=== PATIENT | female | born 1960 | race Caucasian/White ===

== ENCOUNTER 2020-10-02 12:35 | Inpatient (IN) | payer BC, OTHER ==
--- NOTE | 2020-10-02 13:26 | XR ---
EXAMINATION TYPE: XR chest 2V DATE OF EXAM: 10/02/2020 COMPARISON: 08/26/2011 HISTORY: 60 year-old female shortness of breath TECHNIQUE: PA and lateral views FINDINGS: Heart upper limits of normal in size. Bilateral patchy airspace disease. No pleural effusion. IMPRESSION: Patchy bilateral airspace disease. Correlate for multifocal or COVID pneumonia or other etiologies.
--- NOTE | 2020-10-02 14:21 | ED ---
SOB HPI - General Source: patient, RN notes reviewed Mode of arrival: wheelchair Limitations: no limitations <Santosh Barker - Last Filed: 10/02/20 14:30> <Law Trinidad - Last Filed: 10/02/20 16:31> - General Chief Complaint: Shortness of Breath Stated Complaint: Covid+, SOB Time Seen by Provider: 10/02/20 14:11 - History of Present Illness Initial Comments: Patient is a 60-year-old female that presents to the emergency Department status post, Covid-positive 09/23/2020 complaining of increased shortness of breath and difficulty breathing. She noted that as of last night she became dyspneic, weak to the point where was Lynn wall. She was in moderate distress while sitting up in bed during exam and interview. She nodded yes and no to questions for the most part but answered and short words sentences for others. Patient does not use supplemental oxygen at home. She denied any chest pain headache nausea vomiting diarrhea constipation fever fatigue chills (Santosh Barker) - Related Data Home Medications Medication Instructions Recorded Confirmed No Known Home Medications 10/02/20 10/02/20 Allergies Allergy/AdvReac Type Severity Reaction Status Date / Time codeine Allergy Rash/Hives Verified 10/02/20 15:23 Sulfa (Sulfonamide Allergy Rash/Hives Verified 10/02/20 15:23 Antibiotics) Review of Systems ROS Other: All systems not noted in ROS Statement are negative. <Santosh Barker - Last Filed: 10/02/20 14:30> ROS Other: All systems not noted in ROS Statement are negative. <Law Trinidad - Last Filed: 10/02/20 16:31> ROS Statement: Those systems with pertinent positive or pertinent negative responses have been documented in the HPI. Past Medical History Past Medical History: No Reported History History of Any Multi-Drug Resistant Organisms: None Reported Past Surgical History: Orthopedic Surgery Past Psychological History: Unable to Obtain Smoking Status: Former smoker Past Alcohol Use History: None Reported Past Drug Use History: None Reported <Santosh Barker - Last Filed: 10/02/20 14:30> General Exam Limitations: no limitations General appearance: alert, in distress (Moderate), obese Head exam: Present: atraumatic, normocephalic, normal inspection Eye exam: Present: normal appearance, PERRL, EOMI. Absent: scleral icterus, conjunctival injection, periorbital swelling Neck exam: Present: normal inspection. Absent: tenderness, meningismus, lymphadenopathy Respiratory exam: Present: decreased breath sounds. Absent: respiratory distress, wheezes, rales, rhonchi, stridor Cardiovascular Exam: Present: regular rate, normal rhythm, normal heart sounds. Absent: systolic murmur, diastolic murmur, rubs, gallop, clicks GI/Abdominal exam: Present: soft, normal bowel sounds. Absent: distended, tenderness, guarding, rebound, rigid Extremities exam: Present: normal inspection, full ROM, normal capillary refill. Absent: tenderness, pedal edema, joint swelling, calf tenderness Neurological exam: Present: alert, oriented X3, CN II-XII intact Psychiatric exam: Present: normal affect, normal mood Skin exam: Present: warm, dry, intact, normal color. Absent: rash <Santosh Barker - Last Filed: 10/02/20 14:30> Course <Law Trinidad - Last Filed: 10/02/20 16:31> Vital Signs 10/02/20 10/02/20 10/02/20 12:59 15:24 15:49 Temperature 98.3 F Pulse Rate 83 112 H 115 H Respiratory 16 20 20 Rate Blood Pressure 104/69 96/69 112/60 O2 Sat by Pulse 86 L 92 L 99 Oximetry - Reevaluation(s) Reevaluation #1: 10/02/20 14:54 EKG obtained at 1408, showing SVT, no ST segment elevation, rate of 190, QRS duration is narrow at 84, QTC 458, EKG repeated after 2 doses of adenosine, persistent supraventricular tachycardia, rate of 184, QRS duration 84, QTC 466, this EKG was obtained at 1439. (Law Trinidad) Reevaluation #2: 10/02/20 1537 Repeat EKG showing atrial fibrillation with RVR, rate of 163, QRS duration 86, Q TC 258, no ST segment elevation. (Law Trinidad) Medical Decision Making - EKG Data -: EKG Interpreted by Il Rate: tachycardia <Santosh Barker - Last Filed: 10/02/20 14:30> - Lab Data Result diagrams: 10/02/20 14:48 10/02/20 14:48 <Law Trinidad - Last Filed: 10/02/20 16:31> - Medical Decision Making 60-year-old female with increased shortness of breath and respiratory distress times one day. Labs, EKG, chest x-ray, 6 L via nasal cannula, 15 L via nonrebreather (in case oxygen levels don't come up), activity therapy specialist ordered. Case discussed with and handed off to Dr. Trinidad (Santosh Barker) - Lab Data Lab Results 10/02/20 10/02/20 10/02/20 Range/Units 14:48 14:48 14:48 WBC 3.8 (3.8-10.6) k/uL RBC 5.22 (3.80-5.40) m/uL Hgb 15.3 (11.4-16.0) gm/dL Hct 42.9 (34.0-46.0) % MCV 82.1 (80.0-100.0) fL MCH 29.4 (25.0-35.0) pg MCHC 35.8 (31.0-37.0) g/dL RDW 13.3 (11.5-15.5) % Plt Count 174 (150-450) k/uL MPV 8.0 Neutrophils % 79 % Lymphocytes % 12 % Monocytes % 5 % Eosinophils % 0 % Basophils % 0 % Neutrophils # 3.0 (1.3-7.7) k/uL Lymphocytes # 0.5 L (1.0-4.8) k/uL Monocytes # 0.2 (0-1.0) k/uL Eosinophils # 0.0 (0-0.7) k/uL Basophils # 0.0 (0-0.2) k/uL PT 10.3 (9.0-12.0) sec INR 1.0 (<1.2) APTT 22.7 (22.0-30.0) sec D-Dimer 1.77 H (<0.60) mg/L FEU Sodium 132 L (137-145) mmol/L Potassium 4.0 (3.5-5.1) mmol/L Chloride 100 (98-107) mmol/L Carbon Dioxide 19 L (22-30) mmol/L Anion Gap 13 mmol/L BUN 25 H (7-17) mg/dL Creatinine 0.89 (0.52-1.04) mg/dL Est GFR (CKD-EPI)AfAm 81 (>60 ml/min/1.73 sqM) Est GFR (CKD-EPI)NonAf 70 (>60 ml/min/1.73 sqM) Glucose 131 H (74-99) mg/dL Plasma Lactic Acid Jelani (0.7-2.0) mmol/L Calcium 7.8 L (8.4-10.2) mg/dL Magnesium 2.0 (1.6-2.3) mg/dL Total Bilirubin 0.5 (0.2-1.3) mg/dL AST 122 H (14-36) U/L ALT 47 H (4-34) U/L Alkaline Phosphatase 63 (38-126) U/L Lactate Dehydrogenase 2894 H (313-618) U/L Troponin I (0.000-0.034) ng/mL C-Reactive Protein 68.2 H (<10.0) mg/L Total Protein 6.5 (6.3-8.2) g/dL Albumin 3.7 (3.5-5.0) g/dL 10/02/20 10/02/20 Range/Units 14:48 14:48 WBC (3.8-10.6) k/uL RBC (3.80-5.40) m/uL Hgb (11.4-16.0) gm/dL Hct (34.0-46.0) % MCV (80.0-100.0) fL MCH (25.0-35.0) pg MCHC (31.0-37.0) g/dL RDW (11.5-15.5) % Plt Count (150-450) k/uL MPV Neutrophils % % Lymphocytes % % Monocytes % % Eosinophils % % Basophils % % Neutrophils # (1.3-7.7) k/uL Lymphocytes # (1.0-4.8) k/uL Monocytes # (0-1.0) k/uL Eosinophils # (0-0.7) k/uL Basophils # (0-0.2) k/uL PT (9.0-12.0) sec INR (<1.2) APTT (22.0-30.0) sec D-Dimer (<0.60) mg/L FEU Sodium (137-145) mmol/L Potassium (3.5-5.1) mmol/L Chloride (98-107) mmol/L Carbon Dioxide (22-30) mmol/L Anion Gap mmol/L BUN (7-17) mg/dL Creatinine (0.52-1.04) mg/dL Est GFR (CKD-EPI)AfAm (>60 ml/min/1.73 sqM) Est GFR (CKD-EPI)NonAf (>60 ml/min/1.73 sqM) Glucose (74-99) mg/dL Plasma Lactic Acid Jelani 1.7 (0.7-2.0) mmol/L Calcium (8.4-10.2) mg/dL Magnesium (1.6-2.3) mg/dL Total Bilirubin (0.2-1.3) mg/dL AST (14-36) U/L ALT (4-34) U/L Alkaline Phosphatase (38-126) U/L Lactate Dehydrogenase (313-618) U/L Troponin I 0.026 (0.000-0.034) ng/mL C-Reactive Protein (<10.0) mg/L Total Protein (6.3-8.2) g/dL Albumin (3.5-5.0) g/dL - EKG Data EKG Comments: Ventricular rate 190 bpm, NV interval *milliseconds, QRS duration 84 ms, QT/QTC 258/458 ms, PareT axes */2/-77. Atrial flutter with variable AV block, marked ST abnormality, possible inferior some endocardial injury, abnormal ECG. No previous EKG available to compare study to. (Santosh Barker) Critical Care Time Critical Care Time: Yes Total Critical Care Time: 35 <Law Trinidad - Last Filed: 10/02/20 16:31> Disposition <Santosh Barker - Last Filed: 10/02/20 14:30> Is patient prescribed a controlled substance at d/c from ED?: No Decision to Admit Reason: Admit from EC Decision Date: 10/02/20 Decision Time: 16:31 <Law Trinidad - Last Filed: 10/02/20 16:31> Clinical Impression: Pneumonia due to COVID-19 virus, Hypoxia, SVT (supraventricular tachycardia), Atrial fibrillation with RVR Disposition: ADMITTED IP TO THIS HOSP Condition: Stable Referrals: Herberth Hurd MD [Primary Care Provider] - 1-2 days
[2020-10-02] MEDS ORDERED: DILTIAZEM DRIP BOLUS FROM BAG 1 MG SOLN IV ONE (14:49)
[2020-10-02] MEDS ORDERED: DEXAMETHASONE SOD PHOSPHATE 10 MG/ML 1 ML VIAL IV STA (14:55)
[2020-10-02] MEDS ORDERED: DILTIAZEM 125 MG in SODIUM CHLORIDE 0.9% 100 ML IV SCH (15:00)
[2020-10-02 15:23] LABS: Basophils % (A) 0 %; Eosinophils % (A) 0 %; HCT 42.9 % (34.0-46.0); HGB 15.3 gm/dL (11.4-16.0); Lymphocytes # (A) 0.5 k/uL (1.0-4.8); Lymphocytes % (A) 12 %; MCH 29.4 pg (25.0-35.0); MCHC 35.8 g/dL (31.0-37.0); MCV 82.1 fL (80.0-100.0); Monocytes # (A) 0.2 k/uL (0-1.0); Monocytes % (A) 5 %; Neutrophils % (A) 79 %; Platelet Count 174 k/uL (150-450); RBC 5.22 m/uL (3.80-5.40); RDW 13.3 % (11.5-15.5); WBC 3.8 k/uL (3.8-10.6)
[2020-10-02 15:35] LABS: Partial Thromboplastin Time 22.7 sec (22.0-30.0); Prothrombin Time 10.3 sec (9.0-12.0)
[2020-10-02 15:39] LABS: Albumin 3.7 g/dL (3.5-5.0); C Reactive Protein 68.2 mg/L (<10.0); Calcium 7.8 mg/dL (8.4-10.2); Total Bilirubin 0.5 mg/dL (0.2-1.3); Total Protein 6.5 g/dL (6.3-8.2)
[2020-10-02 15:50] LABS: D-Dimer 1.77 mg/L FEU (<0.60)
[2020-10-02] MEDS ORDERED: HEPARIN SODIUM 1,000 UN/ML (10ML VL) IV PRN (16:02)
[2020-10-02] MEDS ORDERED: HEPARIN SODIUM 1,000 UN/ML (10ML VL) IV ONE (16:02)
[2020-10-02] MEDS ORDERED: CALCIUM GLUCONATE 1 GM in SODIUM CHLORIDE 0.9% 100 ML IVPB ONE (16:03)
[2020-10-02] MEDS ORDERED: NALOXONE 0.4 MG/ML 1 ML VIAL IV PRN ×2 (16:21→18:31)
[2020-10-02] MEDS: HEPARIN SOD,PORK IN 0.45% NACL 25,000 UNIT in 0.45% NACL 1 250ML.BAG IV SCH (17:52)
[2020-10-02] MEDS: SODIUM CHLORIDE 0.9% 1,000 ML IV SCH (18:01)
[2020-10-02] MEDS ORDERED: ONDANSETRON 4 MG/2 ML VIAL IVP PRN (18:31)
--- NOTE | 2020-10-02 18:40 | P.HPIM ---
History of Present Illness H&P Date: 10/02/20 Chief Complaint: sob 60-year-old female that presents to the emergency Department with worsening shortness of breath, cough, fevers and chills, nausea and vomiting as well as diarrhea. No chest or abdominal pain. Patient was diagnosed with Covid- 09/23/2020, was discharged home but came back due to worsening symptoms. In the emergency department her 2 saturations were 85% on room air, heart rate was up in the 120s to 130s. Blood pressure on the lower side. EKG showed atrial fibrillation with rapid ventricular response. She was started on Cardizem drip as well as heparin drip. She was subsequently admitted for further management. Review of Systems Complete review of system performed, pertinent positives per HPI, otherwise negative Past Medical History Past Medical History: No Reported History History of Any Multi-Drug Resistant Organisms: None Reported Past Surgical History: Orthopedic Surgery Past Psychological History: Unable to Obtain Smoking Status: Former smoker Past Alcohol Use History: None Reported Past Drug Use History: None Reported Medications and Allergies Home Medications Medication Instructions Recorded Confirmed Type No Known Home Medications 10/02/20 10/02/20 History Allergies Allergy/AdvReac Type Severity Reaction Status Date / Time codeine Allergy Rash/Hives Verified 10/02/20 15:23 Sulfa (Sulfonamide Allergy Rash/Hives Verified 10/02/20 15:23 Antibiotics) Physical Exam Vitals: Vital Signs Temp Pulse Resp BP Pulse Ox 10/02/20 18:01 126 H 20 116/61 91 L 10/02/20 15:49 115 H 20 112/60 99 10/02/20 15:24 112 H 20 96/69 92 L 10/02/20 12:59 98.3 F 83 16 104/69 86 L Intake and Output 10/02/20 10/02/20 10/02/20 06:59 14:59 22:59 Other: Weight 128.367 kg Constitutional: No acute distress, conversant, pleasant Eyes:Anicteric sclerae, moist conjunctiva, no lid-lag, PERRLA, ENMT: Oropharynx clear, no erythema, exudates Neck: Supple, FROM, no masses, or JVD, No carotid bruits, No thyromegaly Lungs: Clear to auscultation, Clear to percussion, Normal respiratory effort, no accessory muscle use Cardiovascular: Irregularly irregular, tachycardic No murmurs, gallops, or rubs, No peripheral edema Abdominal: Soft, Nontender, no guarding, rebound or rigidity, Normoactive bowel sounds, No hepatomegaly, No splenomegaly, No palpable mass Skin: Normal temperature, tone, texture, turgor, no induration, No subcutaneous nodules, No rash, lesions, No ulcers Extremities: No digital cyanosis, No clubbing, Pedal pulses intact and symmetrical, Radial pulses intact and symmetrical, No calf tenderness Psychiatric: Alert and oriented to person, place and time, appropriate affect, intact judgement Neuro: Muscles Strength 5/5 in all 4 extremities, Sensation to light touch grossly present throughout, Cranial nerves II-XII grossly intact, no focal sensory deficits Results CBC & Chem 7: 10/02/20 14:48 10/02/20 14:48 Labs: Abnormal Lab Results - Last 24 Hours (Table) 10/02/20 10/02/20 10/02/20 Range/Units 14:48 14:48 14:48 Lymphocytes # 0.5 L (1.0-4.8) k/uL D-Dimer 1.77 H (<0.60) mg/L FEU Sodium 132 L (137-145) mmol/L Carbon Dioxide 19 L (22-30) mmol/L BUN 25 H (7-17) mg/dL Glucose 131 H (74-99) mg/dL Calcium 7.8 L (8.4-10.2) mg/dL AST 122 H (14-36) U/L ALT 47 H (4-34) U/L Lactate Dehydrogenase 2894 H (313-618) U/L C-Reactive Protein 68.2 H (<10.0) mg/L Assessment and Plan Plan: Acute hypoxemic respiratory failure secondary to Covid 19 pneumonia Start Decadron 6 mg IV daily Out of a window for remdisivir treatment Currently on 100 percent nonrebreather mask, continue to keep sats above 92%. Pulmonary consult Atrial fibrillation with rapid ventricular response Cardizem drip Add metoprolol 25 mg by mouth twice daily Cardiology consult Echo Hyponatremia Gentle IV fluid hydration Recheck in am Patient admitted to inpatient, expected length of stay more than 2 midnights
[2020-10-02] MEDS: METOPROLOL TARTRATE 25 MG TAB PO SCH ×2 (21:52→21:57)
--- NOTE | 2020-10-03 08:50 | XR ---
EXAMINATION TYPE: XR chest 1V portable DATE OF EXAM: 10/03/2020 COMPARISON: 10/02/2020 HISTORY: Shortness of breath TECHNIQUE: Single frontal view of the chest is obtained. FINDINGS: There are diffuse interstitial and partially consolidative opacities in both lungs with mi ld interval worsening since the prior study. The heart is mildly prominent. There is no large pleural effusion. There is no thorax. The osseous st ructures are intact. Impression: Diffuse lung opacification with moderate interval worsening in the interval.
[2020-10-03] MEDS ORDERED: HYDROcodone/APAP 5-325MG 1 EACH TAB PO PRN (08:55)
[2020-10-03] MEDS ORDERED: DILTIAZEM ORAL 30 MG TAB PO SCH (09:00)
[2020-10-03] MEDS ORDERED: TOCILIZUMAB 800 MG in SODIUM CHLORIDE 0.9% 60 ML IV ONE (09:02)
[2020-10-03] MEDS: FAMOTIDINE 20 MG TAB PO SCH (09:18)
[2020-10-03] MEDS: ASCORBIC ACID 500 MG TAB PO SCH (09:18)
[2020-10-03] MEDS: DEXAMETHASONE SOD PHOSPHATE 10 MG/ML 1 ML VIAL IV SCH (09:18)
[2020-10-03] MEDS: ZINC SULFATE 220 MG CAP PO SCH (09:18)
[2020-10-03] MEDS: METOPROLOL TARTRATE 25 MG TAB PO SCH ×2 (09:18→21:12)
[2020-10-03] MEDS: CHOLECALCIFEROL 25 MCG (1000 IU) TABLET PO SCH (09:22)
[2020-10-03 09:33] LABS: Albumin 3.3 g/dL (3.5-5.0)
[2020-10-03 09:35] LABS: D-Dimer 0.98 mg/L FEU (<0.60); Partial Thromboplastin Time 47.5 sec (22.0-30.0)
[2020-10-03 09:50] LABS: Basophils % (A) 0 %; Eosinophils % (A) 0 %; HGB 14.3 gm/dL (11.4-16.0); Lymphocytes # (A) 0.4 k/uL (1.0-4.8); Lymphocytes % (A) 9 %; MCHC 34.1 g/dL (31.0-37.0); MCV 85.1 fL (80.0-100.0); Mean Platelet Volume 7.9; Monocytes # (A) 0.2 k/uL (0-1.0); Monocytes % (A) 5 %; Neutrophils # (A) 3.2 k/uL (1.3-7.7); Neutrophils % (A) 83 %; Platelet Count 191 k/uL (150-450); RBC 4.94 m/uL (3.80-5.40); RDW 13.5 % (11.5-15.5); WBC 3.9 k/uL (3.8-10.6)
[2020-10-03 09:57] LABS: C Reactive Protein 76.8 mg/L (<10.0); Calcium 7.8 mg/dL (8.4-10.2); Magnesium 2.4 mg/dL (1.6-2.3); Phosphorus 3.1 mg/dL (2.5-4.5); Total Bilirubin 0.5 mg/dL (0.2-1.3)
--- NOTE | 2020-10-03 10:00 | ECHOF ---
Referral Reason:sob MEASUREMENTS -------- HEIGHT: 175.3 cm WEIGHT: 131.1 kg BP: IVSd: 1.4 cm (0.6 - 1.1) LVIDd: 4.0 cm (3.9 - 5.3) LVPWd: 1.4 cm (0.6 - 1.1) IVSs: 2.1 cm LVIDs: 2.6 cm LVPWs: 1.6 cm MV EXCURSION: 14.317 mm (> 18.000) MV EF SLOPE: 79 mm/s (70 - 150) EPSS: 0.5 cm MV E Harshad: 0.98 m/s MV DecT: 222 ms MV A Harshad: 0.84 m/s MV E/A Ratio: 1.16 RAP: 5.00 mmHg RVSP: 15.28 mmHg FINDINGS -------- This was a technically difficult study with suboptimal views. The left ventricular size is normal. There is moderate concentric left ventricular hypertrophy. O verall left ventricular systolic function is normal with, an EF between 55 - 60 %. The right ventricle is normal in size. The left atrial size is normal. The right atrial size is normal. xx ml of Lumason was utilized for enhancement of images. The aortic valve is trileaflet and appears structurally normal. The mitral valve is normal. There is trace mitral regurgitation. The tricuspid valve appears structurally normal. Trace tricuspid regurgitation present. Right nisha tricular systolic pressure is normal at < 35 mmHg. There is no pulmonic regurgitation present. The aortic root size is normal. IVC Not well visulized. There is no pericardial effusion. CONCLUSIONS -------- 1. The left ventricular size is normal. 2. There is moderate concentric left ventricular hypertrophy. 3. Overall left ventricular systolic function is normal with, an EF between 55 - 60 %. 4. There is trace mitral regurgitation. 5. Trace tricuspid regurgitation present. 6. There is no pericardial effusion. CYLINDER BLOCK MECHANIC: Jenny Stoddard RD
[2020-10-03] MEDS ORDERED: FUROSEMIDE 10 MG/ML 4 ML VIAL IV STA (10:17)
[2020-10-03 10:39] LABS: Potassium 4.6 mmol/L (3.5-5.1)
[2020-10-03 11:04] LABS: Glucose,Whole Blood 125 mg/dL (75-99)
--- NOTE | 2020-10-03 11:18 | P.CRDCN ---
History of Present Illness Consult date: 10/03/20 History of present illness: CHIEF COMPLAINT: A. fib with RVR HISTORY OF PRESENT ILLNESS: This is a 60-year-old female with a past medical history significant for former nicotine dependence. 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 We have been asked to see the patient in consultation for A. fib with RVR. Patient presented to the hospital with a chief complaint of shortness of breath. Patient was diagnosed with Covid on 09/23/2020. Patient was admitted to the hospital for further evaluation. Patient was found to be in SVT and received 2 doses of adenosine. Repeat EKG received afib with RVR. Patient was started on IV cardizem and IV heparin. Patient has since converted to sinus mechanism. IV Cardizem was discontinued this morning. Patient has been started on metoprolol 25 mg twice a day. Patient is currently on 15L NRB mask and also Airvo. Patient is going to be transferred to the ICU for further monitoring. DIAGNOSTICS: EKG reveals A. fib with RVR. Current telemetry reveals sinus mechanism. Chest xray patchy bilateral airspace disease. Laboratory data: WBC 3.9. Hemoglobin 14.3. Platelet count 191. Sodium 136. Potassium 4.6. BUN 26. Creatinine 0.88. Magnesium 2.4. Troponin 0.026. Current home cardiac medications include none Echocardiogram completed revealed ejection fraction 55-60%, trace mitral regurgitation, and trace tricuspid regurgitation REVIEW OF SYSTEMS: Thorough review of systems not completed secondary to limited evaluation/examination and due to Covid19 PHYSICAL EXAM: Thorough physical exam not completed secondary to limited evaluation/examination and due to Covid19 ASSESSMENT: Covid 19 Acute hypoxic respiratory failure Paroxysmal supraventricular tachycardia New-onset paroxysmal atrial fibrillation with RVR Former nicotine dependence PLAN: IV Cardizem has been discontinued Continue metoprolol 25 mg twice a day Patient does not require anticoagulation from a cardiac standpoint. May discontinue IV heparin from a cardiac standpoint. However, this was discussed with Dr. Neves who would like IV heparin to remain infusing at this time. We will defer anticoagulation to their service. Further recommendations pending patient course Nurse practitioner note has been reviewed by physician. Signing provider agrees with the documented findings, assessment, and plan of care. Past Medical History Past Medical History: No Reported History History of Any Multi-Drug Resistant Organisms: None Reported Past Surgical History: Orthopedic Surgery Past Psychological History: Unable to Obtain Smoking Status: Former smoker Past Alcohol Use History: None Reported Past Drug Use History: None Reported - Past Family History Father Family Medical History: Cancer, Hypertension Mother Family Medical History: Cancer Medications and Allergies Home Medications Medication Instructions Recorded Confirmed Type No Known Home Medications 10/02/20 10/02/20 History Allergies Allergy/AdvReac Type Severity Reaction Status Date / Time codeine Allergy Rash/Hives Verified 10/02/20 15:23 Sulfa (Sulfonamide Allergy Rash/Hives Verified 10/02/20 15:23 Antibiotics) Physical Exam Vitals: Vital Signs Temp Pulse Pulse Resp BP BP Pulse Ox 10/03/20 08:00 98.3 F 89 20 136/70 93 L 10/03/20 04:50 84 18 108/58 88 L 10/02/20 23:20 98.4 F 72 19 111/58 93 L 10/02/20 21:45 91 L 10/02/20 21:00 98.6 F 90 20 108/59 87 L 10/02/20 18:01 126 H 20 116/61 91 L 10/02/20 15:49 115 H 20 112/60 99 10/02/20 15:24 112 H 20 96/69 92 L 10/02/20 12:59 98.3 F 83 16 104/69 86 L Intake and Output 10/02/20 10/03/20 10/03/20 22:59 06:59 14:59 Intake Total 54.5 0 Balance 54.5 0 Intake: Intake, IV Titration 54.5 Amount Heparin Sod,Pork in 0.45% 54.5 NaCl 25,000 unit In 0.45 % NaCl 1 250ml.bag @ 7.79 UNITS/KG/HR 10 mls/hr IV .Q24H [facility] Rx#:[id number] Oral 0 Other: Voiding Method Bedside Commode Bedside Commode # Voids 2 Weight 128.367 kg 131.5 kg Results 10/03/20 07:23 10/03/20 08:27 Cardiac Enzymes 10/02/20 10/02/20 10/03/20 Range/Units 14:48 14:48 08:27 AST 122 H 114 H (14-36) U/L Lactate Dehydrogenase 2894 H 3596 H (313-618) U/L Troponin I 0.026 (0.000-0.034) ng/mL Coagulation 10/02/20 10/02/20 10/03/20 Range/Units 14:48 22:34 08:27 PT 10.3 (9.0-12.0) sec APTT 22.7 36.0 H 47.5 H (22.0-30.0) sec CBC 10/02/20 10/03/20 Range/Units 14:48 07:23 WBC 3.8 3.9 (3.8-10.6) k/uL RBC 5.22 4.94 (3.80-5.40) m/uL Hgb 15.3 14.3 (11.4-16.0) gm/dL Hct 42.9 42.0 (34.0-46.0) % Plt Count 174 191 (150-450) k/uL Comprehensive Metabolic Panel 10/02/20 10/03/20 Range/Units 14:48 08:27 Sodium 132 L 136 L (137-145) mmol/L Potassium 4.0 4.6 (3.5-5.1) mmol/L Chloride 100 104 (98-107) mmol/L Carbon Dioxide 19 L 25 (22-30) mmol/L BUN 25 H 26 H (7-17) mg/dL Creatinine 0.89 0.88 (0.52-1.04) mg/dL Glucose 131 H 135 H (74-99) mg/dL Calcium 7.8 L 7.8 L (8.4-10.2) mg/dL AST 122 H 114 H (14-36) U/L ALT 47 H 49 H (4-34) U/L Alkaline Phosphatase 63 68 (38-126) U/L Total Protein 6.5 6.0 L (6.3-8.2) g/dL Albumin 3.7 3.3 L (3.5-5.0) g/dL Current Medications Generic Name Dose Route Start Last Admin Trade Name Freq PRN Reason Stop Dose Admin Acetaminophen 650 mg 10/02/20 16:21 Acetaminophen Tab 325 Mg Tab PO Q6HR PRN Mild Pain or Fever > 100.5 Hydrocodone Bitart/Acetaminophen 1 each 10/03/20 08:55 10/03/20 09:19 Hydrocodone/Apap 5-325mg 1 Each Tab PO 1 each Q6HR PRN Administration Pain Ascorbic Acid 1,000 mg 04/03/21 09:00 10/03/20 09:18 Ascorbic Acid 500 Mg Tab PO 1,000 mg DAILY EILEEN Administration Cholecalciferol 100 mcg 10/03/20 09:00 10/03/20 09:22 Cholecalciferol 25 Mcg (1000 Iu) Tablet PO 100 mcg DAILY EILEEN Administration Dexamethasone Sodium Phosphate 6 mg 10/03/20 09:00 10/03/20 09:18 Dexamethasone Sod Phosphate 10 Mg/Ml 1 Ml Vial IV 6 mg DAILY EILEEN Administration Famotidine 40 mg 10/03/20 09:00 10/03/20 09:18 Famotidine 20 Mg Tab PO 40 mg DAILY EILEEN Administration Heparin Sodium (Porcine) 0 unit 10/02/20 16:02 Heparin Sodium 1,000 Un/Ml (10ml Vl) IV PER PROTOCOL PRN Low PTT Protocol Heparin Sodium/Sodium Chloride 250 mls @ 10 mls/hr 10/02/20 16:15 10/02/20 23:19 25,000 unit/ Sodium Chloride IV 9.79 units/kg/hr .Q24H EILEEN 12.567 mls/hr Titration Protocol 7.79 UNITS/KG/HR Sodium Chloride 1,000 mls @ 25 mls/hr 10/02/20 16:30 10/02/20 18:01 Saline 0.9% IV 50 mls/hr .Q24H EILEEN Administration Metoprolol Tartrate 25 mg 10/02/20 18:45 10/03/20 09:18 Metoprolol Tartrate 25 Mg Tab PO 25 mg BID EILEEN Administration Naloxone HCl 0.2 mg 10/02/20 16:21 Naloxone 0.4 Mg/Ml 1 Ml Vial IV Q2M PRN Opioid Reversal Ondansetron HCl 4 mg 10/02/20 18:31 Ondansetron 4 Mg/2 Ml Vial IVP Q8HR PRN Nausea And Vomiting Zinc Sulfate 220 mg 10/03/20 09:00 10/03/20 09:18 Zinc Sulfate 220 Mg Cap PO 220 mg DAILY EILEEN Administration Intake and Output 10/02/20 10/03/20 10/03/20 22:59 06:59 14:59 Intake Total 54.5 0 Balance 54.5 0 Intake: Intake, IV Titration 54.5 Amount Heparin Sod,Pork in 0.45% 54.5 NaCl 25,000 unit In 0.45 % NaCl 1 250ml.bag @ 7.79 UNITS/KG/HR 10 mls/hr IV .Q24H [facility] Rx#:[id number] Oral 0 Other: Voiding Method Bedside Commode Bedside Commode # Voids 2 Weight 128.367 kg 131.5 kg 10/03/20 07:23 10/03/20 08:27
--- NOTE | 2020-10-03 12:26 | US ---
EXAMINATION TYPE: US venous doppler duplex LE BI DATE OF EXAM: 10/03/2020 11:45 AM COMPARISON: NONE CLINICAL HISTORY: 60-year-old female pain, COVID. SIDE PERFORMED: Bilateral TECHNIQUE: The lower extremity deep venous system is examined utilizing real time linear array sonog justine with graded compression, doppler sonography and color-flow sonography. FINDINGS: VESSELS IMAGED: Common Femoral Vein Deep Femoral Vein Greater Saphenous Vein * Femoral Vein Popliteal Vein Small Saphenous Vein * Proximal Calf Veins (* superficial vessels) Right Leg: no evidence of DVT Left Leg: no evidence of DVT IMPRESSION: No evidence for DVT within the bilateral lower extremities imaged from the groin to the upper calves.
--- NOTE | 2020-10-03 13:12 | P.PN ---
Subjective Progress Note Date: 10/03/20 (delayed charting aptient seen at 0830) Principal diagnosis: Shortness of breath Patient is a 60-year-old female with no known past medical history who presented to the ER secondary to shortness of breath and cough. She was diagnosed with coated 19 on 09/23/20. In the ER she was satting 85% on room air and was found to be in A. fib with RVR and heart rates 120 to 130. Initial labs showed d- dimer of 1.77, lymphocytes 0.5, sodium 132, carbon dioxide 19, BUN 25, AST 122, ALT 47, LDH 2894, and CRP to exceed 8.2. She was admitted and was started on Decadron. She was outside of the window for Remdesivir. She was started on a Cardizem drip as well as metoprolol orally for her A. fib. She was also started on a heparin drip. She's given fluids for her hyponatremia. Pulmonary was consulted. She was requiring a nonrebreather on admission and overnight on 10/03 she was requiring maximal therapy through an air follow along with her nonrebreather to maintain low normal O2 sats. She converted to normal sinus rhythm and her Cardizem drip was stopped. Cardiology was consulted for her A. fib. She was subsequently transferred to the ICU. She had reported some leg pain and venous Dopplers were negative in bilateral lower extremities heparin drip was stopped and she had converted to normal sinus mechanism and she was subsequently started on prophylactic Lovenox. Echocardiogram showed ejection fraction 55-60% with moderate LVH. Patient seen and examined at bedside. She reports shortness of breath, headache, no nausea or vomiting, no diarrhea, extreme fatigue. General: Ill appearing, moderate distress appears at stated age Derm: warm, dry Head: atraumatic, normocephalic, symmetric Eyes: EOMI, no lid lag, anicteric sclera Mouth: no lip lesion, mucus membranes moist Cardiovascular: S1S2 reg, no murmur, positive posterior tibial pulse bilateral, Lungs: Diffuse wheezing, 3 word conversational dyspnea, + sternal retractions Abdominal: soft, nontender to palpation, no guarding, no appreciable organomegaly Ext: no gross muscle atrophy, no edema, no contractures Neuro: CN II-XI grossly intact, no focal neuro deficits Psych: Alert, oriented, appropriate affect COVID 19 pneumonia with acute hypoxic respiratory failure -Continue with Decadron -Zinc, vitamin C, vitamin D -Pulmonary recommendations: Case discussed with Dr. Holland who agrees with transferring patient to the ICU in consideration of Actemra - supportive care - scheduled and prn BD - Lovenox - Follow inflammatory markers -1 unit convalescent plasma Paroxysmal atrial fibrillation, currently in normal sinus rhythm -Trigger is likely pulmonary disease with her COVID -Continue with metoprolol -Cardiology recommendations appreciated -Echocardiogram with ejection fraction 55-60%, moderate LVH Transaminitis likely secondary to illness -Follow liver enzymes -If remains elevated after Covid improves consider cholesterol level and liver ultrasound to rule out fatty liver disease Hyponatremia secondary to dehydration -Improving -Continue with IV fluids Morbid obesity with BMI 42.8 -Structured outpatient weight loss DVT prophylaxis: Lovenox Discussed with: Patient, nursing, Dr. Holland Anticipated discharge: undetermined Anticipated discharge place: undetermined A total of 45 minutes was spent on the care of this complex patient more than 50% of the time was spent in counseling and care coordination. Objective - Vital Signs Vital signs: Vital Signs Temp 98.3 F 10/03/20 08:00 Pulse 89 10/03/20 08:00 Resp 20 10/03/20 08:00 BP 136/70 10/03/20 08:00 Pulse Ox 93 L 10/03/20 08:00 Intake & Output 10/02/20 10/03/20 10/03/20 18:59 06:59 18:59 Intake Total 54.5 0 Balance 54.5 0 Weight 128.367 kg 131.5 kg Intake: Intake, IV Titration 54.5 Amount Heparin Sod,Pork in 0.45% 54.5 NaCl 25,000 unit In 0.45 % NaCl 1 250ml.bag @ 7.79 UNITS/KG/HR 10 mls/hr IV .Q24H [facility] Rx#:[id number] Oral 0 Other: Voiding Method Bedside Commode # Voids 2 - Labs CBC & Chem 7: 10/03/20 07:23 10/03/20 08:27 Labs: Abnormal Lab Results - Last 24 Hours (Table) 10/02/20 10/02/20 10/02/20 Range/Units 14:48 14:48 14:48 Lymphocytes # 0.5 L (1.0-4.8) k/uL APTT (22.0-30.0) sec D-Dimer 1.77 H (<0.60) mg/L FEU Sodium 132 L (137-145) mmol/L Carbon Dioxide 19 L (22-30) mmol/L BUN 25 H (7-17) mg/dL Glucose 131 H (74-99) mg/dL POC Glucose (mg/dL) (75-99) mg/dL Calcium 7.8 L (8.4-10.2) mg/dL Magnesium (1.6-2.3) mg/dL AST 122 H (14-36) U/L ALT 47 H (4-34) U/L Lactate Dehydrogenase 2894 H (313-618) U/L C-Reactive Protein 68.2 H (<10.0) mg/L Total Protein (6.3-8.2) g/dL Albumin (3.5-5.0) g/dL 10/02/20 10/03/20 10/03/20 Range/Units 22:34 07:23 08:27 Lymphocytes # 0.4 L (1.0-4.8) k/uL APTT 36.0 H (22.0-30.0) sec D-Dimer (<0.60) mg/L FEU Sodium 136 L (137-145) mmol/L Carbon Dioxide (22-30) mmol/L BUN 26 H (7-17) mg/dL Glucose 135 H (74-99) mg/dL POC Glucose (mg/dL) (75-99) mg/dL Calcium 7.8 L (8.4-10.2) mg/dL Magnesium 2.4 H (1.6-2.3) mg/dL AST 114 H (14-36) U/L ALT 49 H (4-34) U/L Lactate Dehydrogenase 3596 H (313-618) U/L C-Reactive Protein 76.8 H (<10.0) mg/L Total Protein 6.0 L (6.3-8.2) g/dL Albumin 3.3 L (3.5-5.0) g/dL 10/03/20 10/03/20 Range/Units 08:27 11:01 Lymphocytes # (1.0-4.8) k/uL APTT 47.5 H (22.0-30.0) sec D-Dimer 0.98 H (<0.60) mg/L FEU Sodium (137-145) mmol/L Carbon Dioxide (22-30) mmol/L BUN (7-17) mg/dL Glucose (74-99) mg/dL POC Glucose (mg/dL) 125 H (75-99) mg/dL Calcium (8.4-10.2) mg/dL Magnesium (1.6-2.3) mg/dL AST (14-36) U/L ALT (4-34) U/L Lactate Dehydrogenase (313-618) U/L C-Reactive Protein (<10.0) mg/L Total Protein (6.3-8.2) g/dL Albumin (3.5-5.0) g/dL
[2020-10-03] MEDS: SODIUM CHLORIDE 0.9% 1,000 ML IV SCH (13:13)
--- NOTE | 2020-10-03 13:49 | P.CNPUL ---
History of Present Illness Consult date: 10/03/20 Reason for consult: pneumonia Chief complaint: Shortness of breath and cough. History of present illness: This is a 60-year-old female with no previous significant medical history, on 09/23/20, she was diagnosed with acute covid 19 infection. Patient took [id number] medications. And yesterday she presented to the ER and she was found in atrial fibrillation with RVR. And her chest x-ray showed diffuse interstitial pneumonitis. Patient was found to have elevated inflammatory markers with LDH of 2894, and C-reactive protein of 8.2. Considering the patient had over 1 week of symptoms, she was felt to be outside the window for REM. Her atrial fibrillation and RVR was treated with Cardizem and later metopr olol orally. She was also placed on heparin. Chest x-ray was quite concerning. Patient required placement on a nonrebreather mask. Later placed on high flow airvo with a non-rebreather mask, and her O2 saturations remained marginal around 88-93%. I saw this patient this morning, and I recommended immediate transfer to the ICU. Chest x-ray was reviewed and it is consistent with acute Covid 19 pneumonitis. Her d-dimer was 0.98.CBC was relatively normal. LDH is up to 3596. And C-reactive protein is up to 76.8 after evaluating the patient, I recommended convalescent plasma. I also recommended actemra. Review of Systems Constitutional: Weakness fatigue aches and pains, fever and chills. HEENT: Negative. Pulmonary: Cough and shortness of breath GI: Negative. Genitourinary: Negative. Musculoskeletal: Aches and pains Skin: Negative. Hematologic: Negative. Psychiatric: Negative. Neurologic: Negative. Endocrine: Negative. Past Medical History Past Medical History: No Reported History History of Any Multi-Drug Resistant Organisms: None Reported Past Surgical History: Orthopedic Surgery Past Psychological History: Unable to Obtain Smoking Status: Former smoker Past Alcohol Use History: None Reported Past Drug Use History: None Reported - Past Family History Father Family Medical History: Cancer, Hypertension Mother Family Medical History: Cancer Medications and Allergies Home Medications Medication Instructions Recorded Confirmed Type No Known Home Medications 10/02/20 10/02/20 History Allergies Allergy/AdvReac Type Severity Reaction Status Date / Time codeine Allergy Rash/Hives Verified 10/02/20 15:23 Sulfa (Sulfonamide Allergy Rash/Hives Verified 10/02/20 15:23 Antibiotics) Physical Exam Vitals: Vital Signs Temp Pulse Pulse Resp BP BP Pulse Ox 10/03/20 08:00 98.3 F 89 20 136/70 93 L 10/03/20 04:50 84 18 108/58 88 L 10/02/20 23:20 98.4 F 72 19 111/58 93 L 10/02/20 21:45 91 L 10/02/20 21:00 98.6 F 90 20 108/59 87 L 10/02/20 18:01 126 H 20 116/61 91 L 10/02/20 15:49 115 H 20 112/60 99 10/02/20 15:24 112 H 20 96/69 92 L Intake and Output 10/02/20 10/03/20 10/03/20 22:59 06:59 14:59 Intake Total 54.5 0 Balance 54.5 0 Intake: Intake, IV Titration 54.5 Amount Heparin Sod,Pork in 0.45% 54.5 NaCl 25,000 unit In 0.45 % NaCl 1 250ml.bag @ 7.79 UNITS/KG/HR 10 mls/hr IV .Q24H [facility] Rx#:[id number] Oral 0 Other: Voiding Method Bedside Commode Bedside Commode # Voids 2 Weight 128.367 kg 131.5 kg Physical Exam: Revealed 60-year-old female obese, in moderate respiratory distress. Patient is on high flow oxygen and nonrebreather mask, and O2 saturation is in the high 80s and low 90s. Head: Atraumatic, normocephalic. HEENT:[Neck is supple.] [No neck masses.] [No thyromegaly.] [No JVD.] Chest: [Symmetrical chest expansion, crackles at the bases bilaterally. Cardiac Exam: [Normal S1 and S2, no S3 gallop, no murmur.] Abdomen: [Soft, nontender, no megaly, no rebound, no guarding, normal bowel sounds.] Extremities: [No clubbing, no edema, no cyanosis.] Neurological Exam: [No focal neurologic deficit.] Alert and oriented 3. Psychiatric: Normal mood affect and normal mental status examination. Skin: No rashes. Musculoskeletal: No deformities and no limitation in range of motion. Results - Laboratory Findings CBC and BMP: 10/03/20 07:23 10/03/20 08:27 PT/INR, D-dimer PT 10.3 sec (9.0-12.0) 10/02/20 14:48 INR 1.0 (<1.2) 10/02/20 14:48 D-Dimer 0.98 mg/L FEU (<0.60) H 10/03/20 08:27 Abnormal lab findings: Abnormal Labs 10/02/20 10/02/20 10/02/20 14:48 14:48 14:48 Lymphocytes # 0.5 L APTT D-Dimer 1.77 H Sodium 132 L Carbon Dioxide 19 L BUN 25 H Glucose 131 H POC Glucose (mg/dL) Calcium 7.8 L Magnesium AST 122 H ALT 47 H Lactate Dehydrogenase 2894 H C-Reactive Protein 68.2 H Total Protein Albumin 10/02/20 10/03/20 10/03/20 22:34 07:23 08:27 Lymphocytes # 0.4 L APTT 36.0 H D-Dimer Sodium 136 L Carbon Dioxide BUN 26 H Glucose 135 H POC Glucose (mg/dL) Calcium 7.8 L Magnesium 2.4 H AST 114 H ALT 49 H Lactate Dehydrogenase 3596 H C-Reactive Protein 76.8 H Total Protein 6.0 L Albumin 3.3 L 10/03/20 10/03/20 08:27 11:01 Lymphocytes # APTT 47.5 H D-Dimer 0.98 H Sodium Carbon Dioxide BUN Glucose POC Glucose (mg/dL) 125 H Calcium Magnesium AST ALT Lactate Dehydrogenase C-Reactive Protein Total Protein Albumin - Diagnostic Findings Chest x-ray: image reviewed (As noted in HPI.) Assessment and Plan Assessment: Impression: Acute hypoxic respiratory failure secondary to acute covid at 19 pneumonitis. Paroxysmal atrial fibrillation Hypovolemic hyponatremia Morbid obesity with BMI of 42.8. Recommendation: Patient was seen and evaluated on the cardiac floor, and I recommended immediate transfer to ICU. Continue Decadron. Continue multivitamins including zinc and vitamin C and vitamin D. Continue supportive care measures. Continue Lovenox or heparin for now since the patient presented with A. fib RVR. Patient is out of the window for REM. Will recommend at least 1 unit of convalescent plasma Will recommend 800 mg of actemra GI and DVT prophylaxis. Will titrate oxygen accordingly. Monitor liver enzymes. Prognosis is definitely guarded at this point. If the patient deteriorates any further, then she will require intubation mechanical ventilation. Time with Patient: Greater than 30
[2020-10-03] MEDS: HEPARIN SOD,PORK IN 0.45% NACL 25,000 UNIT in 0.45% NACL 1 250ML.BAG IV SCH (19:11)
[2020-10-03 19:58] LABS: Glucose,Whole Blood 142 mg/dL (75-99)
[2020-10-03] MEDS ORDERED: ALBUTEROL NEBULIZED 2.5 MG/3 ML INHALATION PRN (20:48)
[2020-10-03] MEDS ORDERED: ALBUTEROL NEBULIZED 2.5 MG/3 ML INHALATION SCH (20:48)
[2020-10-03 23:05] LABS: Glucose,Whole Blood 143 mg/dL (75-99)
[2020-10-03] MEDS ORDERED: ALBUTEROL HFA INHALER INHALATION PRN (23:19)
[2020-10-04 00:06] LABS: Glucose,Whole Blood 133 mg/dL (75-99)
[2020-10-04] MEDS: ALBUTEROL HFA INHALER INHALATION SCH ×6 (00:32→21:45)
[2020-10-04 04:27] LABS: HCT 37.3 % (34.0-46.0); HGB 12.8 gm/dL (11.4-16.0); MCH 29.2 pg (25.0-35.0); MCHC 34.3 g/dL (31.0-37.0); MCV 84.9 fL (80.0-100.0); Mean Platelet Volume 7.2; Platelet Count 192 k/uL (150-450); RBC 4.39 m/uL (3.80-5.40); RDW 13.5 % (11.5-15.5); WBC 3.7 k/uL (3.8-10.6)
[2020-10-04 04:53] LABS: D-Dimer 0.73 mg/L FEU (<0.60); Partial Thromboplastin Time 52.2 sec (22.0-30.0)
[2020-10-04 05:36] LABS: Albumin 3.2 g/dL (3.5-5.0); Calcium 7.7 mg/dL (8.4-10.2); Potassium 4.3 mmol/L (3.5-5.1); Total Bilirubin 0.5 mg/dL (0.2-1.3); Total Protein 5.8 g/dL (6.3-8.2)
[2020-10-04 05:50] LABS: Glucose,Whole Blood 119 mg/dL (75-99)
[2020-10-04 06:12] LABS: C Reactive Protein 74.9 mg/L (<10.0)
--- NOTE | 2020-10-04 07:22 | XR ---
EXAMINATION TYPE: XR chest 1V portable DATE OF EXAM: 10/04/2020 COMPARISON: 10/03/2020 HISTORY: Covid pneumonia. TECHNIQUE: Single frontal view of the chest is obtained. FINDINGS: There is redemonstration of bilateral diffuse moderate opacities predominantly in the mid to lower lungs. There is interval mild confluence appears of the opacities, compared to the prior brionna dy. No pleural effusion, or pneumothorax seen. The cardiac silhouette size is within normal limits. The osseous structures are intact. IMPRESSION: Ongoing diffuse opacities as above.
[2020-10-04] MEDS: DEXAMETHASONE SOD PHOSPHATE 10 MG/ML 1 ML VIAL IV SCH (09:05)
[2020-10-04] MEDS: ZINC SULFATE 220 MG CAP PO SCH (09:05)
[2020-10-04] MEDS: METOPROLOL TARTRATE 25 MG TAB PO SCH ×2 (09:05→20:16)
[2020-10-04] MEDS: FAMOTIDINE 20 MG TAB PO SCH (09:05)
[2020-10-04] MEDS: CHOLECALCIFEROL 25 MCG (1000 IU) TABLET PO SCH (09:05)
[2020-10-04] MEDS: ASCORBIC ACID 500 MG TAB PO SCH (09:05)
--- NOTE | 2020-10-04 11:14 | P.PN ---
Subjective Progress Note Date: 10/04/20 Principal diagnosis: Shortness of breath Patient is a 60-year-old female with no known past medical history who presented to the ER secondary to shortness of breath and cough. She was diagnosed with COVID 19 on 09/23/20. In the ER she was satting 85% on room air and was found to be in A. fib with RVR and heart rates 120 to 130. Initial labs showed d-dimer of 1.77, lymphocytes 0.5, sodium 132, carbon dioxide 19, BUN 25, AST 122, ALT 47, LDH 2894, and CRP to exceed 8.2. She was admitted and was started on Decadron. She was outside of the window for Remdesivir. She was started on a Cardizem drip as well as metoprolol orally for her A. fib. She was also started on a heparin drip. She's given fluids for her hyponatremia. Pulmonary was consulted. She was requiring a nonrebreather on admission and overnight on 10/03 she was requiring maximal therapy through an air follow along with her nonrebreather to maintain low normal O2 sats. She converted to normal sinus rhythm and her Cardizem drip was stopped. Cardiology was consulted for her A. fib. She was subsequently transferred to the ICU. She had reported some leg pain and venous Dopplers were negative in bilateral lower extremities heparin drip was stopped and she had converted to normal sinus mechanism and she was subsequently started on prophylactic Lovenox. Echocardiogram showed ejection fraction 55-60% with moderate LVH. She was unable to tolerated AIRVO and was started on BiPap. Patient seen and examined at bedside. She reports shortness of breath, headache, no nausea or vomiting, no diarrhea, extreme fatigue. General: Ill appearing, moderate distress appears at stated age Derm: warm, dry Head: atraumatic, normocephalic, symmetric Eyes: EOMI, no lid lag, anicteric sclera Mouth: no lip lesion, mucus membranes moist Cardiovascular: S1S2 reg, no murmur, positive posterior tibial pulse bilateral, Lungs:Course bs bilateral, 3 word conversational dyspnea, sofya sternal retractions Abdominal: soft, nontender to palpation, no guarding, no appreciable organomegaly Ext: no gross muscle atrophy, no edema, no contractures Neuro: CN II-XI grossly intact, no focal neuro deficits Psych: Alert, oriented, appropriate affect COVID 19 pneumonia with acute hypoxic respiratory failure -Continue with Decadron -Zinc, vitamin C, vitamin D - Convolescent Plasma 10/03, Toci X 1 on 10/03 - supportive care - scheduled and prn BD - Lovenox - Follow inflammatory markers Paroxysmal atrial fibrillation, currently in normal sinus rhythm -Trigger is likely pulmonary disease with her COVID -Continue with metoprolol -Cardiology recommendations appreciated -Echocardiogram with ejection fraction 55-60%, moderate LVH Transaminitis likely secondary to illness -Follow liver enzymes -If remains elevated after Covid improves consider cholesterol level and liver ultrasound to rule out fatty liver disease Hyponatremia secondary to dehydration -Improving -Continue with IV fluids Morbid obesity with BMI 42.8 -Structured outpatient weight loss DVT prophylaxis: Lovenox Discussed with: Patient, nursing Anticipated discharge: undetermined Anticipated discharge place: undetermined A total of 35 minutes was spent on the care of this complex patient more than 50% of the time was spent in counseling and care coordination. Objective - Vital Signs Vital signs: Vital Signs Temp 99.2 F 10/03/20 20:00 Pulse 65 10/04/20 05:00 Resp 29 H 10/04/20 05:00 BP 122/75 10/04/20 05:00 Pulse Ox 89 L 10/04/20 05:00 Intake & Output 10/03/20 10/04/20 10/04/20 18:59 06:59 18:59 Intake Total 371 295 Output Total 100 700 Balance 271 -405 Weight 126.9 kg Intake: IV 60 220 0.9 60 220 Oral 0 75 Blood Product 311 Ffp Convalescent Plasma 311 Cpd Unit [id number] Output: Urine 100 700 Other: Voiding Method Bedpan - Labs CBC & Chem 7: 10/04/20 03:58 10/04/20 03:58 Labs: Abnormal Lab Results - Last 24 Hours (Table) 10/03/20 10/03/20 10/04/20 Range/Units 19:55 23:03 00:05 WBC (3.8-10.6) k/uL APTT (22.0-30.0) sec D-Dimer (<0.60) mg/L FEU Sodium (137-145) mmol/L BUN (7-17) mg/dL Glucose (74-99) mg/dL POC Glucose (mg/dL) 142 H 143 H 133 H (75-99) mg/dL Calcium (8.4-10.2) mg/dL AST (14-36) U/L ALT (4-34) U/L Lactate Dehydrogenase (313-618) U/L C-Reactive Protein (<10.0) mg/L Total Protein (6.3-8.2) g/dL Albumin (3.5-5.0) g/dL 10/04/20 10/04/20 10/04/20 Range/Units 03:58 03:58 03:58 WBC 3.7 L (3.8-10.6) k/uL APTT 52.2 H (22.0-30.0) sec D-Dimer 0.73 H (<0.60) mg/L FEU Sodium 136 L (137-145) mmol/L BUN 32 H (7-17) mg/dL Glucose 139 H (74-99) mg/dL POC Glucose (mg/dL) (75-99) mg/dL Calcium 7.7 L (8.4-10.2) mg/dL AST 90 H (14-36) U/L ALT 39 H (4-34) U/L Lactate Dehydrogenase 3606 H (313-618) U/L C-Reactive Protein 74.9 H (<10.0) mg/L Total Protein 5.8 L (6.3-8.2) g/dL Albumin 3.2 L (3.5-5.0) g/dL 10/04/20 Range/Units 05:48 WBC (3.8-10.6) k/uL APTT (22.0-30.0) sec D-Dimer (<0.60) mg/L FEU Sodium (137-145) mmol/L BUN (7-17) mg/dL Glucose (74-99) mg/dL POC Glucose (mg/dL) 119 H (75-99) mg/dL Calcium (8.4-10.2) mg/dL AST (14-36) U/L ALT (4-34) U/L Lactate Dehydrogenase (313-618) U/L C-Reactive Protein (<10.0) mg/L Total Protein (6.3-8.2) g/dL Albumin (3.5-5.0) g/dL Microbiology - Last 24 Hours (Table) 10/02/20 15:15 Blood Culture - Preliminary Blood No Growth after 24 hours 10/02/20 14:48 Blood Culture - Preliminary Blood No Growth after 24 hours
--- NOTE | 2020-10-04 11:40 | P.PN ---
Subjective Progress Note Date: 10/04/20 This is a 60-year-old female with a past medical history significant for former nicotine dependence. 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 We have been asked to see the patient in consultation for Ramona medel with RVR. Patient presented to the hospital with a chief complaint of shortness of breath. Patient was diagnosed with Covid on 09/23/2020. Patient was admitted to the hospital for further evaluation. Patient was found to be in SVT and received 2 doses of adenosine. Repeat EKG received afib with RVR. Patient was started on IV cardizem and IV heparin. Patient has since converted to sinus mechanism. IV Cardizem was discontinued this morning. Patient has been started on metoprolol 25 mg twice a day. Patient was initially on 15L NRB mask and also Airvo. She was transferred to ICU for further monitoring. 10/04/2020 The patient is maintaining sinus mechanism. She is currently on Lovenox for DVT prophylaxis. She was not tolerating Airvo and is currently on BiPAP. A cardiogram with Doppler study showed a normal LV systolic function with ejection fraction between 55-60% with trace MR and trace TR. Objective - Vital Signs Vital signs: Vital Signs Temp 99.2 F 10/03/20 20:00 Pulse 65 10/04/20 05:00 Resp 29 H 10/04/20 05:00 BP 122/75 10/04/20 05:00 Pulse Ox 89 L 10/04/20 05:00 Intake & Output 10/03/20 10/04/20 10/04/20 18:59 06:59 18:59 Intake Total 371 295 Output Total 100 700 Balance 271 -405 Weight 126.9 kg Intake: IV 60 220 0.9 60 220 Oral 0 75 Blood Product 311 Ffp Convalescent Plasma 311 Cpd Unit [id number] Output: Urine 100 700 Other: Voiding Method Bedpan - Exam Thorough physical exam not completed secondary to Covid19 infection - Labs CBC & Chem 7: 10/04/20 03:58 10/04/20 03:58 Labs: Abnormal Lab Results - Last 24 Hours (Table) 10/03/20 10/03/20 10/04/20 Range/Units 19:55 23:03 00:05 WBC (3.8-10.6) k/uL APTT (22.0-30.0) sec D-Dimer (<0.60) mg/L FEU Sodium (137-145) mmol/L BUN (7-17) mg/dL Glucose (74-99) mg/dL POC Glucose (mg/dL) 142 H 143 H 133 H (75-99) mg/dL Calcium (8.4-10.2) mg/dL AST (14-36) U/L ALT (4-34) U/L Lactate Dehydrogenase (313-618) U/L C-Reactive Protein (<10.0) mg/L Total Protein (6.3-8.2) g/dL Albumin (3.5-5.0) g/dL 10/04/20 10/04/20 10/04/20 Range/Units 03:58 03:58 03:58 WBC 3.7 L (3.8-10.6) k/uL APTT 52.2 H (22.0-30.0) sec D-Dimer 0.73 H (<0.60) mg/L FEU Sodium 136 L (137-145) mmol/L BUN 32 H (7-17) mg/dL Glucose 139 H (74-99) mg/dL POC Glucose (mg/dL) (75-99) mg/dL Calcium 7.7 L (8.4-10.2) mg/dL AST 90 H (14-36) U/L ALT 39 H (4-34) U/L Lactate Dehydrogenase 3606 H (313-618) U/L C-Reactive Protein 74.9 H (<10.0) mg/L Total Protein 5.8 L (6.3-8.2) g/dL Albumin 3.2 L (3.5-5.0) g/dL 10/04/20 Range/Units 05:48 WBC (3.8-10.6) k/uL APTT (22.0-30.0) sec D-Dimer (<0.60) mg/L FEU Sodium (137-145) mmol/L BUN (7-17) mg/dL Glucose (74-99) mg/dL POC Glucose (mg/dL) 119 H (75-99) mg/dL Calcium (8.4-10.2) mg/dL AST (14-36) U/L ALT (4-34) U/L Lactate Dehydrogenase (313-618) U/L C-Reactive Protein (<10.0) mg/L Total Protein (6.3-8.2) g/dL Albumin (3.5-5.0) g/dL Microbiology - Last 24 Hours (Table) 10/02/20 15:15 Blood Culture - Preliminary Blood No Growth after 24 hours 10/02/20 14:48 Blood Culture - Preliminary Blood No Growth after 24 hours Assessment and Plan Assessment: Covid 19 Acute hypoxic respiratory failure Paroxysmal supraventricular tachycardia New-onset paroxysmal atrial fibrillation with RVR Former nicotine dependence Plan: From defensive line coach perspective medications were reviewed with the same. Continue Lovenox for DVT prophylaxis. Paroxysmal atrial fibrillation was very limited a nd likely secondary to underlying infection. Patient likely will not require long-term anticoagulation. We will continue to follow the patient for further recommendations accordingly. The above dictated assessment and findings were discussed with signing physician. The impression and plan of care have been directed as dictated. Lis Mercedes, Nurse Practitioner, acting as scribe for signing physician.
--- NOTE | 2020-10-04 12:16 | P.PN ---
Subjective Progress Note Date: 10/04/20 Principal diagnosis: Acute hypoxic respiratory failure secondary to acute covid 19 pneumonitis. This is a 60-year-old female with no previous significant medical history, on 09/23/20, she was diagnosed with acute covid 19 infection. Patient took [id number] medications. And yesterday she presented to the ER and she was found in atrial fibrillation with RVR. And her chest x-ray showed diffuse interstitial pneumonitis. Patient was found to have elevated inflammatory mar kers with LDH of 2894, and C-reactive protein of 8.2. Considering the patient had over 1 week of symptoms, she was felt to be outside the window for REM. Her atrial fibrillation and RVR was treated with Cardizem and later metoprolol orally. She was also placed on heparin. Chest x-ray was quite concerning. Patient required placement on a nonrebreather mask. Later placed on high flow airvo with a non-rebreather mask, and her O2 saturations remained marginal around 88-93%. I saw this patient this morning, and I recommended immediate transfer to the ICU. Chest x-ray was reviewed and it is consistent with acute Covid 19 pneumonitis. Her d-dimer was 0.98.CBC was relatively normal. LDH is up to 3596. And C-reactive protein is up to 76.8 after evaluating the patient, I recommended convalescent plasma. I also recommended actemra. Patient was reevaluated today on 10/04/2020, patient remains in the ICU, she is presently on BiPAP with IPAP of 14 EPAP of 6, and FiO2 is 100%. We ordered actemra and convalescent plasma on this patient. And I believe she received both. Patient was out of the window for REM. Remains on the Covid 19 cocktail. CBC is relatively normal d-dimer 0.73 lites are normal her inflammatory markers are high with LDH of 09/05/2005 and C-reactive protein of 75. Clinically the patient is about the same, not much change from yesterday, she has intermittent cough, and shortness of breath with any activity. Her pulmonary status is marginal at best. Objective - Vital Signs Vital signs: Vital Signs Temp 98.2 F 10/04/20 08:00 Pulse 71 10/04/20 11:00 Resp 28 H 10/04/20 11:00 BP 139/81 10/04/20 11:00 Pulse Ox 89 L 10/04/20 11:00 Intake & Output 10/03/20 10/04/20 10/04/20 18:59 06:59 18:59 Intake Total 371 295 340 Output Total 100 700 Balance 271 -405 340 Weight 126.9 kg Intake: IV 60 220 40 0.9 60 220 40 Oral 0 75 300 Blood Product 311 Ffp Convalescent Plasma 311 Cpd Unit [id number] Output: Urine 100 700 Other: Voiding Method Bedpan - Exam Physical Exam: Revealed 60-year-old female obese, in mild respiratory distress, on BiPAP. Head: Atraumatic, normocephalic. HEENT:[Neck is supple.] [No neck masses.] [No thyromegaly.] [No JVD.] Chest: [Symmetrical chest expansion, crackles at the bases bilaterally. Cardiac Exam: [Normal S1 and S2, no S3 gallop, no murmur.] Abdomen: [Soft, nontender, no megaly, no rebound, no guarding, normal bowel sounds.] Extremities: [No clubbing, no edema, no cyanosis.] Neurological Exam: [No focal neurologic deficit.] Alert and oriented 3. Psychiatric: Normal mood affect and normal mental status examination. Skin: No rashes. Musculoskeletal: No deformities and no limitation in range of motion. - Labs CBC & Chem 7: 10/04/20 03:58 10/04/20 03:58 Labs: Abnormal Lab Results - Last 24 Hours (Table) 10/03/20 10/03/20 10/04/20 Range/Units 19:55 23:03 00:05 WBC (3.8-10.6) k/uL APTT (22.0-30.0) sec D-Dimer (<0.60) mg/L FEU Sodium (137-145) mmol/L BUN (7-17) mg/dL Glucose (74-99) mg/dL POC Glucose (mg/dL) 142 H 143 H 133 H (75-99) mg/dL Calcium (8.4-10.2) mg/dL AST (14-36) U/L ALT (4-34) U/L Lactate Dehydrogenase (313-618) U/L C-Reactive Protein (<10.0) mg/L Total Protein (6.3-8.2) g/dL Albumin (3.5-5.0) g/dL 10/04/20 10/04/20 10/04/20 Range/Units 03:58 03:58 03:58 WBC 3.7 L (3.8-10.6) k/uL APTT 52.2 H (22.0-30.0) sec D-Dimer 0.73 H (<0.60) mg/L FEU Sodium 136 L (137-145) mmol/L BUN 32 H (7-17) mg/dL Glucose 139 H (74-99) mg/dL POC Glucose (mg/dL) (75-99) mg/dL Calcium 7.7 L (8.4-10.2) mg/dL AST 90 H (14-36) U/L ALT 39 H (4-34) U/L Lactate Dehydrogenase 3606 H (313-618) U/L C-Reactive Protein 74.9 H (<10.0) mg/L Total Protein 5.8 L (6.3-8.2) g/dL Albumin 3.2 L (3.5-5.0) g/dL 10/04/20 Range/Units 05:48 WBC (3.8-10.6) k/uL APTT (22.0-30.0) sec D-Dimer (<0.60) mg/L FEU Sodium (137-145) mmol/L BUN (7-17) mg/dL Glucose (74-99) mg/dL POC Glucose (mg/dL) 119 H (75-99) mg/dL Calcium (8.4-10.2) mg/dL AST (14-36) U/L ALT (4-34) U/L Lactate Dehydrogenase (313-618) U/L C-Reactive Protein (<10.0) mg/L Total Protein (6.3-8.2) g/dL Albumin (3.5-5.0) g/dL Microbiology - Last 24 Hours (Table) 10/02/20 15:15 Blood Culture - Preliminary Blood No Growth after 24 hours 10/02/20 14:48 Blood Culture - Preliminary Blood No Growth after 24 hours Assessment and Plan Assessment: Impression: Acute hypoxic respiratory failure secondary to acute covid at 19 pneumonitis. Paroxysmal atrial fibrillation Hypovolemic hyponatremia Morbid obesity with BMI of 42.8. Recommendation: Continue BiPAP and titrate FiO2 accordingly. Continue Decadron. Continue multivitamins including zinc and vitamin C and vitamin D. Continue Lovenox or heparin for now since the patient presented with A. fib RVR. Patient is out of the window for REM. Received 1 unit of convalescent plasma Received 800 mg of actemra GI and DVT prophylaxis. Monitor liver enzymes. Prognosis is definitely guarded at this point. We'll continue to monitor in the ICU Time with Patient: Less than 30
[2020-10-04 12:26] LABS: Glucose,Whole Blood 114 mg/dL (75-99)
[2020-10-04] MEDS: SODIUM CHLORIDE 0.9% 1,000 ML IV SCH (14:44)
[2020-10-04] MEDS: ENOXAPARIN 40 MG/0.4 ML SYRINGE SQ SCH (15:22)
[2020-10-04] MEDS: LORATADINE 10 MG TAB PO SCH (15:22)
[2020-10-04] MEDS: FLUTICASONE 50MCG/SPRAY NASAL 16GM EA NOSTRIL SCH (15:23)
[2020-10-04 17:45] LABS: Glucose,Whole Blood 125 mg/dL (75-99)
[2020-10-04 23:36] LABS: Glucose,Whole Blood 122 mg/dL (75-99)
[2020-10-05] MEDS: ALBUTEROL HFA INHALER INHALATION SCH ×6 (01:04→19:22)
[2020-10-05 05:45] LABS: ALT 41 U/L (4-34); AST 79 U/L (14-36); African American GFR (CKD) >90 (>60 ml/min/1.73 sqM); Albumin 3.3 g/dL (3.5-5.0); Alkaline Phosphatase 98 U/L (38-126); Anion Gap 0 mmol/L; Blood Urea Nitrogen 32 mg/dL (7-17); C Reactive Protein 45.6 mg/L (<10.0); Calcium 7.8 mg/dL (8.4-10.2); Carbon Dioxide 33 mmol/L (22-30); Chloride 104 mmol/L (98-107); Creatine Kinase 999 U/L (30-135); Glucose 120 mg/dL (74-99); Non-African American GFR(CKD) 79 (>60 ml/min/1.73 sqM); Potassium 4.9 mmol/L (3.5-5.1); Sodium 137 mmol/L (137-145); Total Bilirubin 0.5 mg/dL (0.2-1.3)
[2020-10-05 06:00] LABS: HCT 37.9 % (34.0-46.0); HGB 12.9 gm/dL (11.4-16.0); MCH 29.1 pg (25.0-35.0); MCV 85.6 fL (80.0-100.0); Mean Platelet Volume 7.7; Platelet Count 260 k/uL (150-450); RBC 4.42 m/uL (3.80-5.40); RDW 13.7 % (11.5-15.5); WBC 5.3 k/uL (3.8-10.6)
[2020-10-05 07:11] LABS: Band Neutrophils % 3 %; Lymphocytes # (M) 0.37 k/uL (1.0-4.8); Monocytes # (M) 0.21 k/uL (0-1.0); Neutrophils % (M) 87 %; Nucleated Red Blood Cells 0 /100 WBC (0-0); Total Cells Counted 200
[2020-10-05 07:12] LABS: LDH 3977 U/L (313-618)
--- NOTE | 2020-10-05 07:40 | P.PN ---
Subjective Progress Note Date: 10/05/20 Principal diagnosis: Cardiac arrhythmia This is a 60-year-old gentleman who was admitted to the hospital with COVID-19 infection and we consulted to see the patient for paroxysmal supraventricular tachycardia and also brief episode of atrial fibrillation with RVR. The patient has been maintaining normal sinus mechanism. The patient has been hemodynamically stable. Currently he is on metoprolol. An echocardiogram was performed and showed normal left ventricular systolic function without any significant valvular abnormalities. At this point we'll continue the current co dical regimen and follow-up with the patient. Objective - Vital Signs Vital signs: Vital Signs Temp 97.9 F 10/05/20 04:00 Pulse 73 10/05/20 07:00 Resp 33 H 10/05/20 07:00 BP 122/69 10/05/20 07:00 Pulse Ox 92 L 10/05/20 07:00 Intake & Output 10/04/20 10/05/20 10/05/20 18:59 06:59 18:59 Intake Total 610 220 10 Output Total 1200 300 Balance -590 -80 10 Weight 126 kg Intake: IV 110 120 10 0.9 110 120 10 Oral 500 100 Output: Urine 1200 300 Other: Voiding Method Bedpan Bedpan # Voids 1 - Constitutional General appearance: Present: no acute distress - Labs CBC & Chem 7: 10/05/20 04:20 10/05/20 04:20 Labs: Abnormal Lab Results - Last 24 Hours (Table) 10/04/20 10/04/20 10/04/20 Range/Units 12:25 17:34 23:34 Lymphocytes # (Manual) (1.0-4.8) k/uL D-Dimer (<0.60) mg/L FEU Carbon Dioxide (22-30) mmol/L BUN (7-17) mg/dL Glucose (74-99) mg/dL POC Glucose (mg/dL) 114 H 125 H 122 H (75-99) mg/dL Calcium (8.4-10.2) mg/dL AST (14-36) U/L ALT (4-34) U/L Lactate Dehydrogenase (313-618) U/L Creatine Kinase (30-135) U/L C-Reactive Protein (<10.0) mg/L Total Protein (6.3-8.2) g/dL Albumin (3.5-5.0) g/dL 10/05/20 10/05/20 10/05/20 Range/Units 04:20 04:20 04:20 Lymphocytes # (Manual) 0.37 L (1.0-4.8) k/uL D-Dimer 3.65 H (<0.60) mg/L FEU Carbon Dioxide 33 H (22-30) mmol/L BUN 32 H (7-17) mg/dL Glucose 120 H (74-99) mg/dL POC Glucose (mg/dL) (75-99) mg/dL Calcium 7.8 L (8.4-10.2) mg/dL AST 79 H (14-36) U/L ALT 41 H (4-34) U/L Lactate Dehydrogenase 3977 H (313-618) U/L Creatine Kinase 999 H (30-135) U/L C-Reactive Protein 45.6 H (<10.0) mg/L Total Protein 6.0 L (6.3-8.2) g/dL Albumin 3.3 L (3.5-5.0) g/dL Microbiology - Last 24 Hours (Table) 10/02/20 15:15 Blood Culture - Preliminary Blood No Growth after 48 hours 10/02/20 14:48 Blood Culture - Preliminary Blood No Growth after 48 hours Assessment and Plan Assessment: Assessment #1 COVID-19 infection #2 acute hypoxic respiratory failure #3 paroxysmal atrial fibrillation with only 1 brief episode #4 multiple comorbid conditions Plan #1 continue the current dose of metoprolol #2 consider oral anticoagulation if the patient developed any more episode of atrial fibrillation #3 the echo was reviewed and showed normal LV function #4 follow-up with the patient
[2020-10-05] MEDS ORDERED: ENOXAPARIN 40 MG/0.4 ML SYRINGE SQ SCH (09:00)
[2020-10-05] MEDS: ZINC SULFATE 220 MG CAP PO SCH (09:53)
[2020-10-05] MEDS: FAMOTIDINE 20 MG TAB PO SCH ×2 (09:53→21:18)
[2020-10-05] MEDS: LORATADINE 10 MG TAB PO SCH (09:53)
[2020-10-05] MEDS: ENOXAPARIN 40 MG/0.4 ML SYRINGE SQ SCH (09:54)
[2020-10-05] MEDS: CHOLECALCIFEROL 25 MCG (1000 IU) TABLET PO SCH (09:54)
[2020-10-05] MEDS: ASCORBIC ACID 500 MG TAB PO SCH (09:54)
[2020-10-05] MEDS: METOPROLOL TARTRATE 25 MG TAB PO SCH ×2 (09:54→19:33)
[2020-10-05] MEDS: DEXAMETHASONE SOD PHOSPHATE 10 MG/ML 1 ML VIAL IV SCH (09:54)
[2020-10-05] MEDS: FLUTICASONE 50MCG/SPRAY NASAL 16GM EA NOSTRIL SCH (09:55)
--- NOTE | 2020-10-05 10:04 | XR ---
EXAMINATION TYPE: XR chest 1V portable DATE OF EXAM: 10/05/2020 COMPARISON: 10/04/2020 HISTORY: Shortness of breath TECHNIQUE: Single frontal view of the chest is obtained. FINDINGS: A diffuse bilateral areas of mixed alveolar and interstitial infiltrate. Biapical pleural thickening. No sizable effusion. Heart size stable. IMPRESSION: Diffuse bilateral infiltrates are stable.
[2020-10-05] MEDS: SODIUM CHLORIDE 0.9% 1,000 ML IV SCH (10:56)
[2020-10-05 12:03] LABS: Glucose,Whole Blood 106 mg/dL (75-99)
[2020-10-05 13:18] LABS: Ferritin 1414.5 ng/mL (10.0-291.0)
--- NOTE | 2020-10-05 13:58 | P.PN ---
Subjective Progress Note Date: 10/05/20 Principal diagnosis: Acute hypoxic respiratory failure secondary to acute COVID 19 pneumonitis This is a 60-year-old female with no previous significant medical history, on 09/23/20, she was diagnosed with acute covid 19 infection. Patient took [id number] medications. And yesterday she presented to the ER and she was found in atrial fibrillation with RVR. And her chest x-ray showed diffuse interstitial pneumonitis. Patient was found to have elevated inflammatory mar kers with LDH of 2894, and C-reactive protein of 8.2. Considering the patient had over 1 week of symptoms, she was felt to be outside the window for REM. Her atrial fibrillation and RVR was treated with Cardizem and later metoprolol orally. She was also placed on heparin. Chest x-ray was quite concerning. Patient required placement on a nonrebreather mask. Later placed on high flow airvo with a non-rebreather mask, and her O2 saturations remained marginal around 88-93%. I saw this patient this morning, and I recommended immediate transfer to the ICU. Chest x-ray was reviewed and it is consistent with acute Covid 19 pneumonitis. Her d-dimer was 0.98.CBC was relatively normal. LDH is up to 3596. And C-reactive protein is up to 76.8 after evaluating the patient, I recommended convalescent plasma. I also recommended actemra. Patient was reevaluated today on 10/04/2020, patient remains in the ICU, she is presently on BiPAP with IPAP of 14 EPAP of 6, and FiO2 is 100%. We ordered actemra and convalescent plasma on this patient. And I believe she received both. Patient was out of the window for REM. Remains on the Covid 19 cocktail. CBC is relatively normal d-dimer 0.73 lites are normal her inflammatory markers are high with LDH of 09/05/2005 and C-reactive protein of 75. Clinically the patient is about the same, not much change from yesterday, she has intermittent cough, and shortness of breath with any activity. Her pulmonary status is marginal at best. On 10/05/2020 and patient seen in follow-up in the intensive care unit. She remains on BiPAP support with pressures of 14/60 FiO2 of 100% with a pulse ox between 90-97%, afebrile, a bit hypertensive, with systolic between 160-180 and diastolic in 90-100. Patient is status post Tocilizumab 800 mg IV piggyback infusion on 10/03/2020 and she has received 1 unit of convalescent plasma on 10/03/2020. Continues on Decadron 6 mg daily, Lovenox 40 mg daily, Pepcid, IV fluids 0.9 normal saline infusing at 25 ML per hour. Today's labs have been reviewed, d-dimer 3.6, B1 is 32, creatinine 0.81, CO2 is 33, the rest of the electrolytes were unremarkable, ferritin level is 1414, AST is 79, which has improved, and ALT is 41 which is relatively stable, up slightly from 39, but overall improving, LDH remains significantly elevated at 3977, CRP is 45.6. Chest x-ray shows diffuse bilateral infiltrates. Objective - Vital Signs Vital signs: Vital Signs Temp 98.1 F 10/05/20 12:00 Pulse 86 10/05/20 13:00 Resp 28 H 10/05/20 13:00 BP 183/113 10/05/20 13:00 Pulse Ox 90 L 10/05/20 13:00 Intake & Output 10/04/20 10/05/20 10/05/20 18:59 06:59 18:59 Intake Total 610 220 60 Output Total 1200 300 200 Balance -590 -80 -140 Weight 126 kg Intake: IV 110 120 60 0.9 110 120 60 Oral 500 100 Output: Urine 1200 300 200 Other: Voiding Method Bedpan Bedpan Bedpan # Voids 1 - Exam GENERAL EXAM: Alert, very pleasant, 60-year-old white female, on BiPAP support, with pressures of 14 and 6 and FiO2 100% comfortable in no apparent distress. HEAD: Normocephalic/atraumatic. EYES: Normal reaction of pupils, equal size. Conjunctiva pink, sclera white. NOSE: Clear with pink turbinates. THROAT: No erythema or exudates. NECK: No masses, no JVD, no thyroid enlargement, no adenopathy. CHEST: No chest wall deformity. Symmetrical expansion. LUNGS: Equal air entry with diffuse crackles but no wheeze, rhonchi or dullness. CVS: Regular rate and rhythm, normal S1 and S2, no gallops, no murmurs, no rubs ABDOMEN: Soft, nontender. No hepatosplenomegaly, normal bowel sounds, no guarding or rigidity. EXTREMITIES: No clubbing, no edema, no cyanosis, 2+ pulses and upper and lower extremities. MUSCULOSKELETAL: Muscle strength and tone normal. SPINE: No scoliosis or deformity SKIN: No rashes CENTRAL NERVOUS SYSTEM: Alert and oriented -3. No focal deficits, tone is normal in all 4 extremities. PSYCHIATRIC: Alert and oriented -3. Appropriate affect. Intact judgment and insight. - Labs CBC & Chem 7: 10/05/20 04:10/05/20 04:20 Labs: Abnormal Lab Results - Last 24 Hours (Table) 10/04/20 10/04/20 10/05/20 Range/Units 17:34 23:34 04:20 Lymphocytes # (Manual) 0.37 L (1.0-4.8) k/uL D-Dimer (<0.60) mg/L FEU Carbon Dioxide (22-30) mmol/L BUN (7-17) mg/dL Glucose (74-99) mg/dL POC Glucose (mg/dL) 125 H 122 H (75-99) mg/dL Calcium (8.4-10.2) mg/dL Ferritin (10.0-291.0) ng/mL AST (14-36) U/L ALT (4-34) U/L Lactate Dehydrogenase (313-618) U/L Creatine Kinase (30-135) U/L C-Reactive Protein (<10.0) mg/L Total Protein (6.3-8.2) g/dL Albumin (3.5-5.0) g/dL 10/05/20 10/05/20 10/05/20 Range/Units 04:20 04:20 12:01 Lymphocytes # (Manual) (1.0-4.8) k/uL D-Dimer 3.65 H (<0.60) mg/L FEU Carbon Dioxide 33 H (22-30) mmol/L BUN 32 H (7-17) mg/dL Glucose 120 H (74-99) mg/dL POC Glucose (mg/dL) 106 H (75-99) mg/dL Calcium 7.8 L (8.4-10.2) mg/dL Ferritin 1414.5 H (10.0-291.0) ng/mL AST 79 H (14-36) U/L ALT 41 H (4-34) U/L Lactate Dehydrogenase 3977 H (313-618) U/L Creatine Kinase 999 H (30-135) U/L C-Reactive Protein 45.6 H (<10.0) mg/L Total Protein 6.0 L (6.3-8.2) g/dL Albumin 3.3 L (3.5-5.0) g/dL Microbiology - Last 24 Hours (Table) 10/02/20 15:15 Blood Culture - Preliminary Blood No Growth after 48 hours 10/02/20 14:48 Blood Culture - Preliminary Blood No Growth after 48 hours Assessment and Plan Plan: assessment: #1. Acute hypoxic respiratory failure secondary to acute COVID 19 related pneumonitis, status post Tocilizumab and 1 unit of convalescent plasma on 10/03/2020, admitted to the ICU on 10/03/2020, remains on high flow oxygen with 15 L per high flow and 100% nonrebreather mask #2. History of paroxysmal atrial fibrillation #3. Hypovolemic hyponatremia, improved with hydration #4. Increased d-dimer, related to acute COVID 19 #5. Increased transaminases related to acute viral pneumonia Plan: Continue with current dose of Decadron, we will increase to Lovenox to 60 mg twice daily, continue to follow d-dimer on a daily basis, continue following inflammatory markers, daily chest x-rays, continue monitoring oxygenation pattern, dyspnea. Patient will remain in the intensive care unit. If tolerates it provide nutritional support in the form of Ensure, we'll continue to follow. Follow clinical course in intensive care unit prognosis is guarded I performed a history & physical examination of the patient and discussed their management with my nurse practitioner, Ena Daly. I reviewed the nurse practitioner's note and agree with the documented findings and plan of care. Lung sounds are positive for diminished breath sounds. The findings and the impression was discussed with the patient. I attest to the documentation by the nurse practitioner. , Time with Patient: Greater than 30
[2020-10-05 17:41] LABS: Glucose,Whole Blood 119 mg/dL (75-99)
--- NOTE | 2020-10-05 20:46 | P.PN ---
Progress Note - Text Progress Note Date: 10/05/20 Presenting complaint Shortness of breath History of presenting complaint Patient is a 60-year-old female, follows with Dr. Herberth Hurd, with no known past medical history who presented to the ER secondary to shortness of breath and cough. She was diagnosed with COVID 19 on 09/23/20. In the ER she was saturating 85% on room air and was found to be in A. fib with RVR and heart rates 120 to 130. Initial labs showed d-dimer of 1.77, lymphocytes 0.5, sodium 132, carbon dioxide 19, BUN 25, AST 122, ALT 47, LDH 2894, and CRP to exceed 8.2. She was admitted and was started on Decadron. She was outside of the window for Remdesivir. She was started on a Cardizem drip as well as metoprolol orally for her A. fib. She was also started on a heparin drip. She's given fluids for her hyponatremia. Pulmonary was consulted. She was requiring a nonrebreather on admission and overnight on 10/03 she was requiring maximal therapy through an air follow along with her nonrebreather to maintain low normal O2 sats. She converted to normal sinus rhythm and her Cardizem drip was stopped. Cardiology was consulted for her A. fib. She was subsequently transferred to the ICU. She had reported some leg pain and venous Dopplers were negative in bilateral lower extremities heparin drip was stopped and she had converted to normal sinus mechanism and she was subsequently started on prophylactic Lovenox. Echocardiogram showed ejection fraction 55-60% with moderate LVH. She was unable to tolerated AIRVO and was started on BiPap. Today: ICU-on BiPAP with a setting of 14/6/100%. Awake. Tired. Telemetry shows sinus rhythm. Minimum oral intake. Review of systems: Was done for constitutional, cardiovascular, GI, pulmonary. relevant finding as above Active Medications Acetaminophen (Acetaminophen Tab 325 Mg Tab) 650 mg PO Q6HR PRN PRN Reason: Mild Pain or Fever > 100.5 Hydrocodone Bitart/Acetaminophen (Hydrocodone/Apap 5-325mg 1 Each Tab) 1 each PO Q6HR PRN PRN Reason: Pain Last Admin: 10/03/20 09:19 Dose: 1 each Documented by: Albuterol Sulfate (Albuterol Hfa Inhaler) 2 puff INHALATION RT-Q4H [facility] Last Admin: 10/05/20 19:22 Dose: 2 puff Documented by: Albuterol Sulfate (Albuterol Hfa Inhaler) 2 puff INHALATION RT-QID PRN PRN Reason: Shortness Of Breath Or Wheezing Ascorbic Acid (Ascorbic Acid 500 Mg Tab) 1,000 mg PO DAILY [facility] Last Admin: 10/05/20 09:54 Dose: 1,000 mg Documented by: Cholecalciferol (Cholecalciferol 25 Mcg (1000 Iu) Tablet) 100 mcg PO DAILY [facility] Last Admin: 10/05/20 09:54 Dose: 100 mcg Documented by: Dexamethasone Sodium Phosphate (Dexamethasone Sod Phosphate 10 Mg/Ml 1 Ml Vial) 6 mg IV DAILY [facility] Last Admin: 10/05/20 09:54 Dose: 6 mg Documented by: Enoxaparin Sodium (Enoxaparin 60 Mg/0.6 Ml Syringe) 60 mg SQ BID [facility] Last Admin: 10/05/20 19:33 Dose: 60 mg Documented by: Famotidine (Famotidine 20 Mg Tab) 40 mg PO DAILY [facility] Last Admin: 10/05/20 09:53 Dose: 40 mg Documented by: Fluticasone Propionate (Fluticasone 50mcg/[place] Nasal 16gm) 2 spray EA NOSTRIL DAILY [facility] Last Admin: 10/05/20 09:55 Dose: Not Given Documented by: Sodium Chloride (Saline 0.9%) 1,000 mls @ 25 mls/hr IV .Q24H [facility] Last Admin: 10/05/20 10:56 Dose: Not Given Documented by: Loratadine (Loratadine 10 Mg Tab) 10 mg PO DAILY [facility] Last Admin: 10/05/20 09:53 Dose: 10 mg Documented by: Metoprolol Tartrate (Metoprolol Tartrate 25 Mg Tab) 25 mg PO BID [facility] Last Admin: 10/05/20 19:33 Dose: 25 mg Documented by: Naloxone HCl (Naloxone 0.4 Mg/Ml 1 Ml Vial) 0.2 mg IV Q2M PRN PRN Reason: Opioid Reversal Ondansetron HCl (Ondansetron 4 Mg/2 Ml Vial) 4 mg IVP Q8HR PRN PRN Reason: Nausea And Vomiting Zinc Sulfate (Zinc Sulfate 220 Mg Cap) 220 mg PO DAILY [facility] Last Admin: 10/05/20 09:53 Dose: 220 mg Documented by: On examination: VITAL SIGNS: 97.7, 75, 34, 145/88, 92% on 100% BiPAP GENERAL APPEARANCE: Laying in bed with BiPAP, tired awake NECK: JVD not raised. Mass not palpable. RESPIRATORY: Respiratory effort increased. NEUROLOGICAL: Cranial nerves grossly intact. Moving all 4 limbs PSYCHIATRY: Alert and oriented x3. Mood and affect tired. Rest of the exam per pulmonary and nursing Investigations: October 05: WBC 5.3 hemoglobin 12.9 platelets 260 d-dimer 3.65 potassium 4.9 creatinine 0.81 CRP 45.6 Chest x-ray film personally reviewed by me-[October 05]: Bilateral infiltrates more so in the lower zone Lower extremity Doppler ultrasound: Negative for DVT 2-D echocardiogram: Concentric LVH, EF 55-60% Admission labs: D-dimer 1.77 CRP 68.2 Assessment and plan COVID 19 pneumonia with acute hypoxic respiratory failure, worsening -Continue with Decadron, Zinc, vitamin C, vitamin D, Lovenox [ Convolescent Plasma 10/03, Toci X 1 on 10/03 ] Paroxysmal atrial fibrillation, currently in normal sinus rhythm -Seen by cardiology. Continue with metoprolol Transaminitis likely secondary to illness -Follow liver enzymes. Order hepatic ultrasound Hyponatremia secondary decreased solute intake in addition to water. -Improving Morbid obesity with BMI 41 -Structured outpatient weight loss Patient remains critically ill. In the ICU. D-dimer is going up. In view of COVID 19 be a prothrombotic condition and the d-dimer having gone up about 3 and requiring more oxygen was changed to therapeutic dose of Lovenox. Follow-up in medical information officer
[2020-10-05] MEDS ORDERED: ENOXAPARIN 60 MG/0.6 ML SYRINGE SQ ONE (21:00)
[2020-10-05] MEDS ORDERED: ENOXAPARIN 60 MG/0.6 ML SYRINGE SQ SCH (21:00)
[2020-10-05 23:28] LABS: Glucose,Whole Blood 111 mg/dL (75-99)
[2020-10-06] MEDS: ALBUTEROL HFA INHALER INHALATION SCH ×6 (01:20→19:24)
[2020-10-06 04:42] LABS: Basophils # (A) 0.1 k/uL (0-0.2); Basophils % (A) 1 %; Eosinophils % (A) 0 %; HCT 39.6 % (34.0-46.0); HGB 13.2 gm/dL (11.4-16.0); Lymphocytes # (A) 0.4 k/uL (1.0-4.8); Lymphocytes % (A) 5 %; MCH 28.5 pg (25.0-35.0); MCHC 33.4 g/dL (31.0-37.0); MCV 85.3 fL (80.0-100.0); Mean Platelet Volume 7.2; Monocytes # (A) 0.3 k/uL (0-1.0); Monocytes % (A) 4 %; Neutrophils # (A) 6.5 k/uL (1.3-7.7); Neutrophils % (A) 88 %; Platelet Count 238 k/uL (150-450); RBC 4.64 m/uL (3.80-5.40); RDW 13.6 % (11.5-15.5); WBC 7.4 k/uL (3.8-10.6)
[2020-10-06 05:10] LABS: Albumin 3.4 g/dL (3.5-5.0); C Reactive Protein 25.1 mg/L (<10.0); Potassium 5.3 mmol/L (3.5-5.1); Total Bilirubin 0.5 mg/dL (0.2-1.3); Total Protein 6.1 g/dL (6.3-8.2)
[2020-10-06 05:53] LABS: Glucose,Whole Blood 109 mg/dL (75-99)
--- NOTE | 2020-10-06 08:24 | XR ---
EXAMINATION TYPE: XR chest 1V portable DATE OF EXAM: 10/06/2020 COMPARISON: 10/05/2020 HISTORY: Shortness of breath TECHNIQUE: Single frontal view of the chest is obtained. FINDINGS: A diffuse bilateral areas of mixed alveolar and interstitial infiltrate. Biapical pleural thickening. No sizable effusion. Heart size stable. IMPRESSION: Diffuse pleural-parenchymal changes are stable correlate for diffuse pneumonia. ARDS or Pulmonary edema not excluded
[2020-10-06] MEDS ORDERED: ENOXAPARIN 120 MG/0.8 ML SYRINGE SQ SCH (09:00)
--- NOTE | 2020-10-06 09:03 | P.PN ---
Subjective Progress Note Date: 10/06/20 Principal diagnosis: Cardiac arrhythmia This is a 60-year-old gentleman who was admitted to the hospital with COVID-19 infection and we consulted to see the patient for paroxysmal supraventricular tachycardia and also brief episode of atrial fibrillation with RVR. The patient was seen today. The patient has been maintaining normal sinus mechanism and also the patient has been stable hemodynamically. Currently she is on metoprolol. The echo showed normal LV function without significant valvular abnormalities. At this point I would continue the current medical regimen with increasing the dose of metoprolol to 50 mg by mouth twice a day for better heart rate and blood pressure control. Objective - Vital Signs Vital signs: Vital Signs Temp 98.7 F 10/06/20 04:00 Pulse 75 10/06/20 07:00 Resp 31 H 10/06/20 07:00 BP 153/89 10/06/20 07:00 Pulse Ox 96 10/06/20 07:00 Intake & Output 10/05/20 10/06/20 10/06/20 18:59 06:59 18:59 Intake Total 120 120 10 Output Total 600 550 Balance -480 -430 10 Weight 124 kg Intake: IV 120 120 10 0.9 120 120 10 Output: Urine 600 550 Other: Voiding Method Bedpan Bedpan - Labs CBC & Chem 7: 10/06/20 03:30 10/06/20 03:30 Labs: Abnormal Lab Results - Last 24 Hours (Table) 10/05/20 10/05/20 10/05/20 Range/Units 04:20 12:01 17:40 Lymphocytes # (1.0-4.8) k/uL D-Dimer (<0.60) mg/L FEU Potassium (3.5-5.1) mmol/L Carbon Dioxide (22-30) mmol/L BUN (7-17) mg/dL Glucose (74-99) mg/dL POC Glucose (mg/dL) 106 H 119 H (75-99) mg/dL Calcium (8.4-10.2) mg/dL Ferritin 1414.5 H (10.0-291.0) ng/mL AST (14-36) U/L ALT (4-34) U/L Alkaline Phosphatase (38-126) U/L Lactate Dehydrogenase (313-618) U/L Creatine Kinase (30-135) U/L C-Reactive Protein (<10.0) mg/L Total Protein (6.3-8.2) g/dL Albumin (3.5-5.0) g/dL 10/05/20 10/06/20 10/06/20 Range/Units 23:26 03:30 03:30 Lymphocytes # (1.0-4.8) k/uL D-Dimer 22.82 H (<0.60) mg/L FEU Potassium 5.3 H (3.5-5.1) mmol/L Carbon Dioxide 34 H (22-30) mmol/L BUN 32 H (7-17) mg/dL Glucose 106 H (74-99) mg/dL POC Glucose (mg/dL) 111 H (75-99) mg/dL Calcium 8.0 L (8.4-10.2) mg/dL Ferritin (10.0-291.0) ng/mL AST 85 H (14-36) U/L ALT 49 H (4-34) U/L Alkaline Phosphatase 157 H (38-126) U/L Lactate Dehydrogenase 4670 H (313-618) U/L Creatine Kinase 607 H (30-135) U/L C-Reactive Protein 25.1 H (<10.0) mg/L Total Protein 6.1 L (6.3-8.2) g/dL Albumin 3.4 L (3.5-5.0) g/dL 10/06/20 10/06/20 Range/Units 03:30 05:52 Lymphocytes # 0.4 L (1.0-4.8) k/uL D-Dimer (<0.60) mg/L FEU Potassium (3.5-5.1) mmol/L Carbon Dioxide (22-30) mmol/L BUN (7-17) mg/dL Glucose (74-99) mg/dL POC Glucose (mg/dL) 109 H (75-99) mg/dL Calcium (8.4-10.2) mg/dL Ferritin (10.0-291.0) ng/mL AST (14-36) U/L ALT (4-34) U/L Alkaline Phosphatase (38-126) U/L Lactate Dehydrogenase (313-618) U/L Creatine Kinase (30-135) U/L C-Reactive Protein (<10.0) mg/L Total Protein (6.3-8.2) g/dL Albumin (3.5-5.0) g/dL Microbiology - Last 24 Hours (Table) 10/02/20 15:15 Blood Culture - Preliminary Blood No Growth after 72 hours 10/02/20 14:48 Blood Culture - Preliminary Blood No Growth after 72 hours Assessment and Plan Assessment: Assessment #1 COVID-19 infection #2 acute hypoxic respiratory failure #3 paroxysmal atrial fibrillation with only 1 brief episode #4 multiple comorbid conditions Plan #1 increase the dose of metoprolol tartrate to 50 mg by mouth twice a day #2 consider oral anticoagulation if the patient developed any more episode of atrial fibrillation #3 the echo was reviewed and showed normal LV function #4 follow-up with the patient
[2020-10-06] MEDS: METOPROLOL TARTRATE 25 MG TAB PO SCH (09:10)
[2020-10-06] MEDS: DEXAMETHASONE SOD PHOSPHATE 10 MG/ML 1 ML VIAL IV SCH (09:10)
[2020-10-06] MEDS: LORATADINE 10 MG TAB PO SCH (09:11)
[2020-10-06] MEDS: CHOLECALCIFEROL 25 MCG (1000 IU) TABLET PO SCH (09:11)
[2020-10-06] MEDS: ZINC SULFATE 220 MG CAP PO SCH (09:11)
[2020-10-06] MEDS: FAMOTIDINE 20 MG TAB PO SCH ×2 (09:11→20:24)
[2020-10-06] MEDS: ASCORBIC ACID 500 MG TAB PO SCH (09:11)
--- NOTE | 2020-10-06 09:51 | US ---
EXAMINATION TYPE: US abdomen limited DATE OF EXAM: 10/06/2020 COMPARISON: NONE CLINICAL HISTORY: Elevated liver enzymes. EXAM MEASUREMENTS: Liver Length: 18.2 cm Gallbladder Wall: unable to define wall to measure CBD: 0.5 cm Right Kidney: unable to visualize in its entirety to measure Morbidly obese patient in ICU, sitting upright, breathing machine, unable to move for examiner. Sever e technical limitations, very limited exam. Pancreas: Obscured by bowel gas Liver: upper limits of normal in size, very limited visualization shows no obvious abnormality Gallbladder: VENECIA sign, unable to define wall to measure Evidence for sonographic [place]'s sign: no CBD: very limited visualization shows no obvious abnormality Right Kidney: limited views IMPRESSION: 1. Severely limited exam findings suggest most likely a collapsed gallbladder containing multiple gal lstones which could be confirmed with CAT scan. Common bile duct measures within normal limits.
[2020-10-06] MEDS: FLUTICASONE 50MCG/SPRAY NASAL 16GM EA NOSTRIL SCH (11:01)
[2020-10-06 11:42] LABS: Glucose,Whole Blood 110 mg/dL (75-99)
--- NOTE | 2020-10-06 11:48 | P.PN ---
Subjective Progress Note Date: 10/06/20 Principal diagnosis: Acute hypoxic respiratory failure secondary to acute COVID 19 pneumonitis This is a 60-year-old female with no previous significant medical history, on 09/23/20, she was diagnosed with acute covid 19 infection. Patient took foal-qtf-wbtigur medications. And yesterday she presented to the ER and she was found in atrial fibrillation with RVR. And her chest x-ray showed diffuse interstitial pneumonitis. Patient was found to have elevated inflammatory mar kers with LDH of 2894, and C-reactive protein of 8.2. Considering the patient had over 1 week of symptoms, she was felt to be outside the window for REM. Her atrial fibrillation and RVR was treated with Cardizem and later metoprolol orally. She was also placed on heparin. Chest x-ray was quite concerning. Patient required placement on a nonrebreather mask. Later placed on high flow airvo with a non-rebreather mask, and her O2 saturations remained marginal around 88-93%. I saw this patient this morning, and I recommended immediate transfer to the ICU. Chest x-ray was reviewed and it is consistent with acute Covid 19 pneumonitis. Her d-dimer was 0.98.CBC was relatively normal. LDH is up to 3596. And C-reactive protein is up to 76.8 after evaluating the patient, I recommended convalescent plasma. I also recommended actemra. Patient was reevaluated today on 10/04/2020, patient remains in the ICU, she is presently on BiPAP with IPAP of 14 EPAP of 6, and FiO2 is 100%. We ordered actemra and convalescent plasma on this patient. And I believe she received both. Patient was out of the window for REM. Remains on the Covid 19 cocktail. CBC is relatively normal d-dimer 0.73 lites are normal her inflammatory markers are high with LDH of 09/05/2005 and C-reactive protein of 75. Clinically the patient is about the same, not much change from yesterday, she has intermittent cough, and shortness of breath with any activity. Her pulmonary status is marginal at best. On 10/05/2020 and patient seen in follow-up in the intensive care unit. She remains on BiPAP support with pressures of 14/60 FiO2 of 100% with a pulse ox between 90-97%, afebrile, a bit hypertensive, with systolic between 160-180 and diastolic in 90-100. Patient is status post Tocilizumab 800 mg IV piggyback infusion on 10/03/2020 and she has received 1 unit of convalescent plasma on 10/03/2020. Continues on Decadron 6 mg daily, Lovenox 40 mg daily, Pepcid, IV fluids 0.9 normal saline infusing at 25 ML per hour. Today's labs have been reviewed, d-dimer 3.6, B1 is 32, creatinine 0.81, CO2 is 33, the rest of the electrolytes were unremarkable, ferritin level is 1414, AST is 79, which has improved, and ALT is 41 which is relatively stable, up slightly from 39, but overall improving, LDH remains significantly elevated at 3977, CRP is 45.6. Chest x-ray shows diffuse bilateral infiltrates. On 10/07/1999 patient seen in follow-up in the intensive care unit. She remains on BiPAP support on which she is most of the time, with pressures of 14/6, 100% FiO2. Pulse ox is 95%, low-grade fevers with a temp of 99.4 axillary this morning, hemodynamically patient remains stable, not on any drips, 0.9 normal saline at 20 ML per hour, today's d-dimer is up to 22.82, and the patient was started on therapeutic doses of Lovenox 120 mg twice daily, however we will switch the patient to 0.5 mg/kg dosing twice daily. Today's inflammatory markers are continue to trend up, LDH is up to 4670, and a CK is 607, and CRP is down some to 25.1. Abdominal ultrasound was completed in view of elevated liver enzymes and it was a severely limited exam suggesting mostly a collapsed gallbladder containing multiple gallstones, bile duct measures were within normal limits. Today's chest x-ray showed diffuse pleural parenchymal changes correlating with diffuse pneumonia. Hemodynamically patient has been stable, maintaining normal sinus rhythm, echocardiogram showed normal LV function without significant valvular abnormalities, cardiology is following and has been adjusting beta blockers for better heart rate and blood pressure control. Objective - Vital Signs Vital signs: Vital Signs Temp 99.4 F 10/06/20 08:00 Pulse 88 10/06/20 10:00 Resp 44 H 10/06/20 10:00 BP 155/91 10/06/20 10:00 Pulse Ox 95 10/06/20 10:00 Intake & Output 10/05/20 10/06/20 10/06/20 18:59 06:59 18:59 Intake Total 120 120 70 Output Total 600 550 Balance -480 -430 70 Weight 124 kg 124 kg Intake: IV 120 120 70 0.9 120 120 70 Output: Urine 600 550 Other: Voiding Method Bedpan Bedpan Bedpan # Voids 1 - Exam GENERAL EXAM: Alert, very pleasant, 60-year-old white female, on BiPAP support, with pressures of 14 and 6 and FiO2 100% comfortable in no apparent distress. HEAD: Normocephalic/atraumatic. EYES: Normal reaction of pupils, equal size. Conjunctiva pink, sclera white. NOSE: Clear with pink turbinates. THROAT: No erythema or exudates. NECK: No masses, no JVD, no thyroid enlargement, no adenopathy. CHEST: No chest wall deformity. Symmetrical expansion. LUNGS: Equal air entry with diffuse crackles but no wheeze, rhonchi or dullness. CVS: Regular rate and rhythm, normal S1 and S2, no gallops, no murmurs, no rubs ABDOMEN: Soft, nontender. No hepatosplenomegaly, normal bowel sounds, no guarding or rigidity. EXTREMITIES: No clubbing, no edema, no cyanosis, 2+ pulses and upper and lower extremities. MUSCULOSKELETAL: Muscle strength and tone normal. SPINE: No scoliosis or deformity SKIN: No rashes CENTRAL NERVOUS SYSTEM: Alert and oriented -3. No focal deficits, tone is normal in all 4 extremities. PSYCHIATRIC: Alert and oriented -3. Appropriate affect. Intact judgment and insight. - Labs CBC & Chem 7: 10/06/20 03:30 10/06/20 03:30 Labs: Abnormal Lab Results - Last 24 Hours (Table) 10/05/20 10/05/20 10/05/20 Range/Units 04:20 12:01 17:40 Lymphocytes # (1.0-4.8) k/uL D-Dimer (<0.60) mg/L FEU Potassium (3.5-5.1) mmol/L Carbon Dioxide (22-30) mmol/L BUN (7-17) mg/dL Glucose (74-99) mg/dL POC Glucose (mg/dL) 106 H 119 H (75-99) mg/dL Calcium (8.4-10.2) mg/dL Ferritin 1414.5 H (10.0-291.0) ng/mL AST (14-36) U/L ALT (4-34) U/L Alkaline Phosphatase (38-126) U/L Lactate Dehydrogenase (313-618) U/L Creatine Kinase (30-135) U/L C-Reactive Protein (<10.0) mg/L Total Protein (6.3-8.2) g/dL Albumin (3.5-5.0) g/dL 10/05/20 10/06/20 10/06/20 Range/Units 23:26 03:30 03:30 Lymphocytes # (1.0-4.8) k/uL D-Dimer 22.82 H (<0.60) mg/L FEU Potassium 5.3 H (3.5-5.1) mmol/L Carbon Dioxide 34 H (22-30) mmol/L BUN 32 H (7-17) mg/dL Glucose 106 H (74-99) mg/dL POC Glucose (mg/dL) 111 H (75-99) mg/dL Calcium 8.0 L (8.4-10.2) mg/dL Ferritin (10.0-291.0) ng/mL AST 85 H (14-36) U/L ALT 49 H (4-34) U/L Alkaline Phosphatase 157 H (38-126) U/L Lactate Dehydrogenase 4670 H (313-618) U/L Creatine Kinase 607 H (30-135) U/L C-Reactive Protein 25.1 H (<10.0) mg/L Total Protein 6.1 L (6.3-8.2) g/dL Albumin 3.4 L (3.5-5.0) g/dL 10/06/20 10/06/20 Range/Units 03:30 05:52 Lymphocytes # 0.4 L (1.0-4.8) k/uL D-Dimer (<0.60) mg/L FEU Potassium (3.5-5.1) mmol/L Carbon Dioxide (22-30) mmol/L BUN (7-17) mg/dL Glucose (74-99) mg/dL POC Glucose (mg/dL) 109 H (75-99) mg/dL Calcium (8.4-10.2) mg/dL Ferritin (10.0-291.0) ng/mL AST (14-36) U/L ALT (4-34) U/L Alkaline Phosphatase (38-126) U/L Lactate Dehydrogenase (313-618) U/L Creatine Kinase (30-135) U/L C-Reactive Protein (<10.0) mg/L Total Protein (6.3-8.2) g/dL Albumin (3.5-5.0) g/dL Microbiology - Last 24 Hours (Table) 10/02/20 15:15 Blood Culture - Preliminary Blood No Growth after 72 hours 10/02/20 14:48 Blood Culture - Preliminary Blood No Growth after 72 hours Assessment and Plan Plan: assessment: #1. Acute hypoxic respiratory failure secondary to acute COVID 19 related pneumonitis, status post Tocilizumab and 1 unit of convalescent plasma on 2020, admitted to the ICU on 10/03/2020, remains on high flow oxygen with 15 L per high flow and 100% nonrebreather mask #2. History of paroxysmal atrial fibrillation, currently in sinus rhythm #3. Hypovolemic hyponatremia, improved with hydration #4. Increased d-dimer, related to acute COVID 19 #5. Increased transaminases related to acute viral pneumonia. Ultrasound abdomen was completed showing multiple gallbladder stones, however total bilirubin level is normal at 0.5 #6. Increased d-dimer due to acute COVID 19 related infection Plan: Continue current medical treatment, steroids, continue vitamins. Weaning FiO2 to maintain O2 sats between 92-94%. Ultrasound abdomen has been noted, we will add amylase lipase to this morning's labs. We will cut down the Lovenox to 60 mg every 12 hours, unless there is a recurrence of A. fib or there is evidence of PE or DVT. We will obtain a follow-up inflammatory markers tomorrow, follow up CMP. Continue to closely monitor in the ICU. I performed a history & physical examination of the patient and discussed their management with my nurse practitioner, Ena Daly. I reviewed the nurse practitioner's note and agree with the documented findings and plan of care. Lung sounds are positive for diminished breath sounds. The findings and the impression was discussed with the patient. I attest to the documentation by the nurse practitioner. , Time with Patient: Greater than 30
[2020-10-06 13:20] LABS: Ferritin 1312.7 ng/mL (10.0-291.0)
[2020-10-06 13:23] LABS: Amylase 32 U/L (30-110); Lipase 90 U/L (23-300)
[2020-10-06] MEDS: SODIUM CHLORIDE 0.9% 1,000 ML IV SCH (13:38)
[2020-10-06 18:00] LABS: Glucose,Whole Blood 146 mg/dL (75-99)
--- NOTE | 2020-10-06 19:18 | P.PN ---
Progress Note - Text Progress Note Date: 10/06/20 Presenting complaint Shortness of breath History of presenting complaint Patient is a 60-year-old female, follows with Dr. Herberth Hurd, with no known past medical history who presented to the ER secondary to shortness of breath and cough. She was diagnosed with COVID 19 on 09/23/20. In the ER she was saturating 85% on room air and was found to be in A. fib with RVR and heart rates 120 to 130. Initial labs showed d-dimer of 1.77, lymphocytes 0.5, sodium 132, carbon dioxide 19, BUN 25, AST 122, ALT 47, LDH 2894, and CRP to exceed 8.2. She was admitted and was started on Decadron. She was outside of the window for Remdesivir. She was started on a Cardizem drip as well as metoprolol orally for her A. fib. She was also started on a heparin drip. She's given fluids for her hyponatremia. Pulmonary was consulted. She was requiring a nonrebreather on admission and overnight on 10/03 she was requiring maximal therapy through an air follow along with her nonrebreather to maintain low normal O2 sats. She converted to normal sinus rhythm and her Cardizem drip was stopped. Cardiology was consulted for her A. fib. She was subsequently transferred to the ICU. She had reported some leg pain and venous Dopplers were negative in bilateral lower extremities heparin drip was stopped and she had converted to normal sinus mechanism and she was subsequently started on prophylactic Lovenox. Echocardiogram showed ejection fraction 55-60% with moderate LVH. She was unable to tolerated AIRVO and was started on BiPap. Today: ICU-on BiPAP with a setting of 14/6/100%. Awake. Tired. Telemetry - sinus rhythm. Drinking ensure Review of systems: Was done for constitutional, cardiovascular, GI, pulmonary. relevant finding as above Active Medications Acetaminophen (Acetaminophen Tab 325 Mg Tab) 650 mg PO Q6HR PRN PRN Reason: Mild Pain or Fever > 100.5 Hydrocodone Bitart/Acetaminophen (Hydrocodone/Apap 5-325mg 1 Each Tab) 1 each PO Q6HR PRN PRN Reason: Pain Last Admin: 10/03/20 09:19 Dose: 1 each Documented by: Albuterol Sulfate (Albuterol Hfa Inhaler) 2 puff INHALATION RT-Q4H EILEEN Last Admin: 10/06/20 15:10 Dose: 2 puff Documented by: Albuterol Sulfate (Albuterol Hfa Inhaler) 2 puff INHALATION RT-QID PRN PRN Reason: Shortness Of Breath Or Wheezing Ascorbic Acid (Ascorbic Acid 500 Mg Tab) 1,000 mg PO DAILY [facility] Last Admin: 10/06/20 09:11 Dose: 1,000 mg Documented by: Cholecalciferol (Cholecalciferol 25 Mcg (1000 Iu) Tablet) 100 mcg PO DAILY [facility] Last Admin: 10/06/20 09:11 Dose: 100 mcg Documented by: Dexamethasone Sodium Phosphate (Dexamethasone Sod Phosphate 10 Mg/Ml 1 Ml Vial) 6 mg IV DAILY [facility] Last Admin: 10/06/20 09:10 Dose: 6 mg Documented by: Enoxaparin Sodium (Enoxaparin 60 Mg/0.6 Ml Syringe) 60 mg SQ Q12HR [facility] Famotidine (Famotidine 20 Mg Tab) 20 mg PO BID [facility] Last Admin: 10/06/20 09:11 Dose: 20 mg Documented by: Fluticasone Propionate (Fluticasone 50mcg/[place] Nasal 16gm) 2 spray EA NOSTRIL DAILY [facility] Last Admin: 10/06/20 11:01 Dose: Not Given Documented by: Sodium Chloride (Saline 0.9%) 1,000 mls @ 25 mls/hr IV .Q24H [facility] Last Admin: 10/06/20 13:38 Dose: Not Given Documented by: Loratadine (Loratadine 10 Mg Tab) 10 mg PO DAILY [facility] Last Admin: 10/06/20 09:11 Dose: 10 mg Documented by: Metoprolol Tartrate (Metoprolol Tartrate 50 Mg Tab) 50 mg PO BID [facility] Morphine Sulfate (Morphine Sulfate 2 Mg/Ml Syringe) 2 mg IVP Q4H PRN PRN Reason: anxiety Naloxone HCl (Naloxone 0.4 Mg/Ml 1 Ml Vial) 0.2 mg IV Q2M PRN PRN Reason: Opioid Reversal Ondansetron HCl (Ondansetron 4 Mg/2 Ml Vial) 4 mg IVP Q8HR PRN PRN Reason: Nausea And Vomiting Zinc Sulfate (Zinc Sulfate 220 Mg Cap) 220 mg PO DAILY [facility] Last Admin: 10/06/20 09:11 Dose: 220 mg Documented by: On examination: VITAL SIGNS: 97.9, 88, 31, 164/96, 94% on 100% BiPAP GENERAL APPEARANCE: Laying in bed with BiPAP, tired awake RESPIRATORY: Respiratory effort increased. Accessory muscles working NEUROLOGICAL: Cranial nerves grossly intact. Moving all 4 limbs PSYCHIATRY: Alert and oriented x3. Mood and affect tired. Rest of the exam per pulmonary and nursing Investigations: October 06: WBC 7.4 hemoglobin 13.2 platelets 238 d-dimer 22.8 potassium 5.3 creatinine 0.8 CRP 25.1 Abdominal ultrasound limited: Very limited exam. Possible gallstones. October 05: WBC 5.3 hemoglobin 12.9 platelets 260 d-dimer 3.65 potassium 4.9 creatinine 0.81 CRP 45.6 Chest x-ray film personally reviewed by me-[October 05]: Bilateral infiltrates more so in the lower zone Lower extremity Doppler ultrasound: Negative for DVT 2-D echocardiogram: Concentric LVH, EF 55-60% Admission labs: D-dimer 1.77 CRP 68.2 Assessment and plan: COVID 19 pneumonia with acute hypoxic respiratory failure, slow to respond -Continue with Decadron, Zinc, vitamin C, vitamin D, Lovenox [ Convolescent Plasma 10/03, Toci X 1 on 10/03 ] Paroxysmal atrial fibrillation, currently in normal sinus rhythm -Seen by cardiology. Continue with metoprolol Transaminitis likely secondary to illness -Follow liver enzymes. ultrasound: Poor quality. Gallstones, asymptomatic Hyponatremia secondary decreased solute intake in addition to water. -Corrected Morbid obesity with BMI 41 -Structured outpatient weight loss Patient remains critically ill.
[2020-10-06] MEDS: ENOXAPARIN 60 MG/0.6 ML SYRINGE SQ SCH (20:24)
[2020-10-06] MEDS ORDERED: METOPROLOL TARTRATE 50 MG TAB PO SCH (21:00)
[2020-10-07] MEDS: ALBUTEROL HFA INHALER INHALATION SCH ×6 (00:09→23:18)
[2020-10-07] MEDS: MORPHINE SULFATE 2 MG/ML SYRINGE IVP PRN ×4 (02:47→22:17)
[2020-10-07 05:59] LABS: Basophils # (A) 0.1 k/uL (0-0.2); Basophils % (A) 1 %; Eosinophils # (A) 0.1 k/uL (0-0.7); Eosinophils % (A) 1 %; HCT 40.2 % (34.0-46.0); Lymphocytes # (A) 0.6 k/uL (1.0-4.8); Lymphocytes % (A) 5 %; MCH 29.4 pg (25.0-35.0); MCHC 34.9 g/dL (31.0-37.0); MCV 84.2 fL (80.0-100.0); Mean Platelet Volume 7.3; Monocytes # (A) 0.4 k/uL (0-1.0); Monocytes % (A) 3 %; Neutrophils % (A) 90 %; Platelet Count 195 k/uL (150-450); RBC 4.77 m/uL (3.80-5.40); RDW 13.4 % (11.5-15.5); WBC 13.3 k/uL (3.8-10.6)
[2020-10-07 06:01] LABS: Glucose,Whole Blood 100 mg/dL (75-99)
[2020-10-07 06:18] LABS: ALT 64 U/L (4-34); AST 124 U/L (14-36); African American GFR (CKD) >90 (>60 ml/min/1.73 sqM); Albumin 3.4 g/dL (3.5-5.0); Alkaline Phosphatase 223 U/L (38-126); Anion Gap 4 mmol/L; Blood Urea Nitrogen 34 mg/dL (7-17); C Reactive Protein 17.1 mg/L (<10.0); Carbon Dioxide 31 mmol/L (22-30); Chloride 104 mmol/L (98-107); Creatine Kinase 557 U/L (30-135); Glucose 104 mg/dL (74-99); Non-African American GFR(CKD) 83 (>60 ml/min/1.73 sqM); Potassium 4.8 mmol/L (3.5-5.1); Sodium 139 mmol/L (137-145); Total Bilirubin 0.7 mg/dL (0.2-1.3)
[2020-10-07 06:48] LABS: LDH 6384 U/L (313-618)
--- NOTE | 2020-10-07 08:04 | XR ---
EXAMINATION TYPE: XR chest 1V portable DATE OF EXAM: 10/07/2020 COMPARISON: 10/06/2020 HISTORY: Shortness of breath TECHNIQUE: Single frontal view of the chest is obtained. FINDINGS: Diffuse bilateral areas of infiltrate with pleural effusion noted. Biapical pleural thicke karl. Heart size is stable. No pneumothorax. IMPRESSION: Diffuse bilateral infiltrates stable
--- NOTE | 2020-10-07 08:34 | P.PN ---
Subjective Progress Note Date: 10/07/20 Principal diagnosis: Cardiac arrhythmia This is a 60-year-old gentleman who was admitted to the hospital with COVID-19 infection and we consulted to see the patient for paroxysmal supraventricular tachycardia and also brief episode of atrial fibrillation with RVR. The patient was seen today October [id number]. She remains intubated on mechanical ventilation. Hemodynamically she is stable and as a matter of fact she is slightly hypertensive. I'm going to increase the dose of metoprolol to 75 mg by mouth twice a day. The echo showed normal left ventricular systolic function without significant valvular abnormalities. The patient has been maintaining normal sinus mechanism. Beside that the chest x-ray was reviewed and showed bilateral infiltrate. I'm going to obtain an NT proBNP just to help in stratifying the fluid status and the need for any diuretics at this point. Objective - Vital Signs Vital signs: Vital Signs Temp 99.5 F 10/07/20 04:00 Pulse 84 10/07/20 07:00 Resp 40 H 10/07/20 07:00 BP 156/101 10/07/20 07:00 Pulse Ox 87 L 10/07/20 07:00 Intake & Output 10/06/20 10/07/20 10/07/20 18:59 06:59 18:59 Intake Total 230 240 20 Output Total 0 500 0 Balance 230 -260 20 Weight 124 kg 124.3 kg Intake: IV 230 240 20 0.9 230 240 20 Output: Urine 0 500 0 Other: Voiding Method Bedpan Bedpan # Voids 0 - Labs CBC & Chem 7: 10/07/20 05:07 10/07/20 05:07 Labs: Abnormal Lab Results - Last 24 Hours (Table) 10/06/20 10/06/20 10/06/20 Range/Units 03:30 11:40 12:31 WBC (3.8-10.6) k/uL Neutrophils # (1.3-7.7) k/uL Lymphocytes # (1.0-4.8) k/uL D-Dimer (<0.60) mg/L FEU Carbon Dioxide (22-30) mmol/L BUN (7-17) mg/dL Glucose (74-99) mg/dL POC Glucose (mg/dL) 110 H (75-99) mg/dL Calcium (8.4-10.2) mg/dL Ferritin 1312.7 H (10.0-291.0) ng/mL AST (14-36) U/L ALT (4-34) U/L Alkaline Phosphatase (38-126) U/L Lactate Dehydrogenase (313-618) U/L Creatine Kinase (30-135) U/L C-Reactive Protein (<10.0) mg/L Total Protein (6.3-8.2) g/dL Albumin (3.5-5.0) g/dL Procalcitonin 0.10 H (0.02-0.09) ng/mL 10/06/20 10/07/20 10/07/20 Range/Units 17:58 05:07 05:07 WBC 13.3 H (3.8-10.6) k/uL Neutrophils # 12.0 H (1.3-7.7) k/uL Lymphocytes # 0.6 L (1.0-4.8) k/uL D-Dimer >34.10 H (<0.60) mg/L FEU Carbon Dioxide (22-30) mmol/L BUN (7-17) mg/dL Glucose (74-99) mg/dL POC Glucose (mg/dL) 146 H (75-99) mg/dL Calcium (8.4-10.2) mg/dL Ferritin (10.0-291.0) ng/mL AST (14-36) U/L ALT (4-34) U/L Alkaline Phosphatase (38-126) U/L Lactate Dehydrogenase (313-618) U/L Creatine Kinase (30-135) U/L C-Reactive Protein (<10.0) mg/L Total Protein (6.3-8.2) g/dL Albumin (3.5-5.0) g/dL Procalcitonin (0.02-0.09) ng/mL 10/07/20 10/07/20 Range/Units 05:07 06:00 WBC (3.8-10.6) k/uL Neutrophils # (1.3-7.7) k/uL Lymphocytes # (1.0-4.8) k/uL D-Dimer (<0.60) mg/L FEU Carbon Dioxide 31 H (22-30) mmol/L BUN 34 H (7-17) mg/dL Glucose 104 H (74-99) mg/dL POC Glucose (mg/dL) 100 H (75-99) mg/dL Calcium 8.0 L (8.4-10.2) mg/dL Ferritin (10.0-291.0) ng/mL AST 124 H (14-36) U/L ALT 64 H (4-34) U/L Alkaline Phosphatase 223 H (38-126) U/L Lactate Dehydrogenase 6384 H (313-618) U/L Creatine Kinase 557 H (30-135) U/L C-Reactive Protein 17.1 H (<10.0) mg/L Total Protein 6.0 L (6.3-8.2) g/dL Albumin 3.4 L (3.5-5.0) g/dL Procalcitonin (0.02-0.09) ng/mL Microbiology - Last 24 Hours (Table) 10/02/20 15:15 Blood Culture - Preliminary Blood No Growth after 96 hours 10/02/20 14:48 Blood Culture - Preliminary Blood No Growth after 96 hours Assessment and Plan Assessment: Assessment #1 COVID-19 infection #2 acute hypoxic respiratory failure #3 paroxysmal atrial fibrillation with only 1 brief episode #4 multiple comorbid conditions Plan #1 increase the dose of metoprolol tartrate to 75 mg by mouth twice a day #2 consider oral anticoagulation if the patient developed any more episode of atrial fibrillation #3 the echo was reviewed and showed normal LV function #4 the check NT proBNP
[2020-10-07 09:20] LABS: ABG Base Excess 6.3 mmol/L; ABG HCO3 30 mmol/L (21-25); ABG Oxygen Saturation 93.4 % (94-97); ABG PCO2 43 mmHg (35-45); ABG PH 7.46 (7.35-7.45); ABG PO2 66 mmHg (83-108); ABG TCO2 32 mmol/L (19-24); Allen Test Performed? Yes
[2020-10-07] MEDS: ASCORBIC ACID 500 MG TAB PO SCH (10:01)
[2020-10-07] MEDS: CHOLECALCIFEROL 25 MCG (1000 IU) TABLET PO SCH (10:02)
[2020-10-07] MEDS: ZINC SULFATE 220 MG CAP PO SCH (10:02)
[2020-10-07] MEDS: FLUTICASONE 50MCG/SPRAY NASAL 16GM EA NOSTRIL SCH (10:02)
[2020-10-07] MEDS: FAMOTIDINE 20 MG TAB PO SCH (10:04)
[2020-10-07] MEDS: DEXAMETHASONE SOD PHOSPHATE 10 MG/ML 1 ML VIAL IV SCH (10:58)
[2020-10-07] MEDS: FAMOTIDINE 20 MG/2 ML VIAL IV SCH ×2 (10:58→21:32)
[2020-10-07] MEDS: ENOXAPARIN 60 MG/0.6 ML SYRINGE SQ SCH ×2 (11:15→21:32)
[2020-10-07] MEDS: DEXMEDETOMIDINE/0.9% NACL(PMX) 400 MCG in EMPTY BAG 1 BAG IV SCH ×2 (11:15→15:36)
[2020-10-07 11:55] LABS: Glucose,Whole Blood 125 mg/dL (75-99)
--- NOTE | 2020-10-07 12:18 | P.PN ---
Subjective Progress Note Date: 10/07/20 Principal diagnosis: Hypoxemic respiratory failure. On 10/05/2020 and patient seen in follow-up in the intensive care unit. She remains on BiPAP support with pressures of 14/60 FiO2 of 100% with a pulse ox between 90-97%, afebrile, a bit hypertensive, with systolic between 160-180 and diastolic in 90-100. Patient is status post Tocilizumab 800 mg IV piggyback infusion on 10/03/2020 and she has received 1 unit of convalescent plasma on 10/03/2020. Continues on Decadron 6 mg daily, Lovenox 40 mg daily, Pepcid, IV fluids 0.9 normal saline infusing at 25 ML per hour. Today's labs have been reviewed, d-dimer 3.6, B1 is 32, creatinine 0.81, CO2 is 33, the rest of the electrolytes were unremarkable, ferritin level is 1414, AST is 79, which has improved, and ALT is 41 which is relatively stable, up slightly from 39, but overall improving, LDH remains significantly elevated at 3977, CRP is 45.6. Chest x-ray shows diffuse bilateral infiltrates. On 10/07/1999 patient seen in follow-up in the intensive care unit. She remains on BiPAP support on which she is most of the time, with pressures of 14/6, 100% FiO2. Pulse ox is 95%, low-grade fevers with a temp of 99.4 axillary this morning, hemodynamically patient remains stable, not on any drips, 0.9 normal saline at 20 ML per hour, today's d-dimer is up to 22.82, and the patient was started on therapeutic doses of Lovenox 120 mg twice daily, however we will switch the patient to 0.5 mg/kg dosing twice daily. Today's inflammatory markers are continue to trend up, LDH is up to 4670, and a CK is 607, and CRP is down some to 25.1. Abdominal ultrasound was completed in view of elevated liver enzymes and it was a severely limited exam suggesting mostly a collapsed gallbladder containing multiple gallstones, bile duct measures were within normal limits. Today's chest x-ray showed diffuse pleural parenchymal changes correlating with diffuse pneumonia. Hemodynamically patient has been stable, maintaining normal sinus rhythm, echocardiogram showed normal LV function without significant valvular abnormalities, cardiology is following and has been adjusting beta blockers for better heart rate and blood pressure control. Progress note dated 10/07/2020. 60-year-old female, who was diagnosis with acute coronavirus infection, on September 23. Unfortunately, she developed acute COVID 19 pneumonia. In his been in the intensive care unit for a number of days. Currently, she is on BiPAP with settings of IPAP 14 and EPAP 6, and 100%. She is on saline at 20 mL an hour. Her respiratory status has clearly declined, and we did offer her intubation and mechanical ventilation. Unfortunately, she did not want intubation or mechanical ventilation. We did discuss this with her and her family members. Today, white count was 13.3, he lobe and 14, hematocrit 40.2, and platelet count 195,000. D-dimer is 34.10. Arterial blood gas shows a pO2 of 66, pCO2 of 43, and a pH of 7.46. Sodium 139, potassium 4.8 chloride 104, and CO2 31. Anion gap is 4, BUN 34, and creatinine 0.78. LDH is 6384. CK was 557, C-reactive protein is 17.1. N-terminal proBNP was 2180. Chest x-ray, shows diffuse bilateral infiltrates, which appear a bit worse. Objective - Vital Signs Vital signs: Vital Signs Temp 98.7 F 10/07/20 12:00 Pulse 89 10/07/20 12:00 Resp 41 H 10/07/20 12:00 BP 161/103 10/07/20 12:00 Pulse Ox 87 L 10/07/20 12:00 Intake & Output 10/06/20 10/07/20 10/07/20 18:59 06:59 18:59 Intake Total 230 240 125.179 Output Total 0 500 180 Balance 230 -260 -54.821 Weight 124 kg 124.3 kg Intake: IV 230 240 120 0.9 230 240 120 Intake, IV Titration 5.179 Amount Dexmedetomidine/0.9% NaCl 5.179 (Pmx) 400 mcg In Empty Bag 1 bag @ Titrate IV . Q0M [facility] Rx#:[id number] Output: Urine 0 500 180 Other: Voiding Method Bedpan Bedpan # Voids 0 0 - Exam Significant tachypnea and dyspnea, with use of accessory muscles. Saturations in the mid 80s. HEENT examination is grossly unremarkable. BiPAP mask in place. Neck supple. Full range of motion. No adenopathy thyromegaly or neck vein distention. Cardiovascular examination reveals regular rhythm rate. S1-S2 normal. No S3 or S4. No discernible murmur noted. Heart rate 47 bpm. Lungs reveal coarse bilateral rhonchi and crackles. Breath sounds equal. No wheezes. Abdomen soft bowel sounds are heard. No masses or tenderness. Extremities are intact. No cyanosis clubbing or edema. Skin is without rash or lesion. Neurologic examination is brief but nonfocal. - Labs CBC & Chem 7: 10/07/20 05:07 10/07/20 05:07 Labs: Abnormal Lab Results - Last 24 Hours (Table) 10/06/20 10/06/20 10/06/20 Range/Units 03:30 12:31 17:58 WBC (3.8-10.6) k/uL Neutrophils # (1.3-7.7) k/uL Lymphocytes # (1.0-4.8) k/uL D-Dimer (<0.60) mg/L FEU ABG pH (7.35-7.45) ABG pO2 (83-108) mmHg ABG HCO3 (21-25) mmol/L ABG Total CO2 (19-24) mmol/L ABG O2 Saturation (94-97) % Carbon Dioxide (22-30) mmol/L BUN (7-17) mg/dL Glucose (74-99) mg/dL POC Glucose (mg/dL) 146 H (75-99) mg/dL Calcium (8.4-10.2) mg/dL Ferritin 1312.7 H (10.0-291.0) ng/mL AST (14-36) U/L ALT (4-34) U/L Alkaline Phosphatase (38-126) U/L Lactate Dehydrogenase (313-618) U/L Creatine Kinase (30-135) U/L C-Reactive Protein (<10.0) mg/L Total Protein (6.3-8.2) g/dL Albumin (3.5-5.0) g/dL Procalcitonin 0.10 H (0.02-0.09) ng/mL 10/07/20 10/07/20 10/07/20 Range/Units 05:07 05: 05:07 WBC 13.3 H (3.8-10.6) k/uL Neutrophils # 12.0 H (1.3-7.7) k/uL Lymphocytes # 0.6 L (1.0-4.8) k/uL D-Dimer >34.10 H (<0.60) mg/L FEU ABG pH (7.35-7.45) ABG pO2 (83-108) mmHg ABG HCO3 (21-25) mmol/L ABG Total CO2 (19-24) mmol/L ABG O2 Saturation (94-97) % Carbon Dioxide 31 H (22-30) mmol/L BUN 34 H (7-17) mg/dL Glucose 104 H (74-99) mg/dL POC Glucose (mg/dL) (75-99) mg/dL Calcium 8.0 L (8.4-10.2) mg/dL Ferritin (10.0-291.0) ng/mL AST 124 H (14-36) U/L ALT 64 H (4-34) U/L Alkaline Phosphatase 223 H (38-126) U/L Lactate Dehydrogenase 6384 H (313-618) U/L Creatine Kinase 557 H (30-135) U/L C-Reactive Protein 17.1 H (<10.0) mg/L Total Protein 6.0 L (6.3-8.2) g/dL Albumin 3.4 L (3.5-5.0) g/dL Procalcitonin (0.02-0.09) ng/mL 10/07/20 10/07/20 10/07/20 Range/Units 06:00 09:18 11:53 WBC (3.8-10.6) k/uL Neutrophils # (1.3-7.7) k/uL Lymphocytes # (1.0-4.8) k/uL D-Dimer (<0.60) mg/L FEU ABG pH 7.46 H (7.35-7.45) ABG pO2 66 L (83-108) mmHg ABG HCO3 30 H (21-25) mmol/L ABG Total CO2 32 H (19-24) mmol/L ABG O2 Saturation 93.4 L (94-97) % Carbon Dioxide (22-30) mmol/L BUN (7-17) mg/dL Glucose (74-99) mg/dL POC Glucose (mg/dL) 100 H 125 H (75-99) mg/dL Calcium (8.4-10.2) mg/dL Ferritin (10.0-291.0) ng/mL AST (14-36) U/L ALT (4-34) U/L Alkaline Phosphatase (38-126) U/L Lactate Dehydrogenase (313-618) U/L Creatine Kinase (30-135) U/L C-Reactive Protein (<10.0) mg/L Total Protein (6.3-8.2) g/dL Albumin (3.5-5.0) g/dL Procalcitonin (0.02-0.09) ng/mL Microbiology - Last 24 Hours (Table) 10/02/20 15:15 Blood Culture - Preliminary Blood No Growth after 96 hours 10/02/20 14:48 Blood Culture - Preliminary Blood No Growth after 96 hours Assessment and Plan Assessment: #1. Acute hypoxic respiratory failure secondary to acute COVID 19 related pneumonitis, status post Tocilizumab and 1 unit of convalescent plasma on 10/03/2020, admitted to the ICU on 10/03/2020, remains on high flow oxygen with 15 L per high flow and 100% nonrebreather mask #2. History of paroxysmal atrial fibrillation, currently in sinus rhythm #3. Hypovolemic hyponatremia, improved with hydration #4. Increased d-dimer, related to acute COVID 19 #5. Increased transaminases related to acute viral pneumonia. Ultrasound abdomen was completed showing multiple gallbladder stones, however total bilirubin level is normal at 0.5 #6. Increased d-dimer due to acute COVID 19 related infection Plan: Plan dated 10/07/2020. We are long discussion with the patient about CODE STATUS and intubation with mechanical ventilation. Surprisingly, she does not want to be intubated. The patient will be given some additional sedatives, to see if we can calm her down a bit. Despite including narcotics, and/or Ativan, and or dexmedetomidine. Additional recommendations and suggestions are forthcoming. Prognosis is poor. We will continue to follow the patient and make recommendations were appropriate. Time with Patient: Greater than 30
[2020-10-07] MEDS: LORATADINE 10 MG TAB PO SCH (15:10)
[2020-10-07] MEDS: METOPROLOL TARTRATE 25 MG TAB PO SCH (15:10)
[2020-10-07] MEDS: SODIUM CHLORIDE 0.9% 1,000 ML IV SCH (15:11)
--- NOTE | 2020-10-07 15:42 | P.PN ---
Progress Note - Text Progress Note Date: 10/07/20 Presenting complaint Shortness of breath History of presenting complaint Patient is a 60-year-old female, follows with Dr. Herberth Hurd, with no known past medical history who presented to the ER secondary to shortness of breath and cough. She was diagnosed with COVID 19 on 09/23/20. In the ER she was saturating 85% on room air and was found to be in A. fib with RVR and heart rates 120 to 130. Initial labs showed d-dimer of 1.77, lymphocytes 0.5, sodium 132, carbon dioxide 19, BUN 25, AST 122, ALT 47, LDH 2894, and CRP to exceed 8.2. She was admitted and was started on Decadron. She was outside of the window for Remdesivir. She was started on a Cardizem drip as well as metoprolol orally for her A. fib. She was also started on a heparin drip. She's given fluids for her hyponatremia. Pulmonary was consulted. She was requiring a nonrebreather on admission and overnight on 10/03 she was requiring maximal therapy through an air follow along with her nonrebreather to maintain low normal O2 sats. She converted to normal sinus rhythm and her Cardizem drip was stopped. Cardiology was consulted for her A. fib. She was subsequently transferred to the ICU. She had reported some leg pain and venous Dopplers were negative in bilateral lower extremities heparin drip was stopped and she had converted to normal sinus mechanism and she was subsequently started on prophylactic Lovenox. Echocardiogram showed ejection fraction 55-60% with moderate LVH. She was unable to tolerated AIRVO and was started on BiPap. Today: ICU-on BiPAP with a setting of 18/6/100%. Awake. Tired. Telemetry - sinus rhythm. Poor oral intake because of shortness of breath. CODE STATUS changed to DO NOT INTUBATE Review of systems: Was done for constitutional, cardiovascular, GI, pulmonary. relevant finding as above Active Medications Acetaminophen (Acetaminophen Tab 325 Mg Tab) 650 mg PO Q6HR PRN PRN Reason: Mild Pain or Fever > 100.5 Hydrocodone Bitart/Acetaminophen (Hydrocodone/Apap 5-325mg 1 Each Tab) 1 each PO Q6HR PRN PRN Reason: Pain Last Admin: 10/03/20 09:19 Dose: 1 each Documented by: Albuterol Sulfate (Albuterol Hfa Inhaler) 2 puff INHALATION RT-Q4H [facility] Last Admin: 10/07/20 11:36 Dose: 2 puff Documented by: Albuterol Sulfate (Albuterol Hfa Inhaler) 2 puff INHALATION RT-QID PRN PRN Reason: Shortness Of Breath Or Wheezing Ascorbic Acid (Ascorbic Acid 500 Mg Tab) 1,000 mg PO DAILY [facility] Last Admin: 10/07/20 10:01 Dose: Not Given Documented by: Cholecalciferol (Cholecalciferol 25 Mcg (1000 Iu) Tablet) 100 mcg PO DAILY [facility] Last Admin: 10/07/20 10:02 Dose: Not Given Documented by: Dexamethasone Sodium Phosphate (Dexamethasone Sod Phosphate 10 Mg/Ml 1 Ml Vial) 6 mg IV DAILY [facility] Last Admin: 10/07/20 10:58 Dose: 6 mg Documented by: Enoxaparin Sodium (Enoxaparin 60 Mg/0.6 Ml Syringe) 60 mg SQ Q12HR [facility] Last Admin: 10/07/20 11:15 Dose: 60 mg Documented by: Famotidine (Famotidine 20 Mg/2 Ml Vial) 20 mg IV BID [facility] Last Admin: 10/07/20 10:58 Dose: 20 mg Documented by: Fluticasone Propionate (Fluticasone 50mcg/[place] Nasal 16gm) 2 spray EA NOSTRIL DAILY [facility] Last Admin: 10/07/20 10:02 Dose: Not Given Documented by: Sodium Chloride (Saline 0.9%) 1,000 mls @ 25 mls/hr IV .Q24H [facility] Last Admin: 10/07/20 15:11 Dose: Not Given Documented by: Dexmedetomidine HCl 400 mcg/ (IV Solution) 100 mls @ 0 mls/hr IV .Q0M [facility]; Protocol Stop: 10/08/20 09:48 Last Admin: 10/07/20 15:36 Dose: 0.7 mcg/kg/hr, 21.753 mls/hr Documented by: Loratadine (Loratadine 10 Mg Tab) 10 mg PO DAILY [facility] Last Admin: 10/07/20 15:10 Dose: Not Given Documented by: Metoprolol Tartrate (Metoprolol Tartrate 25 Mg Tab) 75 mg PO BID [facility] Last Admin: 10/07/20 15:10 Dose: Not Given Documented by: Morphine Sulfate (Morphine Sulfate 2 Mg/Ml Syringe) 2 mg IVP Q4H PRN PRN Reason: anxiety Last Admin: 10/07/20 09:25 Dose: 2 mg Documented by: Naloxone HCl (Naloxone 0.4 Mg/Ml 1 Ml Vial) 0.2 mg IV Q2M PRN PRN Reason: Opioid Reversal Ondansetron HCl (Ondansetron 4 Mg/2 Ml Vial) 4 mg IVP Q8HR PRN PRN Reason: Nausea And Vomiting Zinc Sulfate (Zinc Sulfate 220 Mg Cap) 220 mg PO DAILY [facility] Last Admin: 10/07/20 10:02 Dose: Not Given Documented by: On examination: VITAL SIGNS: 98.7, 89, 41, 161/103, 87% on BiPAP 100% GENERAL APPEARANCE: Reclining in bed with BiPAP, tired awake RESPIRATORY: Respiratory effort increased. Accessory muscles working NEUROLOGICAL: Cranial nerves grossly intact. Moving all 4 limbs PSYCHIATRY: Alert and oriented x3. Mood and affect tired. Rest of the exam per pulmonary and nursing Investigations: October 07: WBC 13.3 hemoglobin 14 platelets 195 potassium 4.8 creatinine 0.78. ABG: E87.46, pCO2 43, pO2 66 CRP 17.1 October 06: WBC 7.4 hemoglobin 13.2 platelets 238 d-dimer 22.8 potassium 5.3 creatinine 0.8 CRP 25.1 Abdominal ultrasound limited: Very limited exam. Possible gallstones. October 05: WBC 5.3 hemoglobin 12.9 platelets 260 d-dimer 3.65 potassium 4.9 creatinine 0.81 CRP 45.6 Chest x-ray film personally reviewed by me-[October 05]: Bilateral infiltrates more so in the lower zone Lower extremity Doppler ultrasound: Negative for DVT 2-D echocardiogram: Concentric LVH, EF 55-60% Admission labs: D-dimer 1.77 CRP 68.2 Assessment and plan: COVID 19 pneumonia with acute hypoxic respiratory failure, slow to respond -Continue with Decadron, Zinc, vitamin C, vitamin D, Lovenox [ Convolescent Plasma 10/03, Toci X 1 on 10/03 ] Acute hypoxic respiratory failure secondary to COVID 19 pneumonia, slow to respond -Patient on 100% BiPAP Paroxysmal atrial fibrillation, currently in normal sinus rhythm -Seen by cardiology. Continue with metoprolol Transaminitis likely secondary to illness -Follow liver enzymes. ultrasound: Poor quality. Gallstones, asymptomatic Hyponatremia secondary decreased solute intake in addition to water. -Corrected Morbid obesity with BMI 41 -Structured outpatient weight loss Patient remains critically ill. Prognosis guarded. Follow-up with motel operator
[2020-10-07 17:47] LABS: Glucose,Whole Blood 145 mg/dL (75-99)
[2020-10-07] MEDS ORDERED: propofoL 100 ML IV ONE (21:22)
[2020-10-07 21:41] LABS: Ferritin 1607.3 ng/mL (10.0-291.0)
[2020-10-07] MEDS ORDERED: PROPOFOL 10 MG/ML 20 ML VIAL IV ONE (22:30)
[2020-10-07] MEDS ORDERED: SUCCINYLCHOLINE CHLORIDE VIAL 200 MG/10 ML VIAL IV ONE (22:30)
[2020-10-07 22:42] LABS: ABG Base Excess 2.4 mmol/L; ABG HCO3 28 mmol/L (21-25); ABG PCO2 51 mmHg (35-45); ABG PH 7.35 (7.35-7.45); ABG PO2 63 mmHg (83-108); ABG TCO2 30 mmol/L (19-24); Allen Test Performed? Yes
[2020-10-07] MEDS ORDERED: CISATRACURIUM 2 MG/ML 5 ML VIAL IV ONE (23:41)
--- NOTE | 2020-10-07 23:41 | XR ---
EXAMINATION TYPE: XR chest 1V portable DATE OF EXAM: 10/07/2020 COMPARISON: 10/07/2020 HISTORY: Check tube placement TECHNIQUE: Single view FINDINGS: There is endotracheal tube 8 cm from the satish. There is pulmonary interstitial edema. Hea rt size is fairly normal. There are chest leads. IMPRESSION: Moderate pulmonary edema is unchanged compared to exam this morning.
[2020-10-07] MEDS: CISATRACURIUM 200 MG in SODIUM CHLORIDE 0.9% 180 ML IV SCH (23:57)
[2020-10-08 01:11] LABS: ABG Base Excess -0.4 mmol/L; ABG HCO3 28 mmol/L (21-25); ABG PO2 110 mmHg (83-108); ABG TCO2 30 mmol/L (19-24)
[2020-10-08 01:13] LABS: ABG PH 7.18 (7.35-7.45)
[2020-10-08 01:14] LABS: ABG PCO2 75 mmHg (35-45); Allen Test Performed? no
[2020-10-08] MEDS: METOPROLOL TARTRATE 25 MG TAB PO SCH ×3 (01:17→13:37)
[2020-10-08] MEDS: ALBUTEROL HFA INHALER INHALATION SCH ×5 (03:25→21:23)
[2020-10-08 04:48] LABS: Glucose,Whole Blood 124 mg/dL (75-99)
[2020-10-08 05:18] LABS: Basophils # (A) 0.1 k/uL (0-0.2); Basophils % (A) 0 %; Eosinophils % (A) 0 %; HCT 40.5 % (34.0-46.0); HGB 13.8 gm/dL (11.4-16.0); Lymphocytes # (A) 0.5 k/uL (1.0-4.8); Lymphocytes % (A) 3 %; MCH 29.7 pg (25.0-35.0); MCHC 34.1 g/dL (31.0-37.0); MCV 87.1 fL (80.0-100.0); Mean Platelet Volume 8.1; Monocytes # (A) 0.2 k/uL (0-1.0); Monocytes % (A) 2 %; Neutrophils # (A) 14.7 k/uL (1.3-7.7); Neutrophils % (A) 94 %; Platelet Count 143 k/uL (150-450); RBC 4.66 m/uL (3.80-5.40); RDW 13.8 % (11.5-15.5); WBC 15.6 k/uL (3.8-10.6)
[2020-10-08 05:41] LABS: ABG Base Excess -0.6 mmol/L; ABG HCO3 27 mmol/L (21-25); ABG Oxygen Saturation 99.4 % (94-97); ABG PCO2 70 mmHg (35-45); ABG PO2 254 mmHg (83-108); ABG TCO2 30 mmol/L (19-24)
[2020-10-08 05:41] LABS: Albumin 3.2 g/dL (3.5-5.0); Calcium 7.3 mg/dL (8.4-10.2); Potassium 5.3 mmol/L (3.5-5.1); Total Bilirubin 0.6 mg/dL (0.2-1.3); Total Protein 5.9 g/dL (6.3-8.2)
[2020-10-08 05:53] LABS: Allen Test Performed? no
--- NOTE | 2020-10-08 09:00 | P.PN ---
Subjective Progress Note Date: 10/08/20 Principal diagnosis: Cardiac arrhythmia This is a 60-year-old gentleman who was admitted to the hospital with COVID-19 infection and we consulted to see the patient for paroxysmal supraventricular tachycardia and also brief episode of atrial fibrillation with RVR. The patient was seen today October [id number]. The patient continues to be intubated on mechanical ventilation be hemodynamically she is stable. She is on metoprolol and she has been maintaining normal sinus mechanism. From the cardiovascular standpoint of view, we'll continue the current medical regimen and will follow-up with the patient on when necessary case Objective - Vital Signs Vital signs: Vital Signs Temp 98.1 F 10/08/20 04:00 Pulse 92 10/08/20 07:00 Resp 30 H 10/08/20 07:00 BP 134/76 10/08/20 07:00 Pulse Ox 93 L 10/08/20 07:00 Intake & Output 10/07/20 10/08/20 10/08/20 18:59 06:59 18:59 Intake Total 630.671 6534.449 92.479 Output Total 382 700 Balance -75.705 1673.449 92.479 Weight 124.1 kg Intake: IV 240 2220 0.9 240 2220 Intake, IV Titration 66.295 153.449 92.479 Amount Dexmedetomidine/0.9% NaCl 66.295 (Pmx) 400 mcg In Empty Bag 1 bag @ Titrate IV . Q0M [facility] Rx#:[id number] propofoL 1,000 mg In 153.449 92.479 Empty Bag 1 bag @ Titrate IV .Q0M [facility] Rx#: [id number] Output: Urine 382 700 Other: Voiding Method Indwelling Catheter Indwelling Catheter # Voids 0 ABP, PAP, CO, CI - Last Documented Arterial Blood Pressure 128/62 - Labs CBC & Chem 7: 10/08/20 04:45 10/08/20 04:45 Labs: Abnormal Lab Results - Last 24 Hours (Table) 10/07/20 10/07/20 10/07/20 Range/Units 05:07 09:18 11:53 WBC (3.8-10.6) k/uL Plt Count (150-450) k/uL Neutrophils # (1.3-7.7) k/uL Lymphocytes # (1.0-4.8) k/uL ABG pH 7.46 H (7.35-7.45) ABG pCO2 (35-45) mmHg ABG pO2 66 L (83-108) mmHg ABG HCO3 30 H (21-25) mmol/L ABG Total CO2 32 H (19-24) mmol/L ABG O2 Saturation 93.4 L (94-97) % Potassium (3.5-5.1) mmol/L Chloride (98-107) mmol/L BUN (7-17) mg/dL Glucose (74-99) mg/dL POC Glucose (mg/dL) 125 H (75-99) mg/dL Calcium (8.4-10.2) mg/dL Ferritin 1607.3 H (10.0-291.0) ng/mL AST (14-36) U/L ALT (4-34) U/L Alkaline Phosphatase (38-126) U/L Total Protein (6.3-8.2) g/dL Albumin (3.5-5.0) g/dL 10/07/20 10/07/20 10/08/20 Range/Units 17:45 22:38 01:09 WBC (3.8-10.6) k/uL Plt Count (150-450) k/uL Neutrophils # (1.3-7.7) k/uL Lymphocytes # (1.0-4.8) k/uL ABG pH 7.18 L* (7.35-7.45) ABG pCO2 51 H 75 H* (35-45) mmHg ABG pO2 63 L 110 H (83-108) mmHg ABG HCO3 28 H 28 H (21-25) mmol/L ABG Total CO2 30 H 30 H (19-24) mmol/L ABG O2 Saturation 89.0 L (94-97) % Potassium (3.5-5.1) mmol/L Chloride (98-107) mmol/L BUN (7-17) mg/dL Glucose (74-99) mg/dL POC Glucose (mg/dL) 145 H (75-99) mg/dL Calcium (8.4-10.2) mg/dL Ferritin (10.0-291.0) ng/mL AST (14-36) U/L ALT (4-34) U/L Alkaline Phosphatase (38-126) U/L Total Protein (6.3-8.2) g/dL Albumin (3.5-5.0) g/dL 10/08/20 10/08/20 10/08/20 Range/Units 04:45 04:45 04:46 WBC 15.6 H (3.8-10.6) k/uL Plt Count 143 L (150-450) k/uL Neutrophils # 14.7 H (1.3-7.7) k/uL Lymphocytes # 0.5 L (1.0-4.8) k/uL ABG pH (7.35-7.45) ABG pCO2 (35-45) mmHg ABG pO2 (83-108) mmHg ABG HCO3 (21-25) mmol/L ABG Total CO2 (19-24) mmol/L ABG O2 Saturation (94-97) % Potassium 5.3 H (3.5-5.1) mmol/L Chloride 111 H (98-107) mmol/L BUN 48 H (7-17) mg/dL Glucose 132 H (74-99) mg/dL POC Glucose (mg/dL) 124 H (75-99) mg/dL Calcium 7.3 L (8.4-10.2) mg/dL Ferritin (10.0-291.0) ng/mL AST 124 H (14-36) U/L ALT 69 H (4-34) U/L Alkaline Phosphatase 206 H (38-126) U/L Total Protein 5.9 L (6.3-8.2) g/dL Albumin 3.2 L (3.5-5.0) g/dL 10/08/20 Range/Units 05:39 WBC (3.8-10.6) k/uL Plt Count (150-450) k/uL Neutrophils # (1.3-7.7) k/uL Lymphocytes # (1.0-4.8) k/uL ABG pH 7.20 L (7.35-7.45) ABG pCO2 70 H (35-45) mmHg ABG pO2 254 H (83-108) mmHg ABG HCO3 27 H (21-25) mmol/L ABG Total CO2 30 H (19-24) mmol/L ABG O2 Saturation 99.4 H (94-97) % Potassium (3.5-5.1) mmol/L Chloride (98-107) mmol/L BUN (7-17) mg/dL Glucose (74-99) mg/dL POC Glucose (mg/dL) (75-99) mg/dL Calcium (8.4-10.2) mg/dL Ferritin (10.0-291.0) ng/mL AST (14-36) U/L ALT (4-34) U/L Alkaline Phosphatase (38-126) U/L Total Protein (6.3-8.2) g/dL Albumin (3.5-5.0) g/dL Microbiology - Last 24 Hours (Table) 10/02/20 15:15 Blood Culture - Preliminary Blood No Growth after 120 hours 10/02/20 14:48 Blood Culture - Preliminary Blood No Growth after 120 hours Assessment and Plan Assessment: Assessment #1 COVID-19 infection #2 acute hypoxic respiratory failure #3 paroxysmal atrial fibrillation with only 1 brief episode #4 multiple comorbid conditions Plan #1 continue the current medical regimen including the current dose of metoprolol #2 we'll follow-up with the patient on when necessary
--- NOTE | 2020-10-08 09:21 | XR ---
EXAMINATION TYPE: XR chest 1V portable DATE OF EXAM: 10/08/2020 Comparison: 10/07/2020 Clinical History: 60-year-old female Tube placement Findings: The extreme apices are cut off and excluded from the [id number]. ET tube tip at the level of the m edial clavicular heads. NG tube courses below the diaphragm. Heart normal size. Diffuse groundglass o pacities persist but show some improvement from prior. Impression: Diffuse bilateral groundglass opacities persistent but show slight improvement from prior. The extrem e apices are cut off.
--- NOTE | 2020-10-08 09:53 | XR ---
EXAMINATION TYPE: XR chest 1V portable DATE OF EXAM: 10/08/2020 COMPARISON: 10/08/2020 HISTORY: SOB, Follow Up FINDINGS: Indwelling tubes and catheters are unchanged. Diffuse bilateral infiltrates unchanged. Stable appearance of the cardio-mediastinal structures at this time. Pleural effusion unchanged. IMPRESSION: 1. Diffuse bilateral infiltrates unchanged.Clinical correlation and follow up until resolution is re commended.
[2020-10-08] MEDS: CHLORHEXIDINE GLUCONATE 15 ML CUP MUCOUS MEM SCH ×2 (10:01→20:05)
[2020-10-08] MEDS: LORATADINE 10 MG TAB PO SCH (10:05)
[2020-10-08] MEDS: ASCORBIC ACID 500 MG TAB PO SCH (10:05)
[2020-10-08] MEDS: FAMOTIDINE 20 MG/2 ML VIAL IV SCH ×2 (10:05→20:06)
[2020-10-08] MEDS: CHOLECALCIFEROL 25 MCG (1000 IU) TABLET PO SCH (10:05)
[2020-10-08] MEDS: ZINC SULFATE 220 MG CAP PO SCH (10:05)
[2020-10-08] MEDS: DEXAMETHASONE SOD PHOSPHATE 10 MG/ML 1 ML VIAL IV SCH (10:22)
[2020-10-08] MEDS: ENOXAPARIN 60 MG/0.6 ML SYRINGE SQ SCH ×2 (10:38→20:47)
[2020-10-08] MEDS: FLUTICASONE 50MCG/SPRAY NASAL 16GM EA NOSTRIL SCH (10:38)
--- NOTE | 2020-10-08 10:50 | P.PN ---
Subjective Progress Note Date: 10/08/20 Principal diagnosis: Hypoxemic respiratory failure. On 10/05/2020 and patient seen in follow-up in the intensive care unit. She remains on BiPAP support with pressures of 14/60 FiO2 of 100% with a pulse ox between 90-97%, afebrile, a bit hypertensive, with systolic between 160-180 and diastolic in 90-100. Patient is status post Tocilizumab 800 mg IV piggyback infusion on 10/03/2020 and she has received 1 unit of convalescent plasma on 10/03/2020. Continues on Decadron 6 mg daily, Lovenox 40 mg daily, Pepcid, IV fluids 0.9 normal saline infusing at 25 ML per hour. Today's labs have been reviewed, d-dimer 3.6, B1 is 32, creatinine 0.81, CO2 is 33, the rest of the electrolytes were unremarkable, ferritin level is 1414, AST is 79, which has improved, and ALT is 41 which is relatively stable, up slightly from 39, but overall improving, LDH remains significantly elevated at 3977, CRP is 45.6. Chest x-ray shows diffuse bilateral infiltrates. On 10/07/1999 patient seen in follow-up in the intensive care unit. She remains on BiPAP support on which she is most of the time, with pressures of 14/6, 100% FiO2. Pulse ox is 95%, low-grade fevers with a temp of 99.4 axillary this morning, hemodynamically patient remains stable, not on any drips, 0.9 normal saline at 20 ML per hour, today's d-dimer is up to 22.82, and the patient was started on therapeutic doses of Lovenox 120 mg twice daily, however we will switch the patient to 0.5 mg/kg dosing twice daily. Today's inflammatory markers are continue to trend up, LDH is up to 4670, and a CK is 607, and CRP is down some to 25.1. Abdominal ultrasound was completed in view of elevated liver enzymes and it was a severely limited exam suggesting mostly a collapsed gallbladder containing multiple gallstones, bile duct measures were within normal limits. Today's chest x-ray showed diffuse pleural parenchymal changes correlating with diffuse pneumonia. Hemodynamically patient has been stable, maintaining normal sinus rhythm, echocardiogram showed normal LV function without significant valvular abnormalities, cardiology is following and has been adjusting beta blockers for better heart rate and blood pressure control. Progress note dated 10/07/2020. 60-year-old female, who was diagnosis with acute coronavirus infection, on September 23. Unfortunately, she developed acute COVID 19 pneumonia. In his been in the intensive care unit for a number of days. Currently, she is on BiPAP with settings of IPAP 14 and EPAP 6, and 100%. She is on saline at 20 mL an hour. Her respiratory status has clearly declined, and we did offer her intubation and mechanical ventilation. Unfortunately, she did not want intubation or mechanical ventilation. We did discuss this with her and her family members. Today, white count was 13.3, he lobe and 14, hematocrit 40.2, and platelet count 195,000. D-dimer is 34.10. Arterial blood gas shows a pO2 of 66, pCO2 of 43, and a pH of 7.46. Sodium 139, potassium 4.8 chloride 104, and CO2 31. Anion gap is 4, BUN 34, and creatinine 0.78. LDH is 6384. CK was 557, C-reactive protein is 17.1. N-terminal proBNP was 2180. Chest x-ray, shows diffuse bilateral infiltrates, which appear a bit worse. Progress note dated 10/08/2020. 60-year-old female, who is diagnosed with acute COVID 19 pneumonia. The patient tested positive and was diagnosed back on September 23. The patient's pneumonitis, has worsened in recent days, and the patient was on BiPAP for a number days, and 100%. Physician and nursing staff had ongoing discussions with the patient about the next step, which included intubation and mechanical ventilation, and the patient was adamant about not being placed on the mechanical ventilator. The patient's sister, apparently obtained a emergency guardianship from the court, and the patient who was initially a DO NOT INTUBATE, was then changed to a full code. As her respiratory status worsened, decision was made to go ahead and intubate the patient acting in her best interest. I did speak with the sports activities foul judge last night on the phone, and there is a hearing today at 3:00 PM. The information was given to me. A central line was placed today, as well as an arterial line, the patient remains on mechanical ventilator. We'll start tube feeds today. Her ventilator settings include a Lyme assist control mode, rate 30, tidal volume 400, FiO2 60%, PEEP 16. Arterial blood gases showed a PaO2 of 254, PaCO2 of 70, and a pH is 7.2. That blood gas was 100%, and a rate of 24. Repeat blood gases have been ordered. She's getting saline at 20 mL an hour, Nimbex at 2.4 mcg/kg/m, propofol at 40 mcg/kg/m, and she did receive some fluid resuscitation because of hypotension. 2 feedings will be started today. White count is 15.6, hemoglobin 13.8, hematocrit 40.5, and platelet count 143,000. Sodium 142, potassium 5.3, chloride 111, CO2 30, anion gap 1, BUN 48, and creatinine 0.92. Calcium is 7.3. Chest x-ray shows diffuse bilateral infiltrates. The central line is in good position. Objective - Vital Signs Vital signs: Vital Signs Temp 98.1 F 10/08/20 04:00 Pulse 96 10/08/20 09:00 Resp 30 H 10/08/20 09:00 BP 145/82 10/08/20 09:00 Pulse Ox 92 L 10/08/20 09:00 Intake & Output 10/07/20 10/08/20 10/08/20 18:59 06:59 18:59 Intake Total 036.178 0955.449 177.227 Output Total 382 700 90 Balance -75.705 1673.449 87.227 Weight 124.1 kg Intake: IV 240 2220 40 0.9 240 2220 40 Intake, IV Titration 66.295 153.449 137.227 Amount Dexmedetomidine/0.9% NaCl 66.295 (Pmx) 400 mcg In Empty Bag 1 bag @ Titrate IV . Q0M E[facility] Rx#:[id number] propofoL 1,000 mg In 153.449 137.227 Empty Bag 1 bag @ Titrate IV .Q0M EILEEN Rx#: [id number] Output: Urine 382 700 90 Other: Voiding Method Indwelling Catheter Indwelling Catheter # Voids 0 ABP, PAP, CO, CI - Last Documented Arterial Blood Pressure 117/60 - Exam The patient is currently intubated and sedated, mechanically ventilated. She is also chemically paralyzed. HEENT examination is grossly unremarkable. Oral endotracheal tube is noted. Neck supple. Full range of motion. No adenopathy thyromegaly or neck vein distention. A left internal jugular triple-lumen catheter is noted. Cardiovascular examination reveals regular rhythm rate. S1-S2 normal. No S3 or S4. No discernible murmur noted. Heart rate 96 bpm. Lungs reveal coarse bilateral rhonchi and crackles. Breath sounds equal. No wheezes. Abdomen soft bowel sounds are heard. No masses or tenderness. Extremities are intact. No cyanosis clubbing or edema. Skin is without rash or lesion. Neurologic examination could not be adequately assessed as the patient's currently sedated and paralyzed. - Labs CBC & Chem 7: 10/08/20 04:45 10/08/20 04:45 Labs: Abnormal Lab Results - Last 24 Hours (Table) 10/07/20 10/07/20 10/07/20 Range/Units 05:07 11:53 17:45 WBC (3.8-10.6) k/uL Plt Count (150-450) k/uL Neutrophils # (1.3-7.7) k/uL Lymphocytes # (1.0-4.8) k/uL ABG pH (7.35-7.45) ABG pCO2 (35-45) mmHg ABG pO2 (83-108) mmHg ABG HCO3 (21-25) mmol/L ABG Total CO2 (19-24) mmol/L ABG O2 Saturation (94-97) % Potassium (3.5-5.1) mmol/L Chloride (98-107) mmol/L BUN (7-17) mg/dL Glucose (74-99) mg/dL POC Glucose (mg/dL) 125 H 145 H (75-99) mg/dL Calcium (8.4-10.2) mg/dL Ferritin 1607.3 H (10.0-291.0) ng/mL AST (14-36) U/L ALT (4-34) U/L Alkaline Phosphatase (38-126) U/L Total Protein (6.3-8.2) g/dL Albumin (3.5-5.0) g/dL 10/07/20 10/08/20 10/08/20 Range/Units 22:38 01:09 04:45 WBC 15.6 H (3.8-10.6) k/uL Plt Count 143 L (150-450) k/uL Neutrophils # 14.7 H (1.3-7.7) k/uL Lymphocytes # 0.5 L (1.0-4.8) k/uL ABG pH 7.18 L* (7.35-7.45) ABG pCO2 51 H 75 H* (35-45) mmHg ABG pO2 63 L 110 H (83-108) mmHg ABG HCO3 28 H 28 H (21-25) mmol/L ABG Total CO2 30 H 30 H (19-24) mmol/L ABG O2 Saturation 89.0 L (94-97) % Potassium (3.5-5.1) mmol/L Chloride (98-107) mmol/L BUN (7-17) mg/dL Glucose (74-99) mg/dL POC Glucose (mg/dL) (75-99) mg/dL Calcium (8.4-10.2) mg/dL Ferritin (10.0-291.0) ng/mL AST (14-36) U/L ALT (4-34) U/L Alkaline Phosphatase (38-126) U/L Total Protein (6.3-8.2) g/dL Albumin (3.5-5.0) g/dL 10/08/20 10/08/20 10/08/20 Range/Units 04:45 04:46 05:39 WBC (3.8-10.6) k/uL Plt Count (150-450) k/uL Neutrophils # (1.3-7.7) k/uL Lymphocytes # (1.0-4.8) k/uL ABG pH 7.20 L (7.35-7.45) ABG pCO2 70 H (35-45) mmHg ABG pO2 254 H (83-108) mmHg ABG HCO3 27 H (21-25) mmol/L ABG Total CO2 30 H (19-24) mmol/L ABG O2 Saturation 99.4 H (94-97) % Potassium 5.3 H (3.5-5.1) mmol/L Chloride 111 H (98-107) mmol/L BUN 48 H (7-17) mg/dL Glucose 132 H (74-99) mg/dL POC Glucose (mg/dL) 124 H (75-99) mg/dL Calcium 7.3 L (8.4-10.2) mg/dL Ferritin (10.0-291.0) ng/mL AST 124 H (14-36) U/L ALT 69 H (4-34) U/L Alkaline Phosphatase 206 H (38-126) U/L Total Protein 5.9 L (6.3-8.2) g/dL Albumin 3.2 L (3.5-5.0) g/dL Microbiology - Last 24 Hours (Table) 10/02/20 15:15 Blood Culture - Preliminary Blood No Growth after 120 hours 10/02/20 14:48 Blood Culture - Preliminary Blood No Growth after 120 hours Assessment and Plan Assessment: #1. Acute hypoxic respiratory failure secondary to acute COVID 19 related pneumonitis, status post Tocilizumab and 1 unit of convalescent plasma on 10/03/2020, admitted to the ICU on 10/03/2020, remains on high flow oxygen with 15 L per high flow and 100% nonrebreather mask, intubated for worsening respiratory failure on 10/07/2020. #2. History of paroxysmal atrial fibrillation, currently in sinus rhythm #3. Hypovolemic hyponatremia, improved with hydration #4. Increased d-dimer, related to acute COVID 19 #5. Increased transaminases related to acute viral pneumonia. Ultrasound abdomen was completed showing multiple gallbladder stones, however total bilirubin level is normal at 0.5 Plan: Plan dated 10/07/2020. We are long discussion with the patient about CODE STATUS and intubation with mechanical ventilation. Surprisingly, she does not want to be intubated. The patient will be given some additional sedatives, to see if we can calm her down a bit. Despite including narcotics, and/or Ativan, and or dexmedetomidine. Additional recommendations and suggestions are forthcoming. Prognosis is poor. We will continue to follow the patient and make recommendations were appropriate. Plan dated 10/08/2020. The patient's sister, petitioned the court for a emergency guardianship, and it was granted, and the patient was made a full code by her sister. The patient was intubated for worsening respiratory failure. The patient was adamant about not going on mechanical ventilation. We had numerous talks with her, both physicians and nurses. Currently, she remains on the mechanical ventilator. A central line and an arterial line were placed. Medications are reviewed. X- rays and labs are reviewed. We will continue to follow make appropriate recommendations were needed. Tube feedings were started today. Time with Patient: Greater than 30
[2020-10-08 12:01] LABS: ABG Base Excess 0.8 mmol/L; ABG HCO3 28 mmol/L (21-25); ABG Oxygen Saturation 95.9 % (94-97); ABG PCO2 65 mmHg (35-45); ABG PH 7.25 (7.35-7.45); ABG PO2 92 mmHg (83-108); ABG TCO2 30 mmol/L (19-24)
[2020-10-08 12:03] LABS: Allen Test Performed? no
[2020-10-08 12:35] LABS: Glucose,Whole Blood 162 mg/dL (75-99)
--- NOTE | 2020-10-08 15:46 | PCN ---
PROCEDURE NOTE PROCEDURE: Left internal jugular triple-lumen catheter. OPERATORS: Dr. Park and Dr. Evans. PREOPERATIVE DIAGNOSIS: Administration of fluids and pressures pressors. POSTOPERATIVE DIAGNOSIS: Administration of fluids and pressures pressors. There was informed consent. There was universal timeout. TRIPLE LUMEN CATHETER PLACEMENT: Indication: Hemodynamic monitoring/Intravenous access. A time-out was completed verifying correct patient, procedure, site, positioning, and implant(s) or special equipment if applicable. The patient was placed in a dependent position appropriate for triple lumen catheter placement based on the vein to be cannulated. The patient's left neck was prepped and draped in sterile fashion. 1% Lidocaine was used to anesthetize the surrounding skin area. A triple lumen 9F Cordis catheter was introduced into the left internal jugular vein using Seldinger technique. The catheter was threaded smoothly over the guide wire and appropriate blood return was obtained. Each lumen of the catheter was evacuated of air and flushed with sterile saline. The catheter was then sutured in place to the skin and a sterile dressing applied. Perfusion to the extremity distal to the point of catheter insertion was checked and found to be adequate. The patient tolerated procedure well. There was good return from all 3 ports. The catheter was sutured in place. Sterile dressing was applied by the nurse. A chest x- ray was ordered. The tip of the catheter was seen in the right atrium. There was no immediate complication. MMODL / IJN: [id number] /
[2020-10-08] MEDS: ARTIFICIAL TEARS-HYPROMELLOSE DROPS 15 ML BTL BOTH EYES SCH ×3 (16:37→23:47)
[2020-10-08] MEDS: SODIUM CHLORIDE 0.9% 1,000 ML IV SCH (16:38)
[2020-10-08] MEDS: CISATRACURIUM 200 MG in SODIUM CHLORIDE 0.9% 180 ML IV SCH (18:53)
[2020-10-08] MEDS ORDERED: METOPROLOL TARTRATE 25 MG TAB PO SCH (21:00)
--- NOTE | 2020-10-08 21:11 | P.PN ---
Progress Note - Text Progress Note Date: 10/08/20 Presenting complaint Shortness of breath History of presenting complaint Patient is a 60-year-old female, follows with Dr. Herberth Hurd, with no known past medical history who presented to the ER secondary to shortness of breath and cough. She was diagnosed with COVID 19 on 09/23/20. In the ER she was saturating 85% on room air and was found to be in A. fib with RVR and heart rates 120 to 130. Initial labs showed d-dimer of 1.77, lymphocytes 0.5, sodium 132, carbon dioxide 19, BUN 25, AST 122, ALT 47, LDH 2894, and CRP to exceed 8.2. She was admitted and was started on Decadron. She was outside of the window for Remdesivir. She was started on a Cardizem drip as well as metoprolol orally for her A. fib. She was also started on a heparin drip. She's given fluids for her hyponatremia. Pulmonary was consulted. She was requiring a nonrebreather on admission and overnight on 10/03 she was requiring maximal therapy through an air follow along with her nonrebreather to maintain low normal O2 sats. She converted to normal sinus rhythm and her Cardizem drip was stopped. Cardiology was consulted for her A. fib. She was subsequently transferred to the ICU. She had reported some leg pain and venous Dopplers were negative in bilateral lower extremities heparin drip was stopped and she had converted to normal sinus mechanism and she was subsequently started on prophylactic Lovenox. Echocardiogram showed ejection fraction 55-60% with moderate LVH. She was unable to tolerated AIRVO and was started on BiPap. Patient opted to change her CODE STATUS to DO NOT INTUBATE Today: ICU-last night patient respiratory status declined. Patient's sister obtained an emergency guardianship through the court and after she discussed with Dr. Park he decided to intubate the patient. This morning patient is on propofol and Nimbex. But the FiO2 60 the pupil 16. I did get a call from the nurse and also from the high school social studies teacher for request for transfer to it was to [place] per sister and policy change clerk Dr. Park for ECMO. I did speak to the admitting office of the day policy change clerk , home with home I discussed the case at length. He said that the patient was not a candidate for transfer and can be managed here. I did give him Dr. Park's cell number for further conversation regarding his advice outpatient and managed here. Total time spent today in the case with about 75 minutes with about 45 minutes of discussion. Review of systems: Patient intubated Active Medications Acetaminophen (Acetaminophen Tab 325 Mg Tab) 650 mg PO Q6HR PRN PRN Reason: Mild Pain or Fever > 100.5 Albuterol Sulfate (Albuterol Hfa Inhaler) 2 puff INHALATION RT-Q4H [facility] Last Admin: 10/08/20 15:35 Dose: 2 puff Documented by: Albuterol Sulfate (Albuterol Hfa Inhaler) 2 puff INHALATION RT-QID PRN PRN Reason: Shortness Of Breath Or Wheezing Artificial Tears (Artificial Tears-Hypromellose Drops 15 Ml Btl) 2 drops BOTH EYES Q4H [facility] Last Admin: 10/08/20 20:07 Dose: 2 drops Documented by: Ascorbic Acid (Ascorbic Acid 500 Mg Tab) 1,000 mg PO DAILY [facility] Last Admin: 10/08/20 10:05 Dose: 1,000 mg Documented by: Chlorhexidine Gluconate (Chlorhexidine Gluconate 15 Ml Cup) 15 ml MUCOUS MEM BID [facility] Last Admin: 10/08/20 20:05 Dose: 15 ml Documented by: Cholecalciferol (Cholecalciferol 25 Mcg (1000 Iu) Tablet) 100 mcg PO DAILY [facility] Last Admin: 10/08/20 10:05 Dose: 100 mcg Documented by: Dexamethasone Sodium Phosphate (Dexamethasone Sod Phosphate 10 Mg/Ml 1 Ml Vial) 6 mg IV DAILY [facility] Last Admin: 10/08/20 10:22 Dose: 6 mg Documented by: Enoxaparin Sodium (Enoxaparin 60 Mg/0.6 Ml Syringe) 60 mg SQ Q12HR [facility] Last Admin: 10/08/20 20:47 Dose: 60 mg Documented by: Famotidine (Famotidine 20 Mg/2 Ml Vial) 20 mg IV BID [facility] Last Admin: 10/08/20 20:06 Dose: 20 mg Documented by: Sodium Chloride (Saline 0.9%) 1,000 mls @ 25 mls/hr IV .Q24H [facility] Last Admin: 10/08/20 16:38 Dose: 25 mls/hr Documented by: Propofol 1,000 mg/ IV Solution 100 mls @ 0 mls/hr IV .Q0M [facility]; Protocol Last Admin: 10/08/20 20:05 Dose: 40 mcg/kg/min, 29.832 mls/hr Documented by: Cisatracurium Besylate 200 mg/ (Sodium Chloride) 200 mls @ 14.916 mls/hr IV .[id number] [facility]; Protocol Last Admin: 10/08/20 18:53 Dose: 2 mcg/kg/min, 14.916 mls/hr Documented by: Metoprolol Tartrate (Metoprolol Tartrate 25 Mg Tab) 25 mg PO BID [facility] Last Admin: 10/08/20 20:05 Dose: 25 mg Documented by: Morphine Sulfate (Morphine Sulfate 2 Mg/Ml Syringe) 2 mg IVP Q4H PRN PRN Reason: anxiety Last Admin: 10/07/20 22:17 Dose: 2 mg Documented by: Naloxone HCl (Naloxone 0.4 Mg/Ml 1 Ml Vial) 0.2 mg IV Q2M PRN PRN Reason: Opioid Reversal Ondansetron HCl (Ondansetron 4 Mg/2 Ml Vial) 4 mg IVP Q8HR PRN PRN Reason: Nausea And Vomiting Zinc Sulfate (Zinc Sulfate 220 Mg Cap) 220 mg PO DAILY [facility] Last Admin: 10/08/20 10:05 Dose: 220 mg Documented by: On examination: VITAL SIGNS: 99.1, 98, 30, 140/77, 93% on the ventilator GENERAL APPEARANCE: Sedated, intubated RESPIRATORY: Respiratory effort increased. Accessory muscles working Rest of the exam per pulmonary and nursing Investigations: October 08: WBC 15.6 hemoglobin 13.8 which is 143. ABG pH 7.25 pCO2 65 pO2 92. Potassium 5.3 creatinine 0.9 to October 07: WBC 13.3 hemoglobin 14 platelets 195 potassium 4.8 creatinine 0.78. ABG: E87.46, pCO2 43, pO2 66 CRP 17.1 October 06: WBC 7.4 hemoglobin 13.2 platelets 238 d-dimer 22.8 potassium 5.3 creatinine 0.8 CRP 25.1 Abdominal ultrasound limited: Very limited exam. Possible gallstones. October 05: WBC 5.3 hemoglobin 12.9 platelets 260 d-dimer 3.65 potassium 4.9 creatinine 0.81 CRP 45.6 Chest x-ray film personally reviewed by me-[October 05]: Bilateral infiltrates more so in the lower zone Lower extremity Doppler ultrasound: Negative for DVT 2-D echocardiogram: Concentric LVH, EF 55-60% Admission labs: D-dimer 1.77 CRP 68.2 Assessment and plan: COVID 19 pneumonia with acute hypoxic respiratory failure, worsening -Continue with Decadron, Zinc, vitamin C, vitamin D, Lovenox [ Convolescent Plasma 10/03, Toci X 1 on 10/03 ] Acute hypoxic respiratory failure secondary to COVID 19 pneumonia, worsening overnight. Patient wishes were to DO NOT INTUBATE. Patient's sister opted emergency temporary guardianship from Court overnight and after discussion with Dr. Park patient is intubated/ventilator dependent Paroxysmal atrial fibrillation, currently in normal sinus rhythm -Seen by cardiology. Continue with metoprolol Transaminitis likely secondary to illness -Follow liver enzymes. ultrasound: Poor quality. Gallstones, asymptomatic Hyponatremia secondary decreased solute intake in addition to water. -Corrected Morbid obesity with BMI 41 -Structured outpatient weight loss Patient had a court hearing at 3:00 for guardianship. Continue current medication. Plan. I did discuss with Dr. Park this afternoon. I wanted to the represent the patient at 3 PM at the hearing but Dr. Park is already going to be there, so he decided not to do the same . Continue current medication treatment plan
[2020-10-09] MEDS: ALBUTEROL HFA INHALER INHALATION SCH ×6 (01:25→20:21)
[2020-10-09] MEDS ORDERED: METOPROLOL TARTRATE 5 MG/5 ML VIAL IVP STA (02:28)
[2020-10-09] MEDS ORDERED: AMIODARONE 360 MG in DEXTROSE 5% IN WATER 200 ML IV ONE ×2 (02:30)
[2020-10-09] MEDS ORDERED: METOPROLOL TARTRATE 5 MG/5 ML VIAL IVP ONE (02:32)
[2020-10-09] MEDS: CISATRACURIUM 200 MG in SODIUM CHLORIDE 0.9% 180 ML IV SCH (03:18)
[2020-10-09] MEDS: ARTIFICIAL TEARS-HYPROMELLOSE DROPS 15 ML BTL BOTH EYES SCH ×5 (03:19→20:57)
[2020-10-09 05:21] LABS: ABG Base Excess 5.9 mmol/L; ABG HCO3 32 mmol/L (21-25); ABG Oxygen Saturation 94.3 % (94-97); ABG PCO2 67 mmHg (35-45); ABG PH 7.29 (7.35-7.45); ABG PO2 75 mmHg (83-108); ABG TCO2 35 mmol/L (19-24); Allen Test Performed? Yes
[2020-10-09 06:50] LABS: C Reactive Protein 17.6 mg/L (<10.0); Calcium 7.7 mg/dL (8.4-10.2); Potassium 5.3 mmol/L (3.5-5.1)
[2020-10-09 07:02] LABS: Basophils # (A) 0.1 k/uL (0-0.2); Basophils % (A) 1 %; Eosinophils # (A) 0.1 k/uL (0-0.7); Eosinophils % (A) 1 %; HCT 38.8 % (34.0-46.0); HGB 12.8 gm/dL (11.4-16.0); Lymphocytes # (A) 0.4 k/uL (1.0-4.8); Lymphocytes % (A) 3 %; MCH 28.9 pg (25.0-35.0); MCHC 32.9 g/dL (31.0-37.0); MCV 87.8 fL (80.0-100.0); Monocytes # (A) 0.2 k/uL (0-1.0); Monocytes % (A) 2 %; Neutrophils % (A) 94 %; Platelet Count 127 k/uL (150-450); RBC 4.42 m/uL (3.80-5.40); RDW 14.4 % (11.5-15.5); WBC 12.9 k/uL (3.8-10.6)
--- NOTE | 2020-10-09 08:55 | XR ---
EXAMINATION TYPE: XR chest 1V portable DATE OF EXAM: 10/09/2020 COMPARISON: 10/08/2020 HISTORY: Shortness of breath TECHNIQUE: Single frontal view of the chest is obtained. FINDINGS: ET tube, NG tube, central line stable. Diffuse interstitial infiltrate stable. Right basil ar consolidation and small effusion noted. Heart size unchanged. Atherosclerotic change aorta. Biapic al pleural thickening. No pneumothorax. IMPRESSION: Stable chest x-ray demonstrating diffuse interstitial infiltrates with right basilar con solidation and small effusion.
--- NOTE | 2020-10-09 09:00 | P.PN ---
Subjective Progress Note Date: 10/09/20 Principal diagnosis: Cardiac arrhythmia This is a 60-year-old gentleman who was admitted to the hospital with COVID-19 infection and we consulted to see the patient for paroxysmal supraventricular tachycardia and also brief episode of atrial fibrillation with RVR. The patient was seen today 10/09/2020. She did have an episode of tachycardia consistent with atrial flutter/atrial fibrillation with RVR and subsequently converted to normal sinus mechanism which she was started on amiodarone IV. Yesterday we decrease the dose of metoprolol on her. We are going to increase t he dose again to 50 mg by mouth twice a day and also switch her to amiodarone by mouth once the drip is over. Also she will be started on heparin IV for anticoagulation. Objective - Vital Signs Vital signs: Vital Signs Temp 99.0 F 10/09/20 04:00 Pulse 75 10/09/20 07:00 Resp 30 H 10/09/20 07:00 BP 109/68 10/09/20 07:00 Pulse Ox 89 L 10/09/20 07:00 Intake & Output 10/08/20 10/09/20 10/09/20 18:59 06:59 18:59 Intake Total 727.227 665.543 20 Output Total 580 1060 60 Balance 147.227 -394.457 -40 Weight 124.1 kg 123.5 kg Intake: IV 220 240 20 0.9 220 240 20 Intake, IV Titration 437.227 425.543 Amount Cisatracurium 200 mg In 200 125.543 Sodium Chloride 0.9% 180 ml @ 2 MCG/KG/MIN 14.916 mls/hr IV .[id number] [facility] Rx #:[id number] propofoL 1,000 mg In 237.227 300 Empty Bag 1 bag @ Titrate IV .Q0M E[facility] Rx#: [id number] Tube Feeding 40 Other 30 Output: Urine 580 1060 60 Other: Voiding Method Indwelling Catheter Indwelling Catheter ABP, PAP, CO, CI - Last Documented Arterial Blood Pressure 131/55 - Labs CBC & Chem 7: 10/09/20 05:50 10/09/20 05:50 Labs: Abnormal Lab Results - Last 24 Hours (Table) 10/08/20 10/08/20 10/09/20 Range/Units 11:55 12:33 05:15 WBC (3.8-10.6) k/uL Plt Count (150-450) k/uL Neutrophils # (1.3-7.7) k/uL Lymphocytes # (1.0-4.8) k/uL D-Dimer (<0.60) mg/L FEU ABG pH 7.25 L 7.29 L (7.35-7.45) ABG pCO2 65 H 67 H (35-45) mmHg ABG pO2 75 L (83-108) mmHg ABG HCO3 28 H 32 H (21-25) mmol/L ABG Total CO2 30 H 35 H (19-24) mmol/L Potassium (3.5-5.1) mmol/L Carbon Dioxide (22-30) mmol/L BUN (7-17) mg/dL Glucose (74-99) mg/dL POC Glucose (mg/dL) 162 H (75-99) mg/dL Calcium (8.4-10.2) mg/dL Lactate Dehydrogenase (313-618) U/L C-Reactive Protein (<10.0) mg/L 10/09/20 10/09/20 10/09/20 Range/Units 05:50 05:50 05:50 WBC 12.9 H (3.8-10.6) k/uL Plt Count 127 L (150-450) k/uL Neutrophils # 12.0 H (1.3-7.7) k/uL Lymphocytes # 0.4 L (1.0-4.8) k/uL D-Dimer 23.24 H (<0.60) mg/L FEU ABG pH (7.35-7.45) ABG pCO2 (35-45) mmHg ABG pO2 (83-108) mmHg ABG HCO3 (21-25) mmol/L ABG Total CO2 (19-24) mmol/L Potassium 5.3 H (3.5-5.1) mmol/L Carbon Dioxide 33 H (22-30) mmol/L BUN 49 H (7-17) mg/dL Glucose 149 H (74-99) mg/dL POC Glucose (mg/dL) (75-99) mg/dL Calcium 7.7 L (8.4-10.2) mg/dL Lactate Dehydrogenase 5465 H (313-618) U/L C-Reactive Protein 17.6 H (<10.0) mg/L Microbiology - Last 24 Hours (Table) 10/07/20 11:53 Gram Stain - Preliminary Sputum Sputum Culture - Preliminary 10/02/20 15:15 Blood Culture - Final Blood No Growth after 144 hours 10/02/20 14:48 Blood Culture - Final Blood No Growth after 144 hours Assessment and Plan Assessment: Assessment #1 COVID-19 infection #2 acute hypoxic respiratory failure #3 paroxysmal atrial fibrillation with only 1 brief episode #4 multiple comorbid conditions Plan #1 increase the dose of metoprolol #2 continue amiodarone IV and switch to amiodarone by mouth #3 start the patient on heparin IV #4 follow-up with the patient
[2020-10-09] MEDS ORDERED: HEPARIN SODIUM 1,000 UN/ML (10ML VL) IV ONE (09:09)
[2020-10-09] MEDS: FAMOTIDINE 20 MG/2 ML VIAL IV SCH ×2 (09:17→20:33)
[2020-10-09] MEDS: DEXAMETHASONE SOD PHOSPHATE 10 MG/ML 1 ML VIAL IV SCH (09:20)
[2020-10-09] MEDS: CHLORHEXIDINE GLUCONATE 15 ML CUP MUCOUS MEM SCH ×2 (09:20→20:32)
[2020-10-09] MEDS: CHOLECALCIFEROL 25 MCG (1000 IU) TABLET PO SCH (09:20)
[2020-10-09] MEDS: ASCORBIC ACID 500 MG TAB PO SCH (09:20)
[2020-10-09] MEDS: ZINC SULFATE 220 MG CAP PO SCH (09:22)
[2020-10-09] MEDS: METOPROLOL TARTRATE 50 MG TAB PO SCH ×2 (09:24→20:33)
[2020-10-09] MEDS: HEPARIN SOD,PORK IN 0.45% NACL 25,000 UNIT in 0.45% NACL 1 250ML.BAG IV SCH (09:51)
[2020-10-09 10:40] LABS: INR 1.1 (<1.2); Prothrombin Time 11.8 sec (9.0-12.0)
[2020-10-09 10:42] LABS: Partial Thromboplastin Time 20.8 sec (22.0-30.0)
[2020-10-09] MEDS: AMIODARONE 450 MG in DEXTROSE 5% IN WATER 250 ML IV SCH ×2 (10:58)
--- NOTE | 2020-10-09 11:17 | P.PN ---
Subjective Progress Note Date: 10/09/20 Principal diagnosis: Hypoxemic respiratory failure. On 10/05/2020 and patient seen in follow-up in the intensive care unit. She remains on BiPAP support with pressures of 14/60 FiO2 of 100% with a pulse ox between 90-97%, afebrile, a bit hypertensive, with systolic between 160-180 and diastolic in 90-100. Patient is status post Tocilizumab 800 mg IV piggyback infusion on 10/03/2020 and she has received 1 unit of convalescent plasma on 10/03/2020. Continues on Decadron 6 mg daily, Lovenox 40 mg daily, Pepcid, IV fluids 0.9 normal saline infusing at 25 ML per hour. Today's labs have been reviewed, d-dimer 3.6, B1 is 32, creatinine 0.81, CO2 is 33, the rest of the electrolytes were unremarkable, ferritin level is 1414, AST is 79, which has improved, and ALT is 41 which is relatively stable, up slightly from 39, but overall improving, LDH remains significantly elevated at 3977, CRP is 45.6. Chest x-ray shows diffuse bilateral infiltrates. On 10/07/1999 patient seen in follow-up in the intensive care unit. She remains on BiPAP support on which she is most of the time, with pressures of 14/6, 100% FiO2. Pulse ox is 95%, low-grade fevers with a temp of 99.4 axillary this morning, hemodynamically patient remains stable, not on any drips, 0.9 normal saline at 20 ML per hour, today's d-dimer is up to 22.82, and the patient was started on therapeutic doses of Lovenox 120 mg twice daily, however we will switch the patient to 0.5 mg/kg dosing twice daily. Today's inflammatory markers are continue to trend up, LDH is up to 4670, and a CK is 607, and CRP is down some to 25.1. Abdominal ultrasound was completed in view of elevated liver enzymes and it was a severely limited exam suggesting mostly a collapsed gallbladder containing multiple gallstones, bile duct measures were within normal limits. Today's chest x-ray showed diffuse pleural parenchymal changes correlating with diffuse pneumonia. Hemodynamically patient has been stable, maintaining normal sinus rhythm, echocardiogram showed normal LV function without significant valvular abnormalities, cardiology is following and has been adjusting beta blockers for better heart rate and blood pressure control. Progress note dated 10/07/2020. 60-year-old female, who was diagnosis with acute coronavirus infection, on September 23. Unfortunately, she developed acute COVID 19 pneumonia. In his been in the intensive care unit for a number of days. Currently, she is on BiPAP with settings of IPAP 14 and EPAP 6, and 100%. She is on saline at 20 mL an hour. Her respiratory status has clearly declined, and we did offer her intubation and mechanical ventilation. Unfortunately, she did not want intubation or mechanical ventilation. We did discuss this with her and her family members. Today, white count was 13.3, he lobe and 14, hematocrit 40.2, and platelet count 195,000. D-dimer is 34.10. Arterial blood gas shows a pO2 of 66, pCO2 of 43, and a pH of 7.46. Sodium 139, potassium 4.8 chloride 104, and CO2 31. Anion gap is 4, BUN 34, and creatinine 0.78. LDH is 6384. CK was 557, C-reactive protein is 17.1. N-terminal proBNP was 2180. Chest x-ray, shows diffuse bilateral infiltrates, which appear a bit worse. Progress note dated 10/08/2020. 60-year-old female, who is diagnosed with acute COVID 19 pneumonia. The patient tested positive and was diagnosed back on September 23. The patient's pneumonitis, has worsened in recent days, and the patient was on BiPAP for a number days, and 100%. Physician and nursing staff had ongoing discussions with the patient about the next step, which included intubation and mechanical ventilation, and the patient was adamant about not being placed on the mechanical ventilator. The patient's sister, apparently obtained a emergency guardianship from the court, and the patient who was initially a DO NOT INTUBATE, was then changed to a full code. As her respiratory status worsened, decision was made to go ahead and intubate the patient acting in her best interest. I did speak with the election judge last night on the phone, and there is a hearing today at 3:00 PM. The information was given to me. A central line was placed today, as well as an arterial line, the patient remains on mechanical ventilator. We'll start tube feeds today. Her ventilator settings include a Lyme assist control mode, rate 30, tidal volume 400, FiO2 60%, PEEP 16. Arterial blood gases showed a PaO2 of 254, PaCO2 of 70, and a pH is 7.2. That blood gas was 100%, and a rate of 24. Repeat blood gases have been ordered. She's getting saline at 20 mL an hour, Nimbex at 2.4 mcg/kg/m, propofol at 40 mcg/kg/m, and she did receive some fluid resuscitation because of hypotension. 2 feedings will be started today. White count is 15.6, hemoglobin 13.8, hematocrit 40.5, and platelet count 143,000. Sodium 142, potassium 5.3, chloride 111, CO2 30, anion gap 1, BUN 48, and creatinine 0.92. Calcium is 7.3. Chest x-ray shows diffuse bilateral infiltrates. The central line is in good position. Progress note dated 10/09/2020. 60-year-old female, with a diagnosis of acute COVID 19 pneumonia. The patient tested positive over was diagnosed back on September 23 and unfortunately, the patient's oxygenation has worsened, and she was recently intubated and placed on the mechanical ventilator. Initially, and throughout her hospitalization before intubation, the patient was adamant about not going on the mechanical ventilator. Nonetheless, she is on it now, and settings include volume assist control mode, rate 30, tidal volume 400, FiO2 60%, and PEEP 16. Blood gases show pO2 of 75, pCO2 67, and a pH of 7.29. The patient's on saline at KVO, Nimbex at 0.4 mcg/kg/m, propofol at 40 mcg/kg/m and vital high protein at 20, with a goal of 40 mL an hour. Unfortunately, last night, she developed atrial fibrillation with RVR, and hypotension. Cardiology was called. They increased her metoprolol, and place her on an amiodarone drip at 1 g/m. The beta peterson was subsequently increased, and she'll be started on oral amiodarone today, at 200 mg twice a day. Finally, she was placed on a heparin drip. White count 12.9, hemoglobin 12.8, hematocrit 38.8, platelet count 127,000. D-dimer is 23.24. Sodium 143, potassium 5.3, chlorides 107, CO2 33, anion gap 3, BUN 49, and creatinine 0.87. LDH was 5465, and C-reactive protein was 17.6. Chest x-r ay shows diffuse bilateral infiltrates. Objective - Vital Signs Vital signs: Vital Signs Temp 99.0 F 10/09/20 04:00 Pulse 75 10/09/20 07:00 Resp 30 H 10/09/20 07:00 BP 109/68 10/09/20 07:00 Pulse Ox 89 L 10/09/20 07:00 Intake & Output 10/08/20 10/09/20 10/09/20 18:59 06:59 18:59 Intake Total 727.227 665.543 120 Output Total 580 1060 60 Balance 147.227 -394.457 60 Weight 124.1 kg 123.5 kg Intake: IV 220 240 20 0.9 220 240 20 Intake, IV Titration 437.227 425.543 100 Amount Cisatracurium 200 mg In 200 125.543 Sodium Chloride 0.9% 180 ml @ 2 MCG/KG/MIN 14.916 mls/hr IV .[id number] [facility] Rx #:[id number] propofoL 1,000 mg In 237.227 300 100 Empty Bag 1 bag @ Titrate IV .Q0M [facility] Rx#: [id number] Tube Feeding 40 Other 30 Output: Urine 580 1060 60 Other: Voiding Method Indwelling Catheter Indwelling Catheter ABP, PAP, CO, CI - Last Documented Arterial Blood Pressure 131/55 - Exam The patient is currently intubated and sedated, mechanically ventilated. She is also chemically paralyzed. HEENT examination is grossly unremarkable. Oral endotracheal tube is noted. Neck supple. Full range of motion. No adenopathy thyromegaly or neck vein distention. A left internal jugular triple-lumen catheter is noted. Cardiovascular examination reveals an irregular rhythm and rate. S1-S2 normal. No S3 or S4. No discernible murmur noted. Heart rate 75 bpm. Lungs reveal coarse bilateral rhonchi and crackles. Breath sounds equal. No wheezes. Breath sounds are bit worse today. Abdomen soft bowel sounds are heard. No masses or tenderness. Extremities are intact. No cyanosis clubbing or edema. Skin is without rash or lesion. Neurologic examination could not be adequately assessed as the patient's currently sedated and paralyzed. - Labs CBC & Chem 7: 10/09/20 05:50 10/09/20 05:50 Labs: Abnormal Lab Results - Last 24 Hours (Table) 10/08/20 10/08/20 10/09/20 Range/Units 11:55 12:33 05:15 WBC (3.8-10.6) k/uL Plt Count (150-450) k/uL Neutrophils # (1.3-7.7) k/uL Lymphocytes # (1.0-4.8) k/uL APTT (22.0-30.0) sec D-Dimer (<0.60) mg/L FEU ABG pH 7.25 L 7.29 L (7.35-7.45) ABG pCO2 65 H 67 H (35-45) mmHg ABG pO2 75 L (83-108) mmHg ABG HCO3 28 H 32 H (21-25) mmol/L ABG Total CO2 30 H 35 H (19-24) mmol/L Potassium (3.5-5.1) mmol/L Carbon Dioxide (22-30) mmol/L BUN (7-17) mg/dL Glucose (74-99) mg/dL POC Glucose (mg/dL) 162 H (75-99) mg/dL Calcium (8.4-10.2) mg/dL Lactate Dehydrogenase (313-618) U/L C-Reactive Protein (<10.0) mg/L 10/09/20 10/09/20 10/09/20 Range/Units 05:50 05:50 05:50 WBC 12.9 H (3.8-10.6) k/uL Plt Count 127 L (150-450) k/uL Neutrophils # 12.0 H (1.3-7.7) k/uL Lymphocytes # 0.4 L (1.0-4.8) k/uL APTT (22.0-30.0) sec D-Dimer 23.24 H (<0.60) mg/L FEU ABG pH (7.35-7.45) ABG pCO2 (35-45) mmHg ABG pO2 (83-108) mmHg ABG HCO3 (21-25) mmol/L ABG Total CO2 (19-24) mmol/L Potassium 5.3 H (3.5-5.1) mmol/L Carbon Dioxide 33 H (22-30) mmol/L BUN 49 H (7-17) mg/dL Glucose 149 H (74-99) mg/dL POC Glucose (mg/dL) (75-99) mg/dL Calcium 7.7 L (8.4-10.2) mg/dL Lactate Dehydrogenase 5465 H (313-618) U/L C-Reactive Protein 17.6 H (<10.0) mg/L 10/09/20 Range/Units 09:46 WBC (3.8-10.6) k/uL Plt Count (150-450) k/uL Neutrophils # (1.3-7.7) k/uL Lymphocytes # (1.0-4.8) k/uL APTT 20.8 L (22.0-30.0) sec D-Dimer (<0.60) mg/L FEU ABG pH (7.35-7.45) ABG pCO2 (35-45) mmHg ABG pO2 (83-108) mmHg ABG HCO3 (21-25) mmol/L ABG Total CO2 (19-24) mmol/L Potassium (3.5-5.1) mmol/L Carbon Dioxide (22-30) mmol/L BUN (7-17) mg/dL Glucose (74-99) mg/dL POC Glucose (mg/dL) (75-99) mg/dL Calcium (8.4-10.2) mg/dL Lactate Dehydrogenase (313-618) U/L C-Reactive Protein (<10.0) mg/L Microbiology - Last 24 Hours (Table) 10/07/20 11:53 Gram Stain - Preliminary Sputum Sputum Culture - Preliminary 10/02/20 15:15 Blood Culture - Final Blood No Growth after 144 hours 10/02/20 14:48 Blood Culture - Final Blood No Growth after 144 hours Assessment and Plan Assessment: #1. Acute hypoxic respiratory failure secondary to acute COVID 19 related pneumonitis, status post Tocilizumab and 1 unit of convalescent plasma on 10/03/2020, admitted to the ICU on 10/03/2020, remains on high flow oxygen with 15 L per high flow and 100% nonrebreather mask, intubated for worsening respiratory failure on 10/07/2020. #2. History of paroxysmal atrial fibrillation, currently in sinus rhythm #3. Hypovolemic hyponatremia, improved with hydration #4. Increased d-dimer, related to acute COVID 19 #5. Increased transaminases related to acute viral pneumonia. Ultrasound abdomen was completed showing multiple gallbladder stones, however total bilirubin level is normal at 0.5 #6. Recurrent atrial fibrillation with RVR, status post metoprolol, IV amiodarone, IV heparin, and now oral amiodarone. Plan: Plan dated 10/07/2020. We are long discussion with the patient about CODE STATUS and intubation with mechanical ventilation. Surprisingly, she does not want to be intubated. The patient will be given some additional sedatives, to see if we can calm her down a bit. Despite including narcotics, and/or Ativan, and or dexmedetomidine. Additional recommendations and suggestions are forthcoming. Prognosis is poor. We will continue to follow the patient and make recommendations were appropriate. Plan dated 10/08/2020. The patient's sister, petitioned the court for a emergency guardianship, and it was granted, and the patient was made a full code by her sister. The patient was intubated for worsening respiratory failure. The patient was adamant about not going on mechanical ventilation. We had numerous talks with her, both physicians and nurses. Currently, she remains on the mechanical ventilator. A central line and an arterial line were placed. Medications are reviewed. X- rays and labs are reviewed. We will continue to follow make appropriate recommendations were needed. Tube feedings were started today. Plan dated 10/09/2020. The patient was intubated on October 07, for worsening hypoxemic respiratory failure. Last night, she developed atrial fibrillation, with RVR, and hypotension. She received increasing doses of beta peterson, IV amiodarone, IV heparin, and oral amiodarone. Currently, she remains on chemical paralysis with Nimbex, and sedation with propofol. Tube feeds will be increase to goal of 40 mL an hour. Blood gases are reasonable and 60% FiO2 and 16 of PEEP. Prognosis remains poor. Additional recommendations and suggestions are forthcoming. We'll continue to follow and make recommendations were appropriate. Labs, x- rays, and medications are all reviewed. Time with Patient: Greater than 30
[2020-10-09 11:41] LABS: Glucose,Whole Blood 147 mg/dL (75-99)
[2020-10-09 15:17] LABS: Ferritin 1460.2 ng/mL (10.0-291.0)
[2020-10-09] MEDS: SODIUM CHLORIDE 0.9% 1,000 ML IV SCH (16:19)
[2020-10-09] MEDS: HEPARIN SODIUM 1,000 UN/ML (10ML VL) IV PRN (17:35)
--- NOTE | 2020-10-09 18:13 | P.PN ---
Progress Note - Text Progress Note Date: 10/09/20 Presenting complaint Shortness of breath History of presenting complaint Patient is a 60-year-old female, follows with Dr. Herberth Hurd, with no known past medical history who presented to the ER secondary to shortness of breath and cough. She was diagnosed with COVID 19 on 09/23/20. In the ER she was saturating 85% on room air and was found to be in A. fib with RVR and heart rates 120 to 130. Initial labs showed d-dimer of 1.77, lymphocytes 0.5, sodium 132, carbon dioxide 19, BUN 25, AST 122, ALT 47, LDH 2894, and CRP to exceed 8.2. She was admitted and was started on Decadron. She was outside of the window for Remdesivir. She was started on a Cardizem drip as well as metoprolol orally for her A. fib. She was also started on a heparin drip. She's given fluids for her hyponatremia. Pulmonary was consulted. She was requiring a nonrebreather on admission and overnight on 10/03 she was requiring maximal therapy through an air follow along with her nonrebreather to maintain low normal O2 sats. She converted to normal sinus rhythm and her Cardizem drip was stopped. Cardiology was consulted for her A. fib. She was subsequently transferred to the ICU. She had reported some leg pain and venous Dopplers were negative in bilateral lower extremities heparin drip was stopped and she had converted to normal sinus mechanism and she was subsequently started on prophylactic Lovenox. Echocardiogram showed ejection fraction 55-60% with moderate LVH. She was unable to tolerated AIRVO and was started on BiPap. Patient opted to change her CODE STATUS to DO NOT INTUBATE October 08 patient respiratory status declined. Patient's sister obtained an emergency guardianship through the court and after she discussed with Dr. Park he decided to intubate the patient. This morning patient is on propofol and Nimbex. But the FiO2 60 the pupil 16. I did get a call from the nurse and also from the social work professor for request for transfer to it was to [place] per sister and customer marketing manager Dr. Park for ECMO. I did speak to the admitting office of the day customer marketing manager , home with home I discussed the case at length. He said that the patient was not a candidate for transfer and can be managed here. I did give him Dr. Park's cell number for further conversation regarding his advice outpatient and managed here. October 09: ICU: On the ventilator. FiO2 60 and a PEEP of 16. This included propofol IV amiodarone nitroprusside. 2 feeding at 40 mL an hour. I don't to aim patient went into A. fib with rapid ventricular rate. Was given IV beta peterson and IV amiodarone. Patient swished over to sinus rhythm. Patient on IV heparin Review of systems: Patient intubated Active Medications Acetaminophen (Acetaminophen Tab 325 Mg Tab) 650 mg PO Q6HR PRN PRN Reason: Mild Pain or Fever > 100.5 Albuterol Sulfate (Albuterol Hfa Inhaler) 2 puff INHALATION RT-Q4H [facility] Last Admin: 10/09/20 15:53 Dose: 2 puff Documented by: Albuterol Sulfate (Albuterol Hfa Inhaler) 2 puff INHALATION RT-QID PRN PRN Reason: Shortness Of Breath Or Wheezing Artificial Tears (Artificial Tears-Hypromellose Drops 15 Ml Btl) 2 drops BOTH EYES Q4H [facility] Last Admin: 10/09/20 16:18 Dose: 2 drops Documented by: Ascorbic Acid (Ascorbic Acid 500 Mg Tab) 1,000 mg PO DAILY [facility] Last Admin: 10/09/20 09:20 Dose: 1,000 mg Documented by: Chlorhexidine Gluconate (Chlorhexidine Gluconate 15 Ml Cup) 15 ml MUCOUS MEM BID [facility] Last Admin: 10/09/20 09:20 Dose: 15 ml Documented by: Cholecalciferol (Cholecalciferol 25 Mcg (1000 Iu) Tablet) 100 mcg PO DAILY [facility] Last Admin: 10/09/20 09:20 Dose: 100 mcg Documented by: Dexamethasone Sodium Phosphate (Dexamethasone Sod Phosphate 10 Mg/Ml 1 Ml Vial) 6 mg IV DAILY [facility] Last Admin: 10/09/20 09:20 Dose: 6 mg Documented by: Famotidine (Famotidine 20 Mg/2 Ml Vial) 20 mg IV BID [facility] Last Admin: 10/09/20 09:17 Dose: 20 mg Documented by: Heparin Sodium (Porcine) (Heparin Sodium 1,000 Un/Ml (10ml Vl)) 0 unit IV PER PROTOCOL PRN; Protocol PRN Reason: Low PTT Last Admin: 10/09/20 17:35 Dose: 4,000 unit Documented by: Sodium Chloride (Saline 0.9%) 1,000 mls @ 25 mls/hr IV .Q24H [facility] Last Admin: 10/09/20 16:19 Dose: 25 mls/hr Documented by: Propofol 1,000 mg/ IV Solution 100 mls @ 0 mls/hr IV .Q0M [facility]; Protocol Last Admin: 10/09/20 13:32 Dose: 40 mcg/kg/min, 29.832 mls/hr Documented by: Cisatracurium Besylate 200 mg/ (Sodium Chloride) 200 mls @ 14.916 mls/hr IV .[id number] [facility]; Protocol Last Admin: 10/09/20 03:18 Dose: 2 mcg/kg/min, 14.916 mls/hr Documented by: Amiodarone HCl 450 mg/ (Dextrose/Water) 250 mls @ 16.667 mls/hr IV .Q15H [facility]; Protocol Stop: 10/10/20 02:29 Last Admin: 10/09/20 10:58 Dose: 0.5 mg/min, 16.667 mls/hr Documented by: Heparin Sodium/Sodium Chloride (25,000 unit/ Sodium Chloride) 250 mls @ 10 mls/hr IV .Q24H [facility]; Protocol Last Titration: 10/09/20 17:27 Dose: 11.097 units/kg/hr, 13.705 mls/hr Documented by: Metoprolol Tartrate (Metoprolol Tartrate 50 Mg Tab) 50 mg PO BID [facility] Last Admin: 10/09/20 09:24 Dose: 50 mg Documented by: Morphine Sulfate (Morphine Sulfate 2 Mg/Ml Syringe) 2 mg IVP Q4H PRN PRN Reason: anxiety Last Admin: 10/07/20 22:17 Dose: 2 mg Documented by: Naloxone HCl (Naloxone 0.4 Mg/Ml 1 Ml Vial) 0.2 mg IV Q2M PRN PRN Reason: Opioid Reversal Ondansetron HCl (Ondansetron 4 Mg/2 Ml Vial) 4 mg IVP Q8HR PRN PRN Reason: Nausea And Vomiting Zinc Sulfate (Zinc Sulfate 220 Mg Cap) 220 mg PO DAILY [facility] Last Admin: 10/09/20 09:22 Dose: 220 mg Documented by: On examination: VITAL SIGNS: 100.8, 77, 30, 129 x 66, 132 x 61, 92% on ventilator GENERAL APPEARANCE: Sedated, intubated RESPIRATORY: Respiratory effort increased. Accessory muscles working Rest of the exam per pulmonary and nursing Investigations: October 09: WBC 12.9 hemoglobin 12.8 platelets 127 d-dimer 23.2 potassium 5.3 creatinine 0.87 CRP 17.6 pro-calcitonin 0.14 October 08: WBC 15.6 hemoglobin 13.8 which is 143. ABG pH 7.25 pCO2 65 pO2 92. Potassium 5.3 creatinine 0.9 to October 07: WBC 13.3 hemoglobin 14 platelets 195 potassium 4.8 creatinine 0.78. ABG: E87.46, pCO2 43, pO2 66 CRP 17.1 October 06: WBC 7.4 hemoglobin 13.2 platelets 238 d-dimer 22.8 potassium 5.3 creatinine 0.8 CRP 25.1 Abdominal ultrasound limited: Very limited exam. Possible gallstones. October 05: WBC 5.3 hemoglobin 12.9 platelets 260 d-dimer 3.65 potassium 4.9 creatinine 0.81 CRP 45.6 Chest x-ray film personally reviewed by me-[October 05]: Bilateral infiltrates more so in the lower zone Lower extremity Doppler ultrasound: Negative for DVT 2-D echocardiogram: Concentric LVH, EF 55-60% Admission labs: D-dimer 1.77 CRP 68.2 Assessment and plan: COVID 19 pneumonia with acute hypoxic respiratory failure,-not improving -Continue with Decadron, Zinc, vitamin C, vitamin D, Lovenox [ Convolescent Plasma 10/03, Toci X 1 on 10/03 ] Acute hypoxic respiratory failure secondary to COVID 19 pneumonia,-not improving. Patient on ventilator support Paroxysmal atrial fibrillation, with episode of rapid ventricular rate this morning. -Seen by cardiology. Continue with metoprolol. On IV amiodarone Transaminitis likely secondary to illness -Follow liver enzymes. ultrasound: Poor quality. Gallstones, asymptomatic Hyponatremia secondary decreased solute intake in addition to water. -Corrected Morbid obesity with BMI 41 -Structured outpatient weight loss Legal guardian: Krista patient's sister Confirmed by Judge Rashid Prognosis guarded. Continue current medication treatment plan.
[2020-10-09] MEDS: AMIODARONE 200 MG TAB PO SCH (20:32)
[2020-10-09 23:37] LABS: Glucose,Whole Blood 154 mg/dL (75-99)
[2020-10-10] MEDS ORDERED: DEXTROSE 5% IN WATER 100 ML with AMIODARONE 150 MG IV ONE (00:49)
[2020-10-10] MEDS: AMIODARONE 450 MG in DEXTROSE 5% IN WATER 250 ML IV SCH ×6 (00:50→13:11)
[2020-10-10] MEDS: ARTIFICIAL TEARS-HYPROMELLOSE DROPS 15 ML BTL BOTH EYES SCH ×7 (01:04→23:29)
[2020-10-10] MEDS ORDERED: AMIODARONE 360 MG in DEXTROSE 5% IN WATER 200 ML IV ONE ×2 (01:59)
[2020-10-10] MEDS: ALBUTEROL HFA INHALER INHALATION SCH ×6 (02:16→20:30)
[2020-10-10 05:06] LABS: Glucose,Whole Blood 165 mg/dL (75-99)
[2020-10-10 05:45] LABS: D-Dimer 10.9 mg/L FEU (<0.60); INR 1.1 (<1.2); Prothrombin Time 11.6 sec (9.0-12.0)
[2020-10-10 05:53] LABS: Potassium 5.2 mmol/L (3.5-5.1)
[2020-10-10] MEDS: CISATRACURIUM 200 MG in SODIUM CHLORIDE 0.9% 180 ML IV SCH ×2 (05:58→14:15)
[2020-10-10 06:02] LABS: ABG Base Excess 9.7 mmol/L; ABG HCO3 36 mmol/L (21-25); ABG Oxygen Saturation 94.5 % (94-97); ABG PCO2 67 mmHg (35-45); ABG PH 7.34 (7.35-7.45); ABG PO2 74 mmHg (83-108); ABG TCO2 38 mmol/L (19-24); Allen Test Performed? Yes
[2020-10-10 06:06] LABS: HCT 39.6 % (34.0-46.0); HGB 12.6 gm/dL (11.4-16.0); Hypochromasia Slight; MCHC 31.7 g/dL (31.0-37.0); MCV 88.5 fL (80.0-100.0); Mean Platelet Volume 8.4; Platelet Count 166 k/uL (150-450); RBC 4.48 m/uL (3.80-5.40); RDW 14.6 % (11.5-15.5); WBC 16.3 k/uL (3.8-10.6)
[2020-10-10 06:11] LABS: C Reactive Protein 11.7 mg/L (<10.0); Calcium 8.2 mg/dL (8.4-10.2)
--- NOTE | 2020-10-10 06:43 | P.PN ---
Subjective Progress Note Date: 10/10/20 Principal diagnosis: Cardiac arrhythmia This is a 60-year-old gentleman who was admitted to the hospital with COVID-19 infection and we consulted to see the patient for paroxysmal supraventricular tachycardia and also brief episode of atrial fibrillation with RVR. The patient was seen today October 102020. She did have an episode of atrial fibrillation with RVR yesterday and subsequently converted to sinus rhythm. I'm going to increase the dose of metoprolol 200 mg by mouth twice a day and continue amiodarone by mouth. Currently she is on heparin drip. Will consider switching the patient to oral anticoagulation in the next 12-24 hours. Objective - Vital Signs Vital signs: Vital Signs Temp 100.8 F H 10/10/20 04:00 Pulse 94 10/10/20 06:00 Resp 30 H 10/10/20 06:00 BP 137/80 10/10/20 06:00 Pulse Ox 92 L 10/10/20 06:00 Intake & Output 10/09/20 10/09/20 10/10/20 06:59 18:59 06:59 Intake Total 665.543 976 955.107 Output Total 1060 800 715 Balance -394.457 176 240.107 Weight 123.5 kg 123.5 kg 124 kg Intake: IV 240 240 240 0.9 240 240 240 Intake, IV Titration 425.543 376 525.107 Amount Cisatracurium 200 mg In 125.543 200 Sodium Chloride 0.9% 180 ml @ 2 MCG/KG/MIN 14.916 mls/hr IV .[id number] [facility] Rx #:[id number] Heparin Sod,Pork in 0.45% 76 NaCl 25,000 unit In 0.45 % NaCl 1 250ml.bag @ 8. 097 UNITS/KG/HR 10 mls/hr IV .Q24H [facility] Rx#: [id number] propofoL 1,000 mg In 300 300 325.107 Empty Bag 1 bag @ Titrate IV .Q0M [facility] Rx#: [id number] Tube Feeding 300 160 Other 60 30 Output: Urine 1060 800 715 Other: Voiding Method Indwelling Catheter Indwelling Catheter Indwelling Catheter ABP, PAP, CO, CI - Last Documented Arterial Blood Pressure 119/55 - Labs CBC & Chem 7: 10/10/20 04:55 10/10/20 04:55 Labs: Abnormal Lab Results - Last 24 Hours (Table) 10/09/20 10/09/20 10/09/20 Range/Units 05:50 05:50 05:50 WBC 12.9 H (3.8-10.6) k/uL Plt Count 127 L (150-450) k/uL Neutrophils # 12.0 H (1.3-7.7) k/uL Lymphocytes # 0.4 L (1.0-4.8) k/uL APTT (22.0-30.0) sec D-Dimer 23.24 H (<0.60) mg/L FEU ABG pH (7.35-7.45) ABG pCO2 (35-45) mmHg ABG pO2 (83-108) mmHg ABG HCO3 (21-25) mmol/L ABG Total CO2 (19-24) mmol/L Potassium 5.3 H (3.5-5.1) mmol/L Carbon Dioxide 33 H (22-30) mmol/L BUN 49 H (7-17) mg/dL Glucose 149 H (74-99) mg/dL POC Glucose (mg/dL) (75-99) mg/dL Calcium 7.7 L (8.4-10.2) mg/dL Ferritin 1460.2 H (10.0-291.0) ng/mL Lactate Dehydrogenase 5465 H (313-618) U/L C-Reactive Protein 17.6 H (<10.0) mg/L Procalcitonin (0.02-0.09) ng/mL 10/09/20 10/09/20 10/09/20 Range/Units 05:50 09:46 11:38 WBC (3.8-10.6) k/uL Plt Count (150-450) k/uL Neutrophils # (1.3-7.7) k/uL Lymphocytes # (1.0-4.8) k/uL APTT 20.8 L (22.0-30.0) sec D-Dimer (<0.60) mg/L FEU ABG pH (7.35-7.45) ABG pCO2 (35-45) mmHg ABG pO2 (83-108) mmHg ABG HCO3 (21-25) mmol/L ABG Total CO2 (19-24) mmol/L Potassium (3.5-5.1) mmol/L Carbon Dioxide (22-30) mmol/L BUN (7-17) mg/dL Glucose (74-99) mg/dL POC Glucose (mg/dL) 147 H (75-99) mg/dL Calcium (8.4-10.2) mg/dL Ferritin (10.0-291.0) ng/mL Lactate Dehydrogenase (313-618) U/L C-Reactive Protein (<10.0) mg/L Procalcitonin 0.14 H (0.02-0.09) ng/mL 10/09/20 10/09/20 10/10/20 Range/Units 23:25 23:26 04:54 WBC (3.8-10.6) k/uL Plt Count (150-450) k/uL Neutrophils # (1.3-7.7) k/uL Lymphocytes # (1.0-4.8) k/uL APTT 46.9 H (22.0-30.0) sec D-Dimer (<0.60) mg/L FEU ABG pH (7.35-7.45) ABG pCO2 (35-45) mmHg ABG pO2 (83-108) mmHg ABG HCO3 (21-25) mmol/L ABG Total CO2 (19-24) mmol/L Potassium (3.5-5.1) mmol/L Carbon Dioxide (22-30) mmol/L BUN (7-17) mg/dL Glucose (74-99) mg/dL POC Glucose (mg/dL) 154 H 165 H (75-99) mg/dL Calcium (8.4-10.2) mg/dL Ferritin (10.0-291.0) ng/mL Lactate Dehydrogenase (313-618) U/L C-Reactive Protein (<10.0) mg/L Procalcitonin (0.02-0.09) ng/mL 10/10/20 10/10/20 10/10/20 Range/Units 04:55 04:55 04:55 WBC 16.3 H (3.8-10.6) k/uL Plt Count (150-450) k/uL Neutrophils # (1.3-7.7) k/uL Lymphocytes # (1.0-4.8) k/uL APTT (22.0-30.0) sec D-Dimer 10.90 H (<0.60) mg/L FEU ABG pH (7.35-7.45) ABG pCO2 (35-45) mmHg ABG pO2 (83-108) mmHg ABG HCO3 (21-25) mmol/L ABG Total CO2 (19-24) mmol/L Potassium 5.2 H (3.5-5.1) mmol/L Carbon Dioxide 36 H (22-30) mmol/L BUN 51 H (7-17) mg/dL Glucose 136 H (74-99) mg/dL POC Glucose (mg/dL) (75-99) mg/dL Calcium 8.2 L (8.4-10.2) mg/dL Ferritin (10.0-291.0) ng/mL Lactate Dehydrogenase (313-618) U/L C-Reactive Protein 11.7 H (<10.0) mg/L Procalcitonin (0.02-0.09) ng/mL 10/10/20 Range/Units 05:50 WBC (3.8-10.6) k/uL Plt Count (150-450) k/uL Neutrophils # (1.3-7.7) k/uL Lymphocytes # (1.0-4.8) k/uL APTT (22.0-30.0) sec D-Dimer (<0.60) mg/L FEU ABG pH 7.34 L (7.35-7.45) ABG pCO2 67 H (35-45) mmHg ABG pO2 74 L (83-108) mmHg ABG HCO3 36 H (21-25) mmol/L ABG Total CO2 38 H (19-24) mmol/L Potassium (3.5-5.1) mmol/L Carbon Dioxide (22-30) mmol/L BUN (7-17) mg/dL Glucose (74-99) mg/dL POC Glucose (mg/dL) (75-99) mg/dL Calcium (8.4-10.2) mg/dL Ferritin (10.0-291.0) ng/mL Lactate Dehydrogenase (313-618) U/L C-Reactive Protein (<10.0) mg/L Procalcitonin (0.02-0.09) ng/mL Assessment and Plan Assessment: Assessment #1 COVID-19 infection #2 acute hypoxic respiratory failure #3 paroxysmal atrial fibrillation with only 1 brief episode #4 multiple comorbid conditions Plan #1 increase the dose of metoprolol #2 continue amiodarone with the current dose #3 switch the patient to oral anticoagulation in the next 12-24 hour #4 follow-up with the patient
[2020-10-10] MEDS: HEPARIN SOD,PORK IN 0.45% NACL 25,000 UNIT in 0.45% NACL 1 250ML.BAG IV SCH ×2 (07:03→22:57)
[2020-10-10] MEDS: HEPARIN SODIUM 1,000 UN/ML (10ML VL) IV PRN (07:13)
[2020-10-10] MEDS: CHLORHEXIDINE GLUCONATE 15 ML CUP MUCOUS MEM SCH ×2 (08:28→21:11)
[2020-10-10] MEDS: AMIODARONE 200 MG TAB PO SCH ×2 (08:28→21:12)
[2020-10-10] MEDS: CHOLECALCIFEROL 25 MCG (1000 IU) TABLET PO SCH (08:28)
[2020-10-10] MEDS: ASCORBIC ACID 500 MG TAB PO SCH (08:28)
[2020-10-10] MEDS: DEXAMETHASONE SOD PHOSPHATE 10 MG/ML 1 ML VIAL IV SCH (08:28)
[2020-10-10] MEDS: ZINC SULFATE 220 MG CAP PO SCH (08:29)
[2020-10-10] MEDS: FAMOTIDINE 20 MG/2 ML VIAL IV SCH ×2 (08:29→21:11)
[2020-10-10] MEDS: METOPROLOL TARTRATE 50 MG TAB PO SCH ×2 (08:29→21:12)
[2020-10-10 09:59] LABS: Band Neutrophils % 9 %; Eosinophils # (M) 0.65 k/uL (0-0.7); Lymphocytes # (M) 0.49 k/uL (1.0-4.8); Metamyelocytes # (M) 0.33 k/uL (0); Metamyelocytes % 2 %; Monocytes # (M) 0.65 k/uL (0-1.0); Myelocytes # (M) 0.16 k/uL (0); Myelocytes % 1 %; Neutrophils % (M) 79 %; Nucleated Red Blood Cells 0 /100 WBC (0-0); Total Cells Counted 200
--- NOTE | 2020-10-10 10:45 | XR ---
EXAMINATION TYPE: XR chest 1V portable DATE OF EXAM: 10/10/2020 COMPARISON: 10/09/2020 INDICATION: Tube placement TECHNIQUE: Single frontal view of the chest is obtained. FINDINGS: The heart size is normal. The pulmonary vasculature is normal. Bibasilar infiltrates are present. Groundglass opacity is present. Mild more focal infiltrate is at t he right lung base Endotracheal tube tip above the satish. Nasogastric tube transverses the thorax. Left central venous catheter is present with the tip in superior vena cava region. IMPRESSION: 1. Diffuse bilateral infiltrates are nonspecific. Correlate for atypical pneumonia. 2. Lines and catheters discussed above
[2020-10-10] MEDS ORDERED: propofoL 100 ML IV ONE (11:33)
[2020-10-10 11:34] LABS: Glucose,Whole Blood 144 mg/dL (75-99)
--- NOTE | 2020-10-10 11:45 | P.PN ---
Subjective Progress Note Date: 10/10/20 Principal diagnosis: Hypoxemic respiratory failure. On 10/05/2020 and patient seen in follow-up in the intensive care unit. She remains on BiPAP support with pressures of 14/60 FiO2 of 100% with a pulse ox between 90-97%, afebrile, a bit hypertensive, with systolic between 160-180 and diastolic in 90-100. Patient is status post Tocilizumab 800 mg IV piggyback infusion on 10/03/2020 and she has received 1 unit of convalescent plasma on 10/03/2020. Continues on Decadron 6 mg daily, Lovenox 40 mg daily, Pepcid, IV fluids 0.9 normal saline infusing at 25 ML per hour. Today's labs have been reviewed, d-dimer 3.6, B1 is 32, creatinine 0.81, CO2 is 33, the rest of the electrolytes were unremarkable, ferritin level is 1414, AST is 79, which has improved, and ALT is 41 which is relatively stable, up slightly from 39, but overall improving, LDH remains significantly elevated at 3977, CRP is 45.6. Chest x-ray shows diffuse bilateral infiltrates. On 10/07/1999 patient seen in follow-up in the intensive care unit. She remains on BiPAP support on which she is most of the time, with pressures of 14/6, 100% FiO2. Pulse ox is 95%, low-grade fevers with a temp of 99.4 axillary this morning, hemodynamically patient remains stable, not on any drips, 0.9 normal saline at 20 ML per hour, today's d-dimer is up to 22.82, and the patient was started on therapeutic doses of Lovenox 120 mg twice daily, however we will switch the patient to 0.5 mg/kg dosing twice daily. Today's inflammatory markers are continue to trend up, LDH is up to 4670, and a CK is 607, and CRP is down some to 25.1. Abdominal ultrasound was completed in view of elevated liver enzymes and it was a severely limited exam suggesting mostly a collapsed gallbladder containing multiple gallstones, bile duct measures were within normal limits. Today's chest x-ray showed diffuse pleural parenchymal changes correlating with diffuse pneumonia. Hemodynamically patient has been stable, maintaining normal sinus rhythm, echocardiogram showed normal LV function without significant valvular abnormalities, cardiology is following and has been adjusting beta blockers for better heart rate and blood pressure control. Progress note dated 10/07/2020. 60-year-old female, who was diagnosis with acute coronavirus infection, on September 23. Unfortunately, she developed acute COVID 19 pneumonia. In his been in the intensive care unit for a number of days. Currently, she is on BiPAP with settings of IPAP 14 and EPAP 6, and 100%. She is on saline at 20 mL an hour. Her respiratory status has clearly declined, and we did offer her intubation and mechanical ventilation. Unfortunately, she did not want intubation or mechanical ventilation. We did discuss this with her and her family members. Today, white count was 13.3, he lobe and 14, hematocrit 40.2, and platelet count 195,000. D-dimer is 34.10. Arterial blood gas shows a pO2 of 66, pCO2 of 43, and a pH of 7.46. Sodium 139, potassium 4.8 chloride 104, and CO2 31. Anion gap is 4, BUN 34, and creatinine 0.78. LDH is 6384. CK was 557, C-reactive protein is 17.1. N-terminal proBNP was 2180. Chest x-ray, shows diffuse bilateral infiltrates, which appear a bit worse. Progress note dated 10/08/2020. 60-year-old female, who is diagnosed with acute COVID 19 pneumonia. The patient tested positive and was diagnosed back on September 23. The patient's pneumonitis, has worsened in recent days, and the patient was on BiPAP for a number days, and 100%. Physician and nursing staff had ongoing discussions with the patient about the next step, which included intubation and mechanical ventilation, and the patient was adamant about not being placed on the mechanical ventilator. The patient's sister, apparently obtained a emergency guardianship from the court, and the patient who was initially a DO NOT INTUBATE, was then changed to a full code. As her respiratory status worsened, decision was made to go ahead and intubate the patient acting in her best interest. I did speak with the paraprofessional education assistant last night on the phone, and there is a hearing today at 3:00 PM. The information was given to me. A central line was placed today, as well as an arterial line, the patient remains on mechanical ventilator. We'll start tube feeds today. Her ventilator settings include a Lyme assist control mode, rate 30, tidal volume 400, FiO2 60%, PEEP 16. Arterial blood gases showed a PaO2 of 254, PaCO2 of 70, and a pH is 7.2. That blood gas was 100%, and a rate of 24. Repeat blood gases have been ordered. She's getting saline at 20 mL an hour, Nimbex at 2.4 mcg/kg/m, propofol at 40 mcg/kg/m, and she did receive some fluid resuscitation because of hypotension. 2 feedings will be started today. White count is 15.6, hemoglobin 13.8, hematocrit 40.5, and platelet count 143,000. Sodium 142, potassium 5.3, chloride 111, CO2 30, anion gap 1, BUN 48, and creatinine 0.92. Calcium is 7.3. Chest x-ray shows diffuse bilateral infiltrates. The central line is in good position. Progress note dated 10/09/2020. 60-year-old female, with a diagnosis of acute COVID 19 pneumonia. The patient tested positive over was diagnosed back on September 23 and unfortunately, the patient's oxygenation has worsened, and she was recently intubated and placed on the mechanical ventilator. Initially, and throughout her hospitalization before intubation, the patient was adamant about not going on the mechanical ventilator. Nonetheless, she is on it now, and settings include volume assist control mode, rate 30, tidal volume 400, FiO2 60%, and PEEP 16. Blood gases show pO2 of 75, pCO2 67, and a pH of 7.29. The patient's on saline at KVO, Nimbex at 0.4 mcg/kg/m, propofol at 40 mcg/kg/m and vital high protein at 20, with a goal of 40 mL an hour. Unfortunately, last night, she developed atrial fibrillation with RVR, and hypotension. Cardiology was called. They increased her metoprolol, and place her on an amiodarone drip at 1 g/m. The beta peterson was subsequently increased, and she'll be started on oral amiodarone today, at 200 mg twice a day. Finally, she was placed on a heparin drip. White count 12.9, hemoglobin 12.8, hematocrit 38.8, platelet count 127,000. D-dimer is 23.24. Sodium 143, potassium 5.3, chlorides 107, CO2 33, anion gap 3, BUN 49, and creatinine 0.87. LDH was 5465, and C-reactive protein was 17.6. Chest x-r ay shows diffuse bilateral infiltrates. Progress note dated 10/10/2020. 60-year-old female again seen in room 262. She is a diagnosis of hypoxemic respiratory failure secondary to COVID 19 pneumonia. The patient was intubated for respiratory failure on October 07. Initially, the patient did not want intubation and mechanical ventilation, and that was documented by number physicians and nurses for the first part of this past week. Anyway, she remains on volume assist control mode, rate of 30, tidal volume 400, FiO2 60%, and PEEP of 16. Blood gases show pO2 74, pCO2 of 67, a pH is 7.3. She remains on heparin, the weight based protocol, for the atrial fibrillation, saline at KVO, Nimbex at 1 mcg/kg/m, propofol at 45 mcg/kg/m, and vital high protein at 40 mL an hour, which is goal. White count 16.3, hemoglobin 12.6, hematocrit 39.6, and platelet count 166,000. D-dimer was 10.9. Sodium 142, potassium 5.2, chlorides 106, CO2 36, BUN 51, creatinine 0.95. LDH is 6124, and C-reactive protein is 11.7. Chest x-ray shows diffuse bilateral infiltrates, which are nonspecific. Chest x-ray my opinion is stable. Objective - Vital Signs Vital signs: Vital Signs Temp 98.9 F 10/10/20 08:00 Pulse 63 10/10/20 10:00 Resp 29 H 10/10/20 10:00 BP 117/73 10/10/20 08:00 Pulse Ox 92 L 10/10/20 10:00 Intake & Output 10/09/20 10/10/20 10/10/20 18:59 06:59 18:59 Intake Total 976 1509.107 267.798 Output Total 800 715 125 Balance 176 794.107 142.798 Weight 123.5 kg 124 kg Intake: IV 240 240 46 0.9 240 240 40 Pressure Bags 6 Intake, IV Titration 376 699.107 71.798 Amount Cisatracurium 200 mg In 200 Sodium Chloride 0.9% 180 ml @ 2 MCG/KG/MIN 14.916 mls/hr IV .[id number] [facility] Rx #:[id number] Heparin Sod,Pork in 0.45% 76 174 2.056 NaCl 25,000 unit In 0.45 % NaCl 1 250ml.bag @ 8. 097 UNITS/KG/HR 10 mls/hr IV .Q24H [facility] Rx#: [id number] propofoL 1,000 mg In 300 325.107 69.742 Empty Bag 1 bag @ Titrate IV .Q0M [facility] Rx#: [id number] Tube Feeding 300 480 120 Other 60 90 30 Output: Urine 800 715 125 Other: Voiding Method Indwelling Catheter Indwelling Catheter Indwelling Catheter ABP, PAP, CO, CI - Last Documented Arterial Blood Pressure 93/46 - Exam The patient is currently intubated and sedated, mechanically ventilated. She is also chemically paralyzed. HEENT examination is grossly unremarkable. Oral endotracheal tube is noted. Neck supple. Full range of motion. No adenopathy thyromegaly or neck vein distention. A left internal jugular triple-lumen catheter is noted. Cardiovascular examination reveals an irregular rhythm and rate. S1-S2 normal. No S3 or S4. No discernible murmur noted. Heart rate 63 bpm. Lungs reveal coarse bilateral rhonchi and crackles. Breath sounds equal. No wheezes. Breath sounds are bit worse today. Exam is essentially unchanged. Abdomen soft bowel sounds are heard. No masses or tenderness. Extremities are intact. No cyanosis clubbing or edema. Skin is without rash or lesion. Neurologic examination could not be adequately assessed as the patient's currently sedated and paralyzed. - Labs CBC & Chem 7: 10/10/20 04:55 10/10/20 04:55 Labs: Abnormal Lab Results - Last 24 Hours (Table) 10/09/20 10/09/20 10/09/20 Range/Units 05:50 05:50 11:38 WBC (3.8-10.6) k/uL Neutrophils # (Manual) (1.3-7.7) k/uL Lymphocytes # (Manual) (1.0-4.8) k/uL Metamyelocytes # (Man) (0) k/uL Myelocytes # (Manual) (0) k/uL APTT (22.0-30.0) sec D-Dimer (<0.60) mg/L FEU ABG pH (7.35-7.45) ABG pCO2 (35-45) mmHg ABG pO2 (83-108) mmHg ABG HCO3 (21-25) mmol/L ABG Total CO2 (19-24) mmol/L Potassium (3.5-5.1) mmol/L Carbon Dioxide (22-30) mmol/L BUN (7-17) mg/dL Glucose (74-99) mg/dL POC Glucose (mg/dL) 147 H (75-99) mg/dL Calcium (8.4-10.2) mg/dL Ferritin 1460.2 H (10.0-291.0) ng/mL Lactate Dehydrogenase (313-618) U/L C-Reactive Protein (<10.0) mg/L Procalcitonin 0.14 H (0.02-0.09) ng/mL 10/09/20 10/09/20 10/10/20 Range/Units 23:25 23:26 04:54 WBC (3.8-10.6) k/uL Neutrophils # (Manual) (1.3-7.7) k/uL Lymphocytes # (Manual) (1.0-4.8) k/uL Metamyelocytes # (Man) (0) k/uL Myelocytes # (Manual) (0) k/uL APTT 46.9 H (22.0-30.0) sec D-Dimer (<0.60) mg/L FEU ABG pH (7.35-7.45) ABG pCO2 (35-45) mmHg ABG pO2 (83-108) mmHg ABG HCO3 (21-25) mmol/L ABG Total CO2 (19-24) mmol/L Potassium (3.5-5.1) mmol/L Carbon Dioxide (22-30) mmol/L BUN (7-17) mg/dL Glucose (74-99) mg/dL POC Glucose (mg/dL) 154 H 165 H (75-99) mg/dL Calcium (8.4-10.2) mg/dL Ferritin (10.0-291.0) ng/mL Lactate Dehydrogenase (313-618) U/L C-Reactive Protein (<10.0) mg/L Procalcitonin (0.02-0.09) ng/mL 10/10/20 10/10/20 10/10/20 Range/Units 04:55 04:55 04:55 WBC 16.3 H (3.8-10.6) k/uL Neutrophils # (Manual) 14.30 H (1.3-7.7) k/uL Lymphocytes # (Manual) 0.49 L (1.0-4.8) k/uL Metamyelocytes # (Man) 0.33 H (0) k/uL Myelocytes # (Manual) 0.16 H (0) k/uL APTT (22.0-30.0) sec D-Dimer 10.90 H (<0.60) mg/L FEU ABG pH (7.35-7.45) ABG pCO2 (35-45) mmHg ABG pO2 (83-108) mmHg ABG HCO3 (21-25) mmol/L ABG Total CO2 (19-24) mmol/L Potassium 5.2 H (3.5-5.1) mmol/L Carbon Dioxide 36 H (22-30) mmol/L BUN 51 H (7-17) mg/dL Glucose 136 H (74-99) mg/dL POC Glucose (mg/dL) (75-99) mg/dL Calcium 8.2 L (8.4-10.2) mg/dL Ferritin (10.0-291.0) ng/mL Lactate Dehydrogenase 6124 H (313-618) U/L C-Reactive Protein 11.7 H (<10.0) mg/L Procalcitonin (0.02-0.09) ng/mL 10/10/20 10/10/20 10/10/20 Range/Units 05:50 06:30 11:32 WBC (3.8-10.6) k/uL Neutrophils # (Manual) (1.3-7.7) k/uL Lymphocytes # (Manual) (1.0-4.8) k/uL Metamyelocytes # (Man) (0) k/uL Myelocytes # (Manual) (0) k/uL APTT 42.4 H (22.0-30.0) sec D-Dimer (<0.60) mg/L FEU ABG pH 7.34 L (7.35-7.45) ABG pCO2 67 H (35-45) mmHg ABG pO2 74 L (83-108) mmHg ABG HCO3 36 H (21-25) mmol/L ABG Total CO2 38 H (19-24) mmol/L Potassium (3.5-5.1) mmol/L Carbon Dioxide (22-30) mmol/L BUN (7-17) mg/dL Glucose (74-99) mg/dL POC Glucose (mg/dL) 144 H (75-99) mg/dL Calcium (8.4-10.2) mg/dL Ferritin (10.0-291.0) ng/mL Lactate Dehydrogenase (313-618) U/L C-Reactive Protein (<10.0) mg/L Procalcitonin (0.02-0.09) ng/mL Microbiology - Last 24 Hours (Table) 10/07/20 11:53 Gram Stain - Final Sputum Sputum Culture - Final Assessment and Plan Assessment: #1. Acute hypoxic respiratory failure secondary to acute COVID 19 related pneumonitis, status post Tocilizumab and 1 unit of convalescent plasma on 10/03/2020, admitted to the ICU on 10/03/2020, remains on high flow oxygen with 15 L per high flow and 100% nonrebreather mask, intubated for worsening respiratory failure on 10/07/2020. #2. History of paroxysmal atrial fibrillation, currently in sinus rhythm #3. Hypovolemic hyponatremia, improved with hydration #4. Increased d-dimer, related to acute COVID 19 #5. Increased transaminases related to acute viral pneumonia. Ultrasound abdomen was completed showing multiple gallbladder stones, however total bilirubin level is normal at 0.5 #6. Recurrent atrial fibrillation with RVR, status post metoprolol, IV amiodarone, IV heparin, and now oral amiodarone. Plan: Plan dated 10/07/2020. We are long discussion with the patient about CODE STATUS and intubation with mechanical ventilation. Surprisingly, she does not want to be intubated. The patient will be given some additional sedatives, to see if we can calm her down a bit. Despite including narcotics, and/or Ativan, and or dexmedetomidine. Additional recommendations and suggestions are forthcoming. Prognosis is poor. We will continue to follow the patient and make recommendations were urszula newell. Plan dated 10/08/2020. The patient's sister, petitioned the court for a emergency guardianship, and it was granted, and the patient was made a full code by her sister. The patient was intubated for worsening respiratory failure. The patient was adamant about not going on mechanical ventilation. We had numerous talks with her, both physicians and nurses. Currently, she remains on the mechanical ventilator. A central line and an arterial line were placed. Medications are reviewed. X- rays and labs are reviewed. We will continue to follow make appropriate recommendations were needed. Tube feedings were started today. Plan dated 10/09/2020. The patient was intubated on October 07, for worsening hypoxemic respiratory failure. Last night, she developed atrial fibrillation, with RVR, and hypotension. She received increasing doses of beta peterson, IV amiodarone, IV heparin, and oral amiodarone. Currently, she remains on chemical paralysis with Nimbex, and sedation with propofol. Tube feeds will be increase to goal of 40 mL an hour. Blood gases are reasonable and 60% FiO2 and 16 of PEEP. Prognosis remains poor. Additional recommendations and suggestions are forthcoming. We'll continue to follow and make recommendations were appropriate. Labs, x- rays, and medications are all reviewed. Plan dated 10/10/2020. The patient was intubated for worsening hypoxemic respiratory failure on October 07. She also has developed atrial fibrillation with RVR. For that she is on IV heparin she also had hypotension with that episode of atrial fibrillation. The patient is currently on beta blockers, and oral amiodarone. The patient's prognosis remains very guarded. She is getting nutrition at goal. Blood gases are reviewed. We will continue to follow along and make recommendations were appropriate. Labs, x-rays, and medications are reviewed. We will attempt to get the patient off of Nimbex today. Time with Patient: Greater than 30
[2020-10-10 12:22] LABS: Ferritin 2680.2 ng/mL (10.0-291.0)
[2020-10-10] MEDS: SODIUM CHLORIDE 0.9% 1,000 ML IV SCH (15:12)
[2020-10-10 17:08] LABS: Glucose,Whole Blood 142 mg/dL (75-99)
--- NOTE | 2020-10-10 21:31 | P.DS ---
Providers Date of admission: 10/02/20 16:21 Expected date of discharge: 10/10/20 Attending physician: Red Mcneil Consults: 10/02/20 16:23 Consult Physician Routine Consulting Provider: Brsisa Holland Consult Reason/Comments: COVID PNA hypoxia Do you want consulting provider notified?: Yes Consult Physician Urgent Consulting Provider: Jorge Milton Consult Reason/Comments: COVID PNA, A-fib new onset Do you want consulting provider notified?: Yes Primary care physician: Herberth Hurd [facility] Course: Presenting complaint Shortness of breath History of presenting complaint Patient is a 60-year-old female, follows with Dr. Herberth Hurd, with no known past medical history who presented to the ER secondary to shortness of breath and cough. She was diagnosed with COVID 19 on 09/23/20. In the ER she was saturating 85% on room air and was found to be in A. fib with RVR and heart rates 120 to 130. Initial labs showed d-dimer of 1.77, lymphocytes 0.5, sodium 132, carbon dioxide 19, BUN 25, AST 122, ALT 47, LDH 2894, and CRP to exceed 8.2. She was admitted and was started on Decadron. She was outside of the window for Remdesivir. She was started on a Cardizem drip as well as metoprolol orally for her A. fib. She was also started on a heparin drip. She's given fluids for her hyponatremia. Pulmonary was consulted. She was requiring a nonrebreather on admission and overnight on 10/03 she was requiring maximal therapy through an air follow along with her nonrebreather to maintain low normal O2 sats. She converted to normal sinus rhythm and her Cardizem drip was stopped. Cardiology was consulted for her A. fib. She was subsequently transferred to the ICU. She had reported some leg pain and venous Dopplers were negative in bilateral lower extremities heparin drip was stopped and she had converted to normal sinus mechanism and she was subsequently started on prophylactic Lovenox. Echocardiogram showed ejection fraction 55-60% with moderate LVH. She was unable to tolerated AIRVO and was started on BiPap. Patient opted to change her CODE STATUS to DO NOT INTUBATE (October 08 patient respiratory status declined. Patient's sister obtained an nithin rgency guardianship through the court and after she discussed with Dr. Park he decided to intubate the patient. This morning patient is on propofol and Nimbex. But the FiO2 60 the PEEP 16. I did get a call from the nurse and also from the social services assistant for request for transfer to it was to [place] per sister and cartoon artist Dr. Park for ECMO. I did speak to the admitting office of the day cartoon artist , home with home I discussed the case at length. He said that the patient was not a candidate for transfer and can be managed here. I did give him Dr. Park's cell number for further conversation regarding his advice for management here.) Patient's again had an episode of paroxysmal atrial fibrillation Today ICU: On the ventilator. Drips: propofol Nimbex, IV heparin 2 feeding at 40 mL an hour. Patient had that episode of paroxysmal atrial fibrillation. Review of systems: Patient intubated Active Medications Acetaminophen (Acetaminophen Tab 325 Mg Tab) 650 mg PO Q6HR PRN PRN Reason: Mild Pain or Fever > 100.5 Albuterol Sulfate (Albuterol Hfa Inhaler) 2 puff INHALATION RT-Q4H [facility] Last Admin: 10/10/20 20:30 Dose: 2 puff Documented by: Albuterol Sulfate (Albuterol Hfa Inhaler) 2 puff INHALATION RT-QID PRN PRN Reason: Shortness Of Breath Or Wheezing Amiodarone HCl (Amiodarone 200 Mg Tab) 200 mg PO BID [facility] Last Admin: 10/10/20 21:12 Dose: 200 mg Documented by: Artificial Tears (Artificial Tears-Hypromellose Drops 15 Ml Btl) 2 drops BOTH EYES Q4H [facility] Last Admin: 10/10/20 21:12 Dose: 2 drops Documented by: Ascorbic Acid (Ascorbic Acid 500 Mg Tab) 1,000 mg PO DAILY [facility] Last Admin: 10/10/20 08:28 Dose: 1,000 mg Documented by: Chlorhexidine Gluconate (Chlorhexidine Gluconate 15 Ml Cup) 15 ml MUCOUS MEM BID [facility] Last Admin: 10/10/20 21:11 Dose: 15 ml Documented by: Cholecalciferol (Cholecalciferol 25 Mcg (1000 Iu) Tablet) 100 mcg PO DAILY [facility] Last Admin: 10/10/20 08:28 Dose: 100 mcg Documented by: Dexamethasone Sodium Phosphate (Dexamethasone Sod Phosphate 10 Mg/Ml 1 Ml Vial) 6 mg IV DAILY [facility] Last Admin: 10/10/20 08:28 Dose: 6 mg Documented by: Famotidine (Famotidine 20 Mg/2 Ml Vial) 20 mg IV BID [facility] Last Admin: 10/10/20 21:11 Dose: 20 mg Documented by: Heparin Sodium (Porcine) (Heparin Sodium 1,000 Un/Ml (10ml Vl)) 0 unit IV PER PROTOCOL PRN; Protocol PRN Reason: Low PTT Last Admin: 10/10/20 07:13 Dose: 3,100 unit Documented by: Sodium Chloride (Saline 0.9%) 1,000 mls @ 25 mls/hr IV .Q24H [facility] Last Admin: 10/10/20 15:12 Dose: 25 mls/hr Documented by: Propofol 1,000 mg/ IV Solution 100 mls @ 0 mls/hr IV .Q0M [facility]; Protocol Last Admin: 10/10/20 18:26 Dose: 45 mcg/kg/min, 33.48 mls/hr Documented by: Cisatracurium Besylate 200 mg/ (Sodium Chloride) 200 mls @ 14.916 mls/hr IV .[id number] [facility]; Protocol Last Admin: 10/10/20 14:15 Dose: 1 mcg/kg/min, 7.458 mls/hr Documented by: Heparin Sodium/Sodium Chloride (25,000 unit/ Sodium Chloride) 250 mls @ 10 mls /hr IV .Q24H [facility]; Protocol Last Titration: 10/10/20 07:12 Dose: 13.097 units/kg/hr, 16.175 mls/hr Documented by: Metoprolol Tartrate (Metoprolol Tartrate 50 Mg Tab) 100 mg PO BID [facility] Last Admin: 10/10/20 21:12 Dose: 100 mg Documented by: Morphine Sulfate (Morphine Sulfate 2 Mg/Ml Syringe) 2 mg IVP Q4H PRN PRN Reason: anxiety Last Admin: 10/07/20 22:17 Dose: 2 mg Documented by: Naloxone HCl (Naloxone 0.4 Mg/Ml 1 Ml Vial) 0.2 mg IV Q2M PRN PRN Reason: Opioid Reversal Ondansetron HCl (Ondansetron 4 Mg/2 Ml Vial) 4 mg IVP Q8HR PRN PRN Reason: Nausea And Vomiting Zinc Sulfate (Zinc Sulfate 220 Mg Cap) 220 mg PO DAILY [facility] Last Admin: 10/10/20 08:29 Dose: 220 mg Documented by: On examination: VITAL SIGNS: 98.7, 72, 30, 1 42 x 57, 94% on the ventilator. FiO2 of 60 GENERAL APPEARANCE: Sedated, intubated RESPIRATORY: Respiratory effort increased. Accessory muscles working Rest of the exam per pulmonary and nursing Investigations: October 10: WBC 16.3 hemoglobin 12.6 d-dimer 10.9 potassium 5.2 creatinine 0.95 CRP 11.7 October 09: WBC 12.9 hemoglobin 12.8 platelets 127 d-dimer 23.2 potassium 5.3 creatinine 0.87 CRP 17.6 pro-calcitonin 0.14 October 08: WBC 15.6 hemoglobin 13.8 which is 143. ABG pH 7.25 pCO2 65 pO2 92. Potassium 5.3 creatinine 0.9 to October 07: WBC 13.3 hemoglobin 14 platelets 195 potassium 4.8 creatinine 0.78. ABG: E87.46, pCO2 43, pO2 66 CRP 17.1 October 06: WBC 7.4 hemoglobin 13.2 platelets 238 d-dimer 22.8 potassium 5.3 creatinine 0.8 CRP 25.1 Abdominal ultrasound limited: Very limited exam. Possible gallstones. October 05: WBC 5.3 hemoglobin 12.9 platelets 260 d-dimer 3.65 potassium 4.9 creatinine 0.81 CRP 45.6 Chest x-ray film personally reviewed by me-[October 05]: Bilateral infiltrates more so in the lower zone Lower extremity Doppler ultrasound: Negative for DVT 2-D echocardiogram: Concentric LVH, EF 55-60% Admission labs: D-dimer 1.77 CRP 68.2 Assessment and plan: COVID 19 pneumonia with acute hypoxic respiratory failure,-not improving -Continue with Decadron, Zinc, vitamin C, vitamin D, on IV heparin [ Convolescent Plasma 10/03, Toci X 1 on 10/03 ] Acute hypoxic respiratory failure secondary to COVID 19 pneumonia,-not improving. Patient on ventilator support Paroxysmal atrial fibrillation, repeated episodes of rapid ventricular rate -Seen by cardiology. Continue with metoprolol. On IV amiodarone-changed to by mouth. IV heparin Transaminitis likely secondary to illness -Follow liver enzymes. ultrasound: Poor quality. Gallstones, asymptomatic Hyponatremia secondary decreased solute intake in addition to water. -Corrected Morbid obesity with BMI 41 -Structured outpatient weight loss Legal guardian: Krista patient's sister Confirmed by Judge Rashid Prognosis guarded. Continue current medication treatment plan. Patient Condition at Discharge: Stable Plan - Discharge Summary Discharge Rx Participant: No New Discharge Prescriptions: No Action No Known Home Medications Discharge Medication List No Known Home Medications 10/02/20 [History] Follow up Appointment(s)/Referral(s): Herberth Hurd MD [Primary Care Provider] - 1-2 days
[2020-10-11] MEDS: ALBUTEROL HFA INHALER INHALATION SCH ×6 (01:15→22:03)
[2020-10-11] MEDS: ARTIFICIAL TEARS-HYPROMELLOSE DROPS 15 ML BTL BOTH EYES SCH ×5 (04:30→20:17)
[2020-10-11 05:24] LABS: HCT 35.1 % (34.0-46.0); HGB 11.1 gm/dL (11.4-16.0); Hypochromasia Slight; MCH 28.3 pg (25.0-35.0); MCHC 31.5 g/dL (31.0-37.0); Mean Platelet Volume 8.4; Platelet Count 184 k/uL (150-450); RDW 14.9 % (11.5-15.5); WBC 20.2 k/uL (3.8-10.6)
[2020-10-11 05:48] LABS: D-Dimer 6.31 mg/L FEU (<0.60); Partial Thromboplastin Time 54.2 sec (22.0-30.0)
[2020-10-11 06:16] LABS: ABG HCO3 36 mmol/L (21-25); ABG Oxygen Saturation 93.1 % (94-97); ABG PCO2 65 mmHg (35-45); ABG PH 7.35 (7.35-7.45); ABG PO2 67 mmHg (83-108); ABG TCO2 38 mmol/L (19-24); Allen Test Performed? Yes
[2020-10-11 06:24] LABS: C Reactive Protein 10.5 mg/L (<10.0); Calcium 7.8 mg/dL (8.4-10.2)
[2020-10-11] MEDS: CISATRACURIUM 200 MG in SODIUM CHLORIDE 0.9% 180 ML IV SCH ×2 (07:54→11:39)
[2020-10-11] MEDS: ZINC SULFATE 220 MG CAP PO SCH (08:05)
[2020-10-11] MEDS: CHOLECALCIFEROL 25 MCG (1000 IU) TABLET PO SCH (08:05)
[2020-10-11] MEDS: ASCORBIC ACID 500 MG TAB PO SCH (08:05)
[2020-10-11] MEDS: METOPROLOL TARTRATE 50 MG TAB PO SCH ×2 (08:05→17:37)
[2020-10-11] MEDS: CHLORHEXIDINE GLUCONATE 15 ML CUP MUCOUS MEM SCH ×2 (08:05→20:16)
[2020-10-11] MEDS: APIXABAN 5 MG TAB PO SCH ×2 (08:05→20:16)
[2020-10-11] MEDS: AMIODARONE 200 MG TAB PO SCH ×2 (08:06→20:16)
[2020-10-11 08:16] LABS: Band Neutrophils % 9 %; Lymphocytes # (M) 1.41 k/uL (1.0-4.8); Metamyelocytes # (M) 1.01 k/uL (0); Metamyelocytes % 5 %; Monocytes # (M) 0.81 k/uL (0-1.0); Myelocytes # (M) 0.81 k/uL (0); Myelocytes % 4 %; Neutrophils % (M) 71 %; Nucleated Red Blood Cells 0 /100 WBC (0-0); Total Cells Counted 200
[2020-10-11] MEDS: FAMOTIDINE 20 MG/2 ML VIAL IV SCH ×2 (09:43→20:16)
[2020-10-11] MEDS: DEXAMETHASONE SOD PHOSPHATE 10 MG/ML 1 ML VIAL IV SCH (09:43)
--- NOTE | 2020-10-11 10:25 | P.PN ---
Subjective Progress Note Date: 10/11/20 Principal diagnosis: Cardiac arrhythmia This is a 60-year-old gentleman who was admitted to the hospital with COVID-19 infection and we consulted to see the patient for paroxysmal supraventricular tachycardia and also brief episode of atrial fibrillation with RVR. The patient was seen today October 112020. She still not doing well from a respiratory standpoint of view. She has been maintaining normal sinus mechanism on the current dose of metoprolol as well as amiodarone. I am going to add oral anticoagulation to the current medical regimen and follow-up with the patient. Objective - Vital Signs Vital signs: Vital Signs Temp 100.8 F H 10/11/20 04:00 Pulse 73 10/11/20 05:00 Resp 30 H 10/11/20 05:00 BP 137/67 10/11/20 05:00 Pulse Ox 94 L 10/11/20 05:00 Intake & Output 10/10/20 10/11/20 10/11/20 18:59 06:59 18:59 Intake Total 1135.239 7882.268 428.244 Output Total 774 793 275 Balance 343.798 596.268 153.244 Weight 124.9 kg Intake: IV 306 312 104 0.9 240 240 80 Pressure Bags 66 72 24 Intake, IV Titration 271.798 547.268 134.244 Amount Cisatracurium 200 mg In 134.244 Sodium Chloride 0.9% 180 ml @ 2 MCG/KG/MIN 14.916 mls/hr IV .[id number] [facility] Rx #:[id number] Heparin Sod,Pork in 0.45% 2.056 247.944 NaCl 25,000 unit In 0.45 % NaCl 1 250ml.bag @ 8. 097 UNITS/KG/HR 10 mls/hr IV .Q24H [facility] Rx#: [id number] propofoL 1,000 mg In 269.742 299.324 Empty Bag 1 bag @ Titrate IV .Q0M [facility] Rx#: [id number] Tube Feeding 480 440 160 Other 60 90 30 Output: Urine 774 793 275 Other: Voiding Method Indwelling Catheter Indwelling Catheter ABP, PAP, CO, CI - Last Documented Arterial Blood Pressure 129/51 - Labs CBC & Chem 7: 10/11/20 05:10 10/11/20 05:10 Labs: Abnormal Lab Results - Last 24 Hours (Table) 10/10/20 10/10/20 10/10/20 Range/Units 04:55 04:55 11:32 WBC (3.8-10.6) k/uL Hgb (11.4-16.0) gm/dL Neutrophils # (Manual) (1.3-7.7) k/uL Metamyelocytes # (Man) (0) k/uL Myelocytes # (Manual) (0) k/uL APTT (22.0-30.0) sec D-Dimer (<0.60) mg/L FEU ABG pCO2 (35-45) mmHg ABG pO2 (83-108) mmHg ABG HCO3 (21-25) mmol/L ABG Total CO2 (19-24) mmol/L ABG O2 Saturation (94-97) % Carbon Dioxide (22-30) mmol/L BUN (7-17) mg/dL Glucose (74-99) mg/dL POC Glucose (mg/dL) 144 H (75-99) mg/dL Calcium (8.4-10.2) mg/dL Ferritin 2680.2 H (10.0-291.0) ng/mL Lactate Dehydrogenase (313-618) U/L C-Reactive Protein (<10.0) mg/L Procalcitonin 0.14 H (0.02-0.09) ng/mL 10/10/20 10/10/20 10/11/20 Range/Units 12:00 17:07 05:10 WBC 20.2 H (3.8-10.6) k/uL Hgb 11.1 L (11.4-16.0) gm/dL Neutrophils # (Manual) 16.10 H (1.3-7.7) k/uL Metamyelocytes # (Man) 1.01 H (0) k/uL Myelocytes # (Manual) 0.81 H (0) k/uL APTT 63.6 H (22.0-30.0) sec D-Dimer (<0.60) mg/L FEU ABG pCO2 (35-45) mmHg ABG pO2 (83-108) mmHg ABG HCO3 (21-25) mmol/L ABG Total CO2 (19-24) mmol/L ABG O2 Saturation (94-97) % Carbon Dioxide (22-30) mmol/L BUN (7-17) mg/dL Glucose (74-99) mg/dL POC Glucose (mg/dL) 142 H (75-99) mg/dL Calcium (8.4-10.2) mg/dL Ferritin (10.0-291.0) ng/mL Lactate Dehydrogenase (313-618) U/L C-Reactive Protein (<10.0) mg/L Procalcitonin (0.02-0.09) ng/mL 10/11/20 10/11/20 10/11/20 Range/Units 05:10 05:10 06:10 WBC (3.8-10.6) k/uL Hgb (11.4-16.0) gm/dL Neutrophils # (Manual) (1.3-7.7) k/uL Metamyelocytes # (Man) (0) k/uL Myelocytes # (Manual) (0) k/uL APTT 54.2 H (22.0-30.0) sec D-Dimer 6.31 H (<0.60) mg/L FEU ABG pCO2 65 H (35-45) mmHg ABG pO2 67 L (83-108) mmHg ABG HCO3 36 H (21-25) mmol/L ABG Total CO2 38 H (19-24) mmol/L ABG O2 Saturation 93.1 L (94-97) % Carbon Dioxide 36 H (22-30) mmol/L BUN 54 H (7-17) mg/dL Glucose 122 H (74-99) mg/dL POC Glucose (mg/dL) (75-99) mg/dL Calcium 7.8 L (8.4-10.2) mg/dL Ferritin (10.0-291.0) ng/mL Lactate Dehydrogenase 4769 H (313-618) U/L C-Reactive Protein 10.5 H (<10.0) mg/L Procalcitonin (0.02-0.09) ng/mL Microbiology - Last 24 Hours (Table) 10/07/20 11:53 Gram Stain - Final Sputum Sputum Culture - Final Assessment and Plan Assessment: Assessment #1 COVID-19 infection #2 acute hypoxic respiratory failure #3 paroxysmal atrial fibrillation with only 1 brief episode #4 multiple comorbid conditions Plan #1 continue the current medical regimen including the current dose of metoprolol and amiodarone #2 DC heparin IV and start the patient on oral anticoagulation
--- NOTE | 2020-10-11 10:52 | XR ---
EXAMINATION TYPE: XR chest 1V portable DATE OF EXAM: 10/11/2020 COMPARISON: 10/10/2020 INDICATION: Tube placement TECHNIQUE: Single frontal view of the chest is obtained. FINDINGS: The heart size is normal. The pulmonary vasculature is normal. There is a endotracheal tube present with the tip above satish. Nasogastric transverse thorax. Left central venous catheter with tip in distal superior vena cava region. Diffuse increased infiltrate is present throughout the bilateral lung vivar. Findings are similar to comparison. IMPRESSION: 1. Stable diffuse increased lung markings can be compatible with atypical pneumonia. 2. Lines and catheters discussed above.
--- NOTE | 2020-10-11 12:44 | P.PN ---
Subjective Progress Note Date: 10/11/20 Principal diagnosis: Hypoxemic respiratory failure. On 10/05/2020 and patient seen in follow-up in the intensive care unit. She remains on BiPAP support with pressures of 14/60 FiO2 of 100% with a pulse ox between 90-97%, afebrile, a bit hypertensive, with systolic between 160-180 and diastolic in 90-100. Patient is status post Tocilizumab 800 mg IV piggyback infusion on 10/03/2020 and she has received 1 unit of convalescent plasma on 10/03/2020. Continues on Decadron 6 mg daily, Lovenox 40 mg daily, Pepcid, IV fluids 0.9 normal saline infusing at 25 ML per hour. Today's labs have been reviewed, d-dimer 3.6, B1 is 32, creatinine 0.81, CO2 is 33, the rest of the electrolytes were unremarkable, ferritin level is 1414, AST is 79, which has improved, and ALT is 41 which is relatively stable, up slightly from 39, but overall improving, LDH remains significantly elevated at 3977, CRP is 45.6. Chest x-ray shows diffuse bilateral infiltrates. On 10/07/1999 patient seen in follow-up in the intensive care unit. She remains on BiPAP support on which she is most of the time, with pressures of 14/6, 100% FiO2. Pulse ox is 95%, low-grade fevers with a temp of 99.4 axillary this morning, hemodynamically patient remains stable, not on any drips, 0.9 normal saline at 20 ML per hour, today's d-dimer is up to 22.82, and the patient was started on therapeutic doses of Lovenox 120 mg twice daily, however we will switch the patient to 0.5 mg/kg dosing twice daily. Today's inflammatory markers are continue to trend up, LDH is up to 4670, and a CK is 607, and CRP is down some to 25.1. Abdominal ultrasound was completed in view of elevated liver enzymes and it was a severely limited exam suggesting mostly a collapsed gallbladder containing multiple gallstones, bile duct measures were within normal limits. Today's chest x-ray showed diffuse pleural parenchymal changes correlating with diffuse pneumonia. Hemodynamically patient has been stable, maintaining normal sinus rhythm, echocardiogram showed normal LV function without significant valvular abnormalities, cardiology is following and has been adjusting beta blockers for better heart rate and blood pressure control. Progress note dated 10/07/2020. 60-year-old female, who was diagnosis with acute coronavirus infection, on September 23. Unfortunately, she developed acute COVID 19 pneumonia. In his been in the intensive care unit for a number of days. Currently, she is on BiPAP with settings of IPAP 14 and EPAP 6, and 100%. She is on saline at 20 mL an hour. Her respiratory status has clearly declined, and we did offer her intubation and mechanical ventilation. Unfortunately, she did not want intubation or mechanical ventilation. We did discuss this with her and her family members. Today, white count was 13.3, he lobe and 14, hematocrit 40.2, and platelet count 195,000. D-dimer is 34.10. Arterial blood gas shows a pO2 of 66, pCO2 of 43, and a pH of 7.46. Sodium 139, potassium 4.8 chloride 104, and CO2 31. Anion gap is 4, BUN 34, and creatinine 0.78. LDH is 6384. CK was 557, C-reactive protein is 17.1. N-terminal proBNP was 2180. Chest x-ray, shows diffuse bilateral infiltrates, which appear a bit worse. Progress note dated 10/08/2020. 60-year-old female, who is diagnosed with acute COVID 19 pneumonia. The patient tested positive and was diagnosed back on September 23. The patient's pneumonitis, has worsened in recent days, and the patient was on BiPAP for a number days, and 100%. Physician and nursing staff had ongoing discussions with the patient about the next step, which included intubation and mechanical ventilation, and the patient was adamant about not being placed on the mechanical ventilator. The patient's sister, apparently obtained a emergency guardianship from the court, and the patient who was initially a DO NOT INTUBATE, was then changed to a full code. As her respiratory status worsened, decision was made to go ahead and intubate the patient acting in her best interest. I did speak with the quality assurance auditor last night on the phone, and there is a hearing today at 3:00 PM. The information was given to me. A central line was placed today, as well as an arterial line, the patient remains on mechanical ventilator. We'll start tube feeds today. Her ventilator settings include a Lyme assist control mode, rate 30, tidal volume 400, FiO2 60%, PEEP 16. Arterial blood gases showed a PaO2 of 254, PaCO2 of 70, and a pH is 7.2. That blood gas was 100%, and a rate of 24. Repeat blood gases have been ordered. She's getting saline at 20 mL an hour, Nimbex at 2.4 mcg/kg/m, propofol at 40 mcg/kg/m, and she did receive some fluid resuscitation because of hypotension. 2 feedings will be started today. White count is 15.6, hemoglobin 13.8, hematocrit 40.5, and platelet count 143,000. Sodium 142, potassium 5.3, chloride 111, CO2 30, anion gap 1, BUN 48, and creatinine 0.92. Calcium is 7.3. Chest x-ray shows diffuse bilateral infiltrates. The central line is in good position. Progress note dated 10/09/2020. 60-year-old female, with a diagnosis of acute COVID 19 pneumonia. The patient tested positive over was diagnosed back on September 23 and unfortunately, the patient's oxygenation has worsened, and she was recently intubated and placed on the mechanical ventilator. Initially, and throughout her hospitalization before intubation, the patient was adamant about not going on the mechanical ventilator. Nonetheless, she is on it now, and settings include volume assist control mode, rate 30, tidal volume 400, FiO2 60%, and PEEP 16. Blood gases show pO2 of 75, pCO2 67, and a pH of 7.29. The patient's on saline at KVO, Nimbex at 0.4 mcg/kg/m, propofol at 40 mcg/kg/m and vital high protein at 20, with a goal of 40 mL an hour. Unfortunately, last night, she developed atrial fibrillation with RVR, and hypotension. Cardiology was called. They increased her metoprolol, and place her on an amiodarone drip at 1 g/m. The beta peterson was subsequently increased, and she'll be started on oral amiodarone today, at 200 mg twice a day. Finally, she was placed on a heparin drip. White count 12.9, hemoglobin 12.8, hematocrit 38.8, platelet count 127,000. D-dimer is 23.24. Sodium 143, potassium 5.3, chlorides 107, CO2 33, anion gap 3, BUN 49, and creatinine 0.87. LDH was 5465, and C-reactive protein was 17.6. Chest x-r ay shows diffuse bilateral infiltrates. Progress note dated 10/10/2020. 60-year-old female again seen in room 262. She is a diagnosis of hypoxemic respiratory failure secondary to COVID 19 pneumonia. The patient was intubated for respiratory failure on October 07. Initially, the patient did not want intubation and mechanical ventilation, and that was documented by number physicians and nurses for the first part of this past week. Anyway, she remains on volume assist control mode, rate of 30, tidal volume 400, FiO2 60%, and PEEP of 16. Blood gases show pO2 74, pCO2 of 67, a pH is 7.3. She remains on heparin, the weight based protocol, for the atrial fibrillation, saline at KVO, Nimbex at 1 mcg/kg/m, propofol at 45 mcg/kg/m, and vital high protein at 40 mL an hour, which is goal. White count 16.3, hemoglobin 12.6, hematocrit 39.6, and platelet count 166,000. D-dimer was 10.9. Sodium 142, potassium 5.2, chlorides 106, CO2 36, BUN 51, creatinine 0.95. LDH is 6124, and C-reactive protein is 11.7. Chest x-ray shows diffuse bilateral infiltrates, which are nonspecific. Chest x-ray my opinion is stable. Progress note dated 10/11/2020. 60-year-old female, again seen in room 262. The patient has a history of hypoxemic respiratory failure, secondary to COVID 19 pneumonia. The patient was intubated and mechanically ventilated on October 07, for respiratory failure. The patient actually did not want intubation mechanical ventilation, but her sister, obtained emergency guardianship, and insisted that the patient be intubated. Nonetheless, she remains on the mechanical ventilator, assist control mode, rate 30, tidal volume 400, FiO2 60%, and PEEP of 16. Arterial blood gases show pO2 of 67, pCO2 65, treated pH is 7.35. The patient is on saline at 20 mL an hour, propofol at 45 mcg/kg/m, heparin has been discontinued, Eliquis has been started, vital high protein at 40 mL an hour, which is goal. She will be proned today. White count 20.2, hemoglobin 11.1, hematocrit 35.1, platelet count 4000. PTT is 54.2, and d-dimer is 6.31. Sodium 143, potassium 5, chlorides 107, CO2 36, BUN 54, creatinine 0.98. LDH is 4769. C-reactive protein 10.5. Chest x- ray shows bilateral diffuse patchy infiltrates, and the x-ray my opinion is essentially unchanged. Objective - Vital Signs Vital signs: Vital Signs Temp 100.8 F H 10/11/20 04:00 Pulse 73 10/11/20 05:00 Resp 30 H 10/11/20 05:00 BP 137/67 10/11/20 05:00 Pulse Ox 94 L 10/11/20 05:00 Intake & Output 10/10/20 10/11/20 10/11/20 18:59 06:59 18:59 Intake Total 2492.674 4708.268 520.244 Output Total 774 793 425 Balance 343.798 596.268 95.244 Weight 124.9 kg Intake: IV 306 312 156 0.9 240 240 120 Pressure Bags 66 72 36 Intake, IV Titration 271.798 547.268 134.244 Amount Cisatracurium 200 mg In 134.244 Sodium Chloride 0.9% 180 ml @ 2 MCG/KG/MIN 14.916 mls/hr IV .[id number] [facility] Rx #:[id number] Heparin Sod,Pork in 0.45% 2.056 247.944 NaCl 25,000 unit In 0.45 % NaCl 1 250ml.bag @ 8. 097 UNITS/KG/HR 10 mls/hr IV .Q24H [facility] Rx#: [id number] propofoL 1,000 mg In 269.742 299.324 Empty Bag 1 bag @ Titrate IV .Q0M [facility] Rx#: [id number] Tube Feeding 480 440 200 Other 60 90 30 Output: Urine 774 793 425 Other: Voiding Method Indwelling Catheter Indwelling Catheter ABP, PAP, CO, CI - Last Documented Arterial Blood Pressure 129/51 - Exam The patient is currently intubated and sedated, mechanically ventilated. Nimbex has been discontinued. HEENT examination is grossly unremarkable. Oral endotracheal tube is noted. Neck supple. Full range of motion. No adenopathy thyromegaly or neck vein distention. A left internal jugular triple-lumen catheter is noted. Cardiovascular examination reveals an irregular rhythm and rate. S1-S2 normal. No S3 or S4. No discernible murmur noted. Heart rate 73 bpm. Lungs reveal coarse bilateral rhonchi and crackles. Breath sounds equal. No wheezes. Breath sounds are bit worse today. Exam is essentially unchanged. Abdomen soft bowel sounds are heard. No masses or tenderness. Extremities are intact. No cyanosis clubbing or edema. Skin is without rash or lesion. Neurologic examination could not be adequately assessed as the patient's currently sedated. - Labs CBC & Chem 7: 10/11/20 05:10 10/11/20 05:10 Labs: Abnormal Lab Results - Last 24 Hours (Table) 10/10/20 10/10/20 10/11/20 Range/Units 12:00 17:07 05:10 WBC 20.2 H (3.8-10.6) k/uL Hgb 11.1 L (11.4-16.0) gm/dL Neutrophils # (Manual) 16.10 H (1.3-7.7) k/uL Metamyelocytes # (Man) 1.01 H (0) k/uL Myelocytes # (Manual) 0.81 H (0) k/uL APTT 63.6 H (22.0-30.0) sec D-Dimer (<0.60) mg/L FEU ABG pCO2 (35-45) mmHg ABG pO2 (83-108) mmHg ABG HCO3 (21-25) mmol/L ABG Total CO2 (19-24) mmol/L ABG O2 Saturation (94-97) % Carbon Dioxide (22-30) mmol/L BUN (7-17) mg/dL Glucose (74-99) mg/dL POC Glucose (mg/dL) 142 H (75-99) mg/dL Calcium (8.4-10.2) mg/dL Lactate Dehydrogenase (313-618) U/L C-Reactive Protein (<10.0) mg/L 10/11/20 10/11/20 10/11/20 Range/Units 05:10 05:10 06:10 WBC (3.8-10.6) k/uL Hgb (11.4-16.0) gm/dL Neutrophils # (Manual) (1.3-7.7) k/uL Metamyelocytes # (Man) (0) k/uL Myelocytes # (Manual) (0) k/uL APTT 54.2 H (22.0-30.0) sec D-Dimer 6.31 H (<0.60) mg/L FEU ABG pCO2 65 H (35-45) mmHg ABG pO2 67 L (83-108) mmHg ABG HCO3 36 H (21-25) mmol/L ABG Total CO2 38 H (19-24) mmol/L ABG O2 Saturation 93.1 L (94-97) % Carbon Dioxide 36 H (22-30) mmol/L BUN 54 H (7-17) mg/dL Glucose 122 H (74-99) mg/dL POC Glucose (mg/dL) (75-99) mg/dL Calcium 7.8 L (8.4-10.2) mg/dL Lactate Dehydrogenase 4769 H (313-618) U/L C-Reactive Protein 10.5 H (<10.0) mg/L Microbiology - Last 24 Hours (Table) 10/07/20 11:53 Gram Stain - Final Sputum Sputum Culture - Final Assessment and Plan Assessment: #1. Acute hypoxic respiratory failure secondary to acute COVID 19 related pneumonitis, status post Tocilizumab and 1 unit of convalescent plasma on 10/03/2020, admitted to the ICU on 10/03/2020, remains on high flow oxygen with 15 L per high flow and 100% nonrebreather mask, intubated for worsening respiratory failure on 10/07/2020. #2. History of paroxysmal atrial fibrillation, currently in sinus rhythm #3. Hypovolemic hyponatremia, improved with hydration #4. Increased d-dimer, related to acute COVID 19 #5. Increased transaminases related to acute viral pneumonia. Ultrasound abdomen was completed showing multiple gallbladder stones, however total bilirubin level is normal at 0.5 #6. Recurrent atrial fibrillation with RVR, status post metoprolol, IV amiodarone, IV heparin, and now oral amiodarone. Plan: Plan dated 10/07/2020. We are long discussion with the patient about CODE STATUS and intubation with mechanical ventilation. Surprisingly, she does not want to be intubated. The patient will be given some additional sedatives, to see if we can calm her down a bit. Despite including narcotics, and/or Ativan, and or dexmedetomidine. Additional recommendations and suggestions are forthcoming. Prognosis is poor. We will continue to follow the patient and make recommendations were appropriate. Plan dated 10/08/2020. The patient's sister, petitioned the court for a emergency guardianship, and it was granted, and the patient was made a full code by her sister. The patient was intubated for worsening respiratory failure. The patient was adamant about not going on mechanical ventilation. We had numerous talks with her, both physicians and nurses. Currently, she remains on the mechanical ventilator. A central line and an arterial line were placed. Medications are reviewed. X- rays and labs are reviewed. We will continue to follow make appropriate rec ommendations were needed. Tube feedings were started today. Plan dated 10/09/2020. The patient was intubated on October 07, for worsening hypoxemic respiratory failure. Last night, she developed atrial fibrillation, with RVR, and hypotension. She received increasing doses of beta peterson, IV amiodarone, IV heparin, and oral amiodarone. Currently, she remains on chemical paralysis with Nimbex, and sedation with propofol. Tube feeds will be increase to goal of 40 mL an hour. Blood gases are reasonable and 60% FiO2 and 16 of PEEP. Prognosis remains poor. Additional recommendations and suggestions are forthcoming. We'll continue to follow and make recommendations were appropriate. Labs, x- rays, and medications are all reviewed. Plan dated 10/10/2020. The patient was intubated for worsening hypoxemic respiratory failure on October 07. She also has developed atrial fibrillation with RVR. For that she is on IV heparin she also had hypotension with that episode of atrial fibrillation. The patient is currently on beta blockers, and oral amiodarone. The patient's prognosis remains very guarded. She is getting nutrition at goal. Blood gases are reviewed. We will continue to follow along and make recommendations were appropriate. Labs, x-rays, and medications are reviewed. We will attempt to get the patient off of Nimbex today. Plan dated 10/11/2020. The Nimbex was discontinued yesterday. The patient remains on propofol, and heparin has been discontinued as well. The patient is now on a factor X a inhibitor. She remains on nutrition with high protein, at goal. Arterial blood gases are borderline. I spoke to the nurse about attempting to prone her today. If we do, should be for 16 hours. Labs, x-rays, and medications are reviewed. Prognosis is guarded. We will continue to follow make recommendations were appropriate. Time with Patient: Greater than 30
[2020-10-11] MEDS: SODIUM CHLORIDE 0.9% 1,000 ML IV SCH (14:16)
--- NOTE | 2020-10-11 17:19 | P.PN ---
Progress Note - Text Progress Note Date: 10/10/20 Presenting complaint Shortness of breath History of presenting complaint Patient is a 60-year-old female, follows with Dr. Herberth Hurd, with no known past medical history who presented to the ER secondary to shortness of breath and cough. She was diagnosed with COVID 19 on 09/23/20. In the ER she was saturating 85% on room air and was found to be in A. fib with RVR and heart rates 120 to 130. Initial labs showed d-dimer of 1.77, lymphocytes 0.5, sodium 132, carbon dioxide 19, BUN 25, AST 122, ALT 47, LDH 2894, and CRP to exceed 8.2. She was admitted and was started on Decadron. She was outside of the window for Remdesivir. She was started on a Cardizem drip as well as metoprolol orally for her A. fib. She was also started on a heparin drip. She's given fluids for her hyponatremia. Pulmonary was consulted. She was requiring a nonrebreather on admission and overnight on 10/03 she was requiring maximal therapy through an air follow along with her nonrebreather to maintain low normal O2 sats. She converted to normal sinus rhythm and her Cardizem drip was stopped. Cardiology was consulted for her A. fib. She was subsequently transferred to the ICU. She had reported some leg pain and venous Dopplers were negative in bilateral lower extremities heparin drip was stopped and she had converted to normal sinus mechanism and she was subsequently started on prophylactic Lovenox. Echocardiogram showed ejection fraction 55-60% with moderate LVH. She was unable to tolerated AIRVO and was started on BiPap. Patient opted to change her CODE STATUS to DO NOT INTUBATE (October 08 patient respiratory status declined. Patient's sister obtained an emergency guardianship through the court and after she discussed with Dr. Park he decided to intubate the patient. This morning patient is on propofol and Nimbex. But the FiO2 60 the PEEP 16. I did get a call from the nurse and also from the oncology social work for request for transfer to it was to [place] per sister and aerobics instructor Dr. Park for ECMO. I did speak to the admitting office of the day aerobics instructor , home with home I discussed the case at length. He said that the patient was not a candidate for transfer and can be managed here. I did give him Dr. Park's cell number for further conversation regarding his advice for management here.) Patient's again had an episode of paroxysmal atrial fibrillation Today ICU: On the ventilator. Drips: propofol Nimbex, IV heparin 2 feeding at 40 mL an hour. Patient had that episode of paroxysmal atrial fibrillation. Review of systems: Patient intubated Active Medications Acetaminophen (Acetaminophen Tab 325 Mg Tab) 650 mg PO Q6HR PRN PRN Reason: Mild Pain or Fever > 100.5 Albuterol Sulfate (Albuterol Hfa Inhaler) 2 puff INHALATION RT-Q4H [facility] Last Admin: 10/10/20 20:30 Dose: 2 puff Documented by: Albuterol Sulfate (Albuterol Hfa Inhaler) 2 puff INHALATION RT-QID PRN PRN Reason: Shortness Of Breath Or Wheezing Amiodarone HCl (Amiodarone 200 Mg Tab) 200 mg PO BID [facility] Last Admin: 10/10/20 21:12 Dose: 200 mg Documented by: Artificial Tears (Artificial Tears-Hypromellose Drops 15 Ml Btl) 2 drops BOTH EYES Q4H [facility] Last Admin: 10/10/20 21:12 Dose: 2 drops Documented by: Ascorbic Acid (Ascorbic Acid 500 Mg Tab) 1,000 mg PO DAILY [facility] Last Admin: 10/10/20 08:28 Dose: 1,000 mg Documented by: Chlorhexidine Gluconate (Chlorhexidine Gluconate 15 Ml Cup) 15 ml MUCOUS MEM BID [facility] Last Admin: 10/10/20 21:11 Dose: 15 ml Documented by: Cholecalciferol (Cholecalciferol 25 Mcg (1000 Iu) Tablet) 100 mcg PO DAILY [facility] Last Admin: 10/10/20 08:28 Dose: 100 mcg Documented by: Dexamethasone Sodium Phosphate (Dexamethasone Sod Phosphate 10 Mg/Ml 1 Ml Vial) 6 mg IV DAILY [facility] Last Admin: 10/10/20 08:28 Dose: 6 mg Documented by: Famotidine (Famotidine 20 Mg/2 Ml Vial) 20 mg IV BID [facility] Last Admin: 10/10/20 21:11 Dose: 20 mg Documented by: Heparin Sodium (Porcine) (Heparin Sodium 1,000 Un/Ml (10ml Vl)) 0 unit IV PER PROTOCOL PRN; Protocol PRN Reason: Low PTT Last Admin: 10/10/20 07:13 Dose: 3,100 unit Documented by: Sodium Chloride (Saline 0.9%) 1,000 mls @ 25 mls/hr IV .Q24H [facility] Last Admin: 10/10/20 15:12 Dose: 25 mls/hr Documented by: Propofol 1,000 mg/ IV Solution 100 mls @ 0 mls/hr IV .Q0M [facility]; Protocol Last Admin: 10/10/20 18:26 Dose: 45 mcg/kg/min, 33.48 mls/hr Documented by: Cisatracurium Besylate 200 mg/ (Sodium Chloride) 200 mls @ 14.916 mls/hr IV .[id number] [facility]; Protocol Last Admin: 10/10/20 14:15 Dose: 1 mcg/kg/min, 7.458 mls/hr Documented by: Heparin Sodium/Sodium Chloride (25,000 unit/ Sodium Chloride) 250 mls @ 10 mls/hr IV .Q24H [facility]; Protocol Last Titration: 10/10/20 07:12 Dose: 13.097 units/kg/hr, 16.175 mls/hr Documented by: Metoprolol Tartrate (Metoprolol Tartrate 50 Mg Tab) 100 mg PO BID [facility] Last Admin: 10/10/20 21:12 Dose: 100 mg Documented by: Morphine Sulfate (Morphine Sulfate 2 Mg/Ml Syringe) 2 mg IVP Q4H PRN PRN Reason: anxiety Last Admin: 10/07/20 22:17 Dose: 2 mg Documented by: Naloxone HCl (Naloxone 0.4 Mg/Ml 1 Ml Vial) 0.2 mg IV Q2M PRN PRN Reason: Opioid Reversal Ondansetron HCl (Ondansetron 4 Mg/2 Ml Vial) 4 mg IVP Q8HR PRN PRN Reason: Nausea And Vomiting Zinc Sulfate (Zinc Sulfate 220 Mg Cap) 220 mg PO DAILY [facility] Last Admin: 10/10/20 08:29 Dose: 220 mg Documented by: On examination: VITAL SIGNS: 98.7, 72, 30, 1 42 x 57, 94% on the ventilator. FiO2 of 60 GENERAL APPEARANCE: Sedated, intubated RESPIRATORY: Respiratory effort increased. Accessory muscles working Rest of the exam per pulmonary and nursing Investigations: October 10: WBC 16.3 hemoglobin 12.6 d-dimer 10.9 potassium 5.2 creatinine 0.95 CRP 11.7 October 09: WBC 12.9 hemoglobin 12.8 platelets 127 d-dimer 23.2 potassium 5.3 creatinine 0.87 CRP 17.6 pro-calcitonin 0.14 October 08: WBC 15.6 hemoglobin 13.8 which is 143. ABG pH 7.25 pCO2 65 pO2 92. Potassium 5.3 creatinine 0.9 to October 07: WBC 13.3 hemoglobin 14 platelets 195 potassium 4.8 creatinine 0.78. ABG: E87.46, pCO2 43, pO2 66 CRP 17.1 October 06: WBC 7.4 hemoglobin 13.2 platelets 238 d-dimer 22.8 potassium 5.3 creatinine 0.8 CRP 25.1 Abdominal ultrasound limited: Very limited exam. Possible gallstones. October 05: WBC 5.3 hemoglobin 12.9 platelets 260 d-dimer 3.65 potassium 4.9 creatinine 0.81 CRP 45.6 Chest x-ray film personally reviewed by me-[October 05]: Bilateral infiltrates more so in the lower zone Lower extremity Doppler ultrasound: Negative for DVT 2-D echocardiogram: Concentric LVH, EF 55-60% Admission labs: D-dimer 1.77 CRP 68.2 Assessment and plan: COVID 19 pneumonia with acute hypoxic respiratory failure,-not improving -Continue with Decadron, Zinc, vitamin C, vitamin D, on IV heparin [ Convolescent Plasma 10/03, Toci X 1 on 10/03 ] Acute hypoxic respiratory failure secondary to COVID 19 pneumonia,-not improving. Patient on ventilator support Paroxysmal atrial fibrillation, repeated episodes of rapid ventricular rate -Seen by cardiology. Continue with metoprolol. On IV amiodarone-changed to by mouth. IV heparin Transaminitis likely secondary to illness -Follow liver enzymes. ultrasound: Poor quality. Gallstones, asymptomatic Hyponatremia secondary decreased solute intake in addition to water. -Corrected Morbid obesity with BMI 41 -Structured outpatient weight loss Legal guardian: Krista patient's sister Confirmed by Judge Rashid Prognosis guarded. Continue current medication treatment plan.
--- NOTE | 2020-10-11 17:24 | P.PN ---
Progress Note - Text Progress Note Date: 10/11/20 Presenting complaint Shortness of breath History of presenting complaint Patient is a 60-year-old female, follows with Dr. Herberth Hurd, with no known past medical history who presented to the ER secondary to shortness of breath and cough. She was diagnosed with COVID 19 on 09/23/20. In the ER she was saturating 85% on room air and was found to be in A. fib with RVR and heart rates 120 to 130. Initial labs showed d-dimer of 1.77, lymphocytes 0.5, sodium 132, carbon dioxide 19, BUN 25, AST 122, ALT 47, LDH 2894, and CRP to exceed 8.2. She was admitted and was started on Decadron. She was outside of the window for Remdesivir. She was started on a Cardizem drip as well as metoprolol orally for her A. fib. She was also started on a heparin drip. She's given fluids for her hyponatremia. Pulmonary was consulted. She was requiring a nonrebreather on admission and overnight on 10/03 she was requiring maximal therapy through an air follow along with her nonrebreather to maintain low normal O2 sats. She converted to normal sinus rhythm and her Cardizem drip was stopped. Cardiology was consulted for her A. fib. She was subsequently transferred to the ICU. She had reported some leg pain and venous Dopplers were negative in bilateral lower extremities heparin drip was stopped and she had converted to normal sinus mechanism and she was subsequently started on prophylactic Lovenox. Echocardiogram showed ejection fraction 55-60% with moderate LVH. She was unable to tolerated AIRVO and was started on BiPap. Patient opted to change her CODE STATUS to DO NOT INTUBATE (October 08 patient respiratory status declined. Patient's sister obtained an emergency guardianship through the court and after she discussed with Dr. Park he decided to intubate the patient. This morning patient is on propofol and Nimbex. But the FiO2 60 the PEEP 16. I did get a call from the nurse and also from the aids social worker for request for transfer to it was to [place] per sister and chemist inorganic Dr. Park for ECMO. I did speak to the admitting office of the day chemist [employer] , home with home I discussed the case at length. He said that the patient was not a candidate for transfer and can be managed here. I did give him Dr. Park's cell number for further conversation regarding his advice for management here.) Patient's again had an episode of paroxysmal atrial fibrillation Today ICU: On the ventilator 60/16. Drips: Filibertoritiki Brianbex, started on eliquis 2 feeding held earlier this patient has been made prone-remains in sinus rhythm Review of systems: Patient intubated Active Medications Acetaminophen (Acetaminophen Tab 325 Mg Tab) 650 mg PO Q6HR PRN PRN Reason: Mild Pain or Fever > 100.5 Albuterol Sulfate (Albuterol Hfa Inhaler) 2 puff INHALATION RT-Q4H [facility] Last Admin: 10/11/20 16:20 Dose: 2 puff Documented by: Albuterol Sulfate (Albuterol Hfa Inhaler) 2 puff INHALATION RT-QID PRN PRN Reason: Shortness Of Breath Or Wheezing Amiodarone HCl (Amiodarone 200 Mg Tab) 200 mg PO BID [facility] Last Admin: 10/11/20 08:06 Dose: 200 mg Documented by: Apixaban (Apixaban 5 Mg Tab) 5 mg PO BID [facility] Last Admin: 10/11/20 08:05 Dose: 5 mg Documented by: Artificial Tears (Artificial Tears-Hypromellose Drops 15 Ml Btl) 2 drops BOTH E YES Q4H [facility] Last Admin: 10/11/20 15:48 Dose: 2 drops Documented by: Ascorbic Acid (Ascorbic Acid 500 Mg Tab) 1,000 mg PO DAILY [facility] Last Admin: 10/11/20 08:05 Dose: 1,000 mg Documented by: Chlorhexidine Gluconate (Chlorhexidine Gluconate 15 Ml Cup) 15 ml MUCOUS MEM BID [facility] Last Admin: 10/11/20 08:05 Dose: 15 ml Documented by: Cholecalciferol (Cholecalciferol 25 Mcg (1000 Iu) Tablet) 100 mcg PO DAILY [facility] Last Admin: 10/11/20 08:05 Dose: 100 mcg Documented by: Dexamethasone Sodium Phosphate (Dexamethasone Sod Phosphate 10 Mg/Ml 1 Ml Vial) 6 mg IV DAILY [facility] Last Admin: 10/11/20 09:43 Dose: 6 mg Documented by: Famotidine (Famotidine 20 Mg/2 Ml Vial) 20 mg IV BID [facility] Last Admin: 10/11/20 09:43 Dose: 20 mg Documented by: Sodium Chloride (Saline 0.9%) 1,000 mls @ 25 mls/hr IV .Q24H [facility] Last Admin: 10/11/20 14:16 Dose: 25 mls/hr Documented by: Propofol 1,000 mg/ IV Solution 100 mls @ 0 mls/hr IV .Q0M [facility]; Protocol Last Admin: 10/11/20 14:18 Dose: 45 mcg/kg/min, 33.48 mls/hr Documented by: Cisatracurium Besylate 200 mg/ (Sodium Chloride) 200 mls @ 14.916 mls/hr IV .[id number] [facility]; Protocol Last Titration: 10/11/20 13:53 Dose: 1 mcg/kg/min, 7.458 mls/hr Documented by: Metoprolol Tartrate (Metoprolol Tartrate 50 Mg Tab) 100 mg PO BID [facility] Last Admin: 10/11/20 08:05 Dose: 100 mg Documented by: Morphine Sulfate (Morphine Sulfate 2 Mg/Ml Syringe) 2 mg IVP Q4H PRN PRN Reason: anxiety Last Admin: 10/07/20 22:17 Dose: 2 mg Documented by: Naloxone HCl (Naloxone 0.4 Mg/Ml 1 Ml Vial) 0.2 mg IV Q2M PRN PRN Reason: Opioid Reversal Ondansetron HCl (Ondansetron 4 Mg/2 Ml Vial) 4 mg IVP Q8HR PRN PRN Reason: Nausea And Vomiting Zinc Sulfate (Zinc Sulfate 220 Mg Cap) 220 mg PO DAILY [facility] Last Admin: 10/11/20 08:05 Dose: 220 mg Documented by: On examination: VITAL SIGNS: 100.2, 71, 30, 144/63, 96% on the ventilator GENERAL APPEARANCE: Sedated, intubated , prone RESPIRATORY: Respiratory effort increased. Accessory muscles working Rest of the exam per pulmonary and nursing Investigations: October 11: WBC 20.2 hemoglobin 11.1 d-dimer 6.31 potassium 5 creatinine 0.98 CRP 10.5 October 10: WBC 16.3 hemoglobin 12.6 d-dimer 10.9 potassium 5.2 creatinine 0.95 CRP 11.7 October 09: WBC 12.9 hemoglobin 12.8 platelets 127 d-dimer 23.2 potassium 5.3 creatinine 0.87 CRP 17.6 pro-calcitonin 0.14 October 08: WBC 15.6 hemoglobin 13.8 which is 143. ABG pH 7.25 pCO2 65 pO2 92. Potassium 5.3 creatinine 0.9 to October 07: WBC 13.3 hemoglobin 14 platelets 195 potassium 4.8 creatinine 0.78. ABG: E87.46, pCO2 43, pO2 66 CRP 17.1 October 06: WBC 7.4 hemoglobin 13.2 platelets 238 d-dimer 22.8 potassium 5.3 creatinine 0.8 CRP 25.1 Abdominal ultrasound limited: Very limited exam. Possible gallstones. October 05: WBC 5.3 hemoglobin 12.9 platelets 260 d-dimer 3.65 potassium 4.9 creatinine 0.81 CRP 45.6 Chest x-ray film personally reviewed by me-[October 05]: Bilateral infiltrates more so in the lower zone Lower extremity Doppler ultrasound: Negative for DVT 2-D echocardiogram: Concentric LVH, EF 55-60% Admission labs: D-dimer 1.77 CRP 68.2 Assessment and plan: COVID 19 pneumonia with acute hypoxic respiratory failure,-not improving -Continue with Decadron, Zinc, vitamin C, vitamin D, IV heparin changed to eliquis [ Convolescent Plasma 10/03, Toci X 1 on 10/03 ] Acute hypoxic respiratory failure secondary to COVID 19 pneumonia,-not improving. Remains on ventilator support Paroxysmal atrial fibrillation, repeated episodes of rapid ventricular rate- currently sinus rhythm -Seen by cardiology. Continue with metoprolol. On IV amiodarone-changed to by mouth. IV heparin-changed to eliquis Transaminitis likely secondary to illness -Follow liver enzymes. ultrasound: Poor quality. -Gallstones, asymptomatic Hyponatremia secondary decreased solute intake in addition to water. -Corrected -Morbid obesity with BMI 41 outpatient weight loss -Legal guardian: Krista patient's sister Confirmed by Judge Rashid Prognosis guarded. Remains critically ill. Follow-up in [facility]
[2020-10-11] MEDS: DILTIAZEM 125 MG in SODIUM CHLORIDE 0.9% 100 ML IV SCH (21:57)
[2020-10-12] MEDS: ALBUTEROL HFA INHALER INHALATION SCH ×7 (01:20→23:49)
[2020-10-12] MEDS: ARTIFICIAL TEARS-HYPROMELLOSE DROPS 15 ML BTL BOTH EYES SCH ×6 (02:11→20:30)
[2020-10-12 04:57] LABS: Basophils # (A) 0.2 k/uL (0-0.2); Basophils % (A) 1 %; Eosinophils # (A) 0.1 k/uL (0-0.7); Eosinophils % (A) 1 %; HCT 36.5 % (34.0-46.0); HGB 12.3 gm/dL (11.4-16.0); Lymphocytes % (A) 4 %; MCH 29.7 pg (25.0-35.0); MCHC 33.7 g/dL (31.0-37.0); Monocytes # (A) 0.5 k/uL (0-1.0); Monocytes % (A) 2 %; Neutrophils # (A) 21.8 k/uL (1.3-7.7); Neutrophils % (A) 92 %; Platelet Count 188 k/uL (150-450); RBC 4.15 m/uL (3.80-5.40); RDW 14.6 % (11.5-15.5); WBC 23.8 k/uL (3.8-10.6)
[2020-10-12 05:15] LABS: C Reactive Protein 9.4 mg/L (<10.0); Potassium 5.8 mmol/L (3.5-5.1)
[2020-10-12] MEDS: DILTIAZEM 125 MG in SODIUM CHLORIDE 0.9% 100 ML IV SCH ×2 (05:46→15:41)
[2020-10-12 06:28] LABS: ABG Base Excess 7.2 mmol/L; ABG HCO3 33 mmol/L (21-25); ABG Oxygen Saturation 98.4 % (94-97); ABG PCO2 63 mmHg (35-45); ABG PH 7.33 (7.35-7.45); ABG PO2 122 mmHg (83-108); ABG TCO2 35 mmol/L (19-24); Allen Test Performed? Yes
[2020-10-12] MEDS ORDERED: DEXTROSE 5% IN WATER 100 ML with AMIODARONE 150 MG IV ONE (06:38)
--- NOTE | 2020-10-12 06:39 | P.PN ---
Subjective Progress Note Date: 10/12/20 On today's evaluation of 10/12/2020 seeing this patient for a follow-up. Is a 60-year-old male patient with COVID 19 pneumonia. Pneumonia and secondary hypoxic respiratory failure. The patient was intubated and placed on a mechanical ventilator. The patient was admitted to the ICU on 10/03/2020 and the patient was extubated on 10/07/2020. Initially the patient was on high flow oxygen which she failed and subsequently his condition progressed and the patient has to be intubated and placed on a mechanical ventilator. The patient has already received 2 units of convalescent plasma, the patient has received Tocilizumab and the patient is currently on steroids. On today's evaluation, the patient is sedated with propofol at 45 mcg/kg per minute and the patient is calm and comfortable successful mechanical ventilator. Propofol is running at 45 mics respiratory per minute. The patient was paralyzed earlier with Nimbex and this was discontinued and he had to be placed back and the patient is currently back on nimbex 1 mcg/kg per minute.. The patient is also intubated on a mechanical ventilator within assist-control at the rate of 30, FiO2 of 60%, PEEP 16 with a tidal volume of 400. Blood gases were noted. The ABG from this morning showed a pH of 7.32 with a pCO2 of 62 and pO2 of 122. The chest x-ray from today is unchanged and the patient has bilateral pulmonary infiltrates more so on the right lower lobe. ET tube is in a good location. As for the blood work, the patient has a white cell count of 23 with a hemoglobin of 12 and a d- dimer of 8.66, BUN is a 50 with a creatinine of 0.9, LDH level is 4302 and a CRP level is at 9.4. The patient is hemodynamically stable on no pressors. Patient was being performed earlier and currently is in a supine body position. The chest x-ray from today showing diffuse breath and pulmonary infiltrates and ET tube is in a good location. The patient is on a enteral feeding with vital high protein at the rate of 40 mL an hour. The neck fluid balance over the past 24 hours is -226 mL and there are no signs of any significant fluid overload. Producing adequate amount of urine output. The cardiac rhythm is A. fib/flutter and the patient is currently on Eliquis. The peak airway pressure is 34 anesthetic pressures around 33. Objective - Vital Signs Vital signs: Vital Signs Temp 98.1 F 10/12/20 00:00 Pulse 149 H 10/12/20 02:00 Resp 30 H 10/12/20 02:00 BP 143/63 10/11/20 13:00 Pulse Ox 98 10/12/20 02:00 Intake & Output 10/11/20 10/11/20 10/12/20 06:59 18:59 06:59 Intake Total 1389.268 920.372 428.424 Output Total 793 1175 400 Balance 596.268 -254.628 28.424 Weight 124.9 kg Intake: IV 312 338 130 0.9 240 260 100 Pressure Bags 72 78 30 Intake, IV Titration 547.268 352.372 298.424 Amount Cisatracurium 200 mg In 167.556 Sodium Chloride 0.9% 180 ml @ 2 MCG/KG/MIN 14.916 mls/hr IV .[id number] [facility] Rx #:[id number] Diltiazem 125 mg In 96.75 Sodium Chloride 0.9% 100 ml @ 5 MG/HR 5 mls/hr IV .Q24H [facility] Rx#:[id number] Heparin Sod,Pork in 0.45% 247.944 NaCl 25,000 unit In 0.45 % NaCl 1 250ml.bag @ 8. 097 UNITS/KG/HR 10 mls/hr IV .Q24H [facility] Rx#: [id number] propofoL 1,000 mg In 299.324 184.816 201.674 Empty Bag 1 bag @ Titrate IV .Q0M [facility] Rx#: [id number] Tube Feeding 440 200 Other 90 30 Output: Urine 793 1175 400 Other: Voiding Method Indwelling Catheter Indwelling Catheter Indwelling Catheter ABP, PAP, CO, CI - Last Documented Arterial Blood Pressure 109/71 - Exam The patient is currently intubated and sedated, mechanically ventilated. Nimbex and propofol are still running for sedation and paralysis HEENT examination is grossly unremarkable. Oral endotracheal tube is noted. Neck supple. Full range of motion. No adenopathy thyromegaly or neck vein distention. A left internal jugular triple-lumen catheter is noted. Cardiovascular examination reveals an irregular rhythm and rate. Irregular S1- S2 and consistent with atrial fibrillation/flutter. No S3 or S4. No discernible murmur noted. Lungs reveal coarse bilateral rhonchi and crackles. Breath sounds equal. No wheezes. Breath sounds are bit worse today. Exam is essentially unchanged. Abdomen soft bowel sounds are heard. No masses or tenderness. Extremities are intact. No cyanosis clubbing or edema. Skin is without rash or lesion. Neurologic examination could not be adequately assessed as the patient's currently sedated. - Labs CBC & Chem 7: 10/12/20 04:40 10/12/20 04:40 Labs: Abnormal Lab Results - Last 24 Hours (Table) 10/11/20 10/11/20 10/12/20 Range/Units 05:10 05:10 04:40 WBC (3.8-10.6) k/uL Neutrophils # (1.3-7.7) k/uL Neutrophils # (Manual) 16.10 H (1.3-7.7) k/uL Metamyelocytes # (Man) 1.01 H (0) k/uL Myelocytes # (Manual) 0.81 H (0) k/uL D-Dimer (<0.60) mg/L FEU Potassium 5.8 H (3.5-5.1) mmol/L Carbon Dioxide 36 H 36 H (22-30) mmol/L BUN 54 H 50 H (7-17) mg/dL Glucose 122 H 123 H (74-99) mg/dL Calcium 7.8 L 8.0 L (8.4-10.2) mg/dL Lactate Dehydrogenase 4769 H (313-618) U/L C-Reactive Protein 10.5 H (<10.0) mg/L 10/12/20 10/12/20 Range/Units 04:40 04:40 WBC 23.8 H (3.8-10.6) k/uL Neutrophils # 21.8 H (1.3-7.7) k/uL Neutrophils # (Manual) (1.3-7.7) k/uL Metamyelocytes # (Man) (0) k/uL Myelocytes # (Manual) (0) k/uL D-Dimer 8.66 H (<0.60) mg/L FEU Potassium (3.5-5.1) mmol/L Carbon Dioxide (22-30) mmol/L BUN (7-17) mg/dL Glucose (74-99) mg/dL Calcium (8.4-10.2) mg/dL Lactate Dehydrogenase (313-618) U/L C-Reactive Protein (<10.0) mg/L Assessment and Plan Plan: #1. Acute hypoxic respiratory failure secondary to acute COVID 19 related pneumonitis, status post Tocilizumab and 1 unit of convalescent plasma on 10/03/2020, admitted to the ICU on 10/03/2020, intubated for worsening respiratory failure on 10/07/2020. The patient remains on Decadron 6 mg IV every 24 hours. The patient is sedated and currently she is off paralytics and the patient's inflammatory markers are quite elevated. The patient is on Eliquis for anticoagulation especially with her underlying atrial fibrillation/flutter. #2 History of paroxysmal atrial fibrillation, currently in sinus rhythm , currently on oral amiodarone and metoprolol. The patient is having runs of A. fib flutter intermittently during the day and this morning she is in A. fib flutter. The patient is on a combination of amiodarone and metoprolol for rate control. Cardizem was also started at the rate of 50 mg an hour for rate control. #3. Hypovolemic hyponatremia, improved with hydration #4. Increased d-dimer, related to acute COVID 19 #5. Increased transaminases related to acute viral pneumonia. Ultrasound abdomen was completed showing multiple gallbladder stones, however total bilirubin level is normal at 0.5 Plan: Continue ventilator support Wean down the FiO2 down to 50% and work down the FiO2 to maintain saturation above 90% Keep sedation with propofol Nimbex for paralysis and give the patient paralytic holiday today later on once the condition is more stable Continue Decadron 6 mg IV every 24 hours Continue Eliquis for anticoagulation Continue enteral feeding for nutritional support Monitor inflammatory markers, d-dimer was elevated LDH is also elevated Cardiac rhythm is currently A. fib/flutter and the patient is on amiodarone and metoprolol combination, and the patient is on a Cardizem drip at 15 mg an hour for rate control mode given another dose of amiodarone 150 mg IV We'll continue to follow. Condition is critical Physical care evaluation that was on a more than 30 minutes Time with Patient: Greater than 30
[2020-10-12] MEDS: CISATRACURIUM 200 MG in SODIUM CHLORIDE 0.9% 180 ML IV SCH ×2 (06:45→15:42)
[2020-10-12] MEDS: ASCORBIC ACID 500 MG TAB PO SCH (07:47)
[2020-10-12] MEDS: AMIODARONE 200 MG TAB PO SCH (07:48)
[2020-10-12] MEDS: ZINC SULFATE 220 MG CAP PO SCH (07:48)
[2020-10-12] MEDS: METOPROLOL TARTRATE 50 MG TAB PO SCH ×2 (07:48→17:29)
[2020-10-12] MEDS: APIXABAN 5 MG TAB PO SCH ×2 (07:48→19:30)
[2020-10-12] MEDS: CHLORHEXIDINE GLUCONATE 15 ML CUP MUCOUS MEM SCH ×2 (07:48→19:30)
[2020-10-12] MEDS: FAMOTIDINE 20 MG/2 ML VIAL IV SCH ×2 (07:48→19:30)
[2020-10-12] MEDS: DEXAMETHASONE SOD PHOSPHATE 10 MG/ML 1 ML VIAL IV SCH (07:48)
[2020-10-12] MEDS ORDERED: AMIODARONE 360 MG in DEXTROSE 5% IN WATER 200 ML IV ONE ×2 (07:59)
--- NOTE | 2020-10-12 09:08 | XR ---
EXAMINATION TYPE: XR chest 1V portable DATE OF EXAM: 10/12/2020 COMPARISON: 10/11/2020 HISTORY: Tube placement TECHNIQUE: Single frontal view of the chest is obtained. FINDINGS: ET and NG tube stable. Central line stable. Diffuse bilateral predominantly interstitial i nfiltrate stable. Apical pleural thickening. Atherosclerotic change aorta. Calcific tendinosis of the right shoulder. Heart size normal. No sizable pleural effusion. No pneumothorax. IMPRESSION: 1. Stable diffuse interstitial infiltrates
[2020-10-12] MEDS: NOREPINEPHRINE 4 MG in SODIUM CHLORIDE 0.9% 250 ML IV SCH (09:21)
[2020-10-12 09:48] LABS: Ferritin 1237.9 ng/mL (10.0-291.0)
--- NOTE | 2020-10-12 10:51 | P.PN ---
Subjective This is a 60-year-old female we are following secondary to an episode of A. fib with RVR. She was maintaining sinus mechanism until early this morning when she went into A. fib with RVR. Heart rates are in the 140-160 range. Blood pressure 109/54. She has been initiated on Cardizem drip as well as an amiodarone bolus per pulmonary care team. Laboratory data reviewed, WBC 23.8, hemoglobin 12.3, platelets 188, sodium 143, potassium 5.8, creatinine 0.97. Currently maintained on amiodarone 200 mg twice a day, Eliquis 5 mg twice a day, Cardizem 15 mg per hour and metoprolol 100 mg twice a day. 24 hour urine output 1820 mL's. GENERAL: No acute distress, maintained on mechanical ventilation ASSESSMENT Paroxysmal atrial fibrillation/typical atrial flutter COVID 19 Acute hypoxic respiratory failure PLAN Change amiodarone to IV infusion. Decrease cardizem to 10 mg/hr due to hypotension. Continue lopressor as ordered. Continue eliquis for thromboembolic protection. Nurse Practitioner note has been reviewed, I agree with a documented findings and plan of care. Patient was seen and examined. Objective - Vital Signs Vital signs: Vital Signs Temp 100.4 F H 10/12/20 04:00 Pulse 144 H 10/12/20 07:00 Resp 29 H 10/12/20 07:00 BP 143/63 10/11/20 13:00 Pulse Ox 98 10/12/20 07:00 Intake & Output 10/11/20 10/12/20 10/12/20 18:59 06:59 18:59 Intake Total 920.372 850.216 102.29 Output Total 1175 645 35 Balance -254.628 205.216 67.29 Intake: IV 338 286 26 0.9 260 220 20 Pressure Bags 78 66 6 Intake, IV Titration 352.372 524.216 36.29 Amount Cisatracurium 200 mg In 167.556 125.792 Sodium Chloride 0.9% 180 ml @ 2 MCG/KG/MIN 14.916 mls/hr IV .[id number] [facility] Rx #:[id number] Diltiazem 125 mg In 96.75 33.5 Sodium Chloride 0.9% 100 ml @ Titrate IV .Q24H [facility] Rx#:[id number] propofoL 1,000 mg In 184.816 301.674 2.79 Empty Bag 1 bag @ Titrate IV .Q0M [facility] Rx#: [id number] Tube Feeding 200 40 40 Other 30 Output: Urine 1175 645 35 Other: Voiding Method Indwelling Catheter Indwelling Catheter ABP, PAP, CO, CI - Last Documented Arterial Blood Pressure 109/54 - Labs CBC & Chem 7: 10/12/20 04:40 10/12/20 04:40 Labs: Abnormal Lab Results - Last 24 Hours (Table) 10/12/20 10/12/20 10/12/20 Range/Units 04:40 04:40 04:40 WBC 23.8 H (3.8-10.6) k/uL Neutrophils # 21.8 H (1.3-7.7) k/uL D-Dimer 8.66 H (<0.60) mg/L FEU ABG pH (7.35-7.45) ABG pCO2 (35-45) mmHg ABG pO2 (83-108) mmHg ABG HCO3 (21-25) mmol/L ABG Total CO2 (19-24) mmol/L ABG O2 Saturation (94-97) % Potassium 5.8 H (3.5-5.1) mmol/L Carbon Dioxide 36 H (22-30) mmol/L BUN 50 H (7-17) mg/dL Glucose 123 H (74-99) mg/dL Calcium 8.0 L (8.4-10.2) mg/dL Ferritin 1237.9 H (10.0-291.0) ng/mL Lactate Dehydrogenase 4302 H (313-618) U/L 10/12/20 Range/Units 06:20 WBC (3.8-10.6) k/uL Neutrophils # (1.3-7.7) k/uL D-Dimer (<0.60) mg/L FEU ABG pH 7.33 L (7.35-7.45) ABG pCO2 63 H (35-45) mmHg ABG pO2 122 H (83-108) mmHg ABG HCO3 33 H (21-25) mmol/L ABG Total CO2 35 H (19-24) mmol/L ABG O2 Saturation 98.4 H (94-97) % Potassium (3.5-5.1) mmol/L Carbon Dioxide (22-30) mmol/L BUN (7-17) mg/dL Glucose (74-99) mg/dL Calcium (8.4-10.2) mg/dL Ferritin (10.0-291.0) ng/mL Lactate Dehydrogenase (313-618) U/L
[2020-10-12] MEDS: CHOLECALCIFEROL 25 MCG (1000 IU) TABLET PO SCH (13:08)
[2020-10-12] MEDS: SODIUM CHLORIDE 0.9% 1,000 ML IV SCH (13:09)
[2020-10-12] MEDS: ACETAMINOPHEN TAB 325 MG TAB PO PRN (13:16)
[2020-10-12] MEDS: AMIODARONE 450 MG in DEXTROSE 5% IN WATER 250 ML IV SCH ×2 (15:41)
[2020-10-12] MEDS ORDERED: CEFEPIME 2 GM in SODIUM CHLORIDE 0.9% 50 ML IVPB SCH (16:45)
[2020-10-12] MEDS: CEFEPIME 2 GM in SODIUM CHLORIDE 0.9% 100 ML IVPB SCH (17:33)
[2020-10-12] MEDS ORDERED: SODIUM POLYSTYRENE SULFONATE 15 GM/60 ML BOTTLE PO STA (21:37)
--- NOTE | 2020-10-12 21:39 | P.PN ---
Progress Note - Text Progress Note Date: 10/12/20 Presenting complaint Shortness of breath History of presenting complaint Patient is a 60-year-old female, follows with Dr. Herberth Hurd, with no known past medical history who presented to the ER secondary to shortness of breath and cough. She was diagnosed with COVID 19 on 09/23/20. In the ER she was saturating 85% on room air and was found to be in A. fib with RVR and heart rates 120 to 130. Initial labs showed d-dimer of 1.77, lymphocytes 0.5, sodium 132, carbon dioxide 19, BUN 25, AST 122, ALT 47, LDH 2894, and CRP to exceed 8.2. She was admitted and was started on Decadron. She was outside of the window for Remdesivir. She was started on a Cardizem drip as well as metoprolol orally for her A. fib. She was also started on a heparin drip. She's given fluids for her hyponatremia. Pulmonary was consulted. She was requiring a nonrebreather on admission and overnight on 10/03 she was requiring maximal therapy through an air follow along with her nonrebreather to maintain low normal O2 sats. She converted to normal sinus rhythm and her Cardizem drip was stopped. Cardiology was consulted for her A. fib. She was subsequently transferred to the ICU. She had reported some leg pain and venous Dopplers were negative in bilateral lower extremities heparin drip was stopped and she had converted to normal sinus mechanism and she was subsequently started on prophylactic Lovenox. Echocardiogram showed ejection fraction 55-60% with moderate LVH. She was unable to tolerated AIRVO and was started on BiPap. Patient opted to change her CODE STATUS to DO NOT INTUBATE (October 08 patient respiratory status declined. Patient's sister obtained an emergency guardianship through the court and after she discussed with Dr. Park he decided to intubate the patient. This morning patient is on propofol and Nimbex. But the FiO2 60 the PEEP 16. I did get a call from the nurse and also from the director of social media marketing for request for transfer to it was to [place] per sister and sand cutter Dr. Park for ECMO. I did speak to the admitting office of the day sand cutter , home with home I discussed the case at length. He said that the patient was not a candidate for transfer and can be managed here. I did give him Dr. Park's cell number for further conversation regarding his advice for management here.) Patient's again had an episode of paroxysmal atrial fibrillation Today ICU: woman back in 2 atrial fibrillation last night and has remained in same. Started on Cardizem drip at 10 mg an hour. IV amiodarone at 1 mg an hour. Remains on levo fed. IV to prevent. Nimbex is being taken off. 2 feeding present. On the ventilator with FiO2 40 and a PEEP of 16. Review of systems: Patient intubated Active Medications Acetaminophen (Acetaminophen Tab 325 Mg Tab) 650 mg PO Q6HR PRN PRN Reason: Mild Pain or Fever > 100.5 Last Admin: 10/12/20 13:16 Dose: 650 mg Documented by: Albuterol Sulfate (Albuterol Hfa Inhaler) 2 puff INHALATION RT-Q4H [facility] Last Admin: 10/12/20 19:39 Dose: 2 puff Documented by: Albuterol Sulfate (Albuterol Hfa Inhaler) 2 puff INHALATION RT-QID PRN PRN Reason: Shortness Of Breath Or Wheezing Apixaban (Apixaban 5 Mg Tab) 5 mg PO BID [facility] Last Admin: 10/12/20 19:30 Dose: 5 mg Documented by: Artificial Tears (Artificial Tears-Hypromellose Drops 15 Ml Btl) 2 drops BOTH EYES Q4H [facility] Last Admin: 10/12/20 20:30 Dose: 2 drops Documented by: Ascorbic Acid (Ascorbic Acid 500 Mg Tab) 1,000 mg PO DAILY [facility] Last Admin: 10/12/20 07:47 Dose: 1,000 mg Documented by: Chlorhexidine Gluconate (Chlorhexidine Gluconate 15 Ml Cup) 15 ml MUCOUS MEM BID [facility] Last Admin: 10/12/20 19:30 Dose: 15 ml Documented by: Cholecalciferol (Cholecalciferol 25 Mcg (1000 Iu) Tablet) 100 mcg PO DAILY [facility] Last Admin: 10/12/20 13:08 Dose: 100 mcg Documented by: Dexamethasone Sodium Phosphate (Dexamethasone Sod Phosphate 10 Mg/Ml 1 Ml Vial) 6 mg IV DAILY [facility] Last Admin: 10/12/20 07:48 Dose: 6 mg Documented by: Famotidine (Famotidine 20 Mg/2 Ml Vial) 20 mg IV BID [facility] Last Admin: 10/12/20 19:30 Dose: 20 mg Documented by: Sodium Chloride (Saline 0.9%) 1,000 mls @ 25 mls/hr IV .Q24H [facility] Last Admin: 10/12/20 13:09 Dose: 25 mls/hr Documented by: Propofol 1,000 mg/ IV Solution 100 mls @ 0 mls/hr IV .Q0M [facility]; Protocol Last Admin: 10/12/20 18:30 Dose: 50 mcg/kg/min, 37.47 mls/hr Documented by: Cisatracurium Besylate 200 mg/ (Sodium Chloride) 200 mls @ 14.916 mls/hr IV .[id number] [facility]EN; Protocol Last Admin: 10/12/20 15:42 Dose: 1 mcg/kg/min, 7.458 mls/hr Documented by: Diltiazem HCl 125 mg/ Sodium (Chloride) 125 mls @ 0 mls/hr IV .Q24H [facility] Last Admin: 10/12/20 15:41 Dose: 10 mg/hr, 10 mls/hr Documented by: Amiodarone HCl 450 mg/ (Dextrose/Water) 250 mls @ 16.667 mls/hr IV .Q15H [facility]; Protocol Stop: 10/13/20 07:58 Last Admin: 10/12/20 15:41 Dose: 0.5 mg/min, 16.667 mls/hr Documented by: Norepinephrine Bitartrate 4 mg (/ Sodium Chloride) 254 mls @ 23.793 mls/hr IV .[id number] [facility]; Protocol Last Titration: 10/12/20 18:56 Dose: 0.06 mcg/kg/min, 28.552 mls/hr Documented by: Cefepime HCl 2 gm/ Sodium (Chloride) 100 mls @ 25 mls/hr IVPB Q8HR [facility] Last Admin: 10/12/20 17:33 Dose: 25 mls/hr Documented by: Metoprolol Tartrate (Metoprolol Tartrate 50 Mg Tab) 100 mg PO BID [facility] Last Admin: 10/12/20 17:29 Dose: 100 mg Documented by: Morphine Sulfate (Morphine Sulfate 2 Mg/Ml Syringe) 2 mg IVP Q4H PRN PRN Reason: anxiety Last Admin: 10/07/20 22:17 Dose: 2 mg Documented by: Naloxone HCl (Naloxone 0.4 Mg/Ml 1 Ml Vial) 0.2 mg IV Q2M PRN PRN Reason: Opioid Reversal Ondansetron HCl (Ondansetron 4 Mg/2 Ml Vial) 4 mg IVP Q8HR PRN PRN Reason: Nausea And Vomiting Zinc Sulfate (Zinc Sulfate 220 Mg Cap) 220 mg PO DAILY [facility] Last Admin: 10/12/20 07:48 Dose: 220 mg Documented by: On examination: VITAL SIGNS: 101.5, 138, 30, 111/60, 87% on 4040% GENERAL APPEARANCE: Sedated, intubated , RESPIRATORY: Respiratory effort increased. Accessory muscles working Rest of the exam per pulmonary and nursing Investigations: October 12: WBC 23.8 hemoglobin 12.3 d-dimer 8.66 potassium 5.8 creatinine 0.97 CRP 9.4 LDH 10/03/2001 October 11: WBC 20.2 hemoglobin 11.1 d-dimer 6.31 potassium 5 creatinine 0.98 CRP 10.5 October 10: WBC 16.3 hemoglobin 12.6 d-dimer 10.9 potassium 5.2 creatinine 0.95 CRP 11.7 October 09: WBC 12.9 hemoglobin 12.8 platelets 127 d-dimer 23.2 potassium 5.3 creatinine 0.87 CRP 17.6 pro-calcitonin 0.14 October 08: WBC 15.6 hemoglobin 13.8 which is 143. ABG pH 7.25 pCO2 65 pO2 92. Potassium 5.3 creatinine 0.9 to October 07: WBC 13.3 hemoglobin 14 platelets 195 potassium 4.8 creatinine 0.78. ABG: E87.46, pCO2 43, pO2 66 CRP 17.1 October 06: WBC 7.4 hemoglobin 13.2 platelets 238 d-dimer 22.8 potassium 5.3 creatinine 0.8 CRP 25.1 Abdominal ultrasound limited: Very limited exam. Possible gallstones. October 05: WBC 5.3 hemoglobin 12.9 platelets 260 d-dimer 3.65 potassium 4.9 creatinine 0.81 CRP 45.6 Chest x-ray film personally reviewed by me-[October 05]: Bilateral infiltrates more so in the lower zone Lower extremity Doppler ultrasound: Negative for DVT 2-D echocardiogram: Concentric LVH, EF 55-60% Admission labs: D-dimer 1.77 CRP 68.2 Assessment and plan: COVID 19 pneumonia with acute hypoxic respiratory failure,-not improving -Continue with Decadron, Zinc, vitamin C, vitamin D, IV heparin changed to eliquis [ Convolescent Plasma 10/03, Toci X 1 on 10/03 ] Patient now febrile. Septic. Suspect secondary bacterial infection Start cefepime Acute hypoxic respiratory failure secondary to COVID 19 pneumonia,-not improving. Remains on ventilator support Paroxysmal atrial fibrillation, repeated episodes of rapid ventricular rate- currently sinus rhythm. Back into atrial fibrillation-rate uncontrolled -Seen by cardiology. Continue with metoprolol. On IV amiodarone-changed to by mouth. IV heparin-changed to eliquis Transaminitis likely secondary to illness -Follow liver enzymes. ultrasound: Poor quality. -Gallstones, asymptomatic Hyponatremia secondary decreased solute intake in addition to water. -Corrected -Morbid obesity with BMI 41 outpatient weight loss -Hyperkalemia -Legal guardian: Krista patient's sister Prognosis guarded. Remains critically ill.
[2020-10-13] MEDS: CEFEPIME 2 GM in SODIUM CHLORIDE 0.9% 100 ML IVPB SCH ×3 (00:30→20:18)
[2020-10-13] MEDS: NOREPINEPHRINE 4 MG in SODIUM CHLORIDE 0.9% 250 ML IV SCH ×3 (01:21→16:27)
[2020-10-13] MEDS: ALBUTEROL HFA INHALER INHALATION SCH ×6 (04:04→23:57)
[2020-10-13] MEDS: DILTIAZEM 125 MG in SODIUM CHLORIDE 0.9% 100 ML IV SCH ×3 (04:26→16:26)
[2020-10-13] MEDS: ACETAMINOPHEN TAB 325 MG TAB PO PRN ×2 (04:34→14:18)
[2020-10-13] MEDS: ARTIFICIAL TEARS-HYPROMELLOSE DROPS 15 ML BTL BOTH EYES SCH ×6 (05:02→20:18)
[2020-10-13 05:03] LABS: ABG Base Excess 7.2 mmol/L; ABG HCO3 33 mmol/L (21-25); ABG Oxygen Saturation 93.4 % (94-97); ABG PCO2 61 mmHg (35-45); ABG PH 7.34 (7.35-7.45); ABG PO2 71 mmHg (83-108); ABG TCO2 35 mmol/L (19-24)
[2020-10-13 05:27] LABS: C Reactive Protein 9.7 mg/L (<10.0)
--- NOTE | 2020-10-13 06:34 | P.PN ---
Subjective Progress Note Date: 10/13/20 On today's evaluation of 10/12/2020 seeing this patient for a follow-up. Is a 60-year-old male patient with COVID 19 pneumonia. Pneumonia and secondary hypoxic respiratory failure. The patient was intubated and placed on a mechanical ventilator. The patient was admitted to the ICU on 10/03/2020 and the patient was extubated on 10/07/2020. Initially the patient was on high flow oxygen which she failed and subsequently his condition progressed and the patient has to be intubated and placed on a mechanical ventilator. The patient has already received 2 units of convalescent plasma, the patient has received Tocilizumab and the patient is currently on steroids. On today's evaluation, the patient is sedated with propofol at 45 mcg/kg per minute and the patient is calm and comfortable successful mechanical ventilator. Propofol is running at 45 mics respiratory per minute. The patient was paralyzed earlier with Nimbex and this was discontinued and he had to be placed back and the patient is currently back on nimbex 1 mcg/kg per minute.. The patient is also intubated on a mechanical ventilator within assist-control at the rate of 30, FiO2 of 60%, PEEP 16 with a tidal volume of 400. Blood gases were noted. The ABG from this morning showed a pH of 7.32 with a pCO2 of 62 and pO2 of 122. The chest x-ray from today is unchanged and the patient has bilateral pulmonary infiltrates more so on the right lower lobe. ET tube is in a good location. As for the blood work, the patient has a white cell count of 23 with a hemoglobin of 12 and a d- dimer of 8.66, BUN is a 50 with a creatinine of 0.9, LDH level is 4302 and a CRP level is at 9.4. The patient is hemodynamically stable on no pressors. Patient was being performed earlier and currently is in a supine body position. The chest x-ray from today showing diffuse breath and pulmonary infiltrates and ET tube is in a good location. The patient is on a enteral feeding with vital high protein at the rate of 40 mL an hour. The neck fluid balance over the past 24 hours is -226 mL and there are no signs of any significant fluid overload. Producing adequate amount of urine output. The cardiac rhythm is A. fib/flutter and the patient is currently on Eliquis. The peak airway pressure is 34 anesthetic pressures around 33. On 10/12/2020 on seeing the patient for a follow-up. The patient remains in intensive care unit. This is a 60-year-old female patient with Covid interrelated pneumonia with hypoxic respiratory failure. The patient has been on a mechanical ventilator since 10/07/2020. The patient currently is on propofol which is running at 60 mcg/kg per minute and the patient is also on paralytics which is running in the form of Nimbex at 1 mcg/kg per minute. Attempts to wean off the Nimbex failed and the patient had to be paralyzed again. Meanwhile, the patient remains on a mechanical ventilator, assist control rate of 30 with an FiO2 of 40% and a PEEP of 16 and a tidal volume of 400. The blood gases from today shows a pH of 7.33 with a pCO2 of 61 and pO2 of 71. The peak airway pressures are 33 and a plateau airway pressure is 31. The chest x-ray from today show an stable bilateral pulmonary infiltrates, with right midlung and left lower lobe pulmonary infiltration and the chest x-ray findings are essentially stable since yesterday without any significant interval change. Her potassium level was at 5.7 and his morning and based on that the patient was given a dose of Kayexalate 30 Repeat potassium is pending for now. Meanwhile, the patient remains hemodynamically stable. The patient is on levo fed, at 0.06 mcg/kg per minute. This should be gradually weaned off today. The patient is on enteral feeding for nutritional support and the patient is on vital high protein at 40 mL an hour. The patient remains in episodes of atrial fibrillation/flutter and this morning is she is on Cardizem at 10 mg an hour and the patient was loaded again with amiodarone and maintained on a infusion of amiodarone at 0.5 she'll be switched back to oral amiodarone today. She remains on Eliquis 5 mg by mouth twice a day. Empiric antibiotic coverage with IV cefepime. She remains on Decadron 6 mg IV every 24 hours. IV fluids with normal saline at the rate of 25 mL an hour. The fluid balance over the past 24 hours has been -49 mL. Objective - Vital Signs Vital signs: Vital Signs Temp 101.1 F H 04/13/21 04:00 Pulse 131 H 10/13/20 05:00 Resp 30 H 10/13/20 05:00 BP 100/71 10/12/20 18:00 Pulse Ox 92 L 10/13/20 05:00 Intake & Output 10/12/20 10/12/20 10/13/20 06:59 18:59 06:59 Intake Total 614.552 1355.869 832.003 Output Total 486 640 1227 Balance 205.216 722.869 -192.997 Weight 124.9 kg 130 kg Intake: IV 286 288 253 0.9 220 240 220 Pressure Bags 66 48 33 Intake, IV Titration 524.216 499.869 359.003 Amount Cisatracurium 200 mg In 125.792 66.749 Sodium Chloride 0.9% 180 ml @ 2 MCG/KG/MIN 14.916 mls/hr IV .[id number] [facility] Rx #:[id number] Diltiazem 125 mg In 96.75 110.333 125 Sodium Chloride 0.9% 100 ml @ Titrate IV .Q24H [facility] Rx#:[id number] Norepinephrine 4 mg In 119.997 134.003 Sodium Chloride 0.9% 250 ml @ 0.05 MCG/KG/MIN 23. 793 mls/hr IV .[id number] [facility] Rx#:[id number] propofoL 1,000 mg In 301.674 202.79 100 Empty Bag 1 bag @ Titrate IV .Q0M [facility] Rx#: [id number] Tube Feeding 40 640 220 Other 90 Output: Urine 645 795 725 Stool 300 Other: Voiding Method Indwelling Catheter Indwelling Catheter Indwelling Catheter ABP, PAP, CO, CI - Last Documented Arterial Blood Pressure 123/67 - Exam The patient is currently intubated and sedated, mechanically ventilated. Nimbex and propofol are still running for sedation and paralysis HEENT examination is grossly unremarkable. Oral endotracheal tube is noted. Neck supple. Full range of motion. No adenopathy thyromegaly or neck vein distention. A left internal jugular triple-lumen catheter is noted. Cardiovascular examination reveals an irregular rhythm and rate. Irregular S1- S2 and consistent with atrial fibrillation/flutter. No S3 or S4. No discernible murmur noted. Lungs reveal coarse bilateral rhonchi and crackles. Breath sounds equal. No wheezes. Breath sounds are bit worse today. Exam is essentially unchanged. Abdomen soft bowel sounds are heard. No masses or tenderness. Extremities are intact. No cyanosis clubbing or edema. Skin is without rash or lesion. Neurologic examination could not be adequately assessed as the patient's currently sedated. - Labs CBC & Chem 7: 10/12/20 04:40 10/12/20 15:24 Labs: Abnormal Lab Results - Last 24 Hours (Table) 10/12/20 10/12/20 10/12/20 Range/Units 04:40 06:20 15:24 D-Dimer (<0.60) mg/L FEU ABG pH 7.33 L (7.35-7.45) ABG pCO2 63 H (35-45) mmHg ABG pO2 122 H (83-108) mmHg ABG HCO3 33 H (21-25) mmol/L ABG Total CO2 35 H (19-24) mmol/L ABG O2 Saturation 98.4 H (94-97) % Potassium 5.7 H (3.5-5.1) mmol/L Ferritin 1237.9 H (10.0-291.0) ng/mL Lactate Dehydrogenase 4302 H (313-618) U/L 10/13/20 10/13/20 Range/Units 04:00 04:55 D-Dimer 9.81 H (<0.60) mg/L FEU ABG pH 7.34 L (7.35-7.45) ABG pCO2 61 H (35-45) mmHg ABG pO2 71 L (83-108) mmHg ABG HCO3 33 H (21-25) mmol/L ABG Total CO2 35 H (19-24) mmol/L ABG O2 Saturation 93.4 L (94-97) % Potassium (3.5-5.1) mmol/L Ferritin (10.0-291.0) ng/mL Lactate Dehydrogenase (313-618) U/L Microbiology - Last 24 Hours (Table) 10/12/20 15:24 Urine Culture - Preliminary Urine,Catheterized Assessment and Plan Plan: #1. Acute hypoxic respiratory failure secondary to acute COVID 19 related pneumonitis, status post Tocilizumab and 1 unit of convalescent plasma on 0 10/03/2020, admitted to the ICU on 10/03/2020, intubated for worsening respiratory failure on 10/07/2020. The patient remains on Decadron 6 mg IV every 24 hours. The patient is sedated and currently she is on paralytics and the patient's inflammatory markers are quite elevated. The patient is on E liquis for anticoagulation especially with her underlying atrial fibrillation/flutter. I do not see any major change in her chest x-ray findings today. The patient remains on a mechanical ventilator. She is on a PEEP of 16 with an FiO2 of 40% and blood gases is showing some marginal oxygenation. #2 History of paroxysmal atrial fibrillation, currently in sinus rhythm , currently on oral amiodarone and metoprolol. The patient is having runs of A. fib flutter intermittently during the day and this morning she is in A. fib flutter. The patient is currently on a Cardizem drip at 10 mg an hour and amiodarone drip at 0.5 mg per minute. The patient is also on Eliquis for anticoagulation. The patient is also on metoprolol at a dose of 100 mg by mouth twice a day. #3. Hypotension, requiring a low-dose norepinephrine infusion for blood pressure control currently running at 0.05 Law respiratory events. The patient has a normal ejection fraction of 55-60%. #4. Increased d-dimer, related to acute COVID 19, d-dimer from today's at 9.8 #5. Increased transaminases related to acute viral pneumonia. Ultrasound abdomen was completed showing multiple gallbladder stones, however total bilirubin level is normal at 0.5 #6 mild leukocytosis, and the patient remains on IV cefepime for broad-spectrum antibiotic coverage. #7 enteral feeding for nutritional support Plan: Continue ventilator support Wean down the PEEP down to 14 Keep sedation with propofol Give the patient another paralytic holiday today e Continue Decadron 6 mg IV every 24 hours Continue Eliquis for anticoagulation Continue enteral feeding for nutritional support Monitor inflammatory markers, d-dimer was elevated LDH is also elevated Cardiac rhythm is currently A. fib/flutter and the patient is on amiodarone and metoprolol combination, and the patient is on a Cardizem drip at 10 mg an hour and amiodarone at 0.5 mg per minute. The patient can be switched back to oral amiodarone. The patient is still on metoprolol 100 mg by mouth twice a day. Heart rate is still poorly controlled for now and rn wound care on the case in this regard. The patient is on anticoagulation with Eliquis. Continue enteral feeding for nutritional support We'll give the patient dose of Lasix 40 mg IV push Wean off norepinephrine infusion and discontinue as the patient is maintaining adequate blood pressure We'll continue to follow. Condition is critical Physical care evaluation that was on a more than 30 minutes Time with Patient: Greater than 30
[2020-10-13 06:50] LABS: Calcium 7.5 mg/dL (8.4-10.2); Potassium 5.2 mmol/L (3.5-5.1)
[2020-10-13] MEDS: AMIODARONE 450 MG in DEXTROSE 5% IN WATER 250 ML IV SCH ×8 (07:09→20:17)
[2020-10-13] MEDS: CISATRACURIUM 200 MG in SODIUM CHLORIDE 0.9% 180 ML IV SCH ×2 (07:12→15:16)
[2020-10-13 07:22] LABS: HCT 38.1 % (34.0-46.0); HGB 11.8 gm/dL (11.4-16.0); Hypochromasia Slight; MCV 90.4 fL (80.0-100.0); Mean Platelet Volume 9.1; Platelet Count 215 k/uL (150-450); RBC 4.22 m/uL (3.80-5.40); RDW 15.2 % (11.5-15.5); WBC 31.1 k/uL (3.8-10.6)
[2020-10-13] MEDS: CHLORHEXIDINE GLUCONATE 15 ML CUP MUCOUS MEM SCH ×2 (08:11→20:18)
[2020-10-13] MEDS: APIXABAN 5 MG TAB PO SCH ×2 (08:11→20:18)
[2020-10-13] MEDS: CHOLECALCIFEROL 25 MCG (1000 IU) TABLET PO SCH (08:11)
[2020-10-13] MEDS: DEXAMETHASONE SOD PHOSPHATE 10 MG/ML 1 ML VIAL IV SCH (08:11)
[2020-10-13] MEDS: ASCORBIC ACID 500 MG TAB PO SCH (08:11)
[2020-10-13] MEDS: FAMOTIDINE 20 MG/2 ML VIAL IV SCH ×2 (08:11→20:18)
[2020-10-13] MEDS: METOPROLOL TARTRATE 50 MG TAB PO SCH ×3 (08:12→21:49)
[2020-10-13] MEDS: ZINC SULFATE 220 MG CAP PO SCH (08:12)
--- NOTE | 2020-10-13 08:43 | PN ---
PROGRESS NOTE Mrs. Olmedo is a 60-year-old female who presented with respiratory failure related to COVID-19 infection requiring mechanical ventilation. She had episode of atrial fibrillation and continued to have rapid ventricular response. She continued to be on the IV Cardizem and IV amiodarone. She continues to have episodes of fever. Her left ventricular systolic function was normal by echocardiography. Her urine output is stable. She has no prior documented history of malignant arrhythmia. She has been anticoagulated. She has no ventricular ectopic activity. She continued to be on the IV amiodarone, Eliquis 5 mg twice a day, IV Cardizem 10 mg an hour in addition to metoprolol tartrate 100 mg twice a day. PHYSICAL EXAMINATION: Temperature 101.1. Heart rate still in the 120s to 130s. Blood pressure 123/60. No physical examination was done because of the infection. LAB DATA: Lab data revealed BUN and creatinine 62 and 1.17. Her LDH is 4023. Her C-reactive protein is 9.7. A pH 7.34, pCO2 of 61, pO2 of 71 on FiO2 of 40%. IMPRESSION: 1. Respiratory failure with COVID-19 pneumonia requiring mechanical ventilation. 2. Paroxysmal fibrillation with persistent episode of atrial fibrillation. 3. Worsening renal function. 4. Febrile episode related to infection. RECOMMENDATION: I will continue on the IV amiodarone as well as the IV Cardizem. I will increase the dose of beta peterson. Continue to monitor her ventricular response and depending on her progress, further recommendation will be made. MMODL / IJN: [id number] /
--- NOTE | 2020-10-13 08:53 | XR ---
EXAMINATION TYPE: XR chest 1V portable DATE OF EXAM: 10/13/2020 COMPARISON: 10/12/2020 HISTORY: Shortness of breath TECHNIQUE: Single frontal view of the chest is obtained. FINDINGS: ET tube, NG tube, central line stable. Diffuse bilateral infiltrates predominantly interst itial stable. No sizable pleural effusion. Heart size normal. Biapical pleural thickening. No pneumot horax. Apical pleural thickening and atherosclerotic change aorta. IMPRESSION: Stable predominantly interstitial diffuse infiltrates correlate for interstitial pneumon ia.
[2020-10-13 11:31] LABS: Band Neutrophils % 3 %; Lymphocytes # (M) 1.56 k/uL (1.0-4.8); Metamyelocytes # (M) 0.62 k/uL (0); Metamyelocytes % 2 %; Monocytes # (M) 0.93 k/uL (0-1.0); Myelocytes # (M) 0.62 k/uL (0); Myelocytes % 2 %; Neutrophils % (M) 87 %; Nucleated Red Blood Cells 0 /100 WBC (0-0); Total Cells Counted 200
[2020-10-13 11:34] LABS: Polychromasia Present; Toxic Granulation Present
[2020-10-13 11:36] LABS: Anisocytosis (M) Present; Poikilocytosis (M) Present
[2020-10-13] MEDS: MORPHINE SULFATE 2 MG/ML SYRINGE IVP PRN (11:38)
[2020-10-13] MEDS: SODIUM CHLORIDE 0.9% 1,000 ML IV SCH (13:16)
[2020-10-13] MEDS ORDERED: DILTIAZEM DRIP BOLUS FROM BAG 1 MG SOLN IV ONE (15:45)
[2020-10-13] MEDS: SODIUM CHLORIDE 0.9% 500 ML 500 ML IV SCH (17:34)
--- NOTE | 2020-10-13 20:19 | P.PN ---
Progress Note - Text Progress Note Date: 10/13/20 Presenting complaint Shortness of breath History of presenting complaint Patient is a 60-year-old female, follows with Dr. Herberth Hurd, with no known past medical history who presented to the ER secondary to shortness of breath and cough. She was diagnosed with COVID 19 on 09/23/20. In the ER she was saturating 85% on room air and was found to be in A. fib with RVR and heart rates 120 to 130. Initial labs showed d-dimer of 1.77, lymphocytes 0.5, sodium 132, carbon dioxide 19, BUN 25, AST 122, ALT 47, LDH 2894, and CRP to exceed 8.2. She was admitted and was started on Decadron. She was outside of the window for Remdesivir. She was started on a Cardizem drip as well as metoprolol orally for her A. fib. She was also started on a heparin drip. She's given fluids for her hyponatremia. Pulmonary was consulted. She was requiring a nonrebreather on admission and overnight on 10/03 she was requiring maximal therapy through an air follow along with her nonrebreather to maintain low normal O2 sats. She converted to normal sinus rhythm and her Cardizem drip was stopped. Cardiology was consulted for her A. fib. She was subsequently transferred to the ICU. She had reported some leg pain and venous Dopplers were negative in bilateral lower extremities heparin drip was stopped and she had converted to normal sinus mechanism and she was subsequently started on prophylactic Lovenox. Echocardiogram showed ejection fraction 55-60% with moderate LVH. She was unable to tolerated AIRVO and was started on BiPap. Patient opted to change her CODE STATUS to DO NOT INTUBATE (October 08 patient respiratory status declined. Patient's sister obtained an emergency guardianship through the court and after she discussed with Dr. Park he decided to intubate the patient. This morning patient is on propofol and Nimbex. But the FiO2 60 the PEEP 16. I did get a call from the nurse and also from the social sciences research scientist for request for transfer to it was to [place] per sister and interchange agent Dr. Park for ECMO. I did speak to the admitting office of the day interchange agent , home with home I discussed the case at length. He said that the patient was not a candidate for transfer and can be managed here. I did give him Dr. Park's cell number for further conversation regarding his advice for management here.) Patient's again had an episode of paroxysmal atrial fibrillation Today ICU: Remains in atrial flutter with a rate around 140s. Ventilator FiO2 40 and a PEEP of 14. Lives include IV amiodarone at 0.5, Cardizem and 10 mg, IV propofol, Nimbex. 2 feeding at 40 mL an hour. Review of systems: Patient intubated Active Medications Acetaminophen (Acetaminophen Tab 325 Mg Tab) 650 mg PO Q6HR PRN PRN Reason: Mild Pain or Fever > 100.5 Last Admin: 10/13/20 14:18 Dose: 650 mg Documented by: Albuterol Sulfate (Albuterol Hfa Inhaler) 2 puff INHALATION RT-Q4H [facility] Last Admin: 10/13/20 16:57 Dose: 2 puff Documented by: Albuterol Sulfate (Albuterol Hfa Inhaler) 2 puff INHALATION RT-QID PRN PRN Reason: Shortness Of Breath Or Wheezing Apixaban (Apixaban 5 Mg Tab) 5 mg PO BID [facility] Last Admin: 10/13/20 08:11 Dose: 5 mg Documented by: Artificial Tears (Artificial Tears-Hypromellose Drops 15 Ml Btl) 2 drops BOTH EYES Q4H [facility] Last Admin: 10/13/20 16:26 Dose: 2 drops Documented by: Ascorbic Acid (Ascorbic Acid 500 Mg Tab) 1,000 mg PO DAILY [facility] Last Admin: 10/13/20 08:11 Dose: 1,000 mg Documented by: Chlorhexidine Gluconate (Chlorhexidine Gluconate 15 Ml Cup) 15 ml MUCOUS MEM BID [facility] Last Admin: 10/13/20 08:11 Dose: 15 ml Documented by: Cholecalciferol (Cholecalciferol 25 Mcg (1000 Iu) Tablet) 100 mcg PO DAILY [facility] Last Admin: 10/13/20 08:11 Dose: 100 mcg Documented by: Dexamethasone Sodium Phosphate (Dexamethasone Sod Phosphate 10 Mg/Ml 1 Ml Vial) 6 mg IV DAILY [facility] Last Admin: 10/13/20 08:11 Dose: 6 mg Documented by: Famotidine (Famotidine 20 Mg/2 Ml Vial) 20 mg IV BID [facility] Last Admin: 10/13/20 08:11 Dose: 20 mg Documented by: Propofol 1,000 mg/ IV Solution 100 mls @ 0 mls/hr IV .Q0M [facility]; Protocol Last Admin: 10/13/20 16:25 Dose: 50 mcg/kg/min, 39 mls/hr Documented by: Cisatracurium Besylate 200 mg/ (Sodium Chloride) 200 mls @ 14.916 mls/hr IV .[id number] [facility]; Protocol Last Admin: 10/13/20 15:16 Dose: Not Given Documented by: Norepinephrine Bitartrate 4 mg (/ Sodium Chloride) 254 mls @ 23.793 mls/hr IV .[id number] [facility]; Protocol Last Admin: 10/13/20 16:27 Dose: Not Given Documented by: Amiodarone HCl 450 mg/ (Dextrose/Water) 250 mls @ 16.667 mls/hr IV .Q15H [facility]; Protocol Last Admin: 10/13/20 11:36 Dose: Not Given Documented by: Cefepime HCl 2 gm/ Sodium (Chloride) 100 mls @ 25 mls/hr IVPB Q12HR [facility] Diltiazem HCl 125 mg/ Sodium (Chloride) 125 mls @ 15 mls/hr IV .[id number] [facility] Last Admin: 10/13/20 16:26 Dose: 15 mg/hr, 15 mls/hr Documented by: Sodium Chloride (Saline 0.9%) 500 mls @ 20 mls/hr IV .Q24H [facility] Last Admin: 10/13/20 17:34 Dose: Not Given Documented by: Metoprolol Tartrate (Metoprolol Tartrate 50 Mg Tab) 100 mg PO TID [facility] Last Admin: 10/13/20 10:54 Dose: 100 mg Documented by: Morphine Sulfate (Morphine Sulfate 2 Mg/Ml Syringe) 2 mg IVP Q4H PRN PRN Reason: anxiety Last Admin: 10/13/20 11:38 Dose: 2 mg Documented by: Naloxone HCl (Naloxone 0.4 Mg/Ml 1 Ml Vial) 0.2 mg IV Q2M PRN PRN Reason: Opioid Reversal Ondansetron HCl (Ondansetron 4 Mg/2 Ml Vial) 4 mg IVP Q8HR PRN PRN Reason: Nausea And Vomiting Zinc Sulfate (Zinc Sulfate 220 Mg Cap) 220 mg PO DAILY [facility] Last Admin: 10/13/20 08:12 Dose: 220 mg Documented by: On examination: VITAL SIGNS: 100.7, 141, 30, 130/64, 90% GENERAL APPEARANCE: Sedated, intubated , RESPIRATORY: Respiratory effort increased. Accessory muscles working Rest of the exam per pulmonary and nursing Investigations: October 13: WBC 31.1 hemoglobin 11.8 platelets 215 potassium 5.2 creatinine 1.17 LDH 4023 d-dimer 9.81 CRP 9.7 October 12: WBC 23.8 hemoglobin 12.3 d-dimer 8.66 potassium 5.8 creatinine 0.97 CRP 9.4 LDH 10/03/2001 October 11: WBC 20.2 hemoglobin 11.1 d-dimer 6.31 potassium 5 creatinine 0.98 CRP 10.5 October 10: WBC 16.3 hemoglobin 12.6 d-dimer 10.9 potassium 5.2 creatinine 0.95 CRP 11.7 October 09: WBC 12.9 hemoglobin 12.8 platelets 127 d-dimer 23.2 potassium 5.3 creatinine 0.87 CRP 17.6 pro-calcitonin 0.14 October 08: WBC 15.6 hemoglobin 13.8 which is 143. ABG pH 7.25 pCO2 65 pO2 92. Potassium 5.3 creatinine 0.9 to October 07: WBC 13.3 hemoglobin 14 platelets 195 potassium 4.8 creatinine 0.78. ABG: E87.46, pCO2 43, pO2 66 CRP 17.1 October 06: WBC 7.4 hemoglobin 13.2 platelets 238 d-dimer 22.8 potassium 5.3 creatinine 0.8 CRP 25.1 Abdominal ultrasound limited: Very limited exam. Possible gallstones. October 05: WBC 5.3 hemoglobin 12.9 platelets 260 d-dimer 3.65 potassium 4.9 creatinine 0.81 CRP 45.6 Chest x-ray film personally reviewed by me-[October 05]: Bilateral infiltrates more so in the lower zone Lower extremity Doppler ultrasound: Negative for DVT 2-D echocardiogram: Concentric LVH, EF 55-60% Admission labs: D-dimer 1.77 CRP 68.2 Assessment and plan: COVID 19 pneumonia with acute hypoxic respiratory failure,-not improving -Continue with Decadron, Zinc, vitamin C, vitamin D, IV heparin changed to eliquis [ Convolescent Plasma 10/03, Toci X 1 on 10/03 ] febrile. Septic. Suspect secondary bacterial infection-slow to respond IV cefepime Acute hypoxic respiratory failure secondary to COVID 19 pneumonia,-not improving. Remains on ventilator support Paroxysmal atrial fibrillation, repeated episodes of rapid ventricular rate- currently sinus rhythm. Back into atrial fibrillation-rate uncontrolled eliquis. Currently IV Cardizem and IV amiodarone Transaminitis likely secondary to illness -Follow liver enzymes. ultrasound: Poor quality. -Gallstones, asymptomatic Hyponatremia secondary decreased solute intake in addition to water. -Corrected -Morbid obesity with BMI 41 outpatient weight loss -Hyperkalemia -Legal guardian: Krista patient's sister Remains on multiple drips. As above. Prognosis remains guarded. Critical
[2020-10-14] MEDS: DILTIAZEM 125 MG in SODIUM CHLORIDE 0.9% 100 ML IV SCH ×4 (00:48→23:58)
[2020-10-14] MEDS: NOREPINEPHRINE 4 MG in SODIUM CHLORIDE 0.9% 250 ML IV SCH ×2 (03:54→12:15)
[2020-10-14] MEDS: ARTIFICIAL TEARS-HYPROMELLOSE DROPS 15 ML BTL BOTH EYES SCH ×6 (03:54→20:03)
[2020-10-14 04:26] LABS: Basophils # (A) 0.1 k/uL (0-0.2); Basophils % (A) 0 %; Eosinophils % (A) 0 %; HCT 33.9 % (34.0-46.0); HGB 10.6 gm/dL (11.4-16.0); Lymphocytes # (A) 1.4 k/uL (1.0-4.8); Lymphocytes % (A) 5 %; MCH 27.9 pg (25.0-35.0); MCHC 31.2 g/dL (31.0-37.0); MCV 89.3 fL (80.0-100.0); Mean Platelet Volume 8.6; Monocytes # (A) 0.7 k/uL (0-1.0); Monocytes % (A) 3 %; Neutrophils # (A) 24.1 k/uL (1.3-7.7); Neutrophils % (A) 91 %; Platelet Count 178 k/uL (150-450); RDW 15.7 % (11.5-15.5); WBC 26.5 k/uL (3.8-10.6)
[2020-10-14] MEDS: CISATRACURIUM 200 MG in SODIUM CHLORIDE 0.9% 180 ML IV SCH ×2 (04:32→16:50)
[2020-10-14] MEDS: ALBUTEROL HFA INHALER INHALATION SCH ×6 (04:42→23:19)
[2020-10-14 04:45] LABS: Albumin 2.9 g/dL (3.5-5.0); C Reactive Protein 7.7 mg/L (<10.0); Calcium 7.5 mg/dL (8.4-10.2); Potassium 4.5 mmol/L (3.5-5.1); Total Bilirubin 0.5 mg/dL (0.2-1.3); Total Protein 5.3 g/dL (6.3-8.2)
[2020-10-14 04:59] LABS: ABG Base Excess 8.2 mmol/L; ABG HCO3 33 mmol/L (21-25); ABG Oxygen Saturation 89.2 % (94-97); ABG PCO2 57 mmHg (35-45); ABG PH 7.38 (7.35-7.45); ABG TCO2 35 mmol/L (19-24); Allen Test Performed? Yes
[2020-10-14 05:05] LABS: ABG PO2 57 mmHg (83-108)
[2020-10-14] MEDS: METOPROLOL TARTRATE 50 MG TAB PO SCH ×3 (07:52→20:02)
[2020-10-14] MEDS: APIXABAN 5 MG TAB PO SCH ×2 (07:53→20:03)
[2020-10-14] MEDS: CHOLECALCIFEROL 25 MCG (1000 IU) TABLET PO SCH (07:53)
[2020-10-14] MEDS: ASCORBIC ACID 500 MG TAB PO SCH (07:53)
[2020-10-14] MEDS: ZINC SULFATE 220 MG CAP PO SCH (07:53)
[2020-10-14] MEDS: FAMOTIDINE 20 MG/2 ML VIAL IV SCH ×2 (07:54→20:02)
[2020-10-14] MEDS: DEXAMETHASONE SOD PHOSPHATE 10 MG/ML 1 ML VIAL IV SCH (07:54)
[2020-10-14] MEDS: CHLORHEXIDINE GLUCONATE 15 ML CUP MUCOUS MEM SCH ×2 (07:54→20:02)
[2020-10-14] MEDS: CEFEPIME 2 GM in SODIUM CHLORIDE 0.9% 100 ML IVPB SCH ×2 (07:54→20:03)
--- NOTE | 2020-10-14 08:58 | PN ---
PROGRESS NOTE Mrs. Olmedo is a 60-year-old female who presented with respiratory failure, who had evidence of COVID-19 pneumonia, remains intubated and sedated. She had atrial fibrillation with rapid ventricular response. The left ventricular systolic function is normal. She continues to have episodes of rapid ventricular response, although better than yesterday. She continues to be febrile. There is no evidence of ventricular ectopic activity. She continues to be on IV amiodarone, IV Cardizem at 15 mg an hour in addition to metoprolol tartrate 100 mg 3 times a day. There is no evidence of ventricular tachycardia. Her rate earlier according to the nursing staff was down in the 90s. She is continued on Eliquis 5 mg twice a day in addition to the Cardizem, amiodarone and the beta peterson. PHYSICAL EXAMINATION: Blood pressure running in the 100s. Temperature of a 100. Her heart rate was in the 90s earlier. No physical examination was done. IMPRESSION: 1. Respiratory failure with COVID-19 pneumonia. 2. Atrial fibrillation with persistent episode of rapid ventricular response. 3. Persistent fever related to the infectious process recommendation. LAB DATA: Her lab data today shows white blood cell of 26.5. Her pH 7.38, pCO2 of 57 and pO2 of 57. I discussed her case with Dr. Shields. The likelihood of having successful spiritism of sinus mechanism BRISSA guided cardioversion is low in view of her overall status, especially with her infectious process and her respiratory status. Since her rate was under better control earlier, we will continue present therapy and follow her symptoms and depending on that, further recommendation will be made. The plan was discussed with Dr. Shields .The prognosis remains quite poor. MMODL / IJN: [id number] [facility]
[2020-10-14] MEDS ORDERED: FUROSEMIDE 10 MG/ML 4 ML VIAL IV STA (09:12)
--- NOTE | 2020-10-14 09:12 | P.PN ---
Subjective Progress Note Date: 10/14/20 On today's evaluation of 10/12/2020 seeing this patient for a follow-up. Is a 60-year-old male patient with COVID 19 pneumonia. Pneumonia and secondary hypoxic respiratory failure. The patient was intubated and placed on a mechanical ventilator. The patient was admitted to the ICU on 10/03/2020 and the patient was extubated on 10/07/2020. Initially the patient was on high flow oxygen which she failed and subsequently his condition progressed and the patient has to be intubated and placed on a mechanical ventilator. The patient has already received 2 units of convalescent plasma, the patient has received Tocilizumab and the patient is currently on steroids. On today's evaluation, the patient is sedated with propofol at 45 mcg/kg per minute and the patient is calm and comfortable successful mechanical ventilator. Propofol is running at 45 mics respiratory per minute. The patient was paralyzed earlier with Nimbex and this was discontinued and he had to be placed back and the patient is currently back on nimbex 1 mcg/kg per minute.. The patient is also intubated on a mechanical ventilator within assist-control at the rate of 30, FiO2 of 60%, PEEP 16 with a tidal volume of 400. Blood gases were noted. The ABG from this morning showed a pH of 7.32 with a pCO2 of 62 and pO2 of 122. The chest x-ray from today is unchanged and the patient has bilateral pulmonary infiltrates more so on the right lower lobe. ET tube is in a good location. As for the blood work, the patient has a white cell count of 23 with a hemoglobin of 12 and a d- dimer of 8.66, BUN is a 50 with a creatinine of 0.9, LDH level is 4302 and a CRP level is at 9.4. The patient is hemodynamically stable on no pressors. Patient was being performed earlier and currently is in a supine body position. The chest x-ray from today showing diffuse breath and pulmonary infiltrates and ET tube is in a good location. The patient is on a enteral feeding with vital high protein at the rate of 40 mL an hour. The neck fluid balance over the past 24 hours is -226 mL and there are no signs of any significant fluid overload. Producing adequate amount of urine output. The cardiac rhythm is A. fib/flutter and the patient is currently on Eliquis. The peak airway pressure is 34 anesthetic pressures around 33. On 10/13/2020 on seeing the patient for a follow-up. The patient remains in intensive care unit. This is a 60-year-old female patient with Covid interrelated pneumonia with hypoxic respiratory failure. The patient has been on a mechanical ventilator since 10/07/2020. The patient currently is on propofol which is running at 60 mcg/kg per minute and the patient is also on paralytics which is running in the form of Nimbex at 1 mcg/kg per minute. Attempts to wean off the Nimbex failed and the patient had to be paralyzed again. Meanwhile, the patient remains on a mechanical ventilator, assist control rate of 30 with an FiO2 of 40% and a PEEP of 16 and a tidal volume of 400. The blood gases from today shows a pH of 7.33 with a pCO2 of 61 and pO2 of 71. The peak airway pressures are 33 and a plateau airway pressure is 31. The chest x-ray from today show an stable bilateral pulmonary infiltrates, with right midlung and left lower lobe pulmonary infiltration and the chest x-ray findings are essentially stable since yesterday without any significant interval change. Her potassium level was at 5.7 and his morning and based on that the patient was given a dose of Kayexalate 30 Repeat potassium is pending for now. Meanwhile, the patient remains hemodynamically stable. The patient is on levo fed, at 0.06 mcg/kg per minute. This should be gradually weaned off today. The patient is on enteral feeding for nutritional support and the patient is on vital high protein at 40 mL an hour. The patient remains in episodes of atrial fibrillation/flutter and this morning is she is on Cardizem at 10 mg an hour and the patient was loaded again with amiodarone and maintained on a infusion of amiodarone at 0.5 she'll be switched back to oral amiodarone today. She remains on Eliquis 5 mg by mouth twice a day. Empiric antibiotic coverage with IV cefepime. She remains on Decadron 6 mg IV every 24 hours. IV fluids with normal saline at the rate of 25 mL an hour. The fluid balance over the past 24 hours has been -49 mL. 10/14/2020, I'm seeing the patient for a follow-up. The patient was intubated and she has been on a mechanical ventilator since 10/07/2020. I'm seeing her today in follow-up. She remains on propofol at 45 mcg/kg per minute and the patient is currently on Nimbex at 1 mcg/kg per minute. She is well sedated and paralyzed. Paralytic Cardizem being given to her daily basis. She failed yesterday and the same of discharge today. She had a mechanical ventilator assist control mode at the rate of 30 with an FiO2 of 40% and a PEEP of 12 with tidal volume of 400. Blood gases from today shows a pH of 7.3388 with a pCO2 of 57 and pO2 of 57. As for the chest x-ray, I do not see any interval change in the patient has diffuse bilateral pulmonary infiltrates. Peak airway pressure is 31 with a static pressure of 26. IV fluids with normal saline at the rate of 25 mL an hour. She is still having issues with atrial fibrillation. She is currently on a combination of Cardizem drip at the rate of 15 mg an hour and amiodarone at 0.5 mg per minute and metoprolol at a dose of 100 mg by mouth 3 times a day. Earlier this morning, the patient was still tachycardic and the patient was being considered for digoxin. Nevertheless, her heart rate currentl y is down at 9365 per minute. Earlier this morning it was in the 130s up to 160 range. Otherwise, the patient is on no pressors since yesterday, the patient's electrolytes today show improvement in her potassium down to 4.7 being given Kayexalate. BUN 65 with a creatinine of 1.1. The LDH level is 3378 which is still elevated although lower compared to yesterday and his CRP level is at 7.7. Serum bicarb is 34.. Calcitonin levels of 0.17 and the patient is currently on empiric antibiotic coverage with cefepime. Urine culture was showing gram- negative bacillus and the final culture are still pending for now. We will cefepime gram-negative bacilli fluid: Balance balance is positive of 1 L over the past 24 hours. Objective - Vital Signs Vital signs: Vital Signs Temp 98.9 F 10/14/20 08:00 Pulse 111 H 10/14/20 08:00 Resp 30 H 10/14/20 08:00 BP 108/56 10/13/20 21:00 Pulse Ox 87 L 10/14/20 08:00 Intake & Output 10/13/20 10/14/20 10/14/20 18:59 06:59 18:59 Intake Total 5303.669 0678.754 298.75 Output Total 1125 690 50 Balance 518.143 523.754 248.75 Weight 129 kg Intake: IV 276 299 23 0.9 240 260 20 Pressure Bags 36 39 3 Intake, IV Titration 837.143 384.754 205.75 Amount Amiodarone 450 mg In 73.335 Dextrose 5% in Water 250 ml @ 0.5 MG/MIN 16.667 mls/hr IV .Q15H [facility] Rx#: [id number] Cefepime 2 gm In Sodium 100 Chloride 0.9% 100 ml @ 25 mls/hr IVPB Q8HR [facility] Rx# :[id number] Cisatracurium 200 mg In 115.599 159.104 Sodium Chloride 0.9% 180 ml @ 2 MCG/KG/MIN 14.916 mls/hr IV .[id number] [facility] Rx #:[id number] Diltiazem 125 mg In 125 105.75 Sodium Chloride 0.9% 100 ml @ 15 MG/HR 15 mls/hr IV .Q8H20M [facility] Rx#: [id number] Diltiazem 125 mg In 111.500 Sodium Chloride 0.9% 100 ml @ Titrate IV .Q24H [facility] Rx#:[id number] Norepinephrine 4 mg In 189.871 Sodium Chloride 0.9% 250 ml @ 0.05 MCG/KG/MIN 23. 793 mls/hr IV .[id number] [facility] Rx#:[id number] propofoL 1,000 mg In 346.838 100.65 Empty Bag 1 bag @ Titrate IV .Q0M [facility] Rx#: [id number] Tube Feeding 440 440 40 Other 90 90 30 Output: Urine 1125 690 50 Other: Voiding Method Indwelling Catheter Indwelling Catheter ABP, PAP, CO, CI - Last Documented Arterial Blood Pressure 115/54 - Exam The patient is currently intubated and sedated, mechanically ventilated. Nimbex and propofol are still running for sedation and paralysis HEENT examination is grossly unremarkable. Oral endotracheal tube is noted. Neck supple. Full range of motion. No adenopathy thyromegaly or neck vein distention. A left internal jugular triple-lumen catheter is noted. Cardiovascular examination reveals an irregular rhythm and rate. Irregular S1- S2 and consistent with atrial fibrillation/flutter. No S3 or S4. No discernible murmur noted. The rate is under better control with atrial fibrillation for now. Lungs reveal coarse bilateral rhonchi and crackles. Breath sounds equal. No wheezes. Breath sounds are bit worse today. Exam is essentially unchanged. Abdomen soft bowel sounds are heard. No masses or tenderness. Extremities are intact. No cyanosis clubbing or edema. Skin is without rash or lesion. Neurologic examination could not be adequately assessed as the patient's currently sedated. - Labs CBC & Chem 7: 10/14/20 03:40 10/14/20 03:40 Labs: Abnormal Lab Results - Last 24 Hours (Table) 10/13/20 10/13/20 10/13/20 Range/Units 04:00 04:00 06:00 WBC (3.8-10.6) k/uL Hgb (11.4-16.0) gm/dL Hct (34.0-46.0) % RDW (11.5-15.5) % Neutrophils # (1.3-7.7) k/uL Neutrophils # (Manual) 27.90 H (1.3-7.7) k/uL Metamyelocytes # (Man) 0.62 H (0) k/uL Myelocytes # (Manual) 0.62 H (0) k/uL D-Dimer (<0.60) mg/L FEU ABG pCO2 (35-45) mmHg ABG pO2 (83-108) mmHg ABG HCO3 (21-25) mmol/L ABG Total CO2 (19-24) mmol/L ABG O2 Saturation (94-97) % Carbon Dioxide (22-30) mmol/L BUN (7-17) mg/dL Creatinine (0.52-1.04) mg/dL Glucose (74-99) mg/dL Calcium (8.4-10.2) mg/dL Ferritin 956.0 H (10.0-291.0) ng/mL AST (14-36) U/L ALT (4-34) U/L Lactate Dehydrogenase (313-618) U/L Total Protein (6.3-8.2) g/dL Albumin (3.5-5.0) g/dL Procalcitonin 0.17 H (0.02-0.09) ng/mL 10/14/20 10/14/20 10/14/20 Range/Units 03:40 03:40 03:40 WBC 26.5 H (3.8-10.6) k/uL Hgb 10.6 L (11.4-16.0) gm/dL Hct 33.9 L (34.0-46.0) % RDW 15.7 H (11.5-15.5) % Neutrophils # 24.1 H (1.3-7.7) k/uL Neutrophils # (Manual) (1.3-7.7) k/uL Metamyelocytes # (Man) (0) k/uL Myelocytes # (Manual) (0) k/uL D-Dimer 9.63 H (<0.60) mg/L FEU ABG pCO2 (35-45) mmHg ABG pO2 (83-108) mmHg ABG HCO3 (21-25) mmol/L ABG Total CO2 (19-24) mmol/L ABG O2 Saturation (94-97) % Carbon Dioxide 34 H (22-30) mmol/L BUN 65 H (7-17) mg/dL Creatinine 1.12 H (0.52-1.04) mg/dL Glucose 138 H (74-99) mg/dL Calcium 7.5 L (8.4-10.2) mg/dL Ferritin (10.0-291.0) ng/mL AST 51 H (14-36) U/L ALT 167 H (4-34) U/L Lactate Dehydrogenase 3378 H (313-618) U/L Total Protein 5.3 L (6.3-8.2) g/dL Albumin 2.9 L (3.5-5.0) g/dL Procalcitonin (0.02-0.09) ng/mL 10/14/20 Range/Units 04:55 WBC (3.8-10.6) k/uL Hgb (11.4-16.0) gm/dL Hct (34.0-46.0) % RDW (11.5-15.5) % Neutrophils # (1.3-7.7) k/uL Neutrophils # (Manual) (1.3-7.7) k/uL Metamyelocytes # (Man) (0) k/uL Myelocytes # (Manual) (0) k/uL D-Dimer (<0.60) mg/L FEU ABG pCO2 57 H (35-45) mmHg ABG pO2 57 L* (83-108) mmHg ABG HCO3 33 H (21-25) mmol/L ABG Total CO2 35 H (19-24) mmol/L ABG O2 Saturation 89.2 L (94-97) % Carbon Dioxide (22-30) mmol/L BUN (7-17) mg/dL Creatinine (0.52-1.04) mg/dL Glucose (74-99) mg/dL Calcium (8.4-10.2) mg/dL Ferritin (10.0-291.0) ng/mL AST (14-36) U/L ALT (4-34) U/L Lactate Dehydrogenase (313-618) U/L Total Protein (6.3-8.2) g/dL Albumin (3.5-5.0) g/dL Procalcitonin (0.02-0.09) ng/mL Microbiology - Last 24 Hours (Table) 10/13/20 12:47 Gram Stain - Preliminary Sputum Sputum Culture - Preliminary 10/12/20 15:24 Urine Culture - Preliminary Urine,Catheterized Gram Neg Bacilli 10/12/20 15:24 Blood Culture - Preliminary Blood No Growth after 24 hours Assessment and Plan Plan: #1. Acute hypoxic respiratory failure secondary to acute COVID 19 related pneumonitis, status post Tocilizumab and 1 unit of convalescent plasma on 10/03/2020, admitted to the ICU on 10/03/2020, intubated for worsening respiratory failure on 10/07/2020. The patient remains on Decadron 6 mg IV every 24 hours. The patient is sedated and currently she is on paralytics and the patient's inflammatory markers are quite elevated. The patient is on Eliquis for anticoagulation especially with her underlying atrial fibr illation/flutter. I do not see any major change in her chest x-ray findings today. The patient remains on a mechanical ventilator. She is on a PEEP of 16 with an FiO2 of 40% and blood gases is showing some marginal oxygenation. I would say the condition is essentially the same as yesterday. Her PEEP is at 14 which we dropped and I do not see any further room for weaning #2 History of paroxysmal atrial fibrillation, currently on a Cardizem drip at 15 mg an hour and amiodarone drip at 0.5 mg per minute. The patient is also on Eliquis for anticoagulation. The patient is also on metoprolol at a dose of 100 mg by mouth twice a day. #3. Hypotension, she is currently off norepinephrine . The patient has a normal ejection fraction of 55-60%. #4. Increased d-dimer, related to acute COVID 19, d-dimer from today's at 9.6 #5. Increased transaminases related to acute viral pneumonia. Ultrasound abdomen was completed showing multiple gallbladder stones, however total bilirubin level is normal at 0.5 #6 mild leukocytosis, and the patient remains on IV cefepime for broad-spectrum antibiotic coverage. The white cell count is 26 and the patient has gram- negative bacillus in the urine. Procal IS BEING REPEATED AND THE PATIENT IS CURRENTLY ON IV CEFEPIME. #7 enteral feeding for nutritional support Plan: Continue ventilator support Wean down the PEEP down to 14 Keep sedation with propofol Give the patient another paralytic holiday today Continue Decadron 6 mg IV every 24 hours Continue Eliquis for anticoagulation Continue enteral feeding for nutritional support Monitor inflammatory markers, d-dimer was elevated LDH is also elevated Cardiac rhythm is currently A. fib/flutter and the patient is on amiodarone and metoprolol combination, and the patient is on a Cardizem drip at 15 mg an hour and amiodarone at 0.5 mg per minute. The patient is still on metoprolol 100 mg by mouth TID. The patient is on anticoagulation with Eliquis. Continue enteral feeding for nutritional support Peter another dose of Lasix 40 mg IV We'll continue to follow. Condition is critical Physical care evaluation that was on a more than 30 minutes
--- NOTE | 2020-10-14 09:44 | XR ---
EXAMINATION TYPE: XR chest 1V portable DATE OF EXAM: 10/14/2020 COMPARISON: Chest x-ray 10/13/2020 HISTORY: Covid pneumonia, intubated TECHNIQUE: Single frontal view of the chest is obtained. FINDINGS: There are overlying leads. Endotracheal tube, NG tube, left-sided central venous catheter are stable and overlying appropriate positions. There are overlying artifacts. No evident pneumothora x or sizable effusion. Diffuse bilateral airspace disease, prominent interstitium again noted. Cardia c mediastinal silhouette is stable. Aorta is dense. IMPRESSION: Findings consistent with Covid pneumonia. Correlate for ARDS, edema.
[2020-10-14] MEDS: AMIODARONE 450 MG in DEXTROSE 5% IN WATER 250 ML IV SCH ×4 (10:47→23:59)
[2020-10-14 12:56] LABS: Ferritin 712.3 ng/mL (10.0-291.0)
[2020-10-14] MEDS: SODIUM CHLORIDE 0.9% 500 ML 500 ML IV SCH (16:50)
--- NOTE | 2020-10-14 18:45 | P.PN ---
Progress Note - Text Progress Note Date: 10/14/20 Presenting complaint Shortness of breath History of presenting complaint Patient is a 60-year-old female, follows with Dr. Herberth Hurd, with no known past medical history who presented to the ER secondary to shortness of breath and cough. She was diagnosed with COVID 19 on 09/23/20. In the ER she was saturating 85% on room air and was found to be in A. fib with RVR and heart rates 120 to 130. Initial labs showed d-dimer of 1.77, lymphocytes 0.5, sodium 132, carbon dioxide 19, BUN 25, AST 122, ALT 47, LDH 2894, and CRP to exceed 8.2. She was admitted and was started on Decadron. She was outside of the window for Remdesivir. She was started on a Cardizem drip as well as metoprolol orally for her A. fib. She was also started on a heparin drip. She's given fluids for her hyponatremia. Pulmonary was consulted. She was requiring a nonrebreather on admission and overnight on 10/03 she was requiring maximal therapy through an air follow along with her nonrebreather to maintain low normal O2 sats. She converted to normal sinus rhythm and her Cardizem drip was stopped. Cardiology was consulted for her A. fib. She was subsequently transferred to the ICU. She had reported some leg pain and venous Dopplers were negative in bilateral lower extremities heparin drip was stopped and she had converted to normal sinus mechanism and she was subsequently started on prophylactic Lovenox. Echocardiogram showed ejection fraction 55-60% with moderate LVH. She was unable to tolerated AIRVO and was started on BiPap. Patient opted to change her CODE STATUS to DO NOT INTUBATE (October 08 patient respiratory status declined. Patient's sister obtained an emergency guardianship through the court and after she discussed with Dr. Park he decided to intubate the patient. This morning patient is on propofol and Nimbex. But the FiO2 60 the PEEP 16. I did get a call from the nurse and also from the social work instructor for request for transfer to it was to [place] per sister and dog food shredder operator Dr. Park for ECMO. I did speak to the admitting office of the day dog food shredder operator , home with home I discussed the case at length. He said that the patient was not a candidate for transfer and can be managed here. I did give him Dr. Park's cell number for further conversation regarding his advice for management here.) Patient's again had an episode of paroxysmal atrial fibrillation Today ICU: Remains in atrial flutter uncontrolled rate. Drips include IV amiodarone, IV propofol, IV Cardizem at 15 mg,. [address] Ventilator FiO2 61 PEEP of 12. Review of systems: Patient intubated Active Medications Acetaminophen (Acetaminophen Tab 325 Mg Tab) 650 mg PO Q6HR PRN PRN Reason: Mild Pain or Fever > 100.5 Last Admin: 10/13/20 14:18 Dose: 650 mg Documented by: Albuterol Sulfate (Albuterol Hfa Inhaler) 2 puff INHALATION RT-Q4H [facility] Last Admin: 10/14/20 15:37 Dose: 2 puff Documented by: Albuterol Sulfate (Albuterol Hfa Inhaler) 2 puff INHALATION RT-QID PRN PRN Reason: Shortness Of Breath Or Wheezing Apixaban (Apixaban 5 Mg Tab) 5 mg PO BID [facility] Last Admin: 10/14/20 07:53 Dose: 5 mg Documented by: Artificial Tears (Artificial Tears-Hypromellose Drops 15 Ml Btl) 2 drops BOTH EYES Q4H [facility] Last Admin: 10/14/20 17:19 Dose: 2 drops Documented by: Ascorbic Acid (Ascorbic Acid 500 Mg Tab) 1,000 mg PO DAILY [facility] Last Admin: 10/14/20 07:53 Dose: 1,000 mg Documented by: Chlorhexidine Gluconate (Chlorhexidine Gluconate 15 Ml Cup) 15 ml MUCOUS MEM BID [facility] Last Admin: 10/14/20 07:54 Dose: 15 ml Documented by: Cholecalciferol (Cholecalciferol 25 Mcg (1000 Iu) Tablet) 100 mcg PO DAILY [facility] Last Admin: 10/14/20 07:53 Dose: 100 mcg Documented by: Dexamethasone Sodium Phosphate (Dexamethasone Sod Phosphate 10 Mg/Ml 1 Ml Vial) 6 mg IV DAILY [facility] Last Admin: 10/14/20 07:54 Dose: 6 mg Documented by: Famotidine (Famotidine 20 Mg/2 Ml Vial) 20 mg IV BID [facility] Last Admin: 10/14/20 07:54 Dose: 20 mg Documented by: Propofol 1,000 mg/ IV Solution 100 mls @ 0 mls/hr IV .Q0M [facility]; Protocol Last Admin: 10/14/20 18:23 Dose: 50 mcg/kg/min, 39 mls/hr Documented by: Cisatracurium Besylate 200 mg/ (Sodium Chloride) 200 mls @ 14.916 mls/hr IV .[id number] [facility]; Protocol Last Admin: 10/14/20 16:50 Dose: Not Given Documented by: Norepinephrine Bitartrate 4 mg (/ Sodium Chloride) 254 mls @ 23.793 mls/hr IV .[id number] [facility]; Protocol Last Admin: 10/14/20 12:15 Dose: Not Given Documented by: Amiodarone HCl 450 mg/ (Dextrose/Water) 250 mls @ 16.667 mls/hr IV .Q15H [facility]; Protocol Last Admin: 10/14/20 10:47 Dose: 0.5 mg/min, 16.667 mls/hr Documented by: Cefepime HCl 2 gm/ Sodium (Chloride) 100 mls @ 25 mls/hr IVPB Q12HR [facility] Last Admin: 10/14/20 07:54 Dose: 25 mls/hr Documented by: Diltiazem HCl 125 mg/ Sodium (Chloride) 125 mls @ 15 mls/hr IV .Q8H20M [facility] Last Admin: 10/14/20 15:08 Dose: 15 mg/hr, 15 mls/hr Documented by: Sodium Chloride (Saline 0.9%) 500 mls @ 20 mls/hr IV .Q24H [facility] Last Admin: 10/14/20 16:50 Dose: Not Given Documented by: Metoprolol Tartrate (Metoprolol Tartrate 50 Mg Tab) 100 mg PO TID [facility] Last Admin: 10/14/20 17:17 Dose: 100 mg Documented by: Morphine Sulfate (Morphine Sulfate 2 Mg/Ml Syringe) 2 mg IVP Q4H PRN PRN Reason: anxiety Last Admin: 10/13/20 11:38 Dose: 2 mg Documented by: Naloxone HCl (Naloxone 0.4 Mg/Ml 1 Ml Vial) 0.2 mg IV Q2M PRN PRN Reason: Opioid Reversal Ondansetron HCl (Ondansetron 4 Mg/2 Ml Vial) 4 mg IVP Q8HR PRN PRN Reason: Nausea And Vomiting Zinc Sulfate (Zinc Sulfate 220 Mg Cap) 220 mg PO DAILY [facility] Last Admin: 10/14/20 07:53 Dose: 220 mg Documented by: On examination: VITAL SIGNS: 99.2, 12, 30, 103/54, 96% on the ventilator GENERAL APPEARANCE: Sedated, intubated , RESPIRATORY: Respiratory effort increased. Accessory muscles working Rest of the exam per pulmonary and nursing Investigations: October 14: WBC 26.5 hemoglobin 10.6 platelets 178 d-dimer 9.63 ABG with a pH of 7.38 pCO2 57 pO2 of 57 potassium 4.5 bun 65 creatinine 1.12 LDH 3 mL 78 pro- calcitonin 0.17 October 06: WBC 7.4 hemoglobin 13.2 platelets 238 d-dimer 22.8 potassium 5.3 creatinine 0.8 CRP 25.1 Abdominal ultrasound limited: Very limited exam. Possible gallstones. October 05: WBC 5.3 hemoglobin 12.9 platelets 260 d-dimer 3.65 potassium 4.9 creatinine 0.81 CRP 45.6 Chest x-ray film personally reviewed by me-[October 05]: Bilateral infiltrates more so in the lower zone Lower extremity Doppler ultrasound: Negative for DVT 2-D echocardiogram: Concentric LVH, EF 55-60% Admission labs: D-dimer 1.77 CRP 68.2 Assessment and plan: COVID 19 pneumonia with acute hypoxic respiratory failure,-not improving -Continue with Decadron, Zinc, vitamin C, vitamin D, IV heparin changed to eliquis [ Convolescent Plasma 10/03, Toci X 1 on 10/03 ] Septic. Suspect secondary bacterial infection-slow to respond IV cefepime Acute hypoxic respiratory failure secondary to COVID 19 pneumonia,-not improving. Remains on ventilator support, FiO2 60% Paroxysmal atrial fibrillation, repeated episodes of rapid ventricular rate- currently sinus rhythm. Back into atrial fibrillation-rate uncontrolled eliquis. Currently IV Cardizem and IV amiodarone Transaminitis likely secondary to illness -Follow liver enzymes. ultrasound: Poor quality. -Gallstones, asymptomatic Hyponatremia secondary decreased solute intake in addition to water. -Corrected -Morbid obesity with BMI 41 outpatient weight loss -Hyperkalemia Corrected -Legal guardian: Krista patient's sister Ramona fib remains uncontrolled. Prognosis guarded. Critical
[2020-10-14] MEDS: ACETAMINOPHEN TAB 325 MG TAB PO PRN (20:49)
[2020-10-15] MEDS: NOREPINEPHRINE 4 MG in SODIUM CHLORIDE 0.9% 250 ML IV SCH (01:29)
[2020-10-15] MEDS: ALBUTEROL HFA INHALER INHALATION SCH ×5 (03:18→19:47)
[2020-10-15] MEDS: ARTIFICIAL TEARS-HYPROMELLOSE DROPS 15 ML BTL BOTH EYES SCH ×6 (04:26→20:27)
[2020-10-15 04:49] LABS: ABG Base Excess 8.6 mmol/L; ABG HCO3 33 mmol/L (21-25); ABG Oxygen Saturation 95.7 % (94-97); ABG PCO2 53 mmHg (35-45); ABG PH 7.41 (7.35-7.45); ABG PO2 77 mmHg (83-108); ABG TCO2 35 mmol/L (19-24)
[2020-10-15 05:39] LABS: Anisocytosis Slight; Basophils # (A) 0.1 k/uL (0-0.2); Basophils % (A) 0 %; Eosinophils % (A) 0 %; HGB 10.7 gm/dL (11.4-16.0); Lymphocytes % (A) 4 %; MCH 28.8 pg (25.0-35.0); MCHC 32.3 g/dL (31.0-37.0); MCV 89.2 fL (80.0-100.0); Mean Platelet Volume 8.3; Monocytes # (A) 0.6 k/uL (0-1.0); Monocytes % (A) 3 %; Neutrophils % (A) 92 %; Platelet Count 197 k/uL (150-450); RDW 16.1 % (11.5-15.5); WBC 21.8 k/uL (3.8-10.6)
[2020-10-15 05:55] LABS: Calcium 7.8 mg/dL (8.4-10.2); Magnesium 2.6 mg/dL (1.6-2.3); Potassium 4.3 mmol/L (3.5-5.1); Total Bilirubin 0.5 mg/dL (0.2-1.3); Total Protein 5.4 g/dL (6.3-8.2)
[2020-10-15 05:56] LABS: Allen Test Performed? no
[2020-10-15] MEDS: CISATRACURIUM 200 MG in SODIUM CHLORIDE 0.9% 180 ML IV SCH (06:09)
[2020-10-15] MEDS: DILTIAZEM 125 MG in SODIUM CHLORIDE 0.9% 100 ML IV SCH ×2 (08:20→15:49)
--- NOTE | 2020-10-15 08:21 | XR ---
EXAMINATION TYPE: XR chest 1V portable DATE OF EXAM: 10/15/2020 COMPARISON: Chest x-ray 10/14/2020 HISTORY: Intubated TECHNIQUE: Single frontal view of the chest is obtained. FINDINGS: Endotracheal tube and orogastric tube, left-sided central venous catheter are all again no hank overlying appropriate positions, there are overlying artifacts, patient is rotated. There is no e vident pneumothorax or pleural effusion. Bilateral airspace disease is present, there may be some imp rovement in aeration at the lung bases. Cardiac mediastinal silhouette is stable. IMPRESSION: Some improvement in aeration is suspected.
--- NOTE | 2020-10-15 08:22 | P.PN ---
Subjective Progress Note Date: 10/15/20 On today's evaluation of 10/12/2020 seeing this patient for a follow-up. Is a 60-year-old male patient with COVID 19 pneumonia. Pneumonia and secondary hypoxic respiratory failure. The patient was intubated and placed on a mechanical ventilator. The patient was admitted to the ICU on 10/03/2020 and the patient was extubated on 10/07/2020. Initially the patient was on high flow oxygen which she failed and subsequently his condition progressed and the patient has to be intubated and placed on a mechanical ventilator. The patient has already received 2 units of convalescent plasma, the patient has received Tocilizumab and the patient is currently on steroids. On today's evaluation, the patient is sedated with propofol at 45 mcg/kg per minute and the patient is calm and comfortable successful mechanical ventilator. Propofol is running at 45 mics respiratory per minute. The patient was paralyzed earlier with Nimbex and this was discontinued and he had to be placed back and the patient is currently back on nimbex 1 mcg/kg per minute.. The patient is also intubated on a mechanical ventilator within assist-control at the rate of 30, FiO2 of 60%, PEEP 16 with a tidal volume of 400. Blood gases were noted. The ABG from this morning showed a pH of 7.32 with a pCO2 of 62 and pO2 of 122. The chest x-ray from today is unchanged and the patient has bilateral pulmonary infiltrates more so on the right lower lobe. ET tube is in a good location. As for the blood work, the patient has a white cell count of 23 with a hemoglobin of 12 and a d- dimer of 8.66, BUN is a 50 with a creatinine of 0.9, LDH level is 4302 and a CRP level is at 9.4. The patient is hemodynamically stable on no pressors. Patient was being performed earlier and currently is in a supine body position. The chest x-ray from today showing diffuse breath and pulmonary infiltrates and ET tube is in a good location. The patient is on a enteral feeding with vital high protein at the rate of 40 mL an hour. The neck fluid balance over the past 24 hours is -226 mL and there are no signs of any significant fluid overload. Producing adequate amount of urine output. The cardiac rhythm is A. fib/flutter and the patient is currently on Eliquis. The peak airway pressure is 34 anesthetic pressures around 33. On 10/13/2020 on seeing the patient for a follow-up. The patient remains in intensive care unit. This is a 60-year-old female patient with Covid interrelated pneumonia with hypoxic respiratory failure. The patient has been on a mechanical ventilator since 10/07/2020. The patient currently is on propofol which is running at 60 mcg/kg per minute and the patient is also on paralytics which is running in the form of Nimbex at 1 mcg/kg per minute. Attempts to wean off the Nimbex failed and the patient had to be paralyzed again. Meanwhile, the patient remains on a mechanical ventilator, assist control rate of 30 with an FiO2 of 40% and a PEEP of 16 and a tidal volume of 400. The blood gases from today shows a pH of 7.33 with a pCO2 of 61 and pO2 of 71. The peak airway pressures are 33 and a plateau airway pressure is 31. The chest x-ray from today show an stable bilateral pulmonary infiltrates, with right midlung and left lower lobe pulmonary infiltration and the chest x-ray findings are essentially stable since yesterday without any significant interval change. Her potassium level was at 5.7 and his morning and based on that the patient was given a dose of Kayexalate 30 Repeat potassium is pending for now. Meanwhile, the patient remains hemodynamically stable. The patient is on levo fed, at 0.06 mcg/kg per minute. This should be gradually weaned off today. The patient is on enteral feeding for nutritional support and the patient is on vital high protein at 40 mL an hour. The patient remains in episodes of atrial fibrillation/flutter and this morning is she is on Cardizem at 10 mg an hour and the patient was loaded again with amiodarone and maintained on a infusion of amiodarone at 0.5 she'll be switched back to oral amiodarone today. She remains on Eliquis 5 mg by mouth twice a day. Empiric antibiotic coverage with IV cefepime. She remains on Decadron 6 mg IV every 24 hours. IV fluids with normal saline at the rate of 25 mL an hour. The fluid balance over the past 24 hours has been -49 mL. 10/14/2020, I'm seeing the patient for a follow-up. The patient was intubated and she has been on a mechanical ventilator since 10/07/2020. I'm seeing her today in follow-up. She remains on propofol at 45 mcg/kg per minute and the patient is currently on Nimbex at 1 mcg/kg per minute. She is well sedated and paralyzed. Paralytic Cardizem being given to her daily basis. She failed yesterday and the same of discharge today. She had a mechanical ventilator assist control mode at the rate of 30 with an FiO2 of 40% and a PEEP of 12 with tidal volume of 400. Blood gases from today shows a pH of 7.3388 with a pCO2 of 57 and pO2 of 57. As for the chest x-ray, I do not see any interval change in the patient has diffuse bilateral pulmonary infiltrates. Peak airway pressure is 31 with a static pressure of 26. IV fluids with normal saline at the rate of 25 mL an hour. She is still having issues with atrial fibrillation. She is currently on a combination of Cardizem drip at the rate of 15 mg an hour and amiodarone at 0.5 mg per minute and metoprolol at a dose of 100 mg by mouth 3 times a day. Earlier this morning, the patient was still tachycardic and the patient was being considered for digoxin. Nevertheless, her heart rate currentl y is down at 9365 per minute. Earlier this morning it was in the 130s up to 160 range. Otherwise, the patient is on no pressors since yesterday, the patient's electrolytes today show improvement in her potassium down to 4.7 being given Kayexalate. BUN 65 with a creatinine of 1.1. The LDH level is 3378 which is still elevated although lower compared to yesterday and his CRP level is at 7.7. Serum bicarb is 34.. Calcitonin levels of 0.17 and the patient is currently on empiric antibiotic coverage with cefepime. Urine culture was showing gram- negative bacillus and the final culture are still pending for now. We will cefepime gram-negative bacilli fluid: Balance balance is positive of 1 L over the past 24 hours. 2020, the patient is being seen for a follow-up. He remains intubated on a mechanical ventilator. Currently on propofol running at 50 mcg/kg per minute and the patient wishes currently off Nimbex and the patient was taken off the paralytics yesterday. Meanwhile, the patient remains on a mechanical ventilator on assist control mode and she is on assist-control at the rate of 30 with an FiO2 of 50% and a PEEP currently is at 12 with a tidal volume of 400. The peak and static pressures are lower with a levels of 28 and 19 respectively. The blood gases from today shows a pH of 7.41 with a pCO2 of 53 and pO2 of 77 and the patient's agitation is improved. The chest x-ray from today showing diffuse bilateral pulmonary infiltrates, unchanged with orotracheal tube being in a good location. The patient is being treated with Decadron 6 mg IV every 24 hours. She remains on Eliquis 5 mg by mouth twice a day. She has a d-dimer of 8.7 from today, slightly lower and the rest of the inflammatory markers are still pending for now. Meanwhile, hemodynamically, the patient is stable and she is on no pressors. Her atrial fibrillation/flutter is under much better control. She is currently in a flutter rhythm. Amiodarone is running at 0.5 mg per minute and the patient is also on metoprolol 100 mg by mouth 3 times a day and Cardizem at 15 mg an hour. The plan is to continue these per cardiology. The patient is also on empiric antibiotic coverage with IV cefepime. The pro calcitonin level was 0.17. The patient is afebrile. No respiratory secretions. Cultures of been all negative. I'm inclined to continue the antibiotics as the patient has E. coli in her urine off for 10/12. Objective - Vital Signs Vital signs: Vital Signs Temp 98.8 F 10/15/20 04:00 Pulse 104 H 10/15/20 07:00 Resp 30 H 10/15/20 07:00 BP 108/56 10/13/20 21:00 Pulse Ox 94 L 10/15/20 07:00 Intake & Output 10/14/20 10/15/20 10/15/20 18:59 06:59 18:59 Intake Total 2609.379 0253.004 23 Output Total 1910 1400 50 Balance -325.829 -28.996 -27 Weight 129 kg 126 kg Intake: IV 253 376 23 0.9 220 240 20 Cefepime 2 gm In Sodium 100 Chloride 0.9% 100 ml @ 25 mls/hr IVPB Q12HR [facility] Rx #:[id number] Pressure Bags 33 36 3 Intake, IV Titration 801.171 745.004 Amount Amiodarone 450 mg In 241.672 220.004 Dextrose 5% in Water 250 ml @ 0.5 MG/MIN 16.667 mls/hr IV .Q15H [facility] Rx#: [id number] Cefepime 2 gm In Sodium 100 Chloride 0.9% 100 ml @ 25 mls/hr IVPB Q8HR [facility] Rx# :[id number] Cisatracurium 200 mg In 44.499 Sodium Chloride 0.9% 180 ml @ 2 MCG/KG/MIN 14.916 mls/hr IV .[id number] [facility] Rx #:[id number] Diltiazem 125 mg In 215.00 125 Sodium Chloride 0.9% 100 ml @ 15 MG/HR 15 mls/hr IV .Q8H20M [facility] Rx#: [id number] propofoL 1,000 mg In 200 400 Empty Bag 1 bag @ Titrate IV .Q0M [facility] Rx#: [id number] Tube Feeding 440 200 Other 90 50 Output: Urine 1910 1400 50 Other: Voiding Method Indwelling Catheter Indwelling Catheter ABP, PAP, CO, CI - Last Documented Arterial Blood Pressure 127/59 - Exam The patient is currently intubated and sedated, mechanically ventilated. propofol are still running for sedation and off paralysis Head exam was generally normal. There was no scleral icterus or corneal arcus. Mucous membranes were moist. HEENT examination is grossly unremarkable. Oral endotracheal tube is noted. Neck supple. Full range of motion. No adenopathy thyromegaly or neck vein distention. A left internal jugular triple-lumen catheter is noted. Cardiovascular examination reveals an irregular rhythm and rate. Irregular S1- S2 and consistent with atrial fibrillation/flutter. No S3 or S4. No discernible murmur noted. The rate is under better control with atrial fibrillation for now. Lungs reveal coarse bilateral rhonchi and crackles. Breath sounds equal. No wheezes. Breath sounds are bit worse today. Exam is essentially unchanged. Abdomen soft bowel sounds are heard. No masses or tenderness. Extremities are intact. No cyanosis clubbing or edema. Skin is without rash or lesion. Neurologic examination is nonfocal. The patient is to be given a sedation holiday and her mental status needs to be assessed. - Labs CBC & Chem 7: 10/15/20 05:00 10/15/20 05:00 Labs: Abnormal Lab Results - Last 24 Hours (Table) 10/14/20 10/14/20 10/15/20 Range/Units 03:40 03:40 04:47 WBC (3.8-10.6) k/uL RBC (3.80-5.40) m/uL Hgb (11.4-16.0) gm/dL Hct (34.0-46.0) % RDW (11.5-15.5) % Neutrophils # (1.3-7.7) k/uL D-Dimer (<0.60) mg/L FEU ABG pCO2 53 H (35-45) mmHg ABG pO2 77 L (83-108) mmHg ABG HCO3 33 H (21-25) mmol/L ABG Total CO2 35 H (19-24) mmol/L Carbon Dioxide (22-30) mmol/L BUN (7-17) mg/dL Creatinine (0.52-1.04) mg/dL Glucose (74-99) mg/dL Calcium (8.4-10.2) mg/dL Magnesium (1.6-2.3) mg/dL Ferritin 712.3 H (10.0-291.0) ng/mL AST (14-36) U/L ALT (4-34) U/L Total Protein (6.3-8.2) g/dL Albumin (3.5-5.0) g/dL Procalcitonin 0.17 H (0.02-0.09) ng/mL 10/15/20 10/15/20 10/15/20 Range/Units 05:00 05:00 05:00 WBC 21.8 H (3.8-10.6) k/uL RBC 3.70 L (3.80-5.40) m/uL Hgb 10.7 L (11.4-16.0) gm/dL Hct 33.0 L (34.0-46.0) % RDW 16.1 H (11.5-15.5) % Neutrophils # 20.0 H (1.3-7.7) k/uL D-Dimer 8.70 H (<0.60) mg/L FEU ABG pCO2 (35-45) mmHg ABG pO2 (83-108) mmHg ABG HCO3 (21-25) mmol/L ABG Total CO2 (19-24) mmol/L Carbon Dioxide 33 H (22-30) mmol/L BUN 66 H (7-17) mg/dL Creatinine 1.05 H (0.52-1.04) mg/dL Glucose 128 H (74-99) mg/dL Calcium 7.8 L (8.4-10.2) mg/dL Magnesium 2.6 H (1.6-2.3) mg/dL Ferritin (10.0-291.0) ng/mL AST 46 H (14-36) U/L ALT 141 H (4-34) U/L Total Protein 5.4 L (6.3-8.2) g/dL Albumin 3.0 L (3.5-5.0) g/dL Procalcitonin (0.02-0.09) ng/mL Microbiology - Last 24 Hours (Table) 10/12/20 15:24 Urine Culture - Final Urine,Catheterized Escherichia coli 10/12/20 15:24 Blood Culture - Preliminary Blood No Growth after 48 hours Assessment and Plan Plan: #1. ARDS/Acute hypoxic respiratory failure secondary to acute COVID 19 related pneumonitis, status post Tocilizumab and 1 unit of convalescent plasma on 10/03/2020, admitted to the ICU on 10/03/2020, intubated for worsening respiratory failure on 10/07/2020. The patient remains on Decadron 6 mg IV every 24 hours. The patient is on Eliquis for anticoagulation especially with her underlying atrial fibrillation/flutter. I do not see any major change in her chest x-ray findings today. The patient remains on a mechanical ventilator. There is a drop in the peak and static or pressure. Currently is on a PEEP of 12 and FiO2 of 50% Chest x-ray is showing stable bilateral pulmonary infiltrates. #2 History of paroxysmal atrial fibrillation, currently on a Cardizem drip at 15 mg an hour and amiodarone drip at 0.5 mg per minute. The patient is also on Eliquis for anticoagulation. The patient is also on metoprolol at a dose of 100 mg by mouth twice a day. #3. Hypotension, she is currently off norepinephrine . The patient has a normal ejection fraction of 55-60%. #4. Increased d-dimer, related to acute COVID 19, d-dimer from today's at 9.6 #5. Increased transaminases related to acute viral pneumonia. Ultrasound abdomen was completed showing multiple gallbladder stones, however total bilirubin level is normal at 0.5 #6 mild leukocytosis, and the patient remains on IV cefepime for broad-spectrum antibiotic coverage. Note that the patient's leukocytosis improving. The patient was found to have E. coli in the urine or patient is on cefepime. Progesterone was minimally elevated at 0.17. We are going to continue to follow 5 day course of cefepime. Note that the patient has already received Actemra #7 enteral feeding for nutritional support #8 E. coli in the urine/UTI. Plan: Continue ventilator support Wean down the PEEP down to 12, Fio2 50% Keep sedation with propofol give the patient a sedation holiday and the patient is currently off paralytics Continue Decadron 6 mg IV every 24 hours Continue Eliquis for anticoagulation Continue enteral feeding for nutritional support, at oral Colace for bowel motility and bowel movements Monitor inflammatory markers, d-dimer was elevated LDH is also elevated Cardiac rhythm is currently A. fib/flutter and the patient is on amiodarone and metoprolol combination, and the patient is on a Cardizem drip at 15 mg an hour and amiodarone at 0.5 mg per minute. The patient is still on metoprolol 100 mg by mouth TID. The patient is on anticoagulation with Eliquis. Lasix 40 mg IV and the patient will be placed on standing order of Lasix 40 mg every 12 hours Treated total of 5 day course of IV cefepime regarding E. coli in the urine We'll continue to follow. Condition is critical Physical care evaluation that was on a more than 30 minutes Time with Patient: Greater than 30
[2020-10-15] MEDS: CHLORHEXIDINE GLUCONATE 15 ML CUP MUCOUS MEM SCH ×2 (08:37→20:13)
[2020-10-15] MEDS: ASCORBIC ACID 500 MG TAB PO SCH (08:37)
[2020-10-15] MEDS: CHOLECALCIFEROL 25 MCG (1000 IU) TABLET PO SCH (08:37)
[2020-10-15] MEDS: ZINC SULFATE 220 MG CAP PO SCH (08:38)
[2020-10-15] MEDS: FAMOTIDINE 20 MG/2 ML VIAL IV SCH ×2 (08:38→20:14)
[2020-10-15] MEDS: FUROSEMIDE 10 MG/ML 4 ML VIAL IV SCH ×2 (08:38→20:13)
[2020-10-15] MEDS: APIXABAN 5 MG TAB PO SCH ×2 (08:38→20:14)
[2020-10-15] MEDS: METOPROLOL TARTRATE 50 MG TAB PO SCH ×3 (08:38→20:14)
[2020-10-15] MEDS: CEFEPIME 2 GM in SODIUM CHLORIDE 0.9% 100 ML IVPB SCH ×2 (08:39→20:14)
[2020-10-15] MEDS: DOCUSATE ORAL SOLN 100 MG/10 ML CUP PO SCH ×3 (08:43→21:58)
[2020-10-15] MEDS: dexAMETHasone 2 MG TAB PO SCH (08:45)
--- NOTE | 2020-10-15 09:06 | PN ---
PROGRESS NOTE Mrs. Olmedo is a 60-year-old female who presented with respiratory failure related to COVID-19 pneumonia. She remains intubated and sedated. She is in atrial fibrillation-atrial flutter, but her ventricular response is under much under much better control. She has no evidence of ventricular tachycardia. Her urine output is stable. She continues to be on Cardizem to 15 mg an hour IV, amiodarone drip, metoprolol tartrate 100 mg 3 times a day, and Eliquis 5 mg twice a day. Her respiratory status remains unstable. She is not ready for weaning. PHYSICAL EXAMINATION: Blood pressure is running in the 120s with the heart rate in the 90s. Her temperature is 98.8. No physical examination was done. IMPRESSION: 1. Respiratory failure with COVID-19 pneumonia. Remains intubated. 2. Atrial fibrillation-atrial flutter with improved ventricular rate, anticoagulated. 3. Fever, improved. RECOMMENDATION: From the cardiac standpoint, will continue present therapy. I will continue IV amiodarone for now and depending on her ventricular response and her overall status, further adjustments will be done. MMODL / IJN: [id number] /
[2020-10-15 10:01] LABS: Ferritin 712.4 ng/mL (10.0-291.0)
[2020-10-15] MEDS: AMIODARONE 450 MG in DEXTROSE 5% IN WATER 250 ML IV SCH ×2 (14:23)
[2020-10-15] MEDS: ACETAMINOPHEN TAB 325 MG TAB PO PRN ×2 (16:50→23:40)
[2020-10-15 18:35] LABS: ABG Base Excess 7.7 mmol/L; ABG HCO3 32 mmol/L (21-25); ABG Oxygen Saturation 88.6 % (94-97); ABG PCO2 48 mmHg (35-45); ABG PH 7.43 (7.35-7.45); ABG TCO2 33 mmol/L (19-24)
[2020-10-15 18:37] LABS: ABG PO2 54 mmHg (83-108); Allen Test Performed? no
--- NOTE | 2020-10-15 18:38 | P.PN ---
Progress Note - Text Progress Note Date: 10/15/20 Presenting complaint Shortness of breath History of presenting complaint Patient is a 60-year-old female, follows with Dr. Herberth Hurd, with no known past medical history who presented to the ER secondary to shortness of breath and cough. She was diagnosed with COVID 19 on 09/23/20. In the ER she was saturating 85% on room air and was found to be in A. fib with RVR and heart rates 120 to 130. Initial labs showed d-dimer of 1.77, lymphocytes 0.5, sodium 132, carbon dioxide 19, BUN 25, AST 122, ALT 47, LDH 2894, and CRP to exceed 8.2. She was admitted and was started on Decadron. She was outside of the window for Remdesivir. She was started on a Cardizem drip as well as metoprolol orally for her A. fib. She was also started on a heparin drip. She's given fluids for her hyponatremia. Pulmonary was consulted. She was requiring a nonrebreather on admission and overnight on 10/03 she was requiring maximal therapy through an air follow along with her nonrebreather to maintain low normal O2 sats. She converted to normal sinus rhythm and her Cardizem drip was stopped. Cardiology was consulted for her A. fib. She was subsequently transferred to the ICU. She had reported some leg pain and venous Dopplers were negative in bilateral lower extremities heparin drip was stopped and she had converted to normal sinus mechanism and she was subsequently started on prophylactic Lovenox. Echocardiogram showed ejection fraction 55-60% with moderate LVH. She was unable to tolerated AIRVO and was started on BiPap. Patient opted to change her CODE STATUS to DO NOT INTUBATE (October 08 patient respiratory status declined. Patient's sister obtained an emergency guardianship through the court and after she discussed with Dr. Park he decided to intubate the patient. This morning patient is on propofol and Nimbex. But the FiO2 60 the PEEP 16. I did get a call from the nurse and also from the social services aide for request for transfer to it was to [place] per sister and fire alarm operator Dr. Park for ECMO. I did speak to the admitting office of the day fire alarm operator , home with home I discussed the case at length. He said that the patient was not a candidate for transfer and can be managed here. I did give him Dr. Park's cell number for further conversation regarding his advice for management here.) Patient's again had an episode of paroxysmal atrial fibrillation Today ICU: Ventilator: FiO2 50 and a PEEP of 10. Remains in atrial flutter heart rate uncontrolled. Lives include propofol, Cardizem and 15, tube feeding. Febrile Review of systems: Patient intubated Active Medications Acetaminophen (Acetaminophen Tab 325 Mg Tab) 650 mg PO Q6HR PRN PRN Reason: Mild Pain or Fever > 100.5 Last Admin: 10/15/20 16:50 Dose: 650 mg Documented by: Albuterol Sulfate (Albuterol Hfa Inhaler) 2 puff INHALATION RT-Q4H [facility] Last Admin: 10/15/20 16:32 Dose: 2 puff Documented by: Albuterol Sulfate (Albuterol Hfa Inhaler) 2 puff INHALATION RT-QID PRN PRN Reason: Shortness Of Breath Or Wheezing Apixaban (Apixaban 5 Mg Tab) 5 mg PO BID [facility] Last Admin: 10/15/20 08:38 Dose: 5 mg Documented by: Artificial Tears (Artificial Tears-Hypromellose Drops 15 Ml Btl) 2 drops BOTH EYES Q4H [facility] Last Admin: 10/15/20 15:44 Dose: 2 drops Documented by: Ascorbic Acid (Ascorbic Acid 500 Mg Tab) 1,000 mg PO DAILY [facility] Last Admin: 10/15/20 08:37 Dose: 1,000 mg Documented by: Chlorhexidine Gluconate (Chlorhexidine Gluconate 15 Ml Cup) 15 ml MUCOUS MEM BID [facility] Last Admin: 10/15/20 08:37 Dose: 15 ml Documented by: Cholecalciferol (Cholecalciferol 25 Mcg (1000 Iu) Tablet) 100 mcg PO DAILY [facility] Last Admin: 10/15/20 08:37 Dose: 100 mcg Documented by: Dexamethasone (Dexamethasone 2 Mg Tab) 6 mg PO DAILY [facility] Last Admin: 10/15/20 08:45 Dose: 6 mg Documented by: Docusate Sodium (Docusate Oral Soln 100 Mg/10 Ml Cup) 100 mg PO BID [facility] Last Admin: 10/15/20 08:43 Dose: 100 mg Documented by: Famotidine (Famotidine 20 Mg/2 Ml Vial) 20 mg IV BID [facility] Last Admin: 10/15/20 08:38 Dose: 20 mg Documented by: Furosemide (Furosemide 10 Mg/Ml 4 Ml Vial) 40 mg IV Q12HR [facility] Last Admin: 10/15/20 08:38 Dose: 40 mg Documented by: Propofol 1,000 mg/ IV Solution 100 mls @ 0 mls/hr IV .Q0M [facility]; Protocol Last Admin: 10/15/20 12:04 Dose: 30 mcg/kg/min, 22.68 mls/hr Documented by: Amiodarone HCl 450 mg/ (Dextrose/Water) 250 mls @ 16.667 mls/hr IV .Q15H [facility]; Protocol Last Admin: 10/15/20 14:23 Dose: 0.5 mg/min, 16.667 mls/hr Documented by: Cefepime HCl 2 gm/ Sodium (Chloride) 100 mls @ 25 mls/hr IVPB Q12HR [facility] Last Admin: 10/15/20 08:39 Dose: 25 mls/hr Documented by: Diltiazem HCl 125 mg/ Sodium (Chloride) 125 mls @ 15 mls/hr IV .Q8H20M [facility] Last Admin: 10/15/20 15:49 Dose: 15 mg/hr, 15 mls/hr Documented by: Sodium Chloride (Saline 0.9%) 500 mls @ 20 mls/hr IV .Q24H [facility] Last Admin: 10/14/20 16:50 Dose: Not Given Documented by: Metoprolol Tartrate (Metoprolol Tartrate 50 Mg Tab) 100 mg PO TID [facility] Last Admin: 10/15/20 15:44 Dose: 100 mg Documented by: Morphine Sulfate (Morphine Sulfate 2 Mg/Ml Syringe) 2 mg IVP Q4H PRN PRN Reason: anxiety Last Admin: 10/13/20 11:38 Dose: 2 mg Documented by: Zinc Sulfate (Zinc Sulfate 220 Mg Cap) 220 mg PO DAILY [facility] Last Admin: 10/15/20 08:38 Dose: 220 mg Documented by: On examination: VITAL SIGNS: 100.6, 103, 30, 130/65, 91% on the ventilator GENERAL APPEARANCE: Sedated, intubated , RESPIRATORY: Respiratory effort increased. Accessory muscles working Rest of the exam per pulmonary and nursing Investigations: October 15: WBC 21.8 hemoglobin 10.7 platelets 197 d-dimer 8.7 potassium 4.3 creatinine 1.05. Chest x-ray: Bilateral infiltrates October 14: WBC 26.5 hemoglobin 10.6 platelets 178 d-dimer 9.63 ABG with a pH of 7.38 pCO2 57 pO2 of 57 potassium 4.5 bun 65 creatinine 1.12 LDH 3 mL 78 pro- calcitonin 0.17 October 06: WBC 7.4 hemoglobin 13.2 platelets 238 d-dimer 22.8 potassium 5.3 creatinine 0.8 CRP 25.1 Abdominal ultrasound limited: Very limited exam. Possible gallstones. October 05: WBC 5.3 hemoglobin 12.9 platelets 260 d-dimer 3.65 potassium 4.9 creatinine 0.81 CRP 45.6 Chest x-ray film personally reviewed by me-[October 05]: Bilateral infiltrates more so in the lower zone Lower extremity Doppler ultrasound: Negative for DVT 2-D echocardiogram: Concentric LVH, EF 55-60% Admission labs: D-dimer 1.77 CRP 68.2 Sputum: Corynebacterium stratum Urine culture: E. coli Assessment and plan: COVID 19 pneumonia with acute hypoxic respiratory failure,-not improving -Continue with Decadron, Zinc, vitamin C, vitamin D, IV heparin changed to eliquis [ Convolescent Plasma 10/03, Toci X 1 on 10/03 ] Septic. Suspect secondary bacterial not improving IV cefepime Acute hypoxic respiratory failure secondary to COVID 19 pneumonia,-not improving. Remains on ventilator support, FiO2 50 % Paroxysmal atrial fibrillation, repeated episodes of rapid ventricular rate- currently sinus rhythm. Back into atrial fibrillation-rate uncontrolled eliquis. Currently IV Cardizem and IV amiodarone Transaminitis likely secondary to illness -Follow liver enzymes. ultrasound: Poor quality. -Gallstones, asymptomatic Hyponatremia secondary decreased solute intake in addition to water. -Corrected -Morbid obesity with BMI 41 outpatient weight loss -Hyperkalemia Corrected -Acute UTI with cystitis from E. coli On IV cefepime -Legal guardian: Krista patient's sister Remains A. fib uncontrolled. Febrile. IV cefepime. Prognosis not good
[2020-10-15] MEDS: SODIUM CHLORIDE 0.9% 500 ML 500 ML IV SCH (19:35)
[2020-10-16] MEDS: DILTIAZEM 125 MG in SODIUM CHLORIDE 0.9% 100 ML IV SCH ×3 (01:05→16:45)
[2020-10-16] MEDS: ALBUTEROL HFA INHALER INHALATION SCH ×7 (01:37→23:56)
[2020-10-16] MEDS: ARTIFICIAL TEARS-HYPROMELLOSE DROPS 15 ML BTL BOTH EYES SCH ×6 (01:45→20:21)
[2020-10-16 05:11] LABS: Anisocytosis Slight; Basophils % (A) 0 %; Eosinophils % (A) 0 %; HCT 32.5 % (34.0-46.0); HGB 11.2 gm/dL (11.4-16.0); Lymphocytes # (A) 0.6 k/uL (1.0-4.8); Lymphocytes % (A) 3 %; MCH 30.4 pg (25.0-35.0); MCHC 34.6 g/dL (31.0-37.0); MCV 87.9 fL (80.0-100.0); Monocytes # (A) 0.5 k/uL (0-1.0); Monocytes % (A) 2 %; Neutrophils # (A) 20.4 k/uL (1.3-7.7); Neutrophils % (A) 94 %; Platelet Count 180 k/uL (150-450); RDW 16.4 % (11.5-15.5); WBC 21.6 k/uL (3.8-10.6)
[2020-10-16 05:18] LABS: ABG Base Excess 7.2 mmol/L; ABG HCO3 32 mmol/L (21-25); ABG PCO2 51 mmHg (35-45); ABG PH 7.41 (7.35-7.45); ABG PO2 69 mmHg (83-108); ABG TCO2 34 mmol/L (19-24); Allen Test Performed? Yes
[2020-10-16 05:19] LABS: Albumin 2.9 g/dL (3.5-5.0); Calcium 8.1 mg/dL (8.4-10.2); Magnesium 2.2 mg/dL (1.6-2.3); Phosphorus 4.3 mg/dL (2.5-4.5); Potassium 4.4 mmol/L (3.5-5.1); Total Bilirubin 0.6 mg/dL (0.2-1.3); Total Protein 5.3 g/dL (6.3-8.2)
[2020-10-16] MEDS: ACETAMINOPHEN TAB 325 MG TAB PO PRN ×3 (05:22→20:21)
[2020-10-16] MEDS: NOREPINEPHRINE 4 MG in SODIUM CHLORIDE 0.9% 250 ML IV SCH ×2 (07:00→23:05)
[2020-10-16] MEDS: METOPROLOL TARTRATE 50 MG TAB PO SCH ×3 (07:42→19:38)
--- NOTE | 2020-10-16 08:00 | XR ---
EXAMINATION TYPE: XR chest 1V portable DATE OF EXAM: 10/16/2020 COMPARISON: 10/16/2019 HISTORY: Shortness of breath TECHNIQUE: Single frontal view of the chest is obtained. FINDINGS: ET, NG tube, and central line stable. Diffuse interstitial alveolar infiltrate stable. Sma ll bilateral pleural effusions. Heart size stable. Atherosclerotic change aorta. No pneumothorax. IMPRESSION: Diffuse airspace disease stable.
[2020-10-16] MEDS: FAMOTIDINE 20 MG/2 ML VIAL IV SCH ×2 (08:06→20:19)
[2020-10-16] MEDS: FUROSEMIDE 10 MG/ML 4 ML VIAL IV SCH ×2 (08:07→19:39)
[2020-10-16] MEDS: CEFEPIME 2 GM in SODIUM CHLORIDE 0.9% 100 ML IVPB SCH ×2 (08:07→20:19)
[2020-10-16] MEDS: ASCORBIC ACID 500 MG TAB PO SCH (09:09)
[2020-10-16] MEDS: ZINC SULFATE 220 MG CAP PO SCH (09:09)
[2020-10-16] MEDS: CHLORHEXIDINE GLUCONATE 15 ML CUP MUCOUS MEM SCH ×2 (09:09→19:39)
[2020-10-16] MEDS: APIXABAN 5 MG TAB PO SCH ×2 (09:09→19:39)
[2020-10-16] MEDS: CHOLECALCIFEROL 25 MCG (1000 IU) TABLET PO SCH (09:09)
[2020-10-16] MEDS: dexAMETHasone 2 MG TAB PO SCH (09:09)
[2020-10-16] MEDS: DOCUSATE ORAL SOLN 100 MG/10 ML CUP PO SCH ×2 (09:10→19:39)
--- NOTE | 2020-10-16 09:51 | P.PN ---
Subjective Progress Note Date: 10/16/20 On today's evaluation of 10/12/2020 seeing this patient for a follow-up. Is a 60-year-old male patient with COVID 19 pneumonia. Pneumonia and secondary hypoxic respiratory failure. The patient was intubated and placed on a mechanical ventilator. The patient was admitted to the ICU on 10/03/2020 and the patient was extubated on 10/07/2020. Initially the patient was on high flow oxygen which she failed and subsequently his condition progressed and the patient has to be intubated and placed on a mechanical ventilator. The patient has already received 2 units of convalescent plasma, the patient has received Tocilizumab and the patient is currently on steroids. On today's evaluation, the patient is sedated with propofol at 45 mcg/kg per minute and the patient is calm and comfortable successful mechanical ventilator. Propofol is running at 45 mics respiratory per minute. The patient was paralyzed earlier with Nimbex and this was discontinued and he had to be placed back and the patient is currently back on nimbex 1 mcg/kg per minute.. The patient is also intubated on a mechanical ventilator within assist-control at the rate of 30, FiO2 of 60%, PEEP 16 with a tidal volume of 400. Blood gases were noted. The ABG from this morning showed a pH of 7.32 with a pCO2 of 62 and pO2 of 122. The chest x-ray from today is unchanged and the patient has bilateral pulmonary infiltrates more so on the right lower lobe. ET tube is in a good location. As for the blood work, the patient has a white cell count of 23 with a hemoglobin of 12 and a d- dimer of 8.66, BUN is a 50 with a creatinine of 0.9, LDH level is 4302 and a CRP level is at 9.4. The patient is hemodynamically stable on no pressors. Patient was being performed earlier and currently is in a supine body position. The chest x-ray from today showing diffuse breath and pulmonary infiltrates and ET tube is in a good location. The patient is on a enteral feeding with vital high protein at the rate of 40 mL an hour. The neck fluid balance over the past 24 hours is -226 mL and there are no signs of any significant fluid overload. Producing adequate amount of urine output. The cardiac rhythm is A. fib/flutter and the patient is currently on Eliquis. The peak airway pressure is 34 anesthetic pressures around 33. On 10/13/2020 on seeing the patient for a follow-up. The patient remains in intensive care unit. This is a 60-year-old female patient with Covid interrelated pneumonia with hypoxic respiratory failure. The patient has been on a mechanical ventilator since 10/07/2020. The patient currently is on propofol which is running at 60 mcg/kg per minute and the patient is also on paralytics which is running in the form of Nimbex at 1 mcg/kg per minute. Attempts to wean off the Nimbex failed and the patient had to be paralyzed again. Meanwhile, the patient remains on a mechanical ventilator, assist control rate of 30 with an FiO2 of 40% and a PEEP of 16 and a tidal volume of 400. The blood gases from today shows a pH of 7.33 with a pCO2 of 61 and pO2 of 71. The peak airway pressures are 33 and a plateau airway pressure is 31. The chest x-ray from today show an stable bilateral pulmonary infiltrates, with right midlung and left lower lobe pulmonary infiltration and the chest x-ray findings are essentially stable since yesterday without any significant interval change. Her potassium level was at 5.7 and his morning and based on that the patient was given a dose of Kayexalate 30 Repeat potassium is pending for now. Meanwhile, the patient remains hemodynamically stable. The patient is on levo fed, at 0.06 mcg/kg per minute. This should be gradually weaned off today. The patient is on enteral feeding for nutritional support and the patient is on vital high protein at 40 mL an hour. The patient remains in episodes of atrial fibrillation/flutter and this morning is she is on Cardizem at 10 mg an hour and the patient was loaded again with amiodarone and maintained on a infusion of amiodarone at 0.5 she'll be switched back to oral amiodarone today. She remains on Eliquis 5 mg by mouth twice a day. Empiric antibiotic coverage with IV cefepime. She remains on Decadron 6 mg IV every 24 hours. IV fluids with normal saline at the rate of 25 mL an hour. The fluid balance over the past 24 hours has been -49 mL. 10/14/2020, I'm seeing the patient for a follow-up. The patient was intubated and she has been on a mechanical ventilator since 10/07/2020. I'm seeing her today in follow-up. She remains on propofol at 45 mcg/kg per minute and the patient is currently on Nimbex at 1 mcg/kg per minute. She is well sedated and paralyzed. Paralytic Cardizem being given to her daily basis. She failed yesterday and the same of discharge today. She had a mechanical ventilator assist control mode at the rate of 30 with an FiO2 of 40% and a PEEP of 12 with tidal volume of 400. Blood gases from today shows a pH of 7.3388 with a pCO2 of 57 and pO2 of 57. As for the chest x-ray, I do not see any interval change in the patient has diffuse bilateral pulmonary infiltrates. Peak airway pressure is 31 with a static pressure of 26. IV fluids with normal saline at the rate of 25 mL an hour. She is still having issues with atrial fibrillation. She is currently on a combination of Cardizem drip at the rate of 15 mg an hour and amiodarone at 0.5 mg per minute and metoprolol at a dose of 100 mg by mouth 3 times a day. Earlier this morning, the patient was still tachycardic and the patient was being considered for digoxin. Nevertheless, her heart rate currentl y is down at 9365 per minute. Earlier this morning it was in the 130s up to 160 range. Otherwise, the patient is on no pressors since yesterday, the patient's electrolytes today show improvement in her potassium down to 4.7 being given Kayexalate. BUN 65 with a creatinine of 1.1. The LDH level is 3378 which is still elevated although lower compared to yesterday and his CRP level is at 7.7. Serum bicarb is 34.. Calcitonin levels of 0.17 and the patient is currently on empiric antibiotic coverage with cefepime. Urine culture was showing gram- negative bacillus and the final culture are still pending for now. We will cefepime gram-negative bacilli fluid: Balance balance is positive of 1 L over the past 24 hours. 2020, the patient is being seen for a follow-up. He remains intubated on a mechanical ventilator. Currently on propofol running at 50 mcg/kg per minute and the patient wishes currently off Nimbex and the patient was taken off the paralytics yesterday. Meanwhile, the patient remains on a mechanical ventilator on assist control mode and she is on assist-control at the rate of 30 with an FiO2 of 50% and a PEEP currently is at 12 with a tidal volume of 400. The peak and static pressures are lower with a levels of 28 and 19 respectively. The blood gases from today shows a pH of 7.41 with a pCO2 of 53 and pO2 of 77 and the patient's agitation is improved. The chest x-ray from today showing diffuse bilateral pulmonary infiltrates, unchanged with orotracheal tube being in a good location. The patient is being treated with Decadron 6 mg IV every 24 hours. She remains on Eliquis 5 mg by mouth twice a day. She has a d-dimer of 8.7 from today, slightly lower and the rest of the inflammatory markers are still pending for now. Meanwhile, hemodynamically, the patient is stable and she is on no pressors. Her atrial fibrillation/flutter is under much better control. She is currently in a flutter rhythm. Amiodarone is running at 0.5 mg per minute and the patient is also on metoprolol 100 mg by mouth 3 times a day and Cardizem at 15 mg an hour. The plan is to continue these per cardiology. The patient is also on empiric antibiotic coverage with IV cefepime. The pro calcitonin level was 0.17. The patient is afebrile. No respiratory secretions. Cultures of been all negative. I'm inclined to continue the antibiotics as the patient has E. coli in her urine off for 10/12. 10/16/2020, the patient remains on a mechanical ventilator. Unfortunately, she is not doing any much progress. She was taken off the Nimbex and she is still on her lipase for now. She is also on propofol running at 50 mcg/kg per minute. Unfortunately, she was having issues with oxygen desaturation yesterday. I had to make some ventilator changes and currently she is an assist-control mode at a rate of 30 with a FiO2 of 70% and a PEEP of 10 and a tidal volume of 400. The blood gases from this morning showed a pH of 7.4 with a pCO2 of 50 and pO2 of 89. Chest x-ray is unchanged with diffuse bilateral pulmonary infiltrates. She remains on Decadron 6 mg by mouth. She remains also and a A. fib flutter rhythm and after being controlled for a while, the patient went back to become tachycardic again despite being on a combination of metoprolol 100 mg 3 times a day, Cardizem drip and then amiodarone drip. She still has a coagulation with Eliquis. Discussed with cardiology. Not a candidate for cardioversion. IV antibiotics is emphatic and the patient's Prograf level is low at 0.17. She is afebrile. She is on enteral feeding for nutritional support and she is currently on vital high protein at the rate of 40 mL an hour. She has E. coli in the urine. She also had abnormal inflammatory markers with an LDH of 08/11/2001, CRP of 19, and a d-dimer level of 8.4. Around 7:00 this morning, the patient was becoming hypotensive and she was started on low-dose norepinephrine which is running at 5 g per minute. Her net fluid balance is - 2.6 L over the past 24 hours and the patient is receiving Lasix 40 mg IV push every 12 hours. She is also having some diarrhea and she has a fecal management system in place. Stool for C. diff will be checked before the injury. Note that the patient is receiving IV cefepime that was initially emphatic and later on antibiotic was kept on board because of E. coli in the urine. She also has c orynebacterium in the sputum, a colonizer. Objective - Vital Signs Vital signs: Vital Signs Temp 99.7 F H 10/16/20 08:00 Pulse 125 H 10/16/20 09:00 Resp 35 H 10/16/20 09:00 BP 90/52 10/16/20 07:00 Pulse Ox 91 L 10/16/20 09:00 Intake & Output 10/15/20 10/16/20 10/16/20 18:59 06:59 18:59 Intake Total 6438.275 7551 280.054 Output Total 2755 2180 325 Balance -1271.745 -1109 -44.946 Weight 126 kg Intake: IV 276 276 69 0.9 240 240 60 Pressure Bags 36 36 9 Intake, IV Titration 677.255 225 166.054 Amount Amiodarone 450 mg In 240.005 Dextrose 5% in Water 250 ml @ 0.5 MG/MIN 16.667 mls/hr IV .Q15H EILE[facility] Rx#: [id number] Diltiazem 125 mg In 237.25 125 112 Sodium Chloride 0.9% 100 ml @ 15 MG/HR 15 mls/hr IV .Q8H20M EILEEN Rx#: [id number] propofoL 1,000 mg In 200.000 100 54.054 Empty Bag 1 bag @ Titrate IV .Q0M EILEEN Rx#: [id number] Tube Feeding 440 480 40 Other 90 90 5 Output: Urine 2455 2180 325 Stool 300 Other: Voiding Method Indwelling Catheter Indwelling Catheter # Bowel Movements 1 ABP, PAP, CO, CI - Last Documented Arterial Blood Pressure 103/56 - Exam The patient is currently intubated and sedated, mechanically ventilated. Head exam was generally normal. There was no scleral icterus or corneal arcus. Mucous membranes were moist. HEENT examination is grossly unremarkable. Oral endotracheal tube is noted. Neck supple. Full range of motion. No adenopathy thyromegaly or neck vein dis tention. A left internal jugular triple-lumen catheter is noted. Cardiovascular examination reveals an irregular rhythm and rate. Irregular S1- S2 and consistent with atrial fibrillation/flutter. No S3 or S4. No discernible murmur noted. The rate is under better control with atrial fibrillation for now. Lungs reveal coarse bilateral rhonchi and crackles. Breath sounds equal. No wheezes. Breath sounds are bit worse today. Exam is essentially unchanged. Abdomen soft bowel sounds are heard. No masses or tenderness. Extremities are intact. No cyanosis clubbing or edema. Skin is without rash or lesion. Neurologic examination is nonfocal. Unable to do a complete sedation holiday as the patient becomes quite asynchronous and she develops abdominal breathing and a synchrony with the mechanical ventilator once she goes down to 30 mics of from before. Overall examination remains nonfocal. - Labs CBC & Chem 7: 10/16/20 04:15 10/16/20 04:15 Labs: Abnormal Lab Results - Last 24 Hours (Table) 10/15/20 10/15/20 10/15/20 Range/Units 05:00 05:00 09:05 WBC (3.8-10.6) k/uL RBC (3.80-5.40) m/uL Hgb (11.4-16.0) gm/dL Hct (34.0-46.0) % RDW (11.5-15.5) % Neutrophils # (1.3-7.7) k/uL Lymphocytes # (1.0-4.8) k/uL D-Dimer 8.36 H (<0.60) mg/L FEU ABG pCO2 (35-45) mmHg ABG pO2 (83-108) mmHg ABG HCO3 (21-25) mmol/L ABG Total CO2 (19-24) mmol/L ABG O2 Saturation (94-97) % Carbon Dioxide (22-30) mmol/L BUN (7-17) mg/dL Glucose (74-99) mg/dL Calcium (8.4-10.2) mg/dL Ferritin 712.4 H (10.0-291.0) ng/mL AST (14-36) U/L ALT (4-34) U/L Lactate Dehydrogenase 1161 H (120-246) U/L C-Reactive Protein (<10.0) mg/L Total Protein (6.3-8.2) g/dL Albumin (3.5-5.0) g/dL Triglycerides 300.0 H (0.0-149.0) mg/dL 10/15/20 10/16/20 10/16/20 Range/Units 18:33 04:15 04:15 WBC 21.6 H (3.8-10.6) k/uL RBC 3.70 L (3.80-5.40) m/uL Hgb 11.2 L (11.4-16.0) gm/dL Hct 32.5 L (34.0-46.0) % RDW 16.4 H (11.5-15.5) % Neutrophils # 20.4 H (1.3-7.7) k/uL Lymphocytes # 0.6 L (1.0-4.8) k/uL D-Dimer (<0.60) mg/L FEU ABG pCO2 48 H (35-45) mmHg ABG pO2 54 L* (83-108) mmHg ABG HCO3 32 H (21-25) mmol/L ABG Total CO2 33 H (19-24) mmol/L ABG O2 Saturation 88.6 L (94-97) % Carbon Dioxide 32 H (22-30) mmol/L BUN 66 H (7-17) mg/dL Glucose 125 H (74-99) mg/dL Calcium 8.1 L (8.4-10.2) mg/dL Ferritin (10.0-291.0) ng/mL AST 47 H (14-36) U/L ALT 119 H (4-34) U/L Lactate Dehydrogenase 2902 H (120-246) U/L C-Reactive Protein 19.0 H (<10.0) mg/L Total Protein 5.3 L (6.3-8.2) g/dL Albumin 2.9 L (3.5-5.0) g/dL Triglycerides (0.0-149.0) mg/dL 10/16/20 10/16/20 Range/Units 04:15 05:13 WBC (3.8-10.6) k/uL RBC (3.80-5.40) m/uL Hgb (11.4-16.0) gm/dL Hct (34.0-46.0) % RDW (11.5-15.5) % Neutrophils # (1.3-7.7) k/uL Lymphocytes # (1.0-4.8) k/uL D-Dimer 8.42 H (<0.60) mg/L FEU ABG pCO2 51 H (35-45) mmHg ABG pO2 69 L (83-108) mmHg ABG HCO3 32 H (21-25) mmol/L ABG Total CO2 34 H (19-24) mmol/L ABG O2 Saturation (94-97) % Carbon Dioxide (22-30) mmol/L BUN (7-17) mg/dL Glucose (74-99) mg/dL Calcium (8.4-10.2) mg/dL Ferritin (10.0-291.0) ng/mL AST (14-36) U/L ALT (4-34) U/L Lactate Dehydrogenase (120-246) U/L C-Reactive Protein (<10.0) mg/L Total Protein (6.3-8.2) g/dL Albumin (3.5-5.0) g/dL Triglycerides (0.0-149.0) mg/dL Microbiology - Last 24 Hours (Table) 10/12/20 15:24 Blood Culture - Preliminary Blood No Growth after 72 hours 10/13/20 12:47 Gram Stain - Final Sputum Sputum Culture - Final Corynebacterium striatum Assessment and Plan Plan: #1. ARDS/Acute hypoxic respiratory failure secondary to acute COVID 19 related pneumonitis, status post Tocilizumab and 1 unit of convalescent plasma on 08/2020, admitted to the ICU on 10/03/2020, intubated for worsening respiratory failure on 10/07/2020. The patient remains on Decadron 6 mg po every 24 hours. The patient is on Eliquis for anticoagulation especially with her underlying atrial fibrillation/flutter. Chest x-ray findings are stable. She is currently on a PEEP of 10 with an FiO2 of 70%. Blood gases was noted. Chest x-ray was no hank. There were pressures remain elevated although somewhat improved over the past few days. #2 History of paroxysmal atrial fibrillation, currently on a Cardizem drip at 15 mg an hour and amiodarone drip at 0.5 mg per minute. The patient is also on Eliquis for anticoagulation. The patient is also on metoprolol at a dose of 100 mg by mouth twice a day. #3. Hypotension, she is currently off norepinephrine . The patient has a normal ejection fraction of 55-60%. Note that the patient is also being diuresis with Lasix 40 mg every 12 hours and she is currently in a negative fluid balance. #4. Increased d-dimer, related to acute COVID 19, d-dimer from today's at 9.6 #5. Increased transaminases related to acute viral pneumonia. Ultrasound abdomen was completed showing multiple gallbladder stones, however total bilirubin level is normal at 0.5 #6 mild leukocytosis, and the patient remains on IV cefepime for broad-spectrum antibiotic coverage. Note that the patient's leukocytosis improving. The patient was found to have E. coli in the urine or patient is on cefepime. Pro-c alcitonin level was minimally elevated at 0.17. We are going to continue to follow 5 day course of cefepime. Note that the patient has already received Actemra #7 enteral feeding for nutritional support #8 E. coli in the urine/UTI. #9 diarrhea, consider C. diff colitis. Plan: Continue ventilator support PEEP down to 10, Fio2 70% Keep sedation with propofol give the patient a sedation holiday Continue Decadron 6 mg po every 24 hours Continue Eliquis for anticoagulation Continue enteral feeding for nutritional support, at oral Colace for bowel motility and bowel movements Monitor inflammatory markers, d-dimer was elevated LDH is also elevated Cardiac rhythm is currently A. fib/flutter and the patient is on amiodarone and metoprolol combination, and the patient is on a Cardizem drip at 15 mg an hour and amiodarone at 0.5 mg per minute. The patient is still on metoprolol 100 mg by mouth TID. The patient is on anticoagulation with Eliquis. Lasix 40 mg every 12 hours Levo fed for hemodynamic support and blood pressure support currently running at 5 mg per minute Treated total of 5 day course of IV cefepime regarding E. coli in the urine Stool for C. diff We'll continue to follow. Condition is critical Physical care evaluation that was on a more than 30 minutes Time with Patient: Greater than 30
--- NOTE | 2020-10-16 10:16 | PN ---
PROGRESS NOTE Mrs. Olmedo is a 60-year-old female who presented with respiratory failure related to COVID-19 pneumonia. She remains intubated. She has had more difficulty with her breathing status during the night and her ( ) response is fast at this morning. She is more hypotensive. She is requiring adjustment in her ventilation and oxygen supply. She continues to be on IV amiodarone and IV Cardizem in addition to metoprolol tartrate. She is afebrile again this morning. Her heart rate is up to 140s. Her temperature is up to 100.6. Blood pressure is running in the 70s to 90s. No physical examination was performed. Her hemoglobin is 11.2, white blood cell 21.6, BUN and creatinine 66 and 1.02, potassium 4.4. Her C-reactive protein is up to 19. Her LDH is 2903, which has gone up. IMPRESSION: 1. Respiratory failure with COVID-19 pneumonia. No evidence of improvement in her respiratory status. 2. Atrial fibrillation with rapid ventricular response, appears to be worse with the worsening of her pulmonary status. 3. Hypotension worsening with the tachycardia. 4. Abnormal liver function tests and worsening related to the infectious process. RECOMMENDATION: Unfortunately, prognosis is quite guarded at this time. She will be evaluated by Dr. Shields regarding her pulmonary status. At this time I will continue present therapy. She will be restarted on norepinephrine. The likelihood of restoring sinus mechanism by cardioversion and maintaining sinus mechanism is quite low because of her severe lung status. Will await the input of Dr. Shields. MMODL / IJN: [id number] /
[2020-10-16 10:44] LABS: ABG Base Excess 7.5 mmol/L; ABG HCO3 31 mmol/L (21-25); ABG Oxygen Saturation 90.2 % (94-97); ABG PCO2 43 mmHg (35-45); ABG PH 7.47 (7.35-7.45); ABG TCO2 33 mmol/L (19-24)
[2020-10-16 10:46] LABS: ABG PO2 55 mmHg (83-108); Allen Test Performed? no
--- NOTE | 2020-10-16 15:34 | CDI ---
Documentation Clarification Form Date: 10/15/2020 04:11:00 PM From: Jolene Galindo RN, CCDS Admit Date: 10/02/2020 04:21:00 PM Patient Name: Noy Olmedo Visit Number: [id number] Discharge Date: ATTENTION: The Clinical Documentation Specialists (CDI) and [facility] Coding Staff appreciate your assistance in clarifying documentation. Please respond to the clarification below the line at the bottom and electronically sign. The CDI & [facility] Coding staff will review the response and follow-up if needed. Please note: Queries are made part of the Legal Health Record. If you have any questions, please contact the author of this message via ITS. Dr. Red Michelle. Suspect secondary bacterial infection in documented in the progress starting on 10/12. Please provide further specificity to clarify if you are treating sepsis and the type of bacterial infection 10/15 progress notes: Acute UTI with cystitis from E. colii History/Risk Factors: COVID19, Pneumonia, Atrial Fibrillation, Clinical Indicators: [id number] present to ED on 10/02 with complaint of increasing shortness of breath with known history of Covid-19 diagnosed on 09/25 per scanned lab report. 10/13 WBC: increased to 31.1 she has E.coli in the urine. She also has corynebacteriium in the sputum, a colonizer per pulmonary progress notes on 10/16/20. She is intubated, sedated, mechanically ventilated. Nursing reports diarrhea and stool specimen is pending. 10.12 Blood cultures: pending, no growth after 72 hours 10/13 at 08:00 vital signs: 101/62 165 30 100.6 91 % Mechanical ventilation FIO2 40 Treatment: ICU/Telemetry monitoring Monitor VS per protocol Maxipime 2 GM IVPB Q 12HR Levophed IV @ 9.601 MLS/HR In your professional opinion, please further clarify Septic, and is it one of the following conditions: [ ] Severe Sepsis with organ failure (specify cause and organism [ ] Septic Shock (specify cause and organism) [ ] Other, please specify [ ] Unable to determine SIRS Criteria: 2 or more of the following may indicate SIRS -Temperature < 96.8F (36C) or > 101.0F (38.3C) -Heart Rate > 90 bpm -Respiratory Rate > 20 breaths/min or PaCO2 < 32 mmHg -White Blood Cell Count > 12,000 or < 4,000 cells/mm3 or > 10% bands __ Septic shock from COVID 19, and UTI from E. coli (Template Last Reviewed: August 2020) MTDD
[2020-10-16 16:29] LABS: Ferritin 771.1 ng/mL (10.0-291.0)
[2020-10-16] MEDS: AMIODARONE 450 MG in DEXTROSE 5% IN WATER 250 ML IV SCH ×2 (16:45)
--- NOTE | 2020-10-16 19:14 | P.PN ---
Progress Note - Text Progress Note Date: 10/16/20 Presenting complaint Shortness of breath History of presenting complaint Patient is a 60-year-old female, follows with Dr. Herberth Hurd, with no known past medical history who presented to the ER secondary to shortness of breath and cough. She was diagnosed with COVID 19 on 09/23/20. In the ER she was saturating 85% on room air and was found to be in A. fib with RVR and heart rates 120 to 130. Initial labs showed d-dimer of 1.77, lymphocytes 0.5, sodium 132, carbon dioxide 19, BUN 25, AST 122, ALT 47, LDH 2894, and CRP to exceed 8.2. She was admitted and was started on Decadron. She was outside of the window for Remdesivir. She was started on a Cardizem drip as well as metoprolol orally for her A. fib. She was also started on a heparin drip. She's given fluids for her hyponatremia. Pulmonary was consulted. She was requiring a nonrebreather on admission and overnight on 10/03 she was requiring maximal therapy through an air follow along with her nonrebreather to maintain low normal O2 sats. She converted to normal sinus rhythm and her Cardizem drip was stopped. Cardiology was consulted for her A. fib. She was subsequently transferred to the ICU. She had reported some leg pain and venous Dopplers were negative in bilateral lower extremities heparin drip was stopped and she had converted to normal sinus mechanism and she was subsequently started on prophylactic Lovenox. Echocardiogram showed ejection fraction 55-60% with moderate LVH. She was unable to tolerated AIRVO and was started on BiPap. Patient opted to change her CODE STATUS to DO NOT INTUBATE (October 08 patient respiratory status declined. Patient's sister obtained an emergency guardianship through the court and after she discussed with Dr. Park he decided to intubate the patient. This morning patient is on propofol and Nimbex. But the FiO2 60 the PEEP 16. I did get a call from the nurse and also from the social economist for request for transfer to it was to [place] per sister and switchgear repairer Dr. Park for ECMO. I did speak to the admitting office of the day switchgear repairer , home with home I discussed the case at length. He said that the patient was not a candidate for transfer and can be managed here. I did give him Dr. Park's cell number for further conversation regarding his advice for management here.) Patient's again had an episode of paroxysmal atrial fibrillation Today ICU: Ventilator: FiO2 50 and a PEEP of 10. 2 feeding at 40 mL. Remains in atrial fibrillation flutter uncontrolled. Drips include propofol, Cardizem drip, IV amiodarone drip. Patient started having liquid stools last night. Has a fecal management system in place Review of systems: Patient intubated Active Medications Acetaminophen (Acetaminophen Tab 325 Mg Tab) 650 mg PO Q6HR PRN PRN Reason: Mild Pain or Fever > 100.5 Last Admin: 10/16/20 13:14 Dose: 650 mg Documented by: Albuterol Sulfate (Albuterol Hfa Inhaler) 2 puff INHALATION RT-Q4H [facility] Last Admin: 10/16/20 17:18 Dose: 2 puff Documented by: Albuterol Sulfate (Albuterol Hfa Inhaler) 2 puff INHALATION RT-QID PRN PRN Reason: Shortness Of Breath Or Wheezing Apixaban (Apixaban 5 Mg Tab) 5 mg PO BID [facility] Last Admin: 10/16/20 09:09 Dose: 5 mg Documented by: Artificial Tears (Artificial Tears-Hypromellose Drops 15 Ml Btl) 2 drops BOTH EYES Q4H [facility] Last Admin: 10/16/20 16:19 Dose: 2 drops Documented by: Ascorbic Acid (Ascorbic Acid 500 Mg Tab) 1,000 mg PO DAILY [facility] Last Admin: 10/16/20 09:09 Dose: 1,000 mg Documented by: Chlorhexidine Gluconate (Chlorhexidine Gluconate 15 Ml Cup) 15 ml MUCOUS MEM BID [facility] Last Admin: 10/16/20 09:09 Dose: 15 ml Documented by: Cholecalciferol (Cholecalciferol 25 Mcg (1000 Iu) Tablet) 100 mcg PO DAILY [facility] Last Admin: 10/16/20 09:09 Dose: 100 mcg Documented by: Dexamethasone (Dexamethasone 2 Mg Tab) 6 mg PO DAILY [facility] Last Admin: 10/16/20 09:09 Dose: 6 mg Documented by: Docusate Sodium (Docusate Oral Soln 100 Mg/10 Ml Cup) 100 mg PO BID [facility] Last Admin: 10/16/20 09:10 Dose: Not Given Documented by: Famotidine (Famotidine 20 Mg/2 Ml Vial) 20 mg IV BID [facility] Last Admin: 10/16/20 08:06 Dose: 20 mg Documented by: Furosemide (Furosemide 10 Mg/Ml 4 Ml Vial) 40 mg IV Q12HR [facility] Last Admin: 10/16/20 08:07 Dose: 40 mg Documented by: Propofol 1,000 mg/ IV Solution 100 mls @ 0 mls/hr IV .Q0M [facility]; Protocol Last Admin: 10/16/20 18:19 Dose: 50 mcg/kg/min, 37.8 mls/hr Documented by: Amiodarone HCl 450 mg/ (Dextrose/Water) 250 mls @ 16.667 mls/hr IV .Q15H [facility]; Protocol Last Admin: 10/16/20 16:45 Dose: 0.5 mg/min, 16.667 mls/hr Documented by: Cefepime HCl 2 gm/ Sodium (Chloride) 100 mls @ 25 mls/hr IVPB Q12HR [facility] Last Admin: 10/16/20 08:07 Dose: 25 mls/hr Documented by: Diltiazem HCl 125 mg/ Sodium (Chloride) 125 mls @ 15 mls/hr IV .Q8H20M [facility] Last Admin: 10/16/20 16:45 Dose: 15 mg/hr, 15 mls/hr Documented by: Sodium Chloride (Saline 0.9%) 500 mls @ 20 mls/hr IV .Q24H [facility] Last Admin: 10/15/20 19:35 Dose: Not Given Documented by: Norepinephrine Bitartrate 4 mg (/ Sodium Chloride) 254 mls @ 24.003 mls/hr IV .[id number] [facility]; Protocol Last Titration: 10/16/20 17:01 Dose: 0.05 mcg/kg/min, 24.003 mls/hr Documented by: Metoprolol Tartrate (Metoprolol Tartrate 50 Mg Tab) 100 mg PO TID [facility] Last Admin: 10/16/20 15:08 Dose: 100 mg Documented by: Morphine Sulfate (Morphine Sulfate 2 Mg/Ml Syringe) 2 mg IVP Q4H PRN PRN Reason: anxiety Last Admin: 10/13/20 11:38 Dose: 2 mg Documented by: Zinc Sulfate (Zinc Sulfate 220 Mg Cap) 220 mg PO DAILY [facility] Last Admin: 10/16/20 09:09 Dose: 220 mg Documented by: On examination: VITAL SIGNS: 105, 35, 106/64, 93% in the ventilator at 50% GENERAL APPEARANCE: Sedated, intubated , RESPIRATORY: Respiratory effort increased. Accessory muscles working Rest of the exam per pulmonary and nursing Investigations: October 16: WBC 21.6 hemoglobin 11.2 platelets 480 potassium 4.4 creatinine 1.02 d-dimer 8.4 to CRP 19 alk phos 53 LDH 08/11/2001 October 15: WBC 21.8 hemoglobin 10.7 platelets 197 d-dimer 8.7 potassium 4.3 creatinine 1.05. Chest x-ray: Bilateral infiltrates October 14: WBC 26.5 hemoglobin 10.6 platelets 178 d-dimer 9.63 ABG with a pH of 7.38 pCO2 57 pO2 of 57 potassium 4.5 bun 65 creatinine 1.12 LDH 3 mL 78 pro-calc itonin 0.17 October 06: WBC 7.4 hemoglobin 13.2 platelets 238 d-dimer 22.8 potassium 5.3 creatinine 0.8 CRP 25.1 Abdominal ultrasound limited: Very limited exam. Possible gallstones. October 05: WBC 5.3 hemoglobin 12.9 platelets 260 d-dimer 3.65 potassium 4.9 creatinine 0.81 CRP 45.6 Chest x-ray film personally reviewed by me-[October 05]: Bilateral infiltrates more so in the lower zone Lower extremity Doppler ultrasound: Negative for DVT 2-D echocardiogram: Concentric LVH, EF 55-60% Admission labs: D-dimer 1.77 CRP 68.2 Sputum: Corynebacterium stratum Urine culture: E. coli Assessment and plan: COVID 19 pneumonia with acute hypoxic respiratory failure,-not improving -Continue with Decadron, Zinc, vitamin C, vitamin D, IV heparin changed to eliquis [ Convolescent Plasma 10/03, Toci X 1 on 10/03 ] Septic. Suspect secondary bacterial not improving IV cefepime -Septic and cardiogenic shock Acute hypoxic respiratory failure secondary to COVID 19 pneumonia,-not improving. Remains on ventilator support, FiO2 50 % Paroxysmal atrial fibrillation, repeated episodes of rapid ventricular rate- currently sinus rhythm. Back into atrial fibrillation-rate remains uncontrolled eliquis. Currently IV Cardizem and IV amiodarone Transaminitis likely secondary to illness -Follow liver enzymes. ultrasound: Poor quality. -Gallstones, asymptomatic Hyponatremia secondary decreased solute intake in addition to water. -Corrected -Morbid obesity with BMI 41 outpatient weight loss -Hyperkalemia Corrected -Acute UTI with cystitis from E. coli On IV cefepime -Legal guardian: Krista patient's sister Patient's prognosis remains poor. Patient remains on supportive drip. Remains A. fib uncontrolled. Febrile. IV cefepime. Prognosis not good
[2020-10-16] MEDS: SODIUM CHLORIDE 0.9% 500 ML 500 ML IV SCH (19:38)
[2020-10-17] MEDS: ARTIFICIAL TEARS-HYPROMELLOSE DROPS 15 ML BTL BOTH EYES SCH ×7 (01:16→23:32)
[2020-10-17] MEDS: VANCOMYCIN ORAL SOLUTION 250 MG/5 ML BOTTLE PO SCH ×5 (01:16→23:51)
[2020-10-17] MEDS: DILTIAZEM 125 MG in SODIUM CHLORIDE 0.9% 100 ML IV SCH ×5 (01:17→23:32)
[2020-10-17] MEDS: ALBUTEROL HFA INHALER INHALATION SCH ×5 (03:56→19:30)
[2020-10-17 04:35] LABS: Anisocytosis Slight; Basophils % (A) 0 %; Eosinophils # (A) 0.1 k/uL (0-0.7); Eosinophils % (A) 0 %; HGB 11.9 gm/dL (11.4-16.0); Lymphocytes # (A) 0.8 k/uL (1.0-4.8); Lymphocytes % (A) 3 %; MCH 28.5 pg (25.0-35.0); MCHC 32.1 g/dL (31.0-37.0); MCV 88.7 fL (80.0-100.0); Mean Platelet Volume 8.3; Monocytes # (A) 0.9 k/uL (0-1.0); Monocytes % (A) 3 %; Neutrophils # (A) 27.4 k/uL (1.3-7.7); Neutrophils % (A) 93 %; Platelet Count 242 k/uL (150-450); RBC 4.17 m/uL (3.80-5.40); RDW 16.8 % (11.5-15.5); WBC 29.4 k/uL (3.8-10.6)
[2020-10-17 04:53] LABS: Albumin 2.9 g/dL (3.5-5.0); C Reactive Protein 4.2 mg/dL (<1.0); Magnesium 2.1 mg/dL (1.6-2.3); Phosphorus 4.1 mg/dL (2.5-4.5); Potassium 4.4 mmol/L (3.5-5.1); Total Bilirubin 0.6 mg/dL (0.2-1.3); Total Protein 5.5 g/dL (6.3-8.2)
[2020-10-17 05:10] LABS: ABG Base Excess 3.9 mmol/L; ABG HCO3 28 mmol/L (21-25); ABG Oxygen Saturation 92.2 % (94-97); ABG PCO2 43 mmHg (35-45); ABG PH 7.43 (7.35-7.45); ABG PO2 63 mmHg (83-108); ABG TCO2 30 mmol/L (19-24)
[2020-10-17] MEDS: ACETAMINOPHEN TAB 325 MG TAB PO PRN (05:31)
[2020-10-17 05:38] LABS: Allen Test Performed? no
[2020-10-17] MEDS: NOREPINEPHRINE 4 MG in SODIUM CHLORIDE 0.9% 250 ML IV SCH ×2 (06:20→12:30)
[2020-10-17] MEDS: AMIODARONE 450 MG in DEXTROSE 5% IN WATER 250 ML IV SCH ×6 (06:20→23:32)
[2020-10-17] MEDS: METOPROLOL TARTRATE 50 MG TAB PO SCH ×4 (06:26→21:14)
--- NOTE | 2020-10-17 08:35 | P.PN ---
Subjective Progress Note Date: 10/17/20 On today's evaluation of 10/12/2020 seeing this patient for a follow-up. Is a 60-year-old male patient with COVID 19 pneumonia. Pneumonia and secondary hypoxic respiratory failure. The patient was intubated and placed on a mechanical ventilator. The patient was admitted to the ICU on 10/03/2020 and the patient was extubated on 10/07/2020. Initially the patient was on high flow oxygen which she failed and subsequently his condition progressed and the patient has to be intubated and placed on a mechanical ventilator. The patient has already received 2 units of convalescent plasma, the patient has received Tocilizumab and the patient is currently on steroids. On today's evaluation, the patient is sedated with propofol at 45 mcg/kg per minute and the patient is calm and comfortable successful mechanical ventilator. Propofol is running at 45 mics respiratory per minute. The patient was paralyzed earlier with Nimbex and this was discontinued and he had to be placed back and the patient is currently back on nimbex 1 mcg/kg per minute.. The patient is also intubated on a mechanical ventilator within assist-control at the rate of 30, FiO2 of 60%, PEEP 16 with a tidal volume of 400. Blood gases were noted. The ABG from this morning showed a pH of 7.32 with a pCO2 of 62 and pO2 of 122. The chest x-ray from today is unchanged and the patient has bilateral pulmonary infiltrates more so on the right lower lobe. ET tube is in a good location. As for the blood work, the patient has a white cell count of 23 with a hemoglobin of 12 and a d- dimer of 8.66, BUN is a 50 with a creatinine of 0.9, LDH level is 4302 and a CRP level is at 9.4. The patient is hemodynamically stable on no pressors. Patient was being performed earlier and currently is in a supine body position. The chest x-ray from today showing diffuse breath and pulmonary infiltrates and ET tube is in a good location. The patient is on a enteral feeding with vital high protein at the rate of 40 mL an hour. The neck fluid balance over the past 24 hours is -226 mL and there are no signs of any significant fluid overload. Producing adequate amount of urine output. The cardiac rhythm is A. fib/flutter and the patient is currently on Eliquis. The peak airway pressure is 34 anesthetic pressures around 33. On 10/13/2020 on seeing the patient for a follow-up. The patient remains in intensive care unit. This is a 60-year-old female patient with Covid interrelated pneumonia with hypoxic respiratory failure. The patient has been on a mechanical ventilator since 10/07/2020. The patient currently is on propofol which is running at 60 mcg/kg per minute and the patient is also on paralytics which is running in the form of Nimbex at 1 mcg/kg per minute. Attempts to wean off the Nimbex failed and the patient had to be paralyzed again. Meanwhile, the patient remains on a mechanical ventilator, assist control rate of 30 with an FiO2 of 40% and a PEEP of 16 and a tidal volume of 400. The blood gases from today shows a pH of 7.33 with a pCO2 of 61 and pO2 of 71. The peak airway pressures are 33 and a plateau airway pressure is 31. The chest x-ray from today show an stable bilateral pulmonary infiltrates, with right midlung and left lower lobe pulmonary infiltration and the chest x-ray findings are essentially stable since yesterday without any significant interval change. Her potassium level was at 5.7 and his morning and based on that the patient was given a dose of Kayexalate 30 Repeat potassium is pending for now. Meanwhile, the patient remains hemodynamically stable. The patient is on levo fed, at 0.06 mcg/kg per minute. This should be gradually weaned off today. The patient is on enteral feeding for nutritional support and the patient is on vital high protein at 40 mL an hour. The patient remains in episodes of atrial fibrillation/flutter and this morning is she is on Cardizem at 10 mg an hour and the patient was loaded again with amiodarone and maintained on a infusion of amiodarone at 0.5 she'll be switched back to oral amiodarone today. She remains on Eliquis 5 mg by mouth twice a day. Empiric antibiotic coverage with IV cefepime. She remains on Decadron 6 mg IV every 24 hours. IV fluids with normal saline at the rate of 25 mL an hour. The fluid balance over the past 24 hours has been -49 mL. 10/14/2020, I'm seeing the patient for a follow-up. The patient was intubated and she has been on a mechanical ventilator since 10/07/2020. I'm seeing her today in follow-up. She remains on propofol at 45 mcg/kg per minute and the patient is currently on Nimbex at 1 mcg/kg per minute. She is well sedated and paralyzed. Paralytic Cardizem being given to her daily basis. She failed yesterday and the same of discharge today. She had a mechanical ventilator assist control mode at the rate of 30 with an FiO2 of 40% and a PEEP of 12 with tidal volume of 400. Blood gases from today shows a pH of 7.3388 with a pCO2 of 57 and pO2 of 57. As for the chest x-ray, I do not see any interval change in the patient has diffuse bilateral pulmonary infiltrates. Peak airway pressure is 31 with a static pressure of 26. IV fluids with normal saline at the rate of 25 mL an hour. She is still having issues with atrial fibrillation. She is currently on a combination of Cardizem drip at the rate of 15 mg an hour and amiodarone at 0.5 mg per minute and metoprolol at a dose of 100 mg by mouth 3 times a day. Earlier this morning, the patient was still tachycardic and the patient was being considered for digoxin. Nevertheless, her heart rate currentl y is down at 9365 per minute. Earlier this morning it was in the 130s up to 160 range. Otherwise, the patient is on no pressors since yesterday, the patient's electrolytes today show improvement in her potassium down to 4.7 being given Kayexalate. BUN 65 with a creatinine of 1.1. The LDH level is 3378 which is still elevated although lower compared to yesterday and his CRP level is at 7.7. Serum bicarb is 34.. Calcitonin levels of 0.17 and the patient is currently on empiric antibiotic coverage with cefepime. Urine culture was showing gram- negative bacillus and the final culture are still pending for now. We will cefepime gram-negative bacilli fluid: Balance balance is positive of 1 L over the past 24 hours. 2020, the patient is being seen for a follow-up. He remains intubated on a mechanical ventilator. Currently on propofol running at 50 mcg/kg per minute and the patient wishes currently off Nimbex and the patient was taken off the paralytics yesterday. Meanwhile, the patient remains on a mechanical ventilator on assist control mode and she is on assist-control at the rate of 30 with an FiO2 of 50% and a PEEP currently is at 12 with a tidal volume of 400. The peak and static pressures are lower with a levels of 28 and 19 respectively. The blood gases from today shows a pH of 7.41 with a pCO2 of 53 and pO2 of 77 and the patient's agitation is improved. The chest x-ray from today showing diffuse bilateral pulmonary infiltrates, unchanged with orotracheal tube being in a good location. The patient is being treated with Decadron 6 mg IV every 24 hours. She remains on Eliquis 5 mg by mouth twice a day. She has a d-dimer of 8.7 from today, slightly lower and the rest of the inflammatory markers are still pending for now. Meanwhile, hemodynamically, the patient is stable and she is on no pressors. Her atrial fibrillation/flutter is under much better control. She is currently in a flutter rhythm. Amiodarone is running at 0.5 mg per minute and the patient is also on metoprolol 100 mg by mouth 3 times a day and Cardizem at 15 mg an hour. The plan is to continue these per cardiology. The patient is also on empiric antibiotic coverage with IV cefepime. The pro calcitonin level was 0.17. The patient is afebrile. No respiratory secretions. Cultures of been all negative. I'm inclined to continue the antibiotics as the patient has E. coli in her urine off for 10/12. 10/16/2020, the patient remains on a mechanical ventilator. Unfortunately, she is not doing any much progress. She was taken off the Nimbex and she is still on her lipase for now. She is also on propofol running at 50 mcg/kg per minute. Unfortunately, she was having issues with oxygen desaturation yesterday. I had to make some ventilator changes and currently she is an assist-control mode at a rate of 30 with a FiO2 of 70% and a PEEP of 10 and a tidal volume of 400. The blood gases from this morning showed a pH of 7.4 with a pCO2 of 50 and pO2 of 89. Chest x-ray is unchanged with diffuse bilateral pulmonary infiltrates. She remains on Decadron 6 mg by mouth. She remains also and a A. fib flutter rhythm and after being controlled for a while, the patient went back to become tachycardic again despite being on a combination of metoprolol 100 mg 3 times a day, Cardizem drip and then amiodarone drip. She still has a coagulation with Eliquis. Discussed with cardiology. Not a candidate for cardioversion. IV antibiotics is emphatic and the patient's Prograf level is low at 0.17. She is afebrile. She is on enteral feeding for nutritional support and she is currently on vital high protein at the rate of 40 mL an hour. She has E. coli in the urine. She also had abnormal inflammatory markers with an LDH of 08/11/2001, CRP of 19, and a d-dimer level of 8.4. Around 7:00 this morning, the patient was becoming hypotensive and she was started on low-dose norepinephrine which is running at 5 g per minute. Her net fluid balance is - 2.6 L over the past 24 hours and the patient is receiving Lasix 40 mg IV push every 12 hours. She is also having some diarrhea and she has a fecal management system in place. Stool for C. diff will be checked before the injury. Note that the patient is receiving IV cefepime that was initially emphatic and later on antibiotic was kept on board because of E. coli in the urine. She also has c orynebacterium in the sputum, a colonizer. 17 2020, the patient is being seen for a follow-up. She is on propofol and she remains off Nimbex. Propofol is running at 50 mcg/kg per minute. She is also on assist control mode of ventilation on a rate of 24, tidal volume of 450, FiO2 of 50% and a PEEP of 10. Peak airway pressure is 31. Static pressure is 28. Blood gases showed a pH of 7.43 with a pCO2 of 43 and pO2 of 63. She is breathing comfortably on a mechanical ventilator. The chest x-ray from today is showing some limited infiltration in lung bases left more than right. Orotrache al tube is in a good location. Comparing chest x-rays, she has marked improvement in the infiltration is noted on the right compared to the earlier chest x-ray from yesterday. Left side remains essentially unchanged. She is off paralytics. She remains in atrial fibrillation. Rate has been fluctuating. After being tachycardic for it some time, she improved and currently she is back having some ongoing tachycardia. Her heart rate Cardizem 150. The patient remains on amiodarone drip at 0.5 mg per minute that she is also on Cardizem drip at 15 mg an hour. The patient is also on Eliquis for long-term and coagulation regarding the ongoing atrial fibrillation. She remains on metoprolol 100 mg by mouth 3 times a day for rate control. Note that the patient had become also hypotensive and the patient was started on norepinephrine infusion at the low-dose of 0.02 mics per kilogram per minute is being gradually weaned off. She is receiving enteral feeding for nutritional support with vital high protein at the rate of 40 mL an hour. For that overall fluid balance over the past 24 hours has been -2.1 L. The patient remains on Lasix 40 mg of push every 12 hours. She was having liquidy stool/bowel movements and the patient was further testing and she checked positive for C. diff and the patient was started on oral vancomycin. Note that her antibiotic coverage was with IV cefepime and this was essentially an empiric antibiotic coverage. Was found to have gram-negative UTI with Ecoli and the plan was to continue the antibiotics for a total of 5 days. The pro calcitonin level from 10/14/2020 WAS 0.17. FOR THE CORYNEBACTERIUM, IN THE SPUTUM, THIS IS LIKELY A COLONIZER. Objective - Vital Signs Vital signs: Vital Signs Temp 101.7 F H 10/17/20 04:00 Pulse 111 H 10/17/20 07:00 Resp 37 H 10/17/20 07:00 BP 85/64 10/17/20 07:00 Pulse Ox 92 L 10/17/20 07:00 Intake & Output 10/16/20 10/17/20 10/17/20 18:59 06:59 18:59 Intake Total 4095.061 3568.663 Output Total 1925 1855 Balance -691.564 -308.337 Weight 126 kg 128.8 kg Intake: IV 276 299 0.9 Normal Saline @ KVO 240 260 0.9 Normal Saline 36 39 Pressure Bags Intake, IV Titration 656.436 771.663 Amount Diltiazem 125 mg In 235 177.5 Sodium Chloride 0.9% 100 ml @ 15 MG/HR 15 mls/hr IV .[id number] EILEEN Rx#: [id number] Norepinephrine 4 mg In 167.382 294.163 Sodium Chloride 0.9% 250 ml @ 0.05 MCG/KG/MIN 24. 003 mls/hr IV .[id number] EILEEN Rx#:[id number] propofoL 1,000 mg In 254.054 300 Empty Bag 1 bag @ Titrate IV .Q0M EILEEN Rx#: [id number] Tube Feeding 296 416 Other 5 60 Output: Urine 1925 1855 Other: Voiding Method Indwelling Catheter Indwelling Catheter ABP, PAP, CO, CI - Last Documented Arterial Blood Pressure 106/63 - Exam The patient is currently intubated and sedated, mechanically ventilated. The patient is currently on propofol. No paralytics for now. Head exam was generally normal. There was no scleral icterus or corneal arcus. Mucous membranes were moist. HEENT examination is grossly unremarkable. Oral endotracheal tube is noted. Neck supple. Full range of motion. No adenopathy thyromegaly or neck vein distention. A left internal jugular triple-lumen catheter is noted. Cardiovascular examination reveals an irregular rhythm and rate. Irregular S1- S2 and consistent with atrial fibrillation/flutter. No S3 or S4. No discernible murmur noted. The rate is under better control with atrial fibrillation for now. Lungs reveal coarse bilateral rhonchi and crackles. Breath sounds equal. No wheezes. Breath sounds are bit worse today. Exam is essentially unchanged. Abdomen soft bowel sounds are heard. No masses or tenderness. Extremities are intact. No cyanosis clubbing or edema. Skin is without rash or lesion. Neurologic examination is nonfocal. Unable to do a complete sedation holiday as the patient becomes quite asynchronous and she develops abdominal breathing and a synchrony with the mechanical ventilator once she goes down to 30 mics of from before. Overall examination remains nonfocal. - Labs CBC & Chem 7: 10/17/20 04:05 10/17/20 04:05 Labs: Abnormal Lab Results - Last 24 Hours (Table) 10/16/20 10/16/20 10/16/20 Range/Units 04:15 10:37 10:40 WBC (3.8-10.6) k/uL RDW (11.5-15.5) % Neutrophils # (1.3-7.7) k/uL Lymphocytes # (1.0-4.8) k/uL D-Dimer (<0.60) mg/L FEU ABG pH 7.47 H (7.35-7.45) ABG pO2 55 L* (83-108) mmHg ABG HCO3 31 H (21-25) mmol/L ABG Total CO2 33 H (19-24) mmol/L ABG O2 Saturation 90.2 L (94-97) % BUN (7-17) mg/dL Glucose (74-99) mg/dL Calcium (8.4-10.2) mg/dL Ferritin 771.1 H (10.0-291.0) ng/mL AST (14-36) U/L ALT (4-34) U/L C-Reactive Protein (<1.0) mg/dL Total Protein (6.3-8.2) g/dL Albumin (3.5-5.0) g/dL C. difficile (EIA) Intrp Positive A (Negative) 10/17/20 10/17/20 10/17/20 Range/Units 04:05 04:05 04:05 WBC 29.4 H (3.8-10.6) k/uL RDW 16.8 H (11.5-15.5) % Neutrophils # 27.4 H (1.3-7.7) k/uL Lymphocytes # 0.8 L (1.0-4.8) k/uL D-Dimer 6.12 H (<0.60) mg/L FEU ABG pH (7.35-7.45) ABG pO2 (83-108) mmHg ABG HCO3 (21-25) mmol/L ABG Total CO2 (19-24) mmol/L ABG O2 Saturation (94-97) % BUN 63 H (7-17) mg/dL Glucose 137 H (74-99) mg/dL Calcium 8.0 L (8.4-10.2) mg/dL Ferritin (10.0-291.0) ng/mL AST 38 H (14-36) U/L ALT 97 H (4-34) U/L C-Reactive Protein 4.2 H (<1.0) mg/dL Total Protein 5.5 L (6.3-8.2) g/dL Albumin 2.9 L (3.5-5.0) g/dL C. difficile (EIA) Intrp (Negative) 10/17/20 Range/Units 05:08 WBC (3.8-10.6) k/uL RDW (11.5-15.5) % Neutrophils # (1.3-7.7) k/uL Lymphocytes # (1.0-4.8) k/uL D-Dimer (<0.60) mg/L FEU ABG pH (7.35-7.45) ABG pO2 63 L (83-108) mmHg ABG HCO3 28 H (21-25) mmol/L ABG Total CO2 30 H (19-24) mmol/L ABG O2 Saturation 92.2 L (94-97) % BUN (7-17) mg/dL Glucose (74-99) mg/dL Calcium (8.4-10.2) mg/dL Ferritin (10.0-291.0) ng/mL AST (14-36) U/L ALT (4-34) U/L C-Reactive Protein (<1.0) mg/dL Total Protein (6.3-8.2) g/dL Albumin (3.5-5.0) g/dL C. difficile (EIA) Intrp (Negative) Microbiology - Last 24 Hours (Table) 10/12/20 15:24 Blood Culture - Preliminary Blood No Growth after 96 hours Assessment and Plan Plan: #1. ARDS/Acute hypoxic respiratory failure secondary to acute COVID 19 related pneumonitis, status post Tocilizumab and 1 unit of convalescent plasma on 10/03/2020, admitted to the ICU on 10/03/2020, intubated for worsening respiratory failure on 10/07/2020. The patient remains on Decadron 6 mg po every 24 hours. The patient is on Eliquis for anticoagulation especially with her underlying atrial fibrillation/flutter. Chest x-ray findings are improving and the patient has significant improvement in the right lung infiltration of today's chest x-ray.. She is currently on a PEEP of 10 with an FiO2 of 0%. Blood gases was noted. Chest x-ray was noted. There is improvement in his peak and static pressures over the past 24-48 hours. #2 History of paroxysmal atrial fibrillation, currently on a Cardizem drip at 15 mg an hour and amiodarone drip at 0.5 mg per minute. The patient is also on Eliquis for anticoagulation. The patient is also on metoprolol at a dose of 100 mg by mouth twice a day. #3. Hypotension, she is currently off norepinephrine . The patient has a normal ejection fraction of 55-60%. Note that the patient is also being diuresis with Lasix 40 mg every 12 hours and she is currently in a negative fluid balance. Meanwhile, the patient remains in a negative fluid balance with IV Lasix 40 mg every 12 hours. #4. Increased d-dimer, related to acute COVID 19, d-dimer from today's at 6.1 #5. Increased transaminases related to acute viral pneumonia. Ultrasound abdomen was completed showing multiple gallbladder stones, however total bilirubin level is normal at 0.5 #6 mild leukocytosis , currently elevated at 21.4, and the patient remains on IV cefepime for broad-spectrum antibiotic coverage. Note that the patient's leukocytosis improving. The patient was found to have E. coli in the urine or patient is on cefepime. Pro-calcitonin level was minimally elevated at 0.17. We are going to continue to follow 5 day course of cefepime. Note that the patient has already received Actemra. The patient was furthermore diagnosed having C. diff colitis which probably is contributing to her elevated white cell count. #7 enteral feeding for nutritional support #8 E. coli in the urine/UTI. #9 diarrhea, C. diff colitis. Plan: Continue ventilator support PEEP down to 10, Fio2 50% She has been on a mechanical ventilator for 10 days. I'm going to have a discussion with the family and consider the possibility of a tracheostomy tube insertion for prolonged ventilator support. I'm going to discuss this with the guardian. My understanding that the patient herself did not want any form of aggressive measurements. Her legal guardian has proceeded with all this interventions. Keep sedation with propofol give the patient a sedation holiday Continue Decadron 6 mg po every 24 hours Continue Eliquis for anticoagulation Continue enteral feeding for nutritional support Monitor inflammatory markers, d-dimer was elevated LDH is also elevated Cardiac rhythm is currently A. fib/flutter and the patient is on amiodarone and metoprolol combination, and the patient is on a Cardizem drip at 15 mg an hour and amiodarone at 0.5 mg per minute. The patient is still on metoprolol 100 mg by mouth TID. The patient is on anticoagulation with Eliquis. Lasix 40 mg every 12 hours Levofed for hemodynamic support and blood pressure support currently running at 2 mg per minute Treated total of 5 day course of IV cefepime regarding E. coli in the urine Oral vancomycin for C. diff colitis We'll continue to follow. Condition is critical Physical care evaluation that was on a more than 30 minutes Time with Patient: Greater than 30
[2020-10-17] MEDS: ZINC SULFATE 220 MG CAP PO SCH (08:44)
[2020-10-17] MEDS: ASCORBIC ACID 500 MG TAB PO SCH (08:44)
[2020-10-17] MEDS: CEFEPIME 2 GM in SODIUM CHLORIDE 0.9% 100 ML IVPB SCH ×2 (08:44→20:13)
[2020-10-17] MEDS: CHLORHEXIDINE GLUCONATE 15 ML CUP MUCOUS MEM SCH ×2 (08:44→20:15)
[2020-10-17] MEDS: FUROSEMIDE 10 MG/ML 4 ML VIAL IV SCH ×2 (08:45→20:16)
[2020-10-17] MEDS: dexAMETHasone 2 MG TAB PO SCH (08:45)
[2020-10-17] MEDS: APIXABAN 5 MG TAB PO SCH ×2 (08:45→20:15)
[2020-10-17] MEDS: FAMOTIDINE 20 MG/2 ML VIAL IV SCH ×2 (08:45→20:16)
[2020-10-17] MEDS: CHOLECALCIFEROL 25 MCG (1000 IU) TABLET PO SCH (08:46)
--- NOTE | 2020-10-17 09:42 | XR ---
EXAMINATION TYPE: XR chest 1V portable DATE OF EXAM: 10/17/2020 CLINICAL HISTORY: Difficulty breathing and covid progress study. TECHNIQUE: Single AP portable semiupright view of the chest is obtained. COMPARISON: Chest x-ray from one day earlier and older studies FINDINGS: Stable endotracheal and orogastric tubes. Stable left-sided central venous catheter. Cardiac silhouette size stable and within normal limits. Bilateral reticulonodular multifocal and con fluent opacities are redemonstrated. Some improved aeration in the right lung noted from one day negro ier. Osseous structures are intact. IMPRESSION: Bilateral reticulonodular multifocal and confluent opacities consistent with covid-19 inf ection redemonstrated. Some improvement in right lung findings noted from one day earlier.
--- NOTE | 2020-10-17 10:53 | PN ---
PROGRESS NOTE Patient is a 60-year-old female who has COVID-19 pneumonia with respiratory failure, requiring mechanical ventilation. She continues to be in atrial fibrillation with episodes of rapid ventricular response. Her heart rate got worse when she became febrile again. Her blood pressure is under better control. Her norepinephrine is almost off. She has no ventricular ectopic activity. She continues on IV amiodarone, IV Cardizem at 15 mg as well as metoprolol tartrate 10 mg 3 times a day. Her heart rate still running up to the 140s to 160. PHYSICAL EXAMINATION: Blood pressure 106/60. She had a temperature of a 101.7 earlier. No physical examination was performed. IMPRESSION: 1. Respiratory failure related to COVID-19 pneumonia. The patient remains intubated. She continues to be anticoagulated. 2. Atrial fibrillation persistent with episode of rapid ventricular response. Her ventricular response is faster whenever she is afebrile. 3. Hypertension, improved. 4. Diarrhea with C difficile colitis. RECOMMENDATION: I will increase the dose of her Cardizem to 20 mg an hour drip. Continue on the IV amiodarone and metoprolol at this time. She continues to be on diuretics and anticoagulation. We will continue to follow her renal function. Depending on her progress, further recommendations will be made. MMODL / IJN: [id number] /
[2020-10-17 11:40] LABS: Ferritin 994.7 ng/mL (10.0-291.0)
--- NOTE | 2020-10-17 15:28 | P.GSCN ---
History of Present Illness Consult date: 10/17/20 History of present illness: Consult for Trach and Peg: HPI: Patient currently on ventilatory support. Has fecal bag and ling. ROS: CONSTITUTIONAL: Morbidly obese HEENT: Thick neck ABDOMEN: Protuberant. ASSESSMENT: 1. Vent dependent respiratory failure PLAN: 1. Trach and PEG advised. Past Medical History Past Medical History: No Reported History History of Any Multi-Drug Resistant Organisms: None Reported Past Surgical History: Orthopedic Surgery Past Psychological History: Unable to Obtain Smoking Status: Former smoker Past Alcohol Use History: None Reported Past Drug Use History: None Reported - Past Family History Father Family Medical History: Cancer, Hypertension Mother Family Medical History: Cancer Medications and Allergies Home Medications Medication Instructions Recorded Confirmed Type No Known Home Medications 10/02/20 10/02/20 History Allergies Allergy/AdvReac Type Severity Reaction Status Date / Time codeine Allergy Rash/Hives Verified 10/02/20 15:23 Sulfa (Sulfonamide Allergy Rash/Hives Verified 10/02/20 15:23 Antibiotics) Penicillins AdvReac Unknown Verified 10/12/20 23:38 Surgical - Exam Vital Signs Temp Pulse Resp BP Pulse Ox 98.3 F 83 16 104/69 86 L 10/02/20 12:59 10/02/20 12:59 10/02/20 12:59 10/02/20 12:59 10/02/20 12:59 Results - Labs 10/17/20 04:05 10/17/20 04:05 Abnormal Lab Results - Last 24 Hours (Table) 10/16/20 10/16/20 10/17/20 Range/Units 04:15 10:40 04:05 WBC (3.8-10.6) k/uL RDW (11.5-15.5) % Neutrophils # (1.3-7.7) k/uL Lymphocytes # (1.0-4.8) k/uL D-Dimer (<0.60) mg/L FEU ABG pO2 (83-108) mmHg ABG HCO3 (21-25) mmol/L ABG Total CO2 (19-24) mmol/L ABG O2 Saturation (94-97) % BUN 63 H (7-17) mg/dL Glucose 137 H (74-99) mg/dL Calcium 8.0 L (8.4-10.2) mg/dL Ferritin 771.1 H 994.7 H (10.0-291.0) ng/mL AST 38 H (14-36) U/L ALT 97 H (4-34) U/L C-Reactive Protein 4.2 H (<1.0) mg/dL Total Protein 5.5 L (6.3-8.2) g/dL Albumin 2.9 L (3.5-5.0) g/dL C. difficile (EIA) Intrp Positive A (Negative) 10/17/20 10/17/20 10/17/20 Range/Units 04:05 04:05 05:08 WBC 29.4 H (3.8-10.6) k/uL RDW 16.8 H (11.5-15.5) % Neutrophils # 27.4 H (1.3-7.7) k/uL Lymphocytes # 0.8 L (1.0-4.8) k/uL D-Dimer 6.12 H (<0.60) mg/L FEU ABG pO2 63 L (83-108) mmHg ABG HCO3 28 H (21-25) mmol/L ABG Total CO2 30 H (19-24) mmol/L ABG O2 Saturation 92.2 L (94-97) % BUN (7-17) mg/dL Glucose (74-99) mg/dL Calcium (8.4-10.2) mg/dL Ferritin (10.0-291.0) ng/mL AST (14-36) U/L ALT (4-34) U/L C-Reactive Protein (<1.0) mg/dL Total Protein (6.3-8.2) g/dL Albumin (3.5-5.0) g/dL C. difficile (EIA) Intrp (Negative) Microbiology - Last 24 Hours (Table) 10/12/20 15:24 Blood Culture - Preliminary Blood No Growth after 96 hours Diabetes panel 10/16/20 10/17/20 Range/Units 21:25 04:05 Sodium 141 (137-145) mmol/L Potassium 4.5 4.4 (3.5-5.1) mmol/L Chloride 106 (98-107) mmol/L Carbon Dioxide 30 (22-30) mmol/L BUN 63 H (7-17) mg/dL Creatinine 1.03 (0.52-1.04) mg/dL Glucose 137 H (74-99) mg/dL Calcium 8.0 L (8.4-10.2) mg/dL AST 38 H (14-36) U/L ALT 97 H (4-34) U/L Alkaline Phosphatase 70 (38-126) U/L Total Protein 5.5 L (6.3-8.2) g/dL Albumin 2.9 L (3.5-5.0) g/dL Calcium panel 10/17/20 Range/Units 04:05 Calcium 8.0 L (8.4-10.2) mg/dL Phosphorus 4.1 (2.5-4.5) mg/dL Albumin 2.9 L (3.5-5.0) g/dL Pituitary panel 10/16/20 10/17/20 Range/Units 21:25 04:05 Sodium 141 (137-145) mmol/L Potassium 4.5 4.4 (3.5-5.1) mmol/L Chloride 106 (98-107) mmol/L Carbon Dioxide 30 (22-30) mmol/L BUN 63 H (7-17) mg/dL Creatinine 1.03 (0.52-1.04) mg/dL Glucose 137 H (74-99) mg/dL Calcium 8.0 L (8.4-10.2) mg/dL Adrenal panel 10/16/20 10/17/20 Range/Units 21:25 04:05 Sodium 141 (137-145) mmol/L Potassium 4.5 4.4 (3.5-5.1) mmol/L Chloride 106 (98-107) mmol/L Carbon Dioxide 30 (22-30) mmol/L BUN 63 H (7-17) mg/dL Creatinine 1.03 (0.52-1.04) mg/dL Glucose 137 H (74-99) mg/dL Calcium 8.0 L (8.4-10.2) mg/dL Total Bilirubin 0.6 (0.2-1.3) mg/dL AST 38 H (14-36) U/L ALT 97 H (4-34) U/L Alkaline Phosphatase 70 (38-126) U/L Total Protein 5.5 L (6.3-8.2) g/dL Albumin 2.9 L (3.5-5.0) g/dL
[2020-10-17] MEDS: SODIUM CHLORIDE 0.9% 500 ML 500 ML IV SCH (16:09)
--- NOTE | 2020-10-17 17:40 | P.PN ---
Progress Note - Text Progress Note Date: 10/17/20 Presenting complaint Shortness of breath History of presenting complaint Patient is a 60-year-old female, follows with Dr. Herberth Hurd, with no known past medical history who presented to the ER secondary to shortness of breath and cough. She was diagnosed with COVID 19 on 09/23/20. In the ER she was saturating 85% on room air and was found to be in A. fib with RVR and heart rates 120 to 130. Initial labs showed d-dimer of 1.77, lymphocytes 0.5, sodium 132, carbon dioxide 19, BUN 25, AST 122, ALT 47, LDH 2894, and CRP to exceed 8.2. She was admitted and was started on Decadron. She was outside of the window for Remdesivir. She was started on a Cardizem drip as well as metoprolol orally for her A. fib. She was also started on a heparin drip. She's given fluids for her hyponatremia. Pulmonary was consulted. She was requiring a nonrebreather on admission and overnight on 10/03 she was requiring maximal therapy through an air follow along with her nonrebreather to maintain low normal O2 sats. She converted to normal sinus rhythm and her Cardizem drip was stopped. Cardiology was consulted for her A. fib. She was subsequently transferred to the ICU. She had reported some leg pain and venous Dopplers were negative in bilateral lower extremities heparin drip was stopped and she had converted to normal sinus mechanism and she was subsequently started on prophylactic Lovenox. Echocardiogram showed ejection fraction 55-60% with moderate LVH. She was unable to tolerated AIRVO and was started on BiPap. Patient opted to change her CODE STATUS to DO NOT INTUBATE (October 08 patient respiratory status declined. Patient's sister obtained an emergency guardianship through the court and after she discussed with Dr. Park he decided to intubate the patient. This morning patient is on propofol and Nimbex. But the FiO2 60 the PEEP 16. I did get a call from the nurse and also from the delinquency prevention social worker for request for transfer to it was to [place] per sister and cook ship Dr. Park for ECMO. I did speak to the admitting office of the day cook ship , home with home I discussed the case at length. He said that the patient was not a candidate for transfer and can be managed here. I did give him Dr. Park's cell number for further conversation regarding his advice for management here.) Patient's again had an episode of paroxysmal atrial fibrillation . Started with loose stools. C. difficile positive. Today ICU: Ventilator: FiO2 50 and a PEEP of 10. Drips include amiodarone, Cardizem. Remains in atrial flutter uncontrolled. Sedation holiday this afternoon. No spontaneous movement in the 2 hours. FMS remains in place Review of systems: Patient intubated Active Medications Acetaminophen (Acetaminophen Tab 325 Mg Tab) 650 mg PO Q6HR PRN PRN Reason: Mild Pain or Fever > 100.5 Last Admin: 10/17/20 05:31 Dose: 650 mg Documented by: Albuterol Sulfate (Albuterol Hfa Inhaler) 2 puff INHALATION RT-Q4H [facility] Last Admin: 10/17/20 15:28 Dose: 2 puff Documented by: Albuterol Sulfate (Albuterol Hfa Inhaler) 2 puff INHALATION RT-QID PRN PRN Reason: Shortness Of Breath Or Wheezing Apixaban (Apixaban 5 Mg Tab) 5 mg PO BID [facility] Last Admin: 10/17/20 08:45 Dose: 5 mg Documented by: Artificial Tears (Artificial Tears-Hypromellose Drops 15 Ml Btl) 2 drops BOTH EYES Q4H [facility] Last Admin: 10/17/20 16:09 Dose: Not Given Documented by: Ascorbic Acid (Ascorbic Acid 500 Mg Tab) 1,000 mg PO DAILY [facility] Last Admin: 10/17/20 08:44 Dose: 1,000 mg Documented by: Chlorhexidine Gluconate (Chlorhexidine Gluconate 15 Ml Cup) 15 ml MUCOUS MEM BID [facility] Last Admin: 10/17/20 08:44 Dose: 15 ml Documented by: Cholecalciferol (Cholecalciferol 25 Mcg (1000 Iu) Tablet) 100 mcg PO DAILY [facility] Last Admin: 10/17/20 08:46 Dose: 100 mcg Documented by: Dexamethasone (Dexamethasone 2 Mg Tab) 6 mg PO DAILY [facility] Last Admin: 10/17/20 08:45 Dose: 6 mg Documented by: Famotidine (Famotidine 20 Mg/2 Ml Vial) 20 mg IV BID [facility] Last Admin: 10/17/20 08:45 Dose: 20 mg Documented by: Furosemide (Furosemide 10 Mg/Ml 4 Ml Vial) 40 mg IV Q12HR [facility] Last Admin: 10/17/20 08:45 Dose: 40 mg Documented by: Propofol 1,000 mg/ IV Solution 100 mls @ 0 mls/hr IV .Q0M [facility]; Protocol Last Titration: 10/17/20 14:00 Dose: Infused Documented by: Amiodarone HCl 450 mg/ (Dextrose/Water) 250 mls @ 16.667 mls/hr IV .Q15H [facility]; Protocol Last Admin: 10/17/20 10:42 Dose: 0.5 mg/min, 16.667 mls/hr Documented by: Cefepime HCl 2 gm/ Sodium (Chloride) 100 mls @ 25 mls/hr IVPB Q12HR [facility] Last Admin: 10/17/20 08:44 Dose: 25 mls/hr Documented by: Diltiazem HCl 125 mg/ Sodium (Chloride) 125 mls @ 20 mls/hr IV .Q6H15M [facility] Last Admin: 10/17/20 17:07 Dose: 20 mg/hr, 20 mls/hr Documented by: Sodium Chloride (Saline 0.9%) 500 mls @ 20 mls/hr IV .Q24H [facility] Last Admin: 10/17/20 16:09 Dose: 20 mls/hr Documented by: Norepinephrine Bitartrate 4 mg (/ Sodium Chloride) 254 mls @ 24.003 mls/hr IV .[id number] [facility]; Protocol Last Titration: 10/17/20 15:00 Dose: 0 mcg/kg/min, 0 mls/hr Documented by: Metoprolol Tartrate (Metoprolol Tartrate 50 Mg Tab) 100 mg PO TID [facility] Last Admin: 10/17/20 16:10 Dose: 100 mg Documented by: Morphine Sulfate (Morphine Sulfate 2 Mg/Ml Syringe) 2 mg IVP Q4H PRN PRN Reason: anxiety Last Admin: 10/13/20 11:38 Dose: 2 mg Documented by: Vancomycin HCl (Vancomycin Oral Solution 250 Mg/5 Ml Bottle) 250 mg PO Q6HR [facility] Last Admin: 10/17/20 11:36 Dose: 250 mg Documented by: Zinc Sulfate (Zinc Sulfate 220 Mg Cap) 220 mg PO DAILY [facility] Last Admin: 10/17/20 08:44 Dose: 220 mg Documented by: On examination: VITAL SIGNS: 98.1, 116, 26, 118/91, 93% on the ventilator GENERAL APPEARANCE: Sedated, intubated , RESPIRATORY: Respiratory effort increased. Accessory muscles working Rest of the exam per pulmonary and nursing Investigations: October 17: WBC 29.4 hemoglobin 11.9 platelets 242 d-dimer 6.12 potassium 4.4 creatinine 1.03 CRP 4.2 C. diff positive October 16: WBC 21.6 hemoglobin 11.2 platelets 480 potassium 4.4 creatinine 1.02 d-dimer 8.4 to CRP 19 alk phos 53 LDH 08/11/2001 October 15: WBC 21.8 hemoglobin 10.7 platelets 197 d-dimer 8.7 potassium 4.3 creatinine 1.05. Chest x-ray: Bilateral infiltrates October 14: WBC 26.5 hemoglobin 10.6 platelets 178 d-dimer 9.63 ABG with a pH of 7.38 pCO2 57 pO2 of 57 potassium 4.5 bun 65 creatinine 1.12 LDH 3 mL 78 pro- calcitonin 0.17 October 06: WBC 7.4 hemoglobin 13.2 platelets 238 d-dimer 22.8 potassium 5.3 creatinine 0.8 CRP 25.1 Abdominal ultrasound limited: Very limited exam. Possible gallstones. October 05: WBC 5.3 hemoglobin 12.9 platelets 260 d-dimer 3.65 potassium 4.9 creatinine 0.81 CRP 45.6 Chest x-ray film personally reviewed by me-[October 05]: Bilateral infiltrates more so in the lower zone Lower extremity Doppler ultrasound: Negative for DVT 2-D echocardiogram: Concentric LVH, EF 55-60% Admission labs: D-dimer 1.77 CRP 68.2 Sputum: Corynebacterium stratum Urine culture: E. coli Assessment and plan: COVID 19 pneumonia with acute hypoxic respiratory failure,-not improving -Continue with Decadron, Zinc, vitamin C, vitamin D, IV heparin changed to eliquis [ Convolescent Plasma 10/03, Toci X 1 on 10/03 ] Septic. Suspect secondary bacterial not improving IV cefepime -Septic and cardiogenic shock Acute hypoxic respiratory failure secondary to COVID 19 pneumonia,-not improving. Remains on ventilator support, FiO2 50 % Paroxysmal atrial fibrillation, repeated episodes of rapid ventricular rate- currently sinus rhythm. Back into atrial fibrillation-rate remains uncontrolled eliquis. Currently IV Cardizem and IV amiodarone Transaminitis likely secondary to illness -Follow liver enzymes. ultrasound: Poor quality. -Gallstones, asymptomatic Hyponatremia secondary decreased solute intake in addition to water. -Corrected -Morbid obesity with BMI 41 outpatient weight loss -Hyperkalemia Corrected -Acute UTI with cystitis from E. coli On IV cefepime -Legal guardian: Krista patient's sister -Acute C. diff colitis Started on oral vancomycin Patient's prognosis remains poor. Follow-up with cook ship Remains A. fib uncontrolled. Febrile. IV cefepime. Prognosis not good
[2020-10-18] MEDS: METOPROLOL TARTRATE 50 MG TAB PO SCH ×3 (01:14→22:10)
[2020-10-18] MEDS: ALBUTEROL HFA INHALER INHALATION SCH ×5 (03:42→19:32)
[2020-10-18] MEDS: NOREPINEPHRINE 4 MG in SODIUM CHLORIDE 0.9% 250 ML IV SCH ×2 (03:50→12:25)
[2020-10-18] MEDS: ARTIFICIAL TEARS-HYPROMELLOSE DROPS 15 ML BTL BOTH EYES SCH ×5 (05:03→19:50)
[2020-10-18 05:29] LABS: ABG Base Excess 1.8 mmol/L; ABG HCO3 27 mmol/L (21-25); ABG Oxygen Saturation 95.4 % (94-97); ABG PCO2 47 mmHg (35-45); ABG PH 7.37 (7.35-7.45); ABG PO2 80 mmHg (83-108); ABG TCO2 29 mmol/L (19-24); Allen Test Performed? Yes
--- NOTE | 2020-10-18 06:02 | XR ---
EXAMINATION TYPE: XR chest 1V portable DATE OF EXAM: 10/18/2020 CLINICAL HISTORY: Difficulty breathing progress study. TECHNIQUE: Single AP portable semiupright view of the chest is obtained. COMPARISON: Chest x-ray from one day earlier and older studies FINDINGS: Stable endotracheal and orogastric tubes. Stable left-sided central venous catheter. Cardiac silhouette size stable and within normal limits. Bilateral multifocal and confluent reticulon odular opacities are redemonstrated. Osseous structures are intact. IMPRESSION: Bilateral multifocal and confluent reticulonodular opacities consistent with covid-19 in fection redemonstrated. No significant change from one day earlier.
[2020-10-18] MEDS: VANCOMYCIN ORAL SOLUTION 250 MG/5 ML BOTTLE PO SCH ×3 (06:18→17:38)
[2020-10-18 08:01] LABS: Anisocytosis Slight; Basophils % (A) 0 %; Eosinophils % (A) 0 %; HCT 37.3 % (34.0-46.0); HGB 11.9 gm/dL (11.4-16.0); Lymphocytes # (A) 0.5 k/uL (1.0-4.8); Lymphocytes % (A) 2 %; MCH 28.4 pg (25.0-35.0); MCHC 31.8 g/dL (31.0-37.0); MCV 89.2 fL (80.0-100.0); Mean Platelet Volume 8.7; Monocytes # (A) 0.9 k/uL (0-1.0); Monocytes % (A) 3 %; Neutrophils # (A) 29.8 k/uL (1.3-7.7); Neutrophils % (A) 95 %; Platelet Count 275 k/uL (150-450); RBC 4.18 m/uL (3.80-5.40); RDW 17.1 % (11.5-15.5)
[2020-10-18 08:02] LABS: Albumin 2.9 g/dL (3.5-5.0); C Reactive Protein 4.5 mg/dL (<1.0); Calcium 7.6 mg/dL (8.4-10.2); Total Bilirubin 0.6 mg/dL (0.2-1.3); Total Protein 5.5 g/dL (6.3-8.2)
[2020-10-18] MEDS: ZINC SULFATE 220 MG CAP PO SCH (08:05)
[2020-10-18] MEDS: ASCORBIC ACID 500 MG TAB PO SCH (08:05)
[2020-10-18] MEDS: CHOLECALCIFEROL 25 MCG (1000 IU) TABLET PO SCH (08:05)
[2020-10-18] MEDS: FAMOTIDINE 20 MG/2 ML VIAL IV SCH ×2 (08:05→22:10)
[2020-10-18] MEDS: dexAMETHasone 2 MG TAB PO SCH (08:05)
[2020-10-18] MEDS: APIXABAN 5 MG TAB PO SCH ×2 (08:05→22:10)
[2020-10-18] MEDS: CHLORHEXIDINE GLUCONATE 15 ML CUP MUCOUS MEM SCH ×2 (08:06→22:10)
[2020-10-18] MEDS: FUROSEMIDE 10 MG/ML 4 ML VIAL IV SCH ×2 (08:06→10:27)
[2020-10-18] MEDS: DILTIAZEM 125 MG in SODIUM CHLORIDE 0.9% 100 ML IV SCH ×3 (08:06→22:11)
[2020-10-18] MEDS: CEFEPIME 2 GM in SODIUM CHLORIDE 0.9% 100 ML IVPB SCH (08:06)
[2020-10-18 08:07] LABS: WBC 31.3 k/uL (3.8-10.6)
--- NOTE | 2020-10-18 08:55 | P.PN ---
Subjective Progress Note Date: 10/18/20 On today's evaluation of 10/12/2020 seeing this patient for a follow-up. Is a 60-year-old male patient with COVID 19 pneumonia. Pneumonia and secondary hypoxic respiratory failure. The patient was intubated and placed on a mechanical ventilator. The patient was admitted to the ICU on 10/03/2020 and the patient was extubated on 10/07/2020. Initially the patient was on high flow oxygen which she failed and subsequently his condition progressed and the patient has to be intubated and placed on a mechanical ventilator. The patient has already received 2 units of convalescent plasma, the patient has received Tocilizumab and the patient is currently on steroids. On today's evaluation, the patient is sedated with propofol at 45 mcg/kg per minute and the patient is calm and comfortable successful mechanical ventilator. Propofol is running at 45 mics respiratory per minute. The patient was paralyzed earlier with Nimbex and this was discontinued and he had to be placed back and the patient is currently back on nimbex 1 mcg/kg per minute.. The patient is also intubated on a mechanical ventilator within assist-control at the rate of 30, FiO2 of 60%, PEEP 16 with a tidal volume of 400. Blood gases were noted. The ABG from this morning showed a pH of 7.32 with a pCO2 of 62 and pO2 of 122. The chest x-ray from today is unchanged and the patient has bilateral pulmonary infiltrates more so on the right lower lobe. ET tube is in a good location. As for the blood work, the patient has a white cell count of 23 with a hemoglobin of 12 and a d- dimer of 8.66, BUN is a 50 with a creatinine of 0.9, LDH level is 4302 and a CRP level is at 9.4. The patient is hemodynamically stable on no pressors. Patient was being performed earlier and currently is in a supine body position. The chest x-ray from today showing diffuse breath and pulmonary infiltrates and ET tube is in a good location. The patient is on a enteral feeding with vital high protein at the rate of 40 mL an hour. The neck fluid balance over the past 24 hours is -226 mL and there are no signs of any significant fluid overload. Producing adequate amount of urine output. The cardiac rhythm is A. fib/flutter and the patient is currently on Eliquis. The peak airway pressure is 34 anesthetic pressures around 33. On 10/13/2020 on seeing the patient for a follow-up. The patient remains in intensive care unit. This is a 60-year-old female patient with Covid interrelated pneumonia with hypoxic respiratory failure. The patient has been on a mechanical ventilator since 10/07/2020. The patient currently is on propofol which is running at 60 mcg/kg per minute and the patient is also on paralytics which is running in the form of Nimbex at 1 mcg/kg per minute. Attempts to wean off the Nimbex failed and the patient had to be paralyzed again. Meanwhile, the patient remains on a mechanical ventilator, assist control rate of 30 with an FiO2 of 40% and a PEEP of 16 and a tidal volume of 400. The blood gases from today shows a pH of 7.33 with a pCO2 of 61 and pO2 of 71. The peak airway pressures are 33 and a plateau airway pressure is 31. The chest x-ray from today show an stable bilateral pulmonary infiltrates, with right midlung and left lower lobe pulmonary infiltration and the chest x-ray findings are essentially stable since yesterday without any significant interval change. Her potassium level was at 5.7 and his morning and based on that the patient was given a dose of Kayexalate 30 Repeat potassium is pending for now. Meanwhile, the patient remains hemodynamically stable. The patient is on levo fed, at 0.06 mcg/kg per minute. This should be gradually weaned off today. The patient is on enteral feeding for nutritional support and the patient is on vital high protein at 40 mL an hour. The patient remains in episodes of atrial fibrillation/flutter and this morning is she is on Cardizem at 10 mg an hour and the patient was loaded again with amiodarone and maintained on a infusion of amiodarone at 0.5 she'll be switched back to oral amiodarone today. She remains on Eliquis 5 mg by mouth twice a day. Empiric antibiotic coverage with IV cefepime. She remains on Decadron 6 mg IV every 24 hours. IV fluids with normal saline at the rate of 25 mL an hour. The fluid balance over the past 24 hours has been -49 mL. 10/14/2020, I'm seeing the patient for a follow-up. The patient was intubated and she has been on a mechanical ventilator since 10/07/2020. I'm seeing her today in follow-up. She remains on propofol at 45 mcg/kg per minute and the patient is currently on Nimbex at 1 mcg/kg per minute. She is well sedated and paralyzed. Paralytic Cardizem being given to her daily basis. She failed yesterday and the same of discharge today. She had a mechanical ventilator assist control mode at the rate of 30 with an FiO2 of 40% and a PEEP of 12 with tidal volume of 400. Blood gases from today shows a pH of 7.3388 with a pCO2 of 57 and pO2 of 57. As for the chest x-ray, I do not see any interval change in the patient has diffuse bilateral pulmonary infiltrates. Peak airway pressure is 31 with a static pressure of 26. IV fluids with normal saline at the rate of 25 mL an hour. She is still having issues with atrial fibrillation. She is currently on a combination of Cardizem drip at the rate of 15 mg an hour and amiodarone at 0.5 mg per minute and metoprolol at a dose of 100 mg by mouth 3 times a day. Earlier this morning, the patient was still tachycardic and the patient was being considered for digoxin. Nevertheless, her heart rate currentl y is down at 9365 per minute. Earlier this morning it was in the 130s up to 160 range. Otherwise, the patient is on no pressors since yesterday, the patient's electrolytes today show improvement in her potassium down to 4.7 being given Kayexalate. BUN 65 with a creatinine of 1.1. The LDH level is 3378 which is still elevated although lower compared to yesterday and his CRP level is at 7.7. Serum bicarb is 34.. Calcitonin levels of 0.17 and the patient is currently on empiric antibiotic coverage with cefepime. Urine culture was showing gram- negative bacillus and the final culture are still pending for now. We will cefepime gram-negative bacilli fluid: Balance balance is positive of 1 L over the past 24 hours. 2020, the patient is being seen for a follow-up. He remains intubated on a mechanical ventilator. Currently on propofol running at 50 mcg/kg per minute and the patient wishes currently off Nimbex and the patient was taken off the paralytics yesterday. Meanwhile, the patient remains on a mechanical ventilator on assist control mode and she is on assist-control at the rate of 30 with an FiO2 of 50% and a PEEP currently is at 12 with a tidal volume of 400. The peak and static pressures are lower with a levels of 28 and 19 respectively. The blood gases from today shows a pH of 7.41 with a pCO2 of 53 and pO2 of 77 and the patient's agitation is improved. The chest x-ray from today showing diffuse bilateral pulmonary infiltrates, unchanged with orotracheal tube being in a good location. The patient is being treated with Decadron 6 mg IV every 24 hours. She remains on Eliquis 5 mg by mouth twice a day. She has a d-dimer of 8.7 from today, slightly lower and the rest of the inflammatory markers are still pending for now. Meanwhile, hemodynamically, the patient is stable and she is on no pressors. Her atrial fibrillation/flutter is under much better control. She is currently in a flutter rhythm. Amiodarone is running at 0.5 mg per minute and the patient is also on metoprolol 100 mg by mouth 3 times a day and Cardizem at 15 mg an hour. The plan is to continue these per cardiology. The patient is also on empiric antibiotic coverage with IV cefepime. The pro calcitonin level was 0.17. The patient is afebrile. No respiratory secretions. Cultures of been all negative. I'm inclined to continue the antibiotics as the patient has E. coli in her urine off for 10/12. 10/16/2020, the patient remains on a mechanical ventilator. Unfortunately, she is not doing any much progress. She was taken off the Nimbex and she is still on her lipase for now. She is also on propofol running at 50 mcg/kg per minute. Unfortunately, she was having issues with oxygen desaturation yesterday. I had to make some ventilator changes and currently she is an assist-control mode at a rate of 30 with a FiO2 of 70% and a PEEP of 10 and a tidal volume of 400. The blood gases from this morning showed a pH of 7.4 with a pCO2 of 50 and pO2 of 89. Chest x-ray is unchanged with diffuse bilateral pulmonary infiltrates. She remains on Decadron 6 mg by mouth. She remains also and a A. fib flutter rhythm and after being controlled for a while, the patient went back to become tachycardic again despite being on a combination of metoprolol 100 mg 3 times a day, Cardizem drip and then amiodarone drip. She still has a coagulation with Eliquis. Discussed with cardiology. Not a candidate for cardioversion. IV antibiotics is emphatic and the patient's Prograf level is low at 0.17. She is afebrile. She is on enteral feeding for nutritional support and she is currently on vital high protein at the rate of 40 mL an hour. She has E. coli in the urine. She also had abnormal inflammatory markers with an LDH of 08/11/2001, CRP of 19, and a d-dimer level of 8.4. Around 7:00 this morning, the patient was becoming hypotensive and she was started on low-dose norepinephrine which is running at 5 g per minute. Her net fluid balance is - 2.6 L over the past 24 hours and the patient is receiving Lasix 40 mg IV push every 12 hours. She is also having some diarrhea and she has a fecal management system in place. Stool for C. diff will be checked before the injury. Note that the patient is receiving IV cefepime that was initially emphatic and later on antibiotic was kept on board because of E. coli in the urine. She also has c orynebacterium in the sputum, a colonizer. 17 2020, the patient is being seen for a follow-up. She is on propofol and she remains off Nimbex. Propofol is running at 50 mcg/kg per minute. She is also on assist control mode of ventilation on a rate of 24, tidal volume of 450, FiO2 of 50% and a PEEP of 10. Peak airway pressure is 31. Static pressure is 28. Blood gases showed a pH of 7.43 with a pCO2 of 43 and pO2 of 63. She is breathing comfortably on a mechanical ventilator. The chest x-ray from today is showing some limited infiltration in lung bases left more than right. Orotrache al tube is in a good location. Comparing chest x-rays, she has marked improvement in the infiltration is noted on the right compared to the earlier chest x-ray from yesterday. Left side remains essentially unchanged. She is off paralytics. She remains in atrial fibrillation. Rate has been fluctuating. After being tachycardic for it some time, she improved and currently she is back having some ongoing tachycardia. Her heart rate Cardizem 150. The patient remains on amiodarone drip at 0.5 mg per minute that she is also on Cardizem drip at 15 mg an hour. The patient is also on Eliquis for long-term and coagulation regarding the ongoing atrial fibrillation. She remains on metoprolol 100 mg by mouth 3 times a day for rate control. Note that the patient had become also hypotensive and the patient was started on norepinephrine infusion at the low-dose of 0.02 mics per kilogram per minute is being gradually weaned off. She is receiving enteral feeding for nutritional support with vital high protein at the rate of 40 mL an hour. For that overall fluid balance over the past 24 hours has been -2.1 L. The patient remains on Lasix 40 mg of push every 12 hours. She was having liquidy stool/bowel movements and the patient was further testing and she checked positive for C. diff and the patient was started on oral vancomycin. Note that her antibiotic coverage was with IV cefepime and this was essentially an empiric antibiotic coverage. Was found to have gram-negative UTI with Ecoli and the plan was to continue the antibiotics for a total of 5 days. The pro calcitonin level from 10/14/2020 WAS 0.17. FOR THE CORYNEBACTERIUM, IN THE SPUTUM, THIS IS LIKELY A COLONIZER. 10/18/2020, the patient has been off sedation since yesterday at 2 PM. Neurologically, she is still not awake. She may have some reflexes with deep painful stimulation such as grimacing. She is not withdrawing. Note that the patient has taken significant amount of sedation during her hospitalization and this may be a residual drug effect. She is on mechanical ventilator. On today's evaluation, she is on assist-control at the rate of 44 with a tidal volume of 450 and FiO2 of 50% with a PEEP of 10. Peak and static pressures are 26 and 24 respectively. Blood gases showed a pH of 7.37 with a pCO2 of 47 and pO2 of 80. Chest x-ray from today showing bilateral multifocal areas of reticular another opacities and infiltrates consistent with COVID-19 related pneumonia/ARDS. The patient is not having any significant orotracheal secretions. I had a lengthy discussion with the family and I discussed the case with her sister and the daughter and the [id number] and we have made decis ions to proceed with a PEG and trach and the surgeon was going through the procedure will be up to the discretion of the family. The patient meanwhile is an atrial fibrillation. The rate is controlled at the rate of 116 and the patient is currently on anticoagulation withEliquis 5 mg by mouth twice a day. In terms of rate control she is still on Cardizem drip at 20 mg an hour and she is also on amiodarone at 0.5 mg per minute. She is also on Lopressor 100 mg by mouth 3 times a day. Cardiology rounded on the patient and he wanted to keep the same medications for now. The patient is also being diuresis with IV Lasix patient is receiving 40 mg IV every 12 hours. Once that is improving and the patient continues to be a negative fluid balance.Fluid balance was -5 94 mL over the past 24 hours. Meanwhile, the BUN is at 72 and the creatinine is at 1.1. Her inflammatory markers regarding COVID-19 showed a LDH level of 2440 on the d- dimer currently is at 4.96. CRP is at 4.5. She is receiving enteral feeding for nutritional support in the form of vital high protein at the rate of 32 mL an hour. She was having liquidy stool and this turned out to be consistent with C. diff colitis. She is currently on oral vancomycin. The diarrhea has slowed down since yesterday. No fever. The white cell count is currently elevated at 31. She is on IV cefepime regarding E. coli in her urine. She remains on a low dose of norepinephrine infusion at 0.02 micrograms per kilogram per minute. Objective - Vital Signs Vital signs: Vital Signs Temp 100.5 F H 10/18/20 08:00 Pulse 114 H 10/18/20 08:00 Resp 25 H 10/18/20 08:00 BP 117/72 10/18/20 08:00 Pulse Ox 93 L 10/18/20 08:00 Intake & Output 10/17/20 10/18/20 10/18/20 18:59 06:59 18:59 Intake Total 6820.070 1948.027 236.549 Output Total 2295 1125 135 Balance -740.534 146.027 101.549 Weight 127.3 kg Intake: IV 353 398 48 0.9 Normal Saline @ KVO 220 240 40 0.9 Normal Saline 33 58 8 Pressure Bags Cefepime 2 gm In Sodium 100 100 Chloride 0.9% 100 ml @ 25 mls/hr IVPB Q12HR [facility] Rx #:[id number] Intake, IV Titration 759.466 393.027 94.549 Amount Amiodarone 450 mg In 250 213.893 Dextrose 5% in Water 250 ml @ 0.5 MG/MIN 16.667 mls/hr IV .Q15H [facility] Rx#: [id number] Diltiazem 125 mg In 223.167 174.333 75.667 Sodium Chloride 0.9% 100 ml @ 20 MG/HR 20 mls/hr IV .[id number] [facility] Rx#: [id number] Norepinephrine 4 mg In 86.299 4.801 18.882 Sodium Chloride 0.9% 250 ml @ 0.05 MCG/KG/MIN 24. 003 mls/hr IV .[id number] [facility] Rx#:[id number] propofoL 1,000 mg In 200 Empty Bag 1 bag @ Titrate IV .Q0M [facility] Rx#: [id number] Tube Feeding 352 360 64 Other 90 120 30 Output: Urine 1295 1125 135 Stool 1000 Other: Voiding Method Indwelling Catheter Indwelling Catheter ABP, PAP, CO, CI - Last Documented Arterial Blood Pressure 111/60 - Exam The patient is currently intubated and sedated, mechanically ventilated. The patient is currently off propofol. off paralytics for now. Head exam was generally normal. There was no scleral icterus or corneal arcus. Mucous membranes were moist. HEENT examination is grossly unremarkable. Oral endotracheal tube is noted. Neck supple. Full range of motion. No adenopathy thyromegaly or neck vein distention. A left internal jugular triple-lumen catheter is noted. Cardiovascular examination reveals an irregular rhythm and rate. Irregular S1- S2 and consistent with atrial fibrillation/flutter. No S3 or S4. No discernible murmur noted. The rate is under better control with atrial fibrillation for now. Lungs reveal coarse bilateral rhonchi and crackles. Breath sounds equal. No wheezes. Breath sounds are bit worse today. Exam is essentially unchanged. Abdomen soft bowel sounds are heard. No masses or tenderness. Extremities are intact. No cyanosis clubbing or edema. Skin is without rash or lesion. Neurologic examination is nonfocal. The patient is riding the ventilator. Pupils are equal and reactive to light. Reflexes in terms of blinking gag have been improving. Overall examination remains nonfocal. - Labs CBC & Chem 7: 10/18/20 06:50 10/18/20 06:50 Labs: Abnormal Lab Results - Last 24 Hours (Table) 10/17/20 10/18/20 10/18/20 Range/Units 04:05 05:24 06:50 WBC (3.8-10.6) k/uL RDW (11.5-15.5) % Neutrophils # (1.3-7.7) k/uL Lymphocytes # (1.0-4.8) k/uL D-Dimer (<0.60) mg/L FEU ABG pCO2 47 H (35-45) mmHg ABG pO2 80 L (83-108) mmHg ABG HCO3 27 H (21-25) mmol/L ABG Total CO2 29 H (19-24) mmol/L Chloride 109 H (98-107) mmol/L BUN 72 H (7-17) mg/dL Creatinine 1.10 H (0.52-1.04) mg/dL Glucose 153 H (74-99) mg/dL Calcium 7.6 L (8.4-10.2) mg/dL Ferritin 994.7 H (10.0-291.0) ng/mL ALT 85 H (4-34) U/L Lactate Dehydrogenase 2440 H (313-618) U/L C-Reactive Protein 4.5 H (<1.0) mg/dL Total Protein 5.5 L (6.3-8.2) g/dL Albumin 2.9 L (3.5-5.0) g/dL 10/18/20 10/18/20 Range/Units 06:50 06:50 WBC 31.3 H (3.8-10.6) k/uL RDW 17.1 H (11.5-15.5) % Neutrophils # 29.8 H (1.3-7.7) k/uL Lymphocytes # 0.5 L (1.0-4.8) k/uL D-Dimer 4.96 H (<0.60) mg/L FEU ABG pCO2 (35-45) mmHg ABG pO2 (83-108) mmHg ABG HCO3 (21-25) mmol/L ABG Total CO2 (19-24) mmol/L Chloride (98-107) mmol/L BUN (7-17) mg/dL Creatinine (0.52-1.04) mg/dL Glucose (74-99) mg/dL Calcium (8.4-10.2) mg/dL Ferritin (10.0-291.0) ng/mL ALT (4-34) U/L Lactate Dehydrogenase (313-618) U/L C-Reactive Protein (<1.0) mg/dL Total Protein (6.3-8.2) g/dL Albumin (3.5-5.0) g/dL Microbiology - Last 24 Hours (Table) 10/12/20 15:24 Blood Culture - Preliminary Blood No Growth after 120 hours Assessment and Plan Plan: #1. ARDS/Acute hypoxic respiratory failure secondary to acute COVID 19 related pneumonitis, status post Tocilizumab and 1 unit of convalescent plasma on 10/03/2020, admitted to the ICU on 10/03/2020, intubated for worsening respiratory failure on 10/07/2020. The patient remains on Decadron 6 mg po every 24 hours. Inflammatory markers remain unchanged and elevated in terms of the LDH. The chest x-ray findings are unchanged. There has been some improvement in the patient's oxygenation and the PEEP has been weaned down to 10 with an FiO2 of 50%. Plan is to proceed with a PEG and trach and I had a discussion with the family and they're agreeable to that. Meanwhile, the patient is off sedation. Her mental status being monitored. She's been off sedation for almost 24 hours for now. There is improvement in his peak and static pressures over the past 24-48 hours. #2 History of paroxysmal atrial fibrillation, currently on a Cardizem drip at 15 mg an hour and amiodarone drip at 0.5 mg per minute. The patient is also on Eliquis for anticoagulation. The patient is also on metoprolol at a dose of 100 mg by mouth twice a day. #3. Hypotension. The patient has a normal ejection fraction of 55-60%. Note that the patient is also being diuresis with Lasix 40 mg every 12 hours and she is currently in a negative fluid balance. Meanwhile, the patient remains in a negative fluid balance with IV Lasix 40 mg every 12 hours. The patient has been negative fluid balance and the patient is requiring low dose norepinephrine infusion for hemodynamic support. #4. Increased d-dimer, related to acute COVID 19, d-dimer from today's at 4.9 #5. Increased transaminases related to acute viral pneumonia. Ultrasound abdomen was completed showing multiple gallbladder stones, however total bilirubin level is normal at 0.5 #6 mild leukocytosis , currently elevated at 31 , most likely related to C. diff colitis and the patient is currently on oral vancomycin. The patient is c ompleting five-day course of IV cefepime regarding E. coli in the urine. #7 enteral feeding for nutritional support #8 E. coli in the urine/UTI. #9 diarrhea, C. diff colitis. Plan: Continue ventilator support PEEP down to 10, Fio2 50% and no other vent changes for today, Discussed the case with the family and we are headed to undergo a tracheostomy tube insertion and effective insertion early next week Keep sedation with propofol give the patient a sedation holiday , off sedation for the past 24 hours, monitor mental status and monitor neurologic recovery Continue Decadron 6 mg po every 24 hours Continue Eliquis for anticoagulation Continue enteral feeding for nutritional support Monitor inflammatory markers, d-dimer was elevated LDH is also elevated Cardiac rhythm is currently A. fib/flutter and the patient is on amiodarone and metoprolol combination, and the patient is on a Cardizem drip at 15 mg an hour and amiodarone at 0.5 mg per minute. The patient is still on metoprolol 100 mg by mouth TID. The patient is on anticoagulation with Eliquis Stop the IV cefepime Drop the Lasix dose to 40 mg every 24 hours Norepinephrine for blood pressure support currently running at 2 mg per minute Oral vancomycin for C. diff colitis We'll continue to follow. Condition is critical Physical care evaluation that was on a more than 30 minutes Time with Patient: Greater than 30
--- NOTE | 2020-10-18 09:47 | PN ---
PROGRESS NOTE Mrs. Olmedo is a 60-year-old female who presented with respiratory failure related to COVID-19 infection pneumonia. She had atrial fibrillation and atrial flutter with episode of rapid ventricular response. She remains intubated. She continues to be in atrial flutter with episodes of rapid ventricular response, although when she is afebrile, her ventricular response is under better control. There is no ventricular ectopic activity. Her blood pressure has been relatively stable. Urine output is good. She continues to be on IV amiodarone, IV Cardizem 20 mg an hour, in addition to metoprolol tartrate 100 mg 3 times a day. She is afebrile this morning. She had evidence of C difficile infection. PHYSICAL EXAMINATION: Blood pressure 111/60 with a heart rate in the 110s, temperature 100.5. No examination was done. IMPRESSION: 1. Respiratory failure with COVID-19 pneumonia. 2. Atrial fibrillation, atrial flutter with episode of rapid ventricular response during febrile episodes in spite of high dose of negative chronotropic drugs. 3. Diarrhea with C difficile colitis. 4. Prolonged intubation. Being evaluated for PEG tube and tracheostomy. RECOMMENDATION: From the cardiac standpoint will continue on supportive care at this time with the present therapy. Her renal function and showed a BUN of 72 and a creatinine of 1.1, potassium is 4.0. She continues to have significant leukocytosis. MMODL / IJN: [id number] /
[2020-10-18] MEDS: ACETAMINOPHEN TAB 325 MG TAB PO PRN (13:03)
--- NOTE | 2020-10-18 16:23 | P.PN ---
Subjective Progress Note Date: 10/18/20 Patient has COVID pneumonia on full ventilatory support. She is on Eliquis for new afib. She also has CDiff and E.coli UTI. HEENT: Full ventilatory support ABDOMEN: Protuberant ASSESSMENT: 1. COVID pneumonia PLAN: 1. Trach and PEG per advisement. 2. Patient elevated risk with Eliquis blood thinner including CDiff, COVID, and E.coli UTI with new afib. Objective - Vital Signs Vital signs: Vital Signs Temp 99.6 F 10/18/20 15:00 Pulse 135 H 10/18/20 15:00 Resp 25 H 10/18/20 15:00 BP 119/74 10/18/20 15:00 Pulse Ox 94 L 10/18/20 15:00 Intake & Output 10/17/20 10/18/20 10/18/20 18:59 06:59 18:59 Intake Total 2728.752 0681.027 762.910 Output Total 2295 1125 850 Balance -740.534 146.027 -87.090 Weight 127.3 kg Intake: IV 353 398 309 0.9 Normal Saline @ KVO 220 240 180 0.9 Normal Saline 33 58 29 Pressure Bags Cefepime 2 gm In Sodium 100 100 100 Chloride 0.9% 100 ml @ 25 mls/hr IVPB Q12HR [facility] Rx #:[id number] Intake, IV Titration 759.466 393.027 105.910 Amount Amiodarone 450 mg In 250 213.893 Dextrose 5% in Water 250 ml @ 0.5 MG/MIN 16.667 mls/hr IV .Q15H [facility] Rx#: [id number] Diltiazem 125 mg In 223.167 174.333 75.667 Sodium Chloride 0.9% 100 ml @ 20 MG/HR 20 mls/hr IV .Q6H15M [facility] Rx#: [id number] Norepinephrine 4 mg In 86.299 4.801 30.243 Sodium Chloride 0.9% 250 ml @ 0.05 MCG/KG/MIN 24. 003 mls/hr IV .[id number] [facility] Rx#:[id number] propofoL 1,000 mg In 200 Empty Bag 1 bag @ Titrate IV .Q0M [facility] Rx#: [id number] Tube Feeding 352 360 288 Other 90 120 60 Output: Urine 1295 1125 850 Stool 1000 Other: Voiding Method Indwelling Catheter Indwelling Catheter Indwelling Catheter ABP, PAP, CO, CI - Last Documented Arterial Blood Pressure 115/59 - Labs CBC & Chem 7: 10/18/20 06:50 10/18/20 06:50 Labs: Abnormal Lab Results - Last 24 Hours (Table) 10/18/20 10/18/20 10/18/20 Range/Units 05:24 06:50 06:50 WBC 31.3 H (3.8-10.6) k/uL RDW 17.1 H (11.5-15.5) % Neutrophils # 29.8 H (1.3-7.7) k/uL Lymphocytes # 0.5 L (1.0-4.8) k/uL D-Dimer (<0.60) mg/L FEU ABG pCO2 47 H (35-45) mmHg ABG pO2 80 L (83-108) mmHg ABG HCO3 27 H (21-25) mmol/L ABG Total CO2 29 H (19-24) mmol/L Chloride 109 H (98-107) mmol/L BUN 72 H (7-17) mg/dL Creatinine 1.10 H (0.52-1.04) mg/dL Glucose 153 H (74-99) mg/dL Calcium 7.6 L (8.4-10.2) mg/dL ALT 85 H (4-34) U/L Lactate Dehydrogenase 2440 H (313-618) U/L C-Reactive Protein 4.5 H (<1.0) mg/dL Total Protein 5.5 L (6.3-8.2) g/dL Albumin 2.9 L (3.5-5.0) g/dL 10/18/20 Range/Units 06:50 WBC (3.8-10.6) k/uL RDW (11.5-15.5) % Neutrophils # (1.3-7.7) k/uL Lymphocytes # (1.0-4.8) k/uL D-Dimer 4.96 H (<0.60) mg/L FEU ABG pCO2 (35-45) mmHg ABG pO2 (83-108) mmHg ABG HCO3 (21-25) mmol/L ABG Total CO2 (19-24) mmol/L Chloride (98-107) mmol/L BUN (7-17) mg/dL Creatinine (0.52-1.04) mg/dL Glucose (74-99) mg/dL Calcium (8.4-10.2) mg/dL ALT (4-34) U/L Lactate Dehydrogenase (313-618) U/L C-Reactive Protein (<1.0) mg/dL Total Protein (6.3-8.2) g/dL Albumin (3.5-5.0) g/dL Microbiology - Last 24 Hours (Table) 10/12/20 15:24 Blood Culture - Preliminary Blood No Growth after 120 hours
[2020-10-18] MEDS: AMIODARONE 450 MG in DEXTROSE 5% IN WATER 250 ML IV SCH ×2 (17:40)
[2020-10-18] MEDS: SODIUM CHLORIDE 0.9% 500 ML 500 ML IV SCH (17:59)
--- NOTE | 2020-10-18 20:18 | P.PN ---
Progress Note - Text Progress Note Date: 10/18/20 Presenting complaint Shortness of breath History of presenting complaint Patient is a 60-year-old female, follows with Dr. Herberth Hurd, with no known past medical history who presented to the ER secondary to shortness of breath and cough. She was diagnosed with COVID 19 on 09/23/20. In the ER she was saturating 85% on room air and was found to be in A. fib with RVR and heart rates 120 to 130. Initial labs showed d-dimer of 1.77, lymphocytes 0.5, sodium 132, carbon dioxide 19, BUN 25, AST 122, ALT 47, LDH 2894, and CRP to exceed 8.2. She was admitted and was started on Decadron. She was outside of the window for Remdesivir. She was started on a Cardizem drip as well as metoprolol orally for her A. fib. She was also started on a heparin drip. She's given fluids for her hyponatremia. Pulmonary was consulted. She was requiring a nonrebreather on admission and overnight on 10/03 she was requiring maximal therapy through an air follow along with her nonrebreather to maintain low normal O2 sats. She converted to normal sinus rhythm and her Cardizem drip was stopped. Cardiology was consulted for her A. fib. She was subsequently transferred to the ICU. She had reported some leg pain and venous Dopplers were negative in bilateral lower extremities heparin drip was stopped and she had converted to normal sinus mechanism and she was subsequently started on prophylactic Lovenox. Echocardiogram showed ejection fraction 55-60% with moderate LVH. She was unable to tolerated AIRVO and was started on BiPap. Patient opted to change her CODE STATUS to DO NOT INTUBATE (October 08 patient respiratory status declined. Patient's sister obtained an emergency guardianship through the court and after she discussed with Dr. Park he decided to intubate the patient. This morning patient is on propofol and Nimbex. But the FiO2 60 the PEEP 16. I did get a call from the nurse and also from the school social worker for request for transfer to it was to [place] per sister and education general manager Dr. Park for ECMO. I did speak to the admitting office of the day education general manager , home with home I discussed the case at length. He said that the patient was not a candidate for transfer and can be managed here. I did give him Dr. Park's cell number for further conversation regarding his advice for management here.) Patient's again had an episode of paroxysmal atrial fibrillation . Started with loose stools- C. difficile positive. Oral vancomycin admitted Today ICU: Ventilator: FiO2 50 and PEEP of 10. Drips include IV amiodarone and Cardizem. Remains in atrial flutter fibrillation of the rate of 130s. 2 feeding at 32 mL an hour. Patient has an ET tube and OG tube. Review of systems: Patient intubated Active Medications Acetaminophen (Acetaminophen Tab 325 Mg Tab) 650 mg PO Q6HR PRN PRN Reason: Mild Pain or Fever > 100.5 Last Admin: 10/18/20 13:03 Dose: 650 mg Documented by: Albuterol Sulfate (Albuterol Hfa Inhaler) 2 puff INHALATION RT-Q4H [facility] Last Admin: 10/18/20 19:32 Dose: 2 puff Documented by: Albuterol Sulfate (Albuterol Hfa Inhaler) 2 puff INHALATION RT-QID PRN PRN Reason: Shortness Of Breath Or Wheezing Apixaban (Apixaban 5 Mg Tab) 5 mg PO BID [facility] Last Admin: 10/18/20 08:05 Dose: 5 mg Documented by: Artificial Tears (Artificial Tears-Hypromellose Drops 15 Ml Btl) 2 drops BOTH EYES Q4H [facility] Last Admin: 10/18/20 19:50 Dose: 2 drops Documented by: Ascorbic Acid (Ascorbic Acid 500 Mg Tab) 1,000 mg PO DAILY [facility] Last Admin: 10/18/20 08:05 Dose: 1,000 mg Documented by: Chlorhexidine Gluconate (Chlorhexidine Gluconate 15 Ml Cup) 15 ml MUCOUS MEM BID [facility] Last Admin: 10/18/20 08:06 Dose: 15 ml Documented by: Cholecalciferol (Cholecalciferol 25 Mcg (1000 Iu) Tablet) 100 mcg PO DAILY [facility] Last Admin: 10/18/20 08:05 Dose: 100 mcg Documented by: Dexamethasone (Dexamethasone 2 Mg Tab) 6 mg PO DAILY [facility] Last Admin: 10/18/20 08:05 Dose: 6 mg Documented by: Famotidine (Famotidine 20 Mg/2 Ml Vial) 20 mg IV BID [facility] Last Admin: 10/18/20 08:05 Dose: 20 mg Documented by: Furosemide (Furosemide 10 Mg/Ml 4 Ml Vial) 40 mg IV DAILY [facility] Last Admin: 10/18/20 10:27 Dose: Not Given Documented by: Amiodarone HCl 450 mg/ (Dextrose/Water) 250 mls @ 16.667 mls/hr IV .Q15H [facility]; Protocol Last Admin: 10/18/20 17:40 Dose: 0.5 mg/min, 16.667 mls/hr Documented by: Diltiazem HCl 125 mg/ Sodium (Chloride) 125 mls @ 20 mls/hr IV .Q6H15M [facility] Last Admin: 10/18/20 16:50 Dose: 20 mg/hr, 20 mls/hr Documented by: Sodium Chloride (Saline 0.9%) 500 mls @ 20 mls/hr IV .Q24H [facility] Last Admin: 10/18/20 17:59 Dose: Not Given Documented by: Norepinephrine Bitartrate 4 mg (/ Sodium Chloride) 254 mls @ 24.003 mls/hr IV .[id number] [facility]; Protocol Last Admin: 10/18/20 12:25 Dose: Not Given Documented by: Metoprolol Tartrate (Metoprolol Tartrate 50 Mg Tab) 100 mg PO TID [facility] Last Admin: 10/18/20 17:37 Dose: 100 mg Documented by: Vancomycin HCl (Vancomycin Oral Solution 250 Mg/5 Ml Bottle) 250 mg PO Q6HR [facility] Last Admin: 10/18/20 17:38 Dose: 250 mg Documented by: Zinc Sulfate (Zinc Sulfate 220 Mg Cap) 220 mg PO DAILY [facility] Last Admin: 10/18/20 08:05 Dose: 220 mg Documented by: On examination: VITAL SIGNS: 100.7, 168, 25, 124/74, 94% on the ventilator GENERAL APPEARANCE: Sedated, intubated , RESPIRATORY: Respiratory effort increased. Accessory muscles working Rest of the exam per pulmonary and nursing Investigations: October 18: WBC 31.3 hemoglobin 11.9 d-dimer 4.96 potassium 4 creatinine 1110 LDH 2440 CRP 4.5 October 17: WBC 29.4 hemoglobin 11.9 platelets 242 d-dimer 6.12 potassium 4.4 creatinine 1.03 CRP 4.2 C. diff positive October 16: WBC 21.6 hemoglobin 11.2 platelets 480 potassium 4.4 creatinine 1.02 d-dimer 8.4 to CRP 19 alk phos 53 LDH 08/11/2001 Eloisa 15: WBC 21.8 hemoglobin 10.7 platelets 197 d-dimer 8.7 potassium 4.3 creatinine 1.05. Chest x-ray: Bilateral infiltrates October 14: WBC 26.5 hemoglobin 10.6 platelets 178 d-dimer 9.63 ABG with a pH of 7.38 pCO2 57 pO2 of 57 potassium 4.5 bun 65 creatinine 1.12 LDH 3 mL 78 pro- calcitonin 0.17 October 06: WBC 7.4 hemoglobin 13.2 platelets 238 d-dimer 22.8 potassium 5.3 creatinine 0.8 CRP 25.1 Abdominal ultrasound limited: Very limited exam. Possible gallstones. October 05: WBC 5.3 hemoglobin 12.9 platelets 260 d-dimer 3.65 potassium 4.9 creatinine 0.81 CRP 45.6 Chest x-ray film personally reviewed by me-[October 05]: Bilateral infiltrates more so in the lower zone Lower extremity Doppler ultrasound: Negative for DVT 2-D echocardiogram: Concentric LVH, EF 55-60% Admission labs: D-dimer 1.77 CRP 68.2 Sputum: Corynebacterium stratum Urine culture: E. coli Assessment and plan: COVID 19 pneumonia with acute hypoxic respiratory failure,-not improving -Continue with Decadron, Zinc, vitamin C, vitamin D, IV heparin changed to eliquis [ Convolescent Plasma 10/03, Toci X 1 on 10/03 ] Septic. Suspect secondary bacterial not improving IV cefepime -Septic and cardiogenic shock Acute hypoxic respiratory failure secondary to COVID 19 pneumonia,-not improving. Remains on ventilator support, FiO2 50 % Paroxysmal atrial fibrillation, repeated episodes of rapid ventricular rate- currently sinus rhythm. Back into atrial fibrillation-rate remains uncontrolled eliquis. Currently IV Cardizem and IV amiodarone Transaminitis likely secondary to illness -Follow liver enzymes. ultrasound: Poor quality. -Gallstones, asymptomatic Hyponatremia secondary decreased solute intake in addition to water. -Corrected -Morbid obesity with BMI 41 outpatient weight loss -Hyperkalemia Corrected -Acute UTI with cystitis from E. coli On IV cefepime -Legal guardian: Krista patient's sister -Acute C. diff colitis Started on oral vancomycin Prognosis remains guarded. Continue current medication treatment plan. Dr. Shields spoke with patient's family. Placement of tracheostomy and PEG tube ne xt week
[2020-10-19] MEDS: NOREPINEPHRINE 4 MG in SODIUM CHLORIDE 0.9% 250 ML IV SCH ×2 (01:52→11:53)
[2020-10-19] MEDS: ALBUTEROL HFA INHALER INHALATION SCH ×6 (01:59→19:41)
[2020-10-19] MEDS: ARTIFICIAL TEARS-HYPROMELLOSE DROPS 15 ML BTL BOTH EYES SCH ×5 (04:11→17:22)
[2020-10-19 04:36] LABS: Anisocytosis Slight; Basophils % (A) 0 %; Eosinophils # (A) 0.1 k/uL (0-0.7); Eosinophils % (A) 0 %; HCT 35.9 % (34.0-46.0); HGB 11.2 gm/dL (11.4-16.0); Lymphocytes # (A) 0.5 k/uL (1.0-4.8); Lymphocytes % (A) 2 %; MCH 28.2 pg (25.0-35.0); MCHC 31.4 g/dL (31.0-37.0); MCV 89.7 fL (80.0-100.0); Mean Platelet Volume 8.1; Monocytes # (A) 0.9 k/uL (0-1.0); Monocytes % (A) 4 %; Neutrophils # (A) 25.3 k/uL (1.3-7.7); Neutrophils % (A) 94 %; Platelet Count 310 k/uL (150-450); RDW 16.9 % (11.5-15.5)
[2020-10-19 04:54] LABS: Albumin 2.9 g/dL (3.5-5.0); C Reactive Protein 3.6 mg/dL (<1.0); Calcium 7.8 mg/dL (8.4-10.2); Total Bilirubin 0.6 mg/dL (0.2-1.3); Total Protein 5.4 g/dL (6.3-8.2)
[2020-10-19 05:14] LABS: ABG Base Excess 2.6 mmol/L; ABG HCO3 28 mmol/L (21-25); ABG Oxygen Saturation 97.6 % (94-97); ABG PCO2 45 mmHg (35-45); ABG PO2 89 mmHg (83-108); ABG TCO2 29 mmol/L (19-24); Allen Test Performed? Yes
[2020-10-19] MEDS: VANCOMYCIN ORAL SOLUTION 250 MG/5 ML BOTTLE PO SCH ×4 (05:50→18:38)
[2020-10-19] MEDS: DILTIAZEM 125 MG in SODIUM CHLORIDE 0.9% 100 ML IV SCH ×3 (06:32→19:50)
[2020-10-19] MEDS: ASCORBIC ACID 500 MG TAB PO SCH (08:06)
[2020-10-19] MEDS: METOPROLOL TARTRATE 50 MG TAB PO SCH ×3 (08:06→23:15)
[2020-10-19] MEDS: CHLORHEXIDINE GLUCONATE 15 ML CUP MUCOUS MEM SCH ×2 (08:07→23:16)
[2020-10-19] MEDS: dexAMETHasone 2 MG TAB PO SCH (08:07)
[2020-10-19] MEDS: CHOLECALCIFEROL 25 MCG (1000 IU) TABLET PO SCH (08:07)
[2020-10-19] MEDS: ZINC SULFATE 220 MG CAP PO SCH (08:07)
[2020-10-19] MEDS: FAMOTIDINE 20 MG/2 ML VIAL IV SCH ×2 (08:07→23:16)
[2020-10-19] MEDS: FUROSEMIDE 10 MG/ML 4 ML VIAL IV SCH (08:07)
--- NOTE | 2020-10-19 08:27 | XR ---
EXAMINATION TYPE: XR chest 1V portable DATE OF EXAM: 10/19/2020 COMPARISON: Chest x-ray 10/18/2020 HISTORY: Covid pneumonia, intubated TECHNIQUE: Single frontal view of the chest is obtained. FINDINGS: Endotracheal tube, NG tube, left central venous catheter are stable and overlying appropri ate positions. Bilateral airspace disease is again seen. No evident pneumothorax or pleural effusion, cardiac mediastinal silhouette is stable. IMPRESSION: Findings consistent with patient's history of Covid pneumonia.
[2020-10-19] MEDS: APIXABAN 5 MG TAB PO SCH (09:44)
--- NOTE | 2020-10-19 10:46 | P.PN ---
Subjective This is a 60-year-old female with significant past medical history for former nicotine dependce, who presents with history failure related to COVID-19 infection pneumonia. She was diagnosed with COVID 09/23/2020. She does not follow with a filling operator. We are following secondary to atrial fibrillation and atrial flutter with episodes of RVR. She was found to be in SVT and received 2 doses of adenosine, repeat EKG revealed A fib with RVR. She has been initiated on Cardizem drip, Amiodarone drip, heparin drip. She converted to sinus mechanism, Cardizem was discontinued and patient started on PO metoprolol. She started to have episodes of tachycardia consistent with atrial flutter and atrial fibrillation with RVR. She was re-initiated on Cardizem drip, Amiodarone drip, heparin drip. She continues to be in atrial flutter. She has been having episodes of rapid ventricular response when she is febrile. Her blood pressure has been stable. She was weaned off sedation 10/17/20. C. diff positive. Laboratory data reviewed, WBC 27, hemoglobin 11.2, platelets 310, sodium 143, potassium 4.0, creatinine 1.16 (1.10 yesterday). Currently maintained on amiodarone 0.5mg/min, Eliquis 5 mg twice a day, Cardizem 20 mg per hour, Levo 0.02mcg/kg/hr is being weaned off and metoprolol 100 mg three times a day. 24 hour urine output 3140 mL's. Echocardiogram 10/03/20: EF 55-60%, trace MR, trace TR. GENERAL: No acute distress, maintained on mechanical ventilation AC FiO2 50, PEEP 10. Patient has ET and OG tube BP 94/54 HR 83, Temp 98.9 F, SpO2 96% ASSESSMENT Paroxysmal atrial fibrillation/typical atrial flutter COVID 19 Acute hypoxic respiratory failure Acute Kidney Injury PLAN Continue amiodarone drip Continue cardizem drip Continue lopressor as ordered. Continue eliquis for thromboembolic protection. Plan is for patient to undergo Trach and PEG tube placement Nurse Practitioner note has been reviewed, I agree with a documented findings and plan of care. Patient was seen and examined. Objective - Vital Signs Vital signs: Vital Signs Temp 98.9 F 10/19/20 08:00 Pulse 83 10/19/20 10:00 Resp 24 10/19/20 10:00 BP 105/64 10/19/20 10:00 Pulse Ox 96 10/19/20 10:00 Intake & Output 10/18/20 10/19/20 10/19/20 18:59 06:59 18:59 Intake Total 0622.245 7908 476.972 Output Total 1080 2060 595 Balance 307.910 -1031 -118.028 Weight 126.7 kg Intake: IV 401 275 54 0.9 Normal Saline @ KVO 260 220 40 0.9 Normal Saline 41 55 14 Pressure Bags Cefepime 2 gm In Sodium 100 Chloride 0.9% 100 ml @ 25 mls/hr IVPB Q12HR [facility] Rx #:[id number] Intake, IV Titration 480.910 232 172.972 Amount Amiodarone 450 mg In 250 Dextrose 5% in Water 250 ml @ 0.5 MG/MIN 16.667 mls/hr IV .Q15H [facility] Rx#: [id number] Diltiazem 125 mg In 200.667 232 Sodium Chloride 0.9% 100 ml @ 20 MG/HR 20 mls/hr IV .Q6H15M [facility] Rx#: [id number] Norepinephrine 4 mg In 30.243 0 112.972 Sodium Chloride 0.9% 250 ml @ 0.05 MCG/KG/MIN 24. 003 mls/hr IV .[id number] [facility] Rx#:[id number] Sodium Chloride 0.9% 500 60 ml 500 ml @ 20 mls/hr IV .Q24H [facility] Rx#:[id number] Tube Feeding 416 352 160 Other 90 170 90 Output: Urine 1080 1060 595 Stool 1000 Other: Voiding Method Indwelling Catheter Indwelling Catheter Indwelling Catheter ABP, PAP, CO, CI - Last Documented Arterial Blood Pressure 94/54 - Labs CBC & Chem 7: 10/19/20 04:15 10/19/20 04:15 Labs: Abnormal Lab Results - Last 24 Hours (Table) 10/19/20 10/19/20 10/19/20 Range/Units 04:15 04:15 04:15 WBC 27.0 H (3.8-10.6) k/uL Hgb 11.2 L (11.4-16.0) gm/dL RDW 16.9 H (11.5-15.5) % Neutrophils # 25.3 H (1.3-7.7) k/uL Lymphocytes # 0.5 L (1.0-4.8) k/uL D-Dimer 3.66 H (<0.60) mg/L FEU ABG HCO3 (21-25) mmol/L ABG Total CO2 (19-24) mmol/L ABG O2 Saturation (94-97) % Chloride 112 H (98-107) mmol/L BUN 84 H (7-17) mg/dL Creatinine 1.16 H (0.52-1.04) mg/dL Glucose 170 H (74-99) mg/dL Calcium 7.8 L (8.4-10.2) mg/dL AST 65 H (14-36) U/L ALT 144 H (4-34) U/L Lactate Dehydrogenase 2199 H (313-618) U/L C-Reactive Protein 3.6 H (<1.0) mg/dL Total Protein 5.4 L (6.3-8.2) g/dL Albumin 2.9 L (3.5-5.0) g/dL 10/19/20 Range/Units 05:07 WBC (3.8-10.6) k/uL Hgb (11.4-16.0) gm/dL RDW (11.5-15.5) % Neutrophils # (1.3-7.7) k/uL Lymphocytes # (1.0-4.8) k/uL D-Dimer (<0.60) mg/L FEU ABG HCO3 28 H (21-25) mmol/L ABG Total CO2 29 H (19-24) mmol/L ABG O2 Saturation 97.6 H (94-97) % Chloride (98-107) mmol/L BUN (7-17) mg/dL Creatinine (0.52-1.04) mg/dL Glucose (74-99) mg/dL Calcium (8.4-10.2) mg/dL AST (14-36) U/L ALT (4-34) U/L Lactate Dehydrogenase (313-618) U/L C-Reactive Protein (<1.0) mg/dL Total Protein (6.3-8.2) g/dL Albumin (3.5-5.0) g/dL Microbiology - Last 24 Hours (Table) 10/12/20 15:24 Blood Culture - Final Blood No Growth after 144 hours
[2020-10-19 11:10] LABS: Ferritin 1664.8 ng/mL (10.0-291.0)
--- NOTE | 2020-10-19 11:15 | P.PN ---
<Mora Monk - Last Filed: 10/19/20 11:06> Subjective Progress Note Date: 10/19/20 CHIEF COMPLAINT: Respiratory failure HISTORY OF PRESENT ILLNESS: Patient remains in the ICU and intubated. She is admitted to the hospital with an acute hypoxic respiratory failure secondary to acute COVID-19 pneumonia and evidence of ARDS. Patient also had new onset of atrial fibrillation with rapid ventricular response and had been placed on Eliquis. She is followed by cardiology. She's also on amiodarone and Cardizem drip. Afebrile WBC 27 hemoglobin 11.2 platelets 310 albumin 2.9 PHYSICAL EXAM: VITAL SIGNS: Reviewed. GENERAL: Well-developed in no acute distress. HEENT: No sclera icterus. Moist buccal mucosa. Head is atraumatic, normocephalic. ABDOMEN: Soft. Nondistended. Nontender. NEUROLOGIC: Patient is intubated ASSESSMENT: 1. Acute hypoxic respiratory failure secondary to COVID-19 pneumonia with prolo nged need for mechanical ventilation 2. Moderate protein calorie malnutrition 3. Paroxysmal atrial fibrillation 4. C. diff colitis PLAN: -Patient scheduled for tracheostomy and PEG tube placement tomorrow, 10/20/[address] Villa -Keep Eliquis on hold -Hold tube feedings after midnight -Continue ICU management -Continue supportive Physician Demurrage Worker note has been reviewed by physician. Signing provider agrees with the documented findings, assessment, and plan of care. Objective - Vital Signs Vital signs: Vital Signs Temp 98.9 F 10/19/20 08:00 Pulse 83 10/19/20 10:00 Resp 24 10/19/20 10:00 BP 105/64 10/19/20 10:00 Pulse Ox 96 10/19/20 10:00 Intake & Output 10/18/20 10/19/20 10/19/20 18:59 06:59 18:59 Intake Total 1511.697 0402 476.972 Output Total 1080 2060 595 Balance 307.910 -1031 -118.028 Weight 126.7 kg Intake: IV 401 275 54 0.9 Normal Saline @ KVO 260 220 40 0.9 Normal Saline 41 55 14 Pressure Bags Cefepime 2 gm In Sodium 100 Chloride 0.9% 100 ml @ 25 mls/hr IVPB Q12HR [facility] Rx #:[id number] Intake, IV Titration 480.910 232 172.972 Amount Amiodarone 450 mg In 250 Dextrose 5% in Water 250 ml @ 0.5 MG/MIN 16.667 mls/hr IV .Q15H [facility] Rx#: [id number] Diltiazem 125 mg In 200.667 232 Sodium Chloride 0.9% 100 ml @ 20 MG/HR 20 mls/hr IV .Q6H15M [facility] Rx#: [id number] Norepinephrine 4 mg In 30.243 0 112.972 Sodium Chloride 0.9% 250 ml @ 0.05 MCG/KG/MIN 24. 003 mls/hr IV .[id number] [facility] Rx#:[id number] Sodium Chloride 0.9% 500 60 ml 500 ml @ 20 mls/hr IV .Q24H [facility] Rx#:[id number] Tube Feeding 416 352 160 Other 90 170 90 Output: Urine 1080 1060 595 Stool 1000 Other: Voiding Method Indwelling Catheter Indwelling Catheter Indwelling Catheter ABP, PAP, CO, CI - Last Documented Arterial Blood Pressure 94/54 - Labs CBC & Chem 7: 10/19/20 04:15 10/19/20 04:15 Labs: Abnormal Lab Results - Last 24 Hours (Table) 10/19/20 10/19/20 10/19/20 Range/Units 04:15 04:15 04:15 WBC 27.0 H (3.8-10.6) k/uL Hgb 11.2 L (11.4-16.0) gm/dL RDW 16.9 H (11.5-15.5) % Neutrophils # 25.3 H (1.3-7.7) k/uL Lymphocytes # 0.5 L (1.0-4.8) k/uL D-Dimer 3.66 H (<0.60) mg/L FEU ABG HCO3 (21-25) mmol/L ABG Total CO2 (19-24) mmol/L ABG O2 Saturation (94-97) % Chloride 112 H (98-107) mmol/L BUN 84 H (7-17) mg/dL Creatinine 1.16 H (0.52-1.04) mg/dL Glucose 170 H (74-99) mg/dL Calcium 7.8 L (8.4-10.2) mg/dL AST 65 H (14-36) U/L ALT 144 H (4-34) U/L Lactate Dehydrogenase 2199 H (313-618) U/L C-Reactive Protein 3.6 H (<1.0) mg/dL Total Protein 5.4 L (6.3-8.2) g/dL Albumin 2.9 L (3.5-5.0) g/dL 10/19/20 Range/Units 05:07 WBC (3.8-10.6) k/uL Hgb (11.4-16.0) gm/dL RDW (11.5-15.5) % Neutrophils # (1.3-7.7) k/uL Lymphocytes # (1.0-4.8) k/uL D-Dimer (<0.60) mg/L FEU ABG HCO3 28 H (21-25) mmol/L ABG Total CO2 29 H (19-24) mmol/L ABG O2 Saturation 97.6 H (94-97) % Chloride (98-107) mmol/L BUN (7-17) mg/dL Creatinine (0.52-1.04) mg/dL Glucose (74-99) mg/dL Calcium (8.4-10.2) mg/dL AST (14-36) U/L ALT (4-34) U/L Lactate Dehydrogenase (313-618) U/L C-Reactive Protein (<1.0) mg/dL Total Protein (6.3-8.2) g/dL Albumin (3.5-5.0) g/dL Microbiology - Last 24 Hours (Table) 10/12/20 15:24 Blood Culture - Final Blood No Growth after 144 hours <Jamal Villa - Last Filed: 10/19/20 16:55> Subjective As above. Consult for tracheostomy and PEG tube placement. Patient with C. diff colitis undergoing appropriate antibiotic therapy. Tentatively plan trach eostomy and PEG tube placement tomorrow. Risks reviewed with the patient's sister by phone. Risks were noted to include but not limited to bleeding, infection, catheter misplacement, respiratory failure, pneumothorax, bowel injury, and . She understands and wishes to proceed. Also discussed our plans with her family member who is a surgical box spring frame builder in [place]. Objective - Vital Signs Vital signs: Vital Signs Temp 99.5 F 10/19/20 12:00 Pulse 88 10/19/20 15:00 Resp 24 10/19/20 15:00 BP 90/59 10/19/20 15:00 Pulse Ox 96 10/19/20 15:00 Intake & Output 10/18/20 10/19/20 10/19/20 18:59 06:59 18:59 Intake Total 8715.195 6462 1188.639 Output Total 1080 2060 1245 Balance 307.910 -1031 -56.361 Weight 126.7 kg 126.7 kg Intake: IV 401 275 72 0.9 Normal Saline @ KVO 260 220 40 0.9 Normal Saline 41 55 32 Pressure Bags Cefepime 2 gm In Sodium 100 Chloride 0.9% 100 ml @ 25 mls/hr IVPB Q12HR [facility] Rx #:[id number] Intake, IV Titration 480.910 232 644.639 Amount Amiodarone 450 mg In 250 250 Dextrose 5% in Water 250 ml @ 0.5 MG/MIN 16.667 mls/hr IV .Q15H [facility] Rx#: [id number] Diltiazem 125 mg In 200.667 232 121.667 Sodium Chloride 0.9% 100 ml @ 20 MG/HR 20 mls/hr IV .Q6H15M [facility] Rx#: [id number] Norepinephrine 4 mg In 30.243 0 112.972 Sodium Chloride 0.9% 250 ml @ 0.05 MCG/KG/MIN 24. 003 mls/hr IV .[id number] [facility] Rx#:[id number] Sodium Chloride 0.9% 500 160 ml 500 ml @ 20 mls/hr IV .Q24H [facility] Rx#:[id number] Tube Feeding 416 352 352 Other 90 170 120 Output: Urine 1080 1060 1245 Stool 1000 Other: Voiding Method Indwelling Catheter Indwelling Catheter Indwelling Catheter ABP, PAP, CO, CI - Last Documented Arterial Blood Pressure 102/55 - Labs CBC & Chem 7: 10/19/20 04:15 10/19/20 04:15 Labs: Abnormal Lab Results - Last 24 Hours (Table) 10/19/20 10/19/20 10/19/20 Range/Units 04:15 04:15 04:15 WBC 27.0 H (3.8-10.6) k/uL Hgb 11.2 L (11.4-16.0) gm/dL RDW 16.9 H (11.5-15.5) % Neutrophils # 25.3 H (1.3-7.7) k/uL Lymphocytes # 0.5 L (1.0-4.8) k/uL D-Dimer 3.66 H (<0.60) mg/L FEU ABG HCO3 (21-25) mmol/L ABG Total CO2 (19-24) mmol/L ABG O2 Saturation (94-97) % Chloride 112 H (98-107) mmol/L BUN 84 H (7-17) mg/dL Creatinine 1.16 H (0.52-1.04) mg/dL Glucose 170 H (74-99) mg/dL Calcium 7.8 L (8.4-10.2) mg/dL Ferritin 1664.8 H (10.0-291.0) ng/mL AST 65 H (14-36) U/L ALT 144 H (4-34) U/L Lactate Dehydrogenase 2199 H (313-618) U/L C-Reactive Protein 3.6 H (<1.0) mg/dL Total Protein 5.4 L (6.3-8.2) g/dL Albumin 2.9 L (3.5-5.0) g/dL 10/19/20 Range/Units 05:07 WBC (3.8-10.6) k/uL Hgb (11.4-16.0) gm/dL RDW (11.5-15.5) % Neutrophils # (1.3-7.7) k/uL Lymphocytes # (1.0-4.8) k/uL D-Dimer (<0.60) mg/L FEU ABG HCO3 28 H (21-25) mmol/L ABG Total CO2 29 H (19-24) mmol/L ABG O2 Saturation 97.6 H (94-97) % Chloride (98-107) mmol/L BUN (7-17) mg/dL Creatinine (0.52-1.04) mg/dL Glucose (74-99) mg/dL Calcium (8.4-10.2) mg/dL Ferritin (10.0-291.0) ng/mL AST (14-36) U/L ALT (4-34) U/L Lactate Dehydrogenase (313-618) U/L C-Reactive Protein (<1.0) mg/dL Total Protein (6.3-8.2) g/dL Albumin (3.5-5.0) g/dL Microbiology - Last 24 Hours (Table) 10/12/20 15:24 Blood Culture - Final Blood No Growth after 144 hours
--- NOTE | 2020-10-19 11:26 | P.PN ---
Subjective Progress Note Date: 10/19/20 Principal diagnosis: Acute hypoxic respiratory failure secondary to acute COVID 19 pneumonitis This is a 60-year-old female with no previous significant medical history, on 09/23/20, she was diagnosed with acute covid 19 infection. Patient took hovp-kvo-mvmbdua medications. And yesterday she presented to the ER and she was found in atrial fibrillation with RVR. And her chest x-ray showed diffuse interstitial pneumonitis. Patient was found to have elevated inflammatory mar kers with LDH of 2894, and C-reactive protein of 8.2. Considering the patient had over 1 week of symptoms, she was felt to be outside the window for REM. Her atrial fibrillation and RVR was treated with Cardizem and later metoprolol orally. She was also placed on heparin. Chest x-ray was quite concerning. Patient required placement on a nonrebreather mask. Later placed on high flow airvo with a non-rebreather mask, and her O2 saturations remained marginal around 88-93%. I saw this patient this morning, and I recommended immediate transfer to the ICU. Chest x-ray was reviewed and it is consistent with acute Covid 19 pneumonitis. Her d-dimer was 0.98.CBC was relatively normal. LDH is up to 3596. And C-reactive protein is up to 76.8 after evaluating the patient, I recommended convalescent plasma. I also recommended actemra. Patient was reevaluated today on 10/04/2020, patient remains in the ICU, she is presently on BiPAP with IPAP of 14 EPAP of 6, and FiO2 is 100%. We ordered actemra and convalescent plasma on this patient. And I believe she received both. Patient was out of the window for REM. Remains on the Covid 19 cocktail. CBC is relatively normal d-dimer 0.73 lites are normal her inflammatory markers are high with LDH of 09/05/2005 and C-reactive protein of 75. Clinically the patient is about the same, not much change from yesterday, she has intermittent cough, and shortness of breath with any activity. Her pulmonary status is marginal at best. On 10/05/2020 and patient seen in follow-up in the intensive care unit. She remains on BiPAP support with pressures of 14/60 FiO2 of 100% with a pulse ox between 90-97%, afebrile, a bit hypertensive, with systolic between 160-180 and diastolic in 90-100. Patient is status post Tocilizumab 800 mg IV piggyback infusion on 10/03/2020 and she has received 1 unit of convalescent plasma on 10/03/2020. Continues on Decadron 6 mg daily, Lovenox 40 mg daily, Pepcid, IV fluids 0.9 normal saline infusing at 25 ML per hour. Today's labs have been reviewed, d-dimer 3.6, B1 is 32, creatinine 0.81, CO2 is 33, the rest of the electrolytes were unremarkable, ferritin level is 1414, AST is 79, which has improved, and ALT is 41 which is relatively stable, up slightly from 39, but overall improving, LDH remains significantly elevated at 3977, CRP is 45.6. Chest x-ray shows diffuse bilateral infiltrates. On 10/07/1999 patient seen in follow-up in the intensive care unit. She remains on BiPAP support on which she is most of the time, with pressures of 14/6, 100% FiO2. Pulse ox is 95%, low-grade fevers with a temp of 99.4 axillary this morning, hemodynamically patient remains stable, not on any drips, 0.9 normal saline at 20 ML per hour, today's d-dimer is up to 22.82, and the patient was started on therapeutic doses of Lovenox 120 mg twice daily, however we will switch the patient to 0.5 mg/kg dosing twice daily. Today's inflammatory markers are continue to trend up, LDH is up to 4670, and a CK is 607, and CRP is down some to 25.1. Abdominal ultrasound was completed in view of elevated liver enzymes and it was a severely limited exam suggesting mostly a collapsed gallbladder containing multiple gallstones, bile duct measures were within normal limits. Today's chest x-ray showed diffuse pleural parenchymal changes correlating with diffuse pneumonia. Hemodynamically patient has been stable, maintaining normal sinus rhythm, echocardiogram showed normal LV function without significant valvular abnormalities, cardiology is following and has been adjusting beta blockers for better heart rate and blood pressure control. On today's evaluation of 10/12/2020 seeing this patient for a follow-up. Is a 60-year-old male patient with COVID 19 pneumonia. Pneumonia and secondary hypoxic respiratory failure. The patient was intubated and placed on a mechanical ventilator. The patient was admitted to the ICU on 10/03/2020 and the patient was extubated on 10/07/2020. Initially the patient was on high flow oxygen which she failed and subsequently his condition progressed and the patient has to be intubated and placed on a mechanical ventilator. The patient has already received 2 units of convalescent plasma, the patient has received Tocilizumab and the patient is currently on steroids. On today's evaluation, the patient is sedated with propofol at 45 mcg/kg per minute and the patient is calm and comfortable successful mechanical ventilator. Propofol is running at 45 mics respiratory per minute. The patient was paralyzed earlier with Nimbex and this was discontinued and he had to be placed back and the patient is currently back on nimbex 1 mcg/kg per minute.. The patient is also intubated on a mechanical ventilator within assist-control at the rate of 30, FiO2 of 60%, PEEP 16 with a tidal volume of 400. Blood gases were noted. The ABG from this morning showed a pH of 7.32 with a pCO2 of 62 and pO2 of 122. The chest x-ray from today is unchanged and the patient has bilateral pulmonary infiltrates more so on the right lower lobe. ET tube is in a good location. As for the blood work, the patient has a white cell count of 23 with a hemoglobin of 12 and a d-dimer of 8.66, BUN is a 50 with a creatinine of 0.9, LDH level is 4302 and a CRP level is at 9.4. The patient is hemodynamically stable on no pressors. Patient was being performed earlier and currently is in a supine body position. The chest x-ray from today showing diffuse breath and pulmonary infiltrates and ET tube is in a good location. The patient is on a enteral feeding with vital high protein at the rate of 40 mL an hour. The neck fluid balance over the past 24 hours is -226 mL and there are no signs of any significant fluid overload. Producing adequate amount of urine output. The cardiac rhythm is A. fib/flutter and the patient is currently on Eliquis. The peak airway pressure is 34 anesthetic pressures around 33. On 10/13/2020 on seeing the patient for a follow-up. The patient remains in intensive care unit. This is a 60-year-old female patient with Covid interrelated pneumonia with hypoxic respiratory failure. The patient has been on a mechanical ventilator since 10/07/2020. The patient currently is on propofol which is running at 60 mcg/kg per minute and the patient is also on paralytics which is running in the form of Nimbex at 1 mcg/kg per minute. Attempts to wean off the Nimbex failed and the patient had to be paralyzed again. Meanwhile, the patient remains on a mechanical ventilator, assist control rate of 30 with an FiO2 of 40% and a PEEP of 16 and a tidal volume of 400. The blood gases from today shows a pH of 7.33 with a pCO2 of 61 and pO2 of 71. The peak airway pressures are 33 and a plateau airway pressure is 31. The chest x-ray from today show an stable bilateral pulmonary infiltrates, with right midlung and left lower lobe pulmonary infiltration and the chest x-ray findings are essentially stable since yesterday without any significant interval change. Her potassium level was at 5.7 and his morning and based on that the patient was given a dose of Kayexalate 30 Repeat potassium is pending for now. Meanwhile, the patient remains hemodynamically stable. The patient is on levo fed, at 0.06 mcg/kg per minute. This should be gradually weaned off today. The patient is on enteral feeding for nutritional support and the patient is on vital high protein at 40 mL an hour. The patient remains in episodes of atrial fibrillation/flutter and this morning is she is on Cardizem at 10 mg an hour and the patient was loaded again with amiodarone and maintained on a infusion of amiodarone at 0.5 she'll be switched back to oral amiodarone today. She remains on Eliquis 5 mg by mouth twice a day. Empiric antibiotic coverage with IV cefepime. She remains on Decadron 6 mg IV every 24 hours. IV fluids with normal saline at the rate of 25 mL an hour. The fluid balance over the past 24 hours has been -49 mL. 10/14/2020, I'm seeing the patient for a follow-up. The patient was intubated and she has been on a mechanical ventilator since 10/07/2020. I'm seeing her today in follow-up. She remains on propofol at 45 mcg/kg per minute and the patient is currently on Nimbex at 1 mcg/kg per minute. She is well sedated and paralyzed. Paralytic Cardizem being given to her daily basis. She failed yesterday and the same of discharge today. She had a mechanical ventilator assist control mode at the rate of 30 with an FiO2 of 40% and a PEEP of 12 with tidal volume of 400. Blood gases from today shows a pH of 7.3388 with a pCO2 of 57 and pO2 of 57. As for the chest x-ray, I do not see any interval change in the patient has diffuse bilateral pulmonary infiltrates. Peak airway pressure is 31 with a static pressure of 26. IV fluids with normal saline at the rate of 25 mL an hour. She is still having issues with atrial fibrillation. She is currently on a combination of Cardizem drip at the rate of 15 mg an hour and amiodarone at 0.5 mg per minute and metoprolol at a dose of 100 mg by mouth 3 times a day. Earlier this morning, the patient was still tachycardic and the patient was being considered for digoxin. Nevertheless, her heart rate currently is down at 9365 per minute. Earlier this morning it was in the 130s up to 160 range. Otherwise, the patient is on no pressors since yesterday, the patient's electrolytes today show improvement in her potassium down to 4.7 being given Kayexalate. BUN 65 with a creatinine of 1.1. The LDH level is 3378 which is still elevated although lower compared to yesterday and his CRP level is at 7.7. Serum bicarb is 34.. Calcitonin levels of 0.17 and the patient is currently on empiric antibiotic coverage with cefepime. Urine culture was showing gram-negative bacillus and the final culture are still pending for now. We will cefepime gram-negative bacilli fluid: Balance balance is positive of 1 L over the past 24 hours. 2020, the patient is being seen for a follow-up. He remains intubated on a mechanical ventilator. Currently on propofol running at 50 mcg/kg per minute and the patient wishes currently off Nimbex and the patient was taken off the paralytics yesterday. Meanwhile, the patient remains on a mechanical ventilator on assist control mode and she is on assist-control at the rate of 30 with an FiO2 of 50% and a PEEP currently is at 12 with a tidal volume of 400. The peak and static pressures are lower with a levels of 28 and 19 respectively. The blood gases from today shows a pH of 7.41 with a pCO2 of 53 and pO2 of 77 and t he patient's agitation is improved. The chest x-ray from today showing diffuse bilateral pulmonary infiltrates, unchanged with orotracheal tube being in a good location. The patient is being treated with Decadron 6 mg IV every 24 hours. She remains on Eliquis 5 mg by mouth twice a day. She has a d-dimer of 8.7 from today, slightly lower and the rest of the inflammatory markers are still pending for now. Meanwhile, hemodynamically, the patient is stable and she is on no pressors. Her atrial fibrillation/flutter is under much better control. She is currently in a flutter rhythm. Amiodarone is running at 0.5 mg per minute and the patient is also on metoprolol 100 mg by mouth 3 times a day and Cardizem at 15 mg an hour. The plan is to continue these per cardiology. The patient is also on empiric antibiotic coverage with IV cefepime. The pro calcitonin level was 0.17. The patient is afebrile. No respiratory secretions. Cultures of been all negative. I'm inclined to continue the antibiotics as the patient has E. coli in her urine off for 10/12. 10/16/2020, the patient remains on a mechanical ventilator. Unfortunately, she is not doing any much progress. She was taken off the Nimbex and she is still on her lipase for now. She is also on propofol running at 50 mcg/kg per minute. Unfortunately, she was having issues with oxygen desaturation yesterday. I had to make some ventilator changes and currently she is an assist-control mode at a rate of 30 with a FiO2 of 70% and a PEEP of 10 and a tidal volume of 400. The blood gases from this morning showed a pH of 7.4 with a pCO2 of 50 and pO2 of 89. Chest x-ray is unchanged with diffuse bilateral pulmonary infiltrates. She remains on Decadron 6 mg by mouth. She remains also and a A. fib flutter rhythm and after being controlled for a while, the patient went back to become tachycardic again despite being on a combination of metoprolol 100 mg 3 times a day, Cardizem drip and then amiodarone drip. She still has a coagulation with Eliquis. Discussed with cardiology. Not a candidate for cardioversion. IV antibiotics is emphatic and the patient's Prograf level is low at 0.17. She is afebrile. She is on enteral feeding for nutritional support and she is currently on vital high protein at the rate of 40 mL an hour. She has E. coli in the urine. She also had abnormal inflammatory markers with an LDH of 08/11/2001, CRP of 19, and a d-dimer level of 8.4. Around 7:00 this morning, the patient was becoming hypotensive and she was started on low-dose norepinephrine which is running at 5 g per minute. Her net fluid balance is - 2.6 L over the past 24 hours and the patient is receiving Lasix 40 mg IV push every 12 hours. She is also having some diarrhea and she has a fecal management system in place. Stool for C. diff will be checked before the injury. Note that the patient is receiving IV cefepime that was initially emphatic and later on antibiotic was kept on board because of E. coli in the urine. She also has corynebacterium in the sputum, a colonizer. 10/17/2020, the patient is being seen for a follow-up. She is on propofol and she remains off Nimbex. Propofol is running at 50 mcg/kg per minute. She is also on assist control mode of ventilation on a rate of 24, tidal volume of 450, FiO2 of 50% and a PEEP of 10. Peak airway pressure is 31. Static pressure is 2 8. Blood gases showed a pH of 7.43 with a pCO2 of 43 and pO2 of 63. She is breathing comfortably on a mechanical ventilator. The chest x-ray from today is showing some limited infiltration in lung bases left more than right. Orotracheal tube is in a good location. Comparing chest x-rays, she has marked improvement in the infiltration is noted on the right compared to the earlier chest x-ray from yesterday. Left side remains essentially unchanged. She is off paralytics. She remains in atrial fibrillation. Rate has been fluctuating. After being tachycardic for it some time, she improved and currently she is back having some ongoing tachycardia. Her heart rate Cardizem 150. The patient remains on amiodarone drip at 0.5 mg per minute that she is also on Cardizem drip at 15 mg an hour. The patient is also on Eliquis for long-term and coagulation regarding the ongoing atrial fibrillation. She remains on metoprolol 100 mg by mouth 3 times a day for rate control. Note that the p atient had become also hypotensive and the patient was started on norepinephrine infusion at the low-dose of 0.02 mics per kilogram per minute is being gradually weaned off. She is receiving enteral feeding for nutritional support with vital high protein at the rate of 40 mL an hour. For that overall fluid balance over the past 24 hours has been -2.1 L. The patient remains on Lasix 40 mg of push every 12 hours. She was having liquidy stool/bowel movements and the patient was further testing and she checked positive for C. diff and the patient was started on oral vancomycin. Note that her antibiotic coverage was with IV cefepime and this was essentially an empiric antibiotic coverage. Was found to have gram-negative UTI with Ecoli and the plan was to continue the antibiotics for a total of 5 days. The pro calcitonin level from 10/14/2020 WAS 0.17. FOR THE CORYNEBACTERIUM, IN THE SPUTUM, THIS IS LIKELY A COLONIZER. 10/18/2020, the patient has been off sedation since yesterday at 2 PM. Neurologically, she is still not awake. She may have some reflexes with deep painful stimulation such as grimacing. She is not withdrawing. Note that the patient has taken significant amount of sedation during her hospitalization and this may be a residual drug effect. She is on mechanical ventilator. On today's evaluation, she is on assist-control at the rate of 44 with a tidal vo lume of 450 and FiO2 of 50% with a PEEP of 10. Peak and static pressures are 26 and 24 respectively. Blood gases showed a pH of 7.37 with a pCO2 of 47 and pO2 of 80. Chest x-ray from today showing bilateral multifocal areas of reticular another opacities and infiltrates consistent with COVID-19 related pneumonia/ARDS. The patient is not having any significant orotracheal secretions. I had a lengthy discussion with the family and I discussed the case with her sister and the daughter and the [id number] and we have made decisions to proceed with a PEG and trach and the surgeon was going through the procedure will be up to the discretion of the family. The patient meanwhile is an atrial fibrillation. The rate is controlled at the rate of 116 and the patient is currently on anticoagulation withEliquis 5 mg by mouth twice a day. In terms of rate control she is still on Cardizem drip at 20 mg an hour and she is also on amiodarone at 0.5 mg per minute. She is also on Lopressor 100 mg by mouth 3 times a day. Cardiology rounded on the patient and he wanted to keep the same medications for now. The patient is also being diuresis with IV Lasix patient is receiving 40 mg IV every 12 hours. Once that is improving and the patient continues to be a negative fluid balance.Fluid balance was -5 94 mL over the past 24 hours. Meanwhile, the BUN is at 72 and the creatinine is at 1.1. Her inflammatory markers regarding COVID-19 showed a LDH level of 2440 on the d- dimer currently is at 4.96. CRP is at 4.5. She is receiving enteral feeding for nutritional support in the form of vital high protein at the rate of 32 mL an hour. She was having liquidy stool and this turned out to be consistent with C. diff colitis. She is currently on oral vancomycin. The diarrhea has slowed down since yesterday. No fever. The white cell count is currently elevated at 31. She is on IV cefepime regarding E. coli in her urine. She remains on a low dose of norepinephrine infusion at 0.02 micrograms per kilogram per minute. On 10/19/2020 patient seen in follow-up in the intensive care unit, patient has been off sedation for the last 2 days, and she remains unresponsive, and patient does not move extremities, at times she does withdraw to deep painful stimuli, has not open eyes to voice. She remains on mechanical ventilator support with assist control mode of ventilation, with a rate of 24, tidal volume is 450, FiO2 of 50%, and PEEP of 10. She is intubated with a #8 endotracheal tube, 2 6 at the lip, peak airway pressures 27, her static pressure is 22. Currently she is on amiodarone at 0.5 mg per minute, and she remains in atrial fibrillation with a heart rate which is better controlled at 83-98 BPM, blood pressure stable at 105/64, and patient is not requiring any vasopressor support. 0.9 normal saline is at a rate of 20 ML per hour, Cardizem drip is currently running at 20 mg per hour, patient was started on Eliquis for anticoagulation which is currently on hold for tracheostomy and PEG tube placement. Apparently the family got back to nursing staff and they are requesting Dr. Villa for surgical consultation for trach PEG tube placement, and they did consent to trach and PEG placement. Today's chest x-ray shows findings consistent with patient's history of COVID 19 pneumonia bilateral airspace disease no evident pneumothorax or pleural effusion. In terms of therapy patient remains on Decadron 6 mg daily, and patient is on 1 dose of Lasix, patient is in -723 mL net fluid balance over the last 24 hours, she is receiving nutritional support, she is tolerating it well, she was found to have C. diff colitis, she is still having liquidy diarrhea, and she is on oral vancomycin. Today's labs show improvement in the white blood cell count down to 27 on the hemoglobin is 11.2, d-dimer is 3.6, blood gases as mentioned above, sodium is 143, potassium is 4.0, chloride is 112, BUN of 84, creatinine is 1.16, ferritin level is 1664, LDH is trending down, 2199, and CRP is 3.6 Objective - Vital Signs Vital signs: Vital Signs Temp 98.9 F 10/19/20 08:00 Pulse 83 10/19/20 10:00 Resp 24 10/19/20 10:00 BP 105/64 10/19/20 10:00 Pulse Ox 96 10/19/20 10:00 Intake & Output 10/18/20 10/19/20 10/19/20 18:59 06:59 18:59 Intake Total 6160.418 8020 476.972 Output Total 1080 2060 595 Balance 307.910 -1031 -118.028 Weight 126.7 kg Intake: IV 401 275 54 0.9 Normal Saline @ KVO 260 220 40 0.9 Normal Saline 41 55 14 Pressure Bags Cefepime 2 gm In Sodium 100 Chloride 0.9% 100 ml @ 25 mls/hr IVPB Q12HR [facility] Rx #:[id number] Intake, IV Titration 480.910 232 172.972 Amount Amiodarone 450 mg In 250 Dextrose 5% in Water 250 ml @ 0.5 MG/MIN 16.667 mls/hr IV .Q15H [facility] Rx#: [id number] Diltiazem 125 mg In 200.667 232 Sodium Chloride 0.9% 100 ml @ 20 MG/HR 20 mls/hr IV .[id number] [facility] Rx#: [id number] Norepinephrine 4 mg In 30.243 0 112.972 Sodium Chloride 0.9% 250 ml @ 0.05 MCG/KG/MIN 24. 003 mls/hr IV .[id number] [facility] Rx#:[id number] Sodium Chloride 0.9% 500 60 ml 500 ml @ 20 mls/hr IV .Q24H [facility] Rx#:[id number] Tube Feeding 416 352 160 Other 90 170 90 Output: Urine 1080 1060 595 Stool 1000 Other: Voiding Method Indwelling Catheter Indwelling Catheter Indwelling Catheter ABP, PAP, CO, CI - Last Documented Arterial Blood Pressure 94/54 - Exam GENERAL EXAM: Sedated, intubated, 60-year-old morbidly obese white female, on assist control mode of ventilation with FiO2 of 50% and PEEP of 5 HEAD: Normocephalic/atraumatic. EYES: Normal reaction of pupils, equal size. Conjunctiva pink, sclera white. NOSE: Clear with pink turbinates. THROAT: No erythema or exudates. NECK: No masses, no JVD, no thyroid enlargement, no adenopathy. CHEST: No chest wall deformity. Symmetrical expansion. LUNGS: Equal air entry with diffuse crackles but no wheeze, rhonchi or dullness. CVS: Irregular rate and rhythm, normal S1 and S2, no gallops, no murmurs, no rubs ABDOMEN: Soft, nontender. No hepatosplenomegaly, normal bowel sounds, no guarding or rigidity. EXTREMITIES: No clubbing, no edema, no cyanosis, 2+ pulses and upper and lower extremities. MUSCULOSKELETAL: Muscle strength and tone normal. SPINE: No scoliosis or deformity SKIN: No rashes CENTRAL NERVOUS SYSTEM: Sedated, intubated No focal deficits, tone is normal in all 4 extremities. - Labs CBC & Chem 7: 10/19/20 04:15 10/19/20 04:15 Labs: Abnormal Lab Results - Last 24 Hours (Table) 10/19/20 10/19/20 10/19/20 Range/Units 04:15 04:15 04:15 WBC 27.0 H (3.8-10.6) k/uL Hgb 11.2 L (11.4-16.0) gm/dL RDW 16.9 H (11.5-15.5) % Neutrophils # 25.3 H (1.3-7.7) k/uL Lymphocytes # 0.5 L (1.0-4.8) k/uL D-Dimer 3.66 H (<0.60) mg/L FEU ABG HCO3 (21-25) mmol/L ABG Total CO2 (19-24) mmol/L ABG O2 Saturation (94-97) % Chloride 112 H (98-107) mmol/L BUN 84 H (7-17) mg/dL Creatinine 1.16 H (0.52-1.04) mg/dL Glucose 170 H (74-99) mg/dL Calcium 7.8 L (8.4-10.2) mg/dL AST 65 H (14-36) U/L ALT 144 H (4-34) U/L Lactate Dehydrogenase 2199 H (313-618) U/L C-Reactive Protein 3.6 H (<1.0) mg/dL Total Protein 5.4 L (6.3-8.2) g/dL Albumin 2.9 L (3.5-5.0) g/dL 10/19/20 Range/Units 05:07 WBC (3.8-10.6) k/uL Hgb (11.4-16.0) gm/dL RDW (11.5-15.5) % Neutrophils # (1.3-7.7) k/uL Lymphocytes # (1.0-4.8) k/uL D-Dimer (<0.60) mg/L FEU ABG HCO3 28 H (21-25) mmol/L ABG Total CO2 29 H (19-24) mmol/L ABG O2 Saturation 97.6 H (94-97) % Chloride (98-107) mmol/L BUN (7-17) mg/dL Creatinine (0.52-1.04) mg/dL Glucose (74-99) mg/dL Calcium (8.4-10.2) mg/dL AST (14-36) U/L ALT (4-34) U/L Lactate Dehydrogenase (313-618) U/L C-Reactive Protein (<1.0) mg/dL Total Protein (6.3-8.2) g/dL Albumin (3.5-5.0) g/dL Microbiology - Last 24 Hours (Table) 10/12/20 15:24 Blood Culture - Final Blood No Growth after 144 hours Assessment and Plan Plan: assessment: #1. Acute hypoxic respiratory failure secondary to acute COVID 19 related pneumonitis, status post Tocilizumab and 1 unit of convalescent plasma on 10/03/2020, admitted to the ICU on 10/03/2020, and intubated on 10/07/2020. Patient has had prolonged ventilator support and the plan is to proceed with tracheostomy and PEG tube placement, and the family has agreed to that. Patient has remained off sedation for the last 2 days, and her mentation remains quite altered, she is unresponsive to deep painful stimuli #2. Episodes of A. fib with RVR, and patient is a combination of amiodarone drip at 0.5 mg/m, in addition to Cardizem drip at 15-20 mg per hour, and patient was started on Eliquis for anticoagulation which is currently on hold for possibility of tracheostomy and PEG tube placement #3. Increased d-dimer related to acute COVID-19, improving #4. Acute C. diff colitis, and patient does have evidence of E. coli urinary tract infection and patient has completed a course of cefepime which is currently discontinued #5. Sputum culture positive for Corynebacterium stratum likely a colonizer #6. Leukocytosis likely related to acute C. diff colitis, which is improving and patient is currently on oral vancomycin #7. History of paroxysmal atrial fibrillation #8. Increased transaminases related to acute viral pneumonia. Ultrasound abdomen was completed showing multiple gallbladder stones, however total bilirubin level is normal at 0.5 Plan: Continue current ventilator settings Keep off sedation to assess mental status Today's chest x-ray and lab work has been reviewed Continue oral vancomycin for C. diff colitis Continue once daily dose of Lasix Family has agreed to tracheostomy and PEG tube placement, but requested Dr. Villa Off Eliquis for possibility of tracheostomy and PEG tube insertion in the next 24 hours Continue current dose Decadron, Rate control medications per cardiology Continue nutritional support and place on hold per surgery when the procedure of trach and PEG are scheduled We'll follow closely in the intensive care unit I performed a history & physical examination of the patient and discussed their management with my nurse practitioner, Ena Daly. I reviewed the nurse practitioner's note and agree with the documented findings and plan of care. Lung sounds are positive for diminished breath sounds. The findings and the impression was discussed with the patient. I attest to the documentation by the nurse practitioner. , Time with Patient: Greater than 30
[2020-10-19] MEDS: AMIODARONE 450 MG in DEXTROSE 5% IN WATER 250 ML IV SCH ×2 (12:37)
[2020-10-19] MEDS: SODIUM CHLORIDE 0.9% 500 ML 500 ML IV SCH (18:38)
--- NOTE | 2020-10-19 21:01 | P.PN ---
Progress Note - Text Progress Note Date: 10/19/20 Presenting complaint Shortness of breath History of presenting complaint Patient is a 60-year-old female, follows with Dr. Herberth Hurd, with no known past medical history who presented to the ER secondary to shortness of breath and cough. She was diagnosed with COVID 19 on 09/23/20. In the ER she was saturating 85% on room air and was found to be in A. fib with RVR and heart rates 120 to 130. Initial labs showed d-dimer of 1.77, lymphocytes 0.5, sodium 132, carbon dioxide 19, BUN 25, AST 122, ALT 47, LDH 2894, and CRP to exceed 8.2. She was admitted and was started on Decadron. She was outside of the window for Remdesivir. She was started on a Cardizem drip as well as metoprolol orally for her A. fib. She was also started on a heparin drip. She's given fluids for her hyponatremia. Pulmonary was consulted. She was requiring a nonrebreather on admission and overnight on 10/03 she was requiring maximal therapy through an air follow along with her nonrebreather to maintain low normal O2 sats. She converted to normal sinus rhythm and her Cardizem drip was stopped. Cardiology was consulted for her A. fib. She was subsequently transferred to the ICU. She had reported some leg pain and venous Dopplers were negative in bilateral lower extremities heparin drip was stopped and she had converted to normal sinus mechanism and she was subsequently started on prophylactic Lovenox. Echocardiogram showed ejection fraction 55-60% with moderate LVH. She was unable to tolerated AIRVO and was started on BiPap. Patient opted to change her CODE STATUS to DO NOT INTUBATE (October 08 patient respiratory status declined. Patient's sister obtained an emergency guardianship through the court and after she discussed with Dr. Park he decided to intubate the patient. This morning patient is on propofol and Nimbex. But the FiO2 60 the PEEP 16. I did get a call from the nurse and also from the hospital social worker for request for transfer to it was to [place] per sister and tank charger Dr. Park for ECMO. I did speak to the admitting office of the day tank charger , home with home I discussed the case at length. He said that the patient was not a candidate for transfer and can be managed here. I did give him Dr. Park's cell number for further conversation regarding his advice for management here.) Patient's again had an episode of paroxysmal atrial fibrillation . Started with loose stools- C. difficile positive. Oral vancomycin admitted Today ICU: . FiO2 50 and a PEEP of 10. Telemetry atrial flutter rate controlled. Drips include IV amiodarone. Offsetting this for last 2 days. Minimal response. Nurse informed be that patient's sister was the DPO and the doctor both 1 to proceed with a PEG tube of the tracheostomy tube. 2 feeding currently at 42 mL an hour. Review of systems: Patient intubated Active Medications Acetaminophen (Acetaminophen Tab 325 Mg Tab) 650 mg PO Q6HR PRN PRN Reason: Mild Pain or Fever > 100.5 Last Admin: 10/18/20 13:03 Dose: 650 mg Documented by: Albuterol Sulfate (Albuterol Hfa Inhaler) 2 puff INHALATION RT-Q4H [facility] Last Admin: 10/19/20 19:41 Dose: 2 puff Documented by: Albuterol Sulfate (Albuterol Hfa Inhaler) 2 puff INHALATION RT-QID PRN PRN Reason: Shortness Of Breath Or Wheezing Ascorbic Acid (Ascorbic Acid 500 Mg Tab) 1,000 mg PO DAILY [facility] Last Admin: 10/19/20 08:06 Dose: 1,000 mg Documented by: Chlorhexidine Gluconate (Chlorhexidine Gluconate 15 Ml Cup) 15 ml MUCOUS MEM BID [facility] Last Admin: 10/19/20 08:07 Dose: 15 ml Documented by: Cholecalciferol (Cholecalciferol 25 Mcg (1000 Iu) Tablet) 100 mcg PO DAILY [facility] Last Admin: 10/19/20 08:07 Dose: 100 mcg Documented by: Dexamethasone (Dexamethasone 2 Mg Tab) 6 mg PO DAILY [facility] Last Admin: 10/19/20 08:07 Dose: 6 mg Documented by: Famotidine (Famotidine 20 Mg/2 Ml Vial) 20 mg IV BID [facility] Last Admin: 10/19/20 08:07 Dose: 20 mg Documented by: Furosemide (Furosemide 10 Mg/Ml 4 Ml Vial) 40 mg IV DAILY [facility] Last Admin: 10/19/20 08:07 Dose: 40 mg Documented by: Amiodarone HCl 450 mg/ (Dextrose/Water) 250 mls @ 16.667 mls/hr IV .Q15H [facility]; Protocol Last Admin: 10/19/20 12:37 Dose: 0.5 mg/min, 16.667 mls/hr Documented by: Diltiazem HCl 125 mg/ Sodium (Chloride) 125 mls @ 20 mls/hr IV .Q6H15M [facility] Last Admin: 10/19/20 19:50 Dose: 20 mg/hr, 20 mls/hr Documented by: Sodium Chloride (Saline 0.9%) 500 mls @ 20 mls/hr IV .Q24H [facility] Last Admin: 10/19/20 18:38 Dose: 20 mls/hr Documented by: Norepinephrine Bitartrate 4 mg (/ Sodium Chloride) 254 mls @ 24.003 mls/hr IV .[id number] [facility]; Protocol Last Admin: 10/19/20 11:53 Dose: Not Given Documented by: Metoprolol Tartrate (Metoprolol Tartrate 50 Mg Tab) 100 mg PO TID [facility] Last Admin: 10/19/20 17:22 Dose: Not Given Documented by: Vancomycin HCl (Vancomycin Oral Solution 250 Mg/5 Ml Bottle) 250 mg PO Q6HR [facility] Last Admin: 10/19/20 18:38 Dose: 250 mg Documented by: Zinc Sulfate (Zinc Sulfate 220 Mg Cap) 220 mg PO DAILY [facility] Last Admin: 10/19/20 08:07 Dose: 220 mg Documented by: On examination: VITAL SIGNS: 99.7, 86, 24, 93/6 33, 94% on the ventilator GENERAL APPEARANCE: Sedated, intubated , RESPIRATORY: Respiratory effort increased. Accessory muscles working Rest of the exam per pulmonary and nursing Investigations: October 18: WBC 31.3 hemoglobin 11.9 d-dimer 4.96 potassium 4 creatinine 1110 LDH 2440 CRP 4.5 October 17: WBC 29.4 hemoglobin 11.9 platelets 242 d-dimer 6.12 potassium 4.4 creatinine 1.03 CRP 4.2 C. diff positive October 16: WBC 21.6 hemoglobin 11.2 platelets 480 potassium 4.4 creatinine 1.02 d-dimer 8.4 to CRP 19 alk phos 53 LDH 08/11/2001 October 15: WBC 21.8 hemoglobin 10.7 platelets 197 d-dimer 8.7 potassium 4.3 creatinine 1.05. Chest x-ray: Bilateral infiltrates October 14: WBC 26.5 hemoglobin 10.6 platelets 178 d-dimer 9.63 ABG with a pH of 7.38 pCO2 57 pO2 of 57 potassium 4.5 bun 65 creatinine 1.12 LDH 3 mL 78 pro- calcitonin 0.17 October 06: WBC 7.4 hemoglobin 13.2 platelets 238 d-dimer 22.8 potassium 5.3 creatinine 0.8 CRP 25.1 Abdominal ultrasound limited: Very limited exam. Possible gallstones. October 05: WBC 5.3 hemoglobin 12.9 platelets 260 d-dimer 3.65 potassium 4.9 creatinine 0.81 CRP 45.6 Chest x-ray film personally reviewed by me-[October 05]: Bilateral infiltrates more so in the lower zone Lower extremity Doppler ultrasound: Negative for DVT 2-D echocardiogram: Concentric LVH, EF 55-60% Admission labs: D-dimer 1.77 CRP 68.2 Sputum: Corynebacterium stratum Urine culture: E. coli Assessment and plan: COVID 19 pneumonia with acute hypoxic respiratory failure,-not improving -Continue with Decadron, Zinc, vitamin C, vitamin D, IV heparin changed to eliquis [ Convolescent Plasma 10/03, Toci X 1 on 10/03 ] Septic. Suspect secondary bacterial not improving IV cefepime -Septic and cardiogenic shock Acute hypoxic respiratory failure secondary to COVID 19 pneumonia,-not improving. Remains on ventilator support, FiO2 50 % Paroxysmal atrial fibrillation, repeated episodes of rapid ventricular rate- currently sinus rhythm. Back into atrial fibrillation-rate remains uncontrolled eliquis. Currently IV Cardizem and IV amiodarone Transaminitis likely secondary to illness -Follow liver enzymes. ultrasound: Poor quality. -Gallstones, asymptomatic Hyponatremia secondary decreased solute intake in addition to water. -Corrected -Morbid obesity with BMI 41 outpatient weight loss -Hyperkalemia Corrected -Acute UTI with cystitis from E. coli On IV cefepime -Legal guardian: Krista patient's sister -Acute C. diff colitis Started on oral vancomycin We'll consult neurology in view of poor neurological response following being off sedation for 48 hours. order EEG.
[2020-10-20] MEDS: VANCOMYCIN ORAL SOLUTION 250 MG/5 ML BOTTLE PO SCH ×4 (00:30→18:06)
[2020-10-20] MEDS: ALBUTEROL HFA INHALER INHALATION SCH ×7 (00:32→23:46)
[2020-10-20] MEDS: DILTIAZEM 125 MG in SODIUM CHLORIDE 0.9% 100 ML IV SCH ×5 (03:05→21:00)
[2020-10-20] MEDS: NOREPINEPHRINE 4 MG in SODIUM CHLORIDE 0.9% 250 ML IV SCH ×2 (03:07→08:46)
[2020-10-20] MEDS: AMIODARONE 450 MG in DEXTROSE 5% IN WATER 250 ML IV SCH ×4 (04:10→18:04)
[2020-10-20 04:55] LABS: Anisocytosis Slight; Basophils % (A) 0 %; Eosinophils % (A) 0 %; HCT 33.3 % (34.0-46.0); HGB 11.2 gm/dL (11.4-16.0); Lymphocytes # (A) 0.5 k/uL (1.0-4.8); Lymphocytes % (A) 2 %; MCH 29.5 pg (25.0-35.0); MCHC 33.5 g/dL (31.0-37.0); MCV 87.9 fL (80.0-100.0); Mean Platelet Volume 8.2; Monocytes % (A) 5 %; Neutrophils # (A) 21.1 k/uL (1.3-7.7); Neutrophils % (A) 92 %; Platelet Count 281 k/uL (150-450); RBC 3.79 m/uL (3.80-5.40); RDW 16.9 % (11.5-15.5); WBC 22.8 k/uL (3.8-10.6)
[2020-10-20 05:27] LABS: Calcium 7.8 mg/dL (8.4-10.2)
[2020-10-20 05:57] LABS: ABG Base Excess 4.4 mmol/L; ABG HCO3 27 mmol/L (21-25); ABG Oxygen Saturation 97.8 % (94-97); ABG PCO2 35 mmHg (35-45); ABG PH 7.51 (7.35-7.45); ABG PO2 90 mmHg (83-108); ABG TCO2 29 mmol/L (19-24)
[2020-10-20 06:00] LABS: Allen Test Performed? no
--- NOTE | 2020-10-20 07:55 | XR ---
EXAMINATION TYPE: XR chest 1V portable DATE OF EXAM: 10/20/2020 COMPARISON: Chest x-ray 10/19/2020 HISTORY: Intubated TECHNIQUE: Single frontal view of the chest is obtained. FINDINGS: Endotracheal tube, orogastric tube, left-sided central venous catheter are stable and over lying appropriate positions. Bilateral airspace disease is again noted. No evident pneumothorax or pl eural effusion. Cardiac mediastinal silhouette is stable. Aorta is dense. IMPRESSION: No evident interval change. Correlate for pneumonia, edema, ARDS
[2020-10-20] MEDS: FAMOTIDINE 20 MG/2 ML VIAL IV SCH ×2 (08:00→21:55)
[2020-10-20] MEDS: ASCORBIC ACID 500 MG TAB PO SCH (08:01)
[2020-10-20] MEDS: METOPROLOL TARTRATE 50 MG TAB PO SCH ×3 (08:01→22:32)
[2020-10-20] MEDS: ZINC SULFATE 220 MG CAP PO SCH (08:01)
[2020-10-20] MEDS: CHLORHEXIDINE GLUCONATE 15 ML CUP MUCOUS MEM SCH ×2 (08:01→21:55)
[2020-10-20] MEDS: dexAMETHasone 2 MG TAB PO SCH (08:01)
[2020-10-20] MEDS: CHOLECALCIFEROL 25 MCG (1000 IU) TABLET PO SCH (08:01)
[2020-10-20] MEDS: FUROSEMIDE 10 MG/ML 4 ML VIAL IV SCH (08:01)
--- NOTE | 2020-10-20 12:16 | P.PN ---
Subjective This is a 60-year-old female with significant past medical history for former nicotine dependce, who presents with history failure related to COVID-19 infection pneumonia. She was diagnosed with COVID 09/23/2020. She does not follow with a retirement actuary. We are following secondary to atrial fibrillation and atrial flutter with episodes of RVR. She was found to be in SVT and received 2 doses of adenosine, repeat EKG revealed A fib with RVR. She has been initiated on Cardizem drip, Amiodarone drip, heparin drip. She converted to sinus mechanism, Cardizem was discontinued and patient started on PO metoprolol. She started to have episodes of tachycardia consistent with atrial flutter and atrial fibrillation with RVR. She was re-initiated on Cardizem drip, Amiodarone drip, heparin drip. She was having episodes of rapid ventricular response when she is febrile. She was weaned off sedation 10/17/20. C. diff positive. Echocardiogram 10/03/20: EF 55-60%, trace MR, trace TR. 10/20/20: Patient remains intubated. She continues to be in atrial flutter, rate is controlled. Laboratory data reviewed, WBC 22.8, hemoglobin 11.2, platelets 281, sodium 146, potassium 4.0, creatinine 1.01 (1.16 yesterday). Currently maintained on amiodarone 0.5mg/min, Cardizem 20 mg per hour and metoprolol 100 mg three times a day. 24 hour urine output 2595 mL's. GENERAL: No acute distress, maintained on mechanical ventilation AC FiO2 50%, PEEP 10. Patient has ET and OG tube Telemetry tracings indicate atrial flutter HR currently in the 80s. BP 103/57 HR 82, Tmax 99.7 SpO2 96% ASSESSMENT Paroxysmal atrial fibrillation/typical atrial flutter - currently on eliquis COVID 19 Acute hypoxic respiratory failure Acute Kidney Injury- improving PLAN Patient is scheduled for tracheostomy and PEG tube placement today Eliquis is on hold for procedure- restart per surgery recommendations We will continue amiodarone drip, cardizem drip Continue lopressor as ordered. Further recommendations based on clinical fourse. Nurse Practitioner note has been reviewed, I agree with a documented findings and plan of care. Patient was seen and examined. Objective - Vital Signs Vital signs: Vital Signs Temp 98.6 F 10/20/20 08:00 Pulse 82 10/20/20 09:00 Resp 19 10/20/20 09:00 BP 107/72 10/20/20 09:00 Pulse Ox 96 10/20/20 09:00 Intake & Output 10/19/20 10/20/20 10/20/20 18:59 06:59 18:59 Intake Total 1580.639 891 218 Output Total 1405 1190 250 Balance 175.639 -299 -32 Weight 126.7 kg 125 kg Intake: IV 81 256 6 0.9 Normal Saline @ KVO 40 220 0.9 Normal Saline 41 36 6 Pressure Bags Intake, IV Titration 829.639 395 182 Amount Amiodarone 450 mg In 250 250 Dextrose 5% in Water 250 ml @ 0.5 MG/MIN 16.667 mls/hr IV .Q15H [facility] Rx#: [id number] Diltiazem 125 mg In 246.667 125 122 Sodium Chloride 0.9% 100 ml @ 20 MG/HR 20 mls/hr IV .Q6H15M [facility] Rx#: [id number] Norepinephrine 4 mg In 112.972 Sodium Chloride 0.9% 250 ml @ 0.05 MCG/KG/MIN 24. 003 mls/hr IV .[id number] [facility] Rx#:[id number] Sodium Chloride 0.9% 500 220 20 60 ml 500 ml @ 20 mls/hr IV .Q24H [facility] Rx#:[id number] Tube Feeding 520 210 Other 150 30 30 Output: Urine 1405 1190 250 Other: Voiding Method Indwelling Catheter Indwelling Catheter Indwelling Catheter ABP, PAP, CO, CI - Last Documented Arterial Blood Pressure 103/57 - Labs CBC & Chem 7: 10/20/20 04:40 10/20/20 04:40 Labs: Abnormal Lab Results - Last 24 Hours (Table) 10/19/20 10/20/20 10/20/20 Range/Units 04:15 04:40 04:40 WBC 22.8 H (3.8-10.6) k/uL RBC 3.79 L (3.80-5.40) m/uL Hgb 11.2 L (11.4-16.0) gm/dL Hct 33.3 L (34.0-46.0) % RDW 16.9 H (11.5-15.5) % Neutrophils # 21.1 H (1.3-7.7) k/uL Lymphocytes # 0.5 L (1.0-4.8) k/uL D-Dimer 2.93 H (<0.60) mg/L FEU ABG pH (7.35-7.45) ABG HCO3 (21-25) mmol/L ABG Total CO2 (19-24) mmol/L ABG O2 Saturation (94-97) % Sodium (137-145) mmol/L Chloride (98-107) mmol/L BUN (7-17) mg/dL Glucose (74-99) mg/dL Calcium (8.4-10.2) mg/dL Ferritin 1664.8 H (10.0-291.0) ng/mL Lactate Dehydrogenase (313-618) U/L C-Reactive Protein (<1.0) mg/dL 10/20/20 10/20/20 Range/Units 04:40 05:51 WBC (3.8-10.6) k/uL RBC (3.80-5.40) m/uL Hgb (11.4-16.0) gm/dL Hct (34.0-46.0) % RDW (11.5-15.5) % Neutrophils # (1.3-7.7) k/uL Lymphocytes # (1.0-4.8) k/uL D-Dimer (<0.60) mg/L FEU ABG pH 7.51 H (7.35-7.45) ABG HCO3 27 H (21-25) mmol/L ABG Total CO2 29 H (19-24) mmol/L ABG O2 Saturation 97.8 H (94-97) % Sodium 146 H (137-145) mmol/L Chloride 113 H (98-107) mmol/L BUN 83 H (7-17) mg/dL Glucose 150 H (74-99) mg/dL Calcium 7.8 L (8.4-10.2) mg/dL Ferritin (10.0-291.0) ng/mL Lactate Dehydrogenase 1974 H (313-618) U/L C-Reactive Protein 3.0 H (<1.0) mg/dL
--- NOTE | 2020-10-20 12:47 | P.PN ---
Subjective Progress Note Date: 10/20/20 Principal diagnosis: Acute hypoxic respiratory failure secondary to acute COVID 19 pneumonitis This is a 60-year-old female with no previous significant medical history, on 09/23/20, she was diagnosed with acute covid 19 infection. Patient took qnbl-rhs-njrnewp medications. And yesterday she presented to the ER and she was found in atrial fibrillation with RVR. And her chest x-ray showed diffuse interstitial pneumonitis. Patient was found to have elevated inflammatory mar kers with LDH of 2894, and C-reactive protein of 8.2. Considering the patient had over 1 week of symptoms, she was felt to be outside the window for REM. Her atrial fibrillation and RVR was treated with Cardizem and later metoprolol orally. She was also placed on heparin. Chest x-ray was quite concerning. Patient required placement on a nonrebreather mask. Later placed on high flow airvo with a non-rebreather mask, and her O2 saturations remained marginal around 88-93%. I saw this patient this morning, and I recommended immediate transfer to the ICU. Chest x-ray was reviewed and it is consistent with acute Covid 19 pneumonitis. Her d-dimer was 0.98.CBC was relatively normal. LDH is up to 3596. And C-reactive protein is up to 76.8 after evaluating the patient, I recommended convalescent plasma. I also recommended actemra. Patient was reevaluated today on 10/04/2020, patient remains in the ICU, she is presently on BiPAP with IPAP of 14 EPAP of 6, and FiO2 is 100%. We ordered actemra and convalescent plasma on this patient. And I believe she received both. Patient was out of the window for REM. Remains on the Covid 19 cocktail. CBC is relatively normal d-dimer 0.73 lites are normal her inflammatory markers are high with LDH of 09/05/2005 and C-reactive protein of 75. Clinically the patient is about the same, not much change from yesterday, she has intermittent cough, and shortness of breath with any activity. Her pulmonary status is marginal at best. On 10/05/2020 and patient seen in follow-up in the intensive care unit. She remains on BiPAP support with pressures of 14/60 FiO2 of 100% with a pulse ox between 90-97%, afebrile, a bit hypertensive, with systolic between 160-180 and diastolic in 90-100. Patient is status post Tocilizumab 800 mg IV piggyback infusion on 10/03/2020 and she has received 1 unit of convalescent plasma on 10/03/2020. Continues on Decadron 6 mg daily, Lovenox 40 mg daily, Pepcid, IV fluids 0.9 normal saline infusing at 25 ML per hour. Today's labs have been reviewed, d-dimer 3.6, B1 is 32, creatinine 0.81, CO2 is 33, the rest of the electrolytes were unremarkable, ferritin level is 1414, AST is 79, which has improved, and ALT is 41 which is relatively stable, up slightly from 39, but overall improving, LDH remains significantly elevated at 3977, CRP is 45.6. Chest x-ray shows diffuse bilateral infiltrates. On 10/07/1999 patient seen in follow-up in the intensive care unit. She remains on BiPAP support on which she is most of the time, with pressures of 14/6, 100% FiO2. Pulse ox is 95%, low-grade fevers with a temp of 99.4 axillary this morning, hemodynamically patient remains stable, not on any drips, 0.9 normal saline at 20 ML per hour, today's d-dimer is up to 22.82, and the patient was started on therapeutic doses of Lovenox 120 mg twice daily, however we will switch the patient to 0.5 mg/kg dosing twice daily. Today's inflammatory markers are continue to trend up, LDH is up to 4670, and a CK is 607, and CRP is down some to 25.1. Abdominal ultrasound was completed in view of elevated liver enzymes and it was a severely limited exam suggesting mostly a collapsed gallbladder containing multiple gallstones, bile duct measures were within normal limits. Today's chest x-ray showed diffuse pleural parenchymal changes correlating with diffuse pneumonia. Hemodynamically patient has been stable, maintaining normal sinus rhythm, echocardiogram showed normal LV function without significant valvular abnormalities, cardiology is following and has been adjusting beta blockers for better heart rate and blood pressure control. On today's evaluation of 10/12/2020 seeing this patient for a follow-up. Is a 60-year-old male patient with COVID 19 pneumonia. Pneumonia and secondary hypoxic respiratory failure. The patient was intubated and placed on a mechanical ventilator. The patient was admitted to the ICU on 10/03/2020 and the patient was extubated on 10/07/2020. Initially the patient was on high flow oxygen which she failed and subsequently his condition progressed and the patient has to be intubated and placed on a mechanical ventilator. The patient has already received 2 units of convalescent plasma, the patient has received Tocilizumab and the patient is currently on steroids. On today's evaluation, the patient is sedated with propofol at 45 mcg/kg per minute and the patient is calm and comfortable successful mechanical ventilator. Propofol is running at 45 mics respiratory per minute. The patient was paralyzed earlier with Nimbex and this was discontinued and he had to be placed back and the patient is currently back on nimbex 1 mcg/kg per minute.. The patient is also intubated on a mechanical ventilator within assist-control at the rate of 30, FiO2 of 60%, PEEP 16 with a tidal volume of 400. Blood gases were noted. The ABG from this morning showed a pH of 7.32 with a pCO2 of 62 and pO2 of 122. The chest x-ray from today is unchanged and the patient has bilateral pulmonary infiltrates more so on the right lower lobe. ET tube is in a good location. As for the blood work, the patient has a white cell count of 23 with a hemoglobin of 12 and a d-dimer of 8.66, BUN is a 50 with a creatinine of 0.9, LDH level is 4302 and a CRP level is at 9.4. The patient is hemodynamically stable on no pressors. Patient was being performed earlier and currently is in a supine body position. The chest x-ray from today showing diffuse breath and pulmonary infiltrates and ET tube is in a good location. The patient is on a enteral feeding with vital high protein at the rate of 40 mL an hour. The neck fluid balance over the past 24 hours is -226 mL and there are no signs of any significant fluid overload. Producing adequate amount of urine output. The cardiac rhythm is A. fib/flutter and the patient is currently on Eliquis. The peak airway pressure is 34 anesthetic pressures around 33. On 10/13/2020 on seeing the patient for a follow-up. The patient remains in intensive care unit. This is a 60-year-old female patient with Covid interrelated pneumonia with hypoxic respiratory failure. The patient has been on a mechanical ventilator since 10/07/2020. The patient currently is on propofol which is running at 60 mcg/kg per minute and the patient is also on paralytics which is running in the form of Nimbex at 1 mcg/kg per minute. Attempts to wean off the Nimbex failed and the patient had to be paralyzed again. Meanwhile, the patient remains on a mechanical ventilator, assist control rate of 30 with an FiO2 of 40% and a PEEP of 16 and a tidal volume of 400. The blood gases from today shows a pH of 7.33 with a pCO2 of 61 and pO2 of 71. The peak airway pressures are 33 and a plateau airway pressure is 31. The chest x-ray from today show an stable bilateral pulmonary infiltrates, with right midlung and left lower lobe pulmonary infiltration and the chest x-ray findings are essentially stable since yesterday without any significant interval change. Her potassium level was at 5.7 and his morning and based on that the patient was given a dose of Kayexalate 30 Repeat potassium is pending for now. Meanwhile, the patient remains hemodynamically stable. The patient is on levo fed, at 0.06 mcg/kg per minute. This should be gradually weaned off today. The patient is on enteral feeding for nutritional support and the patient is on vital high protein at 40 mL an hour. The patient remains in episodes of atrial fibrillation/flutter and this morning is she is on Cardizem at 10 mg an hour and the patient was loaded again with amiodarone and maintained on a infusion of amiodarone at 0.5 she'll be switched back to oral amiodarone today. She remains on Eliquis 5 mg by mouth twice a day. Empiric antibiotic coverage with IV cefepime. She remains on Decadron 6 mg IV every 24 hours. IV fluids with normal saline at the rate of 25 mL an hour. The fluid balance over the past 24 hours has been -49 mL. 10/14/2020, I'm seeing the patient for a follow-up. The patient was intubated and she has been on a mechanical ventilator since 10/07/2020. I'm seeing her today in follow-up. She remains on propofol at 45 mcg/kg per minute and the patient is currently on Nimbex at 1 mcg/kg per minute. She is well sedated and paralyzed. Paralytic Cardizem being given to her daily basis. She failed yesterday and the same of discharge today. She had a mechanical ventilator assist control mode at the rate of 30 with an FiO2 of 40% and a PEEP of 12 with tidal volume of 400. Blood gases from today shows a pH of 7.3388 with a pCO2 of 57 and pO2 of 57. As for the chest x-ray, I do not see any interval change in the patient has diffuse bilateral pulmonary infiltrates. Peak airway pressure is 31 with a static pressure of 26. IV fluids with normal saline at the rate of 25 mL an hour. She is still having issues with atrial fibrillation. She is currently on a combination of Cardizem drip at the rate of 15 mg an hour and amiodarone at 0.5 mg per minute and metoprolol at a dose of 100 mg by mouth 3 times a day. Earlier this morning, the patient was still tachycardic and the patient was being considered for digoxin. Nevertheless, her heart rate currently is down at 9365 per minute. Earlier this morning it was in the 130s up to 160 range. Otherwise, the patient is on no pressors since yesterday, the patient's electrolytes today show improvement in her potassium down to 4.7 being given Kayexalate. BUN 65 with a creatinine of 1.1. The LDH level is 3378 which is still elevated although lower compared to yesterday and his CRP level is at 7.7. Serum bicarb is 34.. Calcitonin levels of 0.17 and the patient is currently on empiric antibiotic coverage with cefepime. Urine culture was showing gram-negative bacillus and the final culture are still pending for now. We will cefepime gram-negative bacilli fluid: Balance balance is positive of 1 L over the past 24 hours. 2020, the patient is being seen for a follow-up. He remains intubated on a mechanical ventilator. Currently on propofol running at 50 mcg/kg per minute and the patient wishes currently off Nimbex and the patient was taken off the paralytics yesterday. Meanwhile, the patient remains on a mechanical ventilator on assist control mode and she is on assist-control at the rate of 30 with an FiO2 of 50% and a PEEP currently is at 12 with a tidal volume of 400. The peak and static pressures are lower with a levels of 28 and 19 respectively. The blood gases from today shows a pH of 7.41 with a pCO2 of 53 and pO2 of 77 and t he patient's agitation is improved. The chest x-ray from today showing diffuse bilateral pulmonary infiltrates, unchanged with orotracheal tube being in a good location. The patient is being treated with Decadron 6 mg IV every 24 hours. She remains on Eliquis 5 mg by mouth twice a day. She has a d-dimer of 8.7 from today, slightly lower and the rest of the inflammatory markers are still pending for now. Meanwhile, hemodynamically, the patient is stable and she is on no pressors. Her atrial fibrillation/flutter is under much better control. She is currently in a flutter rhythm. Amiodarone is running at 0.5 mg per minute and the patient is also on metoprolol 100 mg by mouth 3 times a day and Cardizem at 15 mg an hour. The plan is to continue these per cardiology. The patient is also on empiric antibiotic coverage with IV cefepime. The pro calcitonin level was 0.17. The patient is afebrile. No respiratory secretions. Cultures of been all negative. I'm inclined to continue the antibiotics as the patient has E. coli in her urine off for 10/12. 10/16/2020, the patient remains on a mechanical ventilator. Unfortunately, she is not doing any much progress. She was taken off the Nimbex and she is still on her lipase for now. She is also on propofol running at 50 mcg/kg per minute. Unfortunately, she was having issues with oxygen desaturation yesterday. I had to make some ventilator changes and currently she is an assist-control mode at a rate of 30 with a FiO2 of 70% and a PEEP of 10 and a tidal volume of 400. The blood gases from this morning showed a pH of 7.4 with a pCO2 of 50 and pO2 of 89. Chest x-ray is unchanged with diffuse bilateral pulmonary infiltrates. She remains on Decadron 6 mg by mouth. She remains also and a A. fib flutter rhythm and after being controlled for a while, the patient went back to become tachycardic again despite being on a combination of metoprolol 100 mg 3 times a day, Cardizem drip and then amiodarone drip. She still has a coagulation with Eliquis. Discussed with cardiology. Not a candidate for cardioversion. IV antibiotics is emphatic and the patient's Prograf level is low at 0.17. She is afebrile. She is on enteral feeding for nutritional support and she is currently on vital high protein at the rate of 40 mL an hour. She has E. coli in the urine. She also had abnormal inflammatory markers with an LDH of 08/11/2001, CRP of 19, and a d-dimer level of 8.4. Around 7:00 this morning, the patient was becoming hypotensive and she was started on low-dose norepinephrine which is running at 5 g per minute. Her net fluid balance is - 2.6 L over the past 24 hours and the patient is receiving Lasix 40 mg IV push every 12 hours. She is also having some diarrhea and she has a fecal management system in place. Stool for C. diff will be checked before the injury. Note that the patient is receiving IV cefepime that was initially emphatic and later on antibiotic was kept on board because of E. coli in the urine. She also has corynebacterium in the sputum, a colonizer. 10/17/2020, the patient is being seen for a follow-up. She is on propofol and she remains off Nimbex. Propofol is running at 50 mcg/kg per minute. She is also on assist control mode of ventilation on a rate of 24, tidal volume of 450, FiO2 of 50% and a PEEP of 10. Peak airway pressure is 31. Static pressure is 2 8. Blood gases showed a pH of 7.43 with a pCO2 of 43 and pO2 of 63. She is breathing comfortably on a mechanical ventilator. The chest x-ray from today is showing some limited infiltration in lung bases left more than right. Orotracheal tube is in a good location. Comparing chest x-rays, she has marked improvement in the infiltration is noted on the right compared to the earlier chest x-ray from yesterday. Left side remains essentially unchanged. She is off paralytics. She remains in atrial fibrillation. Rate has been fluctuating. After being tachycardic for it some time, she improved and currently she is back having some ongoing tachycardia. Her heart rate Cardizem 150. The patient remains on amiodarone drip at 0.5 mg per minute that she is also on Cardizem drip at 15 mg an hour. The patient is also on Eliquis for long-term and coagulation regarding the ongoing atrial fibrillation. She remains on metoprolol 100 mg by mouth 3 times a day for rate control. Note that the p atient had become also hypotensive and the patient was started on norepinephrine infusion at the low-dose of 0.02 mics per kilogram per minute is being gradually weaned off. She is receiving enteral feeding for nutritional support with vital high protein at the rate of 40 mL an hour. For that overall fluid balance over the past 24 hours has been -2.1 L. The patient remains on Lasix 40 mg of push every 12 hours. She was having liquidy stool/bowel movements and the patient was further testing and she checked positive for C. diff and the patient was started on oral vancomycin. Note that her antibiotic coverage was with IV cefepime and this was essentially an empiric antibiotic coverage. Was found to have gram-negative UTI with Ecoli and the plan was to continue the antibiotics for a total of 5 days. The pro calcitonin level from 10/14/2020 WAS 0.17. FOR THE CORYNEBACTERIUM, IN THE SPUTUM, THIS IS LIKELY A COLONIZER. 10/18/2020, the patient has been off sedation since yesterday at 2 PM. Neurologically, she is still not awake. She may have some reflexes with deep painful stimulation such as grimacing. She is not withdrawing. Note that the patient has taken significant amount of sedation during her hospitalization and this may be a residual drug effect. She is on mechanical ventilator. On today's evaluation, she is on assist-control at the rate of 44 with a tidal vo lume of 450 and FiO2 of 50% with a PEEP of 10. Peak and static pressures are 26 and 24 respectively. Blood gases showed a pH of 7.37 with a pCO2 of 47 and pO2 of 80. Chest x-ray from today showing bilateral multifocal areas of reticular another opacities and infiltrates consistent with COVID-19 related pneumonia/ARDS. The patient is not having any significant orotracheal secretions. I had a lengthy discussion with the family and I discussed the case with her sister and the daughter and the [id number] and we have made decisions to proceed with a PEG and trach and the surgeon was going through the procedure will be up to the discretion of the family. The patient meanwhile is an atrial fibrillation. The rate is controlled at the rate of 116 and the patient is currently on anticoagulation withEliquis 5 mg by mouth twice a day. In terms of rate control she is still on Cardizem drip at 20 mg an hour and she is also on amiodarone at 0.5 mg per minute. She is also on Lopressor 100 mg by mouth 3 times a day. Cardiology rounded on the patient and he wanted to keep the same medications for now. The patient is also being diuresis with IV Lasix patient is receiving 40 mg IV every 12 hours. Once that is improving and the patient continues to be a negative fluid balance.Fluid balance was -5 94 mL over the past 24 hours. Meanwhile, the BUN is at 72 and the creatinine is at 1.1. Her inflammatory markers regarding COVID-19 showed a LDH level of 2440 on the d- dimer currently is at 4.96. CRP is at 4.5. She is receiving enteral feeding for nutritional support in the form of vital high protein at the rate of 32 mL an hour. She was having liquidy stool and this turned out to be consistent with C. diff colitis. She is currently on oral vancomycin. The diarrhea has slowed down since yesterday. No fever. The white cell count is currently elevated at 31. She is on IV cefepime regarding E. coli in her urine. She remains on a low dose of norepinephrine infusion at 0.02 micrograms per kilogram per minute. On 10/19/2020 patient seen in follow-up in the intensive care unit, patient has been off sedation for the last 2 days, and she remains unresponsive, and patient does not move extremities, at times she does withdraw to deep painful stimuli, has not open eyes to voice. She remains on mechanical ventilator support with assist control mode of ventilation, with a rate of 24, tidal volume is 450, FiO2 of 50%, and PEEP of 10. She is intubated with a #8 endotracheal tube, 2 6 at the lip, peak airway pressures 27, her static pressure is 22. Currently she is on amiodarone at 0.5 mg per minute, and she remains in atrial fibrillation with a heart rate which is better controlled at 83-98 BPM, blood pressure stable at 105/64, and patient is not requiring any vasopressor support. 0.9 normal saline is at a rate of 20 ML per hour, Cardizem drip is currently running at 20 mg per hour, patient was started on Eliquis for anticoagulation which is currently on hold for tracheostomy and PEG tube placement. Apparently the family got back to nursing staff and they are requesting Dr. Villa for surgical consultation for trach PEG tube placement, and they did consent to trach and PEG placement. Today's chest x-ray shows findings consistent with patient's history of COVID 19 pneumonia bilateral airspace disease no evident pneumothorax or pleural effusion. In terms of therapy patient remains on Decadron 6 mg daily, and patient is on 1 dose of Lasix, patient is in -723 mL net fluid balance over the last 24 hours, she is receiving nutritional support, she is tolerating it well, she was found to have C. diff colitis, she is still having liquidy diarrhea, and she is on oral vancomycin. Today's labs show improvement in the white blood cell count down to 27 on the hemoglobin is 11.2, d-dimer is 3.6, blood gases as mentioned above, sodium is 143, potassium is 4.0, chloride is 112, BUN of 84, creatinine is 1.16, ferritin level is 1664, LDH is trending down, 2199, and CRP is 3.6 On 10/20/2020 patient seen in follow-up in the intensive care unit, she remains intubated and sedated on mechanical ventilator, she has been off sedation since 10/17/2020 and her level of consciousness is still quite sedated, and patient has not open eyes to voice, and has not withdrawing from pain followed any meaningful commands, Tristan settings are assist control mode of ventilation with a rate of 24, tidal volumes 450, FiO2 of 50% and PEEP of 10, despite his bl ood gases show pO2 of 90, pCO2 35 and pH of 7.51, crit drips include amiodarone as 0.5 mg per hour, Nimbex has been off Coumadin to prevent has been off since 10/17/2020. No other drips at this time except for maintenance IV fluids at point and a saline at a rate of 20 ML per hour. Patient remains in A. fib/atrial flutter with a rate of 81 BPM. Her Eliquis has been placed on hold as the patient is scheduled for tracheostomy and PEG tube placement today with Dr. Mcmahon. Requiring any vasopressor support, she is receiving oral vancomycin for C. diff colitis, she continues on Decadron 6 mg daily, she is also on Cardizem at 20 mg per hour, she is on daily dose of IV Lasix 40 mg daily, and sh e is in negative fluid balance of 123 mL. Her chest x-ray today shows no evident interval change with bilateral airspace disease related to COVID 19 pneumonia. Today's labs have been reviewed, white blood cell count is down to 22.8, improving, hemoglobin 11.2, d-dimer is improving and is down to 2.93, blood gases as mentioned above, sodium is 146, potassium is 4.0, renal profile shows BUN of 83 and creatinine of 1.01, LDH is improving and is down to 1974, and CRP is 3. Woods catheter is in place and patient is producing urine output in the order of 100-175 ML per hour, fecal management system is in place, patient is still having liquidy diarrhea. Objective - Vital Signs Vital signs: Vital Signs Temp 99.0 F 10/20/20 12:00 Pulse 95 10/20/20 12:00 Resp 32 H 10/20/20 12:00 BP 104/70 10/20/20 12:00 Pulse Ox 96 10/20/20 12:00 Intake & Output 10/19/20 10/20/20 10/20/20 18:59 06:59 18:59 Intake Total 1580.639 891 307 Output Total 1405 1190 725 Balance 175.639 299 -418 Weight 126.7 kg 125 kg Intake: IV 81 256 15 0.9 Normal Saline @ KVO 40 220 0.9 Normal Saline 41 36 15 Pressure Bags Intake, IV Titration 829.639 395 242 Amount Amiodarone 450 mg In 250 250 Dextrose 5% in Water 250 ml @ 0.5 MG/MIN 16.667 mls/hr IV .Q15H [facility] Rx#: [id number] Diltiazem 125 mg In 246.667 125 122 Sodium Chloride 0.9% 100 ml @ 20 MG/HR 20 mls/hr IV .Q6H15M [facility] Rx#: [id number] Norepinephrine 4 mg In 112.972 Sodium Chloride 0.9% 250 ml @ 0.05 MCG/KG/MIN 24. 003 mls/hr IV .[id number] [facility] Rx#:[id number] Sodium Chloride 0.9% 500 220 20 120 ml 500 ml @ 20 mls/hr IV .Q24H [facility] Rx#:[id number] Tube Feeding 520 210 Other 150 30 50 Output: Urine 1405 1190 725 Other: Voiding Method Indwelling Catheter Indwelling Catheter Indwelling Catheter ABP, PAP, CO, CI - Last Documented Arterial Blood Pressure 98/48 - Exam GENERAL EXAM: Unresponsive, comatose, intubated, 60-year-old morbidly obese white female, on assist control mode of ventilation with FiO2 of 50% and PEEP of 5 HEAD: Normocephalic/atraumatic. EYES: Normal reaction of pupils, equal size. Conjunctiva pink, sclera white. NOSE: Clear with pink turbinates. THROAT: No erythema or exudates. NECK: No masses, no JVD, no thyroid enlargement, no adenopathy. CHEST: No chest wall deformity. Symmetrical expansion. LUNGS: Equal air entry with diffuse crackles but no wheeze, rhonchi or dullness. CVS: Irregular rate and rhythm, normal S1 and S2, no gallops, no murmurs, no rubs ABDOMEN: Soft, nontender. No hepatosplenomegaly, normal bowel sounds, no guarding or rigidity. EXTREMITIES: No clubbing, no edema, no cyanosis, 2+ pulses and upper and lower extremities. MUSCULOSKELETAL: Muscle strength and tone normal. SPINE: No scoliosis or deformity SKIN: No rashes CENTRAL NERVOUS SYSTEM: Sedated, intubated No focal deficits, tone is normal in all 4 extremities. - Labs CBC & Chem 7: 10/20/20 04:40 10/20/20 04:40 Labs: Abnormal Lab Results - Last 24 Hours (Table) 10/20/20 10/20/20 10/20/20 Range/Units 04:40 04:40 04:40 WBC 22.8 H (3.8-10.6) k/uL RBC 3.79 L (3.80-5.40) m/uL Hgb 11.2 L (11.4-16.0) gm/dL Hct 33.3 L (34.0-46.0) % RDW 16.9 H (11.5-15.5) % Neutrophils # 21.1 H (1.3-7.7) k/uL Lymphocytes # 0.5 L (1.0-4.8) k/uL D-Dimer 2.93 H (<0.60) mg/L FEU ABG pH (7.35-7.45) ABG HCO3 (21-25) mmol/L ABG Total CO2 (19-24) mmol/L ABG O2 Saturation (94-97) % Sodium 146 H (137-145) mmol/L Chloride 113 H (98-107) mmol/L BUN 83 H (7-17) mg/dL Glucose 150 H (74-99) mg/dL Calcium 7.8 L (8.4-10.2) mg/dL Lactate Dehydrogenase 1974 H (313-618) U/L C-Reactive Protein 3.0 H (<1.0) mg/dL 10/20/20 Range/Units 05:51 WBC (3.8-10.6) k/uL RBC (3.80-5.40) m/uL Hgb (11.4-16.0) gm/dL Hct (34.0-46.0) % RDW (11.5-15.5) % Neutrophils # (1.3-7.7) k/uL Lymphocytes # (1.0-4.8) k/uL D-Dimer (<0.60) mg/L FEU ABG pH 7.51 H (7.35-7.45) ABG HCO3 27 H (21-25) mmol/L ABG Total CO2 29 H (19-24) mmol/L ABG O2 Saturation 97.8 H (94-97) % Sodium (137-145) mmol/L Chloride (98-107) mmol/L BUN (7-17) mg/dL Glucose (74-99) mg/dL Calcium (8.4-10.2) mg/dL Lactate Dehydrogenase (313-618) U/L C-Reactive Protein (<1.0) mg/dL Assessment and Plan Plan: assessment: #1. Acute hypoxic respiratory failure secondary to acute COVID 19 related pneumonitis, status post Tocilizumab and 1 unit of convalescent plasma on 10/03/2020, admitted to the ICU on 10/03/2020, and intubated on 10/07/2020. Patient has had prolonged ventilator support and the plan is to proceed with tracheostomy and PEG tube placement, and the family has agreed to that. Patient has remained off sedation for the last 3 days, and her mentation remains quite altered, she is unresponsive to deep painful stimuli #2. Episodes of A. fib with RVR, and patient is a combination of amiodarone drip at 0.5 mg/m, in addition to Cardizem drip at 15-20 mg per hour, and patient was started on Eliquis for anticoagulation which is currently on hold for possibility of tracheostomy and PEG tube placement #3. Increased d-dimer related to acute COVID-19, improving #4. Acute C. diff colitis, and patient does have evidence of E. coli urinary tract infection and patient has completed a course of cefepime which is currently discontinued #5. Sputum culture positive for Corynebacterium stratum likely a colonizer #6. Leukocytosis likely related to acute C. diff colitis, which is improving and patient is currently on oral vancomycin #7. History of paroxysmal atrial fibrillation #8. Increased transaminases related to acute viral pneumonia. Ultrasound abdomen was completed showing multiple gallbladder stones, however total bilirubin level is normal at 0.5 Plan: No ventilator setting changes Today's chest x-ray and lab work has been reviewed Continue oral vancomycin for C. diff colitis Continue once daily dose of Lasix Tracheostomy and PEG tube placement today Off Eliquis for possibility of tracheostomy and PEG tube insertion in the next 24 hours Continue current dose Decadron, Rate control medications per cardiology I performed a history & physical examination of the patient and discussed their management with my nurse practitioner, Ena Daly. I reviewed the nurse practitioner's note and agree with the documented findings and plan of care. Lung sounds are positive for diminished breath sounds. The findings and the impression was discussed with the patient. I attest to the documentation by the nurse practitioner. , Time with Patient: Greater than 30
--- NOTE | 2020-10-20 14:37 | EEG ---
ELECTROENCEPHALOGRAM REPORT DATE OF SERVICE: 10/20/2020 PREAMBLE: This is a 60-year-old female who has been on the ventilator with no purposeful movement or response. She is off sedation for a couple days and now is not waking up. This EEG is performed to evaluate for encephalopathy. EEG FINDINGS: This is a 21 channel routine EEG recording in a patient utilizing 10/20 international system with referential and bipolar montages. The background consists of poorly developed and regulated, diffuse moderate amplitude 2-3 hertz delta activity seen in bihemispheric region. Intermittent myogenic activity was seen. There is very frequent myogenic activity seen in the right temporal region, which sometimes becomes bitemporal and sometimes generalizes, which appears more myogenic and artifactual. This was noted only in T4-lead in transverse montage. No epileptiform activity was seen. IMPRESSION: This is a moderate to severely abnormal EEG due to diffuse slowing of background activity in delta and some theta range. This is suggestive of generalized cerebral dysfunction as can be seen with encephalopathy of toxic, metabolic or anoxic causes. No obvious epileptiform activity was seen. MMODL / IJN: [id number] / MTDD
[2020-10-20] MEDS ORDERED: METOPROLOL TARTRATE 5 MG/5 ML VIAL IVP ONE (15:10)
[2020-10-20] MEDS ORDERED: ONDANSETRON 4 MG/2 ML VIAL ONE (15:10)
[2020-10-20] MEDS ORDERED: PHENYLEPHRINE-0.9% NACL SYG 1,000 MCG/10 ML SYRINGE ONE (15:10)
[2020-10-20] MEDS ORDERED: ROCURONIUM 10 MG/ML (5 ML VIAL) IV ONE (15:10)
[2020-10-20] MEDS ORDERED: PROPOFOL 10 MG/ML 20 ML VIAL IV ONE (15:10)
[2020-10-20] MEDS ORDERED: LACTATED RINGERS 1,000 ML IV ONE (15:20)
[2020-10-20] MEDS ORDERED: BUPIVACAINE (PF) 0.25% 30 ML VIAL SQ ONE (15:49)
[2020-10-20] MEDS ORDERED: SODIUM CHLORIDE 0.9% 100 ML with ceFAZolin 1,000 MG IV ONE ×2 (15:52)
--- NOTE | 2020-10-20 16:54 | P.OP ---
Date of Procedure: 10/20/20 Procedure(s) Performed: PREOPERATIVE DIAGNOSIS: Respiratory failure, malnutrition POSTOPERATIVE DIAGNOSIS: Same PROCEDURE: Tracheostomy, EGD with PEG tube placement SURGEON: Daisy EBL: Minimal ANESTHESIA: General COMPLICATIONS: None OPERATIVE PROCEDURE: Patient was placed in the operative table in the supine position. A shoulder roll was utilized. The neck was prepped and draped in usual sterile fashion. The skin was infiltrated with local anesthesia. A small cervical incision was created using the scalpel. Dissection through the subcutaneous fat and platysma layer took place using electrocautery. The underlying strap muscles were divided in the midline. The thyroid isthmus was divided using electrocautery as well. No bleeding was seen. The trachea was easily identified at this time. The endotracheal tube was advanced and the balloon was reinflated. The patient was preoxygenated with 100% FiO2. The FiO2 was then brought down to room air. Once the end title oxygen level was less than 35 a vertical tracheostomy was created using the electrocautery. This went through the second and third tracheal ring. The patient was again preoxygenated with 100% FiO2. The straightener gun parts was utilized. Carefully the endotracheal tube was withdrawn just proximal to our tracheostomy. The 8-[place] Shiley nonfenestrated tracheostomy catheter was advanced under direct visualization into the trachea. This was then connected to the ventilator. Positive end tidal CO2 was confirmed. The tracheal ties were utilized. The trach was sutured to the skin superiorly using 2 separate 0 silk sutures. The skin was closed using 3-0 Vicryl sutures. A dressing was applied. The patient was kept in the supine position on the operating room table. The Olympus gastroscope was inserted into the oropharynx and passed under direct visualization to the region of the duodenum. No obstruction was seen. The pylorus was widely patent. The stomach was carefully inspected. The stomach was fully insufflated with air. The abdominal wall was inspected. The light was seen shining through the abdominal wall in the left upper quadrant. This site was chosen for PEG tube placement. The area was prepped in the usual sterile fashion. To localize this location a spinal needle was used with negative pressure and a syringe and advanced into the region of the antrum. Air was seen once the needle entered the stomach. I then marked 3 areas around this location for our stay sutures. 3 stay sutures were then placed using the PEG catheter kit in a triangular shape around the anticipated site of PEG placement. Once these were secured a Seldinger needle was advanced into the stomach centrally. The wire was advanced in the needle was withdrawn. The dilator was then utilized after a skin incision was made there. We gradually dilated up to 20-[place]. The 16-[place] PEG tube catheter was then advanced into the stomach under direct visualization. The split sheath was gradually withdrawn as the tube was advanced. Once the tube was in the stomach this was filled with 5 mL of saline. The split sheath was fully withdrawn at that point. The bolster was tightened down appropriately. Sterile dressings were applied. DISPOSITION: Stable to ICU
[2020-10-20] MEDS: SODIUM CHLORIDE 0.9% 500 ML 500 ML IV SCH (18:05)
--- NOTE | 2020-10-20 21:12 | P.CNNES ---
History of Present Illness Consult date: 10/20/20 Requesting physician: Red Mcneil Reason for Consult: Evaluate neurological status History of Present Illness: Patient is a 60-year-old female came to the hospital on 10/02/2020 for pneumonia due to COVID-19 virus, hypoxia, SVT, atrial fibrillation with rapid ventricular rate. Chest x-ray revealed diffuse interstitial pneumonitis. Patient was found to have elevated inflammatory markers. Patient had become positive for COVID-19 on 09/23/2020. Patient has continued to be severely encephalopathic. Patient has undergone trach and PEG today. Patient has been off sedation since 10/17/2020. Patient is not waking up. Patient is not following commands. Neurology consulted for neurological evaluation. Patient's chest x-ray from yesterday showed no evident interval change. Correlate for pneumonia, edema, ARDS. Bilateral airspace disease is again noted. No pneumothorax. 2-D echo from 10/03/2020 shows normal left-ventricular size. Moderate concentric LVH. EF is 55-60%. Trace MR. Trace TR. Bilateral leg ultrasound was negative for DVT. Patient's blood test from this morning showed WBC 22.8, hemoglobin 11.2, platelets 281. PT/INR is normal. ABG shows pH 7.51, pCO2 35, pO2 90. Oxygen saturation 97.8%. Sodium 146 potassium 4.0, BUN is 83, creatinine 1.01. Hepatic panel shows mildly elevated AST 65, ALT 144. Patient is now positive for C. difficile as well. Review of Systems ROS unobtainable: due to endotracheal tube, due to mental status Past Medical History Past Medical History: No Reported History History of Any Multi-Drug Resistant Organisms: None Reported Past Surgical History: Orthopedic Surgery Past Psychological History: Unable to Obtain Smoking Status: Former smoker Past Alcohol Use History: None Reported Past Drug Use History: None Reported - Past Family History Father Family Medical History: Cancer, Hypertension Mother Family Medical History: Cancer Medications and Allergies Home Medications Medication Instructions Recorded Confirmed Type No Known Home Medications 10/02/20 10/02/20 History Allergies Allergy/AdvReac Type Severity Reaction Status Date / Time codeine Allergy Rash/Hives Verified 10/02/20 15:23 Sulfa (Sulfonamide Allergy Rash/Hives Verified 10/02/20 15:23 Antibiotics) Penicillins AdvReac Unknown Verified 10/12/20 23:38 Physical Examination - Vital Signs Vital Signs: Vital Signs Temp Pulse Resp BP Pulse Ox 10/20/20 19:00 78 28 H 107/67 97 10/20/20 18:45 82 28 H 96 10/20/20 18:30 83 30 H 96 10/20/20 18:15 92 24 100 10/20/20 18:00 86 28 H 100/61 96 10/20/20 17:45 87 24 94 L 10/20/20 17:30 86 24 95 10/20/20 17:15 86 24 100/61 95 10/20/20 17:00 98.2 F 76 24 98/62 96 10/20/20 15:00 80 29 H 88/60 96 10/20/20 14:00 79 27 H 91/64 96 10/20/20 13:00 78 28 H 100/66 97 10/20/20 12:00 99.0 F 95 32 H 104/70 96 10/20/20 11:00 81 28 H 100/72 96 10/20/20 10:00 81 30 H 104/72 95 10/20/20 09:00 82 28 H 107/72 96 10/20/20 08:00 98.6 F 103 H 28 H 101/73 94 L 10/20/20 07:00 98 24 109/69 96 10/20/20 06:00 101 H 26 H 104/71 96 10/20/20 05:00 98 25 H 112/74 95 10/20/20 04:00 98.4 F 98 24 112/70 95 10/20/20 03:00 85 25 H 103/73 95 10/20/20 02:00 93 25 H 101/69 95 10/20/20 01:00 84 26 H 97/71 96 10/20/20 00:00 99.0 F 92 25 H 99/72 96 10/19/20 23:00 93 26 H 107/69 95 10/19/20 22:00 91 26 H 98/65 96 10/19/20 21:00 86 25 H 101/68 96 10/19/20 20:00 99.3 F 96 26 H 102/66 95 Intake and Output 10/20/20 10/20/20 10/20/20 06:59 14:59 22:59 Intake Total 601 353 888.671 Output Total 850 895 295 Balance -249 -542 593.671 Intake: IV 184 21 562 0.9 Normal Saline @ KVO 160 0.9 Normal Saline 24 21 12 Pressure Bags Intake, IV Titration 375 282 311.671 Amount Amiodarone 450 mg In 250 231.671 Dextrose 5% in Water 250 ml @ 0.5 MG/MIN 16.667 mls/hr IV .Q15H EILEEN Rx#: [id number] Diltiazem 125 mg In 125 122 Sodium Chloride 0.9% 100 ml @ 20 MG/HR 20 mls/hr IV .Q6H15M EILEEN Rx#: [id number] Sodium Chloride 0.9% 500 160 80 ml 500 ml @ 20 mls/hr IV .Q24H EILEEN Rx#:[id number] Tube Feeding 42 0 Other 50 15 Output: Urine 850 895 290 Estimated Blood Loss 5 Other: Voiding Method Indwelling Catheter Indwelling Catheter Indwelling Catheter Weight 125 kg ABP, PAP, CO, CI - Last 8 Hours Arterial Blood Pressure 104/55 Arterial Blood Pressure 110/54 Arterial Blood Pressure 118/56 Arterial Blood Pressure 122/59 Arterial Blood Pressure 118/58 Arterial Blood Pressure 119/58 Arterial Blood Pressure 116/58 Arterial Blood Pressure 125/63 Arterial Blood Pressure 96/62 Arterial Blood Pressure 100/52 Arterial Blood Pressure 90/49 Arterial Blood Pressure 89/50 Arterial Blood Pressure 98/48 on examination patient is a late middle aged female, who is severely encephalopathic. Patient has undergone tracheostomy and back placement today. No obvious bleeding. No obvious seizure activity noted. Patient has positive corneal reflex. Patient has positive oculocephalics. Pupils are round and reacting. Face appears symmetric. Tongue cannot be checked. Hearing cannot be checked. Patient is not responding to calling her name. No response to deep painful stimuli. Patient has moderate peripheral edema. Tone is equal in the arms and legs. Reflexes are absent and plantars are flat. No clonus. Sensory, cerebellar functions, motor could not be checked. Abdomen is soft. No obvious bruit. No rash. Results - Laboratory Findings CBC and BMP: 10/20/20 04:40 10/20/20 04:40 Abnormal Lab Findings: Abnormal Labs 10/02/20 10/02/20 10/02/20 14:48 14:48 14:48 WBC RBC Hgb Hct RDW Plt Count Neutrophils # Neutrophils # (Manual) Lymphocytes # 0.5 L Lymphocytes # (Manual) Metamyelocytes # (Man) Myelocytes # (Manual) APTT D-Dimer 1.77 H ABG pH ABG pCO2 ABG pO2 ABG HCO3 ABG Total CO2 ABG O2 Saturation Sodium 132 L Potassium Chloride Carbon Dioxide 19 L BUN 25 H Creatinine Glucose 131 H POC Glucose (mg/dL) Calcium 7.8 L Magnesium Ferritin AST 122 H ALT 47 H Alkaline Phosphatase Lactate Dehydrogenase 2894 H Creatine Kinase C-Reactive Protein 68.2 H Total Protein Albumin Triglycerides Procalcitonin C. difficile (EIA) Intrp 10/02/20 10/03/20 10/03/20 22:34 07:23 08:27 WBC RBC Hgb Hct RDW Plt Count Neutrophils # Neutrophils # (Manual) Lymphocytes # 0.4 L Lymphocytes # (Manual) Metamyelocytes # (Man) Myelocytes # (Manual) APTT 36.0 H D-Dimer ABG pH ABG pCO2 ABG pO2 ABG HCO3 ABG Total CO2 ABG O2 Saturation Sodium 136 L Potassium Chloride Carbon Dioxide BUN 26 H Creatinine Glucose 135 H POC Glucose (mg/dL) Calcium 7.8 L Magnesium 2.4 H Ferritin AST 114 H ALT 49 H Alkaline Phosphatase Lactate Dehydrogenase 3596 H Creatine Kinase C-Reactive Protein 76.8 H Total Protein 6.0 L Albumin 3.3 L Triglycerides Procalcitonin C. difficile (EIA) Intrp 10/03/20 10/03/20 10/03/20 08:27 11:01 19:55 WBC RBC Hgb Hct RDW Plt Count Neutrophils # Neutrophils # (Manual) Lymphocytes # Lymphocytes # (Manual) Metamyelocytes # (Man) Myelocytes # (Manual) APTT 47.5 H D-Dimer 0.98 H ABG pH ABG pCO2 ABG pO2 ABG HCO3 ABG Total CO2 ABG O2 Saturation Sodium Potassium Chloride Carbon Dioxide BUN Creatinine Glucose POC Glucose (mg/dL) 125 H 142 H Calcium Magnesium Ferritin AST ALT Alkaline Phosphatase Lactate Dehydrogenase Creatine Kinase C-Reactive Protein Total Protein Albumin Triglycerides Procalcitonin C. difficile (EIA) Intrp 10/03/20 10/04/20 10/04/20 23:03 00:05 03:58 WBC RBC Hgb Hct RDW Plt Count Neutrophils # Neutrophils # (Manual) Lymphocytes # Lymphocytes # (Manual) Metamyelocytes # (Man) Myelocytes # (Manual) APTT 52.2 H D-Dimer 0.73 H ABG pH ABG pCO2 ABG pO2 ABG HCO3 ABG Total CO2 ABG O2 Saturation Sodium Potassium Chloride Carbon Dioxide BUN Creatinine Glucose POC Glucose (mg/dL) 143 H 133 H Calcium Magnesium Ferritin AST ALT Alkaline Phosphatase Lactate Dehydrogenase Creatine Kinase C-Reactive Protein Total Protein Albumin Triglycerides Procalcitonin C. difficile (EIA) Intrp 10/04/20 10/04/20 10/04/20 03:58 03:58 05:48 WBC 3.7 L RBC Hgb Hct RDW Plt Count Neutrophils # Neutrophils # (Manual) Lymphocytes # Lymphocytes # (Manual) Metamyelocytes # (Man) Myelocytes # (Manual) APTT D-Dimer ABG pH ABG pCO2 ABG pO2 ABG HCO3 ABG Total CO2 ABG O2 Saturation Sodium 136 L Potassium Chloride Carbon Dioxide BUN 32 H Creatinine Glucose 139 H POC Glucose (mg/dL) 119 H Calcium 7.7 L Magnesium Ferritin AST 90 H ALT 39 H Alkaline Phosphatase Lactate Dehydrogenase 3606 H Creatine Kinase C-Reactive Protein 74.9 H Total Protein 5.8 L Albumin 3.2 L Triglycerides Procalcitonin C. difficile (EIA) Intrp 10/04/20 10/04/20 10/04/20 12:25 17:34 23:34 WBC RBC Hgb Hct RDW Plt Count Neutrophils # Neutrophils # (Manual) Lymphocytes # Lymphocytes # (Manual) Metamyelocytes # (Man) Myelocytes # (Manual) APTT D-Dimer ABG pH ABG pCO2 ABG pO2 ABG HCO3 ABG Total CO2 ABG O2 Saturation Sodium Potassium Chloride Carbon Dioxide BUN Creatinine Glucose POC Glucose (mg/dL) 114 H 125 H 122 H Calcium Magnesium Ferritin AST ALT Alkaline Phosphatase Lactate Dehydrogenase Creatine Kinase C-Reactive Protein Total Protein Albumin Triglycerides Procalcitonin C. difficile (EIA) Intrp 10/05/20 10/05/20 10/05/20 04:20 04:20 04:20 WBC RBC Hgb Hct RDW Plt Count Neutrophils # Neutrophils # (Manual) Lymphocytes # Lymphocytes # (Manual) 0.37 L Metamyelocytes # (Man) Myelocytes # (Manual) APTT D-Dimer 3.65 H ABG pH ABG pCO2 ABG pO2 ABG HCO3 ABG Total CO2 ABG O2 Saturation Sodium Potassium Chloride Carbon Dioxide 33 H BUN 32 H Creatinine Glucose 120 H POC Glucose (mg/dL) Calcium 7.8 L Magnesium Ferritin 1414.5 H AST 79 H ALT 41 H Alkaline Phosphatase Lactate Dehydrogenase 3977 H Creatine Kinase 999 H C-Reactive Protein 45.6 H Total Protein 6.0 L Albumin 3.3 L Triglycerides Procalcitonin C. difficile (EIA) Intrp 10/05/20 10/05/20 10/05/20 12:01 17:40 23:26 WBC RBC Hgb Hct RDW Plt Count Neutrophils # Neutrophils # (Manual) Lymphocytes # Lymphocytes # (Manual) Metamyelocytes # (Man) Myelocytes # (Manual) APTT D-Dimer ABG pH ABG pCO2 ABG pO2 ABG HCO3 ABG Total CO2 ABG O2 Saturation Sodium Potassium Chloride Carbon Dioxide BUN Creatinine Glucose POC Glucose (mg/dL) 106 H 119 H 111 H Calcium Magnesium Ferritin AST ALT Alkaline Phosphatase Lactate Dehydrogenase Creatine Kinase C-Reactive Protein Total Protein Albumin Triglycerides Procalcitonin C. difficile (EIA) Intrp 10/06/20 10/06/20 10/06/20 03:30 03:30 03:30 WBC RBC Hgb Hct RDW Plt Count Neutrophils # Neutrophils # (Manual) Lymphocytes # 0.4 L Lymphocytes # (Manual) Metamyelocytes # (Man) Myelocytes # (Manual) APTT D-Dimer 22.82 H ABG pH ABG pCO2 ABG pO2 ABG HCO3 ABG Total CO2 ABG O2 Saturation Sodium Potassium 5.3 H Chloride Carbon Dioxide 34 H BUN 32 H Creatinine Glucose 106 H POC Glucose (mg/dL) Calcium 8.0 L Magnesium Ferritin 1312.7 H AST 85 H ALT 49 H Alkaline Phosphatase 157 H Lactate Dehydrogenase 4670 H Creatine Kinase 607 H C-Reactive Protein 25.1 H Total Protein 6.1 L Albumin 3.4 L Triglycerides Procalcitonin C. difficile (EIA) Intrp 10/06/20 10/06/20 10/06/20 05:52 11:40 12:31 WBC RBC Hgb Hct RDW Plt Count Neutrophils # Neutrophils # (Manual) Lymphocytes # Lymphocytes # (Manual) Metamyelocytes # (Man) Myelocytes # (Manual) APTT D-Dimer ABG pH ABG pCO2 ABG pO2 ABG HCO3 ABG Total CO2 ABG O2 Saturation Sodium Potassium Chloride Carbon Dioxide BUN Creatinine Glucose POC Glucose (mg/dL) 109 H 110 H Calcium Magnesium Ferritin AST ALT Alkaline Phosphatase Lactate Dehydrogenase Creatine Kinase C-Reactive Protein Total Protein Albumin Triglycerides Procalcitonin 0.10 H C. difficile (EIA) Intrp 10/06/20 10/07/20 10/07/20 17:58 05:07 05:07 WBC 13.3 H RBC Hgb Hct RDW Plt Count Neutrophils # 12.0 H Neutrophils # (Manual) Lymphocytes # 0.6 L Lymphocytes # (Manual) Metamyelocytes # (Man) Myelocytes # (Manual) APTT D-Dimer >34.10 H ABG pH ABG pCO2 ABG pO2 ABG HCO3 ABG Total CO2 ABG O2 Saturation Sodium Potassium Chloride Carbon Dioxide BUN Creatinine Glucose POC Glucose (mg/dL) 146 H Calcium Magnesium Ferritin AST ALT Alkaline Phosphatase Lactate Dehydrogenase Creatine Kinase C-Reactive Protein Total Protein Albumin Triglycerides Procalcitonin C. difficile (EIA) Intrp 10/07/20 10/07/20 10/07/20 05:07 06:00 09:18 WBC RBC Hgb Hct RDW Plt Count Neutrophils # Neutrophils # (Manual) Lymphocytes # Lymphocytes # (Manual) Metamyelocytes # (Man) Myelocytes # (Manual) APTT D-Dimer ABG pH 7.46 H ABG pCO2 ABG pO2 66 L ABG HCO3 30 H ABG Total CO2 32 H ABG O2 Saturation 93.4 L Sodium Potassium Chloride Carbon Dioxide 31 H BUN 34 H Creatinine Glucose 104 H POC Glucose (mg/dL) 100 H Calcium 8.0 L Magnesium Ferritin 1607.3 H AST 124 H ALT 64 H Alkaline Phosphatase 223 H Lactate Dehydrogenase 6384 H Creatine Kinase 557 H C-Reactive Protein 17.1 H Total Protein 6.0 L Albumin 3.4 L Triglycerides Procalcitonin C. difficile (EIA) Intrp 10/07/20 10/07/20 10/07/20 11:53 17:45 22:38 WBC RBC Hgb Hct RDW Plt Count Neutrophils # Neutrophils # (Manual) Lymphocytes # Lymphocytes # (Manual) Metamyelocytes # (Man) Myelocytes # (Manual) APTT D-Dimer ABG pH ABG pCO2 51 H ABG pO2 63 L ABG HCO3 28 H ABG Total CO2 30 H ABG O2 Saturation 89.0 L Sodium Potassium Chloride Carbon Dioxide BUN Creatinine Glucose POC Glucose (mg/dL) 125 H 145 H Calcium Magnesium Ferritin AST ALT Alkaline Phosphatase Lactate Dehydrogenase Creatine Kinase C-Reactive Protein Total Protein Albumin Triglycerides Procalcitonin C. difficile (EIA) Intrp 10/08/20 10/08/20 10/08/20 01:09 04:45 04:45 WBC 15.6 H RBC Hgb Hct RDW Plt Count 143 L Neutrophils # 14.7 H Neutrophils # (Manual) Lymphocytes # 0.5 L Lymphocytes # (Manual) Metamyelocytes # (Man) Myelocytes # (Manual) APTT D-Dimer ABG pH 7.18 L* ABG pCO2 75 H* ABG pO2 110 H ABG HCO3 28 H ABG Total CO2 30 H ABG O2 Saturation Sodium Potassium 5.3 H Chloride 111 H Carbon Dioxide BUN 48 H Creatinine Glucose 132 H POC Glucose (mg/dL) Calcium 7.3 L Magnesium Ferritin AST 124 H ALT 69 H Alkaline Phosphatase 206 H Lactate Dehydrogenase Creatine Kinase C-Reactive Protein Total Protein 5.9 L Albumin 3.2 L Triglycerides Procalcitonin C. difficile (EIA) Intr 10/08/20 10/08/20 10/08/20 04:46 05:39 11:55 WBC RBC Hgb Hct RDW Plt Count Neutrophils # Neutrophils # (Manual) Lymphocytes # Lymphocytes # (Manual) Metamyelocytes # (Man) Myelocytes # (Manual) APTT D-Dimer ABG pH 7.20 L 7.25 L ABG pCO2 70 H 65 H ABG pO2 254 H ABG HCO3 27 H 28 H ABG Total CO2 30 H 30 H ABG O2 Saturation 99.4 H Sodium Potassium Chloride Carbon Dioxide BUN Creatinine Glucose POC Glucose (mg/dL) 124 H Calcium Magnesium Ferritin AST ALT Alkaline Phosphatase Lactate Dehydrogenase Creatine Kinase C-Reactive Protein Total Protein Albumin Triglycerides Procalcitonin C. difficile (EIA) [facility] 10/08/20 10/09/20 10/09/20 12:33 05:15 05:50 WBC 12.9 H RBC Hgb Hct RDW Plt Count 127 L Neutrophils # 12.0 H Neutrophils # (Manual) Lymphocytes # 0.4 L Lymphocytes # (Manual) Metamyelocytes # (Man) Myelocytes # (Manual) APTT D-Dimer ABG pH 7.29 L ABG pCO2 67 H ABG pO2 75 L ABG HCO3 32 H ABG Total CO2 35 H ABG O2 Saturation Sodium Potassium Chloride Carbon Dioxide BUN Creatinine Glucose POC Glucose (mg/dL) 162 H Calcium Magnesium Ferritin AST ALT Alkaline Phosphatase Lactate Dehydrogenase Creatine Kinase C-Reactive Protein Total Protein Albumin Triglycerides Procalcitonin C. difficile (EIA) Intrp 10/09/20 10/09/20 10/09/20 05:50 05:50 05:50 WBC RBC Hgb Hct RDW Plt Count Neutrophils # Neutrophils # (Manual) Lymphocytes # Lymphocytes # (Manual) Metamyelocytes # (Man) Myelocytes # (Manual) APTT D-Dimer 23.24 H ABG pH ABG pCO2 ABG pO2 ABG HCO3 ABG Total CO2 ABG O2 Saturation Sodium Potassium 5.3 H Chloride Carbon Dioxide 33 H BUN 49 H Creatinine Glucose 149 H POC Glucose (mg/dL) Calcium 7.7 L Magnesium Ferritin 1460.2 H AST ALT Alkaline Phosphatase Lactate Dehydrogenase 5465 H Creatine Kinase C-Reactive Protein 17.6 H Total Protein Albumin Triglycerides Procalcitonin 0.14 H C. difficile (EIA) Intrp 10/09/20 10/09/20 10/09/20 09:46 11:38 23:25 WBC RBC Hgb Hct RDW Plt Count Neutrophils # Neutrophils # (Manual) Lymphocytes # Lymphocytes # (Manual) Metamyelocytes # (Man) Myelocytes # (Manual) APTT 20.8 L 46.9 H D-Dimer ABG pH ABG pCO2 ABG pO2 ABG HCO3 ABG Total CO2 ABG O2 Saturation Sodium Potassium Chloride Carbon Dioxide BUN Creatinine Glucose POC Glucose (mg/dL) 147 H Calcium Magnesium Ferritin AST ALT Alkaline Phosphatase Lactate Dehydrogenase Creatine Kinase C-Reactive Protein Total Protein Albumin Triglycerides Procalcitonin C. difficile (EIA) Intr 10/09/20 10/10/20 10/10/20 23:26 04:54 04:55 WBC 16.3 H RBC Hgb Hct RDW Plt Count Neutrophils # Neutrophils # (Manual) 14.30 H Lymphocytes # Lymphocytes # (Manual) 0.49 L Metamyelocytes # (Man) 0.33 H Myelocytes # (Manual) 0.16 H APTT D-Dimer ABG pH ABG pCO2 ABG pO2 ABG HCO3 ABG Total CO2 ABG O2 Saturation Sodium Potassium Chloride Carbon Dioxide BUN Creatinine Glucose POC Glucose (mg/dL) 154 H 165 H Calcium Magnesium Ferritin AST ALT Alkaline Phosphatase Lactate Dehydrogenase Creatine Kinase C-Reactive Protein Total Protein Albumin Triglycerides Procalcitonin C. difficile (EIA) Intr 10/10/20 10/10/20 10/10/20 04:55 04:55 04:55 WBC RBC Hgb Hct RDW Plt Count Neutrophils # Neutrophils # (Manual) Lymphocytes # Lymphocytes # (Manual) Metamyelocytes # (Man) Myelocytes # (Manual) APTT D-Dimer 10.90 H ABG pH ABG pCO2 ABG pO2 ABG HCO3 ABG Total CO2 ABG O2 Saturation Sodium Potassium 5.2 H Chloride Carbon Dioxide 36 H BUN 51 H Creatinine Glucose 136 H POC Glucose (mg/dL) Calcium 8.2 L Magnesium Ferritin 2680.2 H AST ALT Alkaline Phosphatase Lactate Dehydrogenase 6124 H Creatine Kinase C-Reactive Protein 11.7 H Total Protein Albumin Triglycerides Procalcitonin 0.14 H C. difficile (EIA) Intrp 10/10/20 10/10/20 10/10/20 05:50 06:30 11:32 WBC RBC Hgb Hct RDW Plt Count Neutrophils # Neutrophils # (Manual) Lymphocytes # Lymphocytes # (Manual) Metamyelocytes # (Man) Myelocytes # (Manual) APTT 42.4 H D-Dimer ABG pH 7.34 L ABG pCO2 67 H ABG pO2 74 L ABG HCO3 36 H ABG Total CO2 38 H ABG O2 Saturation Sodium Potassium Chloride Carbon Dioxide BUN Creatinine Glucose POC Glucose (mg/dL) 144 H Calcium Magnesium Ferritin AST ALT Alkaline Phosphatase Lactate Dehydrogenase Creatine Kinase C-Reactive Protein Total Protein Albumin Triglycerides Procalcitonin C. difficile (EIA) Intrp 10/10/20 10/10/20 10/11/20 12:00 17:07 05:10 WBC 20.2 H RBC Hgb 11.1 L Hct RDW Plt Count Neutrophils # Neutrophils # (Manual) 16.10 H Lymphocytes # Lymphocytes # (Manual) Metamyelocytes # (Man) 1.01 H Myelocytes # (Manual) 0.81 H APTT 63.6 H D-Dimer ABG pH ABG pCO2 ABG pO2 ABG HCO3 ABG Total CO2 ABG O2 Saturation Sodium Potassium Chloride Carbon Dioxide BUN Creatinine Glucose POC Glucose (mg/dL) 142 H Calcium Magnesium Ferritin AST ALT Alkaline Phosphatase Lactate Dehydrogenase Creatine Kinase C-Reactive Protein Total Protein Albumin Triglycerides Procalcitonin C. difficile (EIA) Intrp 10/11/20 10/11/20 10/11/20 05:10 05:10 06:10 WBC RBC Hgb Hct RDW Plt Count Neutrophils # Neutrophils # (Manual) Lymphocytes # Lymphocytes # (Manual) Metamyelocytes # (Man) Myelocytes # (Manual) APTT 54.2 H D-Dimer 6.31 H ABG pH ABG pCO2 65 H ABG pO2 67 L ABG HCO3 36 H ABG Total CO2 38 H ABG O2 Saturation 93.1 L Sodium Potassium Chloride Carbon Dioxide 36 H BUN 54 H Creatinine Glucose 122 H POC Glucose (mg/dL) Calcium 7.8 L Magnesium Ferritin AST ALT Alkaline Phosphatase Lactate Dehydrogenase 4769 H Creatine Kinase C-Reactive Protein 10.5 H Total Protein Albumin Triglycerides Procalcitonin C. difficile (EIA) Intrp 10/12/20 10/12/20 10/12/20 04:40 04:40 04:40 WBC 23.8 H RBC Hgb Hct RDW Plt Count Neutrophils # 21.8 H Neutrophils # (Manual) Lymphocytes # Lymphocytes # (Manual) Metamyelocytes # (Man) Myelocytes # (Manual) APTT D-Dimer 8.66 H ABG pH ABG pCO2 ABG pO2 ABG HCO3 ABG Total CO2 ABG O2 Saturation Sodium Potassium 5.8 H Chloride Carbon Dioxide 36 H BUN 50 H Creatinine Glucose 123 H POC Glucose (mg/dL) Calcium 8.0 L Magnesium Ferritin 1237.9 H AST ALT Alkaline Phosphatase Lactate Dehydrogenase 4302 H Creatine Kinase C-Reactive Protein Total Protein Albumin Triglycerides Procalcitonin C. difficile (EIA) Intrp 10/12/20 10/12/20 10/13/20 06:20 15:24 04:00 WBC RBC Hgb Hct RDW Plt Count Neutrophils # Neutrophils # (Manual) Lymphocytes # Lymphocytes # (Manual) Metamyelocytes # (Man) Myelocytes # (Manual) APTT D-Dimer ABG pH 7.33 L ABG pCO2 63 H ABG pO2 122 H ABG HCO3 33 H ABG Total CO2 35 H ABG O2 Saturation 98.4 H Sodium Potassium 5.7 H Chloride Carbon Dioxide BUN Creatinine Glucose POC Glucose (mg/dL) Calcium Magnesium Ferritin AST ALT Alkaline Phosphatase Lactate Dehydrogenase 4023 H Creatine Kinase C-Reactive Protein Total Protein Albumin Triglycerides Procalcitonin C. difficile (EIA) Intrp 10/13/20 10/13/20 10/13/20 04:00 04:00 04:00 WBC 31.1 H RBC Hgb Hct RDW Plt Count Neutrophils # Neutrophils # (Manual) 27.90 H Lymphocytes # Lymphocytes # (Manual) Metamyelocytes # (Man) 0.62 H Myelocytes # (Manual) 0.62 H APTT D-Dimer 9.81 H ABG pH ABG pCO2 ABG pO2 ABG HCO3 ABG Total CO2 ABG O2 Saturation Sodium Potassium Chloride Carbon Dioxide BUN Creatinine Glucose POC Glucose (mg/dL) Calcium Magnesium Ferritin AST ALT Alkaline Phosphatase Lactate Dehydrogenase Creatine Kinase C-Reactive Protein Total Protein Albumin Triglycerides Procalcitonin 0.17 H C. difficile (EIA) Intrp 10/13/20 10/13/20 10/14/20 04:55 06:00 03:40 WBC RBC Hgb Hct RDW Plt Count Neutrophils # Neutrophils # (Manual) Lymphocytes # Lymphocytes # (Manual) Metamyelocytes # (Man) Myelocytes # (Manual) APTT D-Dimer ABG pH 7.34 L ABG pCO2 61 H ABG pO2 71 L ABG HCO3 33 H ABG Total CO2 35 H ABG O2 Saturation 93.4 L Sodium Potassium 5.2 H Chloride Carbon Dioxide 33 H 34 H BUN 62 H 65 H Creatinine 1.17 H 1.12 H Glucose 146 H 138 H POC Glucose (mg/dL) Calcium 7.5 L 7.5 L Magnesium Ferritin 956.0 H 712.3 H AST 51 H ALT 167 H Alkaline Phosphatase Lactate Dehydrogenase 4023 H 3378 H Creatine Kinase C-Reactive Protein Total Protein 5.3 L Albumin 2.9 L Triglycerides Procalcitonin C. difficile (EIA) Intrp 10/14/20 10/14/20 10/14/20 03:40 03:40 03:40 WBC 26.5 H RBC Hgb 10.6 L Hct 33.9 L RDW 15.7 H Plt Count Neutrophils # 24.1 H Neutrophils # (Manual) Lymphocytes # Lymphocytes # (Manual) Metamyelocytes # (Man) Myelocytes # (Manual) APTT D-Dimer 9.63 H ABG pH ABG pCO2 ABG pO2 ABG HCO3 ABG Total CO2 ABG O2 Saturation Sodium Potassium Chloride Carbon Dioxide BUN Creatinine Glucose POC Glucose (mg/dL) Calcium Magnesium Ferritin AST ALT Alkaline Phosphatase Lactate Dehydrogenase Creatine Kinase C-Reactive Protein Total Protein Albumin Triglycerides Procalcitonin 0.17 H C. difficile (EIA) Intrp 10/14/20 10/15/20 10/15/20 04:55 04:47 05:00 WBC 21.8 H RBC 3.70 L Hgb 10.7 L Hct 33.0 L RDW 16.1 H Plt Count Neutrophils # 20.0 H Neutrophils # (Manual) Lymphocytes # Lymphocytes # (Manual) Metamyelocytes # (Man) Myelocytes # (Manual) APTT D-Dimer ABG pH ABG pCO2 57 H 53 H ABG pO2 57 L* 77 L ABG HCO3 33 H 33 H ABG Total CO2 35 H 35 H ABG O2 Saturation 89.2 L Sodium Potassium Chloride Carbon Dioxide BUN Creatinine Glucose POC Glucose (mg/dL) Calcium Magnesium Ferritin AST ALT Alkaline Phosphatase Lactate Dehydrogenase Creatine Kinase C-Reactive Protein Total Protein Albumin Triglycerides Procalcitonin C. difficile (EIA) Intrp 10/15/20 10/15/20 10/15/20 05:00 05:00 05:00 WBC RBC Hgb Hct RDW Plt Count Neutrophils # Neutrophils # (Manual) Lymphocytes # Lymphocytes # (Manual) Metamyelocytes # (Man) Myelocytes # (Manual) APTT D-Dimer 8.70 H ABG pH ABG pCO2 ABG pO2 ABG HCO3 ABG Total CO2 ABG O2 Saturation Sodium Potassium Chloride Carbon Dioxide 33 H BUN 66 H Creatinine 1.05 H Glucose 128 H POC Glucose (mg/dL) Calcium 7.8 L Magnesium 2.6 H Ferritin 712.4 H AST 46 H ALT 141 H Alkaline Phosphatase Lactate Dehydrogenase 1161 H Creatine Kinase C-Reactive Protein Total Protein 5.4 L Albumin 3.0 L Triglycerides 300.0 H Procalcitonin C. difficile (EIA) Intrp 10/15/20 10/15/20 10/16/20 09:05 18:33 04:15 WBC RBC Hgb Hct RDW Plt Count Neutrophils # Neutrophils # (Manual) Lymphocytes # Lymphocytes # (Manual) Metamyelocytes # (Man) Myelocytes # (Manual) APTT D-Dimer 8.36 H ABG pH ABG pCO2 48 H ABG pO2 54 L* ABG HCO3 32 H ABG Total CO2 33 H ABG O2 Saturation 88.6 L Sodium Potassium Chloride Carbon Dioxide 32 H BUN 66 H Creatinine Glucose 125 H POC Glucose (mg/dL) Calcium 8.1 L Magnesium Ferritin 771.1 H AST 47 H ALT 119 H Alkaline Phosphatase Lactate Dehydrogenase 2902 H Creatine Kinase C-Reactive Protein 19.0 H Total Protein 5.3 L Albumin 2.9 L Triglycerides Procalcitonin C. difficile (EIA) Intrp 10/16/20 10/16/20 10/16/20 04:15 04:15 05:13 WBC 21.6 H RBC 3.70 L Hgb 11.2 L Hct 32.5 L RDW 16.4 H Plt Count Neutrophils # 20.4 H Neutrophils # (Manual) Lymphocytes # 0.6 L Lymphocytes # (Manual) Metamyelocytes # (Man) Myelocytes # (Manual) APTT D-Dimer 8.42 H ABG pH ABG pCO2 51 H ABG pO2 69 L ABG HCO3 32 H ABG Total CO2 34 H ABG O2 Saturation Sodium Potassium Chloride Carbon Dioxide BUN Creatinine Glucose POC Glucose (mg/dL) Calcium Magnesium Ferritin AST ALT Alkaline Phosphatase Lactate Dehydrogenase Creatine Kinase C-Reactive Protein Total Protein Albumin Triglycerides Procalcitonin C. difficile (EIA) Intrp 10/16/20 10/16/20 10/17/20 10:37 10:40 04:05 WBC RBC Hgb Hct RDW Plt Count Neutrophils # Neutrophils # (Manual) Lymphocytes # Lymphocytes # (Manual) Metamyelocytes # (Man) Myelocytes # (Manual) APTT D-Dimer ABG pH 7.47 H ABG pCO2 ABG pO2 55 L* ABG HCO3 31 H ABG Total CO2 33 H ABG O2 Saturation 90.2 L Sodium Potassium Chloride Carbon Dioxide BUN 63 H Creatinine Glucose 137 H POC Glucose (mg/dL) Calcium 8.0 L Magnesium Ferritin 994.7 H AST 38 H ALT 97 H Alkaline Phosphatase Lactate Dehydrogenase Creatine Kinase C-Reactive Protein 4.2 H Total Protein 5.5 L Albumin 2.9 L Triglycerides Procalcitonin C. difficile (EIA) Intrp Positive A 10/17/20 10/17/20 10/17/20 04:05 04:05 05:08 WBC 29.4 H RBC Hgb Hct RDW 16.8 H Plt Count Neutrophils # 27.4 H Neutrophils # (Manual) Lymphocytes # 0.8 L Lymphocytes # (Manual) Metamyelocytes # (Man) Myelocytes # (Manual) APTT D-Dimer 6.12 H ABG pH ABG pCO2 ABG pO2 63 L ABG HCO3 28 H ABG Total CO2 30 H ABG O2 Saturation 92.2 L Sodium Potassium Chloride Carbon Dioxide BUN Creatinine Glucose POC Glucose (mg/dL) Calcium Magnesium Ferritin AST ALT Alkaline Phosphatase Lactate Dehydrogenase Creatine Kinase C-Reactive Protein Total Protein Albumin Triglycerides Procalcitonin C. difficile (EIA) Intrp 10/18/20 10/18/2010/18/21 05:24 06:50 06:50 WBC 31.3 H RBC Hgb Hct RDW 17.1 H Plt Count Neutrophils # 29.8 H Neutrophils # (Manual) Lymphocytes # 0.5 L Lymphocytes # (Manual) Metamyelocytes # (Man) Myelocytes # (Manual) APTT D-Dimer ABG pH ABG pCO2 47 H ABG pO2 80 L ABG HCO3 27 H ABG Total CO2 29 H ABG O2 Saturation Sodium Potassium Chloride 109 H Carbon Dioxide BUN 72 H Creatinine 1.10 H Glucose 153 H POC Glucose (mg/dL) Calcium 7.6 L Magnesium Ferritin AST ALT 85 H Alkaline Phosphatase Lactate Dehydrogenase 2440 H Creatine Kinase C-Reactive Protein 4.5 H Total Protein 5.5 L Albumin 2.9 L Triglycerides Procalcitonin C. difficile (EIA) Intrp 10/18/20 10/19/20 10/19/20 06:50 04:15 04:15 WBC 27.0 H RBC Hgb 11.2 L Hct RDW 16.9 H Plt Count Neutrophils # 25.3 H Neutrophils # (Manual) Lymphocytes # 0.5 L Lymphocytes # (Manual) Metamyelocytes # (Man) Myelocytes # (Manual) APTT D-Dimer 4.96 H 3.66 H ABG pH ABG pCO2 ABG pO2 ABG HCO3 ABG Total CO2 ABG O2 Saturation Sodium Potassium Chloride Carbon Dioxide BUN Creatinine Glucose POC Glucose (mg/dL) Calcium Magnesium Ferritin AST ALT Alkaline Phosphatase Lactate Dehydrogenase Creatine Kinase C-Reactive Protein Total Protein Albumin Triglycerides Procalcitonin C. difficile (EIA) Intrp 10/19/20 10/19/20 10/20/20 04:15 05:07 04:40 WBC 22.8 H RBC 3.79 L Hgb 11.2 L Hct 33.3 L RDW 16.9 H Plt Count Neutrophils # 21.1 H Neutrophils # (Manual) Lymphocytes # 0.5 L Lymphocytes # (Manual) Metamyelocytes # (Man) Myelocytes # (Manual) APTT D-Dimer ABG pH ABG pCO2 ABG pO2 ABG HCO3 28 H ABG Total CO2 29 H ABG O2 Saturation 97.6 H Sodium Potassium Chloride 112 H Carbon Dioxide BUN 84 H Creatinine 1.16 H Glucose 170 H POC Glucose (mg/dL) Calcium 7.8 L Magnesium Ferritin 1664.8 H AST 65 H ALT 144 H Alkaline Phosphatase Lactate Dehydrogenase 2199 H Creatine Kinase C-Reactive Protein 3.6 H Total Protein 5.4 L Albumin 2.9 L Triglycerides Procalcitonin C. difficile (EIA) Intrp 10/20/20 10/20/20 10/20/20 04:40 04:40 05:51 WBC RBC Hgb Hct RDW Plt Count Neutrophils # Neutrophils # (Manual) Lymphocytes # Lymphocytes # (Manual) Metamyelocytes # (Man) Myelocytes # (Manual) APTT D-Dimer 2.93 H ABG pH 7.51 H ABG pCO2 ABG pO2 ABG HCO3 27 H ABG Total CO2 29 H ABG O2 Saturation 97.8 H Sodium 146 H Potassium Chloride 113 H Carbon Dioxide BUN 83 H Creatinine Glucose 150 H POC Glucose (mg/dL) Calcium 7.8 L Magnesium Ferritin AST ALT Alkaline Phosphatase Lactate Dehydrogenase 1974 H Creatine Kinase C-Reactive Protein 3.0 H Total Protein Albumin Triglycerides Procalcitonin C. difficile (EIA) Intrp Assessment and Plan Assessment: * Altered mental status, likely due to toxic metabolic encephalopathy. Etiology probably multifactorial. * Acute Covid 19 related pneumonia. * Ventilatory dependent respiratory failure, requiring tracheostomy and PEG placement today. * Mild hypernatremia * Elevated BUN with normal creatinine * Elevated LFTs. Plan: * Patient underwent EEG today, which was moderate to severely abnormal due to diffuse slowing of background activity in delta and some theta range. This is suggestive of generalized cerebral dysfunction as can be seen with encephalopathy of toxic, metabolic or anoxic causes. No obvious epileptiform activity was seen. * Treatment of other medical conditions as per IM and critical care. * We will check ammonia and TSH. * Supportive care. * Neurology will follow peripherally.
--- NOTE | 2020-10-20 22:16 | P.PN ---
Subjective This is a 67-year-old patient who follows with Dr. watkins . Patient was last seen in the ER about 5 days ago. She then had an having respiratory symptoms including cough for about 2 or 3 weeks prior to that. On this presentation is patient is altered sense. She was last seen normal at home on Monday. EMS was called out and they found the patient to be hypoxic with 46%. Patient was ventilated with a bag valve and pulse oxygenation improved. He was placed on a nonrebreather and brought here. Here patient's problem of BiPAP. And is some what delirious. Not able to give any history. Patient chronic stable medical conditions include diabetes, hypertension, hyperlipidemia, history of breast cancer with right mastectomy. No family members currently present. Admitted with acute severe bilateral COVID 19 pneumonia, acute severe hypoxic respiratory failure, acute metabolic encephalopathy, with delirium. Patient placed on oxygen. Decadron. Lovenox. Consultation to neurology, pulmonary. Lumbar puncture/CSF unremarkable. Patient was placed on BiPAP. Progression of respiratory status patient intubated on October 16. Run of [place] lizy with rapid ventricular rate-sinus rhythm. pt remains in icu intubated with altered mental status pending tracheostomy and PEG tube placement today, surgery team are following review of systems: n/a Active Medications Generic Name Dose Route Start Last Admin Trade Name Freq PRN Reason Stop Dose Admin Acetaminophen 650 mg 10/02/20 16:21 10/18/20 13:03 Acetaminophen Tab 325 Mg Tab PO 650 mg Q6HR PRN Administration Mild Pain or Fever > 100.5 Albuterol Sulfate 2 puff 10/03/20 23:18 10/20/20 20:57 Albuterol Hfa Inhaler INHALATION 2 puff RT-Q4H EILEEN Administration Albuterol Sulfate 2 puff 10/03/20 23:19 Albuterol Hfa Inhaler INHALATION RT-QID PRN Shortness Of Breath Or Wheezing Ascorbic Acid 1,000 mg 10/03/20 09:00 10/20/20 08:01 Ascorbic Acid 500 Mg Tab PO 1,000 mg DAILY EILEEN Administration Chlorhexidine Gluconate 15 ml 10/08/20 09:00 10/20/20 21:55 Chlorhexidine Gluconate 15 Ml Cup MUCOUS MEM 15 ml BID EILEEN Administration Cholecalciferol 100 mcg 10/03/20 09:00 10/20/20 08:01 Cholecalciferol 25 Mcg (1000 Iu) Tablet PO 100 mcg DAILY EILEEN Administration Dexamethasone 6 mg 10/15/20 09:00 10/20/20 08:01 Dexamethasone 2 Mg Tab PO 6 mg DAILY EILEEN Administration Famotidine 20 mg 10/07/20 10:15 10/20/20 21:55 Famotidine 20 Mg/2 Ml Vial IV 20 mg BID EILEEN Administration Furosemide 40 mg 10/18/20 09:00 10/20/20 08:01 Furosemide 10 Mg/Ml 4 Ml Vial IV 40 mg DAILY EILEEN Administration Amiodarone HCl 450 mg/ 250 mls @ 16.667 mls/hr 10/13/20 11:15 10/20/20 18:04 Dextrose/Water IV 0.5 mg/min .Q15H EILEEN 16.667 mls/hr Administration Protocol 0.5 MG/MIN Diltiazem HCl 125 mg/ Sodium 125 mls @ 20 mls/hr 10/13/20 15:45 10/20/20 15:35 Chloride IV Not Given .Q6H15M EILEEN 20 MG/HR Sodium Chloride 500 mls @ 20 mls/hr 10/13/20 17:00 10/20/20 18:05 Saline 0.9% IV 20 mls/hr .Q24H EILEEN Administration Metoprolol Tartrate 100 mg 10/13/20 09:00 10/20/20 16:00 Metoprolol Tartrate 50 Mg Tab PO Not Given TID EILEEN Vancomycin HCl 250 mg 10/17/20 00:00 10/20/20 18:06 Vancomycin Oral Solution 250 Mg/5 Ml Bottle PO 250 mg Q6HR EILEEN Administration Zinc Sulfate 220 mg 10/03/20 09:00 10/20/20 08:01 Zinc Sulfate 220 Mg Cap PO 220 mg DAILY EILEEN Administration Objective - Vital Signs Vital signs: Vital Signs Temp 99.0 F 10/20/20 12:00 Pulse 95 10/20/20 12:00 Resp 32 H 10/20/20 12:00 BP 104/70 10/20/20 12:00 Pulse Ox 96 10/20/20 12:00 Intake & Output 10/19/20 10/20/20 10/20/20 18:59 06:59 18:59 Intake Total 1580.639 891 307 Output Total 1405 1190 725 Balance 985.639 -299 -418 Weight 126.7 kg 125 kg Intake: IV 81 256 15 0.9 Normal Saline @ KVO 40 220 0.9 Normal Saline 41 36 15 Pressure Bags Intake, IV Titration 829.639 395 242 Amount Amiodarone 450 mg In 250 250 Dextrose 5% in Water 250 ml @ 0.5 MG/MIN 16.667 mls/hr IV .Q15H EILEEN Rx#: [id number] Diltiazem 125 mg In 246.667 125 122 Sodium Chloride 0.9% 100 ml @ 20 MG/HR 20 mls/hr IV .Q6H15M EILEEN Rx#: [id number] Norepinephrine 4 mg In 112.972 Sodium Chloride 0.9% 250 ml @ 0.05 MCG/KG/MIN 24. 003 mls/hr IV .[id number] EILEEN Rx#:[id number] Sodium Chloride 0.9% 500 220 20 120 ml 500 ml @ 20 mls/hr IV .Q24H EILEEN Rx#:[id number] Tube Feeding 520 210 Other 150 30 50 Output: Urine 1405 1190 725 Other: Voiding Method Indwelling Catheter Indwelling Catheter Indwelling Catheter ABP, PAP, CO, CI - Last Documented Arterial Blood Pressure 98/48 - Exam -GENERAL: The patient is altered mental status, AAOx0. obese. HEENT: Pupils are round and equally reacting to light. EOMI. No scleral icterus. No conjunctival pallor. Normocephalic, atraumatic. No pharyngeal erythema. No thyromegaly. CARDIOVASCULAR: S1 and S2 present. No murmurs, rubs, or gallops. PULMONARY: Chest is clear to auscultation, no wheezing or crackles ABDOMEN: Soft, nontender, nondistended, normoactive bowel sounds. No palpable organomegaly. MUSCULOSKELETAL: No joint swelling or deformity. EXTREMITIES: No cyanosis, clubbing, or pedal edema. NEUROLOGICAL: Gross neurological examination did not reveal any focal deficits. SKIN: No rashes. no petechiae. - Labs CBC & Chem 7: 10/20/20 04:40 10/20/20 04:40 Labs: Abnormal Lab Results - Last 24 Hours (Table) 10/20/20 10/20/20 10/20/20 Range/Units 04:40 04:40 04:40 WBC 22.8 H (3.8-10.6) k/uL RBC 3.79 L (3.80-5.40) m/uL Hgb 11.2 L (11.4-16.0) gm/dL Hct 33.3 L (34.0-46.0) % RDW 16.9 H (11.5-15.5) % Neutrophils # 21.1 H (1.3-7.7) k/uL Lymphocytes # 0.5 L (1.0-4.8) k/uL D-Dimer 2.93 H (<0.60) mg/L FEU ABG pH (7.35-7.45) ABG HCO3 (21-25) mmol/L ABG Total CO2 (19-24) mmol/L ABG O2 Saturation (94-97) % Sodium 146 H (137-145) mmol/L Chloride 113 H (98-107) mmol/L BUN 83 H (7-17) mg/dL Glucose 150 H (74-99) mg/dL Calcium 7.8 L (8.4-10.2) mg/dL Lactate Dehydrogenase 1974 H (313-618) U/L C-Reactive Protein 3.0 H (<1.0) mg/dL 10/20/20 Range/Units 05:51 WBC (3.8-10.6) k/uL RBC (3.80-5.40) m/uL Hgb (11.4-16.0) gm/dL Hct (34.0-46.0) % RDW (11.5-15.5) % Neutrophils # (1.3-7.7) k/uL Lymphocytes # (1.0-4.8) k/uL D-Dimer (<0.60) mg/L FEU ABG pH 7.51 H (7.35-7.45) ABG HCO3 27 H (21-25) mmol/L ABG Total CO2 29 H (19-24) mmol/L ABG O2 Saturation 97.8 H (94-97) % Sodium (137-145) mmol/L Chloride (98-107) mmol/L BUN (7-17) mg/dL Glucose (74-99) mg/dL Calcium (8.4-10.2) mg/dL Lactate Dehydrogenase (313-618) U/L C-Reactive Protein (<1.0) mg/dL Assessment and Plan Assessment: -COVID 19 pneumonia with acute hypoxic respiratory failure, going for tracheostomy and PEG tube placement -Paroxysmal atrial fibrillation, with RVR -AMS secondary to covid infection and metabolic encephalopathy -Transaminitis likely secondary to covid and hypotension -Gallstones, asymptomatic -Morbid obesity with BMI 41 -Acute UTI with cystitis from E. coli -Legal guardian: Krista patient's sister -Acute C. diff colitis Plan: This is a pleasant 67 years old female who presents with Covid pneumonia and hypoxia. Continue with Decadron, Zinc, vitamin C, vitamin D, and eliquis. oral vancomycin. Neurology and Pulmonary/critical care team on the case and follow-up with a recommendation. DVT and GI prophylaxis
[2020-10-21] MEDS: VANCOMYCIN ORAL SOLUTION 250 MG/5 ML BOTTLE PO SCH ×5 (00:06→23:27)
[2020-10-21] MEDS: DILTIAZEM 125 MG in SODIUM CHLORIDE 0.9% 100 ML IV SCH (03:06)
[2020-10-21] MEDS: ALBUTEROL HFA INHALER INHALATION SCH ×6 (03:49→23:12)
[2020-10-21 04:08] LABS: Anisocytosis Slight; Basophils % (A) 0 %; Eosinophils # (A) 0.1 k/uL (0-0.7); Eosinophils % (A) 0 %; HCT 30.9 % (34.0-46.0); HGB 10.4 gm/dL (11.4-16.0); Lymphocytes # (A) 0.5 k/uL (1.0-4.8); Lymphocytes % (A) 2 %; MCH 29.8 pg (25.0-35.0); MCHC 33.7 g/dL (31.0-37.0); MCV 88.6 fL (80.0-100.0); Mean Platelet Volume 8.3; Monocytes # (A) 0.7 k/uL (0-1.0); Monocytes % (A) 3 %; Neutrophils # (A) 18.7 k/uL (1.3-7.7); Neutrophils % (A) 93 %; Platelet Count 292 k/uL (150-450); RBC 3.49 m/uL (3.80-5.40); RDW 17.1 % (11.5-15.5)
[2020-10-21 04:30] LABS: C Reactive Protein 2.8 mg/dL (<1.0); Calcium 7.6 mg/dL (8.4-10.2); Potassium 4.2 mmol/L (3.5-5.1)
[2020-10-21 05:30] LABS: ABG Base Excess 2.7 mmol/L; ABG HCO3 27 mmol/L (21-25); ABG Oxygen Saturation 98.4 % (94-97); ABG PCO2 38 mmHg (35-45); ABG PH 7.45 (7.35-7.45); ABG PO2 113 mmHg (83-108); ABG TCO2 28 mmol/L (19-24); Allen Test Performed? Yes
[2020-10-21] MEDS: CHOLECALCIFEROL 25 MCG (1000 IU) TABLET PO SCH (08:02)
[2020-10-21] MEDS: dexAMETHasone 2 MG TAB PO SCH (08:02)
[2020-10-21] MEDS: METOPROLOL TARTRATE 50 MG TAB PO SCH ×3 (08:02→21:01)
[2020-10-21] MEDS: FAMOTIDINE 20 MG/2 ML VIAL IV SCH ×2 (08:02→20:41)
[2020-10-21] MEDS: ZINC SULFATE 220 MG CAP PO SCH (08:02)
[2020-10-21] MEDS: ASCORBIC ACID 500 MG TAB PO SCH (08:02)
[2020-10-21] MEDS: CHLORHEXIDINE GLUCONATE 15 ML CUP MUCOUS MEM SCH ×2 (08:03→20:41)
--- NOTE | 2020-10-21 08:10 | P.PN ---
Progress Note - Text This is a 60-year-old female with significant past medical history for former nicotine dependce, who presents with history failure related to COVID-19 infection pneumonia. She was diagnosed with COVID 09/23/2020. 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 We are following secondary to atrial fibrillation and atrial flutter with episodes of RVR. She was found to be in SVT and received 2 doses of adenosine, repeat EKG revealed A fib with RVR. She has been initiated on Cardizem drip, Amiodarone drip, heparin drip. She converted to sinus mechanism, Cardizem was discontinued and patient started on PO metoprolol. She started to have episodes of tachycardia consistent with atrial flutter and atrial fibrillation with RVR. She was re-initiated on Cardizem drip, Amiodarone drip, heparin drip. She was having episodes of rapid ventricular response when she is febrile. She was weaned off sedation 10/17/20. C. diff positive. Echocardiogram 10/03/20: EF 55-60%, trace MR, trace TR. 10/20/20: Patient remains intubated. She continues to be in atrial flutter, rate is controlled. Laboratory data reviewed, WBC 22.8, hemoglobin 11.2, platelets 281, sodium 146, potassium 4.0, creatinine 1.01 (1.16 yesterday). Currently maintained on amiodarone 0.5mg/min, Cardizem 20 mg per hour and metoprolol 100 mg three times a day. 24 hour urine output 2595 mL's. 10/21 Patient seen and examined. Patient went for trach and PEG yesterday. No issues per nursing. One of Metoprolol doses were not given yesterday. HR's controlled on oral Metoprolol and Cardizem drip at 20. GENERAL: No acute distress, maintained on mechanical ventilation AC FiO2 50%, PEEP 10. Patient has ET and OG tube Telemetry tracings indicate atrial flutter HR currently in the 80s. BP 103/57 HR 82, Tmax 99.7 SpO2 96% ASSESSMENT Paroxysmal atrial fibrillation/typical atrial flutter COVID 19 Acute hypoxic respiratory failure Acute Kidney Injury- improving PLAN Tani is on hold for procedure- restart when OK with surgery We will transition amiodarone drip to oral, and cardizem drip to oral Continue lopressor as ordered. Further recommendations based on clinical course.
[2020-10-21] MEDS: DILTIAZEM ORAL 60 MG TAB PO SCH ×4 (08:54→21:01)
[2020-10-21] MEDS: AMIODARONE 200 MG TAB PO SCH ×2 (08:54→20:41)
--- NOTE | 2020-10-21 10:02 | XR ---
EXAMINATION TYPE: XR chest 1V portable DATE OF EXAM: 10/21/2020 COMPARISON: Chest x-ray 10/20/2020 HISTORY: Tracheostomy tube placement TECHNIQUE: Single frontal view of the chest is obtained. FINDINGS: There is been interval removal of endotracheal tube and orogastric tube, placement of trac heostomy tube which is overlying the tracheal air column. Left-sided central venous catheter shows th e distal tip over the cavoatrial junction level. There is no evident pneumothorax or pleural effusion . Bilateral airspace disease persists. Cardiac mediastinal silhouette shows a similar appearance. Aor ta is dense. IMPRESSION: Correlate for pneumonia.
[2020-10-21] MEDS: DEXTROSE 5% IN WATER 1,000 ML IV SCH ×2 (11:56→23:27)
--- NOTE | 2020-10-21 12:29 | P.PN ---
<Mora Monk - Last Filed: 10/21/20 12:20> Subjective Progress Note Date: 10/21/20 CHIEF COMPLAINT: Respiratory failure HISTORY OF PRESENT ILLNESS: Patient remains in the ICU and intubated. She is admitted to the hospital with an acute hypoxic respiratory failure secondary to acute COVID-19 pneumonia and evidence of ARDS. Patient is status post tracheostomy and PEG tube placement. She only had 5 residual of gastric contents from PEG tube today. Patient is followed by cardiology in regards to her atrial fibrillation. They are planning on restarting the Eliquis tonight. Afebrile. WBC 20 hemoglobin 10.4 sodium 140 and creatinine 1.03 PHYSICAL EXAM: VITAL SIGNS: Reviewed. GENERAL: Well-developed in no acute distress. HEENT: No sclera icterus. Moist buccal mucosa. Head is atraumatic, normocephalic. Tracheostomy site clean dry and intact ABDOMEN: Soft. Nondistended. Nontender. PEG tube site clean dry and intact NEUROLOGIC: Patient is intubated ASSESSMENT: 1. Acute hypoxic respiratory failure secondary to COVID-19 pneumonia with prolonged need for mechanical ventilation. Status post tracheostomy placement 2. Moderate protein calorie malnutrition status post PEG tube placement 3. Paroxysmal atrial fibrillation 4. C. diff colitis 5. Toxic Metabolic encephalopathy PLAN: -Continue ICU management -Continue supportive care -Okay to restart Eliquis tonight from surgical standpoint -Okay to start tube feedings per dietitian recommendation Physician Oven Roaster note has been reviewed by physician. Signing provider agrees with the documented findings, assessment, and plan of care. Objective - Vital Signs Vital signs: Vital Signs Temp 98.8 F 10/21/20 12:00 Pulse 76 10/21/20 12:00 Resp 28 H 10/21/20 12:00 BP 100/64 10/21/20 12:00 Pulse Ox 96 10/21/20 12:00 Intake & Output 10/20/20 10/21/20 10/21/20 18:59 06:59 18:59 Intake Total 1218.671 514.667 335 Output Total 1190 950 480 Balance 28.671 -435.333 -145 Weight 127.1 kg Intake: IV 580 256 35 0.9 Normal Saline @ KVO 220 20 0.9 Normal Saline 30 36 15 Pressure Bags Intake, IV Titration 573.671 258.667 230 Amount Amiodarone 450 mg In 231.671 Dextrose 5% in Water 250 ml @ 0.5 MG/MIN 16.667 mls/hr IV .Q15H EILEEN Rx#: [id number] Dextrose 5% in Water 1, 150 000 ml @ 75 mls/hr IV . [id number] EILEEN Rx#:[id number] Diltiazem 125 mg In 122 238.667 Sodium Chloride 0.9% 100 ml @ 20 MG/HR 20 mls/hr IV .Q6H15M EILEEN Rx#: [id number] Sodium Chloride 0.9% 500 220 20 80 ml 500 ml @ 20 mls/hr IV .Q24H EILEEN Rx#:[id number] Tube Feeding 0 Other 65 70 Output: Urine 1185 950 480 Estimated Blood Loss 5 Other: Voiding Method Indwelling Catheter Indwelling Catheter Indwelling Catheter ABP, PAP, CO, CI - Last Documented Arterial Blood Pressure 108/57 - Labs CBC & Chem 7: 10/21/20 03:50 10/21/20 03:50 Labs: Abnormal Lab Results - Last 24 Hours (Table) 10/21/20 10/21/20 10/21/20 Range/Units 03:50 03:50 03:50 WBC 20.0 H (3.8-10.6) k/uL RBC 3.49 L (3.80-5.40) m/uL Hgb 10.4 L (11.4-16.0) gm/dL Hct 30.9 L (34.0-46.0) % RDW 17.1 H (11.5-15.5) % Neutrophils # 18.7 H (1.3-7.7) k/uL Lymphocytes # 0.5 L (1.0-4.8) k/uL D-Dimer 4.03 H (<0.60) mg/L FEU ABG pO2 (83-108) mmHg ABG HCO3 (21-25) mmol/L ABG Total CO2 (19-24) mmol/L ABG O2 Saturation (94-97) % Sodium 149 H (137-145) mmol/L Chloride 118 H (98-107) mmol/L BUN 78 H (7-17) mg/dL Glucose 142 H (74-99) mg/dL Calcium 7.6 L (8.4-10.2) mg/dL Lactate Dehydrogenase 1968 H (313-618) U/L C-Reactive Protein 2.8 H (<1.0) mg/dL 10/21/20 Range/Units 05:24 WBC (3.8-10.6) k/uL RBC (3.80-5.40) m/uL Hgb (11.4-16.0) gm/dL Hct (34.0-46.0) % RDW (11.5-15.5) % Neutrophils # (1.3-7.7) k/uL Lymphocytes # (1.0-4.8) k/uL D-Dimer (<0.60) mg/L FEU ABG pO2 113 H (83-108) mmHg ABG HCO3 27 H (21-25) mmol/L ABG Total CO2 28 H (19-24) mmol/L ABG O2 Saturation 98.4 H (94-97) % Sodium (137-145) mmol/L Chloride (98-107) mmol/L BUN (7-17) mg/dL Glucose (74-99) mg/dL Calcium (8.4-10.2) mg/dL Lactate Dehydrogenase (313-618) U/L C-Reactive Protein (<1.0) mg/dL <Jamal Villa - Last Filed: 10/21/20 16:52> Subjective As above. Patient doing well today. No bleeding. No significant gastric contents on aspiration. Begin tube feeds. Resume a liquids later today. Objective - Vital Signs Vital signs: Vital Signs Temp 98.8 F 10/21/20 16:00 Pulse 85 10/21/20 16:00 Resp 17 10/21/20 16:00 BP 111/74 10/21/20 16:00 Pulse Ox 97 10/21/20 16:00 Intake & Output 10/20/20 10/21/20 10/21/20 18:59 06:59 18:59 Intake Total 1218.671 514.667 674 Output Total 1190 950 825 Balance 28.671 -435.333 -151 Weight 127.1 kg Intake: IV 580 256 35 0.9 Normal Saline @ KVO 220 20 0.9 Normal Saline 30 36 15 Pressure Bags Intake, IV Titration 573.671 258.667 455 Amount Amiodarone 450 mg In 231.671 Dextrose 5% in Water 250 ml @ 0.5 MG/MIN 16.667 mls/hr IV .Q15H EILEEN Rx#: [id number] Dextrose 5% in Water 1, 375 000 ml @ 75 mls/hr IV . [id number] EILEEN Rx#:[id number] Diltiazem 125 mg In 122 238.667 Sodium Chloride 0.9% 100 ml @ 20 MG/HR 20 mls/hr IV .Q6H15M EILEEN Rx#: [id number] Sodium Chloride 0.9% 500 220 20 80 ml 500 ml @ 20 mls/hr IV .Q24H EILEEN Rx#:[id number] Tube Feeding 0 64 Other 65 120 Output: Urine 1185 950 825 Estimated Blood Loss 5 Other: Voiding Method Indwelling Catheter Indwelling Catheter Indwelling Catheter ABP, PAP, CO, CI - Last Documented Arterial Blood Pressure 108/57 - Labs CBC & Chem 7: 10/21/20 03:50 10/21/20 03:50 Labs: Abnormal Lab Results - Last 24 Hours (Table) 10/21/20 10/21/20 10/21/20 Range/Units 03:50 03:50 03:50 WBC 20.0 H (3.8-10.6) k/uL RBC 3.49 L (3.80-5.40) m/uL Hgb 10.4 L (11.4-16.0) gm/dL Hct 30.9 L (34.0-46.0) % RDW 17.1 H (11.5-15.5) % Neutrophils # 18.7 H (1.3-7.7) k/uL Lymphocytes # 0.5 L (1.0-4.8) k/uL D-Dimer 4.03 H (<0.60) mg/L FEU ABG pO2 (83-108) mmHg ABG HCO3 (21-25) mmol/L ABG Total CO2 (19-24) mmol/L ABG O2 Saturation (94-97) % Sodium 149 H (137-145) mmol/L Chloride 118 H (98-107) mmol/L BUN 78 H (7-17) mg/dL Glucose 142 H (74-99) mg/dL Calcium 7.6 L (8.4-10.2) mg/dL Lactate Dehydrogenase 1968 H (313-618) U/L C-Reactive Protein 2.8 H (<1.0) mg/dL 10/21/20 Range/Units 05:24 WBC (3.8-10.6) k/uL RBC (3.80-5.40) m/uL Hgb (11.4-16.0) gm/dL Hct (34.0-46.0) % RDW (11.5-15.5) % Neutrophils # (1.3-7.7) k/uL Lymphocytes # (1.0-4.8) k/uL D-Dimer (<0.60) mg/L FEU ABG pO2 113 H (83-108) mmHg ABG HCO3 27 H (21-25) mmol/L ABG Total CO2 28 H (19-24) mmol/L ABG O2 Saturation 98.4 H (94-97) % Sodium (137-145) mmol/L Chloride (98-107) mmol/L BUN (7-17) mg/dL Glucose (74-99) mg/dL Calcium (8.4-10.2) mg/dL Lactate Dehydrogenase (313-618) U/L C-Reactive Protein (<1.0) mg/dL
--- NOTE | 2020-10-21 12:46 | P.PN ---
Subjective Progress Note Date: 10/21/20 Principal diagnosis: Acute hypoxic respiratory failure secondary to acute COVID 19 pneumonitis This is a 60-year-old female with no previous significant medical history, on 09/23/20, she was diagnosed with acute covid 19 infection. Patient took [id number] medications. And yesterday she presented to the ER and she was found in atrial fibrillation with RVR. And her chest x-ray showed diffuse interstitial pneumonitis. Patient was found to have elevated inflammatory mar kers with LDH of 2894, and C-reactive protein of 8.2. Considering the patient had over 1 week of symptoms, she was felt to be outside the window for REM. Her atrial fibrillation and RVR was treated with Cardizem and later metoprolol orally. She was also placed on heparin. Chest x-ray was quite concerning. Patient required placement on a nonrebreather mask. Later placed on high flow airvo with a non-rebreather mask, and her O2 saturations remained marginal around 88-93%. I saw this patient this morning, and I recommended immediate transfer to the ICU. Chest x-ray was reviewed and it is consistent with acute Covid 19 pneumonitis. Her d-dimer was 0.98.CBC was relatively normal. LDH is up to 3596. And C-reactive protein is up to 76.8 after evaluating the patient, I recommended convalescent plasma. I also recommended actemra. Patient was reevaluated today on 10/04/2020, patient remains in the ICU, she is presently on BiPAP with IPAP of 14 EPAP of 6, and FiO2 is 100%. We ordered actemra and convalescent plasma on this patient. And I believe she received both. Patient was out of the window for REM. Remains on the Covid 19 cocktail. CBC is relatively normal d-dimer 0.73 lites are normal her inflammatory markers are high with LDH of 09/05/2005 and C-reactive protein of 75. Clinically the patient is about the same, not much change from yesterday, she has intermittent cough, and shortness of breath with any activity. Her pulmonary status is marginal at best. On 10/05/2020 and patient seen in follow-up in the intensive care unit. She remains on BiPAP support with pressures of 14/60 FiO2 of 100% with a pulse ox between 90-97%, afebrile, a bit hypertensive, with systolic between 160-180 and diastolic in 90-100. Patient is status post Tocilizumab 800 mg IV piggyback infusion on 10/03/2020 and she has received 1 unit of convalescent plasma on 10/03/2020. Continues on Decadron 6 mg daily, Lovenox 40 mg daily, Pepcid, IV fluids 0.9 normal saline infusing at 25 ML per hour. Today's labs have been reviewed, d-dimer 3.6, B1 is 32, creatinine 0.81, CO2 is 33, the rest of the electrolytes were unremarkable, ferritin level is 1414, AST is 79, which has improved, and ALT is 41 which is relatively stable, up slightly from 39, but overall improving, LDH remains significantly elevated at 3977, CRP is 45.6. Chest x-ray shows diffuse bilateral infiltrates. On 10/07/1999 patient seen in follow-up in the intensive care unit. She remains on BiPAP support on which she is most of the time, with pressures of 14/6, 100% FiO2. Pulse ox is 95%, low-grade fevers with a temp of 99.4 axillary this morning, hemodynamically patient remains stable, not on any drips, 0.9 normal saline at 20 ML per hour, today's d-dimer is up to 22.82, and the patient was started on therapeutic doses of Lovenox 120 mg twice daily, however we will switch the patient to 0.5 mg/kg dosing twice daily. Today's inflammatory markers are continue to trend up, LDH is up to 4670, and a CK is 607, and CRP is down some to 25.1. Abdominal ultrasound was completed in view of elevated liver enzymes and it was a severely limited exam suggesting mostly a collapsed gallbladder containing multiple gallstones, bile duct measures were within normal limits. Today's chest x-ray showed diffuse pleural parenchymal changes correlating with diffuse pneumonia. Hemodynamically patient has been stable, maintaining normal sinus rhythm, echocardiogram showed normal LV function without significant valvular abnormalities, cardiology is following and has been adjusting beta blockers for better heart rate and blood pressure control. On today's evaluation of 10/12/2020 seeing this patient for a follow-up. Is a 60-year-old male patient with COVID 19 pneumonia. Pneumonia and secondary hypoxic respiratory failure. The patient was intubated and placed on a mechanical ventilator. The patient was admitted to the ICU on 10/03/2020 and the patient was extubated on 10/07/2020. Initially the patient was on high flow oxygen which she failed and subsequently his condition progressed and the patient has to be intubated and placed on a mechanical ventilator. The patient has already received 2 units of convalescent plasma, the patient has received Tocilizumab and the patient is currently on steroids. On today's evaluation, the patient is sedated with propofol at 45 mcg/kg per minute and the patient is calm and comfortable successful mechanical ventilator. Propofol is running at 45 mics respiratory per minute. The patient was paralyzed earlier with Nimbex and this was discontinued and he had to be placed back and the patient is currently back on nimbex 1 mcg/kg per minute.. The patient is also intubated on a mechanical ventilator within assist-control at the rate of 30, FiO2 of 60%, PEEP 16 with a tidal volume of 400. Blood gases were noted. The ABG from this morning showed a pH of 7.32 with a pCO2 of 62 and pO2 of 122. The chest x-ray from today is unchanged and the patient has bilateral pulmonary infiltrates more so on the right lower lobe. ET tube is in a good location. As for the blood work, the patient has a white cell count of 23 with a hemoglobin of 12 and a d-dimer of 8.66, BUN is a 50 with a creatinine of 0.9, LDH level is 4302 and a CRP level is at 9.4. The patient is hemodynamically stable on no pressors. Patient was being performed earlier and currently is in a supine body position. The chest x-ray from today showing diffuse breath and pulmonary infiltrates and ET tube is in a good location. The patient is on a enteral feeding with vital high protein at the rate of 40 mL an hour. The neck fluid balance over the past 24 hours is -226 mL and there are no signs of any significant fluid overload. Producing adequate amount of urine output. The cardiac rhythm is A. fib/flutter and the patient is currently on Eliquis. The peak airway pressure is 34 anesthetic pressures around 33. On 10/13/2020 on seeing the patient for a follow-up. The patient remains in intensive care unit. This is a 60-year-old female patient with Covid interrelated pneumonia with hypoxic respiratory failure. The patient has been on a mechanical ventilator since 10/07/2020. The patient currently is on propofol which is running at 60 mcg/kg per minute and the patient is also on paralytics which is running in the form of Nimbex at 1 mcg/kg per minute. Attempts to wean off the Nimbex failed and the patient had to be paralyzed again. Meanwhile, the patient remains on a mechanical ventilator, assist control rate of 30 with an FiO2 of 40% and a PEEP of 16 and a tidal volume of 400. The blood gases from today shows a pH of 7.33 with a pCO2 of 61 and pO2 of 71. The peak airway pressures are 33 and a plateau airway pressure is 31. The chest x-ray from today show an stable bilateral pulmonary infiltrates, with right midlung and left lower lobe pulmonary infiltration and the chest x-ray findings are essentially stable since yesterday without any significant interval change. Her potassium level was at 5.7 and his morning and based on that the patient was given a dose of Kayexalate 30 Repeat potassium is pending for now. Meanwhile, the patient remains hemodynamically stable. The patient is on levo fed, at 0.06 mcg/kg per minute. This should be gradually weaned off today. The patient is on enteral feeding for nutritional support and the patient is on vital high protein at 40 mL an hour. The patient remains in episodes of atrial fibrillation/flutter and this morning is she is on Cardizem at 10 mg an hour and the patient was loaded again with amiodarone and maintained on a infusion of amiodarone at 0.5 she'll be switched back to oral amiodarone today. She remains on Eliquis 5 mg by mouth twice a day. Empiric antibiotic coverage with IV cefepime. She remains on Decadron 6 mg IV every 24 hours. IV fluids with normal saline at the rate of 25 mL an hour. The fluid balance over the past 24 hours has been -49 mL. 10/14/2020, I'm seeing the patient for a follow-up. The patient was intubated and she has been on a mechanical ventilator since 10/07/2020. I'm seeing her today in follow-up. She remains on propofol at 45 mcg/kg per minute and the patient is currently on Nimbex at 1 mcg/kg per minute. She is well sedated and paralyzed. Paralytic Cardizem being given to her daily basis. She failed yesterday and the same of discharge today. She had a mechanical ventilator assist control mode at the rate of 30 with an FiO2 of 40% and a PEEP of 12 with tidal volume of 400. Blood gases from today shows a pH of 7.3388 with a pCO2 of 57 and pO2 of 57. As for the chest x-ray, I do not see any interval change in the patient has diffuse bilateral pulmonary infiltrates. Peak airway pressure is 31 with a static pressure of 26. IV fluids with normal saline at the rate of 25 mL an hour. She is still having issues with atrial fibrillation. She is currently on a combination of Cardizem drip at the rate of 15 mg an hour and amiodarone at 0.5 mg per minute and metoprolol at a dose of 100 mg by mouth 3 times a day. Earlier this morning, the patient was still tachycardic and the patient was being considered for digoxin. Nevertheless, her heart rate currently is down at 9365 per minute. Earlier this morning it was in the 130s up to 160 range. Otherwise, the patient is on no pressors since yesterday, the patient's electrolytes today show improvement in her potassium down to 4.7 being given Kayexalate. BUN 65 with a creatinine of 1.1. The LDH level is 3378 which is still elevated although lower compared to yesterday and his CRP level is at 7.7. Serum bicarb is 34.. Calcitonin levels of 0.17 and the patient is currently on empiric antibiotic coverage with cefepime. Urine culture was showing gram-negative bacillus and the final culture are still pending for now. We will cefepime gram-negative bacilli fluid: Balance balance is positive of 1 L over the past 24 hours. 2020, the patient is being seen for a follow-up. He remains intubated on a mechanical ventilator. Currently on propofol running at 50 mcg/kg per minute and the patient wishes currently off Nimbex and the patient was taken off the paralytics yesterday. Meanwhile, the patient remains on a mechanical ventilator on assist control mode and she is on assist-control at the rate of 30 with an FiO2 of 50% and a PEEP currently is at 12 with a tidal volume of 400. The peak and static pressures are lower with a levels of 28 and 19 respectively. The blood gases from today shows a pH of 7.41 with a pCO2 of 53 and pO2 of 77 and t he patient's agitation is improved. The chest x-ray from today showing diffuse bilateral pulmonary infiltrates, unchanged with orotracheal tube being in a good location. The patient is being treated with Decadron 6 mg IV every 24 hours. She remains on Eliquis 5 mg by mouth twice a day. She has a d-dimer of 8.7 from today, slightly lower and the rest of the inflammatory markers are still pending for now. Meanwhile, hemodynamically, the patient is stable and she is on no pressors. Her atrial fibrillation/flutter is under much better control. She is currently in a flutter rhythm. Amiodarone is running at 0.5 mg per minute and the patient is also on metoprolol 100 mg by mouth 3 times a day and Cardizem at 15 mg an hour. The plan is to continue these per cardiology. The patient is also on empiric antibiotic coverage with IV cefepime. The pro calcitonin level was 0.17. The patient is afebrile. No respiratory secretions. Cultures of been all negative. I'm inclined to continue the antibiotics as the patient has E. coli in her urine off for 10/12. 10/16/2020, the patient remains on a mechanical ventilator. Unfortunately, she is not doing any much progress. She was taken off the Nimbex and she is still on her lipase for now. She is also on propofol running at 50 mcg/kg per minute. Unfortunately, she was having issues with oxygen desaturation yesterday. I had to make some ventilator changes and currently she is an assist-control mode at a rate of 30 with a FiO2 of 70% and a PEEP of 10 and a tidal volume of 400. The blood gases from this morning showed a pH of 7.4 with a pCO2 of 50 and pO2 of 89. Chest x-ray is unchanged with diffuse bilateral pulmonary infiltrates. She remains on Decadron 6 mg by mouth. She remains also and a A. fib flutter rhythm and after being controlled for a while, the patient went back to become tachycardic again despite being on a combination of metoprolol 100 mg 3 times a day, Cardizem drip and then amiodarone drip. She still has a coagulation with Eliquis. Discussed with cardiology. Not a candidate for cardioversion. IV antibiotics is emphatic and the patient's Prograf level is low at 0.17. She is afebrile. She is on enteral feeding for nutritional support and she is currently on vital high protein at the rate of 40 mL an hour. She has E. coli in the urine. She also had abnormal inflammatory markers with an LDH of 08/11/2001, CRP of 19, and a d-dimer level of 8.4. Around 7:00 this morning, the patient was becoming hypotensive and she was started on low-dose norepinephrine which is running at 5 g per minute. Her net fluid balance is - 2.6 L over the past 24 hours and the patient is receiving Lasix 40 mg IV push every 12 hours. She is also having some diarrhea and she has a fecal management system in place. Stool for C. diff will be checked before the injury. Note that the patient is receiving IV cefepime that was initially emphatic and later on antibiotic was kept on board because of E. coli in the urine. She also has corynebacterium in the sputum, a colonizer. 10/17/2020, the patient is being seen for a follow-up. She is on propofol and she remains off Nimbex. Propofol is running at 50 mcg/kg per minute. She is also on assist control mode of ventilation on a rate of 24, tidal volume of 450, FiO2 of 50% and a PEEP of 10. Peak airway pressure is 31. Static pressure is 2 8. Blood gases showed a pH of 7.43 with a pCO2 of 43 and pO2 of 63. She is breathing comfortably on a mechanical ventilator. The chest x-ray from today is showing some limited infiltration in lung bases left more than right. Orotracheal tube is in a good location. Comparing chest x-rays, she has marked improvement in the infiltration is noted on the right compared to the earlier chest x-ray from yesterday. Left side remains essentially unchanged. She is off paralytics. She remains in atrial fibrillation. Rate has been fluctuating. After being tachycardic for it some time, she improved and currently she is back having some ongoing tachycardia. Her heart rate Cardizem 150. The patient remains on amiodarone drip at 0.5 mg per minute that she is also on Cardizem drip at 15 mg an hour. The patient is also on Eliquis for long-term and coagulation regarding the ongoing atrial fibrillation. She remains on metoprolol 100 mg by mouth 3 times a day for rate control. Note that the p atient had become also hypotensive and the patient was started on norepinephrine infusion at the low-dose of 0.02 mics per kilogram per minute is being gradually weaned off. She is receiving enteral feeding for nutritional support with vital high protein at the rate of 40 mL an hour. For that overall fluid balance over the past 24 hours has been -2.1 L. The patient remains on Lasix 40 mg of push every 12 hours. She was having liquidy stool/bowel movements and the patient was further testing and she checked positive for C. diff and the patient was started on oral vancomycin. Note that her antibiotic coverage was with IV cefepime and this was essentially an empiric antibiotic coverage. Was found to have gram-negative UTI with Ecoli and the plan was to continue the antibiotics for a total of 5 days. The pro calcitonin level from 10/14/2020 WAS 0.17. FOR THE CORYNEBACTERIUM, IN THE SPUTUM, THIS IS LIKELY A COLONIZER. 10/18/2020, the patient has been off sedation since yesterday at 2 PM. Neurologically, she is still not awake. She may have some reflexes with deep painful stimulation such as grimacing. She is not withdrawing. Note that the patient has taken significant amount of sedation during her hospitalization and this may be a residual drug effect. She is on mechanical ventilator. On today's evaluation, she is on assist-control at the rate of 44 with a tidal vo lume of 450 and FiO2 of 50% with a PEEP of 10. Peak and static pressures are 26 and 24 respectively. Blood gases showed a pH of 7.37 with a pCO2 of 47 and pO2 of 80. Chest x-ray from today showing bilateral multifocal areas of reticular another opacities and infiltrates consistent with COVID-19 related pneumonia/ARDS. The patient is not having any significant orotracheal secretions. I had a lengthy discussion with the family and I discussed the case with her sister and the daughter and the [id number] and we have made decisions to proceed with a PEG and trach and the surgeon was going through the procedure will be up to the discretion of the family. The patient meanwhile is an atrial fibrillation. The rate is controlled at the rate of 116 and the patient is currently on anticoagulation withEliquis 5 mg by mouth twice a day. In terms of rate control she is still on Cardizem drip at 20 mg an hour and she is also on amiodarone at 0.5 mg per minute. She is also on Lopressor 100 mg by mouth 3 times a day. Cardiology rounded on the patient and he wanted to keep the same medications for now. The patient is also being diuresis with IV Lasix patient is receiving 40 mg IV every 12 hours. Once that is improving and the patient continues to be a negative fluid balance.Fluid balance was -5 94 mL over the past 24 hours. Meanwhile, the BUN is at 72 and the creatinine is at 1.1. Her inflammatory markers regarding COVID-19 showed a LDH level of 2440 on the d- dimer currently is at 4.96. CRP is at 4.5. She is receiving enteral feeding for nutritional support in the form of vital high protein at the rate of 32 mL an hour. She was having liquidy stool and this turned out to be consistent with C. diff colitis. She is currently on oral vancomycin. The diarrhea has slowed down since yesterday. No fever. The white cell count is currently elevated at 31. She is on IV cefepime regarding E. coli in her urine. She remains on a low dose of norepinephrine infusion at 0.02 micrograms per kilogram per minute. On 10/19/2020 patient seen in follow-up in the intensive care unit, patient has been off sedation for the last 2 days, and she remains unresponsive, and patient does not move extremities, at times she does withdraw to deep painful stimuli, has not open eyes to voice. She remains on mechanical ventilator support with assist control mode of ventilation, with a rate of 24, tidal volume is 450, FiO2 of 50%, and PEEP of 10. She is intubated with a #8 endotracheal tube, 2 6 at the lip, peak airway pressures 27, her static pressure is 22. Currently she is on amiodarone at 0.5 mg per minute, and she remains in atrial fibrillation with a heart rate which is better controlled at 83-98 BPM, blood pressure stable at 105/64, and patient is not requiring any vasopressor support. 0.9 normal saline is at a rate of 20 ML per hour, Cardizem drip is currently running at 20 mg per hour, patient was started on Eliquis for anticoagulation which is currently on hold for tracheostomy and PEG tube placement. Apparently the family got back to nursing staff and they are requesting Dr. Villa for surgical consultation for trach PEG tube placement, and they did consent to trach and PEG placement. Today's chest x-ray shows findings consistent with patient's history of COVID 19 pneumonia bilateral airspace disease no evident pneumothorax or pleural effusion. In terms of therapy patient remains on Decadron 6 mg daily, and patient is on 1 dose of Lasix, patient is in -723 mL net fluid balance over the last 24 hours, she is receiving nutritional support, she is tolerating it well, she was found to have C. diff colitis, she is still having liquidy diarrhea, and she is on oral vancomycin. Today's labs show improvement in the white blood cell count down to 27 on the hemoglobin is 11.2, d-dimer is 3.6, blood gases as mentioned above, sodium is 143, potassium is 4.0, chloride is 112, BUN of 84, creatinine is 1.16, ferritin level is 1664, LDH is trending down, 2199, and CRP is 3.6 On 10/20/2020 patient seen in follow-up in the intensive care unit, she remains intubated and sedated on mechanical ventilator, she has been off sedation since 10/17/2020 and her level of consciousness is still quite sedated, and patient has not open eyes to voice, and has not withdrawing from pain followed any meaningful commands, Tristan settings are assist control mode of ventilation with a rate of 24, tidal volumes 450, FiO2 of 50% and PEEP of 10, despite his bl ood gases show pO2 of 90, pCO2 35 and pH of 7.51, crit drips include amiodarone as 0.5 mg per hour, Nimbex has been off Coumadin to prevent has been off since 10/17/2020. No other drips at this time except for maintenance IV fluids at point and a saline at a rate of 20 ML per hour. Patient remains in A. fib/atrial flutter with a rate of 81 BPM. Her Eliquis has been placed on hold as the patient is scheduled for tracheostomy and PEG tube placement today with Dr. Mcmahon. Requiring any vasopressor support, she is receiving oral vancomycin for C. diff colitis, she continues on Decadron 6 mg daily, she is also on Cardizem at 20 mg per hour, she is on daily dose of IV Lasix 40 mg daily, and sh e is in negative fluid balance of 123 mL. Her chest x-ray today shows no evident interval change with bilateral airspace disease related to COVID 19 pneumonia. Today's labs have been reviewed, white blood cell count is down to 22.8, improving, hemoglobin 11.2, d-dimer is improving and is down to 2.93, blood gases as mentioned above, sodium is 146, potassium is 4.0, renal profile shows BUN of 83 and creatinine of 1.01, LDH is improving and is down to 1974, and CRP is 3. Woods catheter is in place and patient is producing urine output in the order of 100-175 ML per hour, fecal management system is in place, patient is still having liquidy diarrhea. On 10/21/2020 patient seen in follow-up in the intensive care unit, she is trached to the ventilator, she received her tracheostomy and PEG tube insertion yesterday on 10/20/2020, currently on assist control mode of ventilation with a rate of 24, tidal volumes 450, FiO2 is 50% and 10 of PEEP, this was blood gas shows pO2 113, pCO2 38, and pH of 7.45, she isn't on any sedation, she still quite lethargic and has not open eyes to voice, and has not followed any commands, she is 1.9 normal saline at 20 ML per hour, no other drips, she rem ains in atrial fibrillation atrial flutter with a controlled rate currently at 78 BPM, her Eliquis had been on hold for last 2 days for tracheostomy and PEG tube insertion, we will restarted tonight, she remains on Decadron 6 mg daily, she is on oral Cardizem 60 mg 4 times a day, and amiodarone 400 mg twice a day, she also remains on oral vancomycin for C. diff colitis. Today's chest x-ray has been reviewed showing no evident pneumothorax or pleural effusion, still has bilateral airspace disease related to COVID-19 pneumonia. Today's labs have been reviewed showing white blood cell count of 20, hemoglobin of 10.4, d-dimer is 4.04, sodium has increased and is currently at 149, potassium is 4.2, chloride is 118, CO2 is 29, BUN of 70, creatinine is 1.03, her LDH is relatively stable at 1968, CRP is 2.8. Tracheostomy and PEG tube insertion sites are clean dry and intact and we anticipate reinitiation of her tube feedings this afternoon. Objective - Vital Signs Vital signs: Vital Signs Temp 98.8 F 10/21/20 12:00 Pulse 76 10/21/20 12:00 Resp 28 H 10/21/20 12:00 BP 100/64 10/21/20 12:00 Pulse Ox 96 10/21/20 12:00 Intake & Output 10/20/20 10/21/20 10/21/20 18:59 06:59 18:59 Intake Total 1218.671 514.667 335 Output Total 1190 950 480 Balance 28.671 -435.333 -145 Weight 127.1 kg Intake: IV 580 256 35 0.9 Normal Saline @ KVO 220 20 0.9 Normal Saline 30 36 15 Pressure Bags Intake, IV Titration 573.671 258.667 230 Amount Amiodarone 450 mg In 231.671 Dextrose 5% in Water 250 ml @ 0.5 MG/MIN 16.667 mls/hr IV .Q15H EILEEN Rx#: [id number] Dextrose 5% in Water 1, 150 000 ml @ 75 mls/hr IV . [id number] EILEEN Rx#:[id number] Diltiazem 125 mg In 122 238.667 Sodium Chloride 0.9% 100 ml @ 20 MG/HR 20 mls/hr IV .Q6H15M EILEEN Rx#: [id number] Sodium Chloride 0.9% 500 220 20 80 ml 500 ml @ 20 mls/hr IV .Q24H EILEEN Rx#:[id number] Tube Feeding 0 Other 65 70 Output: Urine 1185 950 480 Estimated Blood Loss 5 Other: Voiding Method Indwelling Catheter Indwelling Catheter Indwelling Catheter ABP, PAP, CO, CI - Last Documented Arterial Blood Pressure 108/57 - Exam GENERAL EXAM: Unresponsive, comatose, intubated, 60-year-old morbidly obese white female, on assist control mode of ventilation with FiO2 of 50% and PEEP of 10 HEAD: Normocephalic/atraumatic. EYES: Normal reaction of pupils, equal size. Conjunctiva pink, sclera white. NOSE: Clear with pink turbinates. THROAT: No erythema or exudates. NECK: No masses, no JVD, no thyroid enlargement, no adenopathy. Midline tracheostomy, patient is connected to the ventilator, currently on assist control mode of ventilation CHEST: No chest wall deformity. Symmetrical expansion. LUNGS: Equal air entry with diffuse crackles but no wheeze, rhonchi or dullness. CVS: Irregular rate and rhythm, normal S1 and S2, no gallops, no murmurs, no rubs ABDOMEN: Soft, nontender. No hepatosplenomegaly, normal bowel sounds, no guarding or rigidity. PEG tube is in place, insertion site is clean dry and intact EXTREMITIES: No clubbing, no edema, no cyanosis, 2+ pulses and upper and lower extremities. MUSCULOSKELETAL: Muscle strength and tone normal. SPINE: No scoliosis or deformity SKIN: No rashes CENTRAL NERVOUS SYSTEM: Sedated, intubated No focal deficits, tone is normal in all 4 extremities. - Labs CBC & Chem 7: 10/21/20 03:50 10/21/20 03:50 Labs: Abnormal Lab Results - Last 24 Hours (Table) 10/21/20 10/21/20 10/21/20 Range/Units 03:50 03:50 03:50 WBC 20.0 H (3.8-10.6) k/uL RBC 3.49 L (3.80-5.40) m/uL Hgb 10.4 L (11.4-16.0) gm/dL Hct 30.9 L (34.0-46.0) % RDW 17.1 H (11.5-15.5) % Neutrophils # 18.7 H (1.3-7.7) k/uL Lymphocytes # 0.5 L (1.0-4.8) k/uL D-Dimer 4.03 H (<0.60) mg/L FEU ABG pO2 (83-108) mmHg ABG HCO3 (21-25) mmol/L ABG Total CO2 (19-24) mmol/L ABG O2 Saturation (94-97) % Sodium 149 H (137-145) mmol/L Chloride 118 H (98-107) mmol/L BUN 78 H (7-17) mg/dL Glucose 142 H (74-99) mg/dL Calcium 7.6 L (8.4-10.2) mg/dL Lactate Dehydrogenase 1968 H (313-618) U/L C-Reactive Protein 2.8 H (<1.0) mg/dL 10/21/20 Range/Units 05:24 WBC (3.8-10.6) k/uL RBC (3.80-5.40) m/uL Hgb (11.4-16.0) gm/dL Hct (34.0-46.0) % RDW (11.5-15.5) % Neutrophils # (1.3-7.7) k/uL Lymphocytes # (1.0-4.8) k/uL D-Dimer (<0.60) mg/L FEU ABG pO2 113 H (83-108) mmHg ABG HCO3 27 H (21-25) mmol/L ABG Total CO2 28 H (19-24) mmol/L ABG O2 Saturation 98.4 H (94-97) % Sodium (137-145) mmol/L Chloride (98-107) mmol/L BUN (7-17) mg/dL Glucose (74-99) mg/dL Calcium (8.4-10.2) mg/dL Lactate Dehydrogenase (313-618) U/L C-Reactive Protein (<1.0) mg/dL Assessment and Plan Plan: assessment: #1. Acute hypoxic respiratory failure secondary to acute COVID 19 related pneumonitis, status post Tocilizumab and 1 unit of convalescent plasma on 10/03/2020, admitted to the ICU on 10/03/2020, and intubated on 10/07/2020. Patient has had prolonged ventilator support and the plan is to proceed with tracheostomy and PEG tube placement, and the family has agreed to that. Patient has remained off sedation for the last 3 days, and her mentation remains quite altered, she is unresponsive to deep painful stimuli. Patient is status post tracheostomy and PEG tube insertion on 10/20/2020 #2. Episodes of A. fib with RVR, and patient is a combination of amiodarone drip at 0.5 mg/m, in addition to Cardizem drip at 15-20 mg per hour, and patient was started on Eliquis for anticoagulation which is currently on hold for possibility of tracheostomy and PEG tube placement #3. Increased d-dimer related to acute COVID-19, improving #4. Acute C. diff colitis, and patient does have evidence of E. coli urinary tract infection and patient has completed a course of cefepime which is currently discontinued #5. Sputum culture positive for Corynebacterium stratum likely a colonizer #6. Leukocytosis likely related to acute C. diff colitis, which is improving and patient is currently on oral vancomycin #7. History of paroxysmal atrial fibrillation #8. Increased transaminases related to acute viral pneumonia. Ultrasound abdomen was completed showing multiple gallbladder stones, however total bilirubin level is normal at 0.5 #9. Acute toxic metabolic encephalopathy, multifactorial #10. Hypernatremia related to free water deficit and diuretic therapy Plan: Discontinue Lasix Start D5W at 75 ML per hour Reinitiate tube feedings this afternoon RD recommendation Free water flushes 200 ML every 4 hours No ventilator setting changes Today's chest x-ray and lab work has been reviewed Continue oral vancomycin for C. diff colitis Continue once daily dose of Lasix Restart Eliquis tonight at 5 mg twice daily Continue current dose Decadron Keep off sedation We'll continue to follow Patient is ready for discharge to LTAC facility, and social work will be notified in regards to this We will obtain a PICC line and discontinue central line I performed a history & physical examination of the patient and discussed their management with my nurse practitioner, Ena Daly. I reviewed the nurse practitioner's note and agree with the documented findings and plan of care. Lung sounds are positive for diminished breath sounds. The findings and the impression was discussed with the patient. I attest to the documentation by the nurse practitioner. , Time with Patient: Greater than 30
[2020-10-21] MEDS ORDERED: LIDOCAINE 1% INJ 10MG/ML (20 ML MDV) ONE (14:38)
[2020-10-21] MEDS: SODIUM CHLORIDE 0.9% 500 ML 500 ML IV SCH (16:54)
[2020-10-21] MEDS: FUROSEMIDE 10 MG/ML 4 ML VIAL IV SCH (16:54)
[2020-10-21] MEDS: APIXABAN 5 MG TAB PO SCH (20:41)
--- NOTE | 2020-10-21 21:32 | P.PN ---
Subjective This is a 67-year-old patient who follows with Dr. watkins . Patient was last seen in the ER about 5 days ago. She then had an having respiratory symptoms including cough for about 2 or 3 weeks prior to that. On this presentation is patient is altered sense. She was last seen normal at home on Monday. EMS was called out and they found the patient to be hypoxic with 46%. Patient was ventilated with a bag valve and pulse oxygenation improved. He was placed on a nonrebreather and brought here. Here patient's problem of BiPAP. And is some what delirious. Not able to give any history. Patient chronic stable medical conditions include diabetes, hypertension, hyperlipidemia, history of breast cancer with right mastectomy. No family members currently present. Admitted with acute severe bilateral COVID 19 pneumonia, acute severe hypoxic respiratory failure, acute metabolic encephalopathy, with delirium. Patient placed on oxygen. Decadron. Lovenox. Consultation to neurology, pulmonary. Lumbar puncture/CSF unremarkable. Patient was placed on BiPAP. Progression of respiratory status patient intubated on October 16. [place] of [place] with rapid ventricular rate-sinus rhythm. pt remains in icu intubated with altered mental status pending tracheostomy and PEG tube placement today, surgery team are following 10/21/2020 Patient remains in the ICU intubated and sedated with pulmonary/critical care team following the case closely and help with vent management. Patient is status post tracheostomy and PEG placement yesterday. She is planned to undergo tube feeding today. She remains on PEEP of 10 and FiO2 of 50%. She still mentally unresponsive. Patient currently is on dexamethasone, multiple vitamins, Eliquis and amiodarone orally. Pulmonary team are planning to discharge her to LTAC review of systems: n/a Active Medications Generic Name Dose Route Start Last Admin Trade Name Freq PRN Reason Stop Dose Admin Acetaminophen 650 mg 10/02/20 16:21 10/18/20 13:03 Acetaminophen Tab 325 Mg Tab PO 650 mg Q6HR PRN Administration Mild Pain or Fever > 100.5 Albuterol Sulfate 2 puff 10/03/20 23:18 10/21/20 20:08 Albuterol Hfa Inhaler INHALATION 2 puff RT-Q4H EILEEN Administration Albuterol Sulfate 2 puff 10/03/20 23:19 Albuterol Hfa Inhaler INHALATION RT-QID PRN Shortness Of Breath Or Wheezing Amiodarone HCl 400 mg 10/21/20 09:00 10/21/20 20:41 Amiodarone 200 Mg Tab PO 400 mg BID EILEEN Administration Apixaban 5 mg 10/21/20 21:00 10/21/20 20:41 Apixaban 5 Mg Tab PO 5 mg BID EILEEN Administration Ascorbic Acid 1,000 mg 10/03/20 09:00 10/21/20 08:02 Ascorbic Acid 500 Mg Tab PO 1,000 mg DAILY EILEEN Administration Chlorhexidine Gluconate 15 ml 10/08/20 09:00 10/21/20 20:41 Chlorhexidine Gluconate 15 Ml Cup MUCOUS MEM 15 ml BID EILEEN Administration Cholecalciferol 100 mcg 10/03/20 09:00 10/21/20 08:02 Cholecalciferol 25 Mcg (1000 Iu) Tablet PO 100 mcg DAILY EILEEN Administration Dexamethasone 6 mg 10/15/20 09:00 10/21/20 08:02 Dexamethasone 2 Mg Tab PO 6 mg DAILY EILEEN Administration Diltiazem HCl 60 mg 10/21/20 09:00 10/21/20 21:01 Diltiazem Oral 60 Mg Tab PO 60 mg QID EILEEN Administration Famotidine 20 mg 10/07/20 10:15 10/21/20 20:41 Famotidine 20 Mg/2 Ml Vial IV 20 mg BID EILEEN Administration Dextrose/Water 1,000 mls @ 75 mls/hr 10/21/20 10:15 10/21/20 11:56 Dextrose 5%-Water Iv Soln IV 75 mls/hr .[id number] EILEEN Administration Metoprolol Tartrate 100 mg 10/13/20 09:00 10/21/20 21:01 Metoprolol Tartrate 50 Mg Tab PO 100 mg TID EILEEN Administration Vancomycin HCl 250 mg 10/17/20 00:00 10/21/20 18:01 Vancomycin Oral Solution 250 Mg/5 Ml Bottle PO 250 mg Q6HR EILEEN Administration Zinc Sulfate 220 mg 10/03/20 09:00 10/21/20 08:02 Zinc Sulfate 220 Mg Cap PO 220 mg DAILY EILEEN Administration Objective - Vital Signs Vital signs: Vital Signs Temp 98.8 F 10/21/20 12:00 Pulse 76 10/21/20 12:00 Resp 28 H 10/21/20 12:00 BP 100/64 10/21/20 12:00 Pulse Ox 96 10/21/20 12:00 Intake & Output 10/20/20 10/21/20 10/21/20 18:59 06:59 18:59 Intake Total 1218.671 514.667 335 Output Total 1190 950 480 Balance 28.671 -435.333 -145 Weight 127.1 kg Intake: IV 580 256 35 0.9 Normal Saline @ KVO 220 20 0.9 Normal Saline 30 36 15 Pressure Bags Intake, IV Titration 573.671 258.667 230 Amount Amiodarone 450 mg In 231.671 Dextrose 5% in Water 250 ml @ 0.5 MG/MIN 16.667 mls/hr IV .Q15H EILEEN Rx#: [id number] Dextrose 5% in Water 1, 150 000 ml @ 75 mls/hr IV . [id number] EILEEN Rx#:[id number] Diltiazem 125 mg In 122 238.667 Sodium Chloride 0.9% 100 ml @ 20 MG/HR 20 mls/hr IV .Q6H15M EILEEN Rx#: [id number] Sodium Chloride 0.9% 500 220 20 80 ml 500 ml @ 20 mls/hr IV .Q24H EILEEN Rx#:[id number] Tube Feeding 0 Other 65 70 Output: Urine 1185 950 480 Estimated Blood Loss 5 Other: Voiding Method Indwelling Catheter Indwelling Catheter Indwelling Catheter ABP, PAP, CO, CI - Last Documented Arterial Blood Pressure 108/57 - Exam -GENERAL: The patient is altered mental status, AAOx0. obese. . Status post tracheostomy HEENT: Pupils are round and equally reacting to light. EOMI. No scleral icterus. No conjunctival pallor. Normocephalic, atraumatic. No pharyngeal erythema. No thyromegaly. CARDIOVASCULAR: S1 and S2 present. No murmurs, rubs, or gallops. PULMONARY: Chest is clear to auscultation, no wheezing or crackles -ABDOMEN: Soft, nontender, nondistended, normoactive bowel sounds. No palpable organomegaly. PEG tube is in place MUSCULOSKELETAL: No joint swelling or deformity. EXTREMITIES: No cyanosis, clubbing, or pedal edema. NEUROLOGICAL: Gross neurological examination did not reveal any focal deficits. SKIN: No rashes. no petechiae. - Labs CBC & Chem 7: 10/21/20 03:50 10/21/20 03:50 Labs: Abnormal Lab Results - Last 24 Hours (Table) 10/21/20 10/21/20 10/21/20 Range/Units 03:50 03:50 03:50 WBC 20.0 H (3.8-10.6) k/uL RBC 3.49 L (3.80-5.40) m/uL Hgb 10.4 L (11.4-16.0) gm/dL Hct 30.9 L (34.0-46.0) % RDW 17.1 H (11.5-15.5) % Neutrophils # 18.7 H (1.3-7.7) k/uL Lymphocytes # 0.5 L (1.0-4.8) k/uL D-Dimer 4.03 H (<0.60) mg/L FEU ABG pO2 (83-108) mmHg ABG HCO3 (21-25) mmol/L ABG Total CO2 (19-24) mmol/L ABG O2 Saturation (94-97) % Sodium 149 H (137-145) mmol/L Chloride 118 H (98-107) mmol/L BUN 78 H (7-17) mg/dL Glucose 142 H (74-99) mg/dL Calcium 7.6 L (8.4-10.2) mg/dL Lactate Dehydrogenase 1968 H (313-618) U/L C-Reactive Protein 2.8 H (<1.0) mg/dL 10/21/20 Range/Units 05:24 WBC (3.8-10.6) k/uL RBC (3.80-5.40) m/uL Hgb (11.4-16.0) gm/dL Hct (34.0-46.0) % RDW (11.5-15.5) % Neutrophils # (1.3-7.7) k/uL Lymphocytes # (1.0-4.8) k/uL D-Dimer (<0.60) mg/L FEU ABG pO2 113 H (83-108) mmHg ABG HCO3 27 H (21-25) mmol/L ABG Total CO2 28 H (19-24) mmol/L ABG O2 Saturation 98.4 H (94-97) % Sodium (137-145) mmol/L Chloride (98-107) mmol/L BUN (7-17) mg/dL Glucose (74-99) mg/dL Calcium (8.4-10.2) mg/dL Lactate Dehydrogenase (313-618) U/L C-Reactive Protein (<1.0) mg/dL Assessment and Plan Assessment: -COVID 19 pneumonia with acute hypoxic respiratory failure, going for tracheostomy and PEG tube placement -Paroxysmal atrial fibrillation, with RVR -AMS secondary to covid infection and metabolic encephalopathy -Hypernatremia -Transaminitis likely secondary to covid and hypotension -Gallstones, asymptomatic -Morbid obesity with BMI 41 -Acute UTI with cystitis from E. coli -Legal guardian: Krista patient's sister -Acute C. diff colitis Plan: This is a pleasant 67 years old female who presents with Covid pneumonia and hypoxia. Continue with Decadron, Zinc, vitamin C, vitamin D, and eliquis. oral vancomycin. Discontinue Lasix and start D5 W. Monitor sodium Continue with tube feedings, vent management with tracheostomy in place Neurology and Pulmonary/critical care team on the case and follow-up with a recommendation. DVT and GI prophylaxis Patient is medically ready to discharge to LTAC once her metabolic abnormalities corrected
[2020-10-22] MEDS: ALBUTEROL HFA INHALER INHALATION SCH ×6 (03:40→23:35)
[2020-10-22 04:34] LABS: ABG Base Excess 1.6 mmol/L; ABG HCO3 26 mmol/L (21-25); ABG Oxygen Saturation 97.4 % (94-97); ABG PCO2 39 mmHg (35-45); ABG PH 7.43 (7.35-7.45); ABG PO2 92 mmHg (83-108); ABG TCO2 27 mmol/L (19-24); Allen Test Performed? Yes
[2020-10-22 04:58] LABS: Anisocytosis Slight; HCT 31.6 % (34.0-46.0); HGB 10.2 gm/dL (11.4-16.0); Hypochromasia Slight; MCH 29.6 pg (25.0-35.0); MCHC 32.4 g/dL (31.0-37.0); MCV 91.3 fL (80.0-100.0); Mean Platelet Volume 8.2; Platelet Count 294 k/uL (150-450); RBC 3.46 m/uL (3.80-5.40); RDW 17.4 % (11.5-15.5); WBC 17.7 k/uL (3.8-10.6)
[2020-10-22 05:06] LABS: Calcium 7.9 mg/dL (8.4-10.2); Potassium 4.4 mmol/L (3.5-5.1)
[2020-10-22] MEDS: VANCOMYCIN ORAL SOLUTION 250 MG/5 ML BOTTLE PO SCH ×4 (06:05→23:45)
[2020-10-22] MEDS: INSULIN ASPART (NovoLOG) 100 UNIT/ML VIAL SQ SCH ×4 (06:45→23:45)
[2020-10-22 06:55] LABS: Glucose,Whole Blood 164 mg/dL (75-99)
--- NOTE | 2020-10-22 08:10 | XR ---
EXAMINATION TYPE: XR chest 1V portable DATE OF EXAM: 10/22/2020 COMPARISON: Chest x-ray 10/21/2020 HISTORY: Abnormal chest x-ray, Covid pneumonia TECHNIQUE: Single frontal view of the chest is obtained. FINDINGS: Bilateral airspace disease shows a similar appearance. Tracheostomy tube and central venou s catheter show a similar appearance. There is no evident pneumothorax or pleural effusion. Patient i s rotated. Cardiac mediastinal silhouette is stable. There are overlying artifacts. IMPRESSION: Findings consistent with pneumonia, differential includes edema, ARDS
--- NOTE | 2020-10-22 08:12 | P.PN ---
Subjective This is a 60-year-old female with significant past medical history for former nicotine dependce, who presents with history failure related to COVID-19 infection pneumonia. She was diagnosed with COVID 09/23/2020. She does not follow with a inclusion internship. We are following secondary to atrial fibrillation and atrial flutter with episodes of RVR. She was found to be in SVT and received 2 doses of adenosine, repeat EKG revealed A fib with RVR. She has been initiated on Cardizem drip, Amiodarone drip, heparin drip. She converted to sinus mechanism, Cardizem was discontinued and patient started on PO metoprolol. She started to have episodes of tachycardia consistent with atrial flutter and atrial fibrillation with RVR. She was re-initiated on Cardizem drip, Amiodarone drip, heparin drip. She was having episodes of rapid ventricular response when she is febrile. She was weaned off sedation 10/17/20. C. diff positive. Echocardiogram 10/03/20: EF 55-60%, trace MR, trace TR. 10/20/20: Patient remains intubated. She continues to be in atrial flutter, rate is controlled. Laboratory data reviewed, WBC 22.8, hemoglobin 11.2, platelets 281, sodium 146, potassium 4.0, creatinine 1.01 (1.16 yesterday). Currently maintained on amiodarone 0.5mg/min, Cardizem 20 mg per hour and metoprolol 100 mg three times a day. 24 hour urine output 2595 mL's. 10/21 Patient seen and examined. Patient went for trach and PEG yesterday. No issues per nursing. One of Metoprolol doses were not given yesterday. HR's controlled on oral Metoprolol and Cardizem drip at 20. 10/22 Patient transitioned to oral Cardizem and and oral amiodarone. HR's have been stable at 80-90's. Per nursing Metoprolol has been held a few times over the last 2 days due to borderline BP's however most of BP's with systolics in the 100's and MAP>65. GENERAL: No acute distress, maintained on mechanical ventilation AC FiO2 50%, PEEP 10. Patient has ET and OG tube Telemetry tracings indicate atrial flutter HR currently in the 80s. Vitals reviewed ASSESSMENT Paroxysmal atrial fibrillation/typical atrial flutter COVID 19 Acute hypoxic respiratory failure Acute Kidney Injury- improving PLAN Tani restarted Continue amiodarone oral load 400mg bid for , and cardizem drip to oral Continue lopressor oral HR's appear fairly stable on current regimen. Discussed with nursing only to hold Metoprolol if SBP<100. No further recommendations from a cardiology sta ndpoint. Objective - Vital Signs Vital signs: Vital Signs Temp 98.6 F 10/22/20 04:00 Pulse 94 10/22/20 07:00 Resp 29 H 10/22/20 07:00 BP 111/71 10/22/20 07:00 Pulse Ox 97 10/22/20 07:00 Intake & Output 10/21/20 10/22/20 10/22/20 18:59 06:59 18:59 Intake Total 1195 1856 75 Output Total 1125 900 90 Balance 70 956 -15 Weight 128.5 kg Intake: IV 35 825 75 0.9 Normal Saline @ KVO 20 0.9 Normal Saline 15 Pressure Bags Dextrose 5% in Water 1, 825 75 000 ml @ 75 mls/hr IV . [id number] EILEEN Rx#:[id number] Intake, IV Titration 680 75 Amount Dextrose 5% in Water 1, 600 75 000 ml @ 75 mls/hr IV . [id number] EILEEN Rx#:[id number] Sodium Chloride 0.9% 500 80 ml 500 ml @ 20 mls/hr IV .Q24H EILEEN Rx#:[id number] Tube Feeding 160 526 Other 320 430 Output: Urine 1125 900 90 Other: Voiding Method Indwelling Catheter Indwelling Catheter ABP, PAP, CO, CI - Last Documented Arterial Blood Pressure 108/57 - Labs CBC & Chem 7: 10/22/20 04:13 10/22/20 04:13 Labs: Abnormal Lab Results - Last 24 Hours (Table) 10/22/20 10/22/20 10/22/20 Range/Units 04:13 04:13 04:13 WBC 17.7 H (3.8-10.6) k/uL RBC 3.46 L (3.80-5.40) m/uL Hgb 10.2 L (11.4-16.0) gm/dL Hct 31.6 L (34.0-46.0) % RDW 17.4 H (11.5-15.5) % D-Dimer 4.22 H (<0.60) mg/L FEU ABG HCO3 (21-25) mmol/L ABG Total CO2 (19-24) mmol/L ABG O2 Saturation (94-97) % Chloride 115 H (98-107) mmol/L BUN 69 H (7-17) mg/dL Glucose 178 H (74-99) mg/dL POC Glucose (mg/dL) (75-99) mg/dL Calcium 7.9 L (8.4-10.2) mg/dL 10/22/20 10/22/20 Range/Units 04:32 06:43 WBC (3.8-10.6) k/uL RBC (3.80-5.40) m/uL Hgb (11.4-16.0) gm/dL Hct (34.0-46.0) % RDW (11.5-15.5) % D-Dimer (<0.60) mg/L FEU ABG HCO3 26 H (21-25) mmol/L ABG Total CO2 27 H (19-24) mmol/L ABG O2 Saturation 97.4 H (94-97) % Chloride (98-107) mmol/L BUN (7-17) mg/dL Glucose (74-99) mg/dL POC Glucose (mg/dL) 164 H (75-99) mg/dL Calcium (8.4-10.2) mg/dL
[2020-10-22] MEDS: dexAMETHasone 2 MG TAB PO SCH (08:50)
[2020-10-22] MEDS: ZINC SULFATE 220 MG CAP PO SCH (08:50)
[2020-10-22] MEDS: DILTIAZEM ORAL 60 MG TAB PO SCH ×4 (08:51→20:42)
[2020-10-22] MEDS: AMIODARONE 200 MG TAB PO SCH ×2 (08:51→20:42)
[2020-10-22] MEDS: CHOLECALCIFEROL 25 MCG (1000 IU) TABLET PO SCH (08:51)
[2020-10-22] MEDS: METOPROLOL TARTRATE 50 MG TAB PO SCH ×3 (08:51→20:42)
[2020-10-22] MEDS: ASCORBIC ACID 500 MG TAB PO SCH (08:51)
[2020-10-22] MEDS: CHLORHEXIDINE GLUCONATE 15 ML CUP MUCOUS MEM SCH ×2 (08:51→20:42)
[2020-10-22] MEDS: FAMOTIDINE 20 MG/2 ML VIAL IV SCH ×2 (08:52→20:42)
[2020-10-22] MEDS ORDERED: LIDOCAINE 1% INJ 10MG/ML (20 ML MDV) SQ ONE (09:58)
[2020-10-22] MEDS: APIXABAN 5 MG TAB PO SCH ×2 (11:23→20:42)
[2020-10-22 11:44] LABS: Glucose,Whole Blood 160 mg/dL (75-99)
--- NOTE | 2020-10-22 12:14 | P.PN ---
Subjective Progress Note Date: 10/22/20 Principal diagnosis: Acute hypoxic respiratory failure secondary to acute COVID 19 pneumonitis This is a 60-year-old female with no previous significant medical history, on 09/23/20, she was diagnosed with acute covid 19 infection. Patient took [id number] medications. And yesterday she presented to the ER and she was found in atrial fibrillation with RVR. And her chest x-ray showed diffuse interstitial pneumonitis. Patient was found to have elevated inflammatory mar kers with LDH of 2894, and C-reactive protein of 8.2. Considering the patient had over 1 week of symptoms, she was felt to be outside the window for REM. Her atrial fibrillation and RVR was treated with Cardizem and later metoprolol orally. She was also placed on heparin. Chest x-ray was quite concerning. Patient required placement on a nonrebreather mask. Later placed on high flow airvo with a non-rebreather mask, and her O2 saturations remained marginal around 88-93%. I saw this patient this morning, and I recommended immediate transfer to the ICU. Chest x-ray was reviewed and it is consistent with acute Covid 19 pneumonitis. Her d-dimer was 0.98.CBC was relatively normal. LDH is up to 3596. And C-reactive protein is up to 76.8 after evaluating the patient, I recommended convalescent plasma. I also recommended actemra. Patient was reevaluated today on 10/04/2020, patient remains in the ICU, she is presently on BiPAP with IPAP of 14 EPAP of 6, and FiO2 is 100%. We ordered actemra and convalescent plasma on this patient. And I believe she received both. Patient was out of the window for REM. Remains on the Covid 19 cocktail. CBC is relatively normal d-dimer 0.73 lites are normal her inflammatory markers are high with LDH of 09/05/2005 and C-reactive protein of 75. Clinically the patient is about the same, not much change from yesterday, she has intermittent cough, and shortness of breath with any activity. Her pulmonary status is marginal at best. On 10/05/2020 and patient seen in follow-up in the intensive care unit. She remains on BiPAP support with pressures of 14/60 FiO2 of 100% with a pulse ox between 90-97%, afebrile, a bit hypertensive, with systolic between 160-180 and diastolic in 90-100. Patient is status post Tocilizumab 800 mg IV piggyback infusion on 10/03/2020 and she has received 1 unit of convalescent plasma on 10/03/2020. Continues on Decadron 6 mg daily, Lovenox 40 mg daily, Pepcid, IV fluids 0.9 normal saline infusing at 25 ML per hour. Today's labs have been reviewed, d-dimer 3.6, B1 is 32, creatinine 0.81, CO2 is 33, the rest of the electrolytes were unremarkable, ferritin level is 1414, AST is 79, which has improved, and ALT is 41 which is relatively stable, up slightly from 39, but overall improving, LDH remains significantly elevated at 3977, CRP is 45.6. Chest x-ray shows diffuse bilateral infiltrates. On 10/07/1999 patient seen in follow-up in the intensive care unit. She remains on BiPAP support on which she is most of the time, with pressures of 14/6, 100% FiO2. Pulse ox is 95%, low-grade fevers with a temp of 99.4 axillary this morning, hemodynamically patient remains stable, not on any drips, 0.9 normal saline at 20 ML per hour, today's d-dimer is up to 22.82, and the patient was started on therapeutic doses of Lovenox 120 mg twice daily, however we will switch the patient to 0.5 mg/kg dosing twice daily. Today's inflammatory markers are continue to trend up, LDH is up to 4670, and a CK is 607, and CRP is down some to 25.1. Abdominal ultrasound was completed in view of elevated liver enzymes and it was a severely limited exam suggesting mostly a collapsed gallbladder containing multiple gallstones, bile duct measures were within normal limits. Today's chest x-ray showed diffuse pleural parenchymal changes correlating with diffuse pneumonia. Hemodynamically patient has been stable, maintaining normal sinus rhythm, echocardiogram showed normal LV function without significant valvular abnormalities, cardiology is following and has been adjusting beta blockers for better heart rate and blood pressure control. On today's evaluation of 10/12/2020 seeing this patient for a follow-up. Is a 60-year-old male patient with COVID 19 pneumonia. Pneumonia and secondary hypoxic respiratory failure. The patient was intubated and placed on a mechanical ventilator. The patient was admitted to the ICU on 10/03/2020 and the patient was extubated on 10/07/2020. Initially the patient was on high flow oxygen which she failed and subsequently his condition progressed and the patient has to be intubated and placed on a mechanical ventilator. The patient has already received 2 units of convalescent plasma, the patient has received Tocilizumab and the patient is currently on steroids. On today's evaluation, the patient is sedated with propofol at 45 mcg/kg per minute and the patient is calm and comfortable successful mechanical ventilator. Propofol is running at 45 mics respiratory per minute. The patient was paralyzed earlier with Nimbex and this was discontinued and he had to be placed back and the patient is currently back on nimbex 1 mcg/kg per minute.. The patient is also intubated on a mechanical ventilator within assist-control at the rate of 30, FiO2 of 60%, PEEP 16 with a tidal volume of 400. Blood gases were noted. The ABG from this morning showed a pH of 7.32 with a pCO2 of 62 and pO2 of 122. The chest x-ray from today is unchanged and the patient has bilateral pulmonary infiltrates more so on the right lower lobe. ET tube is in a good location. As for the blood work, the patient has a white cell count of 23 with a hemoglobin of 12 and a d-dimer of 8.66, BUN is a 50 with a creatinine of 0.9, LDH level is 4302 and a CRP level is at 9.4. The patient is hemodynamically stable on no pressors. Patient was being performed earlier and currently is in a supine body position. The chest x-ray from today showing diffuse breath and pulmonary infiltrates and ET tube is in a good location. The patient is on a enteral feeding with vital high protein at the rate of 40 mL an hour. The neck fluid balance over the past 24 hours is -226 mL and there are no signs of any significant fluid overload. Producing adequate amount of urine output. The cardiac rhythm is A. fib/flutter and the patient is currently on Eliquis. The peak airway pressure is 34 anesthetic pressures around 33. On 10/13/2020 on seeing the patient for a follow-up. The patient remains in intensive care unit. This is a 60-year-old female patient with Covid interrelated pneumonia with hypoxic respiratory failure. The patient has been on a mechanical ventilator since 10/07/2020. The patient currently is on propofol which is running at 60 mcg/kg per minute and the patient is also on paralytics which is running in the form of Nimbex at 1 mcg/kg per minute. Attempts to wean off the Nimbex failed and the patient had to be paralyzed again. Meanwhile, the patient remains on a mechanical ventilator, assist control rate of 30 with an FiO2 of 40% and a PEEP of 16 and a tidal volume of 400. The blood gases from today shows a pH of 7.33 with a pCO2 of 61 and pO2 of 71. The peak airway pressures are 33 and a plateau airway pressure is 31. The chest x-ray from today show an stable bilateral pulmonary infiltrates, with right midlung and left lower lobe pulmonary infiltration and the chest x-ray findings are essentially stable since yesterday without any significant interval change. Her potassium level was at 5.7 and his morning and based on that the patient was given a dose of Kayexalate 30 Repeat potassium is pending for now. Meanwhile, the patient remains hemodynamically stable. The patient is on levo fed, at 0.06 mcg/kg per minute. This should be gradually weaned off today. The patient is on enteral feeding for nutritional support and the patient is on vital high protein at 40 mL an hour. The patient remains in episodes of atrial fibrillation/flutter and this morning is she is on Cardizem at 10 mg an hour and the patient was loaded again with amiodarone and maintained on a infusion of amiodarone at 0.5 she'll be switched back to oral amiodarone today. She remains on Eliquis 5 mg by mouth twice a day. Empiric antibiotic coverage with IV cefepime. She remains on Decadron 6 mg IV every 24 hours. IV fluids with normal saline at the rate of 25 mL an hour. The fluid balance over the past 24 hours has been -49 mL. 10/14/2020, I'm seeing the patient for a follow-up. The patient was intubated and she has been on a mechanical ventilator since 10/07/2020. I'm seeing her today in follow-up. She remains on propofol at 45 mcg/kg per minute and the patient is currently on Nimbex at 1 mcg/kg per minute. She is well sedated and paralyzed. Paralytic Cardizem being given to her daily basis. She failed yesterday and the same of discharge today. She had a mechanical ventilator assist control mode at the rate of 30 with an FiO2 of 40% and a PEEP of 12 with tidal volume of 400. Blood gases from today shows a pH of 7.3388 with a pCO2 of 57 and pO2 of 57. As for the chest x-ray, I do not see any interval change in the patient has diffuse bilateral pulmonary infiltrates. Peak airway pressure is 31 with a static pressure of 26. IV fluids with normal saline at the rate of 25 mL an hour. She is still having issues with atrial fibrillation. She is currently on a combination of Cardizem drip at the rate of 15 mg an hour and amiodarone at 0.5 mg per minute and metoprolol at a dose of 100 mg by mouth 3 times a day. Earlier this morning, the patient was still tachycardic and the patient was being considered for digoxin. Nevertheless, her heart rate currently is down at 9365 per minute. Earlier this morning it was in the 130s up to 160 range. Otherwise, the patient is on no pressors since yesterday, the patient's electrolytes today show improvement in her potassium down to 4.7 being given Kayexalate. BUN 65 with a creatinine of 1.1. The LDH level is 3378 which is still elevated although lower compared to yesterday and his CRP level is at 7.7. Serum bicarb is 34.. Calcitonin levels of 0.17 and the patient is currently on empiric antibiotic coverage with cefepime. Urine culture was showing gram-negative bacillus and the final culture are still pending for now. We will cefepime gram-negative bacilli fluid: Balance balance is positive of 1 L over the past 24 hours. 2020, the patient is being seen for a follow-up. He remains intubated on a mechanical ventilator. Currently on propofol running at 50 mcg/kg per minute and the patient wishes currently off Nimbex and the patient was taken off the paralytics yesterday. Meanwhile, the patient remains on a mechanical ventilator on assist control mode and she is on assist-control at the rate of 30 with an FiO2 of 50% and a PEEP currently is at 12 with a tidal volume of 400. The peak and static pressures are lower with a levels of 28 and 19 respectively. The blood gases from today shows a pH of 7.41 with a pCO2 of 53 and pO2 of 77 and t he patient's agitation is improved. The chest x-ray from today showing diffuse bilateral pulmonary infiltrates, unchanged with orotracheal tube being in a good location. The patient is being treated with Decadron 6 mg IV every 24 hours. She remains on Eliquis 5 mg by mouth twice a day. She has a d-dimer of 8.7 from today, slightly lower and the rest of the inflammatory markers are still pending for now. Meanwhile, hemodynamically, the patient is stable and she is on no pressors. Her atrial fibrillation/flutter is under much better control. She is currently in a flutter rhythm. Amiodarone is running at 0.5 mg per minute and the patient is also on metoprolol 100 mg by mouth 3 times a day and Cardizem at 15 mg an hour. The plan is to continue these per cardiology. The patient is also on empiric antibiotic coverage with IV cefepime. The pro calcitonin level was 0.17. The patient is afebrile. No respiratory secretions. Cultures of been all negative. I'm inclined to continue the antibiotics as the patient has E. coli in her urine off for 10/12. 10/16/2020, the patient remains on a mechanical ventilator. Unfortunately, she is not doing any much progress. She was taken off the Nimbex and she is still on her lipase for now. She is also on propofol running at 50 mcg/kg per minute. Unfortunately, she was having issues with oxygen desaturation yesterday. I had to make some ventilator changes and currently she is an assist-control mode at a rate of 30 with a FiO2 of 70% and a PEEP of 10 and a tidal volume of 400. The blood gases from this morning showed a pH of 7.4 with a pCO2 of 50 and pO2 of 89. Chest x-ray is unchanged with diffuse bilateral pulmonary infiltrates. She remains on Decadron 6 mg by mouth. She remains also and a A. fib flutter rhythm and after being controlled for a while, the patient went back to become tachycardic again despite being on a combination of metoprolol 100 mg 3 times a day, Cardizem drip and then amiodarone drip. She still has a coagulation with Eliquis. Discussed with cardiology. Not a candidate for cardioversion. IV antibiotics is emphatic and the patient's Prograf level is low at 0.17. She is afebrile. She is on enteral feeding for nutritional support and she is currently on vital high protein at the rate of 40 mL an hour. She has E. coli in the urine. She also had abnormal inflammatory markers with an LDH of 08/11/2001, CRP of 19, and a d-dimer level of 8.4. Around 7:00 this morning, the patient was becoming hypotensive and she was started on low-dose norepinephrine which is running at 5 g per minute. Her net fluid balance is - 2.6 L over the past 24 hours and the patient is receiving Lasix 40 mg IV push every 12 hours. She is also having some diarrhea and she has a fecal management system in place. Stool for C. diff will be checked before the injury. Note that the patient is receiving IV cefepime that was initially emphatic and later on antibiotic was kept on board because of E. coli in the urine. She also has corynebacterium in the sputum, a colonizer. 10/17/2020, the patient is being seen for a follow-up. She is on propofol and she remains off Nimbex. Propofol is running at 50 mcg/kg per minute. She is also on assist control mode of ventilation on a rate of 24, tidal volume of 450, FiO2 of 50% and a PEEP of 10. Peak airway pressure is 31. Static pressure is 2 8. Blood gases showed a pH of 7.43 with a pCO2 of 43 and pO2 of 63. She is breathing comfortably on a mechanical ventilator. The chest x-ray from today is showing some limited infiltration in lung bases left more than right. Orotracheal tube is in a good location. Comparing chest x-rays, she has marked improvement in the infiltration is noted on the right compared to the earlier chest x-ray from yesterday. Left side remains essentially unchanged. She is off paralytics. She remains in atrial fibrillation. Rate has been fluctuating. After being tachycardic for it some time, she improved and currently she is back having some ongoing tachycardia. Her heart rate Cardizem 150. The patient remains on amiodarone drip at 0.5 mg per minute that she is also on Cardizem drip at 15 mg an hour. The patient is also on Eliquis for long-term and coagulation regarding the ongoing atrial fibrillation. She remains on metoprolol 100 mg by mouth 3 times a day for rate control. Note that the p atient had become also hypotensive and the patient was started on norepinephrine infusion at the low-dose of 0.02 mics per kilogram per minute is being gradually weaned off. She is receiving enteral feeding for nutritional support with vital high protein at the rate of 40 mL an hour. For that overall fluid balance over the past 24 hours has been -2.1 L. The patient remains on Lasix 40 mg of push every 12 hours. She was having liquidy stool/bowel movements and the patient was further testing and she checked positive for C. diff and the patient was started on oral vancomycin. Note that her antibiotic coverage was with IV cefepime and this was essentially an empiric antibiotic coverage. Was found to have gram-negative UTI with Ecoli and the plan was to continue the antibiotics for a total of 5 days. The pro calcitonin level from 10/14/2020 WAS 0.17. FOR THE CORYNEBACTERIUM, IN THE SPUTUM, THIS IS LIKELY A COLONIZER. 10/18/2020, the patient has been off sedation since yesterday at 2 PM. Neurologically, she is still not awake. She may have some reflexes with deep painful stimulation such as grimacing. She is not withdrawing. Note that the patient has taken significant amount of sedation during her hospitalization and this may be a residual drug effect. She is on mechanical ventilator. On today's evaluation, she is on assist-control at the rate of 44 with a tidal vo lume of 450 and FiO2 of 50% with a PEEP of 10. Peak and static pressures are 26 and 24 respectively. Blood gases showed a pH of 7.37 with a pCO2 of 47 and pO2 of 80. Chest x-ray from today showing bilateral multifocal areas of reticular another opacities and infiltrates consistent with COVID-19 related pneumonia/ARDS. The patient is not having any significant orotracheal secretions. I had a lengthy discussion with the family and I discussed the case with her sister and the daughter and the [id number] and we have made decisions to proceed with a PEG and trach and the surgeon was going through the procedure will be up to the discretion of the family. The patient meanwhile is an atrial fibrillation. The rate is controlled at the rate of 116 and the patient is currently on anticoagulation withEliquis 5 mg by mouth twice a day. In terms of rate control she is still on Cardizem drip at 20 mg an hour and she is also on amiodarone at 0.5 mg per minute. She is also on Lopressor 100 mg by mouth 3 times a day. Cardiology rounded on the patient and he wanted to keep the same medications for now. The patient is also being diuresis with IV Lasix patient is receiving 40 mg IV every 12 hours. Once that is improving and the patient continues to be a negative fluid balance.Fluid balance was -5 94 mL over the past 24 hours. Meanwhile, the BUN is at 72 and the creatinine is at 1.1. Her inflammatory markers regarding COVID-19 showed a LDH level of 2440 on the d- dimer currently is at 4.96. CRP is at 4.5. She is receiving enteral feeding for nutritional support in the form of vital high protein at the rate of 32 mL an hour. She was having liquidy stool and this turned out to be consistent with C. diff colitis. She is currently on oral vancomycin. The diarrhea has slowed down since yesterday. No fever. The white cell count is currently elevated at 31. She is on IV cefepime regarding E. coli in her urine. She remains on a low dose of norepinephrine infusion at 0.02 micrograms per kilogram per minute. On 10/19/2020 patient seen in follow-up in the intensive care unit, patient has been off sedation for the last 2 days, and she remains unresponsive, and patient does not move extremities, at times she does withdraw to deep painful stimuli, has not open eyes to voice. She remains on mechanical ventilator support with assist control mode of ventilation, with a rate of 24, tidal volume is 450, FiO2 of 50%, and PEEP of 10. She is intubated with a #8 endotracheal tube, 2 6 at the lip, peak airway pressures 27, her static pressure is 22. Currently she is on amiodarone at 0.5 mg per minute, and she remains in atrial fibrillation with a heart rate which is better controlled at 83-98 BPM, blood pressure stable at 105/64, and patient is not requiring any vasopressor support. 0.9 normal saline is at a rate of 20 ML per hour, Cardizem drip is currently running at 20 mg per hour, patient was started on Eliquis for anticoagulation which is currently on hold for tracheostomy and PEG tube placement. Apparently the family got back to nursing staff and they are requesting Dr. Villa for surgical consultation for trach PEG tube placement, and they did consent to trach and PEG placement. Today's chest x-ray shows findings consistent with patient's history of COVID 19 pneumonia bilateral airspace disease no evident pneumothorax or pleural effusion. In terms of therapy patient remains on Decadron 6 mg daily, and patient is on 1 dose of Lasix, patient is in -723 mL net fluid balance over the last 24 hours, she is receiving nutritional support, she is tolerating it well, she was found to have C. diff colitis, she is still having liquidy diarrhea, and she is on oral vancomycin. Today's labs show improvement in the white blood cell count down to 27 on the hemoglobin is 11.2, d-dimer is 3.6, blood gases as mentioned above, sodium is 143, potassium is 4.0, chloride is 112, BUN of 84, creatinine is 1.16, ferritin level is 1664, LDH is trending down, 2199, and CRP is 3.6 On 10/20/2020 patient seen in follow-up in the intensive care unit, she remains intubated and sedated on mechanical ventilator, she has been off sedation since 10/17/2020 and her level of consciousness is still quite sedated, and patient has not open eyes to voice, and has not withdrawing from pain followed any meaningful commands, Tristan settings are assist control mode of ventilation with a rate of 24, tidal volumes 450, FiO2 of 50% and PEEP of 10, despite his bl ood gases show pO2 of 90, pCO2 35 and pH of 7.51, crit drips include amiodarone as 0.5 mg per hour, Nimbex has been off Coumadin to prevent has been off since 10/17/2020. No other drips at this time except for maintenance IV fluids at point and a saline at a rate of 20 ML per hour. Patient remains in A. fib/atrial flutter with a rate of 81 BPM. Her Eliquis has been placed on hold as the patient is scheduled for tracheostomy and PEG tube placement today with Dr. Mcmahon. Requiring any vasopressor support, she is receiving oral vancomycin for C. diff colitis, she continues on Decadron 6 mg daily, she is also on Cardizem at 20 mg per hour, she is on daily dose of IV Lasix 40 mg daily, and sh e is in negative fluid balance of 123 mL. Her chest x-ray today shows no evident interval change with bilateral airspace disease related to COVID 19 pneumonia. Today's labs have been reviewed, white blood cell count is down to 22.8, improving, hemoglobin 11.2, d-dimer is improving and is down to 2.93, blood gases as mentioned above, sodium is 146, potassium is 4.0, renal profile shows BUN of 83 and creatinine of 1.01, LDH is improving and is down to 1974, and CRP is 3. Woods catheter is in place and patient is producing urine output in the order of 100-175 ML per hour, fecal management system is in place, patient is still having liquidy diarrhea. On 10/21/2020 patient seen in follow-up in the intensive care unit, she is trached to the ventilator, she received her tracheostomy and PEG tube insertion yesterday on 10/20/2020, currently on assist control mode of ventilation with a rate of 24, tidal volumes 450, FiO2 is 50% and 10 of PEEP, this was blood gas shows pO2 113, pCO2 38, and pH of 7.45, she isn't on any sedation, she still quite lethargic and has not open eyes to voice, and has not followed any commands, she is 1.9 normal saline at 20 ML per hour, no other drips, she rem ains in atrial fibrillation atrial flutter with a controlled rate currently at 78 BPM, her Eliquis had been on hold for last 2 days for tracheostomy and PEG tube insertion, we will restarted tonight, she remains on Decadron 6 mg daily, she is on oral Cardizem 60 mg 4 times a day, and amiodarone 400 mg twice a day, she also remains on oral vancomycin for C. diff colitis. Today's chest x-ray has been reviewed showing no evident pneumothorax or pleural effusion, still has bilateral airspace disease related to COVID-19 pneumonia. Today's labs have been reviewed showing white blood cell count of 20, hemoglobin of 10.4, d-dimer is 4.04, sodium has increased and is currently at 149, potassium is 4.2, chloride is 118, CO2 is 29, BUN of 70, creatinine is 1.03, her LDH is relatively stable at 1968, CRP is 2.8. Tracheostomy and PEG tube insertion sites are clean dry and intact and we anticipate reinitiation of her tube feedings this afternoon. On 10/22/2020 patient is seen in follow-up in intensive care unit, she is status post tracheostomy and PEG tube placement on 10/20/2020, she remains trached to the ventilator, on assist control mode of ventilation with a rate of 24, tidal volume was 450, FiO2 50% PEEP of 8, this morning's blood gas shows pO2 of 92, pCO2 39, and pH is 7.43, patient is receiving D5W at a rate of 75 ML per hour, she is tolerating tube feedings of vital high protein at 52 ML per hour, and she is receiving free water flushes at 200 mL of water every 4 hours, hemody namically stable, not on any vasopressor support, no fever or chills, today's chest x-ray has been reviewed showing findings consistent with pneumonia, bilateral airspace disease, with no change from previous chest x-ray. Process of her blood work has been reviewed showing white blood cell count of 17.7, hemoglobin of 10.2, d-dimer today is 4.22, and patient has been restarted on Eliquis, sodium is 145, potassium 4.4, chloride is 1:15, CO2 is 26, B1 is 69, creatinine 0.9. Patient has had her sedation off, however she has not followed any commands, and remains quite sedated, she remains in atrial fibrillation with a controlled rate, her IV amiodarone has been transitioned to oral amiodarone 400 mg daily, her Eliquis doses 5 mg twice daily, and she is also on oral Cardizem 60 mg 4 times a day, and cardiology is following, she continues on oral vancomycin for evidence of C. diff colitis. Urine output is in order of 75-100 ML per hour, septal acute events overnight. Objective - Vital Signs Vital signs: Vital Signs Temp 98.2 F 10/22/20 08:00 Pulse 84 10/22/20 11:00 Resp 24 10/22/20 11:00 BP 104/72 04/22/21 11:00 Pulse Ox 98 10/22/20 11:00 Intake & Output 10/21/20 10/22/20 10/22/20 18:59 06:59 18:59 Intake Total 1195 1856 783 Output Total 1125 900 415 Balance 70 956 368 Weight 128.5 kg 128.5 kg Intake: IV 35 825 375 0.9 Normal Saline @ KVO 20 0.9 Normal Saline 15 Pressure Bags Dextrose 5% in Water 1, 825 375 000 ml @ 75 mls/hr IV . [id number] [facility] Rx#:[id number] Intake, IV Titration 680 75 Amount Dextrose 5% in Water 1, 600 75 000 ml @ 75 mls/hr IV . [id number] [facility] Rx#:[id number] Sodium Chloride 0.9% 500 80 ml 500 ml @ 20 mls/hr IV .Q24H [facility] Rx#:[id number] Tube Feeding 160 526 208 Other 320 430 200 Output: Urine 1125 900 415 Other: Voiding Method Indwelling Catheter Indwelling Catheter Indwelling Catheter ABP, PAP, CO, CI - Last Documented Arterial Blood Pressure 108/57 - Exam GENERAL EXAM: Unresponsive, comatose, intubated, 60-year-old morbidly obese white female, on assist control mode of ventilation with FiO2 of 50% and PEEP of 8 HEAD: Normocephalic/atraumatic. EYES: Normal reaction of pupils, equal size. Conjunctiva pink, sclera white. NOSE: Clear with pink turbinates. THROAT: No erythema or exudates. NECK: No masses, no JVD, no thyroid enlargement, no adenopathy. Midline tracheostomy, patient is connected to the ventilator, currently on assist control mode of ventilation CHEST: No chest wall deformity. Symmetrical expansion. LUNGS: Equal air entry with diffuse crackles but no wheeze, rhonchi or dullness. CVS: Irregular rate and rhythm, normal S1 and S2, no gallops, no murmurs, no rubs ABDOMEN: Soft, nontender. No hepatosplenomegaly, normal bowel sounds, no guarding or rigidity. PEG tube is in place, insertion site is clean dry and intact EXTREMITIES: No clubbing, no edema, no cyanosis, 2+ pulses and upper and lower extremities. MUSCULOSKELETAL: Muscle strength and tone normal. SPINE: No scoliosis or deformity SKIN: No rashes CENTRAL NERVOUS SYSTEM: Sedated, intubated No focal deficits, tone is normal in all 4 extremities. - Labs CBC & Chem 7: 10/22/20 04:13 10/22/20 04:13 Labs: Abnormal Lab Results - Last 24 Hours (Table) 10/22/20 10/22/20 10/22/20 Range/Units 04:13 04:13 04:13 WBC 17.7 H (3.8-10.6) k/uL RBC 3.46 L (3.80-5.40) m/uL Hgb 10.2 L (11.4-16.0) gm/dL Hct 31.6 L (34.0-46.0) % RDW 17.4 H (11.5-15.5) % D-Dimer 4.22 H (<0.60) mg/L FEU ABG HCO3 (21-25) mmol/L ABG Total CO2 (19-24) mmol/L ABG O2 Saturation (94-97) % Chloride 115 H (98-107) mmol/L BUN 69 H (7-17) mg/dL Glucose 178 H (74-99) mg/dL POC Glucose (mg/dL) (75-99) mg/dL Calcium 7.9 L (8.4-10.2) mg/dL 10/22/20 10/22/20 10/22/20 Range/Units 04:32 06:43 11:43 WBC (3.8-10.6) k/uL RBC (3.80-5.40) m/uL Hgb (11.4-16.0) gm/dL Hct (34.0-46.0) % RDW (11.5-15.5) % D-Dimer (<0.60) mg/L FEU ABG HCO3 26 H (21-25) mmol/L ABG Total CO2 27 H (19-24) mmol/L ABG O2 Saturation 97.4 H (94-97) % Chloride (98-107) mmol/L BUN (7-17) mg/dL Glucose (74-99) mg/dL POC Glucose (mg/dL) 164 H 160 H (75-99) mg/dL Calcium (8.4-10.2) mg/dL Assessment and Plan Plan: assessment: #1. Acute hypoxic respiratory failure secondary to acute COVID 19 related pneumonitis, status post Tocilizumab and 1 unit of convalescent plasma on 10/03/2020, admitted to the ICU on 10/03/2020, and intubated on 10/07/2020. Patient has had prolonged ventilator support and the plan is to proceed with tracheostomy and PEG tube placement, and the family has agreed to that. Patient has remained off sedation for the last 3 days, and her mentation remains quite altered, she is unresponsive to deep painful stimuli. Patient is status post tracheostomy and PEG tube insertion on 10/20/2020 #2. Episodes of A. fib with RVR, present better control, and patient is currently on oral amiodarone, oral Cardizem, and Eliquis #3. Increased d-dimer related to acute COVID-19, improving #4. Acute C. diff colitis, and patient does have evidence of E. coli urinary tract infection and patient has completed a course of cefepime which is currently discontinued #5. Sputum culture positive for Corynebacterium stratum likely a colonizer #6. Leukocytosis likely related to acute C. diff colitis, which is improving and patient is currently on oral vancomycin #7. History of paroxysmal atrial fibrillation #8. Increased transaminases related to acute viral pneumonia. Ultrasound abdomen was completed showing multiple gallbladder stones, however total bilirubin level is normal at 0.5 #9. Acute toxic metabolic encephalopathy, multifactorial #10. Hypernatremia related to free water deficit and diuretic therapy, on free water flushes, and patient continues on D5W at rest 75 ML per hour Plan: Continue with current vent settings Keep sedation off Continue nutritional support Continue vancomycin for C. diff colitis Continue holding Lasix Continue current dose Decadron Continue oral anticoagulation in the form of Eliquis Today's chest x-ray and labs reviewed We'll obtain a PICC line Continue central line Consult EARLY CHILDHOOD TEACHER for LTAC facility, patient is ready for discharge to LTAC facility once arrangements are completed I performed a history & physical examination of the patient and discussed their management with my nurse practitioner, Ena Daly. I reviewed the nurse practitioner's note and agree with the documented findings and plan of care. Lung sounds are positive for diminished breath sounds. The findings and the impression was discussed with the patient. I attest to the documentation by the nurse practitioner. , Time with Patient: Greater than 30
--- NOTE | 2020-10-22 12:23 | P.PN ---
<Mora Monk - Last Filed: 10/22/20 12:20> Subjective Progress Note Date: 10/22/20 CHIEF COMPLAINT: Respiratory failure HISTORY OF PRESENT ILLNESS: Patient remains in the ICU and intubated. She is admitted to the hospital with an acute hypoxic respiratory failure secondary to acute COVID-19 pneumonia and evidence of ARDS. Patient is status post tracheostomy and PEG tube placement. Patient has been started on her to feedings. She's currently at 52 mL per hour. She did have some mild oozing from her tracheostomy site per nursing staff. She's afebrile. WBC 17.7 patient was started on her Eliquis yesterday for A.fib PHYSICAL EXAM: VITAL SIGNS: Reviewed. GENERAL: Well-developed in no acute distress. HEENT: No sclera icterus. Moist buccal mucosa. Head is atraumatic, normocephalic. Tracheostomy site clean dry and intact ABDOMEN: Soft. Nondistended. Nontender. PEG tube site clean dry and intact NEUROLOGIC: Patient is intubated ASSESSMENT: 1. Acute hypoxic respiratory failure secondary to COVID-19 pneumonia with prolonged need for mechanical ventilation. Status post tracheostomy placement 2. Moderate protein calorie malnutrition status post PEG tube placement 3. Paroxysmal atrial fibrillation 4. C. diff colitis 5. Toxic Metabolic encephalopathy PLAN: -Continue ICU management -Continue supportive care -Continue tube feedings per dietitian recommendations Physician Floor Coverer Apprentice note has been reviewed by physician. Signing provider agrees with the documented findings, assessment, and plan of care. Objective - Vital Signs Vital signs: Vital Signs Temp 98.2 F 10/22/20 08:00 Pulse 84 10/22/20 11:00 Resp 24 10/22/20 11:00 BP 104/72 10/22/20 11:00 Pulse Ox 98 10/22/20 11:00 Intake & Output 10/21/20 10/22/20 10/22/20 18:59 06:59 18:59 Intake Total 1195 1856 783 Output Total 1125 900 415 Balance 70 956 368 Weight 128.5 kg 128.5 kg Intake: IV 35 825 375 0.9 Normal Saline @ KVO 20 0.9 Normal Saline 15 Pressure Bags Dextrose 5% in Water 1, 825 375 000 ml @ 75 mls/hr IV . [id number] [facility] Rx#:[id number] Intake, IV Titration 680 75 Amount Dextrose 5% in Water 1, 600 75 000 ml @ 75 mls/hr IV . [id number] [facility] Rx#:[id number] Sodium Chloride 0.9% 500 80 ml 500 ml @ 20 mls/hr IV .Q24H [facility] Rx#:[id number] Tube Feeding 160 526 208 Other 320 430 200 Output: Urine 1125 900 415 Other: Voiding Method Indwelling Catheter Indwelling Catheter Indwelling Catheter ABP, PAP, CO, CI - Last Documented Arterial Blood Pressure 108/57 - Labs CBC & Chem 7: 10/22/20 04:13 10/22/20 04:13 Labs: Abnormal Lab Results - Last 24 Hours (Table) 10/22/20 10/22/20 10/22/20 Range/Units 04:13 04:13 04:13 WBC 17.7 H (3.8-10.6) k/uL RBC 3.46 L (3.80-5.40) m/uL Hgb 10.2 L (11.4-16.0) gm/dL Hct 31.6 L (34.0-46.0) % RDW 17.4 H (11.5-15.5) % D-Dimer 4.22 H (<0.60) mg/L FEU ABG HCO3 (21-25) mmol/L ABG Total CO2 (19-24) mmol/L ABG O2 Saturation (94-97) % Chloride 115 H (98-107) mmol/L BUN 69 H (7-17) mg/dL Glucose 178 H (74-99) mg/dL POC Glucose (mg/dL) (75-99) mg/dL Calcium 7.9 L (8.4-10.2) mg/dL 10/22/20 10/22/20 10/22/20 Range/Units 04:32 06:43 11:43 WBC (3.8-10.6) k/uL RBC (3.80-5.40) m/uL Hgb (11.4-16.0) gm/dL Hct (34.0-46.0) % RDW (11.5-15.5) % D-Dimer (<0.60) mg/L FEU ABG HCO3 26 H (21-25) mmol/L ABG Total CO2 27 H (19-24) mmol/L ABG O2 Saturation 97.4 H (94-97) % Chloride (98-107) mmol/L BUN (7-17) mg/dL Glucose (74-99) mg/dL POC Glucose (mg/dL) 164 H 160 H (75-99) mg/dL Calcium (8.4-10.2) mg/dL <Rebecca Villaony - Last Filed: 10/22/20 16:03> Subjective As above. Patient stable on the ventilator. Plans are underway for possible transfer to a specialty Hospital. Bolster on PEG tube loosened slightly. Stay sutures remain in place. Stable for transfer. Sutures may be left in place as they are absorbable or removed in 2-3 weeks. Objective - Vital Signs Vital signs: Vital Signs Temp 98.2 F 10/22/20 12:00 Pulse 95 10/22/20 15:00 Resp 21 10/22/20 15:00 BP 117/82 10/22/20 15:00 Pulse Ox 96 10/22/20 15:00 Intake & Output 10/21/20 10/22/20 10/22/20 18:59 06:59 18:59 Intake Total 1195 1856 1633 Output Total 1125 900 815 Balance 70 956 818 Weight 128.5 kg 128.5 kg Intake: IV 35 825 675 0.9 Normal Saline @ KVO 20 0.9 Normal Saline 15 Pressure Bags Dextrose 5% in Water 1, 825 675 000 ml @ 75 mls/hr IV . [id number] [facility] Rx#:[id number] Intake, IV Titration 680 75 Amount Dextrose 5% in Water 1, 600 75 000 ml @ 75 mls/hr IV . [id number] [facility] Rx#:[id number] Sodium Chloride 0.9% 500 80 ml 500 ml @ 20 mls/hr IV .Q24H [facility] Rx#:[id number] Oral 100 Tube Feeding 160 526 458 Other 320 430 400 Output: Urine 1125 900 815 Other: Voiding Method Indwelling Catheter Indwelling Catheter Indwelling Catheter ABP, PAP, CO, CI - Last Documented Arterial Blood Pressure 108/57 - Labs CBC & Chem 7: 10/22/20 04:13 10/22/20 04:13 Labs: Abnormal Lab Results - Last 24 Hours (Table) 04/10/22/20 10/22/20 Range/Units 04:13 04:13 04:13 WBC 17.7 H (3.8-10.6) k/uL RBC 3.46 L (3.80-5.40) m/uL Hgb 10.2 L (11.4-16.0) gm/dL Hct 31.6 L (34.0-46.0) % RDW 17.4 H (11.5-15.5) % D-Dimer 4.22 H (<0.60) mg/L FEU ABG HCO3 (21-25) mmol/L ABG Total CO2 (19-24) mmol/L ABG O2 Saturation (94-97) % Chloride 115 H (98-107) mmol/L BUN 69 H (7-17) mg/dL Glucose 178 H (74-99) mg/dL POC Glucose (mg/dL) (75-99) mg/dL Calcium 7.9 L (8.4-10.2) mg/dL 10/22/20 10/22/20 10/22/20 Range/Units 04:32 06:43 11:43 WBC (3.8-10.6) k/uL RBC (3.80-5.40) m/uL Hgb (11.4-16.0) gm/dL Hct (34.0-46.0) % RDW (11.5-15.5) % D-Dimer (<0.60) mg/L FEU ABG HCO3 26 H (21-25) mmol/L ABG Total CO2 27 H (19-24) mmol/L ABG O2 Saturation 97.4 H (94-97) % Chloride (98-107) mmol/L BUN (7-17) mg/dL Glucose (74-99) mg/dL POC Glucose (mg/dL) 164 H 160 H (75-99) mg/dL Calcium (8.4-10.2) mg/dL
--- NOTE | 2020-10-22 12:54 | IR ---
EXAMINATION TYPE: IR cvc insert >=5 years DATE OF EXAM: 10/22/2020 COMPARISON: NONE HISTORY: Needs long-term intravenous access for therapy, infection FINDINGS: Maximal barrier technique was utilized. Hand hygiene obtained with soap and water and alco hol-based hand rub. The skin overlying the right basilic vein was localized with ultrasound and noted to be compressible and patent by ultrasound. An ultrasound image was obtained and submitted on luis ent's chart. Sterile technique utilized with the ultrasound machine. The skin overlying was prepped a nd draped and Lidocaine used for local anesthesia. A skin oleg was made with a scalpel. Access was gained to the vein under direct ultrasound guidance with a 21-gauge needle and a 0.018 inch wire was advanced. Access site was dilated with a peel-away sheath and the catheter tailored to length. Cath eter advanced centrally and a post procedure chest x-ray verified placement in the right atrium, cath eter withdrawn to the level of the cavoatrial junction. Catheter was fixed to the skin and a sterile dressing placed. Hemostasis achieved and the catheter was aspirated and flushed with sterile saline . The patient remained in stable condition. IMPRESSION: STATUS POST ULTRASOUND GUIDED PICC LINE PLACEMENT, READY FOR USE. THIS PROCEDURE WAS PER FORMED BY THE UNDERSIGNED.
--- NOTE | 2020-10-22 13:08 | XR ---
EXAMINATION TYPE: XR chest 1V confirm line [facility] DATE OF EXAM: 10/22/2020 COMPARISON: Chest x-ray same dated earlier time HISTORY: Post PICC line placement TECHNIQUE: Single frontal view of the chest is obtained. FINDINGS: There is been interval right-sided PICC line placement, distal tip in the right atrium. IMPRESSION: No evident complication status post PICC line placement
[2020-10-22] MEDS: DEXTROSE 5% IN WATER 1,000 ML IV SCH (14:57)
--- NOTE | 2020-10-22 16:14 | CT ---
EXAMINATION TYPE: CT brain wo con DATE OF EXAM: 10/22/2020 COMPARISON: None HISTORY: mental status changes. CT DLP: 1260.[address] of the brain was performed. Large right MCA territory infarct of indeterminate age although relatively recent. Additional infarct s involving the left frontal, left occipital, left watershed region as well as the bilateral cerebell um. No midline shift. No intracranial hemorrhage identified. Osseous calvarium is intact. Pansinusitis. If symptoms persist consider MRI. IMPRESSION: 1. Age indeterminate although recent infarcts of the right MCA territory, left frontal, left occipita l and left watershed regions as well as the bilateral cerebellum. No hemorrhagic transformation at th is time.
[2020-10-22 17:35] LABS: Glucose,Whole Blood 174 mg/dL (75-99)
[2020-10-22 17:41] LABS: Albumin 2.8 g/dL (3.5-5.0); Bilirubin, Delta 0.2 mg/dL (0.0-0.2); Bilirubin,Unconjugated 0.3 mg/dL (0.0-1.1); Total Bilirubin 0.5 mg/dL (0.2-1.3); Total Protein 5.6 g/dL (6.3-8.2)
--- NOTE | 2020-10-22 18:24 | P.PN ---
Subjective Progress Note Date: 10/22/20 Patient has been off sedation since 10/17/2020. Patient at present is semi- comatose, not following any commands. Please refer to examination below. Objective - Vital Signs Vital signs: Vital Signs Temp 98.2 F 10/22/20 12:00 Pulse 95 10/22/20 15:00 Resp 21 10/22/20 15:00 BP 117/82 10/22/20 15:00 Pulse Ox 96 10/22/20 15:00 Intake & Output 10/21/20 10/22/20 10/22/20 18:59 06:59 18:59 Intake Total 1195 1856 1633 Output Total 1125 900 815 Balance 70 956 818 Weight 128.5 kg 128.5 kg Intake: IV 35 825 675 0.9 Normal Saline @ KVO 20 0.9 Normal Saline 15 Pressure Bags Dextrose 5% in Water 1, 825 675 000 ml @ 75 mls/hr IV . [id number] [facility] Rx#:[id number] Intake, IV Titration 680 75 Amount Dextrose 5% in Water 1, 600 75 000 ml @ 75 mls/hr IV . [id number] [facility] Rx#:[id number] Sodium Chloride 0.9% 500 80 ml 500 ml @ 20 mls/hr IV .Q24H [facility] Rx#:[id number] Oral 100 Tube Feeding 160 526 458 Other 320 430 400 Output: Urine 1125 900 815 Other: Voiding Method Indwelling Catheter Indwelling Catheter Indwelling Catheter ABP, PAP, CO, CI - Last Documented Arterial Blood Pressure 108/57 - Exam On examination patient is a late middle aged female, who is semi- comatose, not responding to any commands. She is off sedation since 10/17/2020. Patient has tracheostomy in place. Patient is breathing over the ventilator, has gag and cough reflex. Patient's gaze is in the midline. Pupils are round and reacting. Visual vivar could not be tested. Oculocephalics are present. Corneals are present. Face appears grossly symmetric. Patient's hearing, shoulder, tongue cannot be checked. Patient does not respond to painful stimuli on either side, except for some minimal head movement. Patient does sometimes opens her eyes, not to the commands, but the gaze is up. Tone is equal and decreased bilaterally. No obvious seizure-like activity noted. Reflexes are absent. Plantars are flat. Cerebellar functions, motor functions cannot be tested. Patient has moderate peripheral edema. Abdomen is soft. - Labs CBC & Chem 7: 10/22/20 04:13 10/22/20 04:13 Labs: Abnormal Lab Results - Last 24 Hours (Table) 10/22/20 10/22/20 10/22/20 Range/Units 04:13 04:13 04:13 WBC 17.7 H (3.8-10.6) k/uL RBC 3.46 L (3.80-5.40) m/uL Hgb 10.2 L (11.4-16.0) gm/dL Hct 31.6 L (34.0-46.0) % RDW 17.4 H (11.5-15.5) % D-Dimer 4.22 H (<0.60) mg/L FEU ABG HCO3 (21-25) mmol/L ABG Total CO2 (19-24) mmol/L ABG O2 Saturation (94-97) % Chloride 115 H (98-107) mmol/L BUN 69 H (7-17) mg/dL Glucose 178 H (74-99) mg/dL POC Glucose (mg/dL) (75-99) mg/dL Calcium 7.9 L (8.4-10.2) mg/dL 10/22/20 10/22/20 10/22/20 Range/Units 04:32 06:43 11:43 WBC (3.8-10.6) k/uL RBC (3.80-5.40) m/uL Hgb (11.4-16.0) gm/dL Hct (34.0-46.0) % RDW (11.5-15.5) % D-Dimer (<0.60) mg/L FEU ABG HCO3 26 H (21-25) mmol/L ABG Total CO2 27 H (19-24) mmol/L ABG O2 Saturation 97.4 H (94-97) % Chloride (98-107) mmol/L BUN (7-17) mg/dL Glucose (74-99) mg/dL POC Glucose (mg/dL) 164 H 160 H (75-99) mg/dL Calcium (8.4-10.2) mg/dL Assessment and Plan Assessment: * Altered mental status, likely due to toxic metabolic encephalopathy. Etiology probably multifactorial as mentioned below. Patient has not shown any clinical improvement in the last 48 hours. Need to rule out other intracranial process. * Acute Covid-19 related pneumonia. Persistent elevated white cells 17.7. * Ventilatory dependent respiratory failure, requiring tracheostomy and PEG placement 10/20/2020. * Atrial fibrillation on Eliquis. * Anemia * Hypernatremia, resolved * Uremia with elevated BUN 69 (improving now from 83) with normal creatinine * C. difficile positive 10/16/2020. * Persistently elevated LFTs. (Today AST 43, ALT 143). * Recent E. coli UTI 10/12/2020 Plan: * Patient has not showed any clinical improvement in the last 48 hours. We will check computed tomography scan of the head to rule out any intracranial process. * Chest x-ray from today showed findings consistent with pneumonia, differential includes edema, ARDS. * EEG 10/20/2020 was moderate to severely abnormal due to diffuse slowing of background activity in delta and some theta range. This is suggestive of generalized cerebral dysfunction as can be seen with encephalopathy of toxic, metabolic or anoxic causes. No obvious epileptiform activity was seen. * Patient has atrial fibrillation, currently on Eliquis, cardiology following. * 2-D echo from 10/03/2020 shows normal left ventricular size, moderate concentric LVH, EF 55-60%. Normal left atrial size. * Treatment of other medical conditions as per IM and critical care. * Ammonia < 9 and TSH 3.20 * Patient on vancomycin for C. difficile. Addendum: Patient underwent stat computed tomography scan of the head today, which revealed age indeterminate although recent infarcts of the right MCA territory, left frontal, left occipital and left watershed regions as well as bilateral cerebellum. No hemorrhagic transformation. Findings are suggestive of embolic infarctions involving bilateral anterior and posterior circulation, likely from cardiac source. Spoke to patient's daughter Bonita, informed of the results. She wanted me to speak to her sister Dr. Posey, who is a surgeon. Informed her about the results of computed tomography scan. 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 Right MCA territory CVA is very large. Also has moderate side CVA on the left hemispheric region. Overall prognosis is poor. Dr. Posey will relay information to the other family members.
--- NOTE | 2020-10-22 22:06 | P.PN ---
Subjective This is a 67-year-old patient who follows with Dr. watkins . Patient was last seen in the ER about 5 days ago. She then had an having respiratory symptoms including cough for about 2 or 3 weeks prior to that. On this presentation is patient is altered sense. She was last seen normal at home on Monday. EMS was called out and they found the patient to be hypoxic with 46%. Patient was ventilated with a bag valve and pulse oxygenation improved. He was placed on a nonrebreather and brought here. Here patient's problem of BiPAP. And is some what delirious. Not able to give any history. Patient chronic stable medical conditions include diabetes, hypertension, hyperlipidemia, history of breast cancer with right mastectomy. No family members currently present. Admitted with acute severe bilateral COVID 19 pneumonia, acute severe hypoxic respiratory failure, acute metabolic encephalopathy, with delirium. Patient placed on oxygen. Decadron. Lovenox. Consultation to neurology, pulmonary. Lumbar puncture/CSF unremarkable. Patient was placed on BiPAP. Progression of respiratory status patient intubated on October 16. [facility] [employer] with rapid ventricular rate-sinus rhythm. pt remains in icu intubated with altered mental status pending tracheostomy and PEG tube placement today, surgery team are following 10/21/2020 Patient remains in the ICU intubated and sedated with pulmonary/critical care team following the case closely and help with vent management. Patient is status post tracheostomy and PEG placement yesterday. She is planned to undergo tube feeding today. She remains on PEEP of 10 and FiO2 of 50%. She still mentally unresponsive. Patient currently is on dexamethasone, multiple vitamins, Eliquis and amiodarone orally. Pulmonary team are planning to discharge her to LTAC 10/22/2020 Patient remains in the ICU intubated in critical condition, with altered mental status I discussed the case with the neurologist Dr. Chand today, it looks like patient has a large stroke. Family were informed. Stroke involved right MCA territory, left frontal, left occipital and left watershed regions as well as bilateral cerebellum, suggesting embolic phenomenon. Patient with diarrhea, C. diff test came back positive Patient was on Eliquis when this thrombotic event happened, since it is a large thrombosis of stroke then we will hold Eliquis tonight to decrease the risk of bleeding into the stroke. Respiratory bedside nurse family Kasia are planning to make the patient comfort care tomorrow. She continue on amiodarone, multiple vitamins, dexamethasone, and oral vancomycin was started for C. diff review of systems: n/a Active Medications Generic Name Dose Route Start Last Admin Trade Name Freq PRN Reason Stop Dose Admin Acetaminophen 650 mg 10/02/20 16:21 10/18/20 13:03 Acetaminophen Tab 325 Mg Tab PO 650 mg Q6HR PRN Administration Mild Pain or Fever > 100.5 Albuterol Sulfate 2 puff 10/03/20 23:18 10/22/20 19:15 Albuterol Hfa Inhaler INHALATION 2 puff RT-Q4H EILEEN Administration Albuterol Sulfate 2 puff 10/03/20 23:19 Albuterol Hfa Inhaler INHALATION RT-QID PRN Shortness Of Breath Or Wheezing Amiodarone HCl 400 mg 10/21/20 09:00 10/22/20 20:42 Amiodarone 200 Mg Tab PO 400 mg BID EILEEN Administration Apixaban 5 mg 10/21/20 21:00 10/22/20 20:42 Apixaban 5 Mg Tab PO Not Given BID EILEEN Ascorbic Acid 1,000 mg 10/03/20 09:00 10/22/20 08:51 Ascorbic Acid 500 Mg Tab PO 1,000 mg DAILY EILEEN Administration Chlorhexidine Gluconate 15 ml 10/08/20 09:00 10/22/20 20:42 Chlorhexidine Gluconate 15 Ml Cup MUCOUS MEM 15 ml BID EILEEN Administration Cholecalciferol 100 mcg 10/03/20 09:00 10/22/20 08:51 Cholecalciferol 25 Mcg (1000 Iu) Tablet PO 100 mcg DAILY EILEEN Administration Dexamethasone 6 mg 10/15/20 09:00 10/22/20 08:50 Dexamethasone 2 Mg Tab PO 6 mg DAILY EILEEN Administration Diltiazem HCl 60 mg 10/21/20 09:00 10/22/20 20:42 Diltiazem Oral 60 Mg Tab PO 60 mg QID EILEEN Administration Famotidine 20 mg 10/07/20 10:15 10/22/20 20:42 Famotidine 20 Mg/2 Ml Vial IV 20 mg BID EILEEN Administration Dextrose/Water 1,000 mls @ 75 mls/hr 10/21/20 10:15 10/22/20 14:57 Dextrose 5%-Water Iv Soln IV 75 mls/hr .[id number] EILEEN Administration Insulin Aspart 0 unit 10/22/20 06:00 10/22/20 17:54 Insulin Aspart (Novolog) 100 Unit/Ml Vial SQ 3 unit Q6H EILEEN Administration Protocol Metoprolol Tartrate 100 mg 10/13/20 09:00 10/22/20 20:42 Metoprolol Tartrate 50 Mg Tab PO 100 mg TID EILEEN Administration Sodium Chloride 10 ml 10/22/20 12:19 Sodium Chloride 0.9% Flush 10 Ml Syringe IV Q4HR PRN PICC Line Sodium Chloride 10 ml 10/29/20 09:00 Sodium Chloride 0.9% Flush 10 Ml Syringe IV WEEKLY EILEEN Sodium Chloride 20 ml 10/22/20 12:19 Sodium Chloride 0.9% Flush 10 Ml Syringe IV Q4HR PRN PICC Line Vancomycin HCl 250 mg 10/17/20 00:00 10/22/20 17:25 Vancomycin Oral Solution 250 Mg/5 Ml Bottle PO 250 mg Q6HR EILEEN Administration Zinc Sulfate 220 mg 10/03/20 09:00 10/22/20 08:50 Zinc Sulfate 220 Mg Cap PO 220 mg DAILY EILEEN Administration Objective - Vital Signs Vital signs: Vital Signs Temp 98.6 F 10/22/20 16:30 Pulse 89 10/22/20 18:00 Resp 24 10/22/20 18:00 BP 112/73 10/22/20 18:00 Pulse Ox 97 10/22/20 18:00 Intake & Output 10/22/20 10/22/20 10/23/20 06:59 18:59 06:59 Intake Total 1856 2397 Output Total 900 1035 Balance 956 1362 Weight 128.5 kg 128.5 kg Intake: IV 825 975 Dextrose 5% in Water 1, 825 975 000 ml @ 75 mls/hr IV . [id number] EILEEN Rx#:[id number] Intake, IV Titration 75 Amount Dextrose 5% in Water 1, 75 000 ml @ 75 mls/hr IV . [id number] EILEEN Rx#:[id number] Oral 100 Tube Feeding 526 722 Other 430 600 Output: Urine 900 1035 Other: Voiding Method Indwelling Catheter Indwelling Catheter ABP, PAP, CO, CI - Last Documented Arterial Blood Pressure 108/57 - Exam -GENERAL: The patient is altered mental status, AAOx0. obese. Unresponsive. Status post tracheostomy HEENT: Pupils are round and equally reacting to light. EOMI. No scleral icterus. No conjunctival pallor. Normocephalic, atraumatic. No pharyngeal erythema. No thyromegaly. CARDIOVASCULAR: S1 and S2 present. No murmurs, rubs, or gallops. PULMONARY: Chest is clear to auscultation, no wheezing or crackles -ABDOMEN: Soft, nontender, nondistended, normoactive bowel sounds. No palpable organomegaly. PEG tube is in place MUSCULOSKELETAL: No joint swelling or deformity. EXTREMITIES: No cyanosis, clubbing, or pedal edema. NEUROLOGICAL: Gross neurological examination did not reveal any focal deficits. SKIN: No rashes. no petechiae. - Labs CBC & Chem 7: 10/22/20 04:13 10/22/20 04:13 Labs: Abnormal Lab Results - Last 24 Hours (Table) 10/22/20 10/22/20 10/22/20 Range/Units 04:13 04:13 04:13 WBC 17.7 H (3.8-10.6) k/uL RBC 3.46 L (3.80-5.40) m/uL Hgb 10.2 L (11.4-16.0) gm/dL Hct 31.6 L (34.0-46.0) % RDW 17.4 H (11.5-15.5) % D-Dimer 4.22 H (<0.60) mg/L FEU ABG HCO3 (21-25) mmol/L ABG Total CO2 (19-24) mmol/L ABG O2 Saturation (94-97) % Chloride 115 H (98-107) mmol/L BUN 69 H (7-17) mg/dL Glucose 178 H (74-99) mg/dL POC Glucose (mg/dL) (75-99) mg/dL Calcium 7.9 L (8.4-10.2) mg/dL AST (14-36) U/L ALT (4-34) U/L Total Protein (6.3-8.2) g/dL Albumin (3.5-5.0) g/dL 10/22/20 10/22/20 10/22/20 Range/Units 04:13 04:32 06:43 WBC (3.8-10.6) k/uL RBC (3.80-5.40) m/uL Hgb (11.4-16.0) gm/dL Hct (34.0-46.0) % RDW (11.5-15.5) % D-Dimer (<0.60) mg/L FEU ABG HCO3 26 H (21-25) mmol/L ABG Total CO2 27 H (19-24) mmol/L ABG O2 Saturation 97.4 H (94-97) % Chloride (98-107) mmol/L BUN (7-17) mg/dL Glucose (74-99) mg/dL POC Glucose (mg/dL) 164 H (75-99) mg/dL Calcium (8.4-10.2) mg/dL AST 43 H (14-36) U/L ALT 143 H (4-34) U/L Total Protein 5.6 L (6.3-8.2) g/dL Albumin 2.8 L (3.5-5.0) g/dL 10/22/20 10/22/20 Range/Units 11:43 17:33 WBC (3.8-10.6) k/uL RBC (3.80-5.40) m/uL Hgb (11.4-16.0) gm/dL Hct (34.0-46.0) % RDW (11.5-15.5) % D-Dimer (<0.60) mg/L FEU ABG HCO3 (21-25) mmol/L ABG Total CO2 (19-24) mmol/L ABG O2 Saturation (94-97) % Chloride (98-107) mmol/L BUN (7-17) mg/dL Glucose (74-99) mg/dL POC Glucose (mg/dL) 160 H 174 H (75-99) mg/dL Calcium (8.4-10.2) mg/dL AST (14-36) U/L ALT (4-34) U/L Total Protein (6.3-8.2) g/dL Albumin (3.5-5.0) g/dL Assessment and Plan Assessment: -COVID 19 pneumonia with acute hypoxic respiratory failure, going for tracheostomy and PEG tube placement -Acute stroke with right MCA territory, left frontal, left occipital and left watershed regions as well as bilateral cerebellum, suggesting embolic phenomenon. Most likely cardiac source. Stroke happened while the patient is on Eliquis, therapeutic dose -Paroxysmal atrial fibrillation, with RVR -AMS secondary to covid infection and metabolic encephalopathy -Hypernatremia -Transaminitis likely secondary to covid and hypotension -Gallstones, asymptomatic -Morbid obesity with BMI 41 -Acute UTI with cystitis from E. coli -Legal guardian: Krista patient's sister -Acute C. diff colitis Plan: This is a pleasant 67 years old female who presents with Covid pneumonia and hypoxia. Continue with Decadron, Zinc, vitamin C, vitamin D, . oral vancomycin. Continue with tube feedings, vent management with tracheostomy in place Patient is with large stroke, hold Eliquis tonight to prevent hemorrhagic transformation. Prognosis is extremely poor given the widespread peritoneal stroke, advanced respiratory failure and other complex medical illnesses. Family are willing to make the patient comfort care tomorrow Neurology and Pulmonary/critical care team on the case and follow-up with a recommendation. DVT and GI prophylaxis
[2020-10-22 23:34] LABS: Glucose,Whole Blood 215 mg/dL (75-99)
[2020-10-23 01:25] LABS: Hemoglobin A1C 6.1 % (4.0-6.0)
[2020-10-23] MEDS: DEXTROSE 5% IN WATER 1,000 ML IV SCH ×3 (02:28→23:47)
[2020-10-23] MEDS: ALBUTEROL HFA INHALER INHALATION SCH ×2 (03:26→07:07)
[2020-10-23 05:21] VITALS: TEMP 97.8
--- NOTE | 2020-10-23 06:07 | P.CONS ---
History of Present Illness - Chief Complaint Medical debility - History of Present Illness I had the opportunity to see patient for inpatient rehab consultation with regard to medical debility. Patient admitted to [facility] October 02 with Covid pneumonia for which is seen by cardiology and Dr. Vee. Seen by neurology, son for strokes. Recent head CT demonstrates right MCA infarcts multiple. Chest x-rays followed for pneumonia. Seen by Dr. cheema who did place PEG tube. Patient also on oxygen. Nurse informs the patient going to comfort care due to strokes today. Review of Systems Review of systems: ENT: Denies sneezes or discharge. Eyes: Denies discharge or photophobia. Cardiac: Denies chest pain or palpitation. Pulmonary: Covid ammonia. Breast: Denies discharge or lumps. Gastrointestinal: Denies nausea, emesis, constipation, diarrhea. Genitourinary: Denies discharge or frequency. Musculoskeletal: Denies muscle or bone aches. Neurologic: Obtunded. Endocrine: Denies shakes or sweats. Oncology: Denies cancers. Dermatologic: Denies rash, itching, pruritus. ALLERGY/immunology: Denies sneezes, rashes. Past Medical History Past Medical History: No Reported History History of Any Multi-Drug Resistant Organisms: None Reported Past Surgical History: Orthopedic Surgery Past Psychological History: Unable to Obtain Smoking Status: Former smoker Past Alcohol Use History: None Reported Past Drug Use History: None Reported - Past Family History Father Family Medical History: Cancer, Hypertension Mother Family Medical History: Cancer Medications and Allergies Home Medications Medication Instructions Recorded Confirmed Type No Known Home Medications 10/02/20 10/02/20 History Allergies Allergy/AdvReac Type Severity Reaction Status Date / Time codeine Allergy Rash/Hives Verified 10/02/20 15:23 Sulfa (Sulfonamide Allergy Rash/Hives Verified 10/02/20 15:23 Antibiotics) Penicillins AdvReac Unknown Verified 10/12/20 23:38 Physical Exam Vitals: Vital Signs Temp Pulse Resp BP Pulse Ox 10/23/20 06:00 93 19 121/72 98 10/23/20 05:00 83 17 105/66 96 10/23/20 04:00 97.8 F 79 31 H 97 10/23/20 03:00 76 19 104/67 97 10/23/20 02:00 86 27 H 113/73 96 10/23/20 01:00 76 25 H 113/73 97 10/23/20 00:00 98.1 F 76 24 116/69 97 10/22/20 23:15 77 22 95 10/22/20 23:00 79 25 H 104/63 97 10/22/20 22:00 75 24 111/67 97 10/22/20 21:00 85 27 H 108/65 97 10/22/20 20:00 98.3 F 86 19 101/66 97 10/22/20 19:00 78 24 116/72 97 10/22/20 18:00 89 24 112/73 97 10/22/20 17:00 100 24 112/73 96 10/22/20 16:30 98.6 F 100 24 124/84 96 10/22/20 16:00 24 10/22/20 15:30 93 16 97 10/22/20 15:00 95 21 117/82 96 10/22/20 14:00 92 27 H 109/69 96 10/22/20 13:00 86 28 H 110/73 97 10/22/20 12:00 98.2 F 89 24 106/68 96 10/22/20 11:00 84 24 104/72 98 10/22/20 10:00 82 24 116/68 97 10/22/20 09:00 98 26 H 107/72 96 10/22/20 08:00 98.2 F 93 24 106/71 97 10/22/20 07:00 94 29 H 111/71 97 Intake and Output 10/22/20 10/22/20 10/23/20 14:59 22:59 06:59 Intake Total 1492 1528 1188 Output Total 715 530 645 Balance 777 998 543 Intake: IV 600 600 600 Dextrose 5% in Water 1, 600 600 600 000 ml @ 75 mls/hr IV . [id number] [facility] Rx#:[id number] Oral 100 Tube Feeding 392 528 528 Other 400 400 60 Output: Urine 715 530 645 Other: Voiding Method Indwelling Catheter Indwelling Catheter Indwelling Catheter Weight 128.5 kg 127.3 kg Skin: Good color, texture, turgor. General: Obese build and obtunded appearance. Head: Normocephalic, atraumatic. Eyes: Symmetric. Pupils equal round. Ears: Symmetric. Hearing within normal limits. Mouth: Clear. Neck: Supple. Carotid without bruit. Cardiac: Regular rate and rhythm. Lungs: Clear anteriorly and posteriorly. Abdomen: Soft active nontender. Extremities: Normal decrease. Air boot. Neurological: Mental status: Obtunded. Cranial nerves: Symmetric facial tone and trapezius. Motor: Right arm poor in tone noted left arm and both legs. Sensation: Intact depressed throughout. DTRs: Symmetric and equal throughout. Mobility: Requires physical assistance for any mobility of limbs or torso. Results CBC & Chem 7: 10/22/20 04:13 10/22/20 04:13 Labs: Abnormal Lab Results - Last 24 Hours (Table) 10/22/20 10/22/20 10/22/20 Range/Units 04:13 04:13 06:43 POC Glucose (mg/dL) 164 H (75-99) mg/dL Hemoglobin A1c 6.1 H (4.0-6.0) % AST 43 H (14-36) U/L ALT 143 H (4-34) U/L Total Protein 5.6 L (6.3-8.2) g/dL Albumin 2.8 L (3.5-5.0) g/dL 10/22/20 10/22/20 10/22/20 Range/Units 11:43 17:33 23:33 POC Glucose (mg/dL) 160 H 174 H 215 H (75-99) mg/dL Hemoglobin A1c (4.0-6.0) % AST (14-36) U/L ALT (4-34) U/L Total Protein (6.3-8.2) g/dL Albumin (3.5-5.0) g/dL Assessment and Plan (1) Pneumonia due to COVID-19 virus Current Visit: Yes Status: Acute Code(s): U07.1 - COVID-19; J12.82 - Pneumonia due to coronavirus disease 2018 SNOMED Code(s): 565989706999896348 Plan: Impression: #1 debility due to Covid pneumonia. 2. Multiple strokes. Comments and plan: At this time patient going to comfort care.
[2020-10-23] MEDS: VANCOMYCIN ORAL SOLUTION 250 MG/5 ML BOTTLE PO SCH ×2 (06:39→14:00)
[2020-10-23] MEDS: INSULIN ASPART (NovoLOG) 100 UNIT/ML VIAL SQ SCH ×2 (06:39→13:59)
[2020-10-23 06:49] LABS: Glucose,Whole Blood 165 mg/dL (75-99)
[2020-10-23 08:31] LABS: Anisocytosis Slight; Basophils % (A) 0 %; Eosinophils % (A) 0 %; HGB 9.1 gm/dL (11.4-16.0); Hypochromasia Slight; Lymphocytes # (A) 0.5 k/uL (1.0-4.8); Lymphocytes % (A) 4 %; MCH 30.2 pg (25.0-35.0); MCHC 32.7 g/dL (31.0-37.0); MCV 92.4 fL (80.0-100.0); Monocytes # (A) 0.3 k/uL (0-1.0); Monocytes % (A) 2 %; Neutrophils # (A) 11.9 k/uL (1.3-7.7); Neutrophils % (A) 93 %; Platelet Count 241 k/uL (150-450); RBC 3.02 m/uL (3.80-5.40); RDW 16.9 % (11.5-15.5); WBC 12.7 k/uL (3.8-10.6)
[2020-10-23 08:48] LABS: African American GFR (CKD) >90 (>60 ml/min/1.73 sqM); Anion Gap 4 mmol/L; Blood Urea Nitrogen 51 mg/dL (7-17); Carbon Dioxide 25 mmol/L (22-30); Chloride 104 mmol/L (98-107); Glucose 398 mg/dL (74-99); Non-African American GFR(CKD) >90 (>60 ml/min/1.73 sqM); Potassium 4.2 mmol/L (3.5-5.1); Sodium 133 mmol/L (137-145)
--- NOTE | 2020-10-23 09:20 | XR ---
EXAMINATION TYPE: XR chest 1V portable DATE OF EXAM: 10/23/2020 COMPARISON: Chest x-ray 10/22/2020 HISTORY: Abnormal chest x-ray, tracheostomy tube TECHNIQUE: Single frontal view of the chest is obtained. FINDINGS: Tracheostomy tube, right-sided PICC line are stable overlying appropriate positions, the l eft-sided central venous catheter has been removed. There is no evident pneumothorax or pleural effus ion. Cardiac mediastinal silhouette is unchanged. Bilateral airspace disease persists. Aorta is dense . IMPRESSION: Interval line removal. Correlate for pneumonia.
[2020-10-23] MEDS ORDERED: LORazepam 2 MG/ML INJ IV PRN (10:43)
[2020-10-23] MEDS ORDERED: ATROPINE OPHTH SOLN 1% 5ML BTL SUBLINGUAL PRN (10:43)
[2020-10-23] MEDS ORDERED: MORPHINE SULFATE 2 MG/ML SYRINGE IV PRN (10:43)
[2020-10-23] MEDS ORDERED: ONDANSETRON 4 MG/2 ML VIAL IVP PRN (10:43)
[2020-10-23] MEDS ORDERED: MORPHINE SULFATE 2 MG/ML SYRINGE IVP ONE (10:43)
[2020-10-23] MEDS: ASCORBIC ACID 500 MG TAB PO SCH (10:56)
[2020-10-23] MEDS: APIXABAN 5 MG TAB PO SCH (10:56)
[2020-10-23] MEDS: AMIODARONE 200 MG TAB PO SCH (10:56)
[2020-10-23] MEDS: CHOLECALCIFEROL 25 MCG (1000 IU) TABLET PO SCH (10:57)
[2020-10-23] MEDS: FAMOTIDINE 20 MG/2 ML VIAL IV SCH (10:57)
[2020-10-23] MEDS: dexAMETHasone 2 MG TAB PO SCH (10:57)
[2020-10-23] MEDS: ZINC SULFATE 220 MG CAP PO SCH (10:57)
[2020-10-23] MEDS: METOPROLOL TARTRATE 50 MG TAB PO SCH ×2 (10:57→16:44)
[2020-10-23] MEDS: CHLORHEXIDINE GLUCONATE 15 ML CUP MUCOUS MEM SCH (10:57)
[2020-10-23] MEDS: DILTIAZEM ORAL 60 MG TAB PO SCH ×2 (10:57→14:01)
[2020-10-23] MEDS ORDERED: SCOPOLAMINE 1.5MG/72HR PATCH TRANSDERM SCH (11:00)
[2020-10-23] MEDS: MORPHINE SULFATE (100 MG/2 ML) 100 MG in SODIUM CHLORIDE 0.9% 100 ML IV SCH ×2 (11:17→17:53)
[2020-10-23 13:09] VITALS: BMI 41.4
--- NOTE | 2020-10-23 14:40 | P.PN ---
Progress Note - Text Progress Note Date: 10/23/20 I had a family meeting, with patient's daughter Melina and sister Krista (legal guardian) and another sister at 1:15 PM today. Discussed at length about patient's current clinical condition, the CT scan report, and overall prognosis. All of the questions were answered to their satisfaction. Patient has been made comfort care on morphine drip. Please call neuro for any other concerns.
[2020-10-23 15:25] VITALS: BP 99/79; PULSE 128
[2020-10-23 22:45] VITALS: RESP 32
[2020-10-24] MEDS: MORPHINE SULFATE (100 MG/2 ML) 100 MG in SODIUM CHLORIDE 0.9% 100 ML IV SCH (01:10)
== END 2020-10-24 04:54 | disposition expired | DRG 4 ==
LOC: EC 12:35 → 3SCARD 16:21 → EEVIPCON 16:21 → MERGE 16:21 → 3SCARD 20:39 → 2SICU 10-03 10:53 → 4SSUR 10-23 16:39
PROVIDERS: ADMIT Hospitalist; ATTEND Hospitalist
PROC: 3E0333Z Introduction of Anti-inflammatory into Peripheral Vein, Percutaneous Approach (ICD-10-PCS; 2020-10-02)
PROC: XW033H5 Introduction of Tocilizumab into Peripheral Vein, Percutaneous Approach, New Technology Group 5 (ICD-10-PCS; 2020-10-03)
PROC: XW13325 Transfusion of Convalescent Plasma (Nonautologous) into Peripheral Vein, Percutaneous Approach, New Technology Group 5 (ICD-10-PCS; 2020-10-03)
PROC: 5A09457 Assistance with Respiratory Ventilation, 24-96 Consecutive Hours, Continuous Positive Airway Pressure (ICD-10-PCS; 2020-10-04)
PROC: 0BH17EZ Insertion of Endotracheal Airway into Trachea, Via Natural or Artificial Opening (ICD-10-PCS; 2020-10-07)
PROC: 03HY33Z Insertion of Infusion Device into Upper Artery, Percutaneous Approach (ICD-10-PCS; 2020-10-07)
PROC: 4A133B1 Monitoring of Arterial Pressure, Peripheral, Percutaneous Approach (ICD-10-PCS; 2020-10-07)
PROC: 4A133J1 Monitoring of Arterial Pulse, Peripheral, Percutaneous Approach (ICD-10-PCS; 2020-10-07)
PROC: 5A1955Z Respiratory Ventilation, Greater than 96 Consecutive Hours (ICD-10-PCS; 2020-10-08)
PROC: 05HN33Z Insertion of Infusion Device into Left Internal Jugular Vein, Percutaneous Approach (ICD-10-PCS; 2020-10-08)
PROC: 02HV33Z Insertion of Infusion Device into Superior Vena Cava, Percutaneous Approach (ICD-10-PCS; 2020-10-08)
PROC: 0DH63UZ Insertion of Feeding Device into Stomach, Percutaneous Approach (ICD-10-PCS; 2020-10-08)
PROC: 3E033XZ Introduction of Vasopressor into Peripheral Vein, Percutaneous Approach (ICD-10-PCS; 2020-10-12)
PROC: 0BH17EZ Insertion of Endotracheal Airway into Trachea, Via Natural or Artificial Opening (ICD-10-PCS; 2020-10-16)
PROC: 0DH63UZ Insertion of Feeding Device into Stomach, Percutaneous Approach (ICD-10-PCS; 2020-10-20)
PROC: 0B110F4 Bypass Trachea to Cutaneous with Tracheostomy Device, Open Approach (ICD-10-PCS; principal; 2020-10-20 13:30)
PROC: 02HV33Z Insertion of Infusion Device into Superior Vena Cava, Percutaneous Approach (ICD-10-PCS; 2020-10-22)
DX: U07.1 COVID-19 (principal); J12.82 Pneumonia due to coronavirus disease 2019; J80 Acute respiratory distress syndrome; G92 Toxic encephalopathy; I63.411 Cerebral infarction due to embolism of right middle cerebral artery; R65.21 Severe sepsis with septic shock; A41.89 Other specified sepsis; A41.51 Sepsis due to Escherichia coli [E. coli]; Z68.41 Body mass index [BMI] 40.0-44.9, adult; E87.1 Hypo-osmolality and hyponatremia; I47.1 Supraventricular tachycardia; I48.3 Typical atrial flutter; A04.72 Enterocolitis due to Clostridium difficile, not specified as recurrent; E44.0 Moderate protein-calorie malnutrition; N17.9 Acute kidney failure, unspecified; Z99.11 Dependence on respirator [ventilator] status; E87.0 Hyperosmolality and hypernatremia; Z51.5 Encounter for palliative care; Z66 Do not resuscitate; R57.0 Cardiogenic shock; N30.90 Cystitis, unspecified without hematuria; J84.89 Other specified interstitial pulmonary diseases; I48.0 Paroxysmal atrial fibrillation; E86.1 Hypovolemia; E66.01 Morbid (severe) obesity due to excess calories; E86.0 Dehydration; K80.20 Calculus of gallbladder without cholecystitis without obstruction; B96.20 Unspecified Escherichia coli [E. coli] as the cause of diseases classified elsewhere; E87.5 Hyperkalemia; I10 Essential (primary) hypertension; Z87.891 Personal history of nicotine dependence; R74.01 Elevation of levels of liver transaminase levels; Z79.01 Long term (current) use of anticoagulants; E78.5 Hyperlipidemia, unspecified; Z85.3 Personal history of malignant neoplasm of breast; Z90.11 Acquired absence of right breast and nipple; Z79.899 Other long term (current) drug therapy; Z82.49 Family history of ischemic heart disease and other diseases of the circulatory system; E11.9 Type 2 diabetes mellitus without complications; D64.9 Anemia, unspecified; Z88.5 Allergy status to narcotic agent; Z88.2 Allergy status to sulfonamides
CPT/HCPCS: 36415; 36573; 36600; 43246; 70450; 71045; 71046; 76705; 80048; 80053; 80076; 82140; 82150; 82550; 82728; 82805; 83036; 83605; 83615; 83690; 83735; 83880; 84100; 84132; 84145; 84443; 84478; 84484; 85025; 85027; 85379; 85610; 85730; 86140; 86850; 86900; 86901; 87040; 87070; 87077; 87086; 87186; 87205; 87324; 93005; 93306; 93970; 94002; 94003; 94640; 94660; 95816; 96365; 96368; 96375; 99291